=== PATIENT | male | born 1955 | race Caucasian/White ===

== ENCOUNTER → 2017-08-08 08:37 | Outpatient (CLI) | payer OTHER, SELFPAY ==
--- NOTE | 2017-08-08 08:41 | ECHOD_ITS ---
Reason For Study: AFIB/FLUTTER Procedure This was a 2D Doppler, Color Flow transthoracic echocardiogram. The exam was of fair technical quality due to body habitus. The study was technically difficult. Exam performed in department. Left Ventricle Normal LV size. Severe segmental systolic dysfunction (see wall motion). The estimated ejection fraction is 20 %. Unable to assess diastolic dysfunction. Anterio-Basal: Hypokinetic. Lateral- Basal: Hypokinetic. Posterior-Basal: Hypokinetic. Infero-Basal: Akinetic. Basal inferoseptal: Hypokinetic. Mid-Anterior : Severely Hypokinetic. Mid-Lateral : Severely Hypokinetic. Mid- Posterior: Severely Hypokinetic. Mid-Inferior: Severely Hypokinetic. Mid-inferoseptal : Severly Hypokinetic. Mid-anteroseptal : Severely Hypokinetic. Lawrence : Severely Hypokinetic. Right Ventricle Mildly dilated right ventricle. Mild global right ventricular systolic dysfunction. Atria The left atrium is severely enlarged. The right atrium is moderately enlarged. No doppler evidence for ASD. Mitral Valve There is no mitral annular calcification. Normal mitral valve. Mild (1+) mitral valve insufficiency. Tricuspid Valve Normal tricuspid valve. Mild tricuspid valve insufficiency. Right ventricular systolic pressure estimated to be 48 mmHg. Aortic Valve Trisinus/trileaflet aortic valve. Mild diffuse aortic valve thickening. Mild diffuse aortic valve calcification. Severe aortic stenosis. Pulmonic Valve The pulmonic valve is not well visualized. Trivial pulmonic valve insufficiency. Great Vessels Normal sized aortic root. Pericardium/Pleural No pericardial effusion. MMode/2D Measurements & Calculations LVIDd: 5.3 cm IVSd: 1.2 cm LVOT diam: 2.0 cm LVIDs: 4.4 cm LVPWd: 1.2 cm LVOT area: 3.2 cm2 RVDd: 4.2 cm FS: 17.4 % Ao root diam: 3.2 cm LAV(MOD-bp): 113.5 ml LVAd ap4: 35.8 cm2 LAV(MOD-bp) Indexed: 49.7 ml/m2 EDV(MOD-sp4): 127.0 ml LAV(MOD-sp2): 123.4 ml EDV(sp4-el): 128.7 ml LAV(MOD-sp4): 101.5 ml LVAs ap4: 32.2 cm2 ESV(MOD-sp4): 98.5 ml ESV(sp4-el): 100.7 ml EF(MOD-sp4): 22.5 % EF(sp4-el): 21.7 % SV(MOD-sp4): 28.5 ml SV(sp4-el): 28.0 ml LA A4 area: 30.1 cm2 RA A4 area: 31.6 cm2 Doppler Measurements & Calculations MV E max juliette: 89.3 cm/sec Ao V2 max: 233.2 cm/sec LV V1 max: 58.5 cm/sec Ao max P.9 mmHg LV V1 max P.4 mmHg Ao V2 mean: 179.9 cm/sec LV V1 mean P.79 mmHg Ao mean P.2 mmHg LV V1 mean: 41.0 cm/sec Ao V2 VTI: 41.6 cm LV V1 VTI: 11.2 cm JUAN JOSÉ(I,D): 0.87 cm2 JUAN JOSÉ(V,D): 0.81 cm2 SV(LVOT): 36.2 ml PA V2 max: 60.6 cm/sec TR max juliette: 335.5 cm/sec TR max P.1 mmHg Interpretation Summary The study was technically difficult. Severe segmental systolic dysfunction (see wall motion). The estimated ejection fraction is 20 %. Mildly dilated right ventricle. Mild global right ventricular systolic dysfunction. The left atrium is severely enlarged. The right atrium is moderately enlarged. Mild (1+) mitral valve insufficiency. Mild tricuspid valve insufficiency. Severe aortic stenosis. Trivial pulmonic valve insufficiency. Right ventricular systolic pressure estimated to be 48 mmHg. Unable to assess diastolic dysfunction. Ordering Physician: Nathan Rojo Referring Physician: DANYA LUNA Performed By: Kyra Hill RDCS
== END ==
PROVIDERS: Family Provider Nurse Practitioner; PCP Nurse Practitioner; Visit Provider Internal Medicine Cardiovascular Disease
DX: I48.0 Paroxysmal atrial fibrillation (principal); I10 Essential (primary) hypertension; Z79.01 Long term (current) use of anticoagulants
CPT/HCPCS: 93306

== ENCOUNTER → 2017-08-15 10:17 | Outpatient (CLI) | payer OTHER, SELFPAY ==
--- NOTE | 2017-08-15 10:19 | RAD_ITS ---
STUDY: X-RAY CHEST REASON FOR EXAM: Male, 61 years old. Abnormal echocardiogram TECHNIQUE: Frontal and lateral views of the chest. COMPARISON: 08/25/2012, 04/24/2014. FINDINGS: The lungs are clear and expanded. Stable granuloma right lower lung. There is no demonstrated pleural abnormality. There is mild cardiac enlargement. Normal mediastinum and alec. Normal visualized pulmonary arteries. Normal visualized aortic arch and descending thoracic aorta. Normal visualized thoracic spine. Normal visualized ribs, clavicles, and shoulders. There is no demonstrated abnormality of the visualized soft tissue structures of the upper abdomen. RAD/Chest PA and Lateral IMPRESSION: Mild cardiomegaly. No infiltrate. Stable granuloma right lower lung. Electronically Signed: Edmund Chavez DO at 23:56 EDT , Service support ,
[2017-08-15 11:38] LABS: Partial Thromboplast Time 37.9 Seconds (24.1-36.2)
[2017-08-15 11:40] LABS: Hematocrit 51.7 % (40-54); Hemoglobin 16.1 g/dl (13.0-16.5); Mean Corp Hgb Conc 31.1 g/gl (32-36); Mean Corpuscular Hgb 30.6 pg (27.0-32.0); Mean Corpuscular Volume 98.1 fL (80-94); Mean Platelet Vol. 10.9 fl (6.2-12.0); Platelet Count 196 K/mm3 (150-450); RBC Distribution Width CV 20.8 % (11.6-14.6); RBC Distribution Width SD 75.7 fl (35.1-43.9); Red Blood Count 5.27 M/mm3 (4.6-6.2); White Blood Count 8.2 K/mm3 (4.4-11.0)
[2017-08-15 11:42] LABS: Scan Indicated on CBC? Y/N YES- FLAGS NOTED
[2017-08-15 11:56] LABS: Anion Gap 9 (5-15); BUN 17 mg/dL (7-18); Calcium,Total 8.9 mg/dL (8.5-10.1); Chloride 106 mmol/L (98-107); Creatinine, Serum 0.85 mg/dL (0.70-1.30); EST Glomerular Filtration Rate 97 mL/min (>60); Est Glom Filt Rate - Afr Amer 118 mL/min (>60); Glucose 86 mg/dL (74-106); Potassium 4.4 mmol/L (3.5-5.1); Sodium Level 139 mmol/L (136-145)
[2017-08-15 12:25] LABS: Differential Comment SCANNED
== END ==
PROVIDERS: Family Provider Nurse Practitioner; PCP Nurse Practitioner; Visit Provider Internal Medicine Cardiovascular Disease
DX: I51.9 Heart disease, unspecified (principal); I35.0 Nonrheumatic aortic (valve) stenosis; R93.1 Abnormal findings on diagnostic imaging of heart and coronary circulation; I48.0 Paroxysmal atrial fibrillation; R60.0 Localized edema
CPT/HCPCS: 36415; 71046; 80048; 85027; 85610; 85730; 93225; 93226

== ENCOUNTER 2017-08-22 07:59 | Day surgery (SDC) | payer OTHER, SELFPAY ==
--- NOTE | 2017-08-22 07:59 | DT_ITS ---
This patient was seen during an EMR downtime August 20, 2017 - August 27, 2017. This patient may have a combination of paper and electronic documentation or all paper documentation. All documentation is viewable within the e-chart portion of [facility] for each patient visit.
--- NOTE | 2017-08-24 16:57 | CL.D_ITS ---
Patient Name: SABRA DAVID Study Date: 08/22/2017 Performing: Nathan Rojo MD Ht: 72 inches 182.88 cm : 1955 Wt: 235.3 lbs 106.59 kg Age: 61 Gender: male BSA: 2.28 PROCEDURE(S) PERFORMED LF81-PVU/LHC/COR/LV CLINICAL PROFILE AND INDICATIONS Indications: Cardiac Arrythmia, Valvular Disease, Cardiomyopathy Heart Failure: None Stress/Imaging Stress/Image Study Performed: No Angina Classification Anginal Classification w/in 2 Weeks: No symptoms CAD Presentations: No Sxs, no angina. CONCLUSIONS Elevated Left Ventricular End Diastolic Pressure Right heart pressures - severely elevated The patient has pulmonary hypertension which is severe. Intracardiac shunting: None Global LV systolic dysfunction- Severe LVEF: by LV gram 25 % [place] Multivessel CAD Aortic Valve Stenosis - Mild RECOMMENDATIONS Risk factor modification Medical therapy Consider further evaluation of AV disorder with JILL DESCRIPTION OF PROCEDURE The patient arrived to the procedure lab. The risks and benefits of the procedure as well as a full d escription of our services here and current unavailability of surgical backup were fully explained to the patient and/or their significant other prior to the catheterization. The Timeout was completed, verifying the correct patient and procedure. The patient's procedural site was prepped and draped in the usual fashion. Local anesthetic was given subcutaneously to right groin region with Lidocaine 2%. Using a modified Seldinger technique, arterial access was obtained via the right femoral artery, a 4 Fr sheath was inserted Venous access was obtained via the right femoral vein, a 7Fr sheath was insert ed. A 7Fr thermal dilution catheter was inserted and right heart pressures were recorded, it was then advanced to PA position for cardiac outputs. Thermal dilution cardiac outputs were then recorded. O2 saturations were then obtained. Left Ventriculography was performed in FAJARDO projection using a 4 Fr. Pigtail catheter. LV to AO pullback pressures were then recorded. The Thermal dilution catheter was t hen removed. Left Coronary Artery selective angiography was performed in multiple views using a 4 Fr. JL5 catheter. Right Coronary Artery selective angiography was then performed in multiple views using a 4 Fr. 3DRC catheter.The arterial sheath was pulled and manual compression applied until hemostasis is achieved.. The venous sheath was then pulled and manual compression applied until hemostasis achi eved CORONARY ANGIOGRAPHY DOMINANCE: Right Dominant LEFT HEART ASSESSMENT Left Ventricular Ejection Fraction: by LV Gram 25 % Global Hypokinesis. Global Hypokinesis Elevated Left Ventricular End Diastolic Pressure LVEDP: 16 mmHg RIGHT HEART ASSESSMENT Thermal CO: 3.98 Thermal CI: 1.75 Bo CO: 4.95 Bo CI: 2.17 PW: /24 20 PA: 62/30 40 RV: 53/2 11 RA: / 12 PVR: 402 SVR: 1769 Aortic Valve Area: 1.85 Aortic Valve Index: 0.81 Aortic Valve Mean Gradient: 7.7 Mitral Valve Area: >3.50 Mitral Valve index: 1.54 Mitral Valve Mean Gradient: 1.9 Right Heart pressures - elevated Pulmonary Hypertension Severe Intracardiac shunting: None LEFT MAIN: Angiographically normal LEFT ANTERIOR DECENDING ARTERY: PROX LAD: Mild calcification, Mild luminal irregularities MID LAD: 25-50 % Stenosis CIRCUMFLEX ARTERY: Mild luminal irregularities PROX CIRC: Mild calcification RIGHT CORONARY ARTERY: Mild luminal irregularities MID RCA: Eccentric: 25 % Stenosis VALVE FINDINGS: Aortic Valve Stenosis - mild Normal Mitral Valve function AORTIC ROOT: Angiographically normal COMPLICATIONS No Complications PROCEDURE MEDICATIONS Versed 1 mg IV Versed 1 mg IV SUMMARY OF HEMODYNAMIC DATA Time AIR REST ECG 11:39:59 RA /13 (12) SV 12:02:43 RV 53/2, 11 12:07:24 PW (20) PV 12:09:15 PA 62/30 (40) PA 12:09:29 AO 131/78 (100) SA 12:16:12 LV 124/17, 23 12:18:03 PW / (21) 12:18:03 LV 125/15, 16 12:18:10 PW / (20) 12:18:10 LV 139/10, 16 12:19:59 PW / (18) 12:19:59 LV 136/11, 19 12:20:18 LVp 141/10, 18 12:20:29 AOp 124/76 (96) 12:20:34 PA 61/27 (38) 12:21:09 RV 51/3, 10 12:21:26 RA /13 (11) 12:21:43 Valve Area (c P-P/ms Time AIR REST Mitral 3.50 1.9 mn/242 ms 12:18:03 Aortic 1.86 7.7 mn/216 ms 17.0 pk/216 ms 12:20:29 Type SV CO (l/m) CI (l/m/ HR Time AIR REST Thermal 48.00 3.98 1.75 83 00:00:00 Bo 59.60 4.95 2.17 83 00:00:00 Label % O2 Pres/Loc Time AIR REST AO 96 PV 12:43:27 SVC 59 12:43:53 IVC 68 SV 12:44:05 PA 62 PA 12:44:27 Signed By Nathan Rojo MD On 08/24/2017 14:51:55 Nathan Rojo MD
[2017-08-27 12:31] LABS: Blood Gas Specimen Type VEN; VBG BASE EXCESS 2 mmol/L (-1.0-3.5); VBG Bicarbonate 26 mmol/L (22-26); VBG Oxygen Content 28 mmol/L (23-33); VBG PO2 32 mmHg (25-40); VBG SO2 62 % (50-70); VBG pCO2 42.1 mmHg (41-51); VBG pH 7.41 (7.32-7.42)
[2017-08-27 12:31] LABS: Blood Gas Specimen Type VEN; VBG BASE EXCESS -1 mmol/L (-1.0-3.5); VBG Bicarbonate 25 mmol/L (22-26); VBG Oxygen Content 26 mmol/L (23-33); VBG PO2 32 mmHg (25-40); VBG SO2 59 % (50-70); VBG pH 7.37 (7.32-7.42)
[2017-08-27 12:31] LABS: Base Excess -1 mmol/L (-2 to +2); Bicarbonate 23.5 mmol/L (22-26); Blood Gas Specimen Type ART; PO2 76 mmHG (75-100); SO2 96 % (95-99); Total Carbon Dioxide 25 mmol/L; pCO2 34.7 mmHg (35-45); pH 7.44 (7.35-7.45)
[2017-08-27 12:31] LABS: Blood Gas Specimen Type VEN; VBG BASE EXCESS -1 mmol/L (-1.0-3.5); VBG Bicarbonate 24 mmol/L (22-26); VBG Oxygen Content 26 mmol/L (23-33); VBG PO2 36 mmHg (25-40); VBG SO2 68 % (50-70); VBG pCO2 40.7 mmHg (41-51); VBG pH 7.39 (7.32-7.42)
--- NOTE | 2017-09-11 08:42 | PCM.HP.BLA ---
Problem List (1) Paroxysmal atrial fibrillation Status: Acute (2) Nonrheumatic aortic (valve) stenosis Status: Chronic (3) Severe left ventricular systolic dysfunction Status: Acute (4) Hypertension Status: Chronic History and Physical Date of Admission: 08/22/17 For original history of present illness, past medical history, family history, social history, review of systems, physical examination, initial impression and plan please see previously dictated outpatient [facility] from 07/19/2017. This is an updated history of present illness to accompany the 08/22/2017 outpatient [facility] and written update of history of present illness. This is a 61-year-old white male who presented originally for evaluation for paroxysmal atrial fibrillation. He subsequently underwent evaluation as an outpatient with a transthoracic echocardiogram. He was noted to have left ventricular systolic dysfunction with an LVEF of 20%, right ventricular dysfunction, biatrial enlargement, mild MR/TR, severe aortic valve stenosis, and an estimated RV systolic pressure 48 mmHg. His case was reviewed. It was recommended he proceed with further evaluation with diagnostic cardiac catheterization. The cardiac catheterization procedure and risks were discussed with the patient. He was agreeable to this approach. Allergies: No known drug allergies Medications: Furosemide 1 tablet p.o. daily Potassium chloride 20 mEq p.o. daily Magnesium oxide 400 mg p.o. daily Sotalol 80 mg p.o. daily Warfarin 5 mg p.o. daily-adjustment as needed Gabapentin 300 mg p.o. 3 times daily Past medical history: Paroxysmal atrial fibrillation Obstructive sleep apnea Hypertension Lower extremity peripheral pitting edema Past surgical history: Hernia repair Laminectomy Family history: Father: Atrial fibrillation/diabetes mellitus Mother: DVT Siblings: DVT Social history: Tobacco use: Positive: Less than 10 cigarettes per day Alcohol use: Positive Illicit drug use: Denies Review of systems: Denies chest discomfort or shortness of breath with rest or activity Admits to musculoskeletal issues and balance related issues secondary to his previous back related events/surgery Physical examination: HEENT: Pupils equal round reactive to light; extraocular muscles intact; neck with good range of motion without obvious lymph node enlargement; poor dentition Lungs: Clear to auscultation bilaterally Cardiovascular examination: Irregular rhythm with normal S1 and S2 Abdomen: Positive bowel sounds; soft; nontender; no obvious organomegaly Extremities: Trace bilateral lower extremity peripheral pitting edema Laboratory studies: Office ECG: Atrial fibrillation with right bundle branch block with nonspecific ST and T-wave changes Impression and plan: 1. Paroxysmal atrial fibrillation The patient will continue rate control therapy and anticoagulant therapy as deemed appropriate. He will have his medications adjusted in and around the time of additional noninvasive and invasive procedures. 2. Severe left ventricular systolic dysfunction The patient has noninvasive findings compatible with an underlying cardiomyopathy. The etiology is unclear as to whether this is related to an underlying cardiac dysrhythmia/tachycardic induced cardiomyopathy, related to underlying valvular heart disease based on concerns of aortic valve stenosis, or related to underlying CAD with myocardial ischemia, etc.. Some time based upon his clinical course he was undergo further evaluation care with diagnostic cardiac catheterization to assess his underlying cardiovascular hemodynamics, valvular heart disease, and coronary anatomy. This will help guide further evaluation and care. 3. Aortic valve stenosis The patient has underlying aortic valve stenosis. This will be further assessed with his diagnostic cardiac catheterization. Depending upon the findings he may need to be considered at some point time for further evaluation and care of his aortic valve. This may include an upcoming transesophageal echocardiogram. 4. Hypertension The patient's blood pressures will be monitored. His medications be adjusted as deemed appropriate. Comment: The above was discussed and reviewed with patient. He was agreeable to the aforementioned evaluation and care plan. This note was generated with [employer] dictation software. It may contain incorrect words, spelling, and punctuation that were not noted in checking the note before signing.
--- NOTE | 2017-09-11 08:56 | HP.PCM_ITS ---
Problem List (1) Paroxysmal atrial fibrillation Status: Acute (2) Severe left ventricular systolic dysfunction Status: Acute (3) Nonrheumatic aortic (valve) stenosis Status: Chronic (4) Hypertension Status: Chronic Qualifiers: History and Physical Date of Admission: 08/22/17 For original history of present illness, past medical history, family history, social history, review of systems, physical examination, initial impression and plan please see previously dictated outpatient [facility] from 07/19/2017. This is an updated history of present illness to accompany the 08/22/2017 outpatient [facility] and written update of history of present illness. This is a 61-year-old white male who presented originally for evaluation for paroxysmal atrial fibrillation. He subsequently underwent evaluation as an outpatient with a transthoracic echocardiogram. He was noted to have left ventricular systolic dysfunction with an LVEF of 20%, right ventricular dysfunction, biatrial enlargement, mild MR/TR, severe aortic valve stenosis, and an estimated RV systolic pressure 48 mmHg. His case was reviewed. It was recommended he proceed with further evaluation with diagnostic cardiac catheterization. The cardiac catheterization procedure and risks were discussed with the patient. He was agreeable to this approach. Allergies: No known drug allergies Medications: Furosemide 1 tablet p.o. daily Potassium chloride 20 mEq p.o. daily Magnesium oxide 400 mg p.o. daily Sotalol 80 mg p.o. daily Warfarin 5 mg p.o. daily-adjustment as needed Gabapentin 300 mg p.o. 3 times daily Past medical history: Paroxysmal atrial fibrillation Obstructive sleep apnea Hypertension Lower extremity peripheral pitting edema Past surgical history: Hernia repair Laminectomy Family history: Father: Atrial fibrillation/diabetes mellitus Mother: DVT Siblings: DVT Social history: Tobacco use: Positive: Less than 10 cigarettes per day Alcohol use: Positive Illicit drug use: Denies Review of systems: Denies chest discomfort or shortness of breath with rest or activity Admits to musculoskeletal issues and balance related issues secondary to his previous back related events/surgery Physical examination: HEENT: Pupils equal round reactive to light; extraocular muscles intact; neck with good range of motion without obvious lymph node enlargement; poor dentition Lungs: Clear to auscultation bilaterally Cardiovascular examination: Irregular rhythm with normal S1 and S2 Abdomen: Positive bowel sounds; soft; nontender; no obvious organomegaly Extremities: Trace bilateral lower extremity peripheral pitting edema Laboratory studies: Office ECG: Atrial fibrillation with right bundle branch block with nonspecific ST and T-wave changes Impression and plan: 1. Paroxysmal atrial fibrillation The patient will continue rate control therapy and anticoagulant therapy as deemed appropriate. He will have his medications adjusted in and around the time of additional noninvasive and invasive procedures. 2. Severe left ventricular systolic dysfunction The patient has noninvasive findings compatible with an underlying cardiomyopathy. The etiology is unclear as to whether this is related to an underlying cardiac dysrhythmia/tachycardic induced cardiomyopathy, related to underlying valvular heart disease based on concerns of aortic valve stenosis, or related to underlying CAD with myocardial ischemia, etc.. Some time based upon his clinical course he was undergo further evaluation care with diagnostic cardiac catheterization to assess his underlying cardiovascular hemodynamics, valvular heart disease, and coronary anatomy. This will help guide further evaluation and care. 3. Aortic valve stenosis The patient has underlying aortic valve stenosis. This will be further assessed with his diagnostic cardiac catheterization. Depending upon the findings he may need to be considered at some point time for further evaluation and care of his aortic valve. This may include an upcoming transesophageal echocardiogram. 4. Hypertension The patient's blood pressures will be monitored. His medications be adjusted as deemed appropriate. Comment: The above was discussed and reviewed with patient. He was agreeable to the aforementioned evaluation and care plan. This note was generated with [employer] dictation software. It may contain incorrect words, spelling, and punctuation that were not noted in checking the note before signing.
== END 2017-08-22 18:09 | disposition home or self-care (01) ==
LOC: CLSP 08-23 11:40
PROVIDERS: Family Provider Nurse Practitioner; PCP Nurse Practitioner; Visit Provider Internal Medicine Cardiovascular Disease
DX: I42.9 Cardiomyopathy, unspecified (principal); I38 Endocarditis, valve unspecified; I49.9 Cardiac arrhythmia, unspecified
CPT/HCPCS: 36416; 82803; 85610; 93460; 99152; 99153; J7040; Q9967; C1751; C1769; C1894

== ENCOUNTER → 2017-09-05 10:28 | Outpatient (CLI) | payer OTHER, SELFPAY ==
--- NOTE | 2017-09-05 10:31 | RAD_ITS ---
STUDY: X-RAY - PELVIS AND LEFT HIP REASON FOR EXAM: Male, 61 years old. Chronic hip pain TECHNIQUE: Radiological exam, hip, unilateral, with pelvis when performed; 2 or 3 views. COMPARISON: None. FINDINGS: There is flattening of the left femoral head with narrowing of the axial compartment of the left hip joint. There is also buttressing of the left femoral neck. The right hip joint is normal. Sacroiliac joints are normal. There are degenerative changes involving the lower lumbosacral spine no fracture. Vascular calcifications are in both groin. RAD/Hip 2-3 Views with Pelvis IMPRESSION: Flattening of the left femoral head with severe osteoarthritis of the left hip joint. No fracture Electronically Signed: Dick Ramírez, at 3:15 EDT Tel , Service support ,
== END ==
PROVIDERS: Family Provider Nurse Practitioner; PCP Nurse Practitioner; Visit Provider Nurse Practitioner
DX: M25.552 Pain in left hip (principal)
CPT/HCPCS: 73502

== ENCOUNTER → 2017-09-11 09:46 | Outpatient (CLI) | payer OTHER, SELFPAY ==
--- NOTE | 2017-09-11 08:42 | PCM.HP.BLA ---
Problem List (1) Paroxysmal atrial fibrillation Status: Acute (2) Severe left ventricular systolic dysfunction Status: Acute (3) Nonrheumatic aortic (valve) stenosis Status: Chronic (4) Hypertension Status: Chronic Qualifiers: History and Physical Date of Admission: 08/22/17 For original history of present illness, past medical history, family history, social history, review of systems, physical examination, initial impression and plan please see previously dictated outpatient [facility] from 07/19/2017. This is an updated history of present illness to accompany the 08/22/2017 outpatient [facility] and written update of history of present illness. This is a 61-year-old white male who presented originally for evaluation for paroxysmal atrial fibrillation. He subsequently underwent evaluation as an outpatient with a transthoracic echocardiogram. He was noted to have left ventricular systolic dysfunction with an LVEF of 20%, right ventricular dysfunction, biatrial enlargement, mild MR/TR, severe aortic valve stenosis, and an estimated RV systolic pressure 48 mmHg. His case was reviewed. It was recommended he proceed with further evaluation with diagnostic cardiac catheterization. The cardiac catheterization procedure and risks were discussed with the patient. He was agreeable to this approach. Allergies: No known drug allergies Medications: Furosemide 1 tablet p.o. daily Potassium chloride 20 mEq p.o. daily Magnesium oxide 400 mg p.o. daily Sotalol 80 mg p.o. daily Warfarin 5 mg p.o. daily-adjustment as needed Gabapentin 300 mg p.o. 3 times daily Past medical history: Paroxysmal atrial fibrillation Obstructive sleep apnea Hypertension Lower extremity peripheral pitting edema Past surgical history: Hernia repair Laminectomy Family history: Father: Atrial fibrillation/diabetes mellitus Mother: DVT Siblings: DVT Social history: Tobacco use: Positive: Less than 10 cigarettes per day Alcohol use: Positive Illicit drug use: Denies Review of systems: Denies chest discomfort or shortness of breath with rest or activity Admits to musculoskeletal issues and balance related issues secondary to his previous back related events/surgery Physical examination: HEENT: Pupils equal round reactive to light; extraocular muscles intact; neck with good range of motion without obvious lymph node enlargement; poor dentition Lungs: Clear to auscultation bilaterally Cardiovascular examination: Irregular rhythm with normal S1 and S2 Abdomen: Positive bowel sounds; soft; nontender; no obvious organomegaly Extremities: Trace bilateral lower extremity peripheral pitting edema Laboratory studies: Office ECG: Atrial fibrillation with right bundle branch block with nonspecific ST and T-wave changes Impression and plan: 1. Paroxysmal atrial fibrillation The patient will continue rate control therapy and anticoagulant therapy as deemed appropriate. He will have his medications adjusted in and around the time of additional noninvasive and invasive procedures. 2. Severe left ventricular systolic dysfunction The patient has noninvasive findings compatible with an underlying cardiomyopathy. The etiology is unclear as to whether this is related to an underlying cardiac dysrhythmia/tachycardic induced cardiomyopathy, related to underlying valvular heart disease based on concerns of aortic valve stenosis, or related to underlying CAD with myocardial ischemia, etc.. Some time based upon his clinical course he was undergo further evaluation care with diagnostic cardiac catheterization to assess his underlying cardiovascular hemodynamics, valvular heart disease, and coronary anatomy. This will help guide further evaluation and care. 3. Aortic valve stenosis The patient has underlying aortic valve stenosis. This will be further assessed with his diagnostic cardiac catheterization. Depending upon the findings he may need to be considered at some point time for further evaluation and care of his aortic valve. This may include an upcoming transesophageal echocardiogram. 4. Hypertension The patient's blood pressures will be monitored. His medications be adjusted as deemed appropriate. Comment: The above was discussed and reviewed with patient. He was agreeable to the aforementioned evaluation and care plan. This note was generated with [employer] dictation software. It may contain incorrect words, spelling, and punctuation that were not noted in checking the note before signing.
--- NOTE | 2017-09-11 09:49 | ECHOTEE_ITS ---
Reason For Study: AV DISORDER (STENOSIS) Medication JILL probe passed without difficulty. No complications were noted. Cetacaine Topical Hulbert given X4 orally. Versed 1 mg given slow IVP. Fentanyl 50 mcg given slow IVP. Left Ventricle Moderately severe global left ventricular systolic dysfunction. The estimated ejection fraction is 30 %. Right Ventricle Moderate global right ventricular systolic dysfunction. Atria No doppler evidence for ASD. Bubble contrast study negative for right to left interatrial shunt. The left atrium is severely enlarged. There is moderate sponatenous contrast in the left atrium. 2D echocardiogarphic images obtained demonstrate a soft mobile echodensity appearing c/w a left atrial appendage thrombus. The right atrium is severely enlarged. There is no sponatenous contrast in the right atrium. No obvious RA / appendage thrombus identified. Mitral Valve There is no mitral annular calcification. Mild diffuse mitral valve thickening. Mild focal mitral valve calcification, bileaflet. Mild (1+) mitral valve insufficiency. Tricuspid Valve Normal tricuspid valve. Mild tricuspid valve insufficiency. Aortic Valve Trisinus/trileaflet aortic valve. Mild diffuse aortic valve thickening. Moderate focal aortic valve calcification. Aortic valve stenosis: moderate: JUAN JOSÉ of 1.2 cm^2 (by planimetry). Pulmonic Valve The pulmonic valve is not well visualized. Vessels Mild atherosclerosis of the descending aorta. Pericardium No pericardial effusion. MMode/2D Measurements & Calculations Aortic Valve Planimetry: 1.2 cm2 Interpretation Summary Moderately severe global left ventricular systolic dysfunction. The estimated ejection fraction is 30 %. Moderate global right ventricular systolic dysfunction. The left atrium is severely enlarged. There is moderate sponatenous contrast in the left atrium. 2D echocardiogarphic images obtained demonstrate a soft mobile echodensity appearing c/w a left atrial appendage thrombus. The right atrium is severely enlarged. Mild diffuse mitral valve thickening. Mild focal mitral valve calcification, bileaflet. Mild (1+) mitral valve insufficiency. Mild tricuspid valve insufficiency. Aortic valve stenosis: moderate: JUAN JOSÉ of 1.2 cm^2 (by planimetry) Bubble contrast study negative for right to left interatrial shunt. Mild atherosclerosis of the descending aorta. Ordering Physician: Nathan Rojo Referring Physician: Gian Wong Performed By: Mariaa Griffin RDCS, RVT ??? Reason For Study: AV DISORDER (STENOSIS) Interpretation Summary Moderately severe global left ventricular systolic dysfunction. The estimated ejection fraction is 30 %. Moderate global right ventricular systolic dysfunction. The left atrium is severely enlarged. There is moderate sponatenous contrast in the left atrium. 2D echocardiogarphic images obtained demonstrate a soft mobile echodensity appearing c/w a left atrial appendage thrombus. The right atrium is severely enlarged. Mild diffuse mitral valve thickening. Mild focal mitral valve calcification, bileaflet. Mild (1+) mitral valve insufficiency. Mild tricuspid valve insufficiency. Aortic valve stenosis: moderate: JUAN JOSÉ of 1.2 cm^2 (by planimetry) Bubble contrast study negative for right to left interatrial shunt. Mild atherosclerosis of the descending aorta. Ordering Physician: Nathan Rojo Referring Physician: Gina Wong Performed By: Mariaa Griffin RDCS, RVT
== END ==
PROVIDERS: Family Provider Nurse Practitioner; PCP Nurse Practitioner; Visit Provider Internal Medicine Cardiovascular Disease
DX: I35.0 Nonrheumatic aortic (valve) stenosis (principal); R93.1 Abnormal findings on diagnostic imaging of heart and coronary circulation; I51.9 Heart disease, unspecified
CPT/HCPCS: 93312; 93320; 93325; J7030; J7040; A4216

== ENCOUNTER 2018-03-30 13:25 | Emergency (ER) | payer OTHER, SELFPAY ==
[2018-03-30 13:25] VITALS: BP 157/80; PULSE 71; RESP 18; TEMP 36.9; O2SAT 94; BMI 31.8
--- NOTE | 2018-03-30 14:00 | ED.VISSUMM ---
- ER Visit Summary Date of Service: 03/30/18 Chief Complaint: [] Urinary frequency today History of Present Illness: The patient is a 62 M [] history of left hip problems pending hip replacement surgery Amelia españa that is been stable hypertension, uses a walker to walk was in his usual state of health today when he noticed he just kept having the sense to void urine indicates he is voiding small squirts of urine as he describes it every 5-10 minutes he came in to be evaluated he has no pain in any part of his body no back pain no abdominal pain no nausea vomiting fever, he has no history of any ailments or problems Physical Examination: [] His vital signs are within normal range see those reports General, no distress resting comfortably HEENT is generally unremarkable The neck is supple no adenopathy Cardiovascular, regular rate and rhythm Lungs, clear bilateral Abdomen, soft nontender, he has prior hernia surgery his exam is unremarkable the abdomen very soft and nontender his back and was unremarkable there is no sign that his bladder is distended Extremities, no clubbing cyanosis or edema Neurologic, awake alert answering questions appropriately moving all 4 extremities Test Results: [] Emergency Department Course and Treatment: [] He did void a very small amount of urine and feels now that he is bladder is not distended he does not feel the urge to void recommended Maldonado catheter for postvoid residual he does not wish to have that done he does agree to bladder scan UA screening labs his INR is been therapeutic we will check that urine culture sent Treatment Plan: [] Patient's bladder scan was about 10 cc residual urine, the UA shows signs of UTI urine culture sent, the rest of the screening labs are generally unremarkable he remained stable here in the department, discussed the above to discomfort discharge home started on flex, I cautioned him related to the Coumadin INR to have that frequently checked given the antibiotics and he will do so, follow-up with his outpatient providers and return for change in symptoms and also given referral to [facility] Disposition: [] Home stable Impression: [] Urinary tract infection urinary frequency This note was generated with L'Ideal[employer] software. It may contain incorrect words, spelling, and punctuation that were not noted in review of the chart prior to signing ED Disposition - Plan for ED Patient: Chief Complaint: Complaint Instructions: ED Retention Urinary Male, ED UTI Cystitis Male Prescriptions: Cephalexin [Keflex] 500 mg PO Q6 #40 capsule Ciprofloxacin [Cipro] 500 mg PO BID #14 tablet Phenazopyridine HCl [Azo Urinary Pain Relief] 95 mg PO BID #7 tablet Referrals: Cash Kam MD [STAFF PHYSICIAN] - Gina Wong NP-C [Primary Care Provider] -
[2018-03-30] MEDS: 0.9% Normal Saline 1,000 ML 125 ML IV (14:12)
[2018-03-30 14:14] LABS: Color, Urine Yellow (Yellow); Glucose, Dipstick Normal (Normal); Ketone-Dipstick 15 mg/dl (Negative); Leukocyte Esterase-Dipstick 500 /ul (Negative); Nitrite-Dipstick Negative (Negative); Occult Blood-Urine 250 /ul (Negative); Protein-Dipstick 500 mg/dl (Negative); Urine Clarity Turbid (Clear); Urine Urobilinogen 1 mg/dl (Normal)
[2018-03-30 14:17] LABS: Urine Bilirubin Dipstick 1 mg/dL (Negative)
[2018-03-30 14:18] LABS: Bacteria 3+ /hpf (None Seen); Mucous, Urine RARE /hpf (<or=2+); Red Blood Cells-Urine 10-25 SEEN /hpf (0-5); Squamous Epithelial Cells - UA 0-5 SEEN /hpf (0-5); White Blood Cells 25-50 SEEN /hpf (0-5)
[2018-03-30 14:19] VITALS: BP 157/80; PULSE 70; RESP 17; TEMP 36.6; O2SAT 98
[2018-03-30 14:27] LABS: Absolute Lymphocyte Count 2.36 X10^3/ul (0.83-4.51); Absolute Neutrophil Count 7.6 X10^3/uL (2.0-7.7); Basophil# 0.05 X10^3/uL; Basophil% 0.5 % (0-1); Eosinophil# 0.11 X10^3/uL; Hemoglobin 16.6 g/dl (13.0-16.5); Lymphocyte # 2.36 X10^3/ul (4.0); Lymphocyte % 21.3 % (19-41); Mean Corp Hgb Conc 34.6 g/gl (32-36); Mean Corpuscular Hgb 39.7 pg (27.0-32.0); Mean Corpuscular Volume 114.8 fL (80-94); Mean Platelet Vol. 10.5 fl (6.2-12.0); Monocyte# 0.91 X10^3/uL; Monocyte% 8.2 % (0-10); Neutrophil # 7.59 X10^3/uL (2.7-7.7); Neutrophil % 68.5 % (47-70); POSITIVE COUNT NO; POSITIVE DIFFERENTIAL NO; POSITIVE MORPHOLOGY NO; Platelet Count 244 K/mm3 (150-450); RBC Distribution Width SD 57.2 fl (35.1-43.9); Red Blood Count 4.18 M/mm3 (4.6-6.2); White Blood Count 11.1 K/mm3 (4.4-11.0)
[2018-03-30 14:36] LABS: International Normalized Ratio 2.3; Prothrombin Time (Protime)PT. 25.3 SECONDS (11.7-14.9)
[2018-03-30 14:38] LABS: Anion Gap 10 (5-15); BUN 16 mg/dL (7-18); BUN/Creat Ratio 20.8 RATIO (10-20); Calcium,Total 8.8 mg/dL (8.5-10.1); Chloride 104 mmol/L (98-107); Creatinine, Serum 0.77 mg/dL (0.70-1.30); EST Glomerular Filtration Rate 109 mL/min (>60); Est Glom Filt Rate - Afr Amer 132 mL/min (>60); Estimated Creatinine Clearance 110.58 ml/min; Glucose 89 mg/dL (74-106); Potassium 3.9 mmol/L (3.5-5.1); Sodium Level 137 mmol/L (136-145)
--- NOTE | 2018-03-30 14:46 | ED.DEP ---
ED Disposition - Plan for ED Patient: Chief Complaint: Complaint Instructions: ED Retention Urinary Male, ED UTI Cystitis Male Prescriptions: Cephalexin [Keflex] 500 mg PO Q6 #40 capsule Ciprofloxacin [Cipro] 500 mg PO BID #14 tablet Phenazopyridine HCl [Azo Urinary Pain Relief] 95 mg PO BID #7 tablet Referrals: Gina Wong NP-C [Primary Care Provider] - Cash Kam MD [STAFF PHYSICIAN] -
--- NOTE | 2018-03-30 14:50 | ED.DEP ---
ED Disposition - Plan for ED Patient: Chief Complaint: Complaint Instructions: ED Retention Urinary Male, ED UTI Cystitis Male Prescriptions: Cephalexin [Keflex] 500 mg PO Q6 #40 capsule Ciprofloxacin [Cipro] 500 mg PO BID #14 tablet Phenazopyridine HCl [Azo Urinary Pain Relief] 95 mg PO BID #7 tablet Referrals: Cash Kam MD [STAFF PHYSICIAN] - Gina Wong NP-C [Primary Care Provider] -
[2018-03-30] MEDS: Cephalexin 250 MG Capsule 500 MG PO (14:59)
[2018-03-30 15:02] VITALS: BP 166/95; PULSE 89; RESP 17; O2SAT 96
== END 2018-03-30 15:12 | disposition home or self-care (01) ==
LOC: ED 14:30
PROVIDERS: Emergency Provider Emergency Medicine; Family Provider Nurse Practitioner; PCP Nurse Practitioner
DX: N39.0 Urinary tract infection, site not specified (principal); R35.0 Frequency of micturition; I10 Essential (primary) hypertension; I48.91 Unspecified atrial fibrillation; Z79.01 Long term (current) use of anticoagulants; Z79.82 Long term (current) use of aspirin; Z79.899 Other long term (current) drug therapy
CPT/HCPCS: 80048; 81001; 85025; 85610; 87086; 87088; 87186; 96360; 99284; J7030

== ENCOUNTER → 2018-04-24 11:25 | Outpatient (CLI) | payer OTHER, SELFPAY ==
[2018-03-30 13:25] VITALS: BMI 31.8
== END ==
PROVIDERS: Family Provider Nurse Practitioner; PCP Nurse Practitioner; Referring Provider Nurse Practitioner Adult Health; Visit Provider Nurse Practitioner Adult Health
DX: R31.9 Hematuria, unspecified (principal)
CPT/HCPCS: 87086; 87088

== ENCOUNTER 2018-05-03 06:57 | Inpatient (IN) | payer OTHER, SELFPAY ==
[2018-05-03] VITALS (23 sets, daily range): BP systolic 92–181; BP diastolic 58–120; PULSE 47–107; RESP 14–20; TEMP 36.4–37.3; O2SAT 16–99; BMI 30.4; BMI 29.9
--- NOTE | 2018-05-03 07:41 | CT_ITS ---
STUDY: CT ABDOMEN AND PELVIS WITHOUT CONTRAST REASON FOR EXAM: Male, 62 years old. Hematuria. RADIATION DOSAGE (If Supplied By Facility): CTDIvol = ( 14.78 ) mGy, DLP = ( 776.97 ) mGycm TECHNIQUE: Transaxial images were obtained from the dome of the diaphragm to the symphysis pubis without oral contrast, and without intravenous contrast. Sagittal and coronal images were reconstructed. Individualized dose optimization techniques were used for this CT. COMPARISON: None. FINDINGS: Minimal degree of increased linear markings at the left lung base suggestive of underlying atelectasis and/or scarring. Calcified granuloma in the posterior segment of the right lower lobe. Coronary artery calcification. Normal liver. Normal gallbladder and extrahepatic biliary system. There are multiple benign calcified granulomata of the spleen. Normal pancreas. Normal bilateral adrenal glands. Moderate degree of right hydronephrosis and right hydroureter. No ureteral obstruction is seen. There is a 2.5 mm nonobstructive calculus in the upper pole calyx of the left kidney. Normal visualized stomach. Normal small intestine. There are multiple colonic diverticula consistent with diverticulosis. The appendix is visualized and appears normal. There is diffuse atherosclerotic calcification of the abdominal aorta and the major visceral branches, without a demonstrated aneurysm. Normal inferior vena cava. Normal retroperitoneum. There is a marked degree of urinary bladder distention. There is an 8.7 cm x 8.3 cm large mass in the base of the bladder. An air-fluid level is seen within the bladder. This may be related to recent Maldonado catheter manipulation. Clinical correlation is recommended. At the base of the bladder on the left side, there is inhomogeneous density with air. There is a moderate-sized umbilical hernia containing fat. Small right inguinal hernia containing fat. Small bilateral inguinal lymph nodes. There are diffuse degenerative changes of the visualized lumbar spine. 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 CT/Abdomen/Pelvis without Cont IMPRESSION: Large bladder mass as described causing a marked degree of bladder dilatation. Air is seen within the urinary bladder. This may be related to Maldonado catheter manipulation. If not, a colovesical fistula should be ruled out. Electronically Signed: Johnny Neil MD at 9:02 EST , Service support ,
--- NOTE | 2018-05-03 07:44 | ED.DCSUM_ITS ---
- ER Visit Summary Date of Service: 05/03/18 Chief Complaint: hematuria History of Present Illness: The patient is a 62 M who presents with hematuria since yesterday evening. Patient began having blood leak out of his penis and has urine that looks like blood when he goes to the bathroom. He is having pain at the end of his penis but denies any pelvic pain or abdominal pain. Patient had a urinary tract infection 1 month ago that he states was treated with Keflex and Cipro. At that time he was having urinary incontinence. His symptoms have improved. He denies any fever, nausea, vomiting, diarrhea or any other complaints. He has history of A. fib and is on Coumadin. No history of kidney stones. No history of cancer. He sees Paulina Ruby for urology. Patient is a smoker. Physical Examination: Vital signs: afebrile, hemodynamically stable, no hypoxia on room air General: well nourished, well developed, in no distress Skin: warm, dry, no rash, no pallor HEENT: normocephalic and atraumatic; PERRL, EOMI, moist mucous membranes Cardiovascular: regular rate and rhythm without murmurs, no peripheral edema, 2+ pulses all distal extremities Respiratory: No increased work of breathing, lungs are clear to auscultation bilaterally, no rales, rhonchi or wheezing Abdominal: Abdomen is soft, palpation of the left mid abdomen results and pain radiating into the left groin. normoactive bowel sounds, no guarding or rebound, no masses, no suprapubic tenderness : Patient has cony blood oozing from the urethral meatus, no lesions, no testicular swelling or tenderness, no tenderness or masses noted to palpation along the urethra, urine sample appears like gross blood MSK: Moves all extremities, no deformities, normal strength Neuro: Awake and alert, oriented ?4. No facial droop, sensation and motor function intact and symmetric Test Results: Abnormal Lab Results 05/03/18 05/03/18 05/03/18 07:40 07:40 07:40 WBC 6.4 RBC 4.15 L Hgb 16.1 Hct 48.6 MCV 117.1 H MCH 38.8 H MCHC 33.1 RDW 13.9 RDW Differential 59.2 H Plt Count 166 MPV 10.9 Immature Gran % (Auto) 0.500 Neut % (Auto) 62.1 Lymph % (Auto) 18.1 L [place] % (Auto) 12.6 H Eos % (Auto) 5.6 H Baso % (Auto) 1.1 H Absolute Neuts (auto) 4.0 Absolute Lymphs (auto) 1.16 Total Counted Not Reportable PT 28.2 H INR 2.6 APTT 36.5 H Sodium 137 Potassium 4.7 Chloride 105 Carbon Dioxide 27.0 Anion Gap 5 BUN 22 H Creatinine 0.99 Estim Creat Clear Calc 86.00 Est GFR (MDRD) Af Amer 99 Est GFR (MDRD) Non-Af 82 BUN/Creatinine Ratio 22.2 H Glucose 107 H Calcium 8.8 Urine Color Urine Clarity Urine pH Ur Specific [place] Urine Protein Urine Glucose (UA) Urine Ketones Urine Occult Blood Urine Nitrite Urine Bilirubin Urine Urobilinogen Ur Leukocyte Esterase Urine RBC Urine WBC Ur Squamous Epith Cells Urine Bacteria Urine Mucus 05/03/18 07:40 WBC RBC Hgb Hct MCV MCH MCHC RDW RDW Differential Plt Count MPV Immature Gran % (Auto) Neut % (Auto) Lymph % (Auto) [place] % (Auto) Eos % (Auto) Baso % (Auto) Absolute Neuts (auto) Absolute Lymphs (auto) Total Counted PT INR APTT Sodium Potassium Chloride Carbon Dioxide Anion Gap BUN Creatinine Estim Creat Clear Calc Est GFR (MDRD) Af Amer Est GFR (MDRD) Non-Af BUN/Creatinine Ratio Glucose Calcium Urine Color Red Urine Clarity Turbid Urine pH 8.0 Ur Specific [place] 1.015 Urine Protein 500 H Urine Glucose (UA) Normal Urine Ketones Negative Urine Occult Blood 50 H Urine Nitrite Negative Urine Bilirubin 6 H Urine Urobilinogen Normal Ur Leukocyte Esterase Negative Urine RBC > 100 SEEN Urine WBC 0 SEEN Ur Squamous Epith Cells 0 SEEN Urine Bacteria 0 SEEN Urine Mucus 0 SEEN Clinical Impression(s) from Imaging Studies Abdomen/Pelvis CT 05/03/18 07:41 IMPRESSION: Large bladder mass as described causing a marked degree of bladder dilatation. Air is seen within the urinary bladder. This may be related to Maldonado catheter manipulation. If not, a colovesical fistula should be ruled out. Electronically Signed: Johnny Neil MD at 9:02 EST , Service support , Chest X-Ray 05/03/18 09:37 IMPRESSION: Mild cardiomegaly. Electronically Signed: Johnny Neil MD at 10:05 EST , Service support , Medications Given Discontinued Medications Phytonadione 10 mg/ Sodium (Chloride) 51 mls @ 150 mls/hr IV X1 ONE Stop: 05/03/18 09:57 Morphine Sulfate () 4 mg IV X1 ONE Stop: 05/03/18 10:13 Ondansetron HCl (Zofran) 4 mg IV X1 ONE Stop: 05/03/18 10:13 Emergency Department Course and Treatment: INR was checked and is therapeutic at 2.6. Urinalysis showed no sign of infection but was consistent with hematuria. CBC showed no anemia. CT scan of the abdomen and pelvis was performed due to the abdominal exam, and it shows a large bladder mass. This was discussed with Dr. Kam, who reviewed the CT scan and thinks it may be prostate enlargement with a large blood clot. He will take the patient to surgery this afternoon. He requested Maldonado catheter replaced and the bladder be irrigated. Reversal of the INR was initiated with IV vitamin K and fresh frozen plasma. Patient did not take his Coumadin dose today. Patient initially had declined any pain medication, but on reevaluation he had increased pain in the penis and was given morphine and Zofran. Reevaluation showed a large blood clot at the urethral meatus. Preop EKG was performed and showed A. fib rate of 68 with a right bundle branch block and ST/T wave changes that are baseline for the patient when compared to an EKG from 2018. No acute ischemic changes noted on the EKG. Preop chest x-ray also performed. Patient was discussed with Dr. Phoenix and admitted for further management of his INR reversal, treatment of the urinary retention and hematuria, and he will go to surgery with Dr. Kam this afternoon. Treatment Plan: [] Disposition: [] Impression: Gross hematuria, acute urinary retention, concern for bladder mass versus hemorrhage This note was generated with Memriseation software. It may contain incorrect words, spelling, and punctuation that were not noted in review of the chart prior to signing ED Disposition - Plan for ED Patient:
[2018-05-03 08:01] LABS: Absolute Lymphocyte Count 1.16 X10^3/ul (0.83-4.51); Basophil# 0.07 X10^3/uL; Basophil% 1.1 % (0-1); Eosinophil# 0.36 X10^3/uL; Eosinophils% 5.6 % (0-5); Hematocrit 48.6 % (40-54); Hemoglobin 16.1 g/dl (13.0-16.5); Lymphocyte # 1.16 X10^3/ul (4.0); Lymphocyte % 18.1 % (19-41); Mean Corp Hgb Conc 33.1 g/gl (32-36); Mean Corpuscular Hgb 38.8 pg (27.0-32.0); Mean Corpuscular Volume 117.1 fL (80-94); Mean Platelet Vol. 10.9 fl (6.2-12.0); Monocyte# 0.81 X10^3/uL; Monocyte% 12.6 % (0-10); Neutrophil # 3.99 X10^3/uL (2.7-7.7); Neutrophil % 62.1 % (47-70); Platelet Count 166 K/mm3 (150-450); RBC Distribution Width CV 13.9 % (11.6-14.6); RBC Distribution Width SD 59.2 fl (35.1-43.9); Red Blood Count 4.15 M/mm3 (4.6-6.2); White Blood Count 6.4 K/mm3 (4.4-11.0)
[2018-05-03 08:05] LABS: POSITIVE COUNT NO; POSITIVE DIFFERENTIAL NO; POSITIVE MORPHOLOGY NO
[2018-05-03 08:06] LABS: BUN 22 mg/dL (7-18); Creatinine, Serum 0.99 mg/dL (0.70-1.30); Glucose 107 mg/dL (74-106)
[2018-05-03 08:07] LABS: Anion Gap 5 (5-15); BUN/Creat Ratio 22.2 RATIO (10-20); Calcium,Total 8.8 mg/dL (8.5-10.1); Chloride 105 mmol/L (98-107); EST Glomerular Filtration Rate 82 mL/min (>60); Est Glom Filt Rate - Afr Amer 99 mL/min (>60); Potassium 4.7 mmol/L (3.5-5.1); Sodium Level 137 mmol/L (136-145)
[2018-05-03 08:14] LABS: White Blood Cells 0 SEEN /hpf (0-5)
[2018-05-03 08:15] LABS: Bacteria 0 SEEN /hpf (None Seen); Mucous, Urine 0 SEEN /hpf (<or=2+); Squamous Epithelial Cells - UA 0 SEEN /hpf (0-5)
[2018-05-03 08:22] LABS: International Normalized Ratio 2.6; Partial Thromboplast Time 36.5 Seconds (24.1-36.2); Prothrombin Time (Protime)PT. 28.2 SECONDS (11.7-14.9)
[2018-05-03 08:27] LABS: Color, Urine Red (Yellow); Glucose, Dipstick Normal (Normal); Ketone-Dipstick Negative (Negative); Leukocyte Esterase-Dipstick Negative /ul (Negative); Nitrite-Dipstick Negative (Negative); Occult Blood-Urine 50 /ul (Negative); Protein-Dipstick 500 mg/dl (Negative); Specific Gravity, Urine 1.015 (1.002-1.030); Urine Clarity Turbid (Clear); Urine Urobilinogen Normal (Normal)
[2018-05-03 08:42] LABS: Urine Bilirubin Dipstick 6 mg/dL (Negative)
[2018-05-03 08:55] LABS: Red Blood Cells-Urine > 100 SEEN /hpf (0-5)
--- NOTE | 2018-05-03 09:37 | EKG12_ITS ---
Test Reason : PRE-OP Blood Pressure : / mmHG Vent. Rate : 068 BPM Atrial Rate : 059 BPM P-R Int : 000 ms QRS Dur : 138 ms QT Int : 442 ms P-R-T Axes : 000 -47 -79 degrees QTc Int : 469 ms Atrial fibrillation Right bundle branch block Left anterior fascicular block Bifascicular block T wave abnormality, consider inferolateral ischemia Abnormal ECG Confirmed by JARRELL WOODALL, HARRY ([id number]), editor trade journal MIKE VELASQUEZ ([id number]) on 05/07/2018 11:34:14 AM Referred By: HANG Confirmed By:HARRY VIEYRA MD
--- NOTE | 2018-05-03 09:37 | RAD_ITS ---
STUDY: X-RAY CHEST REASON FOR EXAM: Male, 62 years old. Chest pain. Preoperative evaluation. Bladder mass. TECHNIQUE: Single AP portable view of the chest. COMPARISON: None. FINDINGS: The lungs are clear and expanded. There is no demonstrated pleural abnormality. There is mild cardiac enlargement. Normal mediastinum and alec. Normal visualized pulmonary arteries. There is atherosclerotic calcification of the aortic arch with tortuosity. Normal visualized thoracic spine. There is degenerative osteoarthritis of the bilateral shoulders. There is no demonstrated abnormality of the visualized soft tissue structures of the upper abdomen. RAD/Chest 1 View (Portable) IMPRESSION: Mild cardiomegaly. Electronically Signed: Johnny Neil MD at 10:05 EST , Service support ,
[2018-05-03 12:02] LABS: Magnesium 2.3 mg/dL (1.6-2.6); Phosphorus 3.3 mg/dL (2.5-4.9)
[2018-05-03] MEDS: 0.9% Normal Saline 1,000 ML 75 ML IV (12:15)
[2018-05-03] MEDS: Carvedilol 25 MG Tablet PO ×2 (12:20→20:53)
[2018-05-03] MEDS: Lisinopril 5 MG Tablet PO (12:20)
[2018-05-03] MEDS: Docusate Sodium 100 MG Capsule PO (12:20)
[2018-05-03] MEDS: Furosemide 20 MG Tablet PO (12:20)
--- NOTE | 2018-05-03 12:34 | PCM.HP.STD ---
Problem List (1) Gross hematuria Status: Acute (2) Pulmonary hypertension Status: Chronic (3) Atherosclerotic heart disease of [place] coronary artery without angina pectoris Status: Chronic Comment: Mild 25-50% stenosis mid LAD (4) Severe left ventricular systolic dysfunction Status: Chronic Comment: 30% EF in August 2017 with moderate global right ventricular systolic dysfunction, severe left atrial enlargement, left atrial appendage thrombus, severely enlarged right atrium moderate aortic valve stenosis (5) Nonrheumatic aortic (valve) stenosis Status: Chronic Comment: Moderate (7) Hypertension Status: Chronic Qualifiers: (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 Comment: Managed by PCP, warfarin (9) Paroxysmal atrial fibrillation Status: Chronic (10) Overweight Status: Acute (11) MASOOD (obstructive sleep apnea) Status: Acute Comment: non-compliant with CPAP (12) Tobacco dependence Status: Chronic (13) Peripheral arterial disease Status: Suspected History of Present Illness Date of Admission: 05/03/18 Chief Complaint: Blood in the urine The patient is a 62 year old M with a past medical history of hypertension, dilated cardiomyopathy with a 30% ejection fraction, coronary artery disease, ongoing tobacco dependence, diverticulosis atrial fibrillation, chronic anticoagulation with warfarin, osteoarthritis, nonrheumatic moderate aortic stenosis, severe biatrial enlargement, history of thrombus in the left atrial appendage in August 2017 and moderate pulmonary hypertension who presented to the ED at [facility] on 05/03/2018 complaining of blood in the urine that began on 05/02/2018. He denied fevers/chills/dysuria. He has never had hematuria before. He is on Coumadin and is therapeutic with an INR of 2.6. He denies any history of kidney stones and he does not have flank pain. Vital signs of presentation to the emergency room were temperature 97.6, pulse rate 47, pressure 155/102, respiratory rate 16 and he is 95-99% saturated on room air. Lab shows a normal white blood cell count at 6.4 with 5.6% eosinophils. Hemoglobin is 16.1 with macrocytosis and platelets are within normal limits. The INR is therapeutic at 2.6. Electrolytes are unremarkable and the BUN is 22 with a creatinine of 0.39. LFTs are within normal limits. A CT scan of the abdomen and pelvis was reported as a large bladder mass causing a marked degree of bladder dilatation. There was a moderate degree of right hydronephrosis and right hydroureter with no ureteral obstruction seen. There was a 2.5 mm nonobstructive calculus in the upper pole of the left kidney. There is diverticulosis with no evidence of diverticulitis. Dr. Garcias spoke with Dr. Kam and the pt is going to be admitted to qa monitored bed on PCU and he plans surgery this afternoon. FFP and vitamin K were ordered by Dr. Garcias. Past Medical History Past Medical History (Chronic Problems): Chronic Problems (Last Reviewed 05/03/18 @ 12:53 by Bryan Phoenix DO) Tobacco dependence (Chronic) Pulmonary hypertension (Chronic) Atherosclerotic heart disease of [place] coronary artery without angina pectoris (Chronic) Mild 25-50% stenosis mid LAD Severe left ventricular systolic dysfunction (Chronic) 30% EF in August 2017 with moderate global right ventricular systolic dysfunction, severe left atrial enlargement, left atrial appendage thrombus, severely enlarged right atrium moderate aortic valve stenosis Nonrheumatic aortic (valve) stenosis (Chronic) 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 (Chronic) [facility] (current) use of anticoagulants (Chronic) Managed by PCP, warfarin Paroxysmal atrial fibrillation (Chronic) Medical History: Medical History (Last Updated 05/03/18 @ 12:54 by Bryan Phoenix DO) Pulmonary hypertension (Chronic) I27.20 Atherosclerotic heart disease of [place] coronary artery without angina pectoris (Chronic) I25.10 Mild 25-50% stenosis mid LAD Severe left ventricular systolic dysfunction (Chronic) I51.9 30% EF in August 2017 with moderate global right ventricular systolic dysfunction, severe left atrial enlargement, left atrial appendage thrombus, severely enlarged right atrium moderate aortic valve stenosis Nonrheumatic aortic (valve) stenosis (Chronic) I35.0 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 (Chronic) I10 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 (Chronic) Z79.01 Managed by PCP, warfarin Paroxysmal atrial fibrillation (Chronic) I48.0 MASOOD (obstructive sleep apnea) G47.33 Bilateral edema of lower extremity R60.0 Resolved Allergies No Known Allergies Allergy (Verified 05/03/18 07:02) Home Medications: Ambulatory Orders Medication Instructions Recorded Furosemide [Lasix] 20 mg PO DAILY 04/24/14 gabapentin 300 mg capsule 300 mg PO TID 06/11/17 magnesium oxide 400 mg capsule 400 mg PO QDAY cap 06/11/17 potassium chloride ER 10 mEq 10 meq PO QDAY cap 06/11/17 capsule,extended release warfarin 5 mg tablet 5 mg PO .COMPLEX 06/11/17 aspirin 81 mg tablet,delayed 81 mg PO QDAY 08/15/17 release atorvastatin 40 mg tablet 40 mg PO QDAY #30 tab 12/14/17 Carvedilol 25 mg PO BID 05/03/18 Lisinopril [Zestril] 5 mg PO QDAY 05/03/18 Nitrofurantoin Macrocrystal 100 mg PO BID 05/03/18 [Macrodantin] Surgical History: Surgical History (Last Reviewed 05/03/18 @ 12:55 by Bryan Phoenix DO) History of hernia repair Z98.890, Z87.19 History of laminectomy Z98.890 Surgical History: herniorrhaphy - LEft inguinal, - - He has a titanium jeremías in the right lower extremity distal to the knee. Psychiatric History: No pertinent psych hx Lives: Spouse/ Significant Other Smoking Status: Current every day smoker - States he smokes 5 cigarettes a day down from 1-1/2-2 packs daily Tobacco Use: Cigarettes Alcohol: Occasional Drugs: None - *Family History Maternal Family History: Family History (Last Reviewed 09/20/17 @ 11:46 by Faith Singh) Mother History of DVT (deep vein thrombosis) Father Atrial fibrillation Diabetes Sister History of DVT (deep vein thrombosis) Brother History of DVT (deep vein thrombosis) Sibling Family History: Family History (Last Reviewed 09/20/17 @ 11:46 by Faith Singh) Mother History of DVT (deep vein thrombosis) Father Atrial fibrillation Diabetes Sister History of DVT (deep vein thrombosis) Brother History of DVT (deep vein thrombosis) History Items: - - Both his brother and sister have a factor V deficiency Review of Systems Constitutional: Denies: Chills, Fever, Weight Change HEENT: Denies: Head Aches, Sinus Congestion, Sinus Drainage Cardiovascular: Denies: Chest Pain, Light Headedness, Palpitations Respiratory: Denies: Cough, Shortness of breath at rest, Sputum production Gastrointestinal: Denies: Abdominal Pain, Nausea, Vomiting Genitourinary: Reports: Hematuria. Denies: Dysuria, Nocturia Musculoskeletal: Reports: Joint Pain - Left hip-uses a wheeled walker to ambulate. Denies: Joint Tenderness Skin: Denies: Jaundice, Rash, Wounds Neurological: Denies: Focal weakness, Numbness, Tingling, Seizures Psychiatric: Denies: Anxiety, Depression, Homicidal Ideations, Suicidal Ideations Endocrine: Denies: Change in Body Habitus Hematologic/ Lymphatic: Denies: Easy Bruising, Easy Bleeding, Hx of blood clot VTE Information - Inpt Only VTE Present on Admission: No VTE Mechan Device Prophylaxis: SCD's, Knee High MEDHAT Hose VTE Pharm Prophylaxis ordered?: No Reason prophylaxis not ordered:: Treatment Not Indicated - he has gross hematuria and is going to surgery Patient Problems: Active and Suspected Problems (Last Reviewed 05/03/18 @ 12:53 by Bryan Phoenix DO) Gross hematuria (Acute) Overweight (Acute) MASOOD (obstructive sleep apnea) (Acute) non-compliant with CPAP Peripheral arterial disease (Suspected) - Physical Exam General: Alert, Oriented x3, Cooperative, No apparent distress, Well developed, Well nourished HEENT: Atraumatic, PERRLA, EOMI, Normocephalic Oral: Moist Mucosa, No Gingival or Mucosal Lesions/ Ulcerations Neck: Supple, No JVD, Negative Carotid Bruits, No Nodes, No Nuchal Rigidity, Trachea Midline Lungs: Clear to auscultation, Diminished Cardiovascular: Normal S1, Normal S2, Irregular Rate - Telemetry shows atrial fibrillation and so does the EKG, Murmur - He has a systolic ejection murmur at the second right intercostal space with radiation to the left ventricular outflow tract and the apex. He also has a systolic murmur in the left axillary area. No diastolic murmurs., No rub noted, No Gallop Abdomen: Bowel Sounds Present, Soft, Non Tender, Non-Distended Extremities: No clubbing, No cyanosis, No edema, Diminished Peripheral Pulses, - - femoral, DP, PT and the popliteal pulses are all very diminished. Skin: No breakdown, - - He has discoloration and stasis dermatitis of the distal RLE and less stasis dermatitis on the R LE distal to the knee Musculoskeletal: No Muscle Wasting Neurological: Cranial nerves II-XII grossly intact, Neuro grossly intact Psych/Mental Status: Normal Affect, Appropriate Vital Signs Temp Pulse Resp BP Pulse Ox 97.6 F L 83 16 147/73 H 97 05/03/18 11:52 05/03/18 11:52 05/03/18 11:52 05/03/18 11:52 05/03/18 11:52 Oxygen Delivery Method Room Air Weight: 220 lb 10.923 oz Body Mass Index (BMI) 29.9 Intake and Output for Last 24 Hours 05/01/18 05/02/18 05/03/18 23:59 23:59 23:59 Intake Total 0 / 0 Balance 0 / 0 Laboratory Tests Past 24 Hrs 05/03/18 05/03/18 05/03/18 07:40 07:40 07:40 WBC 6.4 RBC 4.15 L Hgb 16.1 Hct 48.6 MCV 117.1 H MCH 38.8 H MCHC 33.1 RDW 13.9 RDW Differential 59.2 H Plt Count 166 MPV 10.9 Immature Gran % (Auto) 0.500 Neut % (Auto) 62.1 Lymph % (Auto) 18.1 L Bowie % (Auto) 12.6 H Eos % (Auto) 5.6 H Baso % (Auto) 1.1 H Absolute Neuts (auto) 4.0 Absolute Lymphs (auto) 1.16 Total Counted Not Reportable PT 28.2 H INR 2.6 APTT 36.5 H Sodium 137 Potassium 4.7 Chloride 105 Carbon Dioxide 27.0 Anion Gap 5 BUN 22 H Creatinine 0.99 Estim Creat Clear Calc 86.00 Est GFR (MDRD) Af Amer 99 Est GFR (MDRD) Non-Af 82 BUN/Creatinine Ratio 22.2 H Glucose 107 H Calcium 8.8 Phosphorus Magnesium Total Bilirubin Direct Bilirubin AST ALT Alkaline Phosphatase Total Protein Albumin Vitamin B12 RBC Folate Hemolysate RBC Folate Hematocrit Urine Color Urine Clarity Urine pH Ur Specific [place] Urine Protein Urine Glucose (UA) Urine Ketones Urine Occult Blood Urine Nitrite Urine Bilirubin Urine Urobilinogen Ur Leukocyte Esterase Urine RBC Urine WBC Ur Squamous Epith Cells Urine Bacteria Urine Mucus Blood Type 05/03/18 05/03/18 05/03/18 07:40 07:40 11:15 WBC RBC Hgb Hct MCV MCH MCHC RDW RDW Differential Plt Count MPV Immature Gran % (Auto) Neut % (Auto) Lymph % (Auto) Bowie % (Auto) Eos % (Auto) Baso % (Auto) Absolute Neuts (auto) Absolute Lymphs (auto) Total Counted PT INR APTT Sodium Potassium Chloride Carbon Dioxide Anion Gap BUN Creatinine Estim Creat Clear Calc Est GFR (MDRD) Af Amer Est GFR (MDRD) Non-Af BUN/Creatinine Ratio Glucose Calcium Phosphorus Magnesium Total Bilirubin Pending Direct Bilirubin Pending AST Pending ALT Pending Alkaline Phosphatase Pending Total Protein Pending Albumin Pending Vitamin B12 RBC Folate Hemolysate RBC Folate Hematocrit Urine Color Red Urine Clarity Turbid Urine pH 8.0 Ur Specific [place] 1.015 Urine Protein 500 H Urine Glucose (UA) Normal Urine Ketones Negative Urine Occult Blood 50 H Urine Nitrite Negative Urine Bilirubin 6 H Urine Urobilinogen Normal Ur Leukocyte Esterase Negative Urine RBC > 100 SEEN Urine WBC 0 SEEN Ur Squamous Epith Cells 0 SEEN Urine Bacteria 0 SEEN Urine Mucus 0 SEEN Blood Type A POSITIVE 05/03/18 05/03/18 05/03/18 11:15 11:15 11:15 WBC RBC Hgb Hct MCV MCH MCHC RDW RDW Differential Plt Count MPV Immature Gran % (Auto) Neut % (Auto) Lymph % (Auto) Bowie % (Auto) Eos % (Auto) Baso % (Auto) Absolute Neuts (auto) Absolute Lymphs (auto) Total Counted PT Cancelled INR Cancelled APTT Sodium Potassium Chloride Carbon Dioxide Anion Gap BUN Creatinine Estim Creat Clear Calc Est GFR (MDRD) Af Amer Est GFR (MDRD) Non-Af BUN/Creatinine Ratio Glucose Calcium Phosphorus 3.3 Magnesium 2.3 Total Bilirubin Direct Bilirubin AST ALT Alkaline Phosphatase Total Protein Albumin Vitamin B12 Pending RBC Folate Hemolysate RBC Folate Hematocrit Urine Color Urine Clarity Urine pH Ur Specific [place] Urine Protein Urine Glucose (UA) Urine Ketones Urine Occult Blood Urine Nitrite Urine Bilirubin Urine Urobilinogen Ur Leukocyte Esterase Urine RBC Urine WBC Ur Squamous Epith Cells Urine Bacteria Urine Mucus Blood Type 05/03/18 11:15 WBC RBC Hgb Hct MCV MCH MCHC RDW RDW Differential Plt Count MPV Immature Gran % (Auto) Neut % (Auto) Lymph % (Auto) Bowie % (Auto) Eos % (Auto) Baso % (Auto) Absolute Neuts (auto) Absolute Lymphs (auto) Total Counted PT INR APTT Sodium Potassium Chloride Carbon Dioxide Anion Gap BUN Creatinine Estim Creat Clear Calc Est GFR (MDRD) Af Amer Est GFR (MDRD) Non-Af BUN/Creatinine Ratio Glucose Calcium Phosphorus Magnesium Total Bilirubin Direct Bilirubin AST ALT Alkaline Phosphatase Total Protein Albumin Vitamin B12 RBC Folate Hemolysate Pending RBC Folate Pending Hematocrit Pending Urine Color Urine Clarity Urine pH Ur Specific [place] Urine Protein Urine Glucose (UA) Urine Ketones Urine Occult Blood Urine Nitrite Urine Bilirubin Urine Urobilinogen Ur Leukocyte Esterase Urine RBC Urine WBC Ur Squamous Epith Cells Urine Bacteria Urine Mucus Blood Type Assessment/Plan All Active Problems (Last Reviewed 05/03/18 @ 12:53 by Bryan Phoenix DO) Gross hematuria (Acute) Overweight (Acute) MASOOD (obstructive sleep apnea) (Acute) Bilateral edema of lower extremity (Resolved) Impressions 1. Gross hematuria with right hydronephrosis and hydroureter and possible large bladder mass versus clot 2. Cardiomyopathy with a 25 to 30% ejection fraction 3. Coronary artery disease with [place] multivessel coronary artery disease on cardiac catheterization in August 2017 0. 4. Severe pulmonary hypertension 5. Severe biatrial enlargement with history of left atrial appendage thrombus in the past 6. Nonrheumatic aortic valve stenosis-moderate 7. Ongoing tobacco dependence 8. Suspected peripheral vascular disease 9. Chronic anticoagulation with warfarin 10. Family history of factor V deficiency in his siblings and he has never been tested so he may be hypercoagulable Admitted to a monitored bed on PCU N.p.o. for surgery this afternoon 10 mg of vitamin K intravenously-ordered by the emergency department physician Fresh frozen plasma [address] Kam to participate in management Q. 4-hour H&H Recheck lab in the a.m. Continue CBI I am very concerned about the FH of a factor 5 deficiency in his brother and sister and the hx of a Left atrial appendage thrombus and now we are reversing the anticoagulation - will need to restart as soon as safe and discuss with Dr. Kam Code Visit Inpatient E&M: [id number] Init Hosp L3
[2018-05-03 12:35] LABS: AST(SGOT) 28 U/L (15-37); Alanine Aminotransfer ALT/SGPT 30 U/L (16-61); Albumin, Serum 3.8 g/dL (3.2-5.0); Alkaline Phosphatase 61 U/L (45-117); Globulin 3.6 g/dL (2.2-4.2); Protein, Total 7.4 g/dL (6.4-8.2)
--- NOTE | 2018-05-03 12:39 | HP.PCM_ITS ---
Problem List (1) Gross hematuria Status: Acute (2) Pulmonary hypertension Status: Chronic (3) Atherosclerotic heart disease of [place] coronary artery without angina pectoris Status: Chronic Comment: Mild 25-50% stenosis mid LAD (4) Severe left ventricular systolic dysfunction Status: Chronic Comment: 30% EF in August 2017 with moderate global right ventr icular systolic dysfunction, severe left atrial enlargement, left atrial appendage thrombus, severely enlarged right atrium moderate aortic valve stenosis (5) Nonrheumatic aortic (valve) stenosis Status: Chronic Comment: Moderate (7) Hypertension Status: Chronic Qualifiers: (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: 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 Comment: Managed by PCP, warfarin (9) Paroxysmal atrial fibrillation Status: Chronic (10) Overweight Status: Acute (11) MASOOD (obstructive sleep apnea) Status: Acute Comment: non-compliant with CPAP (12) Tobacco dependence Status: Chronic (13) Peripheral arterial disease Status: Suspected History of Present Illness Date of Admission: 05/03/18 Chief Complaint: Blood in the urine The patient is a 62 year old M with a past medical history of hypertension, dilated cardiomyopathy with a 30% ejection fraction, coronary artery disease, ongoing tobacco dependence, diverticulosis atrial fibrillation, chronic anticoagulation with warfarin, osteoarthritis, nonrheumatic moderate aortic stenosis, severe biatrial enlargement, history of thrombus in the left atrial appendage in August 2017 and moderate pulmonary hypertension who presented to the ED at [facility] on 05/03/2018 complaining of blood in the urine that began on 05/02/2018. He denied fevers/chills/dysuria. He has never had hematuria before. He is on Coumadin and is therapeutic with an INR of 2.6. He denies any history of kidney stones and he does not have flank pain. Vital signs of presentation to the emergency room were temperature 97.6, pulse rate 47, pressure 155/102, respiratory rate 16 and he is 95-99% saturated on room air. Lab shows a normal white blood cell count at 6.4 with 5.6% eosinophils. Hemoglobin is 16.1 with macrocytosis and platelets are within normal limits. The INR is therapeutic at 2.6. Electrolytes are unremarkable and the BUN is 22 with a creatinine of 0.39. LFTs are within normal limits. A CT scan of the abdomen and pelvis was reported as a large bladder mass causing a marked degree of bladder dilatation. There was a moderate degree of right hydronephrosis and right hydroureter with no ureteral obstruction seen. There was a 2.5 mm nonobstructive calculus in the upper pole of the left kidney. There is diverticulosis with no evidence of diverticulitis. Dr. Garcias spoke with Dr. Kam and the pt is going to be admitted to qa monitored bed on PCU and he plans surgery this afternoon. FFP and vitamin K were ordered by Dr. Garcias. Past Medical History Past Medical History (Chronic Problems): Chronic Problems (Last Reviewed 05/03/18 @ 12:53 by Bryan Phoenix DO) Tobacco dependence (Chronic) Pulmonary hypertension (Chronic) Atherosclerotic heart disease of [place] coronary artery without angina pectoris (Chronic) Mild 25-50% stenosis mid LAD Severe left ventricular systolic dysfunction (Chronic) 30% EF in August 2017 with moderate global right ventricular systolic dysfunction, severe left atrial enlargement, left atrial appendage thrombus, severely enlarged right atrium moderate aortic valve stenosis Nonrheumatic aortic (valve) stenosis (Chronic) 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 (Chronic) intermediate (current) use of anticoagulants (Chronic) Managed by PCP, warfarin Paroxysmal atrial fibrillation (Chronic) Medical History: Medical History (Last Updated 05/03/18 @ 12:54 by Bryan Phoenix DO) Pulmonary hypertension (Chronic) I27.20 Atherosclerotic heart disease of [place] coronary artery without angina pectoris (Chronic) I25.10 Mild 25-50% stenosis mid LAD Severe left ventricular systolic dysfunction (Chronic) I51.9 30% EF in August 2017 with moderate global right ventricular systolic dysfunction, severe left atrial enlargement, left atrial appendage thrombus, severely enlarged right atrium moderate aortic valve stenosis Nonrheumatic aortic (valve) stenosis (Chronic) I35.0 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 (Chronic) I10 intermediate (current) use of anticoagulants (Chronic) Z79.01 Managed by PCP, warfarin Paroxysmal atrial fibrillation (Chronic) I48.0 MASOOD (obstructive sleep apnea) G47.33 Bilateral edema of lower extremity R60.0 Resolved Allergies No Known Allergies Allergy (Verified 05/03/18 07:02) Home Medications: Ambulatory Orders Medication Instructions Recorded Furosemide [Lasix] 20 mg PO DAILY 04/24/14 gabapentin 300 mg capsule 300 mg PO TID 06/11/17 magnesium oxide 400 mg capsule 400 mg PO QDAY cap 06/11/17 potassium chloride ER 10 mEq 10 meq PO QDAY cap 06/11/17 capsule,extended release warfarin 5 mg tablet 5 mg PO .COMPLEX 06/11/17 aspirin 81 mg tablet,delayed 81 mg PO QDAY 08/15/17 release atorvastatin 40 mg tablet 40 mg PO QDAY #30 tab 12/14/17 Carvedilol 25 mg PO BID 05/03/18 Lisinopril [Zestril] 5 mg PO QDAY 05/03/18 Nitrofurantoin Macrocrystal 100 mg PO BID 05/03/18 [Macrodantin] Surgical History: Surgical History (Last Reviewed 05/03/18 @ 12:55 by Bryan Phoenix DO) History of hernia repair Z98.890, Z87.19 History of laminectomy Z98.890 Surgical History: herniorrhaphy - LEft inguinal, - - He has a titanium jeremías in th e right lower extremity distal to the knee. Psychiatric History: No pertinent psych hx Lives: Spouse/ Significant Other Smoking Status: Current every day smoker - States he smokes 5 cigarettes a day down from 1-1/2-2 packs daily Tobacco Use: Cigarettes Alcohol: Occasional Drugs: None - *Family History Maternal Family History: Family History (Last Reviewed 09/20/17 @ 11:46 by Faith Singh) Mother History of DVT (deep vein thrombosis) Father Atrial fibrillation Diabetes Sister History of DVT (deep vein thrombosis) Brother History of DVT (deep vein thrombosis) Sibling Family History: Family History (Last Reviewed 09/20/17 @ 11:46 by Faith Singh) Mother History of DVT (deep vein thrombosis) Father Atrial fibrillation Diabetes Sister History of DVT (deep vein thrombosis) Brother History of DVT (deep vein thrombosis) History Items: - - Both his brother and sister have a factor V deficiency Review of Systems Constitutional: Denies: Chills, Fever, Weight Change HEENT: Denies: Head Aches, Sinus Congestion, Sinus Drainage Cardiovascular: Denies: Chest Pain, Light Headedness, Palpitations Respiratory: Denies: Cough, Shortness of breath at rest, Sputum production Gastrointestinal: Denies: Abdominal Pain, Nausea, Vomiting Genitourinary: Reports: Hematuria. Denies: Dysuria, Nocturia Musculoskeletal: Reports: Joint Pain - Left hip-uses a wheeled walker to ambulate. Denies: Joint Tenderness Skin: Denies: Jaundice, Rash, Wounds Neurological: Denies: Focal weakness, Numbness, Tingling, Seizures Psychiatric: Denies: Anxiety, Depression, Homicidal Ideations, Suicidal Ideations Endocrine: Denies: Change in Body Habitus Hematologic/ Lymphatic: Denies: Easy Bruising, Easy Bleeding, Hx of blood clot VTE Information - Inpt Only VTE Present on Admission: No VTE Mechan Device Prophylaxis: SCD's, Knee High MEDHAT Hose VTE Pharm Prophylaxis ordered?: No Reason prophylaxis not ordered:: Treatment Not Indicated - he has gross hematuria and is going to surgery Patient Problems: Active and Suspected Problems (Last Reviewed 05/03/18 @ 12:53 by Bryan Phoenix DO) Gross hematuria (Acute) Overweight (Acute) MASOOD (obstructive sleep apnea) (Acute) non-compliant with CPAP Peripheral arterial disease (Suspected) - Physical Exam General: Alert, Oriented x3, Cooperative, No apparent distress, Well developed, Well nourished HEENT: Atraumatic, PERRLA, EOMI, Normocephalic Oral: Moist Mucosa, No Gingival or Mucosal Lesions/ Ulcerations Neck: Supple, No JVD, Negative Carotid Bruits, No Nodes, No Nuchal Rigidity, Trachea Midline Lungs: Clear to auscultation, Diminished Cardiovascular: Normal S1, Normal S2, Irregular Rate - Telemetry shows atrial fibrillation and so does the EKG, Murmur - He has a systolic ejection murmur at the second right intercostal space with radiation to the left ventricular outflow tract and the apex. He also has a systolic murmur in the left axillary area. No diastolic murmurs., No rub noted, No Gallop Abdomen: Bowel Sounds Present, Soft, Non Tender, Non-Distended Extremities: No clubbing, No cyanosis, No edema, Diminished Peripheral Pulses, - - femoral, DP, PT and the popliteal pulses are all very diminished. Skin: No breakdown, - - He has discoloration and stasis dermatitis of the distal RLE and less stasis dermatitis on the R LE distal to the knee Musculoskeletal: No Muscle Wasting Neurological: Cranial nerves II-XII grossly intact, Neuro grossly intact Psych/Mental Status: Normal Affect, Appropriate Vital Signs Temp Pulse Resp BP Pulse Ox 97.6 F L 83 16 147/73 H 97 05/03/18 11:52 05/03/18 11:52 05/03/18 11:52 05/03/18 11:52 05/03/18 11:52 Oxygen Delivery Method Room Air Weight: 220 lb 10.923 oz Body Mass Index (BMI) 29.9 Intake and Output for Last 24 Hours 05/01/18 05/02/18 05/03/18 23:59 23:59 23:59 Intake Total 0 / 0 Balance 0 / 0 Laboratory Tests Past 24 Hrs 05/03/18 05/03/18 05/03/18 07:40 07:40 07:40 WBC 6.4 RBC 4.15 L Hgb 16.1 Hct 48.6 MCV 117.1 H MCH 38.8 H MCHC 33.1 RDW 13.9 RDW Differential 59.2 H Plt Count 166 MPV 10.9 Immature Gran % (Auto) 0.500 Neut % (Auto) 62.1 Lymph % (Auto) 18.1 L [place] % (Auto) 12.6 H Eos % (Auto) 5.6 H Baso % (Auto) 1.1 H Absolute Neuts (auto) 4.0 Absolute Lymphs (auto) 1.16 Total Counted Not Reportable PT 28.2 H INR 2.6 APTT 36.5 H Sodium 137 Potassium 4.7 Chloride 105 Carbon Dioxide 27.0 Anion Gap 5 BUN 22 H Creatinine 0.99 Estim Creat Clear Calc 86.00 Est GFR (MDRD) Af Amer 99 Est GFR (MDRD) Non-Af 82 BUN/Creatinine Ratio 22.2 H Glucose 107 H Calcium 8.8 Phosphorus Magnesium Total Bilirubin Direct Bilirubin AST ALT Alkaline Phosphatase Total Protein Albumin Vitamin B12 RBC Folate Hemolysate RBC Folate Hematocrit Urine Color Urine Clarity Urine pH Ur Specific [place] Urine Protein Urine Glucose (UA) Urine Ketones Urine Occult Blood Urine Nitrite Urine Bilirubin Urine Urobilinogen Ur Leukocyte Esterase Urine RBC Urine WBC Ur Squamous Epith Cells Urine Bacteria Urine Mucus Blood Type 05/03/18 05/03/18 05/03/18 07:40 07:40 11:15 WBC RBC Hgb Hct MCV MCH MCHC RDW RDW Differential Plt Count MPV Immature Gran % (Auto) Neut % (Auto) Lymph % (Auto) [place] % (Auto) Eos % (Auto) Baso % (Auto) Absolute Neuts (auto) Absolute Lymphs (auto) Total Counted PT INR APTT Sodium Potassium Chloride Carbon Dioxide Anion Gap BUN Creatinine Estim Creat Clear Calc Est GFR (MDRD) Af Amer Est GFR (MDRD) Non-Af BUN/Creatinine Ratio Glucose Calcium Phosphorus Magnesium Total Bilirubin Pending Direct Bilirubin Pending AST Pending ALT Pending Alkaline Phosphatase Pending Total Protein Pending Albumin Pending Vitamin B12 RBC Folate Hemolysate RBC Folate Hematocrit Urine Color Red Urine Clarity Turbid Urine pH 8.0 Ur Specific [place] 1.015 Urine Protein 500 H Urine Glucose (UA) Normal Urine Ketones Negative Urine Occult Blood 50 H Urine Nitrite Negative Urine Bilirubin 6 H Urine Urobilinogen Normal Ur Leukocyte Esterase Negative Urine RBC > 100 SEEN Urine WBC 0 SEEN Ur Squamous Epith Cells 0 SEEN Urine Bacteria 0 SEEN Urine Mucus 0 SEEN Blood Type A POSITIVE 05/03/18 05/03/18 05/03/18 11:15 11:15 11:15 WBC RBC Hgb Hct MCV MCH MCHC RDW RDW Differential Plt Count MPV Immature Gran % (Auto) Neut % (Auto) Lymph % (Auto) [place] % (Auto) Eos % (Auto) Baso % (Auto) Absolute Neuts (auto) Absolute Lymphs (auto) Total Counted PT Cancelled INR Cancelled APTT Sodium Potassium Chloride Carbon Dioxide Anion Gap BUN Creatinine Estim Creat Clear Calc Est GFR (MDRD) Af Amer Est GFR (MDRD) Non-Af BUN/Creatinine Ratio Glucose Calcium Phosphorus 3.3 Magnesium 2.3 Total Bilirubin Direct Bilirubin AST ALT Alkaline Phosphatase Total Protein Albumin Vitamin B12 Pending RBC Folate Hemolysate RBC Folate Hematocrit Urine Color Urine Clarity Urine pH Ur Specific [place] Urine Protein Urine Glucose (UA) Urine Ketones Urine Occult Blood Urine Nitrite Urine Bilirubin Urine Urobilinogen Ur Leukocyte Esterase Urine RBC Urine WBC Ur Squamous Epith Cells Urine Bacteria Urine Mucus Blood Type 05/03/18 11:15 WBC RBC Hgb Hct MCV MCH MCHC RDW RDW Differential Plt Count MPV Immature Gran % (Auto) Neut % (Auto) Lymph % (Auto) [place] % (Auto) Eos % (Auto) Baso % (Auto) Absolute Neuts (auto) Absolute Lymphs (auto) Total Counted PT INR APTT Sodium Potassium Chloride Carbon Dioxide Anion Gap BUN Creatinine Estim Creat Clear Calc Est GFR (MDRD) Af Amer Est GFR (MDRD) Non-Af BUN/Creatinine Ratio Glucose Calcium Phosphorus Magnesium Total Bilirubin Direct Bilirubin AST ALT Alkaline Phosphatase Total Protein Albumin Vitamin B12 RBC Folate Hemolysate Pending RBC Folate Pending Hematocrit Pending Urine Color Urine Clarity Urine pH Ur Specific [place] Urine Protein Urine Glucose (UA) Urine Ketones Urine Occult Blood Urine Nitrite Urine Bilirubin Urine Urobilinogen Ur Leukocyte Esterase Urine RBC Urine WBC Ur Squamous Epith Cells Urine Bacteria Urine Mucus Blood Type Assessment/Plan All Active Problems (Last Reviewed 05/03/18 @ 12:53 by Bryan Phoenix DO) Gross hematuria (Acute) Overweight (Acute) MASOOD (obstructive sleep apnea) (Acute) Bilateral edema of lower extremity (Resolved) Impressions 1. Gross hematuria with right hydronephrosis and hydroureter and possible large bladder mass versus clot 2. Cardiomyopathy with a 25 to 30% ejection fraction 3. Coronary artery disease with [place] multivessel coronary artery disease on cardiac catheterization in August 2017 0. 4. Severe pulmonary hypertension 5. Severe biatrial enlargement with history of left atrial appendage thrombus in the past 6. Nonrheumatic aortic valve stenosis-moderate 7. Ongoing tobacco dependence 8. Suspected peripheral vascular disease 9. Chronic anticoagulation with warfarin 10. Family history of factor V deficiency in his siblings and he has never been tested so he may be hypercoagulable Admitted to a monitored bed on PCU N.p.o. for surgery this afternoon 10 mg of vitamin K intravenously-ordered by the emergency department physician Fresh frozen plasma [address] Kam to participate in management Q. 4-hour H&H Recheck lab in the a.m. Continue CBI I am very concerned about the FH of a factor 5 deficiency in his brother and sister and the hx of a Left atrial appendage thrombus and now we are reversing the anticoagulation - will need to restart as soon as safe and discuss with Dr. Kam Code Visit Inpatient E&M: [id number] Init Hosp L3
[2018-05-03 12:47] LABS: Vitamin B12 356 pg/mL (211-911)
[2018-05-03 17:12] LABS: Hematocrit 43.2 % (40-54); Hemoglobin 14.4 g/dl (13.0-16.5)
--- NOTE | 2018-05-03 17:20 | CON.PCM_ITS ---
Reason for Consult Date of Consultation: 05/03/18 Reason for Consultation: Gross hematuria History of Present Illness: The patient is a 62 year old male with a history of enlarged prostate presents to the hospital with gross hematuria is also on Coumadin Coumadin is being reversed with FFP and vitamin K he still has gross bloody urine a catheter in place and draining at this point CAT scan was done really just shows a lot of blood clots in the bladder really no clear source of what it could be. I spoke to the patient regarding the possible etiologies of the hematuria from prostatic bleeding bladder cancer prostate cancer all this was reviewed the patient is agreeable with proceeding today for diagnostic cystoscopy evacuation of blood clots possible cauterization of bleeding. 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) Mild 25-50% stenosis mid LAD Severe left ventricular systolic dysfunction (Chronic) 30% EF in August 2017 with moderate global right ventricular systolic dysfunction, severe left atrial enlargement, left atrial appendage thrombus, severely enlarged right atrium moderate aortic valve stenosis Nonrheumatic aortic (valve) stenosis (Chronic) 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 (Chronic) [facility] (current) use of anticoagulants (Chronic) Managed by PCP, warfarin Paroxysmal atrial fibrillation (Chronic) Medical History: Medical History (Last Reviewed 05/03/18 @ 17:19 by Cash Kam MD) Pulmonary hypertension (Chronic) I27.20 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) I25.10 Mild 25-50% stenosis mid LAD Severe left ventricular systolic dysfunction (Chronic) I51.9 30% EF in August 2017 with moderate global right ventricular systolic dysfunction, severe left atrial enlargement, left atrial appendage thrombus, severely enlarged right atrium moderate aortic valve stenosis Nonrheumatic aortic (valve) stenosis (Chronic) I35.0 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 (Chronic) I10 [facility] (current) use of anticoagulants (Chronic) Z79.01 Managed by PCP, warfarin Paroxysmal atrial fibrillation (Chronic) I48.0 MASOOD (obstructive sleep apnea) G47.33 Bilateral edema of lower extremity R60.0 Resolved Allergies No Known Allergies Allergy (Verified 05/03/18 07:02) Home Medications: Ambulatory Orders Medication Instructions Recorded Furosemide [Lasix] 20 mg PO DAILY 04/24/14 gabapentin 300 mg capsule 300 mg PO TID 06/11/17 magnesium oxide 400 mg capsule 400 mg PO QDAY cap 06/11/17 potassium chloride ER 10 mEq 10 meq PO QDAY cap 06/11/17 capsule,extended release warfarin 5 mg tablet 5 mg PO .COMPLEX 06/11/17 aspirin 81 mg tablet,delayed 81 mg PO QDAY 08/15/17 release atorvastatin 40 mg tablet 40 mg PO QDAY #30 tab 12/14/17 Carvedilol 25 mg PO BID 05/03/18 Lisinopril [Zestril] 5 mg PO QDAY 05/03/18 Nitrofurantoin Macrocrystal 100 mg PO BID 05/03/18 [Macrodantin] Surgical History: Surgical History (Last Reviewed 05/03/18 @ 17:19 by Cash Kam MD) History of hernia repair Z98.890, Z87.19 History of laminectomy Z98.890 Surgical History: herniorrhaphy - LEft inguinal, - - He has a titanium jeremías in the right lower extremity distal to the knee. Psychiatric History: No pertinent psych hx Lives: Spouse/ Significant Other Smoking Status: Current every day smoker - States he smokes 5 cigarettes a day down from 1-1/2-2 packs daily Tobacco Use: Cigarettes Alcohol: Occasional Drugs: None - *Family History Maternal Family History: Family History (Last Reviewed 09/20/17 @ 11:46 by Faith Singh) Mother History of DVT (deep vein thrombosis) Father Atrial fibrillation Diabetes Sister History of DVT (deep vein thrombosis) Brother History of DVT (deep vein thrombosis) Sibling Family History: Family History (Last Reviewed 09/20/17 @ 11:46 by Faith Singh) Mother History of DVT (deep vein thrombosis) Father Atrial fibrillation Diabetes Sister History of DVT (deep vein thrombosis) Brother History of DVT (deep vein thrombosis) History Items: - - Both his brother and sister have a factor V deficiency Review of Systems Constitutional: Denies: Chills, Fever, Weight Change HEENT: Denies: Head Aches, Sinus Congestion, Sinus Drainage Cardiovascular: Denies: Chest Pain, Palpitations Respiratory: Denies: Cough, Shortness of breath at rest, Sputum production Gastrointestinal: Denies: Abdominal Pain, Nausea, Vomiting Genitourinary: Denies: Dysuria Musculoskeletal: Denies: Joint Pain, Joint Tenderness Skin: Denies: Rash, Wounds Neurological: Denies: Numbness, Tingling, Focal weakness Psychiatric: Denies: Anxiety, Depression, Homicidal Ideations, Suicidal Ideations Hematologic/ Lymphatic: Denies: Easy Bruising, Easy Bleeding Physical Exam - Physical Exam Vital Signs Temp 97.7 F L 05/03/18 16:35 Pulse 89 05/03/18 16:35 Resp 16 05/03/18 16:35 BP 110/58 L 05/03/18 16:35 Pulse Ox 16 05/03/18 16:35 Intake & Output 05/01/18 05/02/18 05/03/18 23:59 23:59 23:59 Intake Total 640 / 640 Output Total 2850 / 2850 Balance -2210 / -2210 Weight: 100.1 kg Intake: IV fluid/meds 240 / 240 Blood Product 400 / 400 Frozen Plasma, Single Donor 200 / 200 Unit [id number] Frozen Plasma, Single Donor 200 / 200 Unit [id number] Output: Urine 2850 / 2850 General: Alert, Oriented x3 HEENT: Atraumatic Oral: Moist Mucosa Neck: Supple Lungs: Normal air movement Cardiovascular: Regular rate Abdomen: Soft Laboratory Tests Past 24 Hrs 05/03/18 05/03/18 05/03/18 07:40 07:40 07:40 WBC 6.4 RBC 4.15 L Hgb 16.1 Hct 48.6 MCV 117.1 H MCH 38.8 H MCHC 33.1 RDW 13.9 RDW Differential 59.2 H Plt Count 166 MPV 10.9 Immature Gran % (Auto) 0.500 Neut % (Auto) 62.1 Lymph % (Auto) 18.1 L Dillon % (Auto) 12.6 H Eos % (Auto) 5.6 H Baso % (Auto) 1.1 H Absolute Neuts (auto) 4.0 Absolute Lymphs (auto) 1.16 Total Counted Not Reportable PT 28.2 H INR 2.6 APTT 36.5 H Sodium 137 Potassium 4.7 Chloride 105 Carbon Dioxide 27.0 Anion Gap 5 BUN 22 H Creatinine 0.99 Estim Creat Clear Calc 86.00 Est GFR (MDRD) Af Amer 99 Est GFR (MDRD) Non-Af 82 BUN/Creatinine Ratio 22.2 H Glucose 107 H Calcium 8.8 Phosphorus Magnesium Total Bilirubin Direct Bilirubin AST ALT Alkaline Phosphatase Total Protein Albumin Globulin Vitamin B12 RBC Folate Hemolysate RBC Folate Hematocrit Urine Color Urine Clarity Urine pH Ur Specific [place] Urine Protein Urine Glucose (UA) Urine Ketones Urine Occult Blood Urine Nitrite Urine Bilirubin Urine Urobilinogen Ur Leukocyte Esterase Urine RBC Urine WBC Ur Squamous Epith Cells Urine Bacteria Urine Mucus Blood Type 05/03/18 05/03/18 05/03/18 07:40 07:40 11:15 WBC RBC Hgb Hct MCV MCH MCHC RDW RDW Differential Plt Count MPV Immature Gran % (Auto) Neut % (Auto) Lymph % (Auto) Dillon % (Auto) Eos % (Auto) Baso % (Auto) Absolute Neuts (auto) Absolute Lymphs (auto) Total Counted PT INR APTT Sodium Potassium Chloride Carbon Dioxide Anion Gap BUN Creatinine Estim Creat Clear Calc Est GFR (MDRD) Af Amer Est GFR (MDRD) Non-Af BUN/Creatinine Ratio Glucose Calcium Phosphorus Magnesium Total Bilirubin 0.90 Direct Bilirubin 0.30 AST 28 ALT 30 Alkaline Phosphatase 61 Total Protein 7.4 Albumin 3.8 Globulin 3.6 Vitamin B12 RBC Folate Hemolysate RBC Folate Hematocrit Urine Color Red Urine Clarity Turbid Urine pH 8.0 Ur Specific [place] 1.015 Urine Protein 500 H Urine Glucose (UA) Normal Urine Ketones Negative Urine Occult Blood 50 H Urine Nitrite Negative Urine Bilirubin 6 H Urine Urobilinogen Normal Ur Leukocyte Esterase Negative Urine RBC > 100 SEEN Urine WBC 0 SEEN Ur Squamous Epith Cells 0 SEEN Urine Bacteria 0 SEEN Urine Mucus 0 SEEN Blood Type A POSITIVE 05/03/18 05/03/18 05/03/18 11:15 11:15 11:15 WBC RBC Hgb Hct MCV MCH MCHC RDW RDW Differential Plt Count MPV Immature Gran % (Auto) Neut % (Auto) Lymph % (Auto) Dillon % (Auto) Eos % (Auto) Baso % (Auto) Absolute Neuts (auto) Absolute Lymphs (auto) Total Counted PT Cancelled INR Cancelled APTT Sodium Potassium Chloride Carbon Dioxide Anion Gap BUN Creatinine Estim Creat Clear Calc Est GFR (MDRD) Af Amer Est GFR (MDRD) Non-Af BUN/Creatinine Ratio Glucose Calcium Phosphorus 3.3 Magnesium 2.3 Total Bilirubin Direct Bilirubin AST ALT Alkaline Phosphatase Total Protein Albumin Globulin Vitamin B12 356 RBC Folate Hemolysate RBC Folate Hematocrit Urine Color Urine Clarity Urine pH Ur Specific [place] Urine Protein Urine Glucose (UA) Urine Ketones Urine Occult Blood Urine Nitrite Urine Bilirubin Urine Urobilinogen Ur Leukocyte Esterase Urine RBC Urine WBC Ur Squamous Epith Cells Urine Bacteria Urine Mucus Blood Type 05/03/18 05/03/18 05/03/18 11:15 17:00 17:00 WBC RBC Hgb Pending Hct Pending MCV MCH MCHC RDW RDW Differential Plt Count MPV Immature Gran % (Auto) Neut % (Auto) Lymph % (Auto) Dillon % (Auto) Eos % (Auto) Baso % (Auto) Absolute Neuts (auto) Absolute Lymphs (auto) Total Counted PT Pending INR Pending APTT Sodium Potassium Chloride Carbon Dioxide Anion Gap BUN Creatinine Estim Creat Clear Calc Est GFR (MDRD) Af Amer Est GFR (MDRD) Non-Af BUN/Creatinine Ratio Glucose Calcium Phosphorus Magnesium Total Bilirubin Direct Bilirubin AST ALT Alkaline Phosphatase Total Protein Albumin Globulin Vitamin B12 RBC Folate Hemolysate Pending RBC Folate Pending Hematocrit Pending Urine Color Urine Clarity Urine pH Ur Specific [place] Urine Protein Urine Glucose (UA) Urine Ketones Urine Occult Blood Urine Nitrite Urine Bilirubin Urine Urobilinogen Ur Leukocyte Esterase Urine RBC Urine WBC Ur Squamous Epith Cells Urine Bacteria Urine Mucus Blood Type Assessment/Plan All Active Problems (Last Updated 05/03/18 @ 12:54 by Bryan Phoenix DO) Gross hematuria (Acute) Overweight (Acute) MASOOD (obstructive sleep apnea) (Acute) 63-year-old male presents to hospital with gross hematuria elevated INR CAT scan with no definitive diagnosis but large blood clots possible mass in the bladder plan for cystoscopy evacuation of blood clots may be biopsy or resection of any masses with bladder we may proceed with surgery today and his INR is being reversed. He is on continuous bladder irrigation.
[2018-05-03 17:28] LABS: International Normalized Ratio 1.5; Prothrombin Time (Protime)PT. 18.2 SECONDS (11.7-14.9)
--- NOTE | 2018-05-03 19:43 | OP.PCM_ITS ---
Report of Operation Date of Procedure: 05/03/18 Pre-Operative Diagnosis: Gross hematuria Post-Operative Diagnosis: Same, bladder stone and suspected colovesical fistula Surgery/Procedure Performed:: Cystoscopy evacuation of blood clots, laser of a very large bladder stone, evacuation of bladder stone fragments, cystolitholapaxy. Description of Surgical Findings:: Discussed patient family the last year 62-year-old male [facility] with gross hematuria elevated INR from Coumadin this was reversed with vitamin K and fresh frozen plasma. Took the patient to surgery today for evacuation of the blood clots to evaluate the source of the bleeding. 62-year-old male taken back to the operating room after smooth induction of anesthesia he was placed supine on the table in the dorsolithotomy position penis and testicles are prepped and draped in usual sterile fashion, went into the bladder with a 21 Peruvian rigid cystourethroscope initially and clot encountered a significant amount of old blood clots in the bladder these were manually irrigated out of the bladder and after evacuate all the blood clots out that I encountered a stone the stone was then laser little tiny pieces got all the pieces of the bladder but as the following 1 of the pieces it went up towards the dome of the bladder and the dome I noticed a fistula that was going straight into what appeared to be the inside of the bowel when I went into this area with the scope immediately the patient passed flatus. I tried to look at the area with the flexible scope was divided with the flexible scope into it looked back again one more time into the fistula area and again when the scope went into the fistula the patient was immediately passed flatus. At this point I was convinced that he most likely has a large colovesical fistula probably formed a stone around a fragment that came from the colon. I then placed a 20 Peruvian catheter into the bladder will have the nurses manually irrigated for clots. And again consult general surgery will order a CT scan with with rectal contrast in the morning. Type of Anesthesia:: General Estimated Blood Loss (mL): none, old - Admit VTE Documentation VTE Present on Admission: No VTE Mechan Device Prophylaxis: SCD's
--- NOTE | 2018-05-03 20:22 | NURSING ---
spoke with Patience HEEL STAINER and got report on this patient. okay to send to floor.
--- NOTE | 2018-05-03 20:30 | NURSING ---
Addendum entered by Vaishali Avalos 05/04/18 00:21: Marti's cell: [phone] Original Note: called Marti, sister, and gave her and update on patient's surgery and Eddy's note and POC.
[2018-05-03] MEDS: Magnesium Oxide 400 MG Tablet PO (20:53)
[2018-05-03] MEDS: Atorvastatin Calcium 40 MG Tablet PO (20:54)
[2018-05-03] MEDS: Gabapentin 300 MG Capsule PO (20:55)
[2018-05-03 21:36] LABS: Hematocrit 43.3 % (40-54); Hemoglobin 13.7 g/dl (13.0-16.5)
[2018-05-04] VITALS (12 sets, daily range): BP systolic 97–106; BP diastolic 46–58; PULSE 63–87; RESP 14–18; TEMP 36.6–37.2; O2SAT 97–100
[2018-05-04] MEDS: Gabapentin 300 MG Capsule PO ×3 (05:51→20:56)
[2018-05-04] MEDS: 0.9% Normal Saline 1,000 ML 75 ML IV ×2 (05:51→20:56)
--- NOTE | 2018-05-04 06:51 | PCM.PN.BLA ---
Progress Note 62-year-old male admitted for gross hematuria was found to have a stone in his bladder and then further inspection was found to have a fistula to what appeared to be the colon CT scan with rectal contrast was done this morning appears suspicious for colovesical fistula general surgery has been consulted for an evaluation. Nurses can continue with irrigating the catheter as needed for any blood clots that should clear up on its own with some time.
--- NOTE | 2018-05-04 07:00 | CT_ITS ---
STUDY: CT ABDOMEN AND PELVIS WITHOUT CONTRAST REASON FOR EXAM: Male, 62 years old. Colovesical fistula RADIATION DOSAGE (If Supplied By Facility): CTDIvol = ( 14.42 ) mGy, DLP = ( 810.75 ) mGycm TECHNIQUE: Transaxial images were obtained from the dome of the diaphragm to the symphysis pubis with rectal contrast, and without intravenous contrast. Sagittal and coronal images were reconstructed. Individualized dose optimization techniques were used for this CT. COMPARISON: May 03, 2018. FINDINGS: Evaluation limited by the lack of IV contrast. Atelectasis/scarring within the lungs. Right lower lobe granuloma. Coronary artery calcifications. Normal unenhanced liver. Normal unenhanced gallbladder and extrahepatic biliary system. There are multiple benign calcified granulomata of the spleen. Normal unenhanced pancreas. Normal unenhanced bilateral adrenal glands. Nonspecific perinephric fatty stranding. Again noted bilateral nephrolithiasis measuring up to 4 mm on the right and 3 mm on the left. Compared to prior study there is significant decrease in the right hydronephrosis. No ureteral stones identified. Normal visualized stomach. Normal small intestine. There are multiple colonic diverticula consistent with diverticulosis. The appendix is visualized and appears normal. There is diffuse atherosclerotic calcification of the abdominal aorta, with a 3 cm infrarenal abdominal aortic aneurysm. Cannot evaluate for dissection due to lack of IV contrast. Normal retroperitoneum. There is been placement of a Maldonado catheter with the balloon in the bladder. There is gas seen within the nondependent portion of bladder. There is a noted masslike structure within the bladder possibly representing a hematoma. This is decrease in size compared to prior study. There is some hyperdense material within the bladder. No precontrast injection study was performed. Segment of the sigmoid colon is intimately associated with the urinary bladder. There is a moderate-sized umbilical hernia containing fat. Small right inguinal hernia containing fat. Small bilateral inguinal lymph nodes. There are diffuse degenerative changes of the visualized lumbar spine. 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 CT/Abdomen/Pelvis without Cont IMPRESSION: Evaluation was performed to evaluate for a colovesical fistula. Please note that a study prior to injection of rectal contrast was not performed. This somewhat limits evaluation. There is hyperdense material in the bladder at time of prior study May 03, 2018 which most likely represented a hematoma. On today's examination again noted is gas as well as hyperdense material within the bladder. There is intimate association with a segment of the sigmoid colon with the urinary bladder. There is a small focus of gas within the bladder at this region. Findings would be concerning for a colovesical fistula. Correlate with urinalysis. Interval placement of a Maldonado catheter. The previously noted bladder hyperdense masslike lesion has significantly decreased in size. Likely representing a large hematoma. Recommend follow-up to ensure resolution. Diverticulosis is present. There is some thickening of the sigmoid colon with some stranding concerning for diverticulitis. Infrarenal abdominal aortic aneurysm. Decreasing right hydronephrosis. Evidence of prior granulomatous disease. Bilateral nephrolithiasis. Electronically Signed: Dawood Morrison, at 7:57 EST Tel , Service support ,
[2018-05-04 07:08] LABS: Thyroid Stim Hormone (TSH) 0.58 uIU/mL (0.358-3.74)
[2018-05-04] MEDS: Carvedilol 25 MG Tablet PO ×2 (08:28→17:07)
[2018-05-04] MEDS: Furosemide 20 MG Tablet PO (08:29)
[2018-05-04] MEDS: Lisinopril 5 MG Tablet PO (08:29)
[2018-05-04] MEDS: Magnesium Oxide 400 MG Tablet PO (08:29)
--- NOTE | 2018-05-04 08:36 | PCM.CONS.GEN ---
Problem List (1) Colovesical fistula Status: Acute Reason for Consult Date of Consultation: 05/04/18 History of Present Illness: The patient is a 62 year old M who presented to [facility] with gross hematuria. He was on Coumadin he was subsequently reversed with FFP and vitamin K and subsequently taken to surgery by Dr. Fry and underwent a cystoscopy. Patient was noted to have a bladder stone. And on inspection Dr. Ifeoma aviles identified a colovesical fistula. Dr. Dia I did not think that this was a malignancy from the bladder. A CAT scan of the pelvis with rectal contrast confirmed a colovesical fistula with contrast entering the bladder. There was no obvious signs of a malignancy. Patient states that he had a colonoscopy done in [facility] better than 6 years ago and there was no identification of malignancy at that time but he was told that he had a mild case of diverticulitis. Patient does not have a history of recurrent or repeated diverticulitis. Patient has a significant coronary history with an ejection fraction of less than 30% as well as chronic atrial fibrillation. 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 Past Medical History Past Medical History (Chronic Problems): Chronic Problems (Last Reviewed 05/03/18 @ 17:19 by Cash Kam MD) Tobacco dependence (Chronic) Pulmonary hypertension (Chronic) Atherosclerotic heart disease of [place] coronary artery without angina pectoris (Chronic) Mild 25-50% stenosis mid LAD Severe left ventricular systolic dysfunction (Chronic) 30% EF in August 2017 with moderate global right ventricular systolic dysfunction, severe left atrial enlargement, left atrial appendage thrombus, severely enlarged right atrium moderate aortic valve stenosis Nonrheumatic aortic (valve) stenosis (Chronic) 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 (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) Managed by PCP, warfarin Paroxysmal atrial fibrillation (Chronic) Medical History: Medical History (Last Reviewed 05/04/18 @ 08:39 by Prasanth Pradhan MD) Pulmonary hypertension (Chronic) I27.20 Atherosclerotic heart disease of [place] coronary artery without angina pectoris (Chronic) I25.10 Mild 25-50% stenosis mid LAD Severe left ventricular systolic dysfunction (Chronic) I51.9 30% EF in August 2017 with moderate global right ventricular systolic dysfunction, severe left atrial enlargement, left atrial appendage thrombus, severely enlarged right atrium moderate aortic valve stenosis Nonrheumatic aortic (valve) stenosis (Chronic) I35.0 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 (Chronic) I10 retirement (current) use of anticoagulants (Chronic) Z79.01 Managed by PCP, warfarin Paroxysmal atrial fibrillation (Chronic) I48.0 MASOOD (obstructive sleep apnea) G47.33 Bilateral edema of lower extremity R60.0 Resolved Allergies No Known Allergies Allergy (Verified 05/03/18 07:02) Home Medications: Ambulatory Orders Medication Instructions Recorded Furosemide [Lasix] 20 mg PO DAILY 04/24/14 gabapentin 300 mg capsule 300 mg PO TID 06/11/17 magnesium oxide 400 mg capsule 400 mg PO QDAY cap 06/11/17 potassium chloride ER 10 mEq 10 meq PO QDAY cap 06/11/17 capsule,extended release warfarin 5 mg tablet 5 mg PO .COMPLEX 06/11/17 aspirin 81 mg tablet,delayed 81 mg PO QDAY 08/15/17 release atorvastatin 40 mg tablet 40 mg PO QDAY #30 tab 12/14/17 Carvedilol 25 mg PO BID 05/03/18 Lisinopril [Zestril] 5 mg PO QDAY 05/03/18 Nitrofurantoin Macrocrystal 100 mg PO BID 05/03/18 [Macrodantin] Surgical History: Surgical History (Last Reviewed 05/04/18 @ 08:39 by Prasanth Pradhan MD) History of hernia repair Z98.890, Z87.19 History of laminectomy Z98.890 Surgical History: herniorrhaphy - LEft inguinal, - - He has a titanium jeremías in the right lower extremity distal to the knee. Psychiatric History: No pertinent psych hx Lives: Spouse/ Significant Other Smoking Status: Current every day smoker Tobacco Use: Cigarettes Alcohol: Occasional Drugs: None - *Family History Maternal Family History: Family History (Last Reviewed 09/20/17 @ 11:46 by Faith Singh) Mother History of DVT (deep vein thrombosis) Father Atrial fibrillation Diabetes Sister History of DVT (deep vein thrombosis) Brother History of DVT (deep vein thrombosis) Sibling Family History: Family History (Last Reviewed 09/20/17 @ 11:46 by Faith Singh) Mother History of DVT (deep vein thrombosis) Father Atrial fibrillation Diabetes Sister History of DVT (deep vein thrombosis) Brother History of DVT (deep vein thrombosis) History Items: - - Both his brother and sister have a factor V deficiency Review of Systems Constitutional: Denies: Chills, Fever, Weight Change Cardiovascular: Denies: Chest Pain, Chest Pressure, Chest Tightness, Palpitations Respiratory: Denies: Cough, Hemoptysis, Shortness of breath at rest, Shortness of breath upon exertion, Wheezing Gastrointestinal: Denies: Abdominal Pain, Constipation, Diarrhea, Hematemesis, Nausea, Melena, Vomiting Genitourinary: Reports: Hematuria Patient Problems: Active and Suspected Problems (Last Reviewed 05/03/18 @ 17:19 by Cash Kam MD) Gross hematuria (Acute) Overweight (Acute) MASOOD (obstructive sleep apnea) (Acute) non-compliant with CPAP Peripheral arterial disease (Suspected) Colovesical fistula (Acute) - Physical Exam General: Alert, Oriented x3 Lungs: Clear to auscultation Cardiovascular: Regular rate, Regular Rhythm, No murmurs Abdomen: Bowel Sounds Present, Soft, Non Tender, Non-Distended Vital Signs Temp Pulse Resp BP Pulse Ox 98.1 F 76 14 106/54 L 97 05/04/18 08:31 05/04/18 08:31 05/04/18 08:31 05/04/18 08:31 05/04/18 08:31 Oxygen Delivery Method Room Air Weight: 220 lb 10.923 oz Body Mass Index (BMI) 29.9 Intake and Output for Last 24 Hours 05/02/18 05/03/18 05/04/18 23:59 23:59 23:59 Intake Total 2136 / 2136 550 / 550 Output Total 3200 / 3200 400 / 400 Balance -1064 / -1064 150 / 150 Laboratory Tests Past 24 Hrs 05/03/18 05/03/18 05/03/18 07:40 07:40 11:15 Hgb Hct PT INR Phosphorus Magnesium Total Bilirubin 0.90 Direct Bilirubin 0.30 AST 28 ALT 30 Alkaline Phosphatase 61 Total Protein 7.4 Albumin 3.8 Globulin 3.6 Vitamin B12 RBC Folate Hemolysate RBC Folate Hematocrit TSH Urine Color Red Urine Clarity Turbid Urine pH 8.0 Ur Specific [place] 1.015 Urine Protein 500 H Urine Glucose (UA) Normal Urine Ketones Negative Urine Occult Blood 50 H Urine Nitrite Negative Urine Bilirubin 6 H Urine Urobilinogen Normal Ur Leukocyte Esterase Negative Urine RBC > 100 SEEN Urine WBC 0 SEEN Ur Squamous Epith Cells 0 SEEN Urine Bacteria 0 SEEN Urine Mucus 0 SEEN Blood Type A POSITIVE 05/03/18 05/03/18 05/03/18 11:15 11:15 11:15 Hgb Hct PT Cancelled INR Cancelled Phosphorus 3.3 Magnesium 2.3 Total Bilirubin Direct Bilirubin AST ALT Alkaline Phosphatase Total Protein Albumin Globulin Vitamin B12 356 RBC Folate Hemolysate RBC Folate Hematocrit TSH Urine Color Urine Clarity Urine pH Ur Specific [place] Urine Protein Urine Glucose (UA) Urine Ketones Urine Occult Blood Urine Nitrite Urine Bilirubin Urine Urobilinogen Ur Leukocyte Esterase Urine RBC Urine WBC Ur Squamous Epith Cells Urine Bacteria Urine Mucus Blood Type 05/03/18 05/03/18 05/03/18 11:15 17:00 17:00 Hgb 14.4 Hct 43.2 PT 18.2 H INR 1.5 Phosphorus Magnesium Total Bilirubin Direct Bilirubin AST ALT Alkaline Phosphatase Total Protein Albumin Globulin Vitamin B12 RBC Folate Hemolysate Pending RBC Folate Pending Hematocrit Pending TSH Urine Color Urine Clarity Urine pH Ur Specific [place] Urine Protein Urine Glucose (UA) Urine Ketones Urine Occult Blood Urine Nitrite Urine Bilirubin Urine Urobilinogen Ur Leukocyte Esterase Urine RBC Urine WBC Ur Squamous Epith Cells Urine Bacteria Urine Mucus Blood Type 05/03/18 05/04/18 21:15 06:08 Hgb 13.7 Hct 43.3 PT INR Phosphorus Magnesium Total Bilirubin Direct Bilirubin AST ALT Alkaline Phosphatase Total Protein Albumin Globulin Vitamin B12 RBC Folate Hemolysate RBC Folate Hematocrit TSH 0.58 Urine Color Urine Clarity Urine pH Ur Specific [place] Urine Protein Urine Glucose (UA) Urine Ketones Urine Occult Blood Urine Nitrite Urine Bilirubin Urine Urobilinogen Ur Leukocyte Esterase Urine RBC Urine WBC Ur Squamous Epith Cells Urine Bacteria Urine Mucus Blood Type Assessment/Plan All Active Problems (Last Reviewed 05/03/18 @ 17:19 by Cash Kam MD) Gross hematuria (Acute) Overweight (Acute) MASOOD (obstructive sleep apnea) (Acute) Colovesical fistula (Acute) We will prep the patient for a colonoscopy which we will do on Sunday. We will need to consult Dr. Rojo for cardiac clearance. If he is at a high risk for surgery then he will probably not be able to have a surgery done here in [place]. Risk benefits to the colonoscopy were reviewed with the patient to include bleeding infection possible injury to the colon which could require an emergent surgery patient understood these risks and is willing to proceed.
--- NOTE | 2018-05-04 08:41 | CON.PCM_ITS ---
Problem List (1) Colovesical fistula Status: Acute Reason for Consult Date of Consultation: 05/04/18 History of Present Illness: The patient is a 62 year old M who presented to [facility] with gross hematuria. He was on Coumadin he was subsequently reversed with FFP and vitamin K and subsequently taken to surgery by Dr. Fry and underwent a cystoscopy. Patient was noted to have a bladder stone. And on inspection Dr. Ifeoma avlies identified a colovesical fistula. Dr. Dia I did not think that this was a malignancy from the bladder. A CAT scan of the pelvis with rectal contrast confirmed a colovesical fistula with contrast entering the bladder. There was no obvious signs of a malignancy. Patient states that he had a colonoscopy done in [facility] better than 6 years ago and there was no identification of malignancy at that time but he was told that he had a mild case of diverticulitis. Patient does not have a history of recurrent or repeated diverticulitis. Patient has a significant coronary history with an ejection fraction of less than 30% as well as chronic atrial fibrillation. 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 Past Medical History Past Medical History (Chronic Problems): Chronic Problems (Last Reviewed 05/03/18 @ 17:19 by Cash Kam MD) Tobacco dependence (Chronic) Pulmonary hypertension (Chronic) Atherosclerotic heart disease of [place] coronary artery without angina pectoris (Chronic) Mild 25-50% stenosis mid LAD Severe left ventricular systolic dysfunction (Chronic) 30% EF in August 2017 with moderate global right ventricular systolic dysfunction, severe left atrial enlargement, left atrial appendage thrombus, severely enlarged right atrium moderate aortic valve stenosis Nonrheumatic aortic (valve) stenosis (Chronic) 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) Managed by PCP, warfarin Paroxysmal atrial fibrillation (Chronic) Medical History: Medical History (Last Reviewed 05/04/18 @ 08:39 by Prasanth Pradhan MD) Pulmonary hypertension (Chronic) I27.20 Atherosclerotic heart disease of [place] coronary artery without angina pectoris (Chronic) I25.10 Mild 25-50% stenosis mid LAD Severe left ventricular systolic dysfunction (Chronic) I51.9 30% EF in August 2017 with moderate global right ventricular systolic dysfunction, severe left atrial enlargement, left atrial appendage thrombus, severely enlarged right atrium moderate aortic valve stenosis Nonrheumatic aortic (valve) stenosis (Chronic) I35.0 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 (Chronic) I10 jail (current) use of anticoagulants (Chronic) Z79.01 Managed by PCP, warfarin Paroxysmal atrial fibrillation (Chronic) I48.0 MASOOD (obstructive sleep apnea) G47.33 Bilateral edema of lower extremity R60.0 Resolved Allergies No Known Allergies Allergy (Verified 05/03/18 07:02) Home Medications: Ambulatory Orders Medication Instructions Recorded Furosemide [Lasix] 20 mg PO DAILY 04/24/14 gabapentin 300 mg capsule 300 mg PO TID 06/11/17 magnesium oxide 400 mg capsule 400 mg PO QDAY cap 06/11/17 potassium chloride ER 10 mEq 10 meq PO QDAY cap 06/11/17 capsule,extended release warfarin 5 mg tablet 5 mg PO .COMPLEX 06/11/17 aspirin 81 mg tablet,delayed 81 mg PO QDAY 08/15/17 release atorvastatin 40 mg tablet 40 mg PO QDAY #30 tab 12/14/17 Carvedilol 25 mg PO BID 05/03/18 Lisinopril [Zestril] 5 mg PO QDAY 05/03/18 Nitrofurantoin Macrocrystal 100 mg PO BID 05/03/18 [Macrodantin] Surgical History: Surgical History (Last Reviewed 05/04/18 @ 08:39 by Prasanth Pradhan MD) History of hernia repair Z98.890, Z87.19 History of laminectomy Z98.890 Surgical History: herniorrhaphy - LEft inguinal, - - He has a titanium jeremías in the right lower extremity distal to the knee. Psychiatric History: No pertinent psych hx Lives: Spouse/ Significant Other Smoking Status: Current every day smoker Tobacco Use: Cigarettes Alcohol: Occasional Drugs: None - *Family History Maternal Family History: Family History (Last Reviewed 09/20/17 @ 11:46 by Faith Singh) Mother History of DVT (deep vein thrombosis) Father Atrial fibrillation Diabetes Sister History of DVT (deep vein thrombosis) Brother History of DVT (deep vein thrombosis) Sibling Family History: Family History (Last Reviewed 09/20/17 @ 11:46 by Faith Singh) Mother History of DVT (deep vein thrombosis) Father Atrial fibrillation Diabetes Sister History of DVT (deep vein thrombosis) Brother History of DVT (deep vein thrombosis) History Items: - - Both his brother and sister have a factor V deficiency Review of Systems Constitutional: Denies: Chills, Fever, Weight Change Cardiovascular: Denies: Chest Pain, Chest Pressure, Chest Tightness, Palpitations Respiratory: Denies: Cough, Hemoptysis, Shortness of breath at rest, Shortness of breath upon exertion, Wheezing Gastrointestinal: Denies: Abdominal Pain, Constipation, Diarrhea, Hematemesis, Nausea, Melena, Vomiting Genitourinary: Reports: Hematuria Patient Problems: Active and Suspected Problems (Last Reviewed 05/03/18 @ 17:19 by Cash Kam MD) Gross hematuria (Acute) Overweight (Acute) MASOOD (obstructive sleep apnea) (Acute) non-compliant with CPAP Peripheral arterial disease (Suspected) Colovesical fistula (Acute) - Physical Exam General: Alert, Oriented x3 Lungs: Clear to auscultation Cardiovascular: Regular rate, Regular Rhythm, No murmurs Abdomen: Bowel Sounds Present, Soft, Non Tender, Non-Distended Vital Signs Temp Pulse Resp BP Pulse Ox 98.1 F 76 14 106/54 L 97 05/04/18 08:31 05/04/18 08:31 05/04/18 08:31 05/04/18 08:31 05/04/18 08:31 Oxygen Delivery Method Room Air Weight: 220 lb 10.923 oz Body Mass Index (BMI) 29.9 Intake and Output for Last 24 Hours 05/02/18 05/03/18 05/04/18 23:59 23:59 23:59 Intake Total 2136 / 2136 550 / 550 Output Total 3200 / 3200 400 / 400 Balance -1064 / -1064 150 / 150 Laboratory Tests Past 24 Hrs 05/03/18 05/03/18 05/03/18 07:40 07:40 11:15 Hgb Hct PT INR Phosphorus Magnesium Total Bilirubin 0.90 Direct Bilirubin 0.30 AST 28 ALT 30 Alkaline Phosphatase 61 Total Protein 7.4 Albumin 3.8 Globulin 3.6 Vitamin B12 RBC Folate Hemolysate RBC Folate Hematocrit TSH Urine Color Red Urine Clarity Turbid Urine pH 8.0 Ur Specific [place] 1.015 Urine Protein 500 H Urine Glucose (UA) Normal Urine Ketones Negative Urine Occult Blood 50 H Urine Nitrite Negative Urine Bilirubin 6 H Urine Urobilinogen Normal Ur Leukocyte Esterase Negative Urine RBC > 100 SEEN Urine WBC 0 SEEN Ur Squamous Epith Cells 0 SEEN Urine Bacteria 0 SEEN Urine Mucus 0 SEEN Blood Type A POSITIVE 05/03/18 05/03/18 05/03/18 11:15 11:15 11:15 Hgb Hct PT Cancelled INR Cancelled Phosphorus 3.3 Magnesium 2.3 Total Bilirubin Direct Bilirubin AST ALT Alkaline Phosphatase Total Protein Albumin Globulin Vitamin B12 356 RBC Folate Hemolysate RBC Folate Hematocrit TSH Urine Color Urine Clarity Urine pH Ur Specific [place] Urine Protein Urine Glucose (UA) Urine Ketones Urine Occult Blood Urine Nitrite Urine Bilirubin Urine Urobilinogen Ur Leukocyte Esterase Urine RBC Urine WBC Ur Squamous Epith Cells Urine Bacteria Urine Mucus Blood Type 05/03/18 05/03/18 05/03/18 11:15 17:00 17:00 Hgb 14.4 Hct 43.2 PT 18.2 H INR 1.5 Phosphorus Magnesium Total Bilirubin Direct Bilirubin AST ALT Alkaline Phosphatase Total Protein Albumin Globulin Vitamin B12 RBC Folate Hemolysate Pending RBC Folate Pending Hematocrit Pending TSH Urine Color Urine Clarity Urine pH Ur Specific [place] Urine Protein Urine Glucose (UA) Urine Ketones Urine Occult Blood Urine Nitrite Urine Bilirubin Urine Urobilinogen Ur Leukocyte Esterase Urine RBC Urine WBC Ur Squamous Epith Cells Urine Bacteria Urine Mucus Blood Type 05/03/18 05/04/18 21:15 06:08 Hgb 13.7 Hct 43.3 PT INR Phosphorus Magnesium Total Bilirubin Direct Bilirubin AST ALT Alkaline Phosphatase Total Protein Albumin Globulin Vitamin B12 RBC Folate Hemolysate RBC Folate Hematocrit TSH 0.58 Urine Color Urine Clarity Urine pH Ur Specific [place] Urine Protein Urine Glucose (UA) Urine Ketones Urine Occult Blood Urine Nitrite Urine Bilirubin Urine Urobilinogen Ur Leukocyte Esterase Urine RBC Urine WBC Ur Squamous Epith Cells Urine Bacteria Urine Mucus Blood Type Assessment/Plan All Active Problems (Last Reviewed 05/03/18 @ 17:19 by Cash Kam MD) Gross hematuria (Acute) Overweight (Acute) MASOOD (obstructive sleep apnea) (Acute) Colovesical fistula (Acute) We will prep the patient for a colonoscopy which we will do on Sunday. We will need to consult Dr. Rojo for cardiac clearance. If he is at a high risk for surgery then he will probably not be able to have a surgery done here in [place]. Risk benefits to the colonoscopy were reviewed with the patient to include bleeding infection possible injury to the colon which could require an emergent surgery patient understood these risks and is willing to proceed.
--- NOTE | 2018-05-04 10:49 | PCM.CONS.C ---
Reason for Consult Date of Consultation: 05/04/18 Reason for Consultation: Evaluation of cardiac status. History of Present Illness: The patient is a 62 year old M with a past medical history of hypertension, dilated cardiomyopathy with a 30% ejection fraction, coronary artery disease, ongoing tobacco dependence, atrial fibrillation, chronic anticoagulation with warfarin, osteoarthritis, nonrheumatic moderate aortic stenosis, severe biatrial enlargement, history of thrombus in the left atrial appendage in August 2017 and moderate pulmonary hypertension who presented to the ED at [facility] on 05/03/2018 complaining of blood in the urine that began on 05/02/2018. He denied fevers/chills/dysuria. He has never had hematuria before. He is on Coumadin and is therapeutic with an INR of 2.6. He denies any history of kidney stones and he does not have flank pain. A CT scan of the abdomen and pelvis was reported as a large bladder mass causing a marked degree of bladder dilatation. There was a moderate degree of right hydronephrosis and right hydroureter with no ureteral obstruction seen. There was a 2.5 mm nonobstructive calculus in the upper pole of the left kidney. There is diverticulosis with no evidence of diverticulitis. He was evaluated by the assembly machine operator and subsequently by the general surgeon and there are plans to perform a colonoscopy soon and the present consultation was for cardiac clearance. Past Medical History Allergies/Adverse Reactions: Allergies No Known Allergies Allergy (Verified 05/03/18 07:02) Home Medications: Ambulatory Orders Medication Instructions Recorded Furosemide [Lasix] 20 mg PO DAILY 04/24/14 gabapentin 300 mg capsule 300 mg PO TID 06/11/17 magnesium oxide 400 mg capsule 400 mg PO QDAY cap 06/11/17 potassium chloride ER 10 mEq 10 meq PO QDAY cap 06/11/17 capsule,extended release warfarin 5 mg tablet 5 mg PO .COMPLEX 06/11/17 aspirin 81 mg tablet,delayed 81 mg PO QDAY 08/15/17 release atorvastatin 40 mg tablet 40 mg PO QDAY #30 tab 12/14/17 Carvedilol 25 mg PO BID 05/03/18 Lisinopril [Zestril] 5 mg PO QDAY 05/03/18 Nitrofurantoin Macrocrystal 100 mg PO BID 05/03/18 [Macrodantin] Past Medical History (Chronic Problems): Chronic Problems (Last Reviewed 05/04/18 @ 08:39 by Prasanth Pradhan MD) Tobacco dependence (Chronic) Pulmonary hypertension (Chronic) Atherosclerotic heart disease of [place] coronary artery without angina pectoris (Chronic) Mild 25-50% stenosis mid LAD Severe left ventricular systolic dysfunction (Chronic) 30% EF in August 2017 with moderate global right ventricular systolic dysfunction, severe left atrial enlargement, left atrial appendage thrombus, severely enlarged right atrium moderate aortic valve stenosis Nonrheumatic aortic (valve) stenosis (Chronic) 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 (Chronic) longterm (current) use of anticoagulants (Chronic) Managed by PCP, warfarin Paroxysmal atrial fibrillation (Chronic) Surgical History: herniorrhaphy - LEft inguinal, - - He has a titanium jeremías in the right lower extremity distal to the knee. Psychiatric History: No pertinent psych hx - *Family History Maternal Family History: Family History (Last Reviewed 09/20/17 @ 11:46 by Faith Singh) Mother History of DVT (deep vein thrombosis) Father Atrial fibrillation Diabetes Sister History of DVT (deep vein thrombosis) Brother History of DVT (deep vein thrombosis) Sibling Family History: Family History (Last Reviewed 09/20/17 @ 11:46 by Faith Singh) Mother History of DVT (deep vein thrombosis) Father Atrial fibrillation Diabetes Sister History of DVT (deep vein thrombosis) Brother History of DVT (deep vein thrombosis) History Items: - - Both his brother and sister have a factor V deficiency Lives: Spouse/ Significant Other Smoking Status: Current every day smoker Tobacco Use: Cigarettes Alcohol: Occasional Drugs: None Subjectve: Pleasant gentleman in no apparent distress Objective: Vital Signs Temp Pulse Resp BP Pulse Ox 98.1 F 76 14 106/54 L 97 05/04/18 08:31 05/04/18 08:31 05/04/18 08:31 05/04/18 08:31 05/04/18 08:31 Oxygen Delivery Method Room Air Weight: 220 lb 10.923 oz Body Mass Index (BMI) 29.9 Intake and Output for Last 24 Hours 05/02/18 05/03/18 05/04/18 23:59 23:59 23:59 Intake Total 2136 / 2136 550 / 550 Output Total 3200 / 3200 400 / 400 Balance -1064 / -1064 150 / 150 General: Awake, Alert, Oriented x 3 HEENT: PERRL, EOMI, Sclera Non Icteric Neck: Supple, Good ROM, No Lymph Node Enlargement Lungs: Clear to auscultation Cardiovascular: Irregular Rhythm, Normal S1, Normal S2, No Rubs, No Gallops Murmur Murmur: Grade 2/6, Early Systolic, LLSB Vascular: No Carotid Bruits, Normal Femoral Pulses, Normal Radial Pulses, Normal Dorsalis Pedal Pulse, Normal Posterior Tibial Pulses Abdomen: Bowel Sounds Present, Soft, Non Tender, No HSM, No Organomegaly Extremities: No Cyanosis, No Clubbing, No edema Skin: No Rashes Lymphatic: No Lymph Node Enlargement Neurological: No Focal Motor or Sensory Deficit Psych/Mental Status: Appropriate 05/03/18 11:15: Total Bilirubin 0.90, Direct Bilirubin 0.30 05/03/18 11:15: PT Cancelled, INR Cancelled 05/03/18 11:15: Phosphorus 3.3, Magnesium 2.3 05/03/18 17:00: Hgb 14.4, Hct 43.2 05/03/18 17:00: PT 18.2 H, INR 1.5 05/03/18 21:15: Hgb 13.7, Hct 43.3 Rhythm: EKG: ECHO: Stress Test: Cardiac Cath: PCI: CT Surgery: Holter monitor: EPS: PPM: CXR: Chest CT Scan: Assessment/Plan 1. Cardiovascular status a. Patient has mild coronary artery disease following cardiac catheterization in August 2017. There are no high-grade obstructive lesions noted. On the basis of the above I do not think that coronary disease should pose a problem to him undergoing the intended procedure. b. Cardiomyopathy-the patient appears to have a cardiomyopathy which is out of proportion to the coronary disease. The above is likely secondary to the valvular heart disease. His estimated ejection fraction is in the range of 30%. Recommendations would be to use cautious intravenous fluids only. This may be taken into consideration as well depending on whether propofol or etomidate is given for sedation for his colonoscopy. c. Aortic valve disease-patient has known aortic valve disease. However by cardiac catheterization as well as JILL it does not appear that the above is severe. Would recommend that we avoid hypotension. d. Atrial fibrillation-patient has history of atrial fibrillation. Ventricular response rate at the present time appears to be controlled and therefore we will continue the same. Anticoagulation of course needs to be held due to the hematuria as well as the impending procedures. e. Pulmonary hypertension-patient has pulmonary hypertension which appears to be moderate. Would recommend withholding intravenous fluid and being cautious with intravenous fluids administration. At this juncture I do not see any contraindication for the patient undergoing the colonoscopy.
--- NOTE | 2018-05-04 11:32 | PN_ITS ---
Patient Problems: Active and Suspected Problems (Last Reviewed 05/04/18 @ 08:39 by Prasanth Pradhan MD) Gross hematuria (Acute) Overweight (Acute) MASOOD (obstructive sleep apnea) (Acute) non-compliant with CPAP Peripheral arterial disease (Suspected) Colovesical fistula (Acute) Subjective: All events of the past 24 hours been reviewed. Afebrile since admission Vital signs are stable and he is 97% saturated on room air. Disc otoscopy revealed multiple clots in the bladder and a large bladder stone which was lasered and taken out in pieces. There was also a colovesical fistula present and Dr. Pradhan was consulted. He plans on colonoscopy on Sunday. Dr. Kurt Blanchard was consulted for preoperative clearance and he does not see any contraindication for the patient undergoing colonoscopy at this time. Will need to avoid hypotension in light of the moderate and also avoid volume overload in light of pulmonary HTN. Denies SOB, no CP, no ankle edema, denies dysuria. Bladder irrigation was discontinued and the urine is pink, no clots and no hesitancy Objective: - Physical Exam General: Alert, Oriented x3, Cooperative, No apparent distress, Well developed, Well nourished HEENT: Atraumatic, PERRLA, EOMI, Normocephalic Oral: Moist Mucosa, No Gingival or Mucosal Lesions/ Ulcerations Neck: Supple, No JVD, Negative Carotid Bruits, No Nodes, No Nuchal Rigidity, Trachea Midline Lungs: Clear to auscultation, Diminished Cardiovascular: Normal S1, Normal S2, Irregular Rate - Telemetry shows atrial fibrillation and so does the EKG, Murmur - He has a systolic ejection murmur at the second right intercostal space with radiation to the left ventricular outflow tract and the apex. He also has a systolic murmur in the left axillary area. No diastolic murmurs., No rub noted, No Gallop Abdomen: Bowel Sounds Present, Soft, Non Tender, Non-Distended Extremities: No clubbing, No cyanosis, No edema, Diminished Peripheral Pulses, - - femoral, DP, PT and the popliteal pulses are all very diminished. Skin: No breakdown, - - He has discoloration and stasis dermatitis of the distal RLE and less stasis dermatitis on the R LE distal to the knee Musculoskeletal: No Muscle Wasting Neurological: Cranial nerves II-XII grossly intact, Neuro grossly intact Psych/Mental Status: Normal Affect, Appropriate - Physical Exam Vital Signs Temp Pulse Resp BP Pulse Ox 98.1 F 76 14 106/54 L 97 05/04/18 08:31 05/04/18 08:31 05/04/18 08:31 05/04/18 08:31 05/04/18 08:31 Oxygen Delivery Method Room Air Weight: 220 lb 10.923 oz Body Mass Index (BMI) 29.9 Intake and Output for Last 24 Hours 05/02/18 05/03/18 05/04/18 23:59 23:59 23:59 Intake Total 2136 / 2136 550 / 550 Output Total 3200 / 3200 400 / 400 Balance -1064 / -1064 150 / 150 Laboratory Tests Past 24 Hrs 05/03/18 05/03/18 05/03/18 11:15 11:15 11:15 Hgb Hct PT Cancelled INR Cancelled Phosphorus Magnesium Total Bilirubin 0.90 Direct Bilirubin 0.30 AST 28 ALT 30 Alkaline Phosphatase 61 Total Protein 7.4 Albumin 3.8 Globulin 3.6 Vitamin B12 356 RBC Folate Hemolysate RBC Folate Hematocrit TSH 05/03/18 05/03/18 05/03/18 11:15 11:15 17:00 Hgb 14.4 Hct 43.2 PT INR Phosphorus 3.3 Magnesium 2.3 Total Bilirubin Direct Bilirubin AST ALT Alkaline Phosphatase Total Protein Albumin Globulin Vitamin B12 RBC Folate Hemolysate Pending RBC Folate Pending Hematocrit Pending TSH 05/03/18 05/03/18 05/04/18 17:00 21:15 06:08 Hgb 13.7 Hct 43.3 PT 18.2 H INR 1.5 Phosphorus Magnesium Total Bilirubin Direct Bilirubin AST ALT Alkaline Phosphatase Total Protein Albumin Globulin Vitamin B12 RBC Folate Hemolysate RBC Folate Hematocrit TSH 0.58 Medical Necessity - Tobacco Use Smoking Status: Current every day smoker Tobacco Use: Cigarettes Assessment/Plan All Active Problems (Last Reviewed 05/04/18 @ 08:39 by Prasanth Pradhan MD) Gross hematuria (Acute) Overweight (Acute) MASOOD (obstructive sleep apnea) (Acute) Colovesical fistula (Acute) Impressions 1. Gross hematuria with right hydronephrosis and hydroureter and possible large bladder mass versus clot 2. Cardiomyopathy with a 25 to 30% ejection fraction 3. Coronary artery disease with [place] multivessel coronary artery disease on cardiac catheterization in August 2017 0. 4. Severe pulmonary hypertension 5. Severe biatrial enlargement with history of left atrial appendage thrombus in the past 6. Nonrheumatic aortic valve stenosis-moderate 7. Ongoing tobacco dependence 8. Suspected peripheral vascular disease 9. Chronic anticoagulation with warfarin 10. Family history of factor V deficiency in his siblings and he has never been tested so he may be hypercoagulable maintain the suarez colonoscopy with Dr. Pradhan on Sunday Hold anticoagulation recheck lab in the a.m. Code Visit Inpatient E&M: [id number] Subs Hosp L2
--- NOTE | 2018-05-04 12:37 | CASEMGMT ---
Face to Face with patient for initial transition planning/care coordination assessment. LUIS FERNÁNDEZ introduced self and role at [facility], voices understanding. Care providers, pharmacy, and demographics verified. PCP: Gina Wong Specialists: [facility] cardiology Preferred [facility]acy: [facility] Insurance: [facility] Living Arrangements: Pt lives a one story home with his father. There are no steps into the home, there is a ramp. There are 12 steps into the basement where the laundry is located but there is stair chair to the basement for his father uses. States his father is independent with ADLS including cooking and does not rely the pt for care. 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 Pt states he has other family that are available to help with any transportation needs for his father but states he does not have others that would be available to help him at discharge if needed. Transportation: Drives independently DME/HHC: Pt has a BSC, cane, rollator walker, grab bars in the shower, and a CPAP (but does not use, states he can't breathe with it). Pt unsure who he has obtained his DME from in the past and does not have any preference, if there are additional needs at discharge. Pt has not had home health nor needed SNF stay in the past. Plan: TBD. Eliud RN
--- NOTE | 2018-05-04 14:09 | NURSING ---
student nurse charting reviewed.
--- NOTE | 2018-05-04 14:19 | NURSING ---
05/04/2018 AT 1420: FLUSHED PATIENT'S BLACKWELL CATHETER WITH 40CCS, STERILE SALINE. TOLERATED WELL.
[2018-05-04] MEDS: Atorvastatin Calcium 40 MG Tablet PO (20:56)
--- NOTE | 2018-05-04 21:04 | NURSING ---
URINE DARK RED NO CLOTS NOTED, PATIENT REFUSING TO HAVE IRRIGATED AT THIS TIME.
[2018-05-05] VITALS (11 sets, daily range): BP systolic 103–127; BP diastolic 60–71; PULSE 52–78; RESP 14–18; TEMP 36.7–37.1; O2SAT 95–98
--- NOTE | 2018-05-05 02:22 | NURSING ---
BLACKWELL DRAINING YELLOW AT THIS TIME, SOME SMALL CLOTS NOTED BUT DRAINING WELL.
[2018-05-05] MEDS: Gabapentin 300 MG Capsule PO ×3 (04:53→21:50)
[2018-05-05 06:38] LABS: Absolute Lymphocyte Count 1.98 X10^3/ul (0.83-4.51); Absolute Neutrophil Count 4.6 X10^3/uL (2.0-7.7); Basophil# 0.04 X10^3/uL; Basophil% 0.5 % (0-1); Eosinophil# 0.24 X10^3/uL; Hematocrit 37.5 % (40-54); Lymphocyte # 1.98 X10^3/ul (4.0); Lymphocyte % 24.8 % (19-41); Mean Corpuscular Hgb 38.7 pg (27.0-32.0); Mean Platelet Vol. 10.8 fl (6.2-12.0); Monocyte% 13.8 % (0-10); Neutrophil # 4.57 X10^3/uL (2.7-7.7); Neutrophil % 57.4 % (47-70); Platelet Count 131 K/mm3 (150-450); RBC Distribution Width CV 13.8 % (11.6-14.6); RBC Distribution Width SD 59.2 fl (35.1-43.9)
[2018-05-05 06:40] LABS: POSITIVE COUNT NO; POSITIVE DIFFERENTIAL NO; POSITIVE MORPHOLOGY NO
[2018-05-05 06:58] LABS: Anion Gap 5 (5-15); BUN 6 mg/dL (7-18); Calcium,Total 8.1 mg/dL (8.5-10.1); Chloride 109 mmol/L (98-107); EST Glomerular Filtration Rate 146 mL/min (>60); Est Glom Filt Rate - Afr Amer 177 mL/min (>60); Estimated Creatinine Clearance 141.91 ml/min; Glucose 89 mg/dL (74-106); Sodium Level 140 mmol/L (136-145)
[2018-05-05] MEDS: Carvedilol 25 MG Tablet PO ×2 (08:45→16:34)
[2018-05-05] MEDS: Electrolyte Solution/Peg's 4000 ML PO (08:45)
[2018-05-05] MEDS: Lisinopril 5 MG Tablet PO (08:46)
[2018-05-05] MEDS: Furosemide 20 MG Tablet PO (08:46)
[2018-05-05] MEDS: Magnesium Oxide 400 MG Tablet PO (08:46)
--- NOTE | 2018-05-05 08:48 | PCM.PN.SRG ---
Patient Problems: Active and Suspected Problems (Last Reviewed 05/04/18 @ 08:39 by Prasanth Pradhan MD) Gross hematuria (Acute) Overweight (Acute) MASOOD (obstructive sleep apnea) (Acute) non-compliant with CPAP Peripheral arterial disease (Suspected) Colovesical fistula (Acute) Subjective: No complaints overnight. No abdominal pain. Will be starting his bowel prep today Objective: Abdomen is soft and nontender - Physical Exam Vital Signs Temp Pulse Resp BP Pulse Ox 98.3 F 65 16 119/67 96 05/05/18 08:43 05/05/18 08:43 05/05/18 08:43 05/05/18 08:43 05/05/18 08:43 Oxygen Delivery Method Room Air Weight: 220 lb 10.923 oz Body Mass Index (BMI) 29.9 Intake and Output for Last 24 Hours 05/03/18 05/04/18 05/05/18 23:59 23:59 23:59 Intake Total 2136 / 2136 3554 / 3554 623 / 623 Output Total 3200 / 3200 1230 / 1230 800 / 800 Balance -1064 / -1064 2324 / 2324 -177 / -177 Laboratory Tests Past 24 Hrs 05/05/18 05/05/18 06:25 06:25 WBC 8.0 RBC 3.10 L Hgb 12.0 L Hct 37.5 L MCV 121.0 H MCH 38.7 H MCHC 32.0 RDW 13.8 RDW Differential 59.2 H Plt Count 131 L MPV 10.8 Immature Gran % (Auto) 0.500 Neut % (Auto) 57.4 Lymph % (Auto) 24.8 [place] % (Auto) 13.8 H Eos % (Auto) 3.0 Baso % (Auto) 0.5 Absolute Neuts (auto) 4.6 Absolute Lymphs (auto) 1.98 Total Counted Not Reportable Sodium 140 Potassium 4.0 Chloride 109 H Carbon Dioxide 26.0 Anion Gap 5 BUN 6 L Creatinine 0.60 L Estim Creat Clear Calc 141.91 Est GFR (MDRD) Af Amer 177 Est GFR (MDRD) Non-Af 146 BUN/Creatinine Ratio 10.0 Glucose 89 Calcium 8.1 L Medical Necessity - Tobacco Use Smoking Status: Current every day smoker Tobacco Use: Cigarettes Assessment/Plan All Active Problems (Last Reviewed 05/04/18 @ 08:39 by Prasanth Pradhan MD) Gross hematuria (Acute) Overweight (Acute) MASOOD (obstructive sleep apnea) (Acute) Colovesical fistula (Acute) We will plan on a colonoscopy on Sunday morning at 630.
--- NOTE | 2018-05-05 09:54 | PCM.PN.CARD ---
Subjectve: Patient seen and evaluated. Appears to be doing fairly well from the cardiac standpoint. Objective: Vital Signs Temp Pulse Resp BP Pulse Ox 98.3 F 65 16 119/67 96 05/05/18 08:43 05/05/18 08:43 05/05/18 08:43 05/05/18 08:43 05/05/18 08:43 Oxygen Delivery Method Room Air Weight: 220 lb 10.923 oz Body Mass Index (BMI) 29.9 Intake and Output for Last 24 Hours 05/03/18 05/04/18 05/05/18 23:59 23:59 23:59 Intake Total 2136 / 2136 3554 / 3554 623 / 623 Output Total 3200 / 3200 1230 / 1230 800 / 800 Balance -1064 / -1064 2324 / 2324 -177 / -177 General: Awake, Alert, Oriented x 3 HEENT: PERRL, EOMI, Sclera Non Icteric Neck: Supple, Good ROM, No Lymph Node Enlargement Lungs: Clear to auscultation Cardiovascular: Regular Rhythm, Normal S1, Normal S2, No Rubs, No Gallops Murmur Murmur: Grade 2/6, Early Systolic, LLSB Vascular: No Carotid Bruits, Normal Femoral Pulses, Normal Radial Pulses, Normal Dorsalis Pedal Pulse, Normal Posterior Tibial Pulses Abdomen: Bowel Sounds Present, Soft, Non Tender, No HSM, No Organomegaly Extremities: No Cyanosis, No Clubbing, No edema Neurological: No Focal Motor or Sensory Deficit Psych/Mental Status: Appropriate 05/05/18 06:25: WBC 8.0, RBC 3.10 L, Hgb 12.0 L, Hct 37.5 L, MCV 121.0 H, MCH 38.7 H, MCHC 32.0, RDW 13.8, RDW Differential 59.2 H, Plt Count 131 L, MPV 10.8, Immature Gran % (Auto) 0.500, Neut % (Auto) 57.4, Lymph % (Auto) 24.8, [place] % (Auto) 13.8 H, Eos % (Auto) 3.0, Baso % (Auto) 0.5, Absolute Neuts (auto) 4.6, Total Counted Not Reportable 05/05/18 06:25: Sodium 140, Potassium 4.0, Chloride 109 H, Carbon Dioxide 26.0, Anion Gap 5, BUN 6 L, Creatinine 0.60 L, Est GFR (MDRD) Af Amer 177, Est GFR (MDRD) Non-Af 146, BUN/Creatinine Ratio 10.0, Glucose 89, Calcium 8.1 L Rhythm: EKG: ECHO: Stress Test: Cardiac Cath: PCI: CT Surgery: Holter monitor: EPS: PPM: CXR: Chest CT Scan: Medical Necessity - Tobacco Use Smoking Status: Current every day smoker Tobacco Use: Cigarettes Assessment/Plan 1. Cardiovascular status a. Patient has mild coronary artery disease following cardiac catheterization in August 2017. There are no high-grade obstructive lesions noted. On the basis of the above I do not think that coronary disease should pose a problem to him undergoing the intended procedure. b. Cardiomyopathy-the patient appears to have a cardiomyopathy which is out of proportion to the coronary disease. The above is likely secondary to the valvular heart disease. His estimated ejection fraction is in the range of 30%. He had a repeat echocardiogram at the [facility] in March of this year and I am trying to obtain that copy. Recommendations would be to use cautious intravenous fluids only. This may be taken into consideration as well depending on whether propofol or etomidate is given for sedation for his colonoscopy. c. Aortic valve disease-patient has known aortic valve disease. However by cardiac catheterization as well as JILL it does not appear that the above is severe. The above appears to be consistent with low flow low gradient aortic stenosis. Would recommend that we avoid hypotension. d. Atrial fibrillation-patient has history of atrial fibrillation. Ventricular response rate at the present time appears to be controlled and therefore we will continue the same. Anticoagulation of course needs to be held due to the hematuria as well as the impending procedures. e. Pulmonary hypertension-patient has pulmonary hypertension which appears to be moderate. Would recommend withholding intravenous fluid and being cautious with intravenous fluids administration. At this juncture I do not see any contraindication for the patient undergoing the colonoscopy. Above discussed with Dr. Pradhan.
--- NOTE | 2018-05-05 10:43 | CON.PCM_ITS ---
- Consult Date of Consult: 05/05/18 - Reason for Consult Follow-up on consultation, 62-year-old male who I saw originally for gross hematuria and a bladder stone CT scan yesterday demonstrated a large fistula between the bladder and the colon as suspected on cystoscopy. General surgery is been consulted also has been consulted with cardiology for evaluation preoperatively. He is undergoing a bowel prep today. He is can have a colonoscopy by general surgery tomorrow. The urine today is nice and clear t here is no more bleeding nurses can stop flushing just flush as necessary. The resection of the bowel from the bladder probably will require a cystotomy if necessary can help general surgery with this we may need to coordinate our schedules.
[2018-05-05] MEDS: 0.9% Normal Saline 1,000 ML 75 ML IV ×2 (12:00→21:50)
--- NOTE | 2018-05-05 16:02 | NURSING ---
1535- this RN notified dr Pradhan that pt is having stool thru his catheter since starting bowel prep. Dr. Pradhan notified this RN that this is expected. pt will go forward with colonoscopy saturday 05/06 and surgery 05/07.
[2018-05-05 18:37] LABS: International Normalized Ratio 1.1; Prothrombin Time (Protime)PT. 14.6 SECONDS (11.7-14.9)
[2018-05-05 19:51] LABS: Homocysteine 10.1 umol/L (3.2-10.7)
[2018-05-05] MEDS: Atorvastatin Calcium 40 MG Tablet PO (21:50)
--- NOTE | 2018-05-05 21:55 | PCM.PROGNOTE ---
Patient Problems: Active and Suspected Problems (Last Reviewed 05/04/18 @ 08:39 by Prasanth Pradhan MD) Gross hematuria (Acute) Overweight (Acute) MASOOD (obstructive sleep apnea) (Acute) non-compliant with CPAP Peripheral arterial disease (Suspected) Colovesical fistula (Acute) Subjective: The patient is a 62 year old M with a past medical history of hypertension, dilated cardiomyopathy with a 30% ejection fraction, coronary artery disease, ongoing tobacco dependence, diverticulosis atrial fibrillation, chronic anticoagulation with warfarin, osteoarthritis, nonrheumatic moderate aortic stenosis, severe biatrial enlargement, history of thrombus in the left atrial appendage in August 2017 and moderate pulmonary hypertension who presented to the ED at [facility] on 05/03/2018 complaining of blood in the urine that began on 05/02/2018. He underwent cystoscopy and had a large bladder stone that was lasered and removed in pieces, many clots were evacuated and there was a colovesicle fistula identified. He was seen by Dr. Pradhan and is scheduled for a colonoscopy on Sunday. He has been seen by Dr. Blanchard and he is stable for surgery. Need to avoid high blood pressures due to EF of 30% and avoid low BP's in light of the . All events of the past 24 hours been reviewed. Afebrile since admission. Vital signs are stable. Pulse ox is 96-90% on room air. No longer with blood in the urine but, has some stool in the urine now All lab was personally reviewed. Hemoglobin is 12.0, down from 16.1 at admission. Platelets are mildly decreased at 131,000 and the white blood cell count is 8.0 with a normal differential. INR today is 1.1 today, down from 2.6 at admission. He received 10 of vitamin K and 2 units of fresh frozen plasma at admission. Potassium is 4.0 and the BUN is 6 with a creatinine of 0.6. Denies chest pain, shortness of breath, ankle swelling. No palpitations. Denies dysuria. Objective: PHYSICAL EXAM: GENERAL: alert, oriented X 3, Cooperative, NAD ORAL: moist mucosa, no mucosal lesions NECK: No JVD, supple, trachea midline LUNGS: CTA, symmetric chest expansion HEART: RRR, Normal S1 and S2, no rub, no gallop ABDOMEN: soft, NT, ND, BS present, no guarding with palpation EXTREMITIES: no edema, no cyanosis, no calf tenderness SKIN: No rashes, no breakdown NEUROLOGIC: no focal neurologic deficits PSYCH: appropriate, normal affect, pleasant - Physical Exam Vital Signs Temp Pulse Resp BP Pulse Ox 98.2 F 61 16 127/71 H 98 05/05/18 16:31 05/05/18 19:12 05/05/18 16:31 05/05/18 16:31 05/05/18 16:31 Oxygen Delivery Method Room Air Weight: 220 lb 10.923 oz Body Mass Index (BMI) 29.9 Intake and Output for Last 24 Hours 05/03/18 05/04/18 05/05/18 23:59 23:59 23:59 Intake Total 2136 / 2136 3554 / 3554 4154 / 4154 Output Total 3200 / 3200 1230 / 1230 4000 / 4000 Balance -1064 / -1064 2324 / 2324 154 / 154 Laboratory Tests Past 24 Hrs 05/05/18 05/05/18 05/05/18 06:25 06:25 17:30 WBC 8.0 RBC 3.10 L Hgb 12.0 L Hct 37.5 L MCV 121.0 H MCH 38.7 H MCHC 32.0 RDW 13.8 RDW Differential 59.2 H Plt Count 131 L MPV 10.8 Immature Gran % (Auto) 0.500 Neut % (Auto) 57.4 Lymph % (Auto) 24.8 [place] % (Auto) 13.8 H Eos % (Auto) 3.0 Baso % (Auto) 0.5 Absolute Neuts (auto) 4.6 Absolute Lymphs (auto) 1.98 Total Counted Not Reportable PT 14.6 INR 1.1 Sodium 140 Potassium 4.0 Chloride 109 H Carbon Dioxide 26.0 Anion Gap 5 BUN 6 L Creatinine 0.60 L Estim Creat Clear Calc 141.91 Est GFR (MDRD) Af Amer 177 Est GFR (MDRD) Non-Af 146 BUN/Creatinine Ratio 10.0 Glucose 89 Calcium 8.1 L Homocysteine 05/05/18 18:45 WBC RBC Hgb Hct MCV MCH MCHC RDW RDW Differential Plt Count MPV Immature Gran % (Auto) Neut % (Auto) Lymph % (Auto) [place] % (Auto) Eos % (Auto) Baso % (Auto) Absolute Neuts (auto) Absolute Lymphs (auto) Total Counted PT INR Sodium Potassium Chloride Carbon Dioxide Anion Gap BUN Creatinine Estim Creat Clear Calc Est GFR (MDRD) Af Amer Est GFR (MDRD) Non-Af BUN/Creatinine Ratio Glucose Calcium Homocysteine 10.1 Medical Necessity - Tobacco Use Smoking Status: Current every day smoker Tobacco Use: Cigarettes Assessment/Plan All Active Problems (Last Reviewed 05/04/18 @ 08:39 by Prasanth Pradhan MD) Gross hematuria (Acute) Overweight (Acute) MASOOD (obstructive sleep apnea) (Acute) Colovesical fistula (Acute) Impressions 1. Gross hematuria with right hydronephrosis and hydroureter - bladder stone and colovesical fistula at cystoscopy 2. Cardiomyopathy with a 25 to 30% ejection fraction 3. Coronary artery disease with [place] multivessel coronary artery disease on cardiac catheterization in August 2017 0. 4. Severe pulmonary hypertension 5. Severe biatrial enlargement with history of left atrial appendage thrombus in the past 6. Nonrheumatic aortic valve stenosis-moderate 7. Ongoing tobacco dependence 8. Suspected peripheral vascular disease 9. Chronic anticoagulation with warfarin 10. Family history of factor V deficiency in his siblings and he has never been tested so he may be hypercoagulable Colonoscopy tomorrow recheck the lab in the AM He has had increasing MCV and the B12 is low normal - folate is pending. Will check homocysteine and MMA to r/o functional B12 deficiency Code Visit Inpatient E&M: 36395 Subs Hosp L2
--- NOTE | 2018-05-05 22:01 | PN_ITS ---
Patient Problems: Active and Suspected Problems (Last Reviewed 05/04/18 @ 08:39 by Prasanth Pradhan MD) Gross hematuria (Acute) Overweight (Acute) MASOOD (obstructive sleep apnea) (Acute) non-compliant with CPAP Peripheral arterial disease (Suspected) Colovesical fistula (Acute) Subjective: The patient is a 62 year old M with a past medical history of hypertension, dilated cardiomyopathy with a 30% ejection fraction, coronary artery disease, ongoing tobacco dependence, diverticulosis atrial fibrillation, chronic antic oagulation with warfarin, osteoarthritis, nonrheumatic moderate aortic stenosis, severe biatrial enlargement, history of thrombus in the left atrial appendage in August 2017 and moderate pulmonary hypertension who presented to the ED at [facility] on 05/03/2018 complaining of blood in the urine that began on 05/02/2018. He underwent cystoscopy and had a large bladder stone that was lasered and removed in pieces, many clots were evacuated and there was a colovesicle fistula identified. He was seen by Dr. Pradhan and is scheduled for a colonoscopy on Sunday. He has been seen by Dr. Blanchard and he is stable for surgery. Need to avoid high blood pressures due to EF of 30% and avoid low BP's in light of the . All events of the past 24 hours been reviewed. Afebrile since admission. Vital signs are stable. Pulse ox is 96-90% on room air. No longer with blood in the urine but, has some stool in the urine now All lab was personally reviewed. Hemoglobin is 12.0, down from 16.1 at admi ssion. Platelets are mildly decreased at 131,000 and the white blood cell count is 8.0 with a normal differential. INR today is 1.1 today, down from 2.6 at admission. He received 10 of vitamin K and 2 units of fresh frozen plasma at admission. Potassium is 4.0 and the BUN is 6 with a creatinine of 0.6. Denies chest pain, shortness of breath, ankle swelling. No palpitations. Denies dysuria. Objective: PHYSICAL EXAM: GENERAL: alert, oriented X 3, Cooperative, NAD ORAL: moist mucosa, no mucosal lesions NECK: No JVD, supple, trachea midline LUNGS: CTA, symmetric chest expansion HEART: RRR, Normal S1 and S2, no rub, no gallop ABDOMEN: soft, NT, ND, BS present, no guarding with palpation EXTREMITIES: no edema, no cyanosis, no calf tenderness SKIN: No rashes, no breakdown NEUROLOGIC: no focal neurologic deficits PSYCH: appropriate, normal affect, pleasant - Physical Exam Vital Signs Temp Pulse Resp BP Pulse Ox 98.2 F 61 16 127/71 H 98 05/05/18 16:31 05/05/18 19:12 05/05/18 16:31 05/05/18 16:31 05/05/18 16:31 Oxygen Delivery Method Room Air Weight: 220 lb 10.923 oz Body Mass Index (BMI) 29.9 Intake and Output for Last 24 Hours 05/03/18 05/04/18 05/05/18 23:59 23:59 23:59 Intake Total 2136 / 2136 3554 / 3554 4154 / 4154 Output Total 3200 / 3200 1230 / 1230 4000 / 4000 Balance -1064 / -1064 2324 / 2324 154 / 154 Laboratory Tests Past 24 Hrs 05/05/18 05/05/18 05/05/18 06:25 06:25 17:30 WBC 8.0 RBC 3.10 L Hgb 12.0 L Hct 37.5 L MCV 121.0 H MCH 38.7 H MCHC 32.0 RDW 13.8 RDW Differential 59.2 H Plt Count 131 L MPV 10.8 Immature Gran % (Auto) 0.500 Neut % (Auto) 57.4 Lymph % (Auto) 24.8 [place] % (Auto) 13.8 H Eos % (Auto) 3.0 Baso % (Auto) 0.5 Absolute Neuts (auto) 4.6 Absolute Lymphs (auto) 1.98 Total Counted Not Reportable PT 14.6 INR 1.1 Sodium 140 Potassium 4.0 Chloride 109 H Carbon Dioxide 26.0 Anion Gap 5 BUN 6 L Creatinine 0.60 L Estim Creat Clear Calc 141.91 Est GFR (MDRD) Af Amer 177 Est GFR (MDRD) Non-Af 146 BUN/Creatinine Ratio 10.0 Glucose 89 Calcium 8.1 L Homocysteine 05/05/18 18:45 WBC RBC Hgb Hct MCV MCH MCHC RDW RDW Differential Plt Count MPV Immature Gran % (Auto) Neut % (Auto) Lymph % (Auto) [place] % (Auto) Eos % (Auto) Baso % (Auto) Absolute Neuts (auto) Absolute Lymphs (auto) Total Counted PT INR Sodium Potassium Chloride Carbon Dioxide Anion Gap BUN Creatinine Estim Creat Clear Calc Est GFR (MDRD) Af Amer Est GFR (MDRD) Non-Af BUN/Creatinine Ratio Glucose Calcium Homocysteine 10.1 Medical Necessity - Tobacco Use Smoking Status: Current every day smoker Tobacco Use: Cigarettes Assessment/Plan All Active Problems (Last Reviewed 05/04/18 @ 08:39 by Prasanth Pradhan MD) Gross hematuria (Acute) Overweight (Acute) MASOOD (obstructive sleep apnea) (Acute) Colovesical fistula (Acute) Impressions 1. Gross hematuria with right hydronephrosis and hydroureter - bladder stone and colovesical fistula at cystoscopy 2. Cardiomyopathy with a 25 to 30% ejection fraction 3. Coronary artery disease with [place] multivessel coronary artery disease on cardiac catheterization in August 2017 0. 4. Severe pulmonary hypertension 5. Severe biatrial enlargement with history of left atrial appendage thrombus in the past 6. Nonrheumatic aortic valve stenosis-moderate 7. Ongoing tobacco dependence 8. Suspected peripheral vascular disease 9. Chronic anticoagulation with warfarin 10. Family history of factor V deficiency in his siblings and he has never been tested so he may be hypercoagulable Colonoscopy tomorrow recheck the lab in the AM He has had increasing MCV and the B12 is low normal - folate is pending. Will check homocysteine and MMA to r/o functional B12 deficiency Code Visit Inpatient E&M: 41036 Subs Hosp L2
[2018-05-06] VITALS (14 sets, daily range): BP systolic 116–129; BP diastolic 54–85; PULSE 62–88; RESP 16–18; TEMP 36.7–38; O2SAT 92–97; BMI 29.9
--- NOTE | 2018-05-06 06:00 | NURSING ---
REPORT CALLED TO HARISH IN A/C.
[2018-05-06 06:11] LABS: Hematocrit 37.9 % (40-54); Hemoglobin 12.3 g/dl (13.0-16.5); Mean Corp Hgb Conc 32.5 g/gl (32-36); Mean Corpuscular Hgb 39.2 pg (27.0-32.0); Mean Corpuscular Volume 120.7 fL (80-94); Mean Platelet Vol. 11.7 fl (6.2-12.0); Platelet Count 139 K/mm3 (150-450); RBC Distribution Width CV 13.4 % (11.6-14.6); Red Blood Count 3.14 M/mm3 (4.6-6.2); White Blood Count 8.6 K/mm3 (4.4-11.0)
[2018-05-06 07:04] LABS: Scan Indicated on CBC? Y/N NO
--- NOTE | 2018-05-06 07:57 | OP.ENDO_ITS ---
05/06/2018 Gian Wong, [facility] [address] [place] [address] Re : Colonoscopy procedure for Abdirizak Magaña Dear Ms. Wong This procedure was performed on Sunday, May 06, 2018. My impressions and recommendations are as follows: Impressions : - Diverticulosis in the sigmoid colon and in the descending colon. - The examination was otherwise normal on direct and retroflexion views. - No specimens collected. Recommendations : - Return patient to hospital [facility] for ongoing care. - Clear liquid diet. - Continue present medications. - Repeat colonoscopy in 5 years for surveillance. - Return to my office in 2 weeks. My findings are described in the full procedure note, which is enclosed. If I can be of further assistance, please feel free to contact me at Doctor phone number(s): , Fax: [phone], Work: . Sincerely, MD Prasanth Do MD 05/06/2018 7:56:53 AM This report has been signed electronically.
[2018-05-06] MEDS: Lisinopril 5 MG Tablet PO (08:54)
[2018-05-06] MEDS: Furosemide 20 MG Tablet PO (08:54)
[2018-05-06] MEDS: Magnesium Oxide 400 MG Tablet PO (08:54)
[2018-05-06] MEDS: Carvedilol 25 MG Tablet PO ×2 (08:54→16:42)
[2018-05-06] MEDS: Gabapentin 300 MG Capsule PO ×3 (08:55→22:05)
--- NOTE | 2018-05-06 09:46 | CASEMGMT ---
According to [facility] select website, the following are in-network tertiary facilities: [facility], [place], and [facility]. Vale SMITH CM
--- NOTE | 2018-05-06 11:06 | PCM.PN.HOSP ---
Patient Problems: Active and Suspected Problems (Last Reviewed 05/04/18 @ 08:39 by Prasanth Pradhan MD) Gross hematuria (Acute) Overweight (Acute) MASOOD (obstructive sleep apnea) (Acute) non-compliant with CPAP Peripheral arterial disease (Suspected) Colovesical fistula (Acute) Subjective: Patient was seen and examined. He feels well. He is status post colonoscopy today; reportedly going for surgery tomorrow. Denied any pain or dizziness or fever or chills or palpitations. No acute events overnight. Vitals/I&O's: Vital Signs Temp Pulse Resp BP Pulse Ox 98.3 F 70 16 120/71 96 05/06/18 08:35 05/06/18 08:35 05/06/18 08:35 05/06/18 08:35 05/06/18 08:35 Oxygen Delivery Method Room Air Weight: 100.1 kg Body Mass Index (BMI) 29.9 Intake and Output for Last 24 Hours 05/04/18 05/05/18 05/06/18 23:59 23:59 23:59 Intake Total 3554 / 3554 5552 / 5552 717 / 717 Output Total 1230 / 1230 6550 / 6550 1300 / 1300 Balance 2324 / 2324 -998 / -998 -583 / -583 General: Alert, Oriented x3, Cooperative, No apparent distress HEENT: Atraumatic, PERRLA, EOMI, Normocephalic Oral: Moist Mucosa Neck: Supple, No JVD, Negative Carotid Bruits Lungs: Clear to auscultation, Normal air movement Cardiovascular: Regular rate, No murmurs Abdomen: Bowel Sounds Present, Soft, Non Tender, Non-Distended, No Hepato-splenomegaly Extremities: No edema Skin: No rashes, No breakdown Musculoskeletal: No Tenderness to Palpation of Joints or Extremities Lymphatic: No Cervical, Supraclavicular, or Inguinal Adenopathy Neurological: Cranial nerves II-XII grossly intact, Neuro grossly intact Psych/Mental Status: Normal Affect, Appropriate Laboratory Results 05/05/18 17:30: PT 14.6, INR 1.1 05/05/18 18:45: Homocysteine 10.1 05/05/18 21:30: Methylmalonic Acid Pending 05/06/18 05:15: WBC 8.6, RBC 3.14 L, Hgb 12.3 L, Hct 37.9 L, MCV 120.7 H, MCH 39.2 H, MCHC 32.5, RDW 13.4, RDW Differential 58.0 H, Plt Count 139 L, MPV 11.7 Current Medications Atorvastatin Calcium (Lipitor) 40 mg PO HS [facility] Last Admin: 05/05/18 21:50 Dose: 40 mg Bisacodyl (Dulcolax) 5 mg PO DAILY PRN PRN PRN Reason: Constipation [facility] Last Admin: 05/06/18 08:54 Dose: 25 mg Docusate Sodium (Colace) 100 mg PO BID [facility] Last Admin: 05/06/18 08:39 Dose: Not Given Furosemide (Lasix) 20 mg PO DAILY [facility] Last Admin: 05/06/18 08:54 Dose: 20 mg Gabapentin (Neurontin) 300 mg PO TID [facility] Last Admin: 05/06/18 08:55 Dose: 300 mg Sodium Chloride () 1,000 mls @ 75 mls/hr IV .[id number] [facility] Last Admin: 05/06/18 02:23 Dose: Not Given Lisinopril (Zestril) 5 mg PO DAILY [facility] Last Admin: 05/06/18 08:54 Dose: 5 mg Magnesium Hydroxide (Milk Of Magnesia) 30 ml PO DAILY PRN PRN Reason: Constipation Magnesium Oxide (Mag-Ox 400) 400 mg PO DAILY [facility] Last Admin: 05/06/18 08:54 Dose: 400 mg Morphine Sulfate () 2 - 4 mg IV Q4H PRN PRN PRN Reason: Moderate Pain (pain scale 4-5) Morphine Sulfate () 2 - 4 mg IV Q4H PRN PRN PRN Reason: Moderate Pain (pain scale 4-5) Ondansetron HCl (Zofran) 4 mg IV Q8H PRN PRN PRN Reason: Nausea Oxycodone HCl (Oxyir) 5 mg PO Q4H PRN PRN PRN Reason: Moderate Pain (pain scale 4-5) Potassium Chloride (K-Dur) 10 meq PO DAILY [facility] Last Admin: 05/06/18 08:54 Dose: 10 meq Psyllium Hydrophilic Mucilloid (Metamucil) 1 packet PO DAILY PRN PRN PRN Reason: CONSTIPATION Sodium Chloride () 5 - 15 ml IV UD PRN PRN Reason: SALINE FLUSH Zolpidem Tartrate (Ambien (Generic)) 5 mg PO QHS PRN PRN PRN Reason: INSOMNIA Medical Necessity - Tobacco Use Smoking Status: Current every day smoker Tobacco Use: Cigarettes Assessment/Plan All Active Problems (Last Reviewed 05/04/18 @ 08:39 by Prasanth Pradhan MD) Gross hematuria (Acute) Overweight (Acute) MASOOD (obstructive sleep apnea) (Acute) Colovesical fistula (Acute) 62-year-old male with past medical history of hypertension, CAD, dilated cardiomyopathy, EF 30%, nicotine dependence who was admitted on 05/02/18 with hematuria. 1. Acute gross hematuria with right hydronephrosis and hydroureter secondary to bladder stone and colovesical fistula seen on cystoscopy confirmed with CT of the abdomen and pelvis. Status post colonoscopy. General surgery consulted, going for bladder repair tomorrow. 2. CAD/Cardiomyopathy with EF 30% ejection fraction, history of left atrial appendage thrombus cardiology following, on statin, beta-bravo, Lasix, lisinopril 3.Hypertension, controlled, continue carvedilol, lisinopril, will continue to monitor vitals. 5. Chronic anticoagulation with warfarin, off anticoagulation 6. MASOOD, non-compliant with CPAP 7. DVT PPx- SCDs Code Visit Inpatient E&M: 68369 Subs Hosp L2
[2018-05-06] MEDS: 0.9% Normal Saline 1,000 ML 75 ML IV (13:42)
[2018-05-06 20:07] LABS: Folate, Hemolysate Test 371.8 ng/mL (Not Estab.); Folate, RBC (Hct) Test 46.3 % (37.5-51.0)
[2018-05-06] MEDS: Atorvastatin Calcium 40 MG Tablet PO (22:05)
[2018-05-07] VITALS (27 sets, daily range): BP systolic 91–157; BP diastolic 52–90; PULSE 62–112; RESP 15–21; TEMP 36.3–37.1; O2SAT 22–97
[2018-05-07] MEDS: 0.9% Normal Saline 1,000 ML 75 ML IV ×2 (02:40→18:51)
--- NOTE | 2018-05-07 04:18 | EKG12_ITS ---
Test Reason : AM EKG Blood Pressure : / mmHG Vent. Rate : 069 BPM Atrial Rate : 119 BPM P-R Int : 000 ms QRS Dur : 148 ms QT Int : 430 ms P-R-T Axes : 000 009 -42 degrees QTc Int : 460 ms Atrial fibrillation Right bundle branch block Abnormal ECG Confirmed by MAYNOR WOODALL, MADDISON ([id number]), map editor MIKE VELASQUEZ ([id number]) on 05/08/2018 10:08:47 AM Referred By: DR VERONICA Confirmed By:MADDISON MCGUIRE MD
[2018-05-07] MEDS: Gabapentin 300 MG Capsule PO ×2 (05:23→21:35)
[2018-05-07] MEDS: 0.9% NaCl Peripheral Flush Adult/Peds IV ×2 (05:23→18:49)
[2018-05-07 07:00] LABS: International Normalized Ratio 1.2; Prothrombin Time (Protime)PT. 15.3 SECONDS (11.7-14.9)
[2018-05-07 07:08] LABS: Absolute Lymphocyte Count 1.98 X10^3/ul (0.83-4.51); Absolute Neutrophil Count 4.3 X10^3/uL (2.0-7.7); Basophil# 0.04 X10^3/uL; Basophil% 0.5 % (0-1); Eosinophil# 0.24 X10^3/uL; Hematocrit 37.6 % (40-54); Hemoglobin 11.9 g/dl (13.0-16.5); Lymphocyte # 1.98 X10^3/ul (4.0); Lymphocyte % 24.7 % (19-41); Mean Corp Hgb Conc 31.6 g/gl (32-36); Mean Corpuscular Hgb 37.8 pg (27.0-32.0); Mean Corpuscular Volume 119.4 fL (80-94); Mean Platelet Vol. 11.2 fl (6.2-12.0); Monocyte# 1.43 X10^3/uL; Monocyte% 17.8 % (0-10); Neutrophil % 53.6 % (47-70); Platelet Count 163 K/mm3 (150-450); RBC Distribution Width SD 60.8 fl (35.1-43.9); Red Blood Count 3.15 M/mm3 (4.6-6.2)
[2018-05-07 07:17] LABS: POSITIVE COUNT NO; POSITIVE DIFFERENTIAL NO; POSITIVE MORPHOLOGY NO
[2018-05-07 07:44] LABS: Anion Gap 10 (5-15); BUN 4 mg/dL (7-18); BUN/Creat Ratio 7.1 RATIO (10-20); Calcium,Total 8.1 mg/dL (8.5-10.1); Chloride 106 mmol/L (98-107); Creatinine, Serum 0.56 mg/dL (0.70-1.30); EST Glomerular Filtration Rate 157 mL/min (>60); Est Glom Filt Rate - Afr Amer 190 mL/min (>60); Estimated Creatinine Clearance 152.04 ml/min; Glucose 93 mg/dL (74-106); Potassium 3.9 mmol/L (3.5-5.1); Sodium Level 142 mmol/L (136-145)
[2018-05-07] MEDS: Furosemide 20 MG Tablet PO (09:28)
[2018-05-07] MEDS: Magnesium Oxide 400 MG Tablet PO (09:29)
[2018-05-07] MEDS: Carvedilol 25 MG Tablet PO (09:29)
[2018-05-07] MEDS: Lisinopril 5 MG Tablet PO (09:29)
--- NOTE | 2018-05-07 11:59 | NURSING ---
Report called to Jazlyn in AC. Lee SMITH
[2018-05-07] MEDS: Bupivacaine Mpf 0.5% 30 ML VIAL (13:30)
--- NOTE | 2018-05-07 15:38 | OP.PCM_ITS ---
Problem List (1) Colovesical fistula Status: Acute Report of Operation Date of Procedure: 05/03/18 Pre-Operative Diagnosis: Colovesical fistula Post-Operative Diagnosis: Same Surgery/Procedure Performed:: Cystoscopy evacuation of blood clots, laser of a very large bladder stone, evacuation of bladder stone fragments, cystolitholapaxy. Type of Anesthesia:: General Anesthesiologist: Jaron Wilkes Specimen's removed: 1. Sigmoid colon. 2. Proximal donut incomplete. 3. Distal doughnut complete. 4. Hernia sac Estimated Blood Loss (mL): 100 cc Fluids Replaced: 2 liters lr Description of Procedure: Patient was brought into the operating room. Placed in the supine position. Under excellent general endotracheal intubation legs were placed up in stirrups the abdomen and perineal area was sterilely prepped and draped in the usual fashion. Local was injected below the umbilicus dissection was carried down to the fascia the fascia was grasped with a Ovando varies needle was placed inside the abdomen and the abdomen was insufflated to 15 torr. A 10/12 trocar was placed without difficulty to #5 trochars were placed in the midline above the umbilicus under direct visualization. Patient was then rotated from the left to the right side. I used the Enseal and mobilized the left colon all the way up to the splenic flexure releasing the splenic flexure. I had excellent hemostasis. After this I efraín my attention to the pelvis. His colovesical fis geno was just soft and I knew this was not going to be able to be done laparoscopically. I made a midline incision from the umbilicus down to the pubic bone and went to the right side of the umbilicus. I entered the fascia and used electrocautery I released an umbilical hernia and placed the omentum back into the abdominal cavity. Bookwalter retractor was then placed in the abdomen. The attachment of the colovesical fistula was right at the juncture of the sigmoid and rectum and it took quite a bit of dissecting with sharp Metzenbaum scissors for me to get all the way down. I detached it from the bladder without difficulty. I transected the sigmoid colon with a 75 linear cutter and took down the mesentery staying close to the rectum in remaining sigmoid colon. This was dense thick tissue and took quite a bit of tedious dissection with both Metzenbaum scissors and the Enseal. Once I got down to the peritoneal reflection and I was distal to the cutaneous fistula I took a 40 mm contour stapler and stapled off the sigmoid colon from the rectum. I sent the colon for permanent sectioning. I checked and the remaining sigmoid colon was going to be able to lie completely without tension into the pelvis and I felt very happy about this. We irrigated out the rectum with approximately 400 cc of Betadine irrigation. A bowel clamp was placed on the proximal sigmoid colon towels were placed into the abdomen and I cut out the staple line. A 2-0 Prolene suture was sutured to the end of the sigmoid colon in a pursestring fashion. I placed a 29 anvil in and tied the end down. I did not see any signs of buckling and I thought that I had it tied down well. The rectum was then serially dilated from 29-33 mm. The 29 stapler was then placed into the rectum and directed up to the rectal stump. The spike was then advanced and I connected the anvil onto the spike with a audible click. A malleable retractor was used then to push the tissue posteriorly on the sacrum and we brought the staple together. It was in the middle of the green line and we fired the stapler and inspecting the doughnuts the distal donut was intact in the proximal donut was not. I inspected the alex stomosis and there was a small opening on the sigmoid colon and approximately 5 mm in nature. I took 3 sutures of 3-0 silk and closed this without difficulty. I then placed water into the pelvis and checked for an air leak and no air leak was identified. Dr. Blankenship came in and inspected the bladder and decided that no suture was going to be needed secondary to the thickness of the tissue and th e fact that we had no water leaking out when he distended the bladder. And I believe this was the right choice in this setting. A Maldonado catheter was then placed back into the bladder and I checked it for good position. Clear urine was coming out. I then placed a 29 mm dilator up to the anastomosis and it was easily able to go into the anastomosis without difficulty. I tried to take a look but there was just too much stool and blood in there for me to see the anastomosis clearly and I did not feel comfortable trying to push it through. I rechecked the anastomosis 2 more times with irrigation and air and it was still airtight. Did not think that I needed to do any diverting ileostomy on this patient. I placed a small piece of Seprafilm on the staple line and then placed the omentum on top of that to protect it from the bladder. I had good hemostasis I did not feel a drain was needed at this time. I got an accurate needle and sponge count I then closed the peritoneum with an 0 Vicryl. The fascia was brought together with #1 PDS. Subcu was irrigated deep dermal stitches were used to bring the skin back together then a running 4-0 Monocryl on the skin. Steri-Strips are applied sterile dressings were applied and the patient tolerated the procedure well. - Admit VTE Documentation VTE Present on Admission: No VTE Mechan Device Prophylaxis: SCD's VTE Pharm Prophylaxis ordered?: No Reason prophylaxis not ordered:: Treatment Not Indicated
--- NOTE | 2018-05-07 16:42 | PCM.OPRPT ---
Report of Operation Date of Procedure: 05/03/18 Pre-Operative Diagnosis: Colovesical fistula Post-Operative Diagnosis: Same Surgery/Procedure Performed:: Cystoscopy Description of Surgical Findings:: 62-year-old male who underwent a resection of his colon and repair of a colovesical fistula at the time of the procedure came in to assist Dr. Pradhan did a cystoscopy we distended the bladder there was no leakage from a very small fistula site decided not to do any stitching on the fistula site that should close in the tone and will leave the catheter in. On cystoscopy and normal urethral channel prostate was normal inside the bladder severe inflammation at the site of the fistula but no leakage from the bladder into the peritoneal cavity left and right ureteral orifice were patent and open. Maldonado catheter was left in the bladder. Type of Anesthesia:: General Anesthesiologist: Jaron Wilkes Specimen's removed: 1. Sigmoid colon. 2. Proximal donut incomplete. 3. Distal doughnut complete. 4. Hernia sac Estimated Blood Loss (mL): 100 cc Fluids Replaced: 2 liters lr
--- NOTE | 2018-05-07 17:50 | COL_PTH ---
PATIENT: SABRA DAVID LOC: [facility] U#:[id number] AGE/SX: 62/M ROOM: ICU03 RE05/03/[address]: Dr. Catalina Whately MD : [id number] BED: 1 DIS: 05/24/2018 SPEC #: [id number] RECD: 05/08/18 09:40 STATUS: JJ REZander #: [id number] LAMBERTO: 05/07/18 17:[address]: Cash Kam DEPT: SURGICAL PATHOLOGY RECD BY: Daniel Tellez ENTERED: 05/08/18 10:08 SP TYPE: COLON OTHR DR: MD Dr. Tomas Villegas MD Dr. Cyril Ofori, MD Dr. Mary Catherine Sementi, DO Dr. Linda Wang, MD Mary Ciesa, [employer]-[facility] Tissues: A - Colon, NOS B - HERNIA C - Colon Donuts D - Colon Donuts Procedures: Surgery Specimen Level II Surgery Specimen Level III Surgery Specimen Level V HEADER OPERATION: Cysto, evacuation hematoma, laser PRE-OP DIAGNOSIS: Colovesical fistula TISSUE SUBMITTED: A - Sigmoid colon, B - Hernia sac, C - Proximal donut, D - Distal donut MICROSCOPIC DIAGNOSIS A. Sigmoid colon, colectomy: Diverticular disease of colon. B. Hernia sac: A piece of fibroadipose and fibroconnective tissue, consistent with hernia sac. C. Proximal donut: Colonic donut, no pathologic diagnosis. D. Distal donut: Colonic donut, no pathologic diagnosis. DESTIN:pietro 05/10/18 MICROSCOPIC DESCRIPTION Slides are reviewed. GROSS DESCRIPTION A - Received in fixative is one container labeled with the patient's name and designated sigmoid colon. The specimen consists of a segment of colon with attached pericolonic adipose tissue measuring 12 cm in length. Both resection margins are stapled. The lumen contains fecal material. Sections reveal multiple diverticula and a few of the diverticula appears to be ruptured. Also present in the container is one piece of adipose tissue with a staple measuring 2.5 x 1.5 x 0.5 cm. Also present in the container is a detached piece of colonic tissue with staple measuring 2 x 1.5 x 1 cm. Sections will be submitted after overnight fixation. / SJ:pietro 05/08/18 Sections of the pericolonic adipose tissue do not reveal any obviously enlarged lymph node. Gas Line Installer sections are submitted in six cassettes as follows: 1 - resection margin, 2-4 - diverticula, 5 - pericolonic adipose tissue, 6 - detached pieces of tissue. / SJ:pietro 05/09/18 B - Received in fixative is one container labeled with the patient's name and designated hernia sac. The specimen consists of an irregular piece of march-pink soft tissue measuring 4 x 2 x 0.5 cm. No mass lesion is identified. Gas Line Installer sections are submitted in one cassette. / SJ:pietro 05/08/18 C - Received in fixative is one container labeled with the patient's name and designated proximal donut. The specimen consists of a piece of colonic tissue measuring 3.5 x 1 x 0.5 cm. Multiple sutures are also noted. Gas Line Installer sections are submitted in one cassette. / SJ:pietro 05/08/18 D - Received in fixative is one container labeled with the patient's name and designated distal donut. The specimen consists of a piece of colonic tissue measuring 2.5 x 1.5 x 0.5 cm. Multiple jeffrey are noted. [employer] Line Installer sections are submitted in one cassette. / SJ:pietro 05/08/18 TC:5 CPT: 19708, 59861 x2, 25284
[2018-05-07] MEDS: HYDROmorphone PCA 0.2 MG/ML 100 ML BAG 20 MG IV (18:48)
[2018-05-07] MEDS: Atorvastatin Calcium 40 MG Tablet PO (21:36)
--- NOTE | 2018-05-07 22:05 | PCM.PN.HOSP ---
Patient Problems: Active and Suspected Problems (Last Reviewed 05/04/18 @ 08:39 by Prasanth Pradhan MD) Gross hematuria (Acute) Overweight (Acute) MASOOD (obstructive sleep apnea) (Acute) non-compliant with CPAP Peripheral arterial disease (Suspected) Colovesical fistula (Acute) Subjective: Patient was away for most of the day in surgery with general surgery and urology. No complains. Objective: Physical exam: General: Alert, Oriented x3, Cooperative, No apparent distress HEENT: Atraumatic, PERRLA, EOMI, Normocephalic Oral: Moist Mucosa Neck: Supple, No JVD, Negative Carotid Bruits Lungs: Clear to auscultation, Normal air movement Cardiovascular: Regular rate, No murmurs Abdomen: Bowel Sounds Present, Soft, Tenderness at incisional site, Non-Distended, No Hepato-splenomegaly Extremities: No edema Skin: No rashes, No breakdown Musculoskeletal: No Tenderness to Palpation of Joints or Extremities Lymphatic: No Cervical, Supraclavicular, or Inguinal Adenopathy Neurological: Cranial nerves II-XII grossly intact, Neuro grossly intact Psych/Mental Status: Normal Affect, Appropriate Vitals/I&O's: Vital Signs Temp Pulse Resp BP Pulse Ox 98.2 F 97 20 H 101/61 93 05/07/18 21:00 05/07/18 21:00 05/07/18 21:00 05/07/18 21:00 05/07/18 21:08 Oxygen Flow Rate (L/min) 4 Oxygen Delivery Method Nasal Cannula Weight: 100 kg Body Mass Index (BMI) 29.9 Intake and Output for Last 24 Hours 05/05/18 05/06/18 05/07/18 23:59 23:59 23:59 Intake Total 5552 / 5552 3014 / 3014 6003 / 6003 Output Total 6550 / 6550 3300 / 3300 8450 / 8450 Balance -998 / -998 -286 / -286 -2447 / -2447 Laboratory Results 05/07/18 06:35: WBC 8.0, RBC 3.15 L, Hgb 11.9 L, Hct 37.6 L, MCV 119.4 H, MCH 37.8 H, MCHC 31.6 L, RDW 14.0, RDW Differential 60.8 H, Plt Count 163, MPV 11.2, Immature Gran % (Auto) 0.400, Neut % (Auto) 53.6, Lymph % (Auto) 24.7, Jewell % (Auto) 17.8 H, Eos % (Auto) 3.0, Baso % (Auto) 0.5, Absolute Neuts (auto) 4.3, Absolute Lymphs (auto) 1.98, Total Counted Not Reportable 05/07/18 06:35: PT 15.3 H, INR 1.2 05/07/18 06:35: Sodium 142, Potassium 3.9, Chloride 106, Carbon Dioxide 26.0, Anion Gap 10, BUN 4 L, Creatinine 0.56 L, Estim Creat Clear Calc 152.04, Est GFR (MDRD) Af Amer 190, Est GFR (MDRD) Non-Af 157, BUN/Creatinine Ratio 7.1 L, Glucose 93, Calcium 8.1 L Current Medications Atorvastatin Calcium (Lipitor) 40 mg PO HS [facility] Last Admin: 05/07/18 21:36 Dose: 40 mg Bisacodyl (Dulcolax) 5 mg PO DAILY PRN PRN PRN Reason: Constipation [facility] Admin: 05/07/18 18:57 Dose: Not Given Diphenhydramine HCl (Benadryl) 12.5 - 25 mg IV Q6H PRN PRN PRN Reason: ITCHING Diphenhydramine HCl (Benadryl) 12.5 - 25 mg PO Q6H PRN PRN PRN Reason: Pruritis Docusate Sodium (Colace) 100 mg PO BID [facility] Last Admin: 05/07/18 21:48 Dose: Not Given Furosemide (Lasix) 20 mg PO DAILY [facility] Last Admin: 05/07/18 09:28 Dose: 20 mg Gabapentin (Neurontin) 300 mg PO TID [facility] Last Admin: 05/07/18 21:35 Dose: 300 mg Hydromorphone HCl (Dilaudid [facility]) 20 mg IV UD [facility]; Protocol Last Admin: 05/07/18 18:48 Dose: 20 mg Sodium Chloride () 1,000 mls @ 75 mls/hr IV .[id number] [facility] Last Admin: 05/07/18 18:51 Dose: 75 mls/hr Naloxone HCl 4 mg/ Dextrose 504 mls @ 0 mls/hr IV .Q0M PRN; Protocol PRN Reason: To maintain Resp. rate >10 Piperacillin Sod/Tazobactam (Sod 3.375 gm/ Sodium Chloride) 50 mls @ 12.5 mls/hr IV Q8 [facility] Last Admin: 05/07/18 21:35 Dose: 12.5 mls/hr Lisinopril (Zestril) 5 mg PO DAILY [facility] Last Admin: 05/07/18 09:29 Dose: 5 mg Magnesium Hydroxide (Milk Of Magnesia) 30 ml PO DAILY PRN PRN Reason: Constipation Magnesium Oxide (Mag-Ox 400) 400 mg PO DAILY [facility] Last Admin: 05/07/18 09:29 Dose: 400 mg Morphine Sulfate () 2 - 4 mg IV Q4H PRN PRN PRN Reason: Moderate Pain (pain scale 4-5) Morphine Sulfate () 2 - 4 mg IV Q4H PRN PRN PRN Reason: Moderate Pain (pain scale 4-5) Naloxone HCl (Narcan) 0.02 mg IV Q1M PRN PRN Reason: RR <10 and pt unresponsive Ondansetron HCl (Zofran) 4 mg IV Q8H PRN PRN PRN Reason: Nausea Oxycodone HCl (Oxyir) 5 mg PO Q4H PRN PRN PRN Reason: Moderate Pain (pain scale 4-5) Potassium Chloride (K-Dur) 10 meq PO DAILY [facility] Last Admin: 05/07/18 09:29 Dose: 10 meq Psyllium Hydrophilic Mucilloid (Metamucil) 1 packet PO DAILY PRN PRN PRN Reason: CONSTIPATION Sodium Chloride () 5 - 15 ml IV UD PRN PRN Reason: SALINE FLUSH Last Admin: 05/07/18 18:49 Dose: 10 ml Zolpidem Tartrate (Ambien (Generic)) 5 mg PO QHS PRN PRN PRN Reason: INSOMNIA Medical Necessity - Tobacco Use Smoking Status: Current every day smoker Tobacco Use: Cigarettes Assessment/Plan All Active Problems (Last Reviewed 05/04/18 @ 08:39 by Prasanth Pradhan MD) Gross hematuria (Acute) Overweight (Acute) MASOOD (obstructive sleep apnea) (Acute) Colovesical fistula (Acute) 62-year-old male with past medical history of hypertension, CAD, dilated cardiomyopathy, EF 30%, nicotine dependence who was admitted on 05/02/18 with hematuria. 1. POD #0, s/p colectomy for colono-vesicular fistula, on Dilaudid pain pump, will follow-up general surgery recommendations 2. Acute gross hematuria with right hydronephrosis/hydroureter secondary to bladder stone/colovesical fistula seen on cystoscopy confirmed with CT of the abdomen and pelvis. 3. CAD/Cardiomyopathy with EF 30% ejection fraction, history of left atrial appendage thrombus cardiology following, stable on statin, beta-bravo, Lasix, lisinopril 4.Hypertension, controlled, continue carvedilol, lisinopril, will continue to monitor vitals. 5. Chronic anticoagulation with warfarin, off anticoagulation 6. MASOOD, non-compliant with CPAP 7. DVT PPx- SCDs Code Visit Inpatient E&M: 32342 Subs Hosp L2
--- NOTE | 2018-05-07 23:18 | NURSING ---
this RN is taking over care for this patient at this time.
[2018-05-08] VITALS (42 sets, daily range): BP systolic 73–116; BP diastolic 50–72; PULSE 64–104; RESP 14–23; TEMP 36.5–36.9; O2SAT 91–95
[2018-05-08] MEDS: 0.9% Normal Saline 1,000 ML 75 ML IV ×2 (05:20→18:53)
[2018-05-08] MEDS: Gabapentin 300 MG Capsule PO ×3 (05:20→21:01)
[2018-05-08 06:13] LABS: Hematocrit 36.8 % (40-54); Hemoglobin 11.7 g/dl (13.0-16.5); Mean Corpuscular Volume 121.9 fL (80-94); Red Blood Count 3.02 M/mm3 (4.6-6.2); White Blood Count 13.5 K/mm3 (4.4-11.0)
[2018-05-08 06:14] LABS: Mean Corp Hgb Conc 31.8 g/gl (32-36); Mean Corpuscular Hgb 38.7 pg (27.0-32.0); Mean Platelet Vol. 10.7 fl (6.2-12.0); Platelet Count 141 K/mm3 (150-450); RBC Distribution Width CV 13.4 % (11.6-14.6); RBC Distribution Width SD 58.4 fl (35.1-43.9); Scan Indicated on CBC? Y/N NO
[2018-05-08] MEDS: 0.9% Normal Saline 1,000 ML 999 ML IV ×2 (06:22→07:27)
[2018-05-08] MEDS: Carvedilol 25 MG Tablet PO (07:57)
--- NOTE | 2018-05-08 09:50 | PCM.PN.SRG ---
Patient Problems: Active and Suspected Problems (Last Reviewed 05/04/18 @ 08:39 by Prasanth Pradhan MD) Gross hematuria (Acute) Overweight (Acute) MASOOD (obstructive sleep apnea) (Acute) non-compliant with CPAP Peripheral arterial disease (Suspected) Colovesical fistula (Acute) Subjective: Patient evaluated resting comfortably in bed. Patient notes abdominal pain is tolerable. He denies nausea, vomiting. He notes he has not been putting out urine and his blood pressure has been low. He notes he normally runs in the 100's-90's over 60's. Patient is tolerating sips and chips. He completed 1 liter bolus. - Physical Exam General: Alert, Oriented x3, Cooperative Lungs: Clear to auscultation, Normal air movement Cardiovascular: Regular rate, No murmurs Abdomen: Soft, Distended, Obese, Tender - slightly, - - Incisions intact with dressing in place. Minimal amount of drainage at the lower midline incision. This has been outlined and has not increased. Vital Signs Temp Pulse Resp BP Pulse Ox 98.2 F 100 19 H 101/64 94 05/08/18 08:35 05/08/18 08:35 05/08/18 08:35 05/08/18 08:35 05/08/18 08:35 Oxygen Flow Rate (L/min) 4 Oxygen Delivery Method Nasal Cannula Weight: 220 lb 7.396 oz Body Mass Index (BMI) 29.9 Intake and Output for Last 24 Hours 05/06/18 05/07/18 05/08/18 23:59 23:59 23:59 Intake Total 3014 / 3014 6982.7 / 6982.7 3784.4 / 3784.4 Output Total 3300 / 3300 8650 / 8650 100 / 100 Balance -286 / -286 -1667.3 / -1667.3 3684.4 / 3684.4 Laboratory Tests Past 24 Hrs 05/08/18 05:50 WBC 13.5 H RBC 3.02 L Hgb 11.7 L Hct 36.8 L MCV 121.9 H MCH 38.7 H MCHC 31.8 L RDW 13.4 RDW Differential 58.4 H Plt Count 141 L MPV 10.7 Capacity - Capacity Assessment Tool Can the patient make a choice & communicate that choice?: Yes Can the patient understand benefits, risks and alternatives?: Yes Can the patient make a logical, rational choice?: Yes Is the choice the patient makes consistent w/ their values?: Yes Medical Necessity - Tobacco Use Smoking Status: Current every day smoker Tobacco Use: Cigarettes Assessment/Plan All Active Problems (Last Reviewed 05/04/18 @ 08:39 by Prasanth Pradhan MD) Gross hematuria (Acute) Overweight (Acute) MASOOD (obstructive sleep apnea) (Acute) Colovesical fistula (Acute) I am following this patient with Dr. Pradhan S/p sigmoid colectomy and cystoscopy for colovesical fistula in conjunction with Eddy Continue hydration Labs reviewed Encourage ambulation Discussed patient with Dr. Pradhan We will continue to closely monitor this patient Code Visit Inpatient E&M: 36098 Subs Hosp L1 - No charge
[2018-05-08] MEDS: Magnesium Oxide 400 MG Tablet PO (09:51)
[2018-05-08 11:00] LABS: Folates, RBC Test 803 ng/mL (>498)
--- NOTE | 2018-05-08 14:33 | PCM.CONS.GEN ---
Problem List (1) Overweight Status: Acute (2) MASOOD (obstructive sleep apnea) Status: Acute Comment: non-compliant with CPAP (3) Peripheral arterial disease Status: Suspected (4) Colovesical fistula Status: Acute (5) Pulmonary hypertension Status: Chronic (6) Severe left ventricular systolic dysfunction Status: Chronic Comment: 30% EF in August 2017 with moderate global right ventricular systolic dysfunction, severe left atrial enlargement, left atrial appendage thrombus, severely enlarged right atrium moderate aortic valve stenosis (7) Nonrheumatic aortic (valve) stenosis Status: Chronic Comment: Moderate (8) Hypertension Status: Chronic Qualifiers: (9) senior living (current) use of anticoagulants Status: Chronic Comment: Managed by PCP, warfarin (10) Paroxysmal atrial fibrillation Status: Chronic Reason for Consult Date of Consultation: 05/08/18 Reason for Consultation: Hypotension History of Present Illness: The patient is a 62 year old M, with past medical history listed below, who presented to [facility] on 05[facility]2018 secondary to hematuria that began on 05/02/2018. Patient had denied any fevers, chills or dysuria previously. Patient never had hematuria, but was on Coumadin with an INR of 2.6 secondary to paroxysmal A. fib. Patient was noted to be bradycardic at 47 bpm, but blood pressure was adequate. Patient was saturating well on room air. Over the course of patient's hospitalization, patient was noted to have a colovesical fistula and went to surgery on 05/07/2018. Surgery for correction reportedly went well. Overnight however, patient started to have decreased blood pressures and a slight drop in hemoglobin. There was some concern for possible bleeding versus intra-abdominal perforation. There was discussion about moving patient to the intensive care unit, so critical care was consulted. Personal discussion with the surgeon yielded that patient did not have excessive blood loss and surgery went well. No hemodynamic instability was reported during the surgical operation. After evaluation, patient was given fluid boluses with improvement in blood pressure. Patient denies any change in abdominal pain and localizes pain only to the incision site. Patient denies any peritoneal type signs. Patient reports he started to feel a little lightheaded at approximately 2 AM and this was associated with decreased blood pressures. Following fluid boluses, patient states that he feels well. Patient denies any nausea or vomiting. Patient has not passed any gas at this time. Patient is unaware of any fevers or chills overnight. Review of systems otherwise negative x10 systems. Past Medical History Past Medical History (Chronic Problems): Chronic Problems (Last Reviewed 05/04/18 @ 08:39 by Prasanth Pradhan MD) Tobacco dependence (Chronic) Pulmonary hypertension (Chronic) Atherosclerotic heart disease of [place] coronary artery without angina pectoris (Chronic) Mild 25-50% stenosis mid LAD Severe left ventricular systolic dysfunction (Chronic) 30% EF in August 2017 with moderate global right ventricular systolic dysfunction, severe left atrial enlargement, left atrial appendage thrombus, severely enlarged right atrium moderate aortic valve stenosis Nonrheumatic aortic (valve) stenosis (Chronic) 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 (Chronic) senior living (current) use of anticoagulants (Chronic) Managed by PCP, warfarin Paroxysmal atrial fibrillation (Chronic) Medical History: Medical History (Last Reviewed 05/04/18 @ 08:39 by Prasanth Pradhan MD) Pulmonary hypertension (Chronic) I27.20 Atherosclerotic heart disease of [place] coronary artery without angina pectoris (Chronic) I25.10 Mild 25-50% stenosis mid LAD Severe left ventricular systolic dysfunction (Chronic) I51.9 30% EF in August 2017 with moderate global right ventricular systolic dysfunction, severe left atrial enlargement, left atrial appendage thrombus, severely enlarged right atrium moderate aortic valve stenosis Nonrheumatic aortic (valve) stenosis (Chronic) I35.0 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 (Chronic) I10 senior living (current) use of anticoagulants (Chronic) Z79.01 Managed by PCP, warfarin Paroxysmal atrial fibrillation (Chronic) I48.0 MASOOD (obstructive sleep apnea) G47.33 Bilateral edema of lower extremity R60.0 Resolved Allergies No Known Allergies Allergy (Verified 05/03/18 07:02) Home Medications: Ambulatory Orders Medication Instructions Recorded Furosemide [Lasix] 20 mg PO DAILY 04/24/14 gabapentin 300 mg capsule 300 mg PO TID 06/11/17 magnesium oxide 400 mg capsule 400 mg PO QDAY cap 06/11/17 potassium chloride ER 10 mEq 10 meq PO QDAY cap 06/11/17 capsule,extended release warfarin 5 mg tablet 5 mg PO .COMPLEX 06/11/17 aspirin 81 mg tablet,delayed 81 mg PO QDAY 08/15/17 release atorvastatin 40 mg tablet 40 mg PO QDAY #30 tab 12/14/17 Carvedilol 25 mg PO BID 05/03/18 Lisinopril [Zestril] 5 mg PO QDAY 05/03/18 Nitrofurantoin Macrocrystal 100 mg PO BID 05/03/18 [Macrodantin] Surgical History: Surgical History (Last Reviewed 05/04/18 @ 08:39 by Prasanth Pradhan MD) History of hernia repair Z98.890, Z87.19 History of laminectomy Z98.890 Surgical History: herniorrhaphy - LEft inguinal, - - He has a titanium jeremías in the right lower extremity distal to the knee. Psychiatric History: No pertinent psych hx Lives: Spouse/ Significant Other Smoking Status: Current every day smoker Tobacco Use: Cigarettes Alcohol: Occasional Drugs: None - *Family History Maternal Family History: Family History (Last Reviewed 09/20/17 @ 11:46 by Faith Singh) Mother History of DVT (deep vein thrombosis) Father Atrial fibrillation Diabetes Sister History of DVT (deep vein thrombosis) Brother History of DVT (deep vein thrombosis) Sibling Family History: Family History (Last Reviewed 09/20/17 @ 11:46 by aFith Singh) Mother History of DVT (deep vein thrombosis) Father Atrial fibrillation Diabetes Sister History of DVT (deep vein thrombosis) Brother History of DVT (deep vein thrombosis) History Items: - - Both his brother and sister have a factor V deficiency Review of Systems Comment: See HPI Patient Problems: Active and Suspected Problems (Last Reviewed 05/04/18 @ 08:39 by Prasanth Pradhan MD) Gross hematuria (Acute) Overweight (Acute) MASOOD (obstructive sleep apnea) (Acute) non-compliant with CPAP Peripheral arterial disease (Suspected) Colovesical fistula (Acute) Objective: EKGs were reviewed showing atrial fibrillation with a right bundle branch block. Patient has not had pulmonary function test previously. - Physical Exam General: Alert, Oriented x3, Cooperative, No apparent distress, - - No conversational dyspnea HEENT: Atraumatic, PERRLA, EOMI, Normocephalic, - - Scleral icterus or injection noted. Normal conjunctival. Oral: Moist Mucosa, No Gingival or Mucosal Lesions/ Ulcerations Neck: Supple, No JVD, No Nodes, Trachea Midline Lungs: No rhonchi, No wheeze, No rales, Diminished, - - Symmetric expansion. No dullness to percussion. Cardiovascular: Normal S1, Normal S2, Irregular Rate, No rub noted, No Gallop Abdomen: Soft, Bowel Sounds Not Present, Tender - Only over incision. No guarding or rebound tenderness Extremities: No clubbing, No cyanosis, No edema, Capillary Refill Less than 3 Seconds Skin: No rashes, No breakdown, Incision - Clean, dry and intact. No surrounding erythema noted. Musculoskeletal: No Tenderness to Palpation of Joints or Extremities Lymphatic: No Cervical, Supraclavicular, or Inguinal Adenopathy Neurological: Cranial nerves II-XII grossly intact, Neuro grossly intact, Motor Exam 5/5 strength throughout Psych/Mental Status: Alert and oriented to time, place, person, mood and affect Vital Signs Temp Pulse Resp BP Pulse Ox 36.5 C L 75 15 101/62 94 05/08/18 14:00 05/08/18 14:00 05/08/18 14:00 05/08/18 14:00 05/08/18 14:00 Oxygen Flow Rate (L/min) 3 Oxygen Delivery Method Nasal Cannula Weight: 100 kg Body Mass Index (BMI) 29.9 Intake and Output for Last 24 Hours 05/06/18 05/07/18 05/08/18 23:59 23:59 23:59 Intake Total 3014 / 3014 6982.7 / 6982.7 4540.4 / 4540.4 Output Total 3300 / 3300 8650 / 8650 675 / 675 Balance -286 / -286 -1667.3 / -1667.3 3865.4 / 3865.4 Laboratory Tests Past 24 Hrs 05/03/18 05/08/18 11:15 05:50 WBC 13.5 H RBC 3.02 L Hgb 11.7 L Hct 36.8 L MCV 121.9 H MCH 38.7 H MCHC 31.8 L RDW 13.4 RDW Differential 58.4 H Plt Count 141 L MPV 10.7 RBC Folate Hemolysate 371.8 RBC Folate 803 Hematocrit 46.3 Clinical Impression(s) from Imaging Studies Abdomen/Pelvis CT 05/03/18 07:41 IMPRESSION: Large bladder mass as described causing a marked degree of bladder dilatation. Air is seen within the urinary bladder. This may be related to Maldonado catheter manipulation. If not, a colovesical fistula should be ruled out. Electronically Signed: Johnny Neil MD at 9:02 EST , Service support , Chest X-Ray 05/03/18 09:37 IMPRESSION: Mild cardiomegaly. Electronically Signed: Johnny Neil MD at 10:05 EST , Service support , Abdomen/Pelvis CT 05/04/18 07:00 IMPRESSION: Evaluation was performed to evaluate for a colovesical fistula. Please note that a study prior to injection of rectal contrast was not performed. This somewhat limits evaluation. There is hyperdense material in the bladder at time of prior study May 03, 2018 which most likely represented a hematoma. On today's examination again noted is gas as well as hyperdense material within the bladder. There is intimate association with a segment of the sigmoid colon with the urinary bladder. There is a small focus of gas within the bladder at this region. Findings would be concerning for a colovesical fistula. Correlate with urinalysis. Interval placement of a Maldonado catheter. The previously noted bladder hyperdense masslike lesion has significantly decreased in size. Likely representing a large hematoma. Recommend follow-up to ensure resolution. Diverticulosis is present. There is some thickening of the sigmoid colon with some stranding concerning for diverticulitis. Infrarenal abdominal aortic aneurysm. Decreasing right hydronephrosis. Evidence of prior granulomatous disease. Bilateral nephrolithiasis. Electronically Signed: Dawood Morrison, at 7:57 EST Tel , Service support , Assessment/Plan All Active Problems (Last Reviewed 05/04/18 @ 08:39 by Prasanth Pradhan MD) Gross hematuria (Acute) Overweight (Acute) MASOOD (obstructive sleep apnea) (Acute) Colovesical fistula (Acute) RECOMMENDATIONS: 1. Monitor on stepdown status, no transfer to the intensive care unit at this time 2. Recheck electrolytes and blood counts tomorrow 3. Wean oxygen as tolerated, encourage incentive spirometer 4. Initiation of p.o. diet per surgery recommendations IMPRESSIONS: 1. Hypotension Unclear etiology at this time. Patient with documented hypotension overnight that was responsive to fluids. This would be suggestive of hypovolemic hypotension. Patient is not having any signs or symptoms of bleeding at this time. Patient does not have any peritoneal signs to suggest SBP or other abscess formation. Unclear if patient had an element of vasovagal overnight associated with an apneic event given his noncompliance with MASOOD therapy at baseline. Continue with supplemental oxygen for now. No pressors indicated. 2. Coronary artery disease/chronic systolic congestive heart failure/history of left atrial appendage thrombus Patient appears to be doing okay at this time on medical therapy. Lisinopril was held this morning secondary to the acute condition. Patient does remain on beta-blockade. 3. Acute gross hematuria secondary to colovesicular fistula POD #1 Surgery is following. Patient does not appear to have any hemorrhaging or sepsis at this time from my review of the chart. Patient does not have any peritoneal signs. 4. Paroxysmal A. fib/history of left clot/MASOOD Complicates care, management, recovery and prognosis. Encourage patient to be compliant with CPAP therapy. Code Visit Inpatient E&M: 90660 Init Hosp L2
--- NOTE | 2018-05-08 14:42 | PN_ITS ---
Patient Problems: Active and Suspected Problems (Last Reviewed 05/04/18 @ 08:39 by Prasanth Pradhan MD) Gross hematuria (Acute) Overweight (Acute) MASOOD (obstructive sleep apnea) (Acute) non-compliant with CPAP Peripheral arterial disease (Suspected) Colovesical fistula (Acute) Subjective: Patient seen and examined. He was hypotensive this morning but the patient denied any dizziness or chest pain or shortness of breath or diaphoresis. He is on the Dilaudid ENVIRONMENTAL COMPLIANCE ENGINEER upon and was medicated with more than 12 mg of morphine in PACU. Denied any worsening abdominal pain. Maldonado catheter has concentrated urine. Rest of 12 point review of systems was negative. Vitals/I&O's: Vital Signs Temp Pulse Resp BP Pulse Ox 97.7 F L 75 15 101/62 94 05/08/18 14:00 05/08/18 14:00 05/08/18 14:00 05/08/18 14:00 05/08/18 14:00 Oxygen Flow Rate (L/min) 3 Oxygen Delivery Method Nasal Cannula Weight: 100 kg Body Mass Index (BMI) 29.9 Intake and Output for Last 24 Hours 05/06/18 05/07/18 05/08/18 23:59 23:59 23:59 Intake Total 3014 / 3014 6982.7 / 6982.7 4540.4 / 4540.4 Output Total 3300 / 3300 8650 / 8650 675 / 675 Balance -286 / -286 -1667.3 / -1667.3 3865.4 / 3865.4 General: Alert, Oriented x3, Cooperative, No apparent distress, - - 2L oxygen HEENT: Atraumatic, PERRLA, EOMI, Normocephalic Oral: Moist Mucosa Neck: Supple, No JVD, Negative Carotid Bruits Lungs: Clear to auscultation, Normal air movement Cardiovascular: Regular rate, Regular Rhythm, Normal S1, Normal S2, No murmurs Abdomen: Bowel Sounds Present, Soft, Non-Distended, No Hepato-splenomegaly, Tender - over the incisional site, - - Lower midline dressing in situ, minimally solved Extremities: No edema, Capillary Refill Less than 3 Seconds Skin: No rashes Musculoskeletal: No Tenderness to Palpation of Joints or Extremities Neurological: Cranial nerves II-XII grossly intact, Neuro grossly intact Psych/Mental Status: Normal Affect, Appropriate Laboratory Results 05/03/18 11:15: RBC Folate Hemolysate 371.8, RBC Folate 803, Hematocrit 46.3 05/08/18 05:50: WBC 13.5 H, RBC 3.02 L, Hgb 11.7 L, Hct 36.8 L, MCV 121.9 H, MCH 38.7 H, MCHC 31.8 L, RDW 13.4, RDW Differential 58.4 H, Plt Count 141 L, MPV 10.7 Current Medications Atorvastatin Calcium (Lipitor) 40 mg PO HS [facility] Last Admin: 05/07/18 21:36 Dose: 40 mg Bisacodyl (Dulcolax) 5 mg PO DAILY PRN PRN PRN Reason: Constipation [facility] Admin: 05/08/18 07:57 Dose: 25 mg Diphenhydramine HCl (Benadryl) 12.5 - 25 mg IV Q6H PRN PRN PRN Reason: ITCHING Diphenhydramine HCl (Benadryl) 12.5 - 25 mg PO Q6H PRN PRN PRN Reason: Pruritis Docusate Sodium (Colace) 100 mg PO BID [facility] Last Admin: 05/08/18 07:58 Dose: Not Given Furosemide (Lasix) 20 mg PO DAILY [facility] Last Admin: 05/08/18 09:45 Dose: Not Given Gabapentin (Neurontin) 300 mg PO TID [facility] Last Admin: 05/08/18 13:46 Dose: 300 mg Hydromorphone HCl (Dilaudid Sales Team Manager) 20 mg IV UD [facility]; Protocol Last Admin: 05/07/18 18:48 Dose: 20 mg Sodium Chloride () 1,000 mls @ 75 mls/hr IV .[id number] [facility] Last Admin: 05/08/18 05:20 Dose: 75 mls/hr Naloxone HCl 4 mg/ Dextrose 504 mls @ 0 mls/hr IV .Q0M PRN; Protocol PRN Reason: To maintain Resp. rate >10 Piperacillin Sod/Tazobactam (Sod 3.375 gm/ Sodium Chloride) 50 mls @ 12.5 mls/hr IV Q8 [facility] Last Admin: 05/08/18 13:46 Dose: 12.5 mls/hr Lisinopril (Zestril) 5 mg PO DAILY [facility] Last Admin: 05/08/18 09:44 Dose: Not Given Magnesium Hydroxide (Milk Of Magnesia) 30 ml PO DAILY PRN PRN Reason: Constipation Magnesium Oxide (Mag-Ox 400) 400 mg PO DAILY [facility] Last Admin: 05/08/18 09:51 Dose: 400 mg Morphine Sulfate () 2 - 4 mg IV Q4H PRN PRN PRN Reason: Moderate Pain (pain scale 4-5) Morphine Sulfate () 2 - 4 mg IV Q4H PRN PRN PRN Reason: Moderate Pain (pain scale 4-5) Naloxone HCl (Narcan) 0.02 mg IV Q1M PRN PRN Reason: RR <10 and pt unresponsive Ondansetron HCl (Zofran) 4 mg IV Q8H PRN PRN PRN Reason: Nausea Oxycodone HCl (Oxyir) 5 mg PO Q4H PRN PRN PRN Reason: Moderate Pain (pain scale 4-5) Potassium Chloride (K-Dur) 10 meq PO DAILY [facility] Last Admin: 05/08/18 09:51 Dose: 10 meq Psyllium Hydrophilic Mucilloid (Metamucil) 1 packet PO DAILY PRN PRN PRN Reason: CONSTIPATION Sodium Chloride () 5 - 15 ml IV UD PRN PRN Reason: SALINE FLUSH Last Admin: 05/07/18 18:49 Dose: 10 ml Zolpidem Tartrate (Ambien (Generic)) 5 mg PO QHS PRN PRN PRN Reason: INSOMNIA Medical Necessity - Tobacco Use Smoking Status: Current every day smoker Tobacco Use: Cigarettes Assessment/Plan All Active Problems (Last Reviewed 05/04/18 @ 08:39 by Prasanth Pradhan MD) Gross hematuria (Acute) Overweight (Acute) MASOOD (obstructive sleep apnea) (Acute) Colovesical fistula (Acute) 62-year-old male with past medical history of hypertension, CAD, dilated cardiomyopathy, EF 30%, nicotine dependence who was admitted on 05/02/18 with hematuria. 1. Postop hypotension, improved with fluid boluses, would maintain on IV fluids, will be cautious because of underlining EF of 30% 2. POD #1, s/p colectomy for colono-vesicular fistula, found incidentally on cystoscopy. Discussed with urology, will keep Maldonado catheter in situ for about 10 days to allow fistula to heal. No repair was done intraoperatively fistula size was small. on Dilaudid pain pump, will follow-up general surgery recommendations 3. Acute gross hematuria, resolved Secondary to bladder stone/colovesical fistula seen on cystoscopy confirmed with CT of the abdomen and pelvis. 4. CAD/Cardiomyopathy with EF 30% ejection fraction, history of left atrial appendage thrombus cardiology following, stable on statin, beta-bravo, Lasix, lisinopril 5.Hypertension, controlled, will hold carvedilol, lisinopril, for now, will continue to monitor vitals. 6. Chronic anticoagulation with warfarin, off anticoagulation 7. MASOOD, non-compliant with CPAP 8. DVT PPx- SCDs 9. Disposition: POssible DC in maybe 2-3 days; depending on how patient generally does post colectomy Code Visit Inpatient E&M: 37832 Subs Hosp L2
--- NOTE | 2018-05-08 14:45 | CON.PCM_ITS ---
Problem List (1) Overweight Status: Acute (2) MASOOD (obstructive sleep apnea) Status: Acute Comment: non-compliant with CPAP (3) Peripheral arterial disease Status: Suspected (4) Colovesical fistula Status: Acute (5) Pulmonary hypertension Status: Chronic (6) Severe left ventricular systolic dysfunction Status: Chronic Comment: 30% EF in August 2017 with moderate global right ventricular systolic dysfunction, severe left atrial enlargement, left atrial appendage thrombus, severely enlarged right atrium moderate aortic valve stenosis (7) Nonrheumatic aortic (valve) stenosis Status: Chronic Comment: Moderate (8) Hypertension Status: Chronic Qualifiers: (9) MCC (current) use of anticoagulants Status: Chronic Comment: Managed by PCP, warfarin (10) Paroxysmal atrial fibrillation Status: Chronic Reason for Consult Date of Consultation: 05/08/18 Reason for Consultation: Hypotension History of Present Illness: The patient is a 62 year old M, with past medical history listed below, who presented to [facility] on 05/03/2018 secondary to hematuria that began on 05/02/2018. Patient had denied any fevers, chills or dysuria previously. Patient never had hematuria, but was on Coumadin with an INR of 2.6 secondary to paroxysmal A. fib. Patient was noted to be bradycardic at 47 bpm, but blood pressure was adequate. Patient was saturating well on room air. Over the course of patient's hospitalization, patient was noted to have a colovesical fistula and went to surgery on 05/07/2018. Surgery for correction reportedly went well. Overnight however, patient started to have decreased blood pressures and a slight drop in hemoglobin. There was some concern for possible bleeding versus intra-abdominal perforation. There was discussion about moving patient to the intensive care unit, so critical care was consulted. Personal discussion with the surgeon yielded that patient did not have excessive blood loss and surgery went well. No hemodynamic instability was reported during the surgical operation. After evaluation, patient was given fluid boluses with improvement in blood pressure. Patient denies any change in abdominal pain and localizes pain only to the incision site. Patient denies any peritoneal type signs. Patient reports he started to feel a little lightheaded at approximately 2 AM and this was associated with decreased blood pressures. Following fluid boluses, patient states that he feels well. Patient denies any nausea or vomiting. Patient has not passed any gas at this time. Patient is unaware of any fevers or chills overnight. Review of systems otherwise negative x10 systems. Past Medical History Past Medical History (Chronic Problems): Chronic Problems (Last Reviewed 05/04/18 @ 08:39 by Prasanth Pradhan MD) Tobacco dependence (Chronic) Pulmonary hypertension (Chronic) Atherosclerotic heart disease of k[place] coronary artery without angina pectoris (Chronic) Mild 25-50% stenosis mid LAD Severe left ventricular systolic dysfunction (Chronic) 30% EF in August 2017 with moderate global right ventricular systolic dysfunction, severe left atrial enlargement, left atrial appendage thrombus, severely enlarged right atrium moderate aortic valve stenosis Nonrheumatic aortic (valve) stenosis (Chronic) 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 (Chronic) MCC (current) use of anticoagulants (Chronic) Managed by PCP, warfarin Paroxysmal atrial fibrillation (Chronic) Medical History: Medical History (Last Reviewed 05/04/18 @ 08:39 by Prasanth Pradhan MD) Pulmonary hypertension (Chronic) I27.20 Atherosclerotic heart disease of k[place] coronary artery without angina pectoris (Chronic) I25.10 Mild 25-50% stenosis mid LAD Severe left ventricular systolic dysfunction (Chronic) I51.9 30% EF in August 2017 with moderate global right ventricular systolic dysfunction, severe left atrial enlargement, left atrial appendage thrombus, severely enlarged right atrium moderate aortic valve stenosis Nonrheumatic aortic (valve) stenosis (Chronic) I35.0 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 (Chronic) I10 MCC (current) use of anticoagulants (Chronic) Z79.01 Managed by PCP, warfarin Paroxysmal atrial fibrillation (Chronic) I48.0 MASOOD (obstructive sleep apnea) G47.33 Bilateral edema of lower extremity R60.0 Resolved Allergies No Known Allergies Allergy (Verified 05/03/18 07:02) Home Medications: Ambulatory Orders Medication Instructions Recorded Furosemide [Lasix] 20 mg PO DAILY 04/24/14 gabapentin 300 mg capsule 300 mg PO TID 06/11/17 magnesium oxide 400 mg capsule 400 mg PO QDAY cap 06/11/17 potassium chloride ER 10 mEq 10 meq PO QDAY cap 06/11/17 capsule,extended release warfarin 5 mg tablet 5 mg PO .COMPLEX 06/11/17 aspirin 81 mg tablet,delayed 81 mg PO QDAY 08/15/17 release atorvastatin 40 mg tablet 40 mg PO QDAY #30 tab 12/14/17 Carvedilol 25 mg PO BID 05/03/18 Lisinopril [Zestril] 5 mg PO QDAY 05/03/18 Nitrofurantoin Macrocrystal 100 mg PO BID 05/03/18 [Macrodantin] Surgical History: Surgical History (Last Reviewed 05/04/18 @ 08:39 by Prasanth Pradhan MD) History of hernia repair Z98.890, Z87.19 History of laminectomy Z98.890 Surgical History: herniorrhaphy - LEft inguinal, - - He has a titanium jeremías in the right lower extremity distal to the knee. Psychiatric History: No pertinent psych hx Lives: Spouse/ Significant Other Smoking Status: Current every day smoker Tobacco Use: Cigarettes Alcohol: Occasional Drugs: None - *Family History Maternal Family History: Family History (Last Reviewed 09/20/17 @ 11:46 by Faith Singh) Mother History of DVT (deep vein thrombosis) Father Atrial fibrillation Diabetes Sister History of DVT (deep vein thrombosis) Brother History of DVT (deep vein thrombosis) Sibling Family History: Family History (Last Reviewed 09/20/17 @ 11:46 by Faith Singh) Mother History of DVT (deep vein thrombosis) Father Atrial fibrillation Diabetes Sister History of DVT (deep vein thrombosis) Brother History of DVT (deep vein thrombosis) History Items: - - Both his brother and sister have a factor V deficiency Review of Systems Comment: See HPI Patient Problems: Active and Suspected Problems (Last Reviewed 05/04/18 @ 08:39 by Prasanth Pradhan MD) Gross hematuria (Acute) Overweight (Acute) MASOOD (obstructive sleep apnea) (Acute) non-compliant with CPAP Peripheral arterial disease (Suspected) Colovesical fistula (Acute) Objective: EKGs were reviewed showing atrial fibrillation with a right bundle branch block. Patient has not had pulmonary function test previously. - Physical Exam General: Alert, Oriented x3, Cooperative, No apparent distress, - - No conversational dyspnea HEENT: Atraumatic, PERRLA, EOMI, Normocephalic, - - Scleral icterus or injection noted. Normal conjunctival. Oral: Moist Mucosa, No Gingival or Mucosal Lesions/ Ulcerations Neck: Supple, No JVD, No Nodes, Trachea Midline Lungs: No rhonchi, No wheeze, No rales, Diminished, - - Symmetric expansion. No dullness to percussion. Cardiovascular: Normal S1, Normal S2, Irregular Rate, No rub noted, No Gallop Abdomen: Soft, Bowel Sounds Not Present, Tender - Only over incision. No guarding or rebound tenderness Extremities: No clubbing, No cyanosis, No edema, Capillary Refill Less than 3 Seconds Skin: No rashes, No breakdown, Incision - Clean, dry and intact. No surrounding erythema noted. Musculoskeletal: No Tenderness to Palpation of Joints or Extremities Lymphatic: No Cervical, Supraclavicular, or Inguinal Adenopathy Neurological: Cranial nerves II-XII grossly intact, Neuro grossly intact, Motor Exam 5/5 strength throughout Psych/Mental Status: Alert and oriented to time, place, person, mood and affect Vital Signs Temp Pulse Resp BP Pulse Ox 36.5 C L 75 15 101/62 94 05/08/18 14:00 05/08/18 14:00 05/08/18 14:00 05/08/18 14:00 05/08/18 14:00 Oxygen Flow Rate (L/min) 3 Oxygen Delivery Method Nasal Cannula Weight: 100 kg Body Mass Index (BMI) 29.9 Intake and Output for Last 24 Hours 05/06/18 05/07/18 05/08/18 23:59 23:59 23:59 Intake Total 3014 / 3014 6982.7 / 6982.7 4540.4 / 4540.4 Output Total 3300 / 3300 8650 / 8650 675 / 675 Balance -286 / -286 -1667.3 / -1667.3 3865.4 / 3865.4 Laboratory Tests Past 24 Hrs 05/03/18 05/08/18 11:15 05:50 WBC 13.5 H RBC 3.02 L Hgb 11.7 L Hct 36.8 L MCV 121.9 H MCH 38.7 H MCHC 31.8 L RDW 13.4 RDW Differential 58.4 H Plt Count 141 L MPV 10.7 RBC Folate Hemolysate 371.8 RBC Folate 803 Hematocrit 46.3 Clinical Impression(s) from Imaging Studies Abdomen/Pelvis CT 05/03/18 07:41 IMPRESSION: Large bladder mass as described causing a marked degree of bladder dilatation. Air is seen within the urinary bladder. This may be related to Maldonado catheter manipulation. If not, a colovesical fistula should be ruled out. Electronically Signed: Johnny Neil MD at 9:02 EST , Service support , Chest X-Ray 05/03/18 09:37 IMPRESSION: Mild cardiomegaly. Electronically Signed: Johnny Neil MD at 10:05 EST , Service support , Abdomen/Pelvis CT 05/04/18 07:00 IMPRESSION: Evaluation was performed to evaluate for a colovesical fistula. Please note that a study prior to injection of rectal contrast was not performed. This somewhat limits evaluation. There is hyperdense material in the bladder at time of prior study May 03, 2018 which most likely represented a hematoma. On today's examination again noted is gas as well as hyperdense material within the bladder. There is intimate association with a segment of the sigmoid colon with the urinary bladder. There is a small focus of gas within the bladder at this region. Findings would be concerning for a colovesical fistula. Correlate with urinalysis. Interval placement of a Maldonado catheter. The previously noted bladder hyperdense masslike lesion has significantly decreased in size. Likely representing a large hematoma. Recommend follow-up to ensure resolution. Diverticulosis is present. There is some thickening of the sigmoid colon with some stranding concerning for diverticulitis. Infrarenal abdominal aortic aneurysm. Decreasing right hydronephrosis. Evidence of prior granulomatous disease. Bilateral nephrolithiasis. Electronically Signed: Dawood Morrison, at 7:57 EST Tel , Service support , Assessment/Plan All Active Problems (Last Reviewed 05/04/18 @ 08:39 by Prasanth Pradhan MD) Gross hematuria (Acute) Overweight (Acute) MASOOD (obstructive sleep apnea) (Acute) Colovesical fistula (Acute) RECOMMENDATIONS: 1. Monitor on stepdown status, no transfer to the intensive care unit at this time 2. Recheck electrolytes and blood counts tomorrow 3. Wean oxygen as tolerated, encourage incentive spirometer 4. Initiation of p.o. diet per surgery recommendations IMPRESSIONS: 1. Hypotension Unclear etiology at this time. Patient with documented hypotension overnight that was responsive to fluids. This would be suggestive of hypovolemic hypotension. Patient is not having any signs or symptoms of bleeding at this time. Patient does not have any peritoneal signs to suggest SBP or other abscess formation. Unclear if patient had an element of vasovagal overnight associated with an apneic event given his noncompliance with MASOOD therapy at baseline. Continue with supplemental oxygen for now. No pressors indicated. 2. Coronary artery disease/chronic systolic congestive heart failure/history of left atrial appendage thrombus Patient appears to be doing okay at this time on medical therapy. Lisinopril was held this morning secondary to the acute condition. Patient does remain on beta-blockade. 3. Acute gross hematuria secondary to colovesicular fistula POD #1 Surgery is following. Patient does not appear to have any hemorrhaging or sepsis at this time from my review of the chart. Patient does not have any peritoneal signs. 4. Paroxysmal A. fib/history of left clot/MASOOD Complicates care, management, recovery and prognosis. Encourage patient to be compliant with CPAP therapy. Code Visit Inpatient E&M: 82161 Init Hosp L2
[2018-05-08] MEDS: Ondansetron 4 MG/2 ML Vial IV ×2 (16:37→20:57)
[2018-05-08] MEDS: Atorvastatin Calcium 40 MG Tablet PO (21:01)
[2018-05-08] MEDS: 0.9% NaCl Peripheral Flush Adult/Peds IV (21:08)
[2018-05-08] MEDS: Zolpidem Tartrate 5 MG Tablet PO (23:30)
[2018-05-09] VITALS (18 sets, daily range): BP systolic 116–147; BP diastolic 72–91; PULSE 90–122; RESP 17–21; TEMP 36.6–37.3; O2SAT 91–100
[2018-05-09] MEDS: Gabapentin 300 MG Capsule PO ×3 (06:14→21:39)
[2018-05-09 07:10] LABS: Absolute Lymphocyte Count 1.03 X10^3/ul (0.83-4.51); Absolute Neutrophil Count 10.2 X10^3/uL (2.0-7.7); Basophil# 0.01 X10^3/uL; Basophil% 0.1 % (0-1); Eosinophil# 0.02 X10^3/uL; Eosinophils% 0.2 % (0-5); Hematocrit 36.1 % (40-54); Hemoglobin 11.6 g/dl (13.0-16.5); Lymphocyte # 1.03 X10^3/ul (4.0); Lymphocyte % 8.3 % (19-41); Mean Corp Hgb Conc 32.1 g/gl (32-36); Mean Corpuscular Hgb 38.5 pg (27.0-32.0); Mean Corpuscular Volume 119.9 fL (80-94); Mean Platelet Vol. 11.2 fl (6.2-12.0); Monocyte# 1.08 X10^3/uL; Monocyte% 8.7 % (0-10); Neutrophil # 10.23 X10^3/uL (2.7-7.7); Neutrophil % 82.3 % (47-70); Platelet Count 171 K/mm3 (150-450); RBC Distribution Width CV 12.8 % (11.6-14.6); RBC Distribution Width SD 54.3 fl (35.1-43.9); Red Blood Count 3.01 M/mm3 (4.6-6.2); White Blood Count 12.4 K/mm3 (4.4-11.0)
[2018-05-09 07:20] LABS: ALB/GLOB Ratio 0.7 RATIO (0.9-2.4); AST(SGOT) 112 U/L (15-37); Alanine Aminotransfer ALT/SGPT 55 U/L (16-61); Albumin, Serum 2.5 g/dL (3.2-5.0); Alkaline Phosphatase 50 U/L (45-117); Anion Gap 10 (5-15); BUN 8 mg/dL (7-18); BUN/Creat Ratio 13.1 RATIO (10-20); Calcium,Total 8.2 mg/dL (8.5-10.1); Chloride 104 mmol/L (98-107); Creatinine, Serum 0.61 mg/dL (0.70-1.30); EST Glomerular Filtration Rate 142 mL/min (>60); Est Glom Filt Rate - Afr Amer 172 mL/min (>60); Estimated Creatinine Clearance 139.58 ml/min; Globulin 3.7 g/dL (2.2-4.2); Glucose 84 mg/dL (74-106); Potassium 3.7 mmol/L (3.5-5.1); Protein, Total 6.2 g/dL (6.4-8.2); Sodium Level 139 mmol/L (136-145)
[2018-05-09 07:28] LABS: POSITIVE COUNT NO; POSITIVE DIFFERENTIAL NO; POSITIVE MORPHOLOGY NO
[2018-05-09] MEDS: Lisinopril 5 MG Tablet PO (09:03)
[2018-05-09] MEDS: Carvedilol 25 MG Tablet PO ×2 (09:03→17:28)
[2018-05-09] MEDS: Furosemide 20 MG Tablet PO (09:03)
[2018-05-09] MEDS: Magnesium Oxide 400 MG Tablet PO (09:03)
[2018-05-09] MEDS: Docusate Sodium 100 MG Capsule PO (09:04)
[2018-05-09] MEDS: 0.9% Normal Saline 1,000 ML 75 ML IV (09:08)
--- NOTE | 2018-05-09 09:43 | PCM.PN.SRG ---
Patient Problems: Active and Suspected Problems (Last Reviewed 05/04/18 @ 08:39 by Prasanth Pradhan MD) Gross hematuria (Acute) Overweight (Acute) MASOOD (obstructive sleep apnea) (Acute) non-compliant with CPAP Peripheral arterial disease (Suspected) Colovesical fistula (Acute) Subjective: Patient is not passing flatus as of yet. No nausea no vomiting. Abdominal pain is significantly improved from yesterday. Objective: Abdomen is soft minimal tenderness is identified dressings are dry. - Physical Exam Vital Signs Temp Pulse Resp BP Pulse Ox 98 F 122 H 17 134/84 H 91 05/09/18 08:59 05/09/18 08:59 05/09/18 08:59 05/09/18 08:59 05/09/18 08:59 Oxygen Flow Rate (L/min) 3.5 Oxygen Delivery Method Nasal Cannula Weight: 220 lb 7.396 oz Body Mass Index (BMI) 29.9 Intake and Output for Last 24 Hours 05/07/18 05/08/18 05/09/18 23:59 23:59 23:59 Intake Total 6982.7 / 6982.7 5714.4 / 5714.4 951 / 951 Output Total 8650 / 8650 1050 / 1050 1000 / 1000 Balance -1667.3 / -1667.3 4664.4 / 4664.4 -49 / -49 Laboratory Tests Past 24 Hrs 05/03/18 05/09/18 05/09/18 11:15 06:55 06:55 WBC 12.4 H RBC 3.01 L Hgb 11.6 L Hct 36.1 L MCV 119.9 H MCH 38.5 H MCHC 32.1 RDW 12.8 RDW Differential 54.3 H Plt Count 171 MPV 11.2 Immature Gran % (Auto) 0.400 Neut % (Auto) 82.3 H Lymph % (Auto) 8.3 L [place] % (Auto) 8.7 Eos % (Auto) 0.2 Baso % (Auto) 0.1 Absolute Neuts (auto) 10.2 H Absolute Lymphs (auto) 1.03 Total Counted Not Reportable Sodium 139 Potassium 3.7 Chloride 104 Carbon Dioxide 25.0 Anion Gap 10 BUN 8 Creatinine 0.61 L Estim Creat Clear Calc 139.58 Est GFR (MDRD) Af Amer 172 Est GFR (MDRD) Non-Af 142 BUN/Creatinine Ratio 13.1 Glucose 84 Calcium 8.2 L Total Bilirubin 1.10 H AST 112 H ALT 55 Alkaline Phosphatase 50 Total Protein 6.2 L Albumin 2.5 L Globulin 3.7 Albumin/Globulin Ratio 0.7 L RBC Folate Hemolysate 371.8 RBC Folate 803 Hematocrit 46.3 Medical Necessity - Tobacco Use Smoking Status: Current every day smoker Tobacco Use: Cigarettes Assessment/Plan All Active Problems (Last Reviewed 05/04/18 @ 08:39 by Prasanth Pradhan MD) Gross hematuria (Acute) Overweight (Acute) MASOOD (obstructive sleep apnea) (Acute) Colovesical fistula (Acute) Postoperative day #2 Awaiting GI function 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
--- NOTE | 2018-05-09 10:45 | PCM.PROGNOTE ---
Patient Problems: Active and Suspected Problems (Last Reviewed 05/04/18 @ 08:39 by Prasanth Pradhan MD) Gross hematuria (Acute) Overweight (Acute) MASOOD (obstructive sleep apnea) (Acute) non-compliant with CPAP Peripheral arterial disease (Suspected) Colovesical fistula (Acute) Subjective: Patient did well overnight. Patient continues to report lack of flatulence. Patient reports no change in abdominal symptomatology. Patient is still requiring supplemental oxygen to maintain appropriate saturations. Patient is reporting some cough associated with the use of the incentive spirometer - Physical Exam General: Alert, Oriented x3, Cooperative, No apparent distress, - - No conversational dyspnea noted. Obese. HEENT: Atraumatic, PERRLA, EOMI, Normocephalic, - - No scleral icterus or injection noted. Oral: Moist Mucosa, No Gingival or Mucosal Lesions/ Ulcerations Neck: Supple, No JVD, No Nodes, Trachea Midline Lungs: No rhonchi, No wheeze, Diminished, Rales - Posterior bases, - - Symmetric expansion. No dullness to percussion. Cardiovascular: Regular Rhythm, Normal S1, Normal S2, Irregular Rate, No rub noted, No Gallop Abdomen: Soft, Bowel Sounds Not Present, Distended - Slightly, Tender - Over incision only Extremities: No clubbing, No cyanosis, Capillary Refill Less than 3 Seconds, Edema - Lower extremity 1+ Skin: - - No significant change compared to previous Musculoskeletal: No Tenderness to Palpation of Joints or Extremities Lymphatic: No Cervical, Supraclavicular, or Inguinal Adenopathy Neurological: Cranial nerves II-XII grossly intact, Neuro grossly intact, Motor Exam 5/5 strength throughout Psych/Mental Status: Alert and oriented to time, place, person, mood and affect Vital Signs Temp Pulse Resp BP Pulse Ox 36.6 C 122 H 17 134/84 H 91 05/09/18 08:59 05/09/18 08:59 05/09/18 08:59 05/09/18 08:59 05/09/18 08:59 Oxygen Flow Rate (L/min) 3.5 Oxygen Delivery Method Nasal Cannula Weight: 100 kg Body Mass Index (BMI) 29.9 Intake and Output for Last 24 Hours 05/07/18 05/08/18 05/09/18 23:59 23:59 23:59 Intake Total 6982.7 / 6982.7 5714.4 / 5714.4 951 / 951 Output Total 8650 / 8650 1050 / 1050 1000 / 1000 Balance -1667.3 / -1667.3 4664.4 / 4664.4 -49 / -49 Laboratory Tests Past 24 Hrs 05/03/18 05/09/18 05/09/18 11:15 06:55 06:55 WBC 12.4 H RBC 3.01 L Hgb 11.6 L Hct 36.1 L MCV 119.9 H MCH 38.5 H MCHC 32.1 RDW 12.8 RDW Differential 54.3 H Plt Count 171 MPV 11.2 Immature Gran % (Auto) 0.400 Neut % (Auto) 82.3 H Lymph % (Auto) 8.3 L [place] % (Auto) 8.7 Eos % (Auto) 0.2 Baso % (Auto) 0.1 Absolute Neuts (auto) 10.2 H Absolute Lymphs (auto) 1.03 Total Counted Not Reportable Sodium 139 Potassium 3.7 Chloride 104 Carbon Dioxide 25.0 Anion Gap 10 BUN 8 Creatinine 0.61 L Estim Creat Clear Calc 139.58 Est GFR (MDRD) Af Amer 172 Est GFR (MDRD) Non-Af 142 BUN/Creatinine Ratio 13.1 Glucose 84 Calcium 8.2 L Total Bilirubin 1.10 H AST 112 H ALT 55 Alkaline Phosphatase 50 Total Protein 6.2 L Albumin 2.5 L Globulin 3.7 Albumin/Globulin Ratio 0.7 L RBC Folate Hemolysate 371.8 RBC Folate 803 Hematocrit 46.3 Medical Necessity - Tobacco Use Smoking Status: Current every day smoker Tobacco Use: Cigarettes Assessment/Plan All Active Problems (Last Reviewed 05/04/18 @ 08:39 by Prasanth Pradhan MD) Gross hematuria (Acute) Overweight (Acute) MASOOD (obstructive sleep apnea) (Acute) Colovesical fistula (Acute) RECOMMENDATIONS: 1. Monitor in PCU, no transfer to the intensive care unit at this time 2. Recheck electrolytes and blood counts tomorrow 3. Wean oxygen as tolerated, encourage incentive spirometer 4. Initiation of p.o. diet per surgery recommendations 5. Hemodynamically stable. Will sign off from a pulmonary critical care perspective. IMPRESSIONS: 1. Hypotension Unclear etiology at this time. Patient with documented hypotension overnight that was responsive to fluids. This would be suggestive of hypovolemic hypotension. Patient is not having any signs or symptoms of bleeding at this time. H&H has remained stable for over 24 hours. Patient does not have any peritoneal signs to suggest SBP or other abscess formation. Unclear if patient had an element of vasovagal overnight associated with an apneic event given his noncompliance with MASOOD therapy at baseline. Continue with supplemental oxygen for now. No pressors indicated. 2. Coronary artery disease/chronic systolic congestive heart failure/history of left atrial appendage thrombus Patient appears to be doing okay at this time on medical therapy. Lisinopril was held this morning secondary to the acute condition. Patient does remain on beta-blockade. 3. Acute gross hematuria secondary to colovesicular fistula POD #1 Surgery is following. Patient does not appear to have any hemorrhaging or sepsis at this time from my review of the chart. Patient does not have any peritoneal signs. 4. Paroxysmal A. fib/history of left clot/MASOOD Complicates care, management, recovery and prognosis. Encourage patient to be compliant with CPAP therapy. 5. Acute hypoxic insufficiency secondary to probable atelectasis Stressed to the patient the importance of use of incentive spirometer to maintain appropriate saturations. Patient also understands that ambulating can also limit risk for DVT and improve oxygen saturations. Patient voiced understanding. Code Visit Inpatient E&M: 53164 Subs Hosp L2
--- NOTE | 2018-05-09 10:56 | PN_ITS ---
Patient Problems: Active and Suspected Problems (Last Reviewed 05/04/18 @ 08:39 by Prasanth Pradhan MD) Gross hematuria (Acute) Overweight (Acute) MASOOD (obstructive sleep apnea) (Acute) non-compliant with CPAP Peripheral arterial disease (Suspected) Colovesical fistula (Acute) Subjective: Patient was seen and examined. Blood pressures are much improved. No acute events overnight. He has no moved his bowels. He is yet to ambulate. Denies any nausea or vomiting. Objective: Physical exam: General: Alert, Oriented x3, Cooperative, No apparent distress, - - 4L oxygen HEENT: Atraumatic, PERRLA, EOMI, Normocephalic Oral: Moist Mucosa Neck: Supple, No JVD, Negative Carotid Bruits Lungs: Clear to auscultation, Normal air movement Cardiovascular: Regular rate, Regular Rhythm, Normal S1, Normal S2, No murmurs Abdomen: Bowel Sounds Present, Soft, Non-Distended, No Hepato-splenomegaly, Tender - over the incisional site, - - Lower midline dressing in situ, minimally solved Extremities: No edema, Capillary Refill Less than 3 Seconds Skin: No rashes Musculoskeletal: No Tenderness to Palpation of Joints or Extremities Neurological: Cranial nerves II-XII grossly intact, Neuro grossly intact Psych/Mental Status: Normal Affect, Appropriate Vitals/I&O's: Vital Signs Temp Pulse Resp BP Pulse Ox 98 F 122 H 17 134/84 H 91 05/09/18 08:59 05/09/18 08:59 05/09/18 08:59 05/09/18 08:59 05/09/18 08:59 Oxygen Flow Rate (L/min) 3.5 Oxygen Delivery Method Nasal Cannula Weight: 100 kg Body Mass Index (BMI) 29.9 Intake and Output for Last 24 Hours 05/07/18 05/08/18 05/09/18 23:59 23:59 23:59 Intake Total 6982.7 / 6982.7 5714.4 / 5714.4 951 / 951 Output Total 8650 / 8650 1050 / 1050 1000 / 1000 Balance -1667.3 / -1667.3 4664.4 / 4664.4 -49 / -49 Laboratory Results 05/03/18 11:15: RBC Folate Hemolysate 371.8, RBC Folate 803, Hematocrit 46.3 05/09/18 06:55: WBC 12.4 H, RBC 3.01 L, Hgb 11.6 L, Hct 36.1 L, MCV 119.9 H, MCH 38.5 H, MCHC 32.1, RDW 12.8, RDW Differential 54.3 H, Plt Count 171, MPV 11.2, Immature Gran % (Auto) 0.400, Neut % (Auto) 82.3 H, Lymph % (Auto) 8.3 L, [place] % (Auto) 8.7, Eos % (Auto) 0.2, Baso % (Auto) 0.1, Absolute Neuts (auto) 10.2 H, Absolute Lymphs (auto) 1.03, Total Counted Not Reportable 05/09/18 06:55: Sodium 139, Potassium 3.7, Chloride 104, Carbon Dioxide 25.0, Anion Gap 10, BUN 8, Creatinine 0.61 L, Estim Creat Clear Calc 139.58, Est GFR (MDRD) Af Amer 172, Est GFR (MDRD) Non-Af 142, BUN/Creatinine Ratio 13.1, Glucose 84, Calcium 8.2 L, Total Bilirubin 1.10 H, AST 112 H, ALT 55, Alkaline Phosphatase 50, Total Protein 6.2 L, Albumin 2.5 L, Globulin 3.7, Albumin/Globulin Ratio 0.7 L Current Medications Atorvastatin Calcium (Lipitor) 40 mg PO [facility] Last Admin: 05/08/18 21:01 Dose: 40 mg Bisacodyl (Dulcolax) 5 mg PO DAILY PRN PRN PRN Reason: Constipation [facility] Last Admin: 05/09/18 09:03 Dose: 25 mg Diphenhydramine HCl (Benadryl) 12.5 - 25 mg IV Q6H PRN PRN PRN Reason: ITCHING Diphenhydramine HCl (Benadryl) 12.5 - 25 mg PO Q6H PRN PRN PRN Reason: Pruritis Docusate Sodium (Colace) 100 mg PO BID [facility] Last Admin: 05/09/18 09:04 Dose: 100 mg Furosemide (Lasix) 20 mg PO DAILY [facility] Last Admin: 05/09/18 09:03 Dose: 20 mg Gabapentin (Neurontin) 300 mg PO TID [facility] Last Admin: 05/09/18 06:14 Dose: 300 mg Hydromorphone HCl (Dilaudid Scientific Informatics Leader) 20 mg IV UD [facility]; Protocol Last Admin: 05/09/18 02:53 Dose: Not Given Sodium Chloride () 1,000 mls @ 75 mls/hr IV .[id number] [facility] Last Admin: 05/09/18 09:08 Dose: 75 mls/hr Naloxone HCl 4 mg/ Dextrose 504 mls @ 0 mls/hr IV .Q0M PRN; Protocol PRN Reason: To maintain Resp. rate >10 Piperacillin Sod/Tazobactam (Sod 3.375 gm/ Sodium Chloride) 50 mls @ 12.5 mls/hr IV Q8 [facility] Last Admin: 05/09/18 06:14 Dose: 12.5 mls/hr Lisinopril (Zestril) 5 mg PO DAILY [facility] Last Admin: 05/09/18 09:03 Dose: 5 mg Magnesium Hydroxide (Milk Of Magnesia) 30 ml PO DAILY PRN PRN Reason: Constipation Magnesium Oxide (Mag-Ox 400) 400 mg PO DAILY [facility] Last Admin: 05/09/18 09:03 Dose: 400 mg Morphine Sulfate () 2 - 4 mg IV Q4H PRN PRN PRN Reason: Moderate Pain (pain scale 4-5) Morphine Sulfate () 2 - 4 mg IV Q4H PRN PRN PRN Reason: Moderate Pain (pain scale 4-5) Naloxone HCl (Narcan) 0.02 mg IV Q1M PRN PRN Reason: RR <10 and pt unresponsive Ondansetron HCl (Zofran) 4 mg IV Q6H PRN PRN PRN Reason: Nausea Oxycodone HCl (Oxyir) 5 mg PO Q4H PRN PRN PRN Reason: Moderate Pain (pain scale 4-5) Potassium Chloride (K-Dur) 10 meq PO DAILY [facility] Last Admin: 05/09/18 09:03 Dose: 10 meq Psyllium Hydrophilic Mucilloid (Metamucil) 1 packet PO DAILY PRN PRN PRN Reason: CONSTIPATION Sodium Chloride () 5 - 15 ml IV UD PRN PRN Reason: SALINE FLUSH Last Admin: 05/08/18 21:08 Dose: 10 ml Zolpidem Tartrate (Ambien (Generic)) 5 mg PO QHS PRN PRN PRN Reason: INSOMNIA Last Admin: 05/08/18 23:30 Dose: 5 mg Medical Necessity - Tobacco Use Smoking Status: Current every day smoker Tobacco Use: Cigarettes Assessment/Plan All Active Problems (Last Reviewed 05/04/18 @ 08:39 by Prasanth Pradhan MD) Gross hematuria (Acute) Overweight (Acute) MASOOD (obstructive sleep apnea) (Acute) Colovesical fistula (Acute) 62-year-old male with past medical history of hypertension, CAD, dilated cardiomyopathy, EF 30%, nicotine dependence who was admitted on 05/02/18 with hematuria. 1. Postop hypotension, resolved 2. POD #2, s/p colectomy for colono-vesicular fistula, found incidentally on cystoscopy. Discussed with urology, will keep Maldonado catheter in situ for about 10 days to allow fistula to heal. No repair was done intraoperatively fistula size was small. Pain is fairly controlled on oxycodone, prn morphine, will follow-up general surgery recommendations 3. Acute gross hematuria, resolved Secondary to bladder stone/colovesical fistula seen on cystoscopy confirmed with CT of the abdomen and pelvis. 4. CAD/Cardiomyopathy with EF 30% ejection fraction, history of left atrial appendage thrombus cardiology following, stable on statin, beta-bravo, Lasix, lisinopril 5.Hypertension, controlled, will continue on carvedilol, lisinopril, with holdi ng parameters will continue to monitor vitals. 6. Chronic anticoagulation with warfarin, off anticoagulation 7. MASOOD, non-compliant with CPAP 8. DVT PPx- SCDs 9. Disposition: POssible DC in maybe 2-3 days; depending on how patient generally does post colectomy Code Visit Inpatient E&M: 62429 Subs Hosp L2
[2018-05-09] MEDS: Atorvastatin Calcium 40 MG Tablet PO (21:39)
[2018-05-09] MEDS: oxyCODONE 5 MG Tablet PO (21:43)
[2018-05-09] MEDS: Zolpidem Tartrate 5 MG Tablet PO (21:43)
[2018-05-09] MEDS: 0.9% Normal Saline 1,000 ML 50 ML IV (21:48)
[2018-05-10] VITALS (15 sets, daily range): BP systolic 100–131; BP diastolic 70–82; PULSE 82–110; RESP 15–21; TEMP 36.6–37.3; O2SAT 92–95
--- NOTE | 2018-05-10 05:55 | RAD_ITS ---
STUDY: X-RAY CHEST REASON FOR EXAM: Male, 62 years old. Shortness of breath. TECHNIQUE: Single AP portable view of the chest. COMPARISON: Comparison is made with prior study dated May 03, 2018. FINDINGS: EKG electrodes are seen. There now is evidence of atelectasis and/or infiltrates at the lung bases worse on the left side. Follow-up is recommended. Blunting of the left costophrenic angle. There is mild cardiac enlargement. Normal mediastinum and alec. Normal visualized pulmonary arteries. There is atherosclerotic calcification of the aortic arch with tortuosity. There are diffuse degenerative changes of the visualized thoracic spine. Normal visualized ribs, clavicles, and shoulders. There is no demonstrated abnormality of the visualized soft tissue structures of the upper abdomen. RAD/Chest 1 View (Portable) IMPRESSION: Atelectasis and/or infiltrates at the lung bases worse on the left side with blunting of left costophrenic angle. Electronically Signed: Johnny Neil MD at 9:43 EST , Service support ,
[2018-05-10] MEDS: Gabapentin 300 MG Capsule PO ×3 (06:01→21:44)
[2018-05-10 08:33] LABS: Absolute Lymphocyte Count 1.21 X10^3/ul (0.83-4.51); Absolute Neutrophil Count 9.1 X10^3/uL (2.0-7.7); Basophil# 0.02 X10^3/uL; Basophil% 0.2 % (0-1); Eosinophil# 0.16 X10^3/uL; Eosinophils% 1.4 % (0-5); Hematocrit 35.1 % (40-54); Hemoglobin 11.3 g/dl (13.0-16.5); Lymphocyte # 1.21 X10^3/ul (4.0); Lymphocyte % 10.3 % (19-41); Mean Corp Hgb Conc 32.2 g/gl (32-36); Mean Corpuscular Hgb 37.8 pg (27.0-32.0); Mean Corpuscular Volume 117.4 fL (80-94); Mean Platelet Vol. 10.7 fl (6.2-12.0); Monocyte# 1.22 X10^3/uL; Monocyte% 10.4 % (0-10); Neutrophil # 9.06 X10^3/uL (2.7-7.7); Neutrophil % 77.3 % (47-70); Platelet Count 239 K/mm3 (150-450); RBC Distribution Width CV 13.7 % (11.6-14.6); RBC Distribution Width SD 58.2 fl (35.1-43.9); Red Blood Count 2.99 M/mm3 (4.6-6.2); White Blood Count 11.7 K/mm3 (4.4-11.0)
[2018-05-10 08:34] LABS: POSITIVE COUNT NO; POSITIVE DIFFERENTIAL NO; POSITIVE MORPHOLOGY NO
[2018-05-10 08:47] LABS: ALB/GLOB Ratio 0.6 RATIO (0.9-2.4); AST(SGOT) 63 U/L (15-37); Alanine Aminotransfer ALT/SGPT 45 U/L (16-61); Albumin, Serum 2.2 g/dL (3.2-5.0); Alkaline Phosphatase 50 U/L (45-117); Anion Gap 6 (5-15); BUN 9 mg/dL (7-18); BUN/Creat Ratio 16.2 RATIO (10-20); Chloride 105 mmol/L (98-107); Creatinine, Serum 0.56 mg/dL (0.70-1.30); EST Glomerular Filtration Rate 159 mL/min (>60); Est Glom Filt Rate - Afr Amer 192 mL/min (>60); Estimated Creatinine Clearance 152.04 ml/min; Globulin 3.6 g/dL (2.2-4.2); Glucose 123 mg/dL (74-106); Potassium 3.9 mmol/L (3.5-5.1); Protein, Total 5.8 g/dL (6.4-8.2); Sodium Level 140 mmol/L (136-145)
[2018-05-10] MEDS: Carvedilol 25 MG Tablet PO ×2 (09:19→17:04)
[2018-05-10] MEDS: Magnesium Oxide 400 MG Tablet PO (09:20)
[2018-05-10] MEDS: Docusate Sodium 100 MG Capsule PO (09:20)
[2018-05-10] MEDS: Furosemide 20 MG Tablet 40 MG PO (09:21)
[2018-05-10] MEDS: Lisinopril 5 MG Tablet PO (09:21)
[2018-05-10] MEDS: oxyCODONE 5 MG Tablet PO ×3 (09:22→21:45)
[2018-05-10] MEDS: Ipratropium/Albuterol Sulfate 3 ML AMPUL.NEB INHALATION ×3 (10:49→19:09)
--- NOTE | 2018-05-10 13:14 | PCM.PN.HOSP ---
Patient Problems: Active and Suspected Problems (Last Reviewed 05/04/18 @ 08:39 by Prasanth Pradhan MD) Gross hematuria (Acute) Overweight (Acute) MASOOD (obstructive sleep apnea) (Acute) non-compliant with CPAP Peripheral arterial disease (Suspected) Colovesical fistula (Acute) Subjective: Patient was seen and examined. He has had bowel movements. He is ambulating very well. He is on clear liquid diet. Denied any fever or chills. Generally feels improved. Objective: Physical exam: General: Alert, Oriented x3, Cooperative, No apparent distress, - - 4L oxygen HEENT: Atraumatic, PERRLA, EOMI, Normocephalic Oral: Moist Mucosa Neck: Supple, No JVD, Negative Carotid Bruits Lungs: Clear to auscultation, Normal air movement Cardiovascular: Regular rate, Regular Rhythm, Normal S1, Normal S2, No murmurs Abdomen: Bowel Sounds Present, Soft, Non-Distended, No Hepato-splenomegaly, Tender - over the incisional site, - - Lower midline dressing in situ, minimally solved Extremities: No edema, Capillary Refill Less than 3 Seconds Skin: No rashes Musculoskeletal: No Tenderness to Palpation of Joints or Extremities Neurological: Cranial nerves II-XII grossly intact, Neuro grossly intact Psych/Mental Status: Normal Affect, Appropriate Vitals/I&O's: Vital Signs Temp Pulse Resp BP Pulse Ox 97.8 F 100 18 111/75 92 05/10/18 09:00 05/10/18 10:49 05/10/18 10:49 05/10/18 09:00 05/10/18 09:00 Oxygen Flow Rate (L/min) 4 Oxygen Delivery Method Nasal Cannula Weight: 100 kg Body Mass Index (BMI) 29.9 Intake and Output for Last 24 Hours 05/08/18 05/09/18 05/10/18 23:59 23:59 23:59 Intake Total 5714.4 / 5714.4 3146 / 3146 465 / 465 Output Total 1050 / 1050 1900 / 1900 275 / 275 Balance 4664.4 / 4664.4 1246 / 1246 190 / 190 Laboratory Results 05/05/18 21:30: Methylmalonic Acid 05/10/18 08:02: WBC 11.7 H, RBC 2.99 L, Hgb 11.3 L, Hct 35.1 L, MCV 117.4 H, MCH 37.8 H, MCHC 32.2, RDW 13.7, RDW Differential 58.2 H, Plt Count 239, MPV 10.7, Immature Gran % (Auto) 0.400, Neut % (Auto) 77.3 H, Lymph % (Auto) 10.3 L, [place] % (Auto) 10.4 H, Eos % (Auto) 1.4, Baso % (Auto) 0.2, Absolute Neuts (auto) 9.1 H, Absolute Lymphs (auto) 1.21, Total Counted Not Reportable 05/10/18 08:02: Sodium 140, Potassium 3.9, Chloride 105, Carbon Dioxide 29.0, Anion Gap 6, BUN 9, Creatinine 0.56 L, Estim Creat Clear Calc 152.04, Est GFR (MDRD) Af Amer 192, Est GFR (MDRD) Non-Af 159, BUN/Creatinine Ratio 16.2, Glucose 123 H, Calcium 8.0 L, Total Bilirubin 0.80, AST 63 H, ALT 45, Alkaline Phosphatase 50, Total Protein 5.8 L, Albumin 2.2 L, Globulin 3.6, Albumin/Globulin Ratio 0.6 L Current Medications Albuterol/Ipratropium (Duoneb) 3 ml INHALATION Q4H.RT [facility] Last Admin: 05/10/18 10:49 Dose: 3 ml Atorvastatin Calcium (Lipitor) 40 mg PO HS [facility] Last Admin: 05/09/18 21:39 Dose: 40 mg Bisacodyl (Dulcolax) 5 mg PO DAILY PRN PRN PRN Reason: Constipation [facility] Last Admin: 05/10/18 09:19 Dose: 25 mg Docusate Sodium (Colace) 100 mg PO BID [facility] Last Admin: 05/10/18 09:20 Dose: 100 mg Furosemide (Lasix) 40 mg PO DAILY [facility] Last Admin: 05/10/18 09:21 Dose: 40 mg Furosemide (Lasix) 20 mg IV X1 ONE Stop: 05/10/18 13:14 Gabapentin (Neurontin) 300 mg PO TID [facility] Last Admin: 05/10/18 06:01 Dose: 300 mg Piperacillin Sod/Tazobactam (Sod 3.375 gm/ Sodium Chloride) 50 mls @ 12.5 mls/hr IV Q8 [facility] Last Admin: 05/10/18 06:01 Dose: 12.5 mls/hr Lisinopril (Zestril) 5 mg PO DAILY [facility] Last Admin: 05/10/18 09:21 Dose: 5 mg Magnesium Hydroxide (Milk Of Magnesia) 30 ml PO DAILY PRN PRN Reason: Constipation Magnesium Oxide (Mag-Ox 400) 400 mg PO DAILY [facility] Last Admin: 05/10/18 09:20 Dose: 400 mg Nutritional Formula (Lactose Free) (Ensure Clear) 120 ml PO 4X/DAY [facility] Last Admin: 05/10/18 09:24 Dose: 120 ml Ondansetron HCl (Zofran) 4 mg IV Q6H PRN PRN PRN Reason: Nausea Oxycodone HCl (Oxyir) 5 mg PO Q4H PRN PRN PRN Reason: Moderate Pain (pain scale 4-5) Last Admin: 05/10/18 09:22 Dose: 5 mg Potassium Chloride (K-Dur) 10 meq PO DAILY [facility] Last Admin: 05/10/18 09:20 Dose: 10 meq Psyllium Hydrophilic Mucilloid (Metamucil) 1 packet PO DAILY PRN PRN PRN Reason: CONSTIPATION Sodium Chloride () 5 - 15 ml IV UD PRN PRN Reason: SALINE FLUSH Last Admin: 05/08/18 21:08 Dose: 10 ml Zolpidem Tartrate (Ambien (Generic)) 5 mg PO QHS PRN PRN PRN Reason: INSOMNIA Last Admin: 05/09/18 21:43 Dose: 5 mg Medical Necessity - Tobacco Use Smoking Status: Current every day smoker Tobacco Use: Cigarettes Assessment/Plan All Active Problems (Last Reviewed 05/04/18 @ 08:39 by Prasanth Pradhan MD) Gross hematuria (Acute) Overweight (Acute) MASOOD (obstructive sleep apnea) (Acute) Colovesical fistula (Acute) 62-year-old male with past medical history of hypertension, CAD, dilated cardiomyopathy, EF 30%, nicotine dependence who was admitted on 05/02/18 with hematuria. 1. Postop hypotension, resolved 2. POD #3, s/p colectomy for colo-vesicular fistula, found incidentally on cystoscopy. Improving, on clear liquid diet Discussed with urology, will keep Maldonado catheter in situ for about 10 days to allow fistula to heal. No repair was done intraoperatively fistula size was small. Pain is fairly controlled on oxycodone, prn morphine, will follow-up general surgery recommendations 3. Acute gross hematuria, resolved Secondary to bladder stone/colovesical fistula seen on cystoscopy confirmed with CT of the abdomen and pelvis. 4. CAD/Cardiomyopathy with EF 30% ejection fraction, history of left atrial appendage thrombus cardiology following, stable on statin, beta-bravo, Lasix, lisinopril 5.Hypertension, controlled, will continue on carvedilol, lisinopril, with holding parameters will continue to monitor vitals. 6. Chronic anticoagulation with warfarin, off anticoagulation 7. MASOOD, non-compliant with CPAP 8. DVT PPx- SCDs 9. Disposition: Possible DC in 1-2 days pending general surgery recommendation Code Visit Inpatient E&M: 63504 Subs Hosp L2
[2018-05-10] MEDS: Furosemide 20 MG/2 ML VIAL IV (13:43)
[2018-05-10] MEDS: Atorvastatin Calcium 40 MG Tablet PO (21:45)
[2018-05-10] MEDS: Zolpidem Tartrate 5 MG Tablet PO (21:45)
[2018-05-11] VITALS (21 sets, daily range): BP systolic 98–130; BP diastolic 63–89; PULSE 72–112; RESP 16–18; TEMP 36.6–37.3; O2SAT 89–99
[2018-05-11] MEDS: oxyCODONE 5 MG Tablet PO ×2 (04:03→14:36)
[2018-05-11] MEDS: Gabapentin 300 MG Capsule PO ×3 (06:02→22:26)
[2018-05-11 07:02] LABS: Absolute Neutrophil Count 7.4 X10^3/uL (2.0-7.7); Basophil# 0.03 X10^3/uL; Basophil% 0.3 % (0-1); Eosinophil# 0.31 X10^3/uL; Hematocrit 34.9 % (40-54); Hemoglobin 11.1 g/dl (13.0-16.5); Lymphocyte % 11.8 % (19-41); Mean Corp Hgb Conc 31.8 g/gl (32-36); Mean Corpuscular Hgb 37.5 pg (27.0-32.0); Mean Corpuscular Volume 117.9 fL (80-94); Monocyte# 1.19 X10^3/uL; Monocyte% 11.7 % (0-10); Neutrophil # 7.41 X10^3/uL (2.7-7.7); Neutrophil % 72.6 % (47-70); Platelet Count 257 K/mm3 (150-450); RBC Distribution Width CV 13.9 % (11.6-14.6); RBC Distribution Width SD 60.2 fl (35.1-43.9); Red Blood Count 2.96 M/mm3 (4.6-6.2); White Blood Count 10.2 K/mm3 (4.4-11.0)
[2018-05-11] MEDS: Ipratropium/Albuterol Sulfate 3 ML AMPUL.NEB INHALATION ×5 (07:02→23:34)
[2018-05-11 07:05] LABS: POSITIVE COUNT NO; POSITIVE DIFFERENTIAL NO; POSITIVE MORPHOLOGY NO
[2018-05-11 07:13] LABS: Anion Gap 7 (5-15); BUN 6 mg/dL (7-18); BUN/Creat Ratio 10.6 RATIO (10-20); Chloride 101 mmol/L (98-107); Creatinine, Serum 0.57 mg/dL (0.70-1.30); EST Glomerular Filtration Rate 155 mL/min (>60); Est Glom Filt Rate - Afr Amer 188 mL/min (>60); Estimated Creatinine Clearance 149.38 ml/min; Glucose 104 mg/dL (74-106); Potassium 3.2 mmol/L (3.5-5.1); Sodium Level 139 mmol/L (136-145)
[2018-05-11] MEDS: Carvedilol 25 MG Tablet PO ×2 (08:17→17:19)
--- NOTE | 2018-05-11 08:41 | PCM.PN.SRG ---
Patient Problems: Active and Suspected Problems (Last Reviewed 05/04/18 @ 08:39 by Prasanth Pradhan MD) Gross hematuria (Acute) Overweight (Acute) MASOOD (obstructive sleep apnea) (Acute) non-compliant with CPAP Peripheral arterial disease (Suspected) Colovesical fistula (Acute) Subjective: Patient is tolerating clears states he has minimal nausea and had small amount of flatus, been up in the chair and also ambulating couple times in the [place]. - Physical Exam General: Alert, Oriented x3, Cooperative, No apparent distress HEENT: Atraumatic Lungs: Normal air movement Cardiovascular: Regular rate Abdomen: Soft, Distended - Moderate, Tender - Appropriate near incision, no peritoneal signs, incision clean dry and intact with Steri-Strips Extremities: No clubbing, No cyanosis, No edema Vital Signs Temp Pulse Resp BP Pulse Ox 97.8 F 100 16 130/89 H 93 05/11/18 06:45 05/11/18 07:11 05/11/18 07:02 05/11/18 06:45 05/11/18 08:00 Oxygen Flow Rate (L/min) 3.5 Oxygen Delivery Method Nasal Cannula Weight: 220 lb 7.396 oz Body Mass Index (BMI) 29.9 Intake and Output for Last 24 Hours 05/09/18 05/10/18 05/11/18 23:59 23:59 23:59 Intake Total 3146 / 3146 2282.7 / 2282.7 204.8 / 204.8 Output Total 1900 / 1900 2175 / 2175 450 / 450 Balance 1246 / 1246 107.7 / 107.7 -245.2 / -245.2 Laboratory Tests Past 24 Hrs 05/05/18 05/10/18 05/11/18 21:30 08:02 05:41 WBC 10.2 RBC 2.96 L Hgb 11.1 L Hct 34.9 L MCV 117.9 H MCH 37.5 H MCHC 31.8 L RDW 13.9 RDW Differential 60.2 H Plt Count 257 MPV 11.0 Immature Gran % (Auto) 0.600 Neut % (Auto) 72.6 H Lymph % (Auto) 11.8 L [place] % (Auto) 11.7 H Eos % (Auto) 3.0 Baso % (Auto) 0.3 Absolute Neuts (auto) 7.4 Absolute Lymphs (auto) 1.20 Total Counted Not Reportable Sodium 140 Potassium 3.9 Chloride 105 Carbon Dioxide 29.0 Anion Gap 6 BUN 9 Creatinine 0.56 L Estim Creat Clear Calc 152.04 Est GFR (MDRD) Af Amer 192 Est GFR (MDRD) Non-Af 159 BUN/Creatinine Ratio 16.2 Glucose 123 H Calcium 8.0 L Total Bilirubin 0.80 AST 63 H ALT 45 Alkaline Phosphatase 50 Total Protein 5.8 L Albumin 2.2 L Globulin 3.6 Albumin/Globulin Ratio 0.6 L Methylmalonic Acid 05/11/18 05:41 WBC RBC Hgb Hct MCV MCH MCHC RDW RDW Differential Plt Count MPV Immature Gran % (Auto) Neut % (Auto) Lymph % (Auto) [place] % (Auto) Eos % (Auto) Baso % (Auto) Absolute Neuts (auto) Absolute Lymphs (auto) Total Counted Sodium 139 Potassium 3.2 L Chloride 101 Carbon Dioxide 31.0 Anion Gap 7 BUN 6 L Creatinine 0.57 L Estim Creat Clear Calc 149.38 Est GFR (MDRD) Af Amer 188 Est GFR (MDRD) Non-Af 155 BUN/Creatinine Ratio 10.6 Glucose 104 Calcium 8.0 L Total Bilirubin AST ALT Alkaline Phosphatase Total Protein Albumin Globulin Albumin/Globulin Ratio Methylmalonic Acid Medical Necessity - Tobacco Use Smoking Status: Current every day smoker Tobacco Use: Cigarettes Assessment/Plan All Active Problems (Last Reviewed 05/04/18 @ 08:39 by Prasanth Pradhan MD) Gross hematuria (Acute) Overweight (Acute) MASOOD (obstructive sleep apnea) (Acute) Colovesical fistula (Acute) 1. Continue clears until increased bowel function 2. Continue ambulation/up to chair 3. Continue Maldonado for I's and O's 4. Hypokalemia replaced per primary Izabel Evans M.D. Pager: [phone] [facility] [address] [place] [address], Outpatient [place], [address] [place] [id number] Office: [phone]
--- NOTE | 2018-05-11 08:44 | PN.SURG_ITS ---
Patient Problems: Active and Suspected Problems (Last Reviewed 05/04/18 @ 08:39 by Prasanth Pradhan MD) Gross hematuria (Acute) Overweight (Acute) MASOOD (obstructive sleep apnea) (Acute) non-compliant with CPAP Peripheral arterial disease (Suspected) Colovesical fistula (Acute) Subjective: Patient is tolerating clears states he has minimal nausea and had small amount of flatus, been up in the chair and also ambulating couple times in the [place]. - Physical Exam General: Alert, Oriented x3, Cooperative, No apparent distress HEENT: Atraumatic Lungs: Normal air movement Cardiovascular: Regular rate Abdomen: Soft, Distended - Moderate, Tender - Appropriate near incision, no peritoneal signs, incision clean dry and intact with Steri-Strips Extremities: No clubbing, No cyanosis, No edema Vital Signs Temp Pulse Resp BP Pulse Ox 97.8 F 100 16 130/89 H 93 05/11/18 06:45 05/11/18 07:11 05/11/18 07:02 05/11/18 06:45 05/11/18 08:00 Oxygen Flow Rate (L/min) 3.5 Oxygen Delivery Method Nasal Cannula Weight: 220 lb 7.396 oz Body Mass Index (BMI) 29.9 Intake and Output for Last 24 Hours 05/09/18 05/10/18 05/11/18 23:59 23:59 23:59 Intake Total 3146 / 3146 2282.7 / 2282.7 204.8 / 204.8 Output Total 1900 / 1900 2175 / 2175 450 / 450 Balance 1246 / 1246 107.7 / 107.7 -245.2 / -245.2 Laboratory Tests Past 24 Hrs 05/05/18 05/10/18 05/11/18 21:30 08:02 05:41 WBC 10.2 RBC 2.96 L Hgb 11.1 L Hct 34.9 L MCV 117.9 H MCH 37.5 H MCHC 31.8 L RDW 13.9 RDW Differential 60.2 H Plt Count 257 MPV 11.0 Immature Gran % (Auto) 0.600 Neut % (Auto) 72.6 H Lymph % (Auto) 11.8 L [place] % (Auto) 11.7 H Eos % (Auto) 3.0 Baso % (Auto) 0.3 Absolute Neuts (auto) 7.4 Absolute Lymphs (auto) 1.20 Total Counted Not Reportable Sodium 140 Potassium 3.9 Chloride 105 Carbon Dioxide 29.0 Anion Gap 6 BUN 9 Creatinine 0.56 L Estim Creat Clear Calc 152.04 Est GFR (MDRD) Af Amer 192 Est GFR (MDRD) Non-Af 159 BUN/Creatinine Ratio 16.2 Glucose 123 H Calcium 8.0 L Total Bilirubin 0.80 AST 63 H ALT 45 Alkaline Phosphatase 50 Total Protein 5.8 L Albumin 2.2 L Globulin 3.6 Albumin/Globulin Ratio 0.6 L Methylmalonic Acid 05/11/18 05:41 WBC RBC Hgb Hct MCV MCH MCHC RDW RDW Differential Plt Count MPV Immature Gran % (Auto) Neut % (Auto) Lymph % (Auto) [place] % (Auto) Eos % (Auto) Baso % (Auto) Absolute Neuts (auto) Absolute Lymphs (auto) Total Counted Sodium 139 Potassium 3.2 L Chloride 101 Carbon Dioxide 31.0 Anion Gap 7 BUN 6 L Creatinine 0.57 L Estim Creat Clear Calc 149.38 Est GFR (MDRD) Af Amer 188 Est GFR (MDRD) Non-Af 155 BUN/Creatinine Ratio 10.6 Glucose 104 Calcium 8.0 L Total Bilirubin AST ALT Alkaline Phosphatase Total Protein Albumin Globulin Albumin/Globulin Ratio Methylmalonic Acid Medical Necessity - Tobacco Use Smoking Status: Current every day smoker Tobacco Use: Cigarettes Assessment/Plan All Active Problems (Last Reviewed 05/04/18 @ 08:39 by Prasanth Pradhan MD) Gross hematuria (Acute) Overweight (Acute) MASOOD (obstructive sleep apnea) (Acute) Colovesical fistula (Acute) 1. Continue clears until increased bowel function 2. Continue ambulation/up to chair 3. Continue Maldonado for I's and O's 4. Hypokalemia replaced per primary Izabel Evans M.D. Pager: [phone] [facility] [address] [place] [address], Outpatient [place], [address] [place] [id number] Office: [phone]
[2018-05-11] MEDS: Lisinopril 5 MG Tablet PO (09:28)
[2018-05-11] MEDS: Magnesium Oxide 400 MG Tablet PO (09:28)
[2018-05-11] MEDS: Furosemide 20 MG Tablet 40 MG PO (09:28)
--- NOTE | 2018-05-11 13:16 | NURSING ---
student nurse charting reviewed.
--- NOTE | 2018-05-11 14:28 | VDLE_ITS ---
Reason For Study: swelling RIGHT LEFT CFV is compressible, spontaneous, phasic, GSV is normal. competent and demonstrates normal CFV is compressible, spontaneous, phasic, augmentation. competent, and demonstrates normal Procedure augmentation. Exam performed portable in patient room. FV is compressible, spontaneous, phasic, The exam was diagnostic. competent and demonstrates normal A preliminary report was called and/or faxed augmentation. to Joselin SMITH. POP V is compressible, spontaneous, phasic, competent and demonstrates normal augmentation. T/P Trunk is compressible. PTV is compressible. LT PerV is compressible. Gastroc V is dilated and noncompressible. Interpretation Summary Acute deep venous thrombosis left gastrocnemius vein. No evidence for proximal progression Patent and compressible left great saphenous vein Normal flow patterns right common femoral vein Ordering Physician: Catalina Whatley Performed By: Gustavo Fung RVT
[2018-05-11 15:43] LABS: International Normalized Ratio 1.3; Prothrombin Time (Protime)PT. 16.6 SECONDS (11.7-14.9)
--- NOTE | 2018-05-11 17:04 | PCM.PN.HOSP ---
Patient Problems: Active and Suspected Problems (Last Reviewed 05/04/18 @ 08:39 by Prasanth Pradhan MD) Gross hematuria (Acute) Overweight (Acute) MASOOD (obstructive sleep apnea) (Acute) non-compliant with CPAP Peripheral arterial disease (Suspected) Colovesical fistula (Acute) Subjective: Patient are seen and examined. Objective: Physical exam: General: Alert, Oriented x3, Cooperative, No apparent distress, - - 4L oxygen HEENT: Atraumatic, PERRLA, EOMI, Normocephalic Oral: Moist Mucosa Neck: Supple, No JVD, Negative Carotid Bruits Lungs: Clear to auscultation, Normal air movement Cardiovascular: Regular rate, Regular Rhythm, Normal S1, Normal S2, No murmurs Abdomen: Bowel Sounds Present, Soft, Non-Distended, No Hepato-splenomegaly, Tender - over the incisional site, - - Lower midline dressing in situ, minimally solved Extremities: No edema, Capillary Refill Less than 3 Seconds Skin: No rashes Musculoskeletal: No Tenderness to Palpation of Joints or Extremities Neurological: Cranial nerves II-XII grossly intact, Neuro grossly intact Psych/Mental Status: Normal Affect, Appropriate Vitals/I&O's: Vital Signs Temp Pulse Resp BP Pulse Ox 97.9 F 110 H 16 129/86 H 94 05/11/18 12:09 05/11/18 15:06 05/11/18 15:06 05/11/18 12:09 05/11/18 12:09 Oxygen Flow Rate (L/min) 3.5 Oxygen Delivery Method Nasal Cannula Weight: 100 kg Body Mass Index (BMI) 29.9 Intake and Output for Last 24 Hours 05/09/18 05/10/18 05/11/18 23:59 23:59 23:59 Intake Total 3146 / 3146 2282.7 / 2282.7 1070.8 / 1070.8 Output Total 1900 / 1900 2175 / 2175 900 / 900 Balance 1246 / 1246 107.7 / 107.7 170.8 / 170.8 Laboratory Results 05/11/18 05:41: WBC 10.2, RBC 2.96 L, Hgb 11.1 L, Hct 34.9 L, MCV 117.9 H, MCH 37.5 H, MCHC 31.8 L, RDW 13.9, RDW Differential 60.2 H, Plt Count 257, MPV 11.0, Immature Gran % (Auto) 0.600, Neut % (Auto) 72.6 H, Lymph % (Auto) 11.8 L, [place] % (Auto) 11.7 H, Eos % (Auto) 3.0, Baso % (Auto) 0.3, Absolute Neuts (auto) 7.4, Absolute Lymphs (auto) 1.20, Total Counted Not Reportable 05/11/18 05:41: Sodium 139, Potassium 3.2 L, Chloride 101, Carbon Dioxide 31.0, Anion Gap 7, BUN 6 L, Creatinine 0.57 L, Estim Creat Clear Calc 149.38, Est GFR (MDRD) Af Amer 188, Est GFR (MDRD) Non-Af 155, BUN/Creatinine Ratio 10.6, Glucose 104, Calcium 8.0 L 05/11/18 15:00: PT 16.6 H, INR 1.3 Current Medications Albuterol/Ipratropium (Duoneb) 3 ml INHALATION Q4H.RT [facility] Last Admin: 05/11/18 15:06 Dose: 3 ml Atorvastatin Calcium (Lipitor) 40 mg PO HS [facility] Last Admin: 05/10/18 21:45 Dose: 40 mg Bisacodyl (Dulcolax) 5 mg PO DAILY PRN PRN PRN Reason: Constipation Carvedilol (Coreg) 25 mg PO BIDCM [facility] Last Admin: 05/11/18 08:17 Dose: 25 mg Docusate Sodium (Colace) 100 mg PO BID [facility] Last Admin: 05/11/18 09:27 Dose: Not Given Enoxaparin Sodium (Lovenox) 100 mg SC Q12 [facility] Furosemide (Lasix) 40 mg PO BIDLX [facility] Gabapentin (Neurontin) 300 mg PO TID [facility] Last Admin: 05/11/18 14:37 Dose: 300 mg Piperacillin Sod/Tazobactam (Sod 3.375 gm/ Sodium Chloride) 50 mls @ 12.5 mls/hr IV Q8 [facility] Last Admin: 05/11/18 14:41 Dose: 12.5 mls/hr Lisinopril (Zestril) 5 mg PO DAILY [facility] Last Admin: 05/11/18 09:28 Dose: 5 mg Magnesium Hydroxide (Milk Of Magnesia) 30 ml PO DAILY PRN PRN Reason: Constipation Magnesium Oxide (Mag-Ox 400) 400 mg PO DAILY [facility] Last Admin: 05/11/18 09:28 Dose: 400 mg Nutritional Formula (Lactose Free) (Ensure Clear) 120 ml PO 4X/DAY [facility] Last Admin: 05/11/18 15:16 Dose: Not Given Ondansetron HCl (Zofran) 4 mg IV Q6H PRN PRN PRN Reason: Nausea Oxycodone HCl (Oxyir) 5 mg PO Q4H PRN PRN PRN Reason: Moderate Pain (pain scale 4-5) Last Admin: 05/11/18 14:36 Dose: 5 mg Potassium Chloride (K-Dur) 10 meq PO DAILY [facility] Last Admin: 05/11/18 09:27 Dose: 10 meq Psyllium Hydrophilic Mucilloid (Metamucil) 1 packet PO DAILY PRN PRN PRN Reason: CONSTIPATION Sodium Chloride () 5 - 15 ml IV UD PRN PRN Reason: SALINE FLUSH Last Admin: 05/08/18 21:08 Dose: 10 ml Warfarin Sodium (Coumadin (Pbkc)) 5 mg PO DAILY@1700 [facility] Zolpidem Tartrate (Ambien (Generic)) 5 mg PO QHS PRN PRN PRN Reason: INSOMNIA Last Admin: 05/10/18 21:45 Dose: 5 mg Medical Necessity - Tobacco Use Smoking Status: Current every day smoker Tobacco Use: Cigarettes Assessment/Plan All Active Problems (Last Reviewed 05/04/18 @ 08:39 by Prasanth Pradhan MD) Gross hematuria (Acute) Overweight (Acute) MASOOD (obstructive sleep apnea) (Acute) Colovesical fistula (Acute) 62-year-old male with past medical history of hypertension, CAD, dilated cardiomyopathy, EF 30%, nicotine dependence who was admitted on 05/02/18 with hematuria. 1. Left lower extremity swelling, will rule out acute DVT, will continue to monitor. 2. POD #4, s/p colectomy for colo-vesicular fistula, found incidentally on cystoscopy. Improving, on clear liquid diet Will continue with general surgery recommendations 3. Acute hypoxic respiratory insufficiency secondary to atelectasis, on 4L oxygen, will continue to monitor 4. Acute gross hematuria, resolved, s/p suarez catheter, will continue to keep, outpatient urology follow-up. 5. CAD/Cardiomyopathy with EF 30% ejection fraction, history of left atrial appendage thrombus cardiology following, on statin, beta-bravo, Lasix, lisinopril 6.Hypertension, controlled, will continue on carvedilol, lisinopril, with holding parameters, will continue to monitor vitals. 7. Chronic anticoagulation with warfarin, will start on Lovenox BID and restart to coumadin 8. MASOOD, non-compliant with CPAP 9. DVT PPx- On Lovenox BID/Coumadin Code Visit Inpatient E&M: 24014 Subs Hosp L2
--- NOTE | 2018-05-11 17:11 | PN_ITS ---
Patient Problems: Active and Suspected Problems (Last Reviewed 05/04/18 @ 08:39 by Prasanth Pradhan MD) Gross hematuria (Acute) Overweight (Acute) MASOOD (obstructive sleep apnea) (Acute) non-compliant with CPAP Peripheral arterial disease (Suspected) Colovesical fistula (Acute) Subjective: Patient are seen and examined. Objective: Physical exam: General: Alert, Oriented x3, Cooperative, No apparent distress, - - 4L oxygen HEENT: Atraumatic, PERRLA, EOMI, Normocephalic Oral: Moist Mucosa Neck: Supple, No JVD, Negative Carotid Bruits Lungs: Clear to auscultation, Normal air movement Cardiovascular: Regular rate, Regular Rhythm, Normal S1, Normal S2, No murmurs Abdomen: Bowel Sounds Present, Soft, Non-Distended, No Hepato-splenomegaly, Tender - over the incisional site, - - Lower midline dressing in situ, minimally solved Extremities: No edema, Capillary Refill Less than 3 Seconds Skin: No rashes Musculoskeletal: No Tenderness to Palpation of Joints or Extremities Neurological: Cranial nerves II-XII grossly intact, Neuro grossly intact Psych/Mental Status: Normal Affect, Appropriate Vitals/I&O's: Vital Signs Temp Pulse Resp BP Pulse Ox 97.9 F 110 H 16 129/86 H 94 05/11/18 12:09 05/11/18 15:06 05/11/18 15:06 05/11/18 12:09 05/11/18 12:09 Oxygen Flow Rate (L/min) 3.5 Oxygen Delivery Method Nasal Cannula Weight: 100 kg Body Mass Index (BMI) 29.9 Intake and Output for Last 24 Hours 05/09/18 05/10/18 05/11/18 23:59 23:59 23:59 Intake Total 3146 / 3146 2282.7 / 2282.7 1070.8 / 1070.8 Output Total 1900 / 1900 2175 / 2175 900 / 900 Balance 1246 / 1246 107.7 / 107.7 170.8 / 170.8 Laboratory Results 05/11/18 05:41: WBC 10.2, RBC 2.96 L, Hgb 11.1 L, Hct 34.9 L, MCV 117.9 H, MCH 37.5 H, MCHC 31.8 L, RDW 13.9, RDW Differential 60.2 H, Plt Count 257, MPV 11.0, Immature Gran % (Auto) 0.600, Neut % (Auto) 72.6 H, Lymph % (Auto) 11.8 L, [place] % (Auto) 11.7 H, Eos % (Auto) 3.0, Baso % (Auto) 0.3, Absolute Neuts (auto) 7.4, Absolute Lymphs (auto) 1.20, Total Counted Not Reportable 05/11/18 05:41: Sodium 139, Potassium 3.2 L, Chloride 101, Carbon Dioxide 31.0, Anion Gap 7, BUN 6 L, Creatinine 0.57 L, Estim Creat Clear Calc 149.38, Est GFR (MDRD) Af Amer 188, Est GFR (MDRD) Non-Af 155, BUN/Creatinine Ratio 10.6, Glucose 104, Calcium 8.0 L 05/11/18 15:00: PT 16.6 H, INR 1.3 Current Medications Albuterol/Ipratropium (Duoneb) 3 ml INHALATION Q4H.RT [facility] Last Admin: 05/11/18 15:06 Dose: 3 ml Atorvastatin Calcium (Lipitor) 40 mg PO HS [facility] Last Admin: 05/10/18 21:45 Dose: 40 mg Bisacodyl (Dulcolax) 5 mg PO DAILY PRN PRN PRN Reason: Constipation Carvedilol (Coreg) 25 mg PO BIDCM [facility] Last Admin: 05/11/18 08:17 Dose: 25 mg Docusate Sodium (Colace) 100 mg PO BID [facility] Last Admin: 05/11/18 09:27 Dose: Not Given Enoxaparin Sodium (Lovenox) 100 mg SC Q12 [facility] Furosemide (Lasix) 40 mg PO BIDLX [facility] Gabapentin (Neurontin) 300 mg PO TID [facility] Last Admin: 05/11/18 14:37 Dose: 300 mg Piperacillin Sod/Tazobactam (Sod 3.375 gm/ Sodium Chloride) 50 mls @ 12.5 mls/hr IV Q8 [facility] Last Admin: 05/11/18 14:41 Dose: 12.5 mls/hr Lisinopril (Zestril) 5 mg PO DAILY [facility] Last Admin: 05/11/18 09:28 Dose: 5 mg Magnesium Hydroxide (Milk Of Magnesia) 30 ml PO DAILY PRN PRN Reason: Constipation Magnesium Oxide (Mag-Ox 400) 400 mg PO DAILY [facility] Last Admin: 05/11/18 09:28 Dose: 400 mg Nutritional Formula (Lactose Free) (Ensure Clear) 120 ml PO 4X/DAY [facility] Last Admin: 05/11/18 15:16 Dose: Not Given Ondansetron HCl (Zofran) 4 mg IV Q6H PRN PRN PRN Reason: Nausea Oxycodone HCl (Oxyir) 5 mg PO Q4H PRN PRN PRN Reason: Moderate Pain (pain scale 4-5) Last Admin: 05/11/18 14:36 Dose: 5 mg Potassium Chloride (K-Dur) 10 meq PO DAILY [facility] Last Admin: 05/11/18 09:27 Dose: 10 meq Psyllium Hydrophilic Mucilloid (Metamucil) 1 packet PO DAILY PRN PRN PRN Reason: CONSTIPATION Sodium Chloride () 5 - 15 ml IV UD PRN PRN Reason: SALINE FLUSH Last Admin: 05/08/18 21:08 Dose: 10 ml Warfarin Sodium (Coumadin (Pbkc)) 5 mg PO DAILY@1700 [facility] Zolpidem Tartrate (Ambien (Generic)) 5 mg PO QHS PRN PRN PRN Reason: INSOMNIA Last Admin: 05/10/18 21:45 Dose: 5 mg Medical Necessity - Tobacco Use Smoking Status: Current every day smoker Tobacco Use: Cigarettes Assessment/Plan All Active Problems (Last Reviewed 05/04/18 @ 08:39 by Prasanth Pradhan MD) Gross hematuria (Acute) Overweight (Acute) MASOOD (obstructive sleep apnea) (Acute) Colovesical fistula (Acute) 62-year-old male with past medical history of hypertension, CAD, dilated cardiomyopathy, EF 30%, nicotine dependence who was admitted on 05/02/18 with hematuria. 1. Left lower extremity swelling, will rule out acute DVT, will continue to monitor. 2. POD #4, s/p colectomy for colo-vesicular fistula, found incidentally on cystoscopy. Improving, on clear liquid diet Will continue with general surgery recommendations 3. Acute hypoxic respiratory insufficiency secondary to atelectasis, on 4L oxygen, will continue to monitor 4. Acute gross hematuria, resolved, s/p suarez catheter, will continue to keep, outpatient urology follow-up. 5. CAD/Cardiomyopathy with EF 30% ejection fraction, history of left atrial appendage thrombus cardiology following, on statin, beta-bravo, Lasix, lisinopril 6.Hypertension, controlled, will continue on carvedilol, lisinopril, with holding parameters, will continue to monitor vitals. 7. Chronic anticoagulation with warfarin, will start on Lovenox BID and restart to coumadin 8. MASOOD, non-compliant with CPAP 9. DVT PPx- On Lovenox BID/Coumadin Code Visit Inpatient E&M: 60963 Subs Hosp L2
[2018-05-11] MEDS: Furosemide 40 MG Tablet PO (17:18)
[2018-05-11] MEDS: Atorvastatin Calcium 40 MG Tablet PO (22:26)
[2018-05-11] MEDS: Enoxaparin 100 MG/ML Syringe SC (22:26)
[2018-05-11] MEDS: Zolpidem Tartrate 5 MG Tablet PO (22:30)
[2018-05-12] VITALS (31 sets, daily range): BP systolic 84–102; BP diastolic 54–92; PULSE 78–116; RESP 16–20; TEMP 36.6–37.8; O2SAT 90–94
[2018-05-12] MEDS: Ipratropium/Albuterol Sulfate 3 ML AMPUL.NEB INHALATION ×6 (04:03→23:39)
[2018-05-12] MEDS: Gabapentin 300 MG Capsule PO (05:24)
[2018-05-12 07:09] LABS: Absolute Lymphocyte Count 1.32 X10^3/ul (0.83-4.51); Absolute Neutrophil Count 6.7 X10^3/uL (2.0-7.7); Basophil# 0.03 X10^3/uL; Basophil% 0.3 % (0-1); Eosinophil# 0.25 X10^3/uL; Eosinophils% 2.5 % (0-5); Hematocrit 34.8 % (40-54); Hemoglobin 11.2 g/dl (13.0-16.5); Lymphocyte # 1.32 X10^3/ul (4.0); Lymphocyte % 13.4 % (19-41); Mean Corp Hgb Conc 32.2 g/gl (32-36); Mean Corpuscular Hgb 37.3 pg (27.0-32.0); Monocyte# 1.56 X10^3/uL; Monocyte% 15.8 % (0-10); Neutrophil # 6.67 X10^3/uL (2.7-7.7); Neutrophil % 67.5 % (47-70); Platelet Count 293 K/mm3 (150-450); RBC Distribution Width CV 14.2 % (11.6-14.6); RBC Distribution Width SD 60.2 fl (35.1-43.9); White Blood Count 9.9 K/mm3 (4.4-11.0)
[2018-05-12 07:10] LABS: Differential Indicated SCAN CRITERIA MET; POSITIVE COUNT NO; POSITIVE DIFFERENTIAL YES; POSITIVE MORPHOLOGY NO
[2018-05-12 07:13] LABS: International Normalized Ratio 1.4; Prothrombin Time (Protime)PT. 17.6 SECONDS (11.7-14.9)
[2018-05-12 07:36] LABS: Anion Gap 9 (5-15); BUN 5 mg/dL (7-18); BUN/Creat Ratio 8.1 RATIO (10-20); Chloride 95 mmol/L (98-107); Creatinine, Serum 0.62 mg/dL (0.70-1.30); EST Glomerular Filtration Rate 140 mL/min (>60); Est Glom Filt Rate - Afr Amer 169 mL/min (>60); Estimated Creatinine Clearance 137.33 ml/min; Glucose 92 mg/dL (74-106); Sodium Level 137 mmol/L (136-145)
[2018-05-12 08:12] LABS: Macrocytosis 1+
--- NOTE | 2018-05-12 08:52 | PN.SURG_ITS ---
Patient Problems: Active and Suspected Problems (Last Reviewed 05/04/18 @ 08:39 by Prasanth Pradhan MD) Gross hematuria (Acute) Overweight (Acute) MASOOD (obstructive sleep apnea) (Acute) non-compliant with CPAP Peripheral arterial disease (Suspected) Colovesical fistula (Acute) Subjective: Patient denies nausea, has had a couple small bowel movements of diarrhea, patient still states his belly is distended compared to normal - Physical Exam General: Alert, Oriented x3, Cooperative, No apparent distress HEENT: Atraumatic Abdomen: Soft, Non-Distended, Tender - Near incision incision clean dry and intact with Steri's Vital Signs Temp Pulse Resp BP Pulse Ox 98.3 F 78 18 95/70 92 05/12/18 08:00 05/12/18 08:00 05/12/18 08:00 05/12/18 08:00 05/12/18 08:00 Oxygen Flow Rate (L/min) 5 Oxygen Delivery Method Nasal Cannula Weight: 220 lb 7.396 oz Body Mass Index (BMI) 29.9 Intake and Output for Last 24 Hours 05/10/18 05/11/18 05/12/18 23:59 23:59 23:59 Intake Total 2282.7 / 2282.7 2076.8 / 2076.8 193.6 / 193.6 Output Total 2175 / 2175 2725 / 2725 1000 / 1000 Balance 107.7 / 107.7 -648.2 / -648.2 -806.4 / -806.4 Laboratory Tests Past 24 Hrs 05/11/18 05/12/18 05/12/18 15:00 06:05 06:05 WBC 9.9 RBC 3.00 L Hgb 11.2 L Hct 34.8 L MCV 116.0 H MCH 37.3 H MCHC 32.2 RDW 14.2 RDW Differential 60.2 H Plt Count 293 MPV 11.0 Immature Gran % (Auto) 0.500 Neut % (Auto) 67.5 Lymph % (Auto) 13.[address] [place] % (Auto) 15.8 H Eos % (Auto) 2.5 Baso % (Auto) 0.3 Absolute Neuts (auto) 6.7 Absolute Lymphs (auto) 1.32 Total Counted Not Reportable Macrocytosis 1+ PT 16.6 H INR 1.3 Sodium 137 Potassium 3.0 L Chloride 95 L Carbon Dioxide 33.0 H Anion Gap 9 BUN 5 L Creatinine 0.62 L Estim Creat Clear Calc 137.33 Est GFR (MDRD) Af Amer 169 Est GFR (MDRD) Non-Af 140 BUN/Creatinine Ratio 8.1 L Glucose 92 Calcium 8.0 L Magnesium 05/12/18 05/12/18 06:05 06:05 WBC RBC Hgb Hct MCV MCH MCHC RDW RDW Differential Plt Count MPV Immature Gran % (Auto) Neut % (Auto) Lymph % (Auto) [place] % (Auto) Eos % (Auto) Baso % (Auto) Absolute Neuts (auto) Absolute Lymphs (auto) Total Counted Macrocytosis PT 17.6 H INR 1.4 Sodium Potassium Chloride Carbon Dioxide Anion Gap BUN Creatinine Estim Creat Clear Calc Est GFR (MDRD) Af Amer Est GFR (MDRD) Non-Af BUN/Creatinine Ratio Glucose Calcium Magnesium Pending Medical Necessity - Tobacco Use Smoking Status: Current every day smoker Tobacco Use: Cigarettes Assessment/Plan All Active Problems (Last Reviewed 05/04/18 @ 08:39 by Prasanth Pradhan MD) Gross hematuria (Acute) Overweight (Acute) MASOOD (obstructive sleep apnea) (Acute) Colovesical fistula (Acute) 1. Advance to full's 2. Continue ambulation/up to chair 3. Continue Maldonado for I's and O's 4. Hypokalemia -, also checking magnesium will plan to replace if low Izabel Evans M.D. Pager: [phone] [facility] [address] [place] [address], Outpatient [facility], [address] [place] [address] Office: [phone]
[2018-05-12 08:53] LABS: Magnesium 1.9 mg/dL (1.6-2.6)
[2018-05-12] MEDS: Enoxaparin 100 MG/ML Syringe SC ×2 (09:01→21:23)
[2018-05-12] MEDS: Magnesium Oxide 400 MG Tablet PO (09:02)
[2018-05-12] MEDS: Furosemide 40 MG Tablet PO (09:03)
--- NOTE | 2018-05-12 13:10 | EKG12_ITS ---
Test Reason : CP Blood Pressure : / mmHG Vent. Rate : 102 BPM Atrial Rate : 097 BPM P-R Int : 000 ms QRS Dur : 158 ms QT Int : 380 ms P-R-T Axes : 000 -02 -13 degrees QTc Int : 495 ms Atrial fibrillation with rapid ventricular response Right bundle branch block Abnormal ECG Confirmed by MAYNOR WOODALL, MADDISON ([id number]), content editor SHANAE JULIEN ([id number] on 05/15/2018 10:48:27 AM Referred By: JEREMÍAS Confirmed By:MADDISON MCGUIRE MD
[2018-05-12] MEDS: oxyCODONE 5 MG Tablet PO ×2 (16:11→21:35)
--- NOTE | 2018-05-12 16:15 | PCM.PN.HOSP ---
Patient Problems: Active and Suspected Problems (Last Reviewed 05/04/18 @ 08:39 by Prasanth Pradhan MD) Gross hematuria (Acute) Overweight (Acute) MASOOD (obstructive sleep apnea) (Acute) non-compliant with CPAP Peripheral arterial disease (Suspected) Colovesical fistula (Acute) Subjective: Patient was seen and examined. He is hypotensive today. Complains of feeling slightly light-headed. Coreg and Lisinopril have been held. Receiving fluid boluses, will continue to evaluate. Objective: Physical exam: General: Alert, Oriented x3, Cooperative, No apparent distress, - - 5L oxygen HEENT: Atraumatic, PERRLA, EOMI, Normocephalic Oral: Moist Mucosa Neck: Supple, No JVD, Negative Carotid Bruits Lungs: Clear to auscultation, Normal air movement Cardiovascular: Regular rate, Regular Rhythm, Normal S1, Normal S2, No murmurs Abdomen: Bowel Sounds Present, Soft, Non-Distended, No Hepato-splenomegaly, Tender - over the incisional site, - - Lower midline dressing in situ, minimally solved Extremities: No edema, Capillary Refill Less than 3 Seconds Skin: No rashes Musculoskeletal: No Tenderness to Palpation of Joints or Extremities Neurological: Cranial nerves II-XII grossly intact, Neuro grossly intact Psych/Mental Status: Normal Affect, Appropriate Vitals/I&O's: Vital Signs Temp Pulse Resp BP Pulse Ox 98.6 F 104 H 18 88/58 L 91 05/12/18 16:00 05/12/18 16:00 05/12/18 16:00 05/12/18 16:00 05/12/18 16:00 Oxygen Flow Rate (L/min) 5 Oxygen Delivery Method Nasal Cannula Weight: 100 kg Body Mass Index (BMI) 29.9 Intake and Output for Last 24 Hours 05/10/18 05/11/18 05/12/18 23:59 23:59 23:59 Intake Total 2282.7 / 2282.7 2076.8 / 2076.8 1006.6 / 1006.6 Output Total 2175 / 2175 2725 / 2725 1300 / 1300 Balance 107.7 / 107.7 -648.2 / -648.2 -293.4 / -293.4 Laboratory Results 05/12/18 06:05: WBC 9.9, RBC 3.00 L, Hgb 11.2 L, Hct 34.8 L, MCV 116.0 H, MCH 37.3 H, MCHC 32.2, RDW 14.2, RDW Differential 60.2 H, Plt Count 293, MPV 11.0, Immature Gran % (Auto) 0.500, Neut % (Auto) 67.5, Lymph % (Auto) 13.4 L, [place] % (Auto) 15.8 H, Eos % (Auto) 2.5, Baso % (Auto) 0.3, Absolute Neuts (auto) 6.7, Absolute Lymphs (auto) 1.32, Total Counted Not Reportable, Macrocytosis 1+ 05/12/18 06:05: Sodium 137, Potassium 3.0 L, Chloride 95 L, Carbon Dioxide 33.0 H, Anion Gap 9, BUN 5 L, Creatinine 0.62 L, Estim Creat Clear Calc 137.33, Est GFR (MDRD) Af Amer 169, Est GFR (MDRD) Non-Af 140, BUN/Creatinine Ratio 8.1 L, Glucose 92, Calcium 8.0 L 05/12/18 06:05: PT 17.6 H, INR 1.4 05/12/18 06:05: Magnesium 1.9 Current Medications Albuterol/Ipratropium (Duoneb) 3 ml INHALATION Q4H.RT [facility] Last Admin: 05/12/18 14:54 Dose: 3 ml Atorvastatin Calcium (Lipitor) 40 mg PO HS [facility] Last Admin: 05/11/18 22:26 Dose: 40 mg Bisacodyl (Dulcolax) 5 mg PO DAILY PRN PRN PRN Reason: Constipation Docusate Sodium (Colace) 100 mg PO BID [facility] Last Admin: 05/12/18 09:00 Dose: Not Given Enoxaparin Sodium (Lovenox) 100 mg SC Q12 [facility] Last Admin: 05/12/18 09:01 Dose: 100 mg Furosemide (Lasix) 40 mg PO BIDLX [facility] Last Admin: 05/12/18 09:03 Dose: 40 mg Piperacillin Sod/Tazobactam (Sod 3.375 gm/ Sodium Chloride) 50 mls @ 12.5 mls/hr IV Q8 [facility] Last Admin: 05/12/18 13:52 Dose: 12.5 mls/hr Magnesium Sulfate 1 gm/ Sodium (Chloride) 102 mls @ 52 mls/hr IV X1 ONE Stop: 05/12/18 18:11 Magnesium Hydroxide (Milk Of Magnesia) 30 ml PO DAILY PRN PRN Reason: Constipation Magnesium Oxide (Mag-Ox 400) 400 mg PO DAILY [facility] Last Admin: 05/12/18 09:02 Dose: 400 mg Nutritional Formula (Lactose Free) (Ensure Clear) 120 ml PO 4X/DAY [facility] Last Admin: 05/12/18 13:46 Dose: Not Given Ondansetron HCl (Zofran) 4 mg IV Q6H PRN PRN PRN Reason: Nausea Oxycodone HCl (Oxyir) 5 mg PO Q4H PRN PRN PRN Reason: Moderate Pain (pain scale 4-5) Last Admin: 05/12/18 16:11 Dose: 5 mg Potassium Chloride (K-Dur) 10 meq PO DAILY [facility] Last Admin: 05/12/18 09:02 Dose: 10 meq Psyllium Hydrophilic Mucilloid (Metamucil) 1 packet PO DAILY PRN PRN PRN Reason: CONSTIPATION Sodium Chloride () 5 - 15 ml IV UD PRN PRN Reason: SALINE FLUSH Last Admin: 05/08/18 21:08 Dose: 10 ml Warfarin Sodium (Coumadin (Pbkc)) 5 mg PO DAILY@1700 [facility] Last Admin: 05/12/18 16:12 Dose: 5 mg Zolpidem Tartrate (Ambien (Generic)) 5 mg PO QHS PRN PRN PRN Reason: INSOMNIA Last Admin: 05/11/18 22:30 Dose: 5 mg Medical Necessity - Tobacco Use Smoking Status: Current every day smoker Tobacco Use: Cigarettes Assessment/Plan All Active Problems (Last Reviewed 05/04/18 @ 08:39 by Prasanth Pradhan MD) Gross hematuria (Acute) Overweight (Acute) MASOOD (obstructive sleep apnea) (Acute) Colovesical fistula (Acute) 62-year-old male with past medical history of hypertension, CAD, dilated cardiomyopathy, EF 30%, nicotine dependence who was admitted on 05/02/18 with hematuria. 1. Hypotensive, likely hypovolemic, less likely septic, Has been on IV Zosyn day 6 post procedure will hold blood pressure medications, Blood cultures x2 , repeat chest x-ray continue with IV fluid boluses, continue to monitor vitals 2. Left left leg DVT, already started on therapeutic Lovenox with coumadin overlap, INR is 1.4 today 3. POD #5, s/p colectomy for colo-vesicular fistula, found incidentally on cystoscopy. Improving, on full liquid diet Will continue with general surgery recommendations 4. Acute hypoxic respiratory insufficiency secondary to atelectasis, on 5L oxygen Repeat chest x-ray to evaluate for possible pneumonia vs worsening atelectasis 5. Acute gross hematuria, resolved, s/p suarez catheter, will continue to keep, outpatient urology follow-up. On day 6 of IV zosyn 6. CAD/Cardiomyopathy with EF 30% ejection fraction, history of left atrial appendage thrombus cardiology following, on statin, Beta-bravo, Lasix, lisinopril on hold 7.Hypertension, controlled, will continue on carvedilol, lisinopril, with holding parameters, will continue to monitor vitals. 8. Chronic anticoagulation with warfarin, will start on Lovenox BID and restart to coumadin 9. MASOOD, non-compliant with CPAP 10. DVT PPx- On Lovenox BID/Coumadin Code Visit Inpatient E&M: 02826 Subs Hosp L2
--- NOTE | 2018-05-12 16:29 | PN_ITS ---
Patient Problems: Active and Suspected Problems (Last Reviewed 05/04/18 @ 08:39 by Prasanth Pradhan MD) Gross hematuria (Acute) Overweight (Acute) MASOOD (obstructive sleep apnea) (Acute) non-compliant with CPAP Peripheral arterial disease (Suspected) Colovesical fistula (Acute) Subjective: Patient was seen and examined. He is hypotensive today. Complains of feeling slightly light-headed. Coreg and Lisinopril have been held. Receiving fluid boluses, will continue to evaluate. Objective: Physical exam: General: Alert, Oriented x3, Cooperative, No apparent distress, - - 5L oxygen HEENT: Atraumatic, PERRLA, EOMI, Normocephalic Oral: Moist Mucosa Neck: Supple, No JVD, Negative Carotid Bruits Lungs: Clear to auscultation, Normal air movement Cardiovascular: Regular rate, Regular Rhythm, Normal S1, Normal S2, No murmurs Abdomen: Bowel Sounds Present, Soft, Non-Distended, No Hepato-splenomegaly, Tender - over the incisional site, - - Lower midline dressing in situ, minimally solved Extremities: No edema, Capillary Refill Less than 3 Seconds Skin: No rashes Musculoskeletal: No Tenderness to Palpation of Joints or Extremities Neurological: Cranial nerves II-XII grossly intact, Neuro grossly intact Psych/Mental Status: Normal Affect, Appropriate Vitals/I&O's: Vital Signs Temp Pulse Resp BP Pulse Ox 98.6 F 104 H 18 88/58 L 91 05/12/18 16:00 05/12/18 16:00 05/12/18 16:00 05/12/18 16:00 05/12/18 16:00 Oxygen Flow Rate (L/min) 5 Oxygen Delivery Method Nasal Cannula Weight: 100 kg Body Mass Index (BMI) 29.9 Intake and Output for Last 24 Hours 05/10/18 05/11/18 05/12/18 23:59 23:59 23:59 Intake Total 2282.7 / 2282.7 2076.8 / 2076.8 1006.6 / 1006.6 Output Total 2175 / 2175 2725 / 2725 1300 / 1300 Balance 107.7 / 107.7 -648.2 / -648.2 -293.4 / -293.4 Laboratory Results 05/12/18 06:05: WBC 9.9, RBC 3.00 L, Hgb 11.2 L, Hct 34.8 L, MCV 116.0 H, MCH 37.3 H, MCHC 32.2, RDW 14.2, RDW Differential 60.2 H, Plt Count 293, MPV 11.0, Immature Gran % (Auto) 0.500, Neut % (Auto) 67.5, Lymph % (Auto) 13.4 L, [place] % (Auto) 15.8 H, Eos % (Auto) 2.5, Baso % (Auto) 0.3, Absolute Neuts (auto) 6.7, Absolute Lymphs (auto) 1.32, Total Counted Not Reportable, Macrocytosis 1+ 05/12/18 06:05: Sodium 137, Potassium 3.0 L, Chloride 95 L, Carbon Dioxide 33.0 H, Anion Gap 9, BUN 5 L, Creatinine 0.62 L, Estim Creat Clear Calc 137.33, Est GFR (MDRD) Af Amer 169, Est GFR (MDRD) Non-Af 140, BUN/Creatinine Ratio 8.1 L, Glucose 92, Calcium 8.0 L 05/12/18 06:05: PT 17.6 H, INR 1.4 05/12/18 06:05: Magnesium 1.9 Current Medications Albuterol/Ipratropium (Duoneb) 3 ml INHALATION Q4H.RT [facility] Last Admin: 05/12/18 14:54 Dose: 3 ml Atorvastatin Calcium (Lipitor) 40 mg PO HS [facility] Last Admin: 05/11/18 22:26 Dose: 40 mg Bisacodyl (Dulcolax) 5 mg PO DAILY PRN PRN PRN Reason: Constipation Docusate Sodium (Colace) 100 mg PO BID [facility] Last Admin: 05/12/18 09:00 Dose: Not Given Enoxaparin Sodium (Lovenox) 100 mg SC Q12 [facility] Last Admin: 05/12/18 09:01 Dose: 100 mg Furosemide (Lasix) 40 mg PO BIDLX [facility] Last Admin: 05/12/18 09:03 Dose: 40 mg Piperacillin Sod/Tazobactam (Sod 3.375 gm/ Sodium Chloride) 50 mls @ 12.5 mls/hr IV Q8 [facility] Last Admin: 05/12/18 13:52 Dose: 12.5 mls/hr Magnesium Sulfate 1 gm/ Sodium (Chloride) 102 mls @ 52 mls/hr IV X1 ONE Stop: 05/12/18 18:11 Magnesium Hydroxide (Milk Of Magnesia) 30 ml PO DAILY PRN PRN Reason: Constipation Magnesium Oxide (Mag-Ox 400) 400 mg PO DAILY [facility] Last Admin: 05/12/18 09:02 Dose: 400 mg Nutritional Formula (Lactose Free) (Ensure Clear) 120 ml PO 4X/DAY [facility] Last Admin: 05/12/18 13:46 Dose: Not Given Ondansetron HCl (Zofran) 4 mg IV Q6H PRN PRN PRN Reason: Nausea Oxycodone HCl (Oxyir) 5 mg PO Q4H PRN PRN PRN Reason: Moderate Pain (pain scale 4-5) Last Admin: 05/12/18 16:11 Dose: 5 mg Potassium Chloride (K-Dur) 10 meq PO DAILY [facility] Last Admin: 05/12/18 09:02 Dose: 10 meq Psyllium Hydrophilic Mucilloid (Metamucil) 1 packet PO DAILY PRN PRN PRN Reason: CONSTIPATION Sodium Chloride () 5 - 15 ml IV UD PRN PRN Reason: SALINE FLUSH Last Admin: 05/08/18 21:08 Dose: 10 ml Warfarin Sodium (Coumadin (Pbkc)) 5 mg PO DAILY@1700 [facility] Last Admin: 05/12/18 16:12 Dose: 5 mg Zolpidem Tartrate (Ambien (Generic)) 5 mg PO QHS PRN PRN PRN Reason: INSOMNIA Last Admin: 05/11/18 22:30 Dose: 5 mg Medical Necessity - Tobacco Use Smoking Status: Current every day smoker Tobacco Use: Cigarettes Assessment/Plan All Active Problems (Last Reviewed 05/04/18 @ 08:39 by Prasanth Pradhan MD) Gross hematuria (Acute) Overweight (Acute) MASOOD (obstructive sleep apnea) (Acute) Colovesical fistula (Acute) 62-year-old male with past medical history of hypertension, CAD, dilated cardiomyopathy, EF 30%, nicotine dependence who was admitted on 05/02/18 with hematuria. 1. Hypotensive, likely hypovolemic, less likely septic, Has been on IV Zosyn day 6 post procedure will hold blood pressure medications, Blood cultures x2 , repeat chest x-ray continue with IV fluid boluses, continue to monitor vitals 2. Left left leg DVT, already started on therapeutic Lovenox with coumadin overlap, INR is 1.4 today 3. POD #5, s/p colectomy for colo-vesicular fistula, found incidentally on cystoscopy. Improving, on full liquid diet Will continue with general surgery recommendations 4. Acute hypoxic respiratory insufficiency secondary to atelectasis, on 5L oxygen Repeat chest x-ray to evaluate for possible pneumonia vs worsening atelectasis 5. Acute gross hematuria, resolved, s/p suarez catheter, will continue to keep, outpatient urology follow-up. On day 6 of IV zosyn 6. CAD/Cardiomyopathy with EF 30% ejection fraction, history of left atrial appendage thrombus cardiology following, on statin, Beta-bravo, Lasix, lisinopril on hold 7.Hypertension, controlled, will continue on carvedilol, lisinopril, with holding parameters, will continue to monitor vitals. 8. Chronic anticoagulation with warfarin, will start on Lovenox BID and restart to coumadin 9. MASOOD, non-compliant with CPAP 10. DVT PPx- On Lovenox BID/Coumadin Code Visit Inpatient E&M: 41499 Subs Hosp L2
--- NOTE | 2018-05-12 16:45 | RAD_ITS ---
STUDY: X-RAY CHEST REASON FOR EXAM: Male, 62 years old. Shortness of breath with gross hematuria TECHNIQUE: AP COMPARISON: 05/10/2018 FINDINGS: Improved aeration of the lung bases since the prior study with diminished amount of basilar atelectasis. No airspace consolidation. EKG leads project over the chest. There is no demonstrated pleural abnormality. There is mild cardiac enlargement. Normal mediastinum and alec. Normal visualized pulmonary arteries. There is atherosclerotic tortuosity of the aortic arch and descending thoracic aorta. Normal visualized thoracic spine. Normal visualized ribs, clavicles, and shoulders. There is gaseous distention of bowel in the upper abdomen, incompletely visualized. RAD/Chest 1 View (Portable) IMPRESSION: 1. Decreased bibasilar atelectasis. No organizing infiltrates seen. 2. Gaseous distention of bowel in the upper abdomen, incompletely visualized. 3. Mild cardiomegaly. Electronically Signed: Tunde Cole MD at 17:03 EST , Service support ,
[2018-05-12] MEDS: Magnesium Sulfate 1 GM in 0.9% Normal Saline 100 ML IV (17:43)
[2018-05-12] MEDS: Atorvastatin Calcium 40 MG Tablet PO (21:23)
[2018-05-12] MEDS: 0.9% NaCl Peripheral Flush Adult/Peds IV (21:23)
[2018-05-12] MEDS: Zolpidem Tartrate 5 MG Tablet PO (21:37)
[2018-05-13] VITALS (36 sets, daily range): BP systolic 72–135; BP diastolic 33–82; PULSE 76–141; RESP 12–124; TEMP 36.7–39.4; O2SAT 83–100
--- NOTE | 2018-05-13 | COL_PTH ---
PATIENT: SABRA DAVID LOC: [facility] U#:[id number] AGE/SX: 62/M ROOM: ICU03 RE05/03/[address]: Dr. Catalina Whatley MD : [id number] BED: 1 DIS: 05/24/2018 SPEC #: [id number] RECD: 05/14/18 12:32 STATUS: JJ REQ #: [id number] LAMBERTO: 05/13/18 00:[address]: Prasanth Pradhan DEPT: SURGICAL PATHOLOGY RECD BY: Pardeep Soria ENTERED: 05/14/18 12:32 SP TYPE: COLON OTHR DR: MD Dr. Kurt Anderson MD Dr. Mary Catherine Sementi, DO Dr. Juan Miguel Proano, MD Dr. Linda Wang, MD Dr. Nana Yaa Koram, MD Mary Ciesa, IRON WORKER APPRENTICE-C Tissues: Colon, NOS Procedures: Surgery Specimen Level V Comments: @ Ordering doctor for SUV edited from to @ tonja REY at 05/15/18 0932 @ Submitting doctor edited from to DR.[email or web address] Witt by KRISSY at 05/15/18 0932 HEADER OPERATION: Exploratory laparotomy, creation of end colostomy PRE-OP DIAGNOSIS: Anastomotic leak, sepsis TISSUE SUBMITTED: Sigmoid colon MICROSCOPIC DIAGNOSIS Sigmoid colon, segmental resection: Segment of benign colon showing acute serositis and fat necrosis. One benign submucosal lymph node present. CE:pietro 05/15/18 MICROSCOPIC DESCRIPTION Slides are reviewed. GROSS DESCRIPTION Received in fixative is one container labeled with the patient's name and designated sigmoid colon. The specimen consists of a segment of colon with attached adipose tissue measuring 5 cm in length. No mucosal lesion is identified. Sutures are noted at the edge of the specimen. Also present in the container is a congested, hemorrhagic piece of adipose tissue measuring 6 x 3 x 0.5 cm. Remediation Project Engineer sections are submitted in four cassettes as follows: 1 & 2 - segment of colon, 3 & 4 - hemorrhagic piece of adipose tissue. / DESTIN:pietro 05/14/18 TC:2 CPT: 70735
[2018-05-13] MEDS: Ipratropium/Albuterol Sulfate 3 ML AMPUL.NEB INHALATION ×4 (03:58→15:46)
[2018-05-13 06:01] LABS: Anion Gap 9 (5-15); BUN 6 mg/dL (7-18); BUN/Creat Ratio 8.9 RATIO (10-20); Calcium,Total 7.8 mg/dL (8.5-10.1); Chloride 97 mmol/L (98-107); Creatinine, Serum 0.67 mg/dL (0.70-1.30); EST Glomerular Filtration Rate 128 mL/min (>60); Est Glom Filt Rate - Afr Amer 154 mL/min (>60); Estimated Creatinine Clearance 127.08 ml/min; Glucose 140 mg/dL (74-106); Potassium 2.9 mmol/L (3.5-5.1); Sodium Level 138 mmol/L (136-145)
[2018-05-13 06:04] LABS: Absolute Lymphocyte Count 1.16 X10^3/ul (0.83-4.51); Absolute Neutrophil Count 9.2 X10^3/uL (2.0-7.7); Basophil# 0.03 X10^3/uL; Basophil% 0.2 % (0-1); Eosinophil# 0.17 X10^3/uL; Eosinophils% 1.4 % (0-5); Hematocrit 32.9 % (40-54); Hemoglobin 10.6 g/dl (13.0-16.5); Lymphocyte # 1.16 X10^3/ul (4.0); Lymphocyte % 9.5 % (19-41); Mean Corp Hgb Conc 32.2 g/gl (32-36); Mean Corpuscular Hgb 37.7 pg (27.0-32.0); Mean Corpuscular Volume 117.1 fL (80-94); Mean Platelet Vol. 11.2 fl (6.2-12.0); Monocyte# 1.49 X10^3/uL; Monocyte% 12.2 % (0-10); Neutrophil # 9.18 X10^3/uL (2.7-7.7); Neutrophil % 75.5 % (47-70); Platelet Count 291 K/mm3 (150-450); RBC Distribution Width CV 13.9 % (11.6-14.6); Red Blood Count 2.81 M/mm3 (4.6-6.2); White Blood Count 12.2 K/mm3 (4.4-11.0)
[2018-05-13 06:12] LABS: POSITIVE COUNT NO; POSITIVE DIFFERENTIAL NO; POSITIVE MORPHOLOGY NO
[2018-05-13 06:33] LABS: International Normalized Ratio 1.6; Prothrombin Time (Protime)PT. 18.5 SECONDS (11.7-14.9)
[2018-05-13] MEDS: Potassium Chloride 10mEq/100mL 10 MEQ/100 ML IV.SOLN. 100 MEQ IV BOLUS ×4 (08:20→11:30)
[2018-05-13] MEDS: Enoxaparin 100 MG/ML Syringe SC ×2 (08:21→22:49)
[2018-05-13] MEDS: Magnesium Oxide 400 MG Tablet PO (08:22)
[2018-05-13] MEDS: oxyCODONE 5 MG Tablet PO (08:24)
--- NOTE | 2018-05-13 10:28 | CT_ITS ---
STUDY: CT ABDOMEN AND PELVIS WITH CONTRAST REASON FOR EXAM: Male, 62 years old. History of colovesical fistula. RADIATION DOSAGE (If Supplied By Facility): CTDIvol = ( 37.48 ) mGy, DLP = ( 1426.25 ) mGycm TECHNIQUE: Transaxial images were obtained from the dome of the diaphragm to the symphysis pubis without oral contrast. Isovue 300 100ML IV/Oral was administered. Rectal contrast was administered as well. Sagittal and coronal images were reconstructed. Individualized dose optimization techniques were used for this CT. COMPARISON: Comparison is made with prior study of May 04, 2018. FINDINGS: Small bilateral pleural effusions with bibasilar infiltrates. Calcified bibasilar granulomas. Coronary artery calcification. Perihepatic and perisplenic fluid. Normal gallbladder and extrahepatic biliary system. There are multiple benign calcified granulomata of the spleen. Normal pancreas. Normal bilateral adrenal glands. Normal right kidney. Normal left kidney. Normal visualized stomach. Normal small intestine. There is evidence of colonic distention due to fluid and gas. There is narrowing at the anastomotic site at the rectosigmoid junction. The appendix is visualized and appears normal. There is diffuse atherosclerotic calcification of the abdominal aorta and major visceral branches. Stable 3 cm infrarenal abdominal aortic aneurysm.. Normal inferior vena cava. Increased markings in the peritoneal fat. This may represent postoperative change. A Maldonado catheter is seen within the urinary bladder. The urinary bladder is almost completely empty. Small amount of free fluid in the pelvis as well as in the paracolic gutters bilaterally. Postsurgical changes are seen in the region of the umbilicus. Small bilateral inguinal hernias containing fat. There are diffuse degenerative changes of the visualized lumbar spine. Stable appearance of the left hip joint suggestive of avascular necrosis. CT/Abdomen/Pelvis WITH Contrast IMPRESSION: Small bilateral pleural effusions with bibasilar infiltrates and/or atelectasis. Small amount of perihepatic as well as perisplenic fluid as well as fluid in the pelvis. Small amount of fluid in the [place] gutters. Postoperative changes in the region of the umbilicus there Distention of the ascending colon and transverse colon and descending colon down to the region of the anastomosis at the rectosigmoid junction. A Maldonado catheter seen within the urinary bladder. Electronically Signed: Johnny Neil MD at 13:48 EST , Service support ,
--- NOTE | 2018-05-13 10:30 | PCM.PN.SRG ---
Patient Problems: Active and Suspected Problems (Last Reviewed 05/04/18 @ 08:39 by Prasanth Pradhan MD) Gross hematuria (Acute) Overweight (Acute) MASOOD (obstructive sleep apnea) (Acute) non-compliant with CPAP Peripheral arterial disease (Suspected) Colovesical fistula (Acute) Subjective: Patient evaluated resting comfortably in bed. He notes nausea. He has been passing flatus. He is having diarrhea. Left lower extremity positive for acute DVT. - Physical Exam General: Alert, Oriented x3, Cooperative Abdomen: Hypoactive Bowel Sounds, Distended, Tender - surrounding the incision, - - Incision c/d/i. Vital Signs Temp Pulse Resp BP Pulse Ox 98.2 F 104 H 20 H 90/49 L 94 05/13/18 10:26 05/13/18 10:26 05/13/18 10:26 05/13/18 10:26 05/13/18 10:26 Oxygen Flow Rate (L/min) 5 Oxygen Delivery Method Nasal Cannula Weight: 220 lb 7.396 oz Body Mass Index (BMI) 29.9 Orthostatic Vital Signs Start: 05/13/18 10:09 Freq: q24h Status: Active Protocol: Activity Type Activity Date Activity User E-Sign Co-Sign Detail Recorded Client Recorded Date Recorded By Document 05/13/18 09:25 MLB [id number] 05/13/18 10:10 MLB 05/13/18 09:25 Orthostatic Vitals Standing -Blood Pressure (90/60-120/80) 73/56 L -Extremity Use Left Arm -Pulse Rate (60-100) 110 H Sitting -Blood Pressure (90/60-120/80) 82/64 L -Extremity Use Left Arm -Pulse Rate (60-100) 100 Lying -Blood Pressure (90/60-120/80) 110/68 -Extremity Use Left Arm -Pulse Rate (60-100) 103 H Intake and Output for Last 24 Hours 05/11/18 05/12/18 05/13/18 23:59 23:59 23:59 Intake Total 2076.8 / 2076.8 2184.6 / 2184.6 457.8 / 457.8 Output Total 2725 / 2725 1665 / 1665 925 / 925 Balance -648.2 / -648.2 519.6 / 519.6 -467.2 / -467.2 Laboratory Tests Past 24 Hrs 05/13/18 05/13/18 05/13/18 05:15 05:15 05:15 WBC 12.2 H RBC 2.81 L Hgb 10.6 L Hct 32.9 L MCV 117.1 H MCH 37.7 H MCHC 32.2 RDW 13.9 RDW Differential 57.0 H Plt Count 291 MPV 11.2 Immature Gran % (Auto) 1.200 H Neut % (Auto) 75.5 H Lymph % (Auto) 9.5 L [place] % (Auto) 12.2 H Eos % (Auto) 1.4 Baso % (Auto) 0.2 Absolute Neuts (auto) 9.2 H Absolute Lymphs (auto) 1.16 Total Counted Not Reportable PT 18.5 H INR 1.6 Sodium 138 Potassium 2.9 L Chloride 97 L Carbon Dioxide 32.0 Anion Gap 9 BUN 6 L Creatinine 0.67 L Estim Creat Clear Calc 127.08 Est GFR (MDRD) Af Amer 154 Est GFR (MDRD) Non-Af 128 BUN/Creatinine Ratio 8.9 L Glucose 140 H Calcium 7.8 L Medical Necessity - Tobacco Use Smoking Status: Current every day smoker Tobacco Use: Cigarettes Assessment/Plan All Active Problems (Last Reviewed 05/04/18 @ 08:39 by Prasanth Pradhan MD) Gross hematuria (Acute) Overweight (Acute) MASOOD (obstructive sleep apnea) (Acute) Colovesical fistula (Acute) I am following this patient with Dr. Pradhan S/p sigmoid colectomy and cystoscopy for colovesical fistula in conjunction with Eddy Positive for LLE DVT on Lovenox and Coumadin Labs reviewed Encourage ambulation Discussed patient with Dr. Pradhan Will obtain CT scan of the abdomen/pelvis with IV, oral and rectal contrast to evaluate abdominal distention. We will continue to closely monitor this patient Code Visit Inpatient E&M: 56303 Subs Hosp L1 - No charge/ post-op
--- NOTE | 2018-05-13 10:36 | PN.SURG_ITS ---
Patient Problems: Active and Suspected Problems (Last Reviewed 05/04/18 @ 08:39 by Prasanth Pradhan MD) Gross hematuria (Acute) Overweight (Acute) MASOOD (obstructive sleep apnea) (Acute) non-compliant with CPAP Peripheral arterial disease (Suspected) Colovesical fistula (Acute) Subjective: Patient evaluated resting comfortably in bed. He notes nausea. He has been passing flatus. He is having diarrhea. Left lower extremity positive for acute DVT. - Physical Exam General: Alert, Oriented x3, Cooperative Abdomen: Hypoactive Bowel Sounds, Distended, Tender - surrounding the incision, - - Incision c/d/i. Vital Signs Temp Pulse Resp BP Pulse Ox 98.2 F 104 H 20 H 90/49 L 94 05/13/18 10:26 05/13/18 10:26 05/13/18 10:26 05/13/18 10:26 05/13/18 10:26 Oxygen Flow Rate (L/min) 5 Oxygen Delivery Method Nasal Cannula Weight: 220 lb 7.396 oz Body Mass Index (BMI) 29.9 Orthostatic Vital Signs Start: 05/13/18 10:09 Freq: q24h Status: Active Protocol: Activity Type Activity Date Activity User E-Sign Co-Sign Detail Recorded Client Recorded Date Recorded By Document 05/13/18 09:25 MLB [id number] 05/13/18 10:10 MLB 05/13/18 09:25 Orthostatic Vitals Standing -Blood Pressure (90/60-120/80) 73/56 L -Extremity Use Left Arm -Pulse Rate (60-100) 110 H Sitting -Blood Pressure (90/60-120/80) 82/64 L -Extremity Use Left Arm -Pulse Rate (60-100) 100 Lying -Blood Pressure (90/60-120/80) 110/68 -Extremity Use Left Arm -Pulse Rate (60-100) 103 H Intake and Output for Last 24 Hours 05/11/18 05/12/18 05/13/18 23:59 23:59 23:59 Intake Total 2076.8 / 2076.8 2184.6 / 2184.6 457.8 / 457.8 Output Total 2725 / 2725 1665 / 1665 925 / 925 Balance -648.2 / -648.2 519.6 / 519.6 -467.2 / -467.2 Laboratory Tests Past 24 Hrs 05/13/18 05/13/18 05/13/18 05:15 05:15 05:15 WBC 12.2 H RBC 2.81 L Hgb 10.6 L Hct 32.9 L MCV 117.1 H MCH 37.7 H MCHC 32.2 RDW 13.9 RDW Differential 57.0 H Plt Count 291 MPV 11.2 Immature Gran % (Auto) 1.200 H Neut % (Auto) 75.5 H Lymph % (Auto) 9.5 L [place] % (Auto) 12.2 H Eos % (Auto) 1.4 Baso % (Auto) 0.2 Absolute Neuts (auto) 9.2 H Absolute Lymphs (auto) 1.16 Total Counted Not Reportable PT 18.5 H INR 1.6 Sodium 138 Potassium 2.9 L Chloride 97 L Carbon Dioxide 32.0 Anion Gap 9 BUN 6 L Creatinine 0.67 L Estim Creat Clear Calc 127.08 Est GFR (MDRD) Af Amer 154 Est GFR (MDRD) Non-Af 128 BUN/Creatinine Ratio 8.9 L Glucose 140 H Calcium 7.8 L Medical Necessity - Tobacco Use Smoking Status: Current every day smoker Tobacco Use: Cigarettes Assessment/Plan All Active Problems (Last Reviewed 05/04/18 @ 08:39 by Prasanth Pradhan MD) Gross hematuria (Acute) Overweight (Acute) MAOSOD (obstructive sleep apnea) (Acute) Colovesical fistula (Acute) I am following this patient with Dr. Pradhan S/p sigmoid colectomy and cystoscopy for colovesical fistula in conjunction with Eddy Positive for LLE DVT on Lovenox and Coumadin Labs reviewed Encourage ambulation Discussed patient with Dr. Pradhan Will obtain CT scan of the abdomen/pelvis with IV, oral and rectal contrast to evaluate abdominal distention. We will continue to closely monitor this patient Code Visit Inpatient E&M: 68129 Sub[facility] Hosp L1 - No charge/ post-op
--- NOTE | 2018-05-13 11:14 | CASEMGMT ---
SW attempted to talk with patient about d/c plan. SW mentioned going somewhere short term for rehab and he was not sure. He seemed pretty sleepy and he was getting a breathing treatment. He asked SW to talk with him a little later. However, his RN came in stating he was going to be moved to ICU. SW told him we will follow him for d/c planning. Riana MANCINI MSW
--- NOTE | 2018-05-13 11:25 | NURSING ---
REPORT CALLED TO GILBERTO SMITH IN ICU
[2018-05-13 11:58] LABS: Lactic Acid 2.7 mmol/L (0.4-2.0)
--- NOTE | 2018-05-13 12:06 | NURSING ---
Pt's father, Mckinley Magaña, notified of ICU tx at this time.
--- NOTE | 2018-05-13 13:31 | PCM.PN.HOSP ---
Patient Problems: Active and Suspected Problems (Last Reviewed 05/04/18 @ 08:39 by Prasanth Pradhan MD) Gross hematuria (Acute) Overweight (Acute) MSAOOD (obstructive sleep apnea) (Acute) non-compliant with CPAP Peripheral arterial disease (Suspected) Colovesical fistula (Acute) Subjective: Patient seen and examined this morning. He was noted to be hypotensive with blood pressure dropping to the 70s systolic. Orthostatics checked were positive. Patient complained of dizziness on sitting up which resolved when he laid down. He also complained of worsening abdominal distention but denied any abdominal pain. He denied any fever or chills, palpitations or chest pain, diarrhea or vomiting. Of note, patient was initially given a bolus of 500 cc of normal saline. However, blood pressure did not respond significantly and went up only to the 80s. Patient was then noted to be febrile with temperature going up to 102.9. He also became tachycardic with heart rate going up to 141. He remained in A. fib. He was also tachypneic with respiratory rate going up to 30 was also noted to have slight white cell count elevation of 12.8. By this criteria, patient met SIRS criteria 4 out of 4. With blood pressure not been responsive to IV fluids, though he had not received the 30 mill per KG of IV fluid as per sepsis protocol, patient was deemed to be septic. However he could not be classified a septic shock as he had not received IV fluid resuscitation. Sepsis protocol. In light of him having A. fib, he could also qualify for A. fib with RVR. Decision was therefore made to transfer the patient emergently to ICU. Case discussed personally by hospitalist with ornamental metal worker apprentice prior to patient being transferred. Vitals/I&O's: Vital Signs Temp Pulse Resp BP Pulse Ox 102.9 F H 141 H 30 H 87/42 L 92 05/13/18 11:09 05/13/18 11:09 05/13/18 11:09 05/13/18 11:09 05/13/18 11:09 Oxygen Flow Rate (L/min) 5 Oxygen Delivery Method Nasal Cannula Weight: 220 lb 7.396 oz Body Mass Index (BMI) 29.9 Orthostatic Vital Signs Start: 05/13/18 10:09 Freq: q24h Status: Active Protocol: Activity Type Activity Date Activity User E-Sign Co-Sign Detail Recorded Client Recorded Date Recorded By Document 05/13/18 09:25 MLB [id number] 05/13/18 10:10 MLB 05/13/18 09:25 Orthostatic Vitals Standing -Blood Pressure (90/60-120/80) 73/56 L -Extremity Use Left Arm -Pulse Rate (60-100) 110 H Sitting -Blood Pressure (90/60-120/80) 82/64 L -Extremity Use Left Arm -Pulse Rate (60-100) 100 Lying -Blood Pressure (90/60-120/80) 110/68 -Extremity Use Left Arm -Pulse Rate (60-100) 103 H Intake and Output for Last 24 Hours 05/11/18 05/12/18 05/13/18 23:59 23:59 23:59 Intake Total 2076.8 / 2076.8 2184.6 / 2184.6 1067.8 / 1067.8 Output Total 2725 / 2725 1665 / 1665 975 / 975 Balance -648.2 / -648.2 519.6 / 519.6 92.8 / 92.8 General: Alert, Oriented x3, Cooperative, - - mildly distressed HEENT: Atraumatic, PERRLA, EOMI, Normocephalic Oral: Moist Mucosa Neck: Supple, No JVD, Negative Carotid Bruits, Negative Hepatojugular Reflux, No Nodes Lungs: - - decreased breath sounds bibasally; no wheezes or crackles. tachypneic. on 5L of oxygen Cardiovascular: Regular rate, Regular Rhythm, Normal S1, Normal S2, No murmurs Abdomen: Bowel Sounds Present, Soft, - - markedly distended, and tympanitic to percussion. Extremities: No clubbing, No cyanosis, No edema, Capillary Refill Less than 3 Seconds Skin: No rashes, No breakdown Musculoskeletal: No Tenderness to Palpation of Joints or Extremities Lymphatic: No Cervical, Supraclavicular, or Inguinal Adenopathy Neurological: Cranial nerves II-XII grossly intact, Neuro grossly intact, Motor Exam 5/5 strength throughout Psych/Mental Status: Normal Affect, Anxious, Alert and oriented to time, place, person, mood and affect Laboratory Results 05/13/18 05:15: WBC 12.2 H, RBC 2.81 L, Hgb 10.6 L, Hct 32.9 L, MCV 117.1 H, MCH 37.7 H, MCHC 32.2, RDW 13.9, RDW Differential 57.0 H, Plt Count 291, MPV 11.2, Immature Gran % (Auto) 1.200 H, Neut % (Auto) 75.5 H, Lymph % (Auto) 9.5 L, [place] % (Auto) 12.2 H, Eos % (Auto) 1.4, Baso % (Auto) 0.2, Absolute Neuts (auto) 9.2 H, Absolute Lymphs (auto) 1.16, Total Counted Not Reportable 05/13/18 05:15: PT 18.5 H, INR 1.6 05/13/18 05:15: Sodium 138, Potassium 2.9 L, Chloride 97 L, Carbon Dioxide 32.0, Anion Gap 9, BUN 6 L, Creatinine 0.67 L, Estim Creat Clear Calc 127.08, Est GFR (MDRD) Af Amer 154, Est GFR (MDRD) Non-Af 128, BUN/Creatinine Ratio 8.9 L, Glucose 140 H, Calcium 7.8 L 05/13/18 11:26: Lactic Acid 2.7 H Diagnostic Data Chest X-Ray 05/12/18 16:45 IMPRESSION: 1. Decreased bibasilar atelectasis. No organizing infiltrates seen. 2. Gaseous distention of bowel in the upper abdomen, incompletely visualized. 3. Mild cardiomegaly. Electronically Signed: Tunde Cole MD at 17:03 EST , Service support , Current Medications Albuterol/Ipratropium (Duoneb) 3 ml INHALATION Q4H.RT [facility] Last Admin: 05/13/18 11:05 Dose: 3 ml Atorvastatin Calcium (Lipitor) 40 mg PO HS [facility] Last Admin: 05/12/18 21:23 Dose: 40 mg Bisacodyl (Dulcolax) 5 mg PO DAILY PRN PRN PRN Reason: Constipation Docusate Sodium (Colace) 100 mg PO BID [facility] Last Admin: 05/13/18 08:21 Dose: Not Given Enoxaparin Sodium (Lovenox) 100 mg SC Q12 [facility] Last Admin: 05/13/18 08:21 Dose: 100 mg Piperacillin Sod/Tazobactam (Sod 3.375 gm/ Sodium Chloride) 50 mls @ 12.5 mls/hr IV Q8 [facility] Last Admin: 05/13/18 05:04 Dose: 12.5 mls/hr Magnesium Hydroxide (Milk Of Magnesia) 30 ml PO DAILY PRN PRN Reason: Constipation Magnesium Oxide (Mag-Ox 400) 400 mg PO DAILY [facility] Last Admin: 05/13/18 08:22 Dose: 400 mg Ondansetron HCl (Zofran) 4 mg IV Q6H PRN PRN PRN Reason: Nausea Oxycodone HCl (Oxyir) 5 mg PO Q4H PRN PRN PRN Reason: Moderate Pain (pain scale 4-5) Last Admin: 05/13/18 08:24 Dose: 5 mg Potassium Chloride (K-Dur) 10 meq PO DAILY [facility] Last Admin: 05/13/18 08:22 Dose: 10 meq Psyllium Hydrophilic Mucilloid (Metamucil) 1 packet PO DAILY PRN PRN PRN Reason: CONSTIPATION Sodium Chloride () 5 - 15 ml IV UD PRN PRN Reason: SALINE FLUSH Last Admin: 05/12/18 21:23 Dose: 10 ml Warfarin Sodium (Coumadin (Pbkc)) 5 mg PO DAILY@1700 [facility] Last Admin: 05/12/18 16:12 Dose: 5 mg Zolpidem Tartrate (Ambien (Generic)) 5 mg PO QHS PRN PRN PRN Reason: INSOMNIA Last Admin: 05/12/18 21:37 Dose: 5 mg Medical Necessity - Tobacco Use Smoking Status: Current every day smoker Tobacco Use: Cigarettes Assessment/Plan All Active Problems (Last Reviewed 05/04/18 @ 08:39 by Prasanth Pradhan MD) Gross hematuria (Acute) Overweight (Acute) MASOOD (obstructive sleep apnea) (Acute) Colovesical fistula (Acute) 1. Septic shock due to anastomotic leak and intraabdominal abscess patient had been hypotensive and was receiving IV fluid boluses over the weekend. BP meds were held he remained hypotensive today, and was not responding well to fluid boluses. orthostatics checked were also positive subsequently developed fever, tachycardia, tachypnea and an elevated wbc of 12.2 today lactic acid is 2.7 patient emergently transferred to ICU today; didnt respond to IVF per sepsis protocol in the ICU so will be started on pressors after central line is placed antibiotics broadened to IV meropenem; had completed 7 days of IV zosyn general surgery on board; getting abdominal CT scan to evaluate marked abdominal distension 2. LLE DVT: developed after sugery. Coumadin with Lovenox for bridging. INR today is 1.6. 3. Colovesical fistula s/p colectomy complicated by anastomotic leak and intra-abdominal abscess today is POD 6 complains of marked abdominal distension,. CT abdomen and pelvis ordered per general surgery per general surgery note, looks like he may be an anastomotic leak. He therefore will need exploration and evacuation of abdominal wall abscess and creation of loop ileostomy. management as per general surgery 4. Acute hypoxic respiratory failure has been on 5L of oxygen since surgery, and unable to be weaned down became more tachypneic today, breathing up to the 30s to be started on bipap in ICU; if he doesn't tolerate it, will need to be intubated 5. Gross hematuria: resolved. Maldonado catheter in place. to follow up with urology on outpatient basis 6. Possible gout: Patient has been complaining of foot pain which states makes it difficult for him to stand. No visible swelling and tenderness. Will monitor and if pain persists, will consider start statin steroids and colchicine. 7. CAD and ischemic cardiomyopathy has known EF of 30% has a history of left atrial appendage thrombus. cardiology on board Beta-blockers, Lasix and lisinopril on hold on account of hypo- 8.Hypertension: Carvedilol, lisinopril on hold on account of hypotension. 9. A. fib: Developed RVR today which is likely as a result of septic shock. Will monitor with treatment of septic shock. 10. MASOOD: Noncompliant with CPAP. To be started on CPAP in the ICU and if it is not tolerated, may need to be intubated. DVT prophylaxis: Coumadin and Lovenox for bridging Code Visit Inpatient E&M: [id number] [facility] L3
--- NOTE | 2018-05-13 13:38 | PN_ITS ---
Patient Problems: Active and Suspected Problems (Last Reviewed 05/04/18 @ 08:39 by Prasanth Pradhan MD) Gross hematuria (Acute) Overweight (Acute) MASOOD (obstructive sleep apnea) (Acute) non-compliant with CPAP Peripheral arterial disease (Suspected) Colovesical fistula (Acute) Subjective: Patient seen and examined this morning. He was noted to be hypotensive with blood pressure dropping to the 70s systolic. Orthostatics checked were positive. Patient complained of dizziness on sitting up which resolved when he laid down. He also complained of worsening abdominal distention but denied any abdominal pain. He denied any fever or chills, palpitations or chest pain, diarrhea or vomiting. Of note, patient was initially given a bolus of 500 cc of normal saline. However, blood pressure did not respond significantly and went up only to the 80s. Patient was then noted to be febrile with temperature going up to 102.9. He also became tachycardic with heart rate going up to 141. He remained in A. fib. He was also tachypneic with respiratory rate going up to 30 was also noted to have slight white cell count elevation of 12.8. By this criteria, patient met SIRS criteria 4 out of 4. With blood pressure not been responsive to IV fluids, though he had not received the 30 mill per KG of IV fluid as per sepsis protocol, patient was deemed to be septic. However he could not be classified a septic shock as he had not received IV fluid resuscitation. Sepsis protocol. In light of him having A. fib, he could also qualify for A. fib with RVR. Decision was therefore made to transfer the patient emergently to ICU. Case discussed personally by hospitalist with grounds foreman prior to patient being transferred. Vitals/I&O's: Vital Signs Temp Pulse Resp BP Pulse Ox 102.9 F H 141 H 30 H 87/42 L 92 05/13/18 11:09 05/13/18 11:09 05/13/18 11:09 05/13/18 11:09 05/13/18 11:09 Oxygen Flow Rate (L/min) 5 Oxygen Delivery Method Nasal Cannula Weight: 220 lb 7.396 oz Body Mass Index (BMI) 29.9 Orthostatic Vital Signs Start: 05/13/18 10:09 Freq: q24h Status: Active Protocol: Activity Type Activity Date Activity User E-Sign Co-Sign Detail Recorded Client Recorded Date Recorded By Document 05/13/18 09:25 MLB [id number] 05/13/18 10:10 MLB 05/13/18 09:25 Orthostatic Vitals Standing -Blood Pressure (90/60-120/80) 73/56 L -Extremity Use Left Arm -Pulse Rate (60-100) 110 H Sitting -Blood Pressure (90/60-120/80) 82/64 L -Extremity Use Left Arm -Pulse Rate (60-100) 100 Lying -Blood Pressure (90/60-120/80) 110/68 -Extremity Use Left Arm -Pulse Rate (60-100) 103 H Intake and Output for Last 24 Hours 05/11/18 05/12/18 05/13/18 23:59 23:59 23:59 Intake Total 2076.8 / 2076.8 2184.6 / 2184.6 1067.8 / 1067.8 Output Total 2725 / 2725 1665 / 1665 975 / 975 Balance -648.2 / -648.2 519.6 / 519.6 92.8 / 92.8 General: Alert, Oriented x3, Cooperative, - - mildly distressed HEENT: Atraumatic, PERRLA, EOMI, Normocephalic Oral: Moist Mucosa Neck: Supple, No JVD, Negative Carotid Bruits, Negative Hepatojugular Reflux, No Nodes Lungs: - - decreased breath sounds bibasally; no wheezes or crackles. tachypneic. on 5L of oxygen Cardiovascular: Regular rate, Regular Rhythm, Normal S1, Normal S2, No murmurs Abdomen: Bowel Sounds Present, Soft, - - markedly distended, and tympanitic to percussion. Extremities: No clubbing, No cyanosis, No edema, Capillary Refill Less than 3 Seconds Skin: No rashes, No breakdown Musculoskeletal: No Tenderness to Palpation of Joints or Extremities Lymphatic: No Cervical, Supraclavicular, or Inguinal Adenopathy Neurological: Cranial nerves II-XII grossly intact, Neuro grossly intact, Motor Exam 5/5 strength throughout Psych/Mental Status: Normal Affect, Anxious, Alert and oriented to time, place, person, mood and affect Laboratory Results 05/13/18 05:15: WBC 12.2 H, RBC 2.81 L, Hgb 10.6 L, Hct 32.9 L, MCV 117.1 H, MCH 37.7 H, MCHC 32.2, RDW 13.9, RDW Differential 57.0 H, Plt Count 291, MPV 11.2, Immature Gran % (Auto) 1.200 H, Neut % (Auto) 75.5 H, Lymph % (Auto) 9.5 L, [place] % (Auto) 12.2 H, Eos % (Auto) 1.4, Baso % (Auto) 0.2, Absolute Neuts (auto) 9.2 H, Absolute Lymphs (auto) 1.16, Total Counted Not Reportable 05/13/18 05:15: PT 18.5 H, INR 1.6 05/13/18 05:15: Sodium 138, Potassium 2.9 L, Chloride 97 L, Carbon Dioxide 32.0, Anion Gap 9, BUN 6 L, Creatinine 0.67 L, Estim Creat Clear Calc 127.08, Est GFR (MDRD) Af Amer 154, Est GFR (MDRD) Non-Af 128, BUN/Creatinine Ratio 8.9 L, Glucose 140 H, Calcium 7.8 L 05/13/18 11:26: Lactic Acid 2.7 H Diagnostic Data Chest X-Ray 05/12/18 16:45 IMPRESSION: 1. Decreased bibasilar atelectasis. No organizing infiltrates seen. 2. Gaseous distention of bowel in the upper abdomen, incompletely visualized. 3. Mild cardiomegaly. Electronically Signed: Tunde Cole MD at 17:03 EST , Service support , Current Medications Albuterol/Ipratropium (Duoneb) 3 ml INHALATION Q4H.RT [facility] Last Admin: 05/13/18 11:05 Dose: 3 ml Atorvastatin Calcium (Lipitor) 40 mg PO HS [facility] Last Admin: 05/12/18 21:23 Dose: 40 mg Bisacodyl (Dulcolax) 5 mg PO DAILY PRN PRN PRN Reason: Constipation Docusate Sodium (Colace) 100 mg PO BID [facility] Last Admin: 05/13/18 08:21 Dose: Not Given Enoxaparin Sodium (Lovenox) 100 mg SC Q12 [facility] Last Admin: 05/13/18 08:21 Dose: 100 mg Piperacillin Sod/Tazobactam (Sod 3.375 gm/ Sodium Chloride) 50 mls @ 12.5 mls/hr IV Q8 [facility] Last Admin: 05/13/18 05:04 Dose: 12.5 mls/hr Magnesium Hydroxide (Milk Of Magnesia) 30 ml PO DAILY PRN PRN Reason: Constipation Magnesium Oxide (Mag-Ox 400) 400 mg PO DAILY [facility] Last Admin: 05/13/18 08:22 Dose: 400 mg Ondansetron HCl (Zofran) 4 mg IV Q6H PRN PRN PRN Reason: Nausea Oxycodone HCl (Oxyir) 5 mg PO Q4H PRN PRN PRN Reason: Moderate Pain (pain scale 4-5) Last Admin: 05/13/18 08:24 Dose: 5 mg Potassium Chloride (K-Dur) 10 meq PO DAILY [facility] Last Admin: 05/13/18 08:22 Dose: 10 meq Psyllium Hydrophilic Mucilloid (Metamucil) 1 packet PO DAILY PRN PRN PRN Reason: CONSTIPATION Sodium Chloride () 5 - 15 ml IV UD PRN PRN Reason: SALINE FLUSH Last Admin: 05/12/18 21:23 Dose: 10 ml Warfarin Sodium (Coumadin (Pbkc)) 5 mg PO DAILY@1700 [facility] Last Admin: 05/12/18 16:12 Dose: 5 mg Zolpidem Tartrate (Ambien (Generic)) 5 mg PO QHS PRN PRN PRN Reason: INSOMNIA Last Admin: 05/12/18 21:37 Dose: 5 mg Medical Necessity - Tobacco Use Smoking Status: Current every day smoker Tobacco Use: Cigarettes Assessment/Plan All Active Problems (Last Reviewed 05/04/18 @ 08:39 by Prasanth Pradhan MD) Gross hematuria (Acute) Overweight (Acute) MASOOD (obstructive sleep apnea) (Acute) Colovesical fistula (Acute) 1. Septic shock due to anastomotic leak and intraabdominal abscess * patient had been hypotensive and was receiving IV fluid boluses over the weekend. BP meds were held * he remained hypotensive today, and was not responding well to fluid boluses. * orthostatics checked were also positive * subsequently developed fever, tachycardia, tachypnea and an elevated wbc of 12.2 today * lactic acid is 2.7 * patient emergently transferred to ICU today; didnt respond to IVF per sepsis protocol in the ICU so will be started on pressors after central line is placed * antibiotics broadened to IV meropenem; had completed 7 days of IV zosyn * general surgery on board; getting abdominal CT scan to evaluate marked abdominal distension * 2. LLE DVT: developed after sugery. * Coumadin with Lovenox for bridging. * INR today is 1.6. * 3. Colovesical fistula s/p colectomy complicated by anastomotic leak and intra- abdominal abscess * today is POD 6 * complains of marked abdominal distension,. * CT abdomen and pelvis ordered per general surgery * per general surgery note, looks like he may be an anastomotic leak. He therefore will need exploration and evacuation of abdominal wall abscess and creation of loop ileostomy. * management as per general surgery * 4. Acute hypoxic respiratory failure * has been on 5L of oxygen since surgery, and unable to be weaned down * became more tachypneic today, breathing up to the 30s * to be started on bipap in ICU; if he doesn't tolerate it, will need to be intubated * 5. Gross hematuria: resolved. Maldonado catheter in place. to follow up with urology on outpatient basis 6. Possible gout: * Patient has been complaining of foot pain which states makes it difficult for him to stand. No visible swelling and tenderness. Will monitor and if pain persists, will consider start statin steroids and colchicine. * 7. CAD and ischemic cardiomyopathy * has known EF of 30% * has a history of left atrial appendage thrombus. cardiology on board * Beta-blockers, Lasix and lisinopril on hold on account of hypo- * 8.Hypertension: Carvedilol, lisinopril on hold on account of hypotension. 9. A. fib: Developed RVR today which is likely as a result of septic shock. Will monitor with treatment of septic shock. 10. MASOOD: Noncompliant with CPAP. To be started on CPAP in the ICU and if it is not tolerated, may need to be intubated. DVT prophylaxis: Coumadin and Lovenox for bridging Code Visit Inpatient E&M: 45146 [facility] L3
--- NOTE | 2018-05-13 13:40 | PCM.PN.INT ---
Subjective: The patient was previously being followed by Dr. 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 I was contacted on the morning of May 13, as the patient had developed a new high-grade fever, tachycardia and hypotension while in the progressive care unit. While he did receive a small IV fluid bolus, he remained hypotensive. Of note, the patient's clinical state is complicated by the fact that he has chronic underlying systolic heart failure with an ejection fraction of 20%. Therefore, the decision was made to transfer the patient back to the medical intensive care unit for ongoing management. The patient is currently overall net +4.2 L for the admission. The patient's potassium is low at 2.9 and his lactate is mildly elevated 2.7. A CT abdomen/pelvis obtained by general surgery did reveal evidence of an anastomotic leak, which will require surgical intervention. Following his arrival to the ICU, the patient has had a steadily increasing supplemental oxygen requirement. In addition, his blood pressures have remained tenuous. Therefore, a central venous catheter will be placed and the patient will be started on BiPAP. The patient's antibiotics will also be broadened. Objective: The patient's most recent lab work, culture data and imaging studies have all been personally reviewed. Blood cultures are currently pending. General: Alert, Cooperative HEENT: Atraumatic, PERRLA, Normocephalic Oral: No Gingival or Mucosal Lesions/ Ulcerations Neck: Supple, No Nodes, Trachea Midline Lungs: No rhonchi, No wheeze, No rales, Diminished, Short of Breath, Tachypneic Cardiovascular: Normal S1, Normal S2, No murmurs, Tachycardic Abdomen: Bowel Sounds Present, Soft, Distended Extremities: No clubbing, No cyanosis, No edema Skin: No breakdown Musculoskeletal: No Tenderness to Palpation of Joints or Extremities Lymphatic: No Cervical, Supraclavicular, or Inguinal Adenopathy Neurological: Neuro grossly intact Psych/Mental Status: Normal Affect, Appropriate Vital Signs Temp Pulse Resp BP Pulse Ox 39.4 C H 141 H 30 H 87/42 L 92 05/13/18 11:09 05/13/18 11:09 05/13/18 11:09 05/13/18 11:05/13/18 11:09 Oxygen Flow Rate (L/min) 5 Oxygen Delivery Method Nasal Cannula Weight: 220 lb 7.396 oz Body Mass Index (BMI) 29.9 Orthostatic Vital Signs Start: 05/13/18 10:09 Freq: q24h Status: Active Protocol: Activity Type Activity Date Activity User E-Sign Co-Sign Detail Recorded Client Recorded Date Recorded By Document 05/13/18 09:25 MLB [id number] 05/13/18 10:10 MLB 05/13/18 09:25 Orthostatic Vitals Standing -Blood Pressure (90/60-120/80) 73/56 L -Extremity Use Left Arm -Pulse Rate (60-100) 110 H Sitting -Blood Pressure (90/60-120/80) 82/64 L -Extremity Use Left Arm -Pulse Rate (60-100) 100 Lying -Blood Pressure (90/60-120/80) 110/68 -Extremity Use Left Arm -Pulse Rate (60-100) 103 H Intake and Output for Last 24 Hours 05/11/18 05/12/18 05/13/18 23:59 23:59 23:59 Intake Total 2076.8 / 2076.8 2184.6 / 2184.6 1067.8 / 1067.8 Output Total 2725 / 2725 1665 / 1665 975 / 975 Balance -648.2 / -648.2 519.6 / 519.6 92.8 / 92.8 Labs (Last 48 Hours) 05/11/18 05/12/18 05/12/18 15:00 06:05 06:05 WBC 9.9 RBC 3.00 L Hgb 11.2 L Hct 34.8 L MCV 116.0 H MCH 37.3 H MCHC 32.2 RDW 14.2 RDW Differential 60.2 H Plt Count 293 MPV 11.0 Immature Gran % (Auto) 0.500 Neut % (Auto) 67.5 Lymph % (Auto) 13.4 L Boyd % (Auto) 15.8 H Eos % (Auto) 2.5 Baso % (Auto) 0.3 Absolute Neuts (auto) 6.7 Absolute Lymphs (auto) 1.32 Total Counted Not Reportable Macrocytosis 1+ PT 16.6 H INR 1.3 Sodium 137 Potassium 3.0 L Chloride 95 L Carbon Dioxide 33.0 H Anion Gap 9 BUN 5 L Creatinine 0.62 L Estim Creat Clear Calc 137.33 Est GFR (MDRD) Af Amer 169 Est GFR (MDRD) Non-Af 140 BUN/Creatinine Ratio 8.1 L Glucose 92 Lactic Acid Calcium 8.0 L Magnesium 05/12/18 05/12/18 05/13/18 06:05 06:05 05:15 WBC 12.2 H RBC 2.81 L Hgb 10.6 L Hct 32.9 L MCV 117.1 H MCH 37.7 H MCHC 32.2 RDW 13.9 RDW Differential 57.0 H Plt Count 291 MPV 11.2 Immature Gran % (Auto) 1.200 H Neut % (Auto) 75.5 H Lymph % (Auto) 9.5 L Boyd % (Auto) 12.2 H Eos % (Auto) 1.4 Baso % (Auto) 0.2 Absolute Neuts (auto) 9.2 H Absolute Lymphs (auto) 1.16 Total Counted Not Reportable Macrocytosis PT 17.6 H INR 1.4 Sodium Potassium Chloride Carbon Dioxide Anion Gap BUN Creatinine Estim Creat Clear Calc Est GFR (MDRD) Af Amer Est GFR (MDRD) Non-Af BUN/Creatinine Ratio Glucose Lactic Acid Calcium Magnesium 1.9 05/13/18 05/13/18 05/13/18 05:15 05:15 11:26 WBC RBC Hgb Hct MCV MCH MCHC RDW RDW Differential Plt Count MPV Immature Gran % (Auto) Neut % (Auto) Lymph % (Auto) Boyd % (Auto) Eos % (Auto) Baso % (Auto) Absolute Neuts (auto) Absolute Lymphs (auto) Total Counted Macrocytosis PT 18.5 H INR 1.6 Sodium 138 Potassium 2.9 L Chloride 97 L Carbon Dioxide 32.0 Anion Gap 9 BUN 6 L Creatinine 0.67 L Estim Creat Clear Calc 127.08 Est GFR (MDRD) Af Amer 154 Est GFR (MDRD) Non-Af 128 BUN/Creatinine Ratio 8.9 L Glucose 140 H Lactic Acid 2.7 H Calcium 7.8 L Magnesium Clinical Impression(s) from Imaging Studies Abdomen/Pelvis CT 05/03/18 07:41 IMPRESSION: Large bladder mass as described causing a marked degree of bladder dilatation. Air is seen within the urinary bladder. This may be related to Maldonado catheter manipulation. If not, a colovesical fistula should be ruled out. Electronically Signed: Johnny Neil MD at 9:02 EST , Service support , Chest X-Ray 05/03/18 09:37 IMPRESSION: Mild cardiomegaly. Electronically Signed: Johnny Neil MD at 10:05 EST , Service support , Abdomen/Pelvis CT 05/04/18 07:00 IMPRESSION: Evaluation was performed to evaluate for a colovesical fistula. Please note that a study prior to injection of rectal contrast was not performed. This somewhat limits evaluation. There is hyperdense material in the bladder at time of prior study May 03, 2018 which most likely represented a hematoma. On today's examination again noted is gas as well as hyperdense material within the bladder. There is intimate association with a segment of the sigmoid colon with the urinary bladder. There is a small focus of gas within the bladder at this region. Findings would be concerning for a colovesical fistula. Correlate with urinalysis. Interval placement of a Maldonado catheter. The previously noted bladder hyperdense masslike lesion has significantly decreased in size. Likely representing a large hematoma. Recommend follow-up to ensure resolution. Diverticulosis is present. There is some thickening of the sigmoid colon with some stranding concerning for diverticulitis. Infrarenal abdominal aortic aneurysm. Decreasing right hydronephrosis. Evidence of prior granulomatous disease. Bilateral nephrolithiasis. Electronically Signed: Dawood Morrison, at 7:57 EST Tel , Service support , Chest X-Ray 05/10/18 05:55 IMPRESSION: Atelectasis and/or infiltrates at the lung bases worse on the left side with blunting of left costophrenic angle. Electronically Signed: Johnny Neil MD at 9:43 EST , Service support , Chest X-Ray 05/12/18 16:45 IMPRESSION: 1. Decreased bibasilar atelectasis. No organizing infiltrates seen. 2. Gaseous distention of bowel in the upper abdomen, incompletely visualized. 3. Mild cardiomegaly. Electronically Signed: Tunde Cole MD at 17:03 EST , Service support , Medical Necessity - Tobacco Use Smoking Status: Current every day smoker Tobacco Use: Cigarettes Assessment/Plan All Active Problems (Last Reviewed 05/04/18 @ 08:39 by Prasanth Pradhan MD) Gross hematuria (Acute) Overweight (Acute) MSAOOD (obstructive sleep apnea) (Acute) Colovesical fistula (Acute) Large bowel anastomotic leak (Acute) Sepsis associated hypotension (Acute) RECOMMENDATIONS: 1. Judicious use of supplemental IV fluids, given underlying heart failure. 2. Place central venous catheter and initiate vasopressor support to maintain hemodynamic stability. 3. Place patient on BiPAP 12/6 centimeters of water and titrate FiO2 to maintain an oxygen saturation at or above 90%. 4. Additional potassium repletion as ordered. 5. Plans for additional surgical intervention this evening. IMPRESSIONS: 1. Septic shock with concern for intra-abdominal infectious process due to anastomotic leak The patient was transferred back to the medical intensive care unit after he became septic once again in the PCU. The patient spiked a high-grade fever and developed tachycardia and worsening hypoxemia. He has received a small amount of supplemental IV fluids. His blood pressures remained tenuous at best. Therefore, a central venous catheter will be placed and he will be started on vasopressor support to maintain a mean arterial pressure at or above 65 mmHg. Antibiotics have been broadened to include meropenem. 2. Coronary artery disease/chronic systolic heart failure Continue current medical therapy. As noted above, recommend judicious use of supplemental IV fluids, given the patient's underlying cardiomyopathy. 3. Paroxysmal atrial fibrillation Continue systemic anticoagulation as ordered. 4. History of obstructive sleep apnea Recommend use of nocturnal noninvasive positive pressure ventilation as tolerated. 5. Hypokalemia Potassium repletion is currently underway. Will recheck levels in the morning. TIME: 38 minutes of critical care time, independent of procedures, was spent addressing the patient's septic shock, anastomotic leak, chronic systolic heart failure, acute respiratory failure, review of all data and collaboration with the care team. ([id number]) Code Visit 9xxxx: [id number] Critical care first hour
--- NOTE | 2018-05-13 13:47 | PN_ITS ---
Subjective: The patient was previously being followed by Dr. 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 I was contacted on the morning of May 13, as the patient had developed a new high-grade fever, tachycardia and hypotension while in the progressive care unit. While he did receive a small IV fluid bolus, he remained hypotensive. Of note, the patient's clinical state is complicated by the fact that he has chronic underlying systolic heart failure with an ejection fraction of 20%. Therefore, the decision was made to transfer the patient back to the medical intensive care unit for ongoing management. The patient is currently overall net +4.2 L for the admission. The patient's potassium is low at 2.9 and his lactate is mildly elevated 2.7. A CT abdomen/pelvis obtained by general surgery did reveal evidence of an anastomotic leak, which will require surgical intervention. Following his arrival to the ICU, the patient has had a steadily increasing supplemental oxygen requirement. In addition, his blood pressures have remained tenuous. Therefore, a central venous catheter will be placed and the patient will be started on BiPAP. The patient's antibiotics will also be broadened. Objective: The patient's most recent lab work, culture data and imaging studies have all been personally reviewed. Blood cultures are currently pending. General: Alert, Cooperative HEENT: Atraumatic, PERRLA, Normocephalic Oral: No Gingival or Mucosal Lesions/ Ulcerations Neck: Supple, No Nodes, Trachea Midline Lungs: No rhonchi, No wheeze, No rales, Diminished, Short of Breath, Tachypneic Cardiovascular: Normal S1, Normal S2, No murmurs, Tachycardic Abdomen: Bowel Sounds Present, Soft, Distended Extremities: No clubbing, No cyanosis, No edema Skin: No breakdown Musculoskeletal: No Tenderness to Palpation of Joints or Extremities Lymphatic: No Cervical, Supraclavicular, or Inguinal Adenopathy Neurological: Neuro grossly intact Psych/Mental Status: Normal Affect, Appropriate Vital Signs Temp Pulse Resp BP Pulse Ox 39.4 C H 141 H 30 H 87/42 L 92 05/13/18 11:09 05/13/18 11:09 05/13/18 11:09 05/13/18 11:05/13/18 11:09 Oxygen Flow Rate (L/min) 5 Oxygen Delivery Method Nasal Cannula Weight: 220 lb 7.396 oz Body Mass Index (BMI) 29.9 Orthostatic Vital Signs Start: 05/13/18 10:09 Freq: q24h Status: Active Protocol: Activity Type Activity Date Activity User E-Sign Co-Sign Detail Recorded Client Recorded Date Recorded By Document 05/13/18 09:25 MLB [id number] 05/13/18 10:10 MLB 05/13/18 09:25 Orthostatic Vitals Standing -Blood Pressure (90/60-120/80) 73/56 L -Extremity Use Left Arm -Pulse Rate (60-100) 110 H Sitting -Blood Pressure (90/60-120/80) 82/64 L -Extremity Use Left Arm -Pulse Rate (60-100) 100 Lying -Blood Pressure (90/60-120/80) 110/68 -Extremity Use Left Arm -Pulse Rate (60-100) 103 H Intake and Output for Last 24 Hours 05/11/18 05/12/18 05/13/18 23:59 23:59 23:59 Intake Total 2076.8 / 2076.8 2184.6 / 2184.6 1067.8 / 1067.8 Output Total 2725 / 2725 1665 / 1665 975 / 975 Balance -648.2 / -648.2 519.6 / 519.6 92.8 / 92.8 Labs (Last 48 Hours) 05/11/18 05/12/18 05/12/18 15:00 06:05 06:05 WBC 9.9 RBC 3.00 L Hgb 11.2 L Hct 34.8 L MCV 116.0 H MCH 37.3 H MCHC 32.2 RDW 14.2 RDW Differential 60.2 H Plt Count 293 MPV 11.0 Immature Gran % (Auto) 0.500 Neut % (Auto) 67.5 Lymph % (Auto) 13.4 L Nelson % (Auto) 15.8 H Eos % (Auto) 2.5 Baso % (Auto) 0.3 Absolute Neuts (auto) 6.7 Absolute Lymphs (auto) 1.32 Total Counted Not Reportable Macrocytosis 1+ PT 16.6 H INR 1.3 Sodium 137 Potassium 3.0 L Chloride 95 L Carbon Dioxide 33.0 H Anion Gap 9 BUN 5 L Creatinine 0.62 L Estim Creat Clear Calc 137.33 Est GFR (MDRD) Af Amer 169 Est GFR (MDRD) Non-Af 140 BUN/Creatinine Ratio 8.1 L Glucose 92 Lactic Acid Calcium 8.0 L Magnesium 05/12/18 05/12/18 05/13/18 06:05 06:05 05:15 WBC 12.2 H RBC 2.81 L Hgb 10.6 L Hct 32.9 L MCV 117.1 H MCH 37.7 H MCHC 32.2 RDW 13.9 RDW Differential 57.0 H Plt Count 291 MPV 11.2 Immature Gran % (Auto) 1.200 H Neut % (Auto) 75.5 H Lymph % (Auto) 9.5 L Nelson % (Auto) 12.2 H Eos % (Auto) 1.4 Baso % (Auto) 0.2 Absolute Neuts (auto) 9.2 H Absolute Lymphs (auto) 1.16 Total Counted Not Reportable Macrocytosis PT 17.6 H INR 1.4 Sodium Potassium Chloride Carbon Dioxide Anion Gap BUN Creatinine Estim Creat Clear Calc Est GFR (MDRD) Af Amer Est GFR (MDRD) Non-Af BUN/Creatinine Ratio Glucose Lactic Acid Calcium Magnesium 1.9 05/13/18 05/13/18 05/13/18 05:15 05:15 11:26 WBC RBC Hgb Hct MCV MCH MCHC RDW RDW Differential Plt Count MPV Immature Gran % (Auto) Neut % (Auto) Lymph % (Auto) Nelson % (Auto) Eos % (Auto) Baso % (Auto) Absolute Neuts (auto) Absolute Lymphs (auto) Total Counted Macrocytosis PT 18.5 H INR 1.6 Sodium 138 Potassium 2.9 L Chloride 97 L Carbon Dioxide 32.0 Anion Gap 9 BUN 6 L Creatinine 0.67 L Estim Creat Clear Calc 127.08 Est GFR (MDRD) Af Amer 154 Est GFR (MDRD) Non-Af 128 BUN/Creatinine Ratio 8.9 L Glucose 140 H Lactic Acid 2.7 H Calcium 7.8 L Magnesium Clinical Impression(s) from Imaging Studies Abdomen/Pelvis CT 05/03/18 07:41 IMPRESSION: Large bladder mass as described causing a marked degree of bladder dilatation. Air is seen within the urinary bladder. This may be related to Maldonado catheter manipulation. If not, a colovesical fistula should be ruled out. Electronically Signed: Johnny Neil MD at 9:02 EST , Service support , Chest X-Ray 05/03/18 09:37 IMPRESSION: Mild cardiomegaly. Electronically Signed: Johnny Neil MD at 10:05 EST , Service support , Abdomen/Pelvis CT 05/04/18 07:00 IMPRESSION: Evaluation was performed to evaluate for a colovesical fistula. Please note that a study prior to injection of rectal contrast was not performed. This somewhat limits evaluation. There is hyperdense material in the bladder at time of prior study May 03, 2018 which most likely represented a hematoma. On today's examination again noted is gas as well as hyperdense material within the bladder. There is intimate association with a segment of the sigmoid colon with the urinary bladder. There is a small focus of gas within the bladder at this region. Findings would be concerning for a colovesical fistula. Correlate with urinalysis. Interval placement of a Maldonado catheter. The previously noted bladder hyperdense masslike lesion has significantly decreased in size. Likely representing a large hematoma. Recommend follow-up to ensure resolution. Diverticulosis is present. There is some thickening of the sigmoid colon with some stranding concerning for diverticulitis. Infrarenal abdominal aortic aneurysm. Decreasing right hydronephrosis. Evidence of prior granulomatous disease. Bilateral nephrolithiasis. Electronically Signed: Dawood Morrison, at 7:57 EST Tel , Service support , Chest X-Ray 05/10/18 05:55 IMPRESSION: Atelectasis and/or infiltrates at the lung bases worse on the left side with blunting of left costophrenic angle. Electronically Signed: Johnny Neil MD at 9:43 EST , Service support , Chest X-Ray 05/12/18 16:45 IMPRESSION: 1. Decreased bibasilar atelectasis. No organizing infiltrates seen. 2. Gaseous distention of bowel in the upper abdomen, incompletely visualized. 3. Mild cardiomegaly. Electronically Signed: Tunde Cole MD at 17:03 EST , Service support , Medical Necessity - Tobacco Use Smoking Status: Current every day smoker Tobacco Use: Cigarettes Assessment/Plan All Active Problems (Last Reviewed 05/04/18 @ 08:39 by Prasanth Pradhan MD) Gross hematuria (Acute) Overweight (Acute) MASOOD (obstructive sleep apnea) (Acute) Colovesical fistula (Acute) Large bowel anastomotic leak (Acute) Sepsis associated hypotension (Acute) RECOMMENDATIONS: 1. Judicious use of supplemental IV fluids, given underlying heart failure. 2. Place central venous catheter and initiate vasopressor support to maintain hemodynamic stability. 3. Place patient on BiPAP 12/6 centimeters of water and titrate FiO2 to maintain an oxygen saturation at or above 90%. 4. Additional potassium repletion as ordered. 5. Plans for additional surgical intervention this evening. IMPRESSIONS: 1. Septic shock with concern for intra-abdominal infectious process due to anastomotic leak The patient was transferred back to the medical intensive care unit after he became septic once again in the PCU. The patient spiked a high-grade fever and developed tachycardia and worsening hypoxemia. He has received a small amount of supplemental IV fluids. His blood pressures remained tenuous at best. Therefore, a central venous catheter will be placed and he will be started on vasopressor support to maintain a mean arterial pressure at or above 65 mmHg. Antibiotics have been broadened to include meropenem. 2. Coronary artery disease/chronic systolic heart failure Continue current medical therapy. As noted above, recommend judicious use of supplemental IV fluids, given the patient's underlying cardiomyopathy. 3. Paroxysmal atrial fibrillation Continue systemic anticoagulation as ordered. 4. History of obstructive sleep apnea Recommend use of nocturnal noninvasive positive pressure ventilation as tolerated. 5. Hypokalemia Potassium repletion is currently underway. Will recheck levels in the morning. TIME: 38 minutes of critical care time, independent of procedures, was spent addressing the patient's septic shock, anastomotic leak, chronic systolic heart failure, acute respiratory failure, review of all data and collaboration with the care team. ([id number]) Code Visit 9xxxx: [id number] Critical care first hour
--- NOTE | 2018-05-13 14:18 | RAD_ITS ---
STUDY: X-RAY CHEST REASON FOR EXAM: Male, 62 years old. Central line placement. TECHNIQUE: Single AP portable view of the chest. COMPARISON: Comparison is made with prior study dated May 12, 2018. FINDINGS: A right-sided internal jugular venous catheter has been placed. The tip is in the proximal portion of the superior vena cava. The lungs are unchanged as compared to prior study. Stable blunting of both the phrenic angles. There is mild cardiac enlargement. Normal mediastinum and alec. Normal visualized pulmonary arteries. There is atherosclerotic tortuosity of the aortic arch and descending thoracic aorta. There are diffuse degenerative changes of the visualized thoracic spine. Normal visualized ribs, clavicles, and shoulders. There is no demonstrated abnormality of the visualized soft tissue structures of the upper abdomen. RAD/CXR for Line Placement IMPRESSION: The tip of the right internal jugular venous catheter is in the proximal portion of the superior vena cava. There is no evidence of pneumothorax. Stable appearance of the lungs. Electronically Signed: Johnny Neil MD at 15:52 EST , Service support ,
--- NOTE | 2018-05-13 14:32 | PCM.OPRPT ---
Report of Operation Date of Procedure: 05/13/18 Surgery/Procedure Performed:: Triple lumen cath insertion Description of Surgical Findings:: Central line placement procedure note Indication: IV access/hemodynamic instability/vasoactive medications Procedure: A time-out was completed to verify correct patient, indication, medication allergies, procedure, coagulation studies, informed consent signed, and equipment needed. The patient was placed in the supine position for a central line placement to the rt IJ vein. The patients rt neck was prepped using chlorhexidine and a full body sterile drape was applied. 1% lidocaine was used to anesthetize the surrounding skin. A 7fr 16 cm blue guard triple lumen catheter introduced into the internal jugular vein using the modified Seldinger technique with the assistance of ultrasound. The catheter was threaded smoothly over the guidewire, the guidewire was removed easily, nonpulsatile blood returned. All ports were aspirated of air and flushed with sterile saline. The catheter was sutured in place and covered with an occlusive dressing impregnated with chlorhexidine. Post-procedure: The patient tolerated the procedure well. Vital signs remained stable. EBL 3 cc. No complications. Chest X Ray ordered to confirm tip placement and the absence of pneumothorax. Code Visit Procedures: [id number] Insert Non-tunnel CV Cath
[2018-05-13] MEDS: Lactated Ringers 500 ML 999 ML IV (15:12)
[2018-05-13 15:29] LABS: Reflex Lactate? Y
[2018-05-13 16:21] LABS: Lactic Acid 1.1 mmol/L (0.4-2.0)
--- NOTE | 2018-05-13 16:42 | NURSING ---
PT taken to surgery by surgery staff.
[2018-05-13 18:21] LABS: Base Excess 3 mmol/L (-2 to +2); Bicarbonate 26.8 mmol/L (22-26); Blood Gas Specimen Type ALINE; FI02 100; Mode A-C; O2 Delivery Device Vent; PEEP 10; PO2 66 mmHG (75-100); RR 12; SITE OTHER; SO2 94 % (95-99); Time Given 1813; Total Carbon Dioxide 28 mmol/L; Vt 640; pCO2 35.8 mmHg (35-45); pH 7.48 (7.35-7.45)
[2018-05-13 18:22] LABS: Hematocrit 33.2 % (40-54); Hemoglobin 10.9 g/dl (13.0-16.5); Mean Corp Hgb Conc 32.8 g/gl (32-36); Mean Corpuscular Hgb 37.3 pg (27.0-32.0); Mean Corpuscular Volume 113.7 fL (80-94); Mean Platelet Vol. 10.8 fl (6.2-12.0); Platelet Count 348 K/mm3 (150-450); RBC Distribution Width CV 14.2 % (11.6-14.6); RBC Distribution Width SD 59.1 fl (35.1-43.9); Red Blood Count 2.92 M/mm3 (4.6-6.2); White Blood Count 7.7 K/mm3 (4.4-11.0)
[2018-05-13 18:23] LABS: Anion Gap 7 (5-15); BUN 8 mg/dL (7-18); BUN/Creat Ratio 10.5 RATIO (10-20); Calcium,Total 7.7 mg/dL (8.5-10.1); Chloride 100 mmol/L (98-107); Creatinine, Serum 0.76 mg/dL (0.70-1.30); EST Glomerular Filtration Rate 110 mL/min (>60); Est Glom Filt Rate - Afr Amer 133 mL/min (>60); Estimated Creatinine Clearance 112.03 ml/min; Glucose 107 mg/dL (74-106); International Normalized Ratio 1.7; Potassium 3.9 mmol/L (3.5-5.1); Prothrombin Time (Protime)PT. 19.8 SECONDS (11.7-14.9); Sodium Level 135 mmol/L (136-145)
[2018-05-13 18:24] LABS: Partial Thromboplast Time 39.6 Seconds (24.1-36.2); Scan Indicated on CBC? Y/N NO
--- NOTE | 2018-05-13 19:15 | OP.PCM_ITS ---
Problem List (1) Large bowel anastomotic leak Status: Acute (2) Sepsis associated hypotension Status: Acute Report of Operation Date of Procedure: 05/13/18 Pre-Operative Diagnosis: 1 anastomotic leak. 2. Sepsis Post-Operative Diagnosis: Same Surgery/Procedure Performed:: Exploratory laparotomy. Creation of end colostomy (Forbes's procedure) professor of criminal justice: None professor of criminal justice: Donnie Emery Co-surgeon Type of Anesthesia:: General Anesthesiologist: Shalom Melgar Specimen's removed: Sigmoid colon Drains: 15 round Malachi-Olivia drain Estimated Blood Loss (mL): 25 cc Fluids Replaced: 1700 cc lr Description of Procedure: Patient was brought into the operating room placed in the supine position under excellent general endotracheal sedation his legs were placed up in stirrups the perineum and abdomen were sterilely prepped and draped in the usual fashion. A Vi-Drape was used. Midline incision was opened some foul-smelling fluid was identified but no pus #1 PDS was then cut and the abdomen was opened purulent fluid was seen throughout the abdomen I lengthen my incision cephalad so that I can bring some of the small intestine out I removed the omental attachment that was in the pelvis and immediately encountered a significant amount of pus as well as stool. It was at this point that I decided that the best operation for him was going to be a Forbes's procedure with an end colostomy. I detached the sigmoid colon down to the rectum. It actually easily came apart. It was clear I was not going to have enough length of the colon to create a nice colostomy and therefore I sacrificed the inferior mesenteric artery tying it with a suture ligature of 0 Vicryl on both ends. Skin of the left lower quadrant was then elliptically removed. Electrocautery was used to dissect down removing some of the subcu fat a cruciate incision was made on the external fascia we split the muscles gently and then entered the posterior fascia into the abdominal cavity. I brought the end of the sigmoid through gently as to not tear the mesentery. Everything was actually quite edematous here. It was snug but not too tight. We then took our attention down into the pelvis. All the tissue was very thick and swollen and was very apparent that I was not going to be able to close the end of this rectal stump. I did not feel it was safe to do. A Maldonado catheter was placed in the rectum and we irrigated it until it was clear. This was done with normal saline. A 15 round Malachi-Olivia drain was placed in the right lower quadrant and then loop down into the pelvis. It was sutured to the skin with 3-0 nylon. Bulb suction was applied to the end of the Malachi-Olivia drain. We irrigated out the abdomen with 5 L of warm irrigation until all the irrigant was clear. I checked that the NG tube was in good placement. At this point we got an accurate needle and sponge count. We put 6 retention sutures of #2 Ethibond through the skin anterior abdominal wall but did not go into the abdomen. We stayed in the preperitoneal space here. We then got an accurate needle and sponge count. Closed the fascia with #1 PDS. Around the umbilicus I placed 3 jeffrey. Retention sutures were tied down upon rubber bumpers. The retention sutures moved freely. The colostomy was then matured with 4-0 Vicryl. Four corner sutures were used through the end of the sigmoid colon and then back down upon the colon itself then through the skin. This created a winnebago effect. The colon looked viable. It was edematous. The rest of the end of the colon was then sutured to the skin with interrupted 4-0 Vicryl sutures. Since it was so swollen I did not put any sutures down on the fascia. The wound was then packed with Betadine soaked Kerlix. An ostomy appliance was applied. The patient was then taken back to the ICU intubated. He was not on pressors. - Admit VTE Documentation VTE Present on Admission: Yes - Gastrocnemius superficial vein thrombosis VTE Mechan Device Prophylaxis: None VTE Pharm Prophylaxis ordered?: Yes
--- NOTE | 2018-05-13 19:24 | RAD_ITS ---
HISTORY: ETT AND OG PLACEMENT EXAM/TECHNIQUE: XR Chest 1 View: COMPARISON: 05/13/18 CXR. FINDINGS: # of images incl. paperwork: 1 Endotracheal tube tip mid thoracic trachea. New compared to prior. Enteric tube curls in the gastric fundus and extends into the more distal stomach off the film, partially visible, new compared to previous. Right IJ catheter unchanged. No apparent pneumothorax. Bibasilar opacities similar to previous. RAD/Chest 1 View (Portable) IMPRESSION: Interval placement endotracheal and enteric tubes as above. at 1954 Reported and signed by: Jason Goins MD Electronically Signed: Jason Goins, at 19:54 EST Tel , Service support ,
[2018-05-13] MEDS: Propofol 10MG/Ml 1,000 MG/100 ML Bottle 6 MG CONT INF (19:45)
[2018-05-13 21:41] LABS: CPK Total, Creatine Kinase 157 U/L (39-308); Triglycerides 66 mg/dL
[2018-05-13 23:30] LABS: Base Excess 4 mmol/L (-2 to +2); Bicarbonate 26.5 mmol/L (22-26); Blood Gas Specimen Type ALINE; FI02 60; Mode A-C; O2 Delivery Device Vent; PEEP 8; PO2 74 mmHG (75-100); RR 14; SITE L Radial; SO2 97 % (95-99); Time Given 2330; Total Carbon Dioxide 27 mmol/L; Vt 450; pCO2 30.6 mmHg (35-45); pH 7.55 (7.35-7.45)
[2018-05-14] VITALS (45 sets, daily range): BP systolic 72–121; BP diastolic 44–95; PULSE 90–131; RESP 12–40; TEMP 36.1–37.4; O2SAT 90–100
[2018-05-14] MEDS: 0.9% Normal Saline 1,000 ML 999 ML IV (01:44)
[2018-05-14] MEDS: fentaNYL drip 100 ML 2.5 MCG IV (03:38)
[2018-05-14 03:55] LABS: Base Excess 4 mmol/L (-2 to +2); Bicarbonate 27.8 mmol/L (22-26); Blood Gas Specimen Type ALINE; FI02 60; Mode A-C; O2 Delivery Device Vent; PEEP 8; PO2 93 mmHG (75-100); RR 12; SITE L Radial; SO2 98 % (95-99); Time Given 350; Total Carbon Dioxide 29 mmol/L; Vt 450; pCO2 37.2 mmHg (35-45); pH 7.48 (7.35-7.45)
[2018-05-14 04:08] LABS: Absolute Lymphocyte Count 1.36 X10^3/ul (0.83-4.51); Absolute Neutrophil Count 9.1 X10^3/uL (2.0-7.7); Basophil# 0.01 X10^3/uL; Basophil% 0.1 % (0-1); Eosinophil# 0.03 X10^3/uL; Eosinophils% 0.3 % (0-5); Hematocrit 35.6 % (40-54); Hemoglobin 11.6 g/dl (13.0-16.5); Lymphocyte # 1.36 X10^3/ul (4.0); Lymphocyte % 11.7 % (19-41); Mean Corp Hgb Conc 32.6 g/gl (32-36); Mean Corpuscular Hgb 36.9 pg (27.0-32.0); Mean Corpuscular Volume 113.4 fL (80-94); Mean Platelet Vol. 11.1 fl (6.2-12.0); Monocyte# 1.03 X10^3/uL; Monocyte% 8.9 % (0-10); Neutrophil # 9.08 X10^3/uL (2.7-7.7); Neutrophil % 78.2 % (47-70); POSITIVE COUNT NO; POSITIVE DIFFERENTIAL NO; POSITIVE MORPHOLOGY NO; Platelet Count 399 K/mm3 (150-450); RBC Distribution Width CV 14.6 % (11.6-14.6); RBC Distribution Width SD 60.4 fl (35.1-43.9); Red Blood Count 3.14 M/mm3 (4.6-6.2); White Blood Count 11.6 K/mm3 (4.4-11.0)
[2018-05-14 04:25] LABS: Prothrombin Time (Protime)PT. 21.8 SECONDS (11.7-14.9)
[2018-05-14 04:26] LABS: International Normalized Ratio 1.9
[2018-05-14 04:32] LABS: Anion Gap 12 (5-15); BUN 12 mg/dL (7-18); BUN/Creat Ratio 9.3 RATIO (10-20); Calcium,Total 7.6 mg/dL (8.5-10.1); Chloride 103 mmol/L (98-107); Creatinine, Serum 1.29 mg/dL (0.70-1.30); EST Glomerular Filtration Rate 60 mL/min (>60); Est Glom Filt Rate - Afr Amer 73 mL/min (>60); Glucose 97 mg/dL (74-106); Potassium 3.5 mmol/L (3.5-5.1); Sodium Level 141 mmol/L (136-145)
--- NOTE | 2018-05-14 07:01 | PCM.PN.INT ---
Subjective: The patient was seen and examined at the bedside this morning. Events from the last 24 hours have been reviewed. The patient is currently afebrile, but is requiring a small amount of Levophed to maintain hemodynamic stability. The patient did undergo exploratory laparotomy yesterday due to an anastomotic leak and subsequent sepsis. The patient underwent creation of an end colostomy. He was transferred back to the ICU still intubated after the procedure. Overnight, the patient received a small amount of IV fluid hydration due to persistent tachycardia. He also had to be started on fentanyl due to complaints of pain. This morning, despite being on sedation, the patient is alert and interacting appropriately. His sedation regimen was subsequently placed on hold and he is currently on a spontaneous breathing trial. Objective: The patient's most recent lab work, culture data and imaging studies have all been personally reviewed. Blood cultures are pending. General: Alert, Cooperative, - - Currently tolerating spontaneous mode of mechanical ventilation. HEENT: Atraumatic, PERRLA, Normocephalic Oral: No Gingival or Mucosal Lesions/ Ulcerations, - - Endotracheal and OG tubes remain in place Neck: Supple, No Nodes, Trachea Midline, - - Triple-lumen catheter currently in place Lungs: No rhonchi, No wheeze, No rales, Diminished Cardiovascular: Normal S1, Normal S2, No murmurs, Irregular Rate, Tachycardic Abdomen: Soft, Hypoactive Bowel Sounds, Distended, - - + Ostomy (intact), RICARDO drain in place Extremities: No clubbing, No cyanosis, Edema Skin: No breakdown Musculoskeletal: No Muscle Wasting Lymphatic: No Cervical, Supraclavicular, or Inguinal Adenopathy Neurological: Neuro grossly intact Vital Signs Temp Pulse Resp BP Pulse Ox 37.2 C 113 H 13 94/77 93 05/14/18 04:00 05/14/18 06:45 05/14/18 06:45 05/14/18 06:45 05/14/18 06:45 Oxygen Flow Rate (L/min) 6 Oxygen Delivery Method Bi-pap Weight: 235 lb 0.204 oz Body Mass Index (BMI) 29.9 Orthostatic Vital Signs Start: 05/13/18 10:09 Freq: q24h Status: Active Protocol: Activity Type Activity Date Activity User E-Sign Co-Sign Detail Recorded Client Recorded Date Recorded By Document 05/13/18 09:25 MLB [id number] 05/13/18 10:10 MLB 05/13/18 09:25 Orthostatic Vitals Standing -Blood Pressure (90/60-120/80) 73/56 L -Extremity Use Left Arm -Pulse Rate (60-100) 110 H Sitting -Blood Pressure (90/60-120/80) 82/64 L -Extremity Use Left Arm -Pulse Rate (60-100) 100 Lying -Blood Pressure (90/60-120/80) 110/68 -Extremity Use Left Arm -Pulse Rate (60-100) 103 H Intake and Output for Last 24 Hours 05/12/18 05/13/18 05/14/18 23:59 23:59 23:59 Intake Total 2184.6 / 2184.6 1440.8 / 1440.8 1592.3 / 1592.3 Output Total 1665 / 1665 1575 / 1575 210 / 210 Balance 519.6 / 519.6 -134.2 / -134.2 1382.3 / 1382.3 Labs (Last 48 Hours) 05/12/18 05/12/18 05/12/18 06:05 06:05 06:05 WBC 9.9 RBC 3.00 L Hgb 11.2 L Hct 34.8 L MCV 116.0 H MCH 37.3 H MCHC 32.2 RDW 14.2 RDW Differential 60.2 H Plt Count 293 MPV 11.0 Immature Gran % (Auto) 0.500 Neut % (Auto) 67.5 Lymph % (Auto) 13.4 L [place] % (Auto) 15.8 H Eos % (Auto) 2.5 Baso % (Auto) 0.3 Absolute Neuts (auto) 6.7 Absolute Lymphs (auto) 1.32 Total Counted Not Reportable Macrocytosis 1+ PT 17.6 H INR 1.4 APTT Specimen Type Sample Site pH Bicarbonate Actual POC Total CO2 Base Excess O2 Saturation O2 % ABG pCO2 ABG pO2 Rod Test Respiration Rate O2 Delivery Device Vent Mode Tidal Volume POC PEEP Blood Gas Notified Whom Blood Gas Notified Time Sodium 137 Potassium 3.0 L Chloride 95 L Carbon Dioxide 33.0 H Anion Gap 9 BUN 5 L Creatinine 0.62 L Estim Creat Clear Calc 137.33 Est GFR (MDRD) Af Amer 169 Est GFR (MDRD) Non-Af 140 BUN/Creatinine Ratio 8.1 L Glucose 92 Lactic Acid Calcium 8.0 L Magnesium Total Creatine Kinase Triglycerides 05/12/18 05/13/18 05/13/18 06:05 05:15 05:15 WBC 12.2 H RBC 2.81 L Hgb 10.6 L Hct 32.9 L MCV 117.1 H MCH 37.7 H MCHC 32.2 RDW 13.9 RDW Differential 57.0 H Plt Count 291 MPV 11.2 Immature Gran % (Auto) 1.200 H Neut % (Auto) 75.5 H Lymph % (Auto) 9.5 L [place] % (Auto) 12.2 H Eos % (Auto) 1.4 Baso % (Auto) 0.2 Absolute Neuts (auto) 9.2 H Absolute Lymphs (auto) 1.16 Total Counted Not Reportable Macrocytosis PT 18.5 H INR 1.6 APTT Specimen Type Sample Site pH Bicarbonate Actual POC Total CO2 Base Excess O2 Saturation O2 % ABG pCO2 ABG pO2 Rod Test Respiration Rate O2 Delivery Device Vent Mode Tidal Volume POC PEEP Blood Gas Notified Whom Blood Gas Notified Time Sodium Potassium Chloride Carbon Dioxide Anion Gap BUN Creatinine Estim Creat Clear Calc Est GFR (MDRD) Af Amer Est GFR (MDRD) Non-Af BUN/Creatinine Ratio Glucose Lactic Acid Calcium Magnesium 1.9 Total Creatine Kinase Triglycerides 05/13/18 05/13/18 05/13/18 05:15 11:26 15:56 WBC RBC Hgb Hct MCV MCH MCHC RDW RDW Differential Plt Count MPV Immature Gran % (Auto) Neut % (Auto) Lymph % (Auto) [place] % (Auto) Eos % (Auto) Baso % (Auto) Absolute Neuts (auto) Absolute Lymphs (auto) Total Counted Macrocytosis PT INR APTT Specimen Type Sample Site pH Bicarbonate Actual POC Total CO2 Base Excess O2 Saturation O2 % ABG pCO2 ABG pO2 Rod Test Respiration Rate O2 Delivery Device Vent Mode Tidal Volume POC PEEP Blood Gas Notified Whom Blood Gas Notified Time Sodium 138 Potassium 2.9 L Chloride 97 L Carbon Dioxide 32.0 Anion Gap 9 BUN 6 L Creatinine 0.67 L Estim Creat Clear Calc 127.08 Est GFR (MDRD) Af Amer 154 Est GFR (MDRD) Non-Af 128 BUN/Creatinine Ratio 8.9 L Glucose 140 H Lactic Acid 2.7 H 1.1 Calcium 7.8 L Magnesium Total Creatine Kinase Triglycerides 05/13/18 05/13/18 05/13/18 17:54 17:54 17:54 WBC 7.7 RBC 2.92 L Hgb 10.9 L Hct 33.2 L MCV 113.7 H MCH 37.3 H MCHC 32.8 RDW 14.2 RDW Differential 59.1 H Plt Count 348 MPV 10.8 Immature Gran % (Auto) Neut % (Auto) Lymph % (Auto) [place] % (Auto) Eos % (Auto) Baso % (Auto) Absolute Neuts (auto) Absolute Lymphs (auto) Total Counted Macrocytosis PT 19.8 H INR 1.7 APTT 39.6 H Specimen Type Sample Site pH Bicarbonate Actual POC Total CO2 Base Excess O2 Saturation O2 % ABG pCO2 ABG pO2 Rod Test Respiration Rate O2 Delivery Device Vent Mode Tidal Volume POC PEEP Blood Gas Notified Whom Blood Gas Notified Time Sodium 135 L Potassium 3.9 Chloride 100 Carbon Dioxide 28.0 Anion Gap 7 BUN 8 Creatinine 0.76 Estim Creat Clear Calc 112.03 Est GFR (MDRD) Af Amer 133 Est GFR (MDRD) Non-Af 110 BUN/Creatinine Ratio 10.5 Glucose 107 H Lactic Acid Calcium 7.7 L Magnesium Total Creatine Kinase Triglycerides 05/13/18 05/13/18 05/13/18 18:13 21:00 23:25 WBC RBC Hgb Hct MCV MCH MCHC RDW RDW Differential Plt Count MPV Immature Gran % (Auto) Neut % (Auto) Lymph % (Auto) [place] % (Auto) Eos % (Auto) Baso % (Auto) Absolute Neuts (auto) Absolute Lymphs (auto) Total Counted Macrocytosis PT INR APTT Specimen Type CLEOPATRA BAILEY Sample Site OTHER L Radial pH 7.48 H 7.55 H Bicarbonate Actual 26.8 H 26.5 H POC Total CO2 28 27 Base Excess 3 H 4 H O2 Saturation 94 L 97 O2 % 100 60 ABG pCO2 35.8 30.6 L ABG pO2 66 L 74 L Rod Test NA Respiration Rate 12 14 O2 Delivery Device Vent Vent Vent Mode A-C A-C Tidal Volume 640 450 POC PEEP 10 8 Blood Gas Notified Whom TANNER WOODALL RN Blood Gas Notified Time 6245 6460 Sodium Potassium Chloride Carbon Dioxide Anion Gap BUN Creatinine Estim Creat Clear Calc Est GFR (MDRD) Af Amer Est GFR (MDRD) Non-Af BUN/Creatinine Ratio Glucose Lactic Acid Calcium Magnesium Total Creatine Kinase 157 Triglycerides 66 05/14/18 05/14/18 05/14/18 03:50 03:50 03:52 WBC 11.6 H RBC 3.14 L Hgb 11.6 L Hct 35.6 L MCV 113.4 H MCH 36.9 H MCHC 32.6 RDW 14.6 RDW Differential 60.4 H Plt Count 399 MPV 11.1 Immature Gran % (Auto) 0.800 Neut % (Auto) 78.2 H Lymph % (Auto) 11.7 L [place] % (Auto) 8.9 Eos % (Auto) 0.3 Baso % (Auto) 0.1 Absolute Neuts (auto) 9.1 H Absolute Lymphs (auto) 1.36 Total Counted Not Reportable Macrocytosis PT INR APTT Specimen Type CLEOPATRA Sample Site L Radial pH 7.48 H Bicarbonate Actual 27.8 H POC Total CO2 29 Base Excess 4 H O2 Saturation 98 O2 % 60 ABG pCO2 37.2 ABG pO2 93 Rod Test NA Respiration Rate 12 O2 Delivery Device Vent Vent Mode A-C Tidal Volume 450 POC PEEP 8 Blood Gas Notified Whom RN Blood Gas Notified Time 350 Sodium 141 Potassium 3.5 Chloride 103 Carbon Dioxide 26.0 Anion Gap 12 BUN 12 Creatinine 1.29 Estim Creat Clear Calc 66.00 Est GFR (MDRD) Af Amer 73 Est GFR (MDRD) Non-Af 60 BUN/Creatinine Ratio 9.3 L Glucose 97 Lactic Acid Calcium 7.6 L Magnesium Total Creatine Kinase Triglycerides 05/14/18 04:10 WBC RBC Hgb Hct MCV MCH MCHC RDW RDW Differential Plt Count MPV Immature Gran % (Auto) Neut % (Auto) Lymph % (Auto) [place] % (Auto) Eos % (Auto) Baso % (Auto) Absolute Neuts (auto) Absolute Lymphs (auto) Total Counted Macrocytosis PT 21.8 H INR 1.9 APTT Specimen Type Sample Site pH Bicarbonate Actual POC Total CO2 Base Excess O2 Saturation O2 % ABG pCO2 ABG pO2 Rod Test Respiration Rate O2 Delivery Device Vent Mode Tidal Volume POC PEEP Blood Gas Notified Whom Blood Gas Notified Time Sodium Potassium Chloride Carbon Dioxide Anion Gap BUN Creatinine Estim Creat Clear Calc Est GFR (MDRD) Af Amer Est GFR (MDRD) Non-Af BUN/Creatinine Ratio Glucose Lactic Acid Calcium Magnesium Total Creatine Kinase Triglycerides Clinical Impression(s) from Imaging Studies Abdomen/Pelvis CT 05/03/18 07:41 IMPRESSION: Large bladder mass as described causing a marked degree of bladder dilatation. Air is seen within the urinary bladder. This may be related to Maldonado catheter manipulation. If not, a colovesical fistula should be ruled out. Electronically Signed: Johnny Neil MD at 9:02 EST , Service support , Chest X-Ray 05/03/18 09:37 IMPRESSION: Mild cardiomegaly. Electronically Signed: Johnny Neli MD at 10:05 EST , Service support , Abdomen/Pelvis CT 05/04/18 07:00 IMPRESSION: Evaluation was performed to evaluate for a colovesical fistula. Please note that a study prior to injection of rectal contrast was not performed. This somewhat limits evaluation. There is hyperdense material in the bladder at time of prior study May 03, 2018 which most likely represented a hematoma. On today's examination again noted is gas as well as hyperdense material within the bladder. There is intimate association with a segment of the sigmoid colon with the urinary bladder. There is a small focus of gas within the bladder at this region. Findings would be concerning for a colovesical fistula. Correlate with urinalysis. Interval placement of a Maldonado catheter. The previously noted bladder hyperdense masslike lesion has significantly decreased in size. Likely representing a large hematoma. Recommend follow-up to ensure resolution. Diverticulosis is present. There is some thickening of the sigmoid colon with some stranding concerning for diverticulitis. Infrarenal abdominal aortic aneurysm. Decreasing right hydronephrosis. Evidence of prior granulomatous disease. Bilateral nephrolithiasis. Electronically Signed: Dawood Morrison, at 7:57 EST Tel , Service support , Chest X-Ray 05/10/18 05:55 IMPRESSION: Atelectasis and/or infiltrates at the lung bases worse on the left side with blunting of left costophrenic angle. Electronically Signed: Johnny Neil MD at 9:43 EST , Service support , Chest X-Ray 05/12/18 16:45 IMPRESSION: 1. Decreased bibasilar atelectasis. No organizing infiltrates seen. 2. Gaseous distention of bowel in the upper abdomen, incompletely visualized. 3. Mild cardiomegaly. Electronically Signed: Tunde Cole MD at 17:03 EST , Service support , Abdomen/Pelvis CT 05/13/18 10:28 IMPRESSION: Small bilateral pleural effusions with bibasilar infiltrates and/or atelectasis. Small amount of perihepatic as well as perisplenic fluid as well as fluid in the pelvis. Small amount of fluid in the Col[place] gutters. Postoperative changes in the region of the umbilicus there Distention of the ascending colon and transverse colon and descending colon down to the region of the anastomosis at the rectosigmoid junction. A Maldonado catheter seen within the urinary bladder. Electronically Signed: Johnny Neil MD at 13:48 EST , Service support , Chest X-Ray 05/13/18 14:18 IMPRESSION: The tip of the right internal jugular venous catheter is in the proximal portion of the superior vena cava. There is no evidence of pneumothorax. Stable appearance of the lungs. Electronically Signed: Johnny Neil MD at 15:52 EST , Service support , Chest X-Ray 05/13/18 19:24 IMPRESSION: Interval placement endotracheal and enteric tubes as above. at 1954 Reported and signed by: Jasno Goins MD Electronically Signed: Jason Goins, at 19:54 EST Tel , Service support , Medical Necessity - Tobacco Use Smoking Status: Current every day smoker Tobacco Use: Cigarettes Assessment/Plan All Active Problems (Last Reviewed 05/04/18 @ 08:39 by Prasanth Pradhan MD) Gross hematuria (Acute) Overweight (Acute) MASOOD (obstructive sleep apnea) (Acute) Colovesical fistula (Acute) Large bowel anastomotic leak (Acute) Sepsis associated hypotension (Acute) RECOMMENDATIONS: 1. If the patient does well on his spontaneous breathing trial, we will proceed with extubation this morning. 2. Recheck BMP and magnesium levels. 3. Wean Levophed, as I suspect his hemodynamic instability was the consequence of sedation medication use. 4. Diet advancement per surgery recommendations. 5. Change aerosol treatments to PRN 6. Continue antibiotics as ordered. 7. PRN fentanyl for pain. 8. Wean supplemental oxygen as tolerated. IMPRESSIONS: 1. Septic shock with concern for intra-abdominal infectious process due to anastomotic leak The patient was transferred back to the medical intensive care unit after he became septic once again in the PCU. The patient spiked a high-grade fever and developed tachycardia and worsening hypoxemia. He has received a small amount of supplemental IV fluids. Postoperatively, the patient did require vasopressor support to maintain hemodynamic stability. However, he has since been weaned from Levophed and is maintaining hemodynamic stability. Antibiotics will be continued accordingly. 2. Acute respiratory failure The patient was not extubated postoperatively. He returned to the ICU on invasive mechanical ventilation. He is currently on a spontaneous breathing trial. If he does well, we will plan to proceed with extubation. 3. Coronary artery disease/chronic systolic heart failure Continue current medical therapy. As noted above, recommend judicious use of supplemental IV fluids, given the patient's underlying cardiomyopathy. 4. Paroxysmal atrial fibrillation Continue systemic anticoagulation as ordered. 5. History of obstructive sleep apnea Recommend use of nocturnal noninvasive positive pressure ventilation as tolerated, once the patient is extubated from invasive mechanical ventilation. TIME: 38 minutes of critical care time, independent of procedures, was spent addressing the patient's septic shock, anastomotic leak, chronic systolic heart failure, acute respiratory failure, review of all data and collaboration with the care team. ([id number]) Code Visit [id number]: [id number] Critical care first hour
--- NOTE | 2018-05-14 07:04 | PN_ITS ---
Subjective: The patient was seen and examined at the bedside this morning. Events from the last 24 hours have been reviewed. The patient is currently afebrile, but is requiring a small amount of Levophed to maintain hemodynamic stability. The patient did undergo exploratory laparotomy yesterday due to an anastomotic leak and subsequent sepsis. The patient underwent creation of an end colostomy. He was transferred back to the ICU still intubated after the procedure. Overnight, the patient received a small amount of IV fluid hydration due to persistent tachycardia. He also had to be started on fentanyl due to complaints of pain. This morning, despite being on sedation, the patient is alert and interacting appropriately. His sedation regimen was subsequently placed on hold and he is currently on a spontaneous breathing trial. Objective: The patient's most recent lab work, culture data and imaging studies have all b een personally reviewed. Blood cultures are pending. General: Alert, Cooperative, - - Currently tolerating spontaneous mode of mechanical ventilation. HEENT: Atraumatic, PERRLA, Normocephalic Oral: No Gingival or Mucosal Lesions/ Ulcerations, - - Endotracheal and OG tubes remain in place Neck: Supple, No Nodes, Trachea Midline, - - Triple-lumen catheter currently in place Lungs: No rhonchi, No wheeze, No rales, Diminished Cardiovascular: Normal S1, Normal S2, No murmurs, Irregular Rate, Tachycardic Abdomen: Soft, Hypoactive Bowel Sounds, Distended, - - + Ostomy (intact), RICARDO drain in place Extremities: No clubbing, No cyanosis, Edema Skin: No breakdown Musculoskeletal: No Muscle Wasting Lymphatic: No Cervical, Supraclavicular, or Inguinal Adenopathy Neurological: Neuro grossly intact Vital Signs Temp Pulse Resp BP Pulse Ox 37.2 C 113 H 13 94/77 93 05/14/18 04:00 05/14/18 06:45 05/14/18 06:45 05/14/18 06:45 05/14/18 06:45 Oxygen Flow Rate (L/min) 6 Oxygen Delivery Method Bi-pap Weight: 235 lb 0.204 oz Body Mass Index (BMI) 29.9 Orthostatic Vital Signs Start: 05/13/18 10:09 Freq: q24h Status: Active Protocol: Activity Type Activity Date Activity User E-Sign Co-Sign Detail Recorded Client Recorded Date Recorded By Document 05/13/18 09:25 MLB [id number] 05/13/18 10:10 MLB 05/13/18 09:25 Orthostatic Vitals Standing -Blood Pressure (90/60-120/80) 73/56 L -Extremity Use Left Arm -Pulse Rate (60-100) 110 H Sitting -Blood Pressure (90/60-120/80) 82/64 L -Extremity Use Left Arm -Pulse Rate (60-100) 100 Lying -Blood Pressure (90/60-120/80) 110/68 -Extremity Use Left Arm -Pulse Rate (60-100) 103 H Intake and Output for Last 24 Hours 05/12/18 05/13/18 05/14/18 23:59 23:59 23:59 Intake Total 2184.6 / 2184.6 1440.8 / 1440.8 1592.3 / 1592.3 Output Total 1665 / 1665 1575 / 1575 210 / 210 Balance 519.6 / 519.6 -134.2 / -134.2 1382.3 / 1382.3 Labs (Last 48 Hours) 05/12/18 05/12/18 05/12/18 06:05 06:05 06:05 WBC 9.9 RBC 3.00 L Hgb 11.2 L Hct 34.8 L MCV 116.0 H MCH 37.3 H MCHC 32.2 RDW 14.2 RDW Differential 60.2 H Plt Count 293 MPV 11.0 Immature Gran % (Auto) 0.500 Neut % (Auto) 67.5 Lymph % (Auto) 13.4 L [place] % (Auto) 15.8 H Eos % (Auto) 2.5 Baso % (Auto) 0.3 Absolute Neuts (auto) 6.7 Absolute Lymphs (auto) 1.32 Total Counted Not Reportable Macrocytosis 1+ PT 17.6 H INR 1.4 APTT Specimen Type Sample Site pH Bicarbonate Actual POC Total CO2 Base Excess O2 Saturation O2 % ABG pCO2 ABG pO2 Rod Test Respiration Rate O2 Delivery Device Vent Mode Tidal Volume POC PEEP Blood Gas Notified Whom Blood Gas Notified Time Sodium 137 Potassium 3.0 L Chloride 95 L Carbon Dioxide 33.0 H Anion Gap 9 BUN 5 L Creatinine 0.62 L Estim Creat Clear Calc 137.33 Est GFR (MDRD) Af Amer 169 Est GFR (MDRD) Non-Af 140 BUN/Creatinine Ratio 8.1 L Glucose 92 Lactic Acid Calcium 8.0 L Magnesium Total Creatine Kinase Triglycerides 05/12/18 05/13/18 05/13/18 06:05 05:15 05:15 WBC 12.2 H RBC 2.81 L Hgb 10.6 L Hct 32.9 L MCV 117.1 H MCH 37.7 H MCHC 32.2 RDW 13.9 RDW Differential 57.0 H Plt Count 291 MPV 11.2 Immature Gran % (Auto) 1.200 H Neut % (Auto) 75.5 H Lymph % (Auto) 9.5 L [place] % (Auto) 12.2 H Eos % (Auto) 1.4 Baso % (Auto) 0.2 Absolute Neuts (auto) 9.2 H Absolute Lymphs (auto) 1.16 Total Counted Not Reportable Macrocytosis PT 18.5 H INR 1.6 APTT Specimen Type Sample Site pH Bicarbonate Actual POC Total CO2 Base Excess O2 Saturation O2 % ABG pCO2 ABG pO2 Rod Test Respiration Rate O2 Delivery Device Vent Mode Tidal Volume POC PEEP Blood Gas Notified Whom Blood Gas Notified Time Sodium Potassium Chloride Carbon Dioxide Anion Gap BUN Creatinine Estim Creat Clear Calc Est GFR (MDRD) Af Amer Est GFR (MDRD) Non-Af BUN/Creatinine Ratio Glucose Lactic Acid Calcium Magnesium 1.9 Total Creatine Kinase Triglycerides 05/13/18 05/13/18 05/13/18 05:15 11:26 15:56 WBC RBC Hgb Hct MCV MCH MCHC RDW RDW Differential Plt Count MPV Immature Gran % (Auto) Neut % (Auto) Lymph % (Auto) [place] % (Auto) Eos % (Auto) Baso % (Auto) Absolute Neuts (auto) Absolute Lymphs (auto) Total Counted Macrocytosis PT INR APTT Specimen Type Sample Site pH Bicarbonate Actual POC Total CO2 Base Excess O2 Saturation O2 % ABG pCO2 ABG pO2 Rod Test Respiration Rate O2 Delivery Device Vent Mode Tidal Volume POC PEEP Blood Gas Notified Whom Blood Gas Notified Time Sodium 138 Potassium 2.9 L Chloride 97 L Carbon Dioxide 32.0 Anion Gap 9 BUN 6 L Creatinine 0.67 L Estim Creat Clear Calc 127.08 Est GFR (MDRD) Af Amer 154 Est GFR (MDRD) Non-Af 128 BUN/Creatinine Ratio 8.9 L Glucose 140 H Lactic Acid 2.7 H 1.1 Calcium 7.8 L Magnesium Total Creatine Kinase Triglycerides 05/13/18 05/13/18 05/13/18 17:54 17:54 17:54 WBC 7.7 RBC 2.92 L Hgb 10.9 L Hct 33.2 L MCV 113.7 H MCH 37.3 H MCHC 32.8 RDW 14.2 RDW Differential 59.1 H Plt Count 348 MPV 10.8 Immature Gran % (Auto) Neut % (Auto) Lymph % (Auto) [place] % (Auto) Eos % (Auto) Baso % (Auto) Absolute Neuts (auto) Absolute Lymphs (auto) Total Counted Macrocytosis PT 19.8 H INR 1.7 APTT 39.6 H Specimen Type Sample Site pH Bicarbonate Actual POC Total CO2 Base Excess O2 Saturation O2 % ABG pCO2 ABG pO2 Rod Test Respiration Rate O2 Delivery Device Vent Mode Tidal Volume POC PEEP Blood Gas Notified Whom Blood Gas Notified Time Sodium 135 L Potassium 3.9 Chloride 100 Carbon Dioxide 28.0 Anion Gap 7 BUN 8 Creatinine 0.76 Estim Creat Clear Calc 112.03 Est GFR (MDRD) Af Amer 133 Est GFR (MDRD) Non-Af 110 BUN/Creatinine Ratio 10.5 Glucose 107 H Lactic Acid Calcium 7.7 L Magnesium Total Creatine Kinase Triglycerides 05/13/18 05/13/18 05/13/18 18:13 21:00 23:25 WBC RBC Hgb Hct MCV MCH MCHC RDW RDW Differential Plt Count MPV Immature Gran % (Auto) Neut % (Auto) Lymph % (Auto) [place] % (Auto) Eos % (Auto) Baso % (Auto) Absolute Neuts (auto) Absolute Lymphs (auto) Total Counted Macrocytosis PT INR APTT Specimen Type [facility] Sample Site OTHER L Radial pH 7.48 H 7.55 H Bicarbonate Actual 26.8 H 26.5 H POC Total CO2 28 27 Base Excess 3 H 4 H O2 Saturation 94 L 97 O2 % 100 60 ABG pCO2 35.8 30.6 L ABG pO2 66 L 74 L Rod Test NA Respiration Rate 12 14 O2 Delivery Device Vent Vent Vent Mode A-C A-C Tidal Volume 640 450 POC PEEP 10 8 Blood Gas Notified Whom TANNER WOODALL RN Blood Gas Notified Time 9038 2330 Sodium Potassium Chloride Carbon Dioxide Anion Gap BUN Creatinine Estim Creat Clear Calc Est GFR (MDRD) Af Amer Est GFR (MDRD) Non-Af BUN/Creatinine Ratio Glucose Lactic Acid Calcium Magnesium Total Creatine Kinase 157 Triglycerides 66 05/14/18 05/14/18 05/14/18 03:50 03:50 03:52 WBC 11.6 H RBC 3.14 L Hgb 11.6 L Hct 35.6 L MCV 113.4 H MCH 36.9 H MCHC 32.6 RDW 14.6 RDW Differential 60.4 H Plt Count 399 MPV 11.1 Immature Gran % (Auto) 0.800 Neut % (Auto) 78.2 H Lymph % (Auto) 11.7 L [place] % (Auto) 8.9 Eos % (Auto) 0.3 Baso % (Auto) 0.1 Absolute Neuts (auto) 9.1 H Absolute Lymphs (auto) 1.36 Total Counted Not Reportable Macrocytosis PT INR APTT Specimen Type [facility]RA Sample Site L Radial pH 7.48 H Bicarbonate Actual 27.8 H POC Total CO2 29 Base Excess 4 H O2 Saturation 98 O2 % 60 ABG pCO2 37.2 ABG pO2 93 Rod Test NA Respiration Rate 12 O2 Delivery Device Vent Vent Mode A-C Tidal Volume 450 POC PEEP 8 Blood Gas Notified Whom RN Blood Gas Notified Time 350 Sodium 141 Potassium 3.5 Chloride 103 Carbon Dioxide 26.0 Anion Gap 12 BUN 12 Creatinine 1.29 Estim Creat Clear Calc 66.00 Est GFR (MDRD) Af Amer 73 Est GFR (MDRD) Non-Af 60 BUN/Creatinine Ratio 9.3 L Glucose 97 Lactic Acid Calcium 7.6 L Magnesium Total Creatine Kinase Triglycerides 05/14/18 04:10 WBC RBC Hgb Hct MCV MCH MCHC RDW RDW Differential Plt Count MPV Immature Gran % (Auto) Neut % (Auto) Lymph % (Auto) [place] % (Auto) Eos % (Auto) Baso % (Auto) Absolute Neuts (auto) Absolute Lymphs (auto) Total Counted Macrocytosis PT 21.8 H INR 1.9 APTT Specimen Type Sample Site pH Bicarbonate Actual POC Total CO2 Base Excess O2 Saturation O2 % ABG pCO2 ABG pO2 Rod Test Respiration Rate O2 Delivery Device Vent Mode Tidal Volume POC PEEP Blood Gas Notified Whom Blood Gas Notified Time Sodium Potassium Chloride Carbon Dioxide Anion Gap BUN Creatinine Estim Creat Clear Calc Est GFR (MDRD) Af Amer Est GFR (MDRD) Non-Af BUN/Creatinine Ratio Glucose Lactic Acid Calcium Magnesium Total Creatine Kinase Triglycerides Clinical Impression(s) from Imaging Studies Abdomen/Pelvis CT 05/03/18 07:41 IMPRESSION: Large bladder mass as described causing a marked degree of bladder dilatation. Air is seen within the urinary bladder. This may be related to Maldonado catheter manipulation. If not, a colovesical fistula should be ruled out. Electronically Signed: Johnny Neil MD at 9:02 EST , Service support , Chest X-Ray 05/03/18 09:37 IMPRESSION: Mild cardiomegaly. Electronically Signed: Johnny Neil MD at 10:05 EST , Service support , Abdomen/Pelvis CT 05/04/18 07:00 IMPRESSION: Evaluation was performed to evaluate for a colovesical fistula. Please note that a study prior to injection of rectal contrast was not performed. This somewhat limits evaluation. There is hyperdense material in the bladder at time of prior study May 03, 2018 which most likely represented a hematoma. On today's examination again noted is gas as well as hyperdense material within the bladder. There is intimate association with a segment of the sigmoid colon with the urinary bladder. There is a small focus of gas within the bladder at this region. Findings would be concerning for a colovesical fistula. Correlate with urinalysis. Interval placement of a Maldonado catheter. The previously noted bladder hyperdense masslike lesion has significantly decreased in size. Likely representing a large hematoma. Recommend follow-up to ensure resolution. Diverticulosis is present. There is some thickening of the sigmoid colon with some stranding concerning for diverticulitis. Infrarenal abdominal aortic aneurysm. Decreasing right hydronephrosis. Evidence of prior granulomatous disease. Bilateral nephrolithiasis. Electronically Signed: Dawood Morrison, at 7:57 EST Tel , Service support , Chest X-Ray 05/10/18 05:55 IMPRESSION: Atelectasis and/or infiltrates at the lung bases worse on the left side with blunting of left costophrenic angle. Electronically Signed: Johnny Neil MD at 9:43 EST , Service support , Chest X-Ray 05/12/18 16:45 IMPRESSION: 1. Decreased bibasilar atelectasis. No organizing infiltrates seen. 2. Gaseous distention of bowel in the upper abdomen, incompletely visualized. 3. Mild cardiomegaly. Electronically Signed: Tunde Cole MD at 17:03 EST , Service support , Abdomen/Pelvis CT 05/13/18 10:28 IMPRESSION: Small bilateral pleural effusions with bibasilar infiltrates and/or atelectasis. Small amount of perihepatic as well as perisplenic fluid as well as fluid in the pelvis. Small amount of fluid in the [place] gutters. Postoperative changes in the region of the umbilicus there Distention of the ascending colon and transverse colon and descending colon down to the region of the anastomosis at the rectosigmoid junction. A Maldonado catheter seen within the urinary bladder. Electronically Signed: Johnny Neil MD at 13:48 EST , Service support , Chest X-Ray 05/13/18 14:18 IMPRESSION: The tip of the right internal jugular venous catheter is in the proximal portion of the superior vena cava. There is no evidence of pneumothorax. Stable appearance of the lungs. Electronically Signed: Johnny Neil MD at 15:52 EST , Service support , Chest X-Ray 05/13/18 19:24 IMPRESSION: Interval placement endotracheal and enteric tubes as above. at 1954 Reported and signed by: Jason Goins MD Electronically Signed: Jason Goins, at 19:54 EST Tel , Service support , Medical Necessity - Tobacco Use Smoking Status: Current every day smoker Tobacco Use: Cigarettes Assessment/Plan All Active Problems (Last Reviewed 05/04/18 @ 08:39 by Prasanth Pradhan MD) Gross hematuria (Acute) Overweight (Acute) MASOOD (obstructive sleep apnea) (Acute) Colovesical fistula (Acute) Large bowel anastomotic leak (Acute) Sepsis associated hypotension (Acute) RECOMMENDATIONS: 1. If the patient does well on his spontaneous breathing trial, we will proceed with extubation this morning. 2. Recheck BMP and magnesium levels. 3. Wean Levophed, as I suspect his hemodynamic instability was the consequence of sedation medication use. 4. Diet advancement per surgery recommendations. 5. Change aerosol treatments to PRN 6. Continue antibiotics as ordered. 7. PRN fentanyl for pain. 8. Wean supplemental oxygen as tolerated. IMPRESSIONS: 1. Septic shock with concern for intra-abdominal infectious process due to anastomotic leak The patient was transferred back to the medical intensive care unit after he became septic once again in the PCU. The patient spiked a high-grade fever and developed tachycardia and worsening hypoxemia. He has received a small amount of supplemental IV fluids. Postoperatively, the patient did require vasopressor support to maintain hemodynamic stability. However, he has since been weaned from Levophed and is maintaining hemodynamic stability. Antibiotics will be continued accordingly. 2. Acute respiratory failure The patient was not extubated postoperatively. He returned to the ICU on invasive mechanical ventilation. He is currently on a spontaneous breathing trial. If he does well, we will plan to proceed with extubation. 3. Coronary artery disease/chronic systolic heart failure Continue current medical therapy. As noted above, recommend judicious use of supplemental IV fluids, given the patient's underlying cardiomyopathy. 4. Paroxysmal atrial fibrillation Continue systemic anticoagulation as ordered. 5. History of obstructive sleep apnea Recommend use of nocturnal noninvasive positive pressure ventilation as tolerated, once the patient is extubated from invasive mechanical ventilation. TIME: 38 minutes of critical care time, independent of procedures, was spent addressing the patient's septic shock, anastomotic leak, chronic systolic heart failure, acute respiratory failure, review of all data and collaboration with the care team. ([id number]) Code Visit 9xxxx: [id number] Critical care first hour
--- NOTE | 2018-05-14 07:11 | PCM.PN.SRG ---
Patient Problems: Active and Suspected Problems (Last Reviewed 05/04/18 @ 08:39 by Prasanth Pradhan MD) Gross hematuria (Acute) Overweight (Acute) MASOOD (obstructive sleep apnea) (Acute) non-compliant with CPAP Peripheral arterial disease (Suspected) Colovesical fistula (Acute) Large bowel anastomotic leak (Acute) Sepsis associated hypotension (Acute) Subjective: Patient evaluated resting comfortably in bed. He was intubated upon evaluation. Patient notes pain/discomfort. He does have a Skyler's pouch, suarez and RICARDO drain in place. He was placed on Levophed over night. - Physical Exam General: Alert, Cooperative Lungs: Clear to auscultation, Normal air movement Cardiovascular: Tachycardic Abdomen: Hypoactive Bowel Sounds, Distended, - - Colostomy with moderate amount of edema. Retention sutures intact with gauze packing between. ABD pad over top. RICARDO drain intact with SA drainage noted. Suarez intact with bloody urine noted. Vital Signs Temp Pulse Resp BP Pulse Ox 99.0 F 113 H 18 100/76 94 05/14/18 04:00 05/14/18 07:00 05/14/18 07:00 05/14/18 07:00 05/14/18 07:00 Oxygen Flow Rate (L/min) 6 Oxygen Delivery Method Mechanical Ventilator Weight: 235 lb 0.204 oz Body Mass Index (BMI) 29.9 Orthostatic Vital Signs Start: 05/13/18 10:09 Freq: q24h Status: Active Protocol: Activity Type Activity Date Activity User E-Sign Co-Sign Detail Recorded Client Recorded Date Recorded By Document 05/13/18 09:25 MLB [id number] 05/13/18 10:10 MLB 05/13/18 09:25 Orthostatic Vitals Standing -Blood Pressure (90/60-120/80) 73/56 L -Extremity Use Left Arm -Pulse Rate (60-100) 110 H Sitting -Blood Pressure (90/60-120/80) 82/64 L -Extremity Use Left Arm -Pulse Rate (60-100) 100 Lying -Blood Pressure (90/60-120/80) 110/68 -Extremity Use Left Arm -Pulse Rate (60-100) 103 H Intake and Output for Last 24 Hours 05/12/18 05/13/18 05/14/18 23:59 23:59 23:59 Intake Total 2184.6 / 2184.6 1440.8 / 1440.8 1592.3 / 1592.3 Output Total 1665 / 1665 1575 / 1575 210 / 210 Balance 519.6 / 519.6 -134.2 / -134.2 1382.3 / 1382.3 Laboratory Tests Past 24 Hrs 05/13/18 05/13/18 05/13/18 11:26 15:56 17:54 WBC 7.7 RBC 2.92 L Hgb 10.9 L Hct 33.2 L MCV 113.7 H MCH 37.3 H MCHC 32.8 RDW 14.2 RDW Differential 59.1 H Plt Count 348 MPV 10.8 Immature Gran % (Auto) Neut % (Auto) Lymph % (Auto) [place] % (Auto) Eos % (Auto) Baso % (Auto) Absolute Neuts (auto) Absolute Lymphs (auto) Total Counted PT INR APTT Specimen Type Sample Site pH Bicarbonate Actual POC Total CO2 Base Excess O2 Saturation O2 % ABG pCO2 ABG pO2 Rod Test Respiration Rate O2 Delivery Device Vent Mode Tidal Volume POC PEEP Blood Gas Notified Whom Blood Gas Notified Time Sodium Potassium Chloride Carbon Dioxide Anion Gap BUN Creatinine Estim Creat Clear Calc Est GFR (MDRD) Af Amer Est GFR (MDRD) Non-Af BUN/Creatinine Ratio Glucose Lactic Acid 2.7 H 1.1 Calcium Total Creatine Kinase Triglycerides 05/13/18 05/13/18 05/13/18 17:54 17:54 18:13 WBC RBC Hgb Hct MCV MCH MCHC RDW RDW Differential Plt Count MPV Immature Gran % (Auto) Neut % (Auto) Lymph % (Auto) [place] % (Auto) Eos % (Auto) Baso % (Auto) Absolute Neuts (auto) Absolute Lymphs (auto) Total Counted PT 19.8 H INR 1.7 APTT 39.6 H Specimen Type [facility] Sample Site OTHER pH 7.48 H Bicarbonate Actual 26.8 H POC Total CO2 28 Base Excess 3 H O2 Saturation 94 L O2 % 100 ABG pCO2 35.8 ABG pO2 66 L Rod Test Respiration Rate 12 O2 Delivery Device Vent Vent Mode A-C Tidal Volume 640 POC PEEP 10 Blood Gas Notified Whom [facility] Blood Gas Notified Time 1813 Sodium 135 L Potassium 3.9 Chloride 100 Carbon Dioxide 28.0 Anion Gap 7 BUN 8 Creatinine 0.76 Estim Creat Clear Calc 112.03 Est GFR (MDRD) Af Amer 133 Est GFR (MDRD) Non-Af 110 BUN/Creatinine Ratio 10.5 Glucose 107 H Lactic Acid Calcium 7.7 L Total Creatine Kinase Triglycerides 05/13/18 05/13/18 05/14/18 21:00 23:25 03:50 WBC 11.6 H RBC 3.14 L Hgb 11.6 L Hct 35.6 L MCV 113.4 H MCH 36.9 H MCHC 32.6 RDW 14.6 RDW Differential 60.4 H Plt Count 399 MPV 11.1 Immature Gran % (Auto) 0.800 Neut % (Auto) 78.2 H Lymph % (Auto) 11.7 L [place] % (Auto) 8.9 Eos % (Auto) 0.3 Baso % (Auto) 0.1 Absolute Neuts (auto) 9.1 H Absolute Lymphs (auto) 1.36 Total Counted Not Reportable PT INR APTT Specimen Type [facility] Sample Site L Radial pH 7.55 H Bicarbonate Actual 26.5 H POC Total CO2 27 Base Excess 4 H O2 Saturation 97 O2 % 60 ABG pCO2 30.6 L ABG pO2 74 L Rod Test NA Respiration Rate 14 O2 Delivery Device Vent Vent Mode A-C Tidal Volume 450 POC PEEP 8 Blood Gas Notified Whom RN Blood Gas Notified Time 2330 Sodium Potassium Chloride Carbon Dioxide Anion Gap BUN Creatinine Estim Creat Clear Calc Est GFR (MDRD) Af Amer Est GFR (MDRD) Non-Af BUN/Creatinine Ratio Glucose Lactic Acid Calcium Total Creatine Kinase 157 Triglycerides 66 05/14/18 05/14/18 05/14/18 03:50 03:52 04:10 WBC RBC Hgb Hct MCV MCH MCHC RDW RDW Differential Plt Count MPV Immature Gran % (Auto) Neut % (Auto) Lymph % (Auto) [place] % (Auto) Eos % (Auto) Baso % (Auto) Absolute Neuts (auto) Absolute Lymphs (auto) Total Counted PT 21.8 H INR 1.9 APTT Specimen Type [facility] Sample Site L Radial pH 7.48 H Bicarbonate Actual 27.8 H POC Total CO2 29 Base Excess 4 H O2 Saturation 98 O2 % 60 ABG pCO2 37.2 ABG pO2 93 Rod Test NA Respiration Rate 12 O2 Delivery Device Vent Vent Mode A-C Tidal Volume 450 POC PEEP 8 Blood Gas Notified Whom RN Blood Gas Notified Time 350 Sodium 141 Potassium 3.5 Chloride 103 Carbon Dioxide 26.0 Anion Gap 12 BUN 12 Creatinine 1.29 Estim Creat Clear Calc 66.00 Est GFR (MDRD) Af Amer 73 Est GFR (MDRD) Non-Af 60 BUN/Creatinine Ratio 9.3 L Glucose 97 Lactic Acid Calcium 7.6 L Total Creatine Kinase Triglycerides Medical Necessity - Tobacco Use Smoking Status: Current every day smoker Tobacco Use: Cigarettes Assessment/Plan All Active Problems (Last Reviewed 05/04/18 @ 08:39 by Prasanth Pradhan MD) Gross hematuria (Acute) Overweight (Acute) MASOOD (obstructive sleep apnea) (Acute) Colovesical fistula (Acute) Large bowel anastomotic leak (Acute) Sepsis associated hypotension (Acute) I am following this patient with Dr. Pradhan S/p sigmoid colectomy and cystoscopy for colovesical fistula in conjunction with Eddy. Anastomotic leak. S/p urgent exploratory laparotomy with end colostomy creation. Positive for LLE DVT on Lovenox and Coumadin Labs reviewed Encourage ambulation Consult Manuela Patient to be extubated this morning He will be tried on clear liquids Discussed patient with Dr. Pradhan We will continue to closely monitor this patient Code Visit Inpatient E&M: 31418 Subs Hosp L1 - POST-OP/NO CHARGE
[2018-05-14] MEDS: fentaNYL 100 MCG/2 ML Ampul 25 MCG IV ×2 (08:53→20:50)
[2018-05-14] MEDS: 0.9% NaCl Peripheral Flush Adult/Peds IV ×4 (08:53→20:50)
--- NOTE | 2018-05-14 09:50 | PCM.PN.HOSP ---
Patient Problems: Active and Suspected Problems (Last Reviewed 05/04/18 @ 08:39 by Prasanth Pradhan MD) Gross hematuria (Acute) Overweight (Acute) MASOOD (obstructive sleep apnea) (Acute) non-compliant with CPAP Peripheral arterial disease (Suspected) Colovesical fistula (Acute) Large bowel anastomotic leak (Acute) Sepsis associated hypotension (Acute) Subjective: Patient seen and examined. He complained of feeling thirsty. He denied any fever or chills, any palpitations or dizziness, any abdominal pain, any diarrhea vomiting. He had urgent exploratory laparotomy with end colostomy creation yesterday on account of anastomotic leak. He was transferred to the ICU on account of sepsis likely due to anastomotic leak and abdominal abscess formation. He is currently on IV meropenem. 12 point review of systems otherwise negative. Labs and vitals reviewed. Vitals/I&O's: Vital Signs Temp Pulse Resp BP Pulse Ox 98.3 F 111 H 27 H 103/51 L 93 05/14/18 08:00 05/14/18 09:00 05/14/18 09:00 05/14/18 09:00 05/14/18 09:00 Oxygen Flow Rate (L/min) 6 Oxygen Delivery Method Venturi Mask Weight: 235 lb 0.204 oz Body Mass Index (BMI) 29.9 Orthostatic Vital Signs Start: 05/13/18 10:09 Freq: q24h Status: Active Protocol: Activity Type Activity Date Activity User E-Sign Co-Sign Detail Recorded Client Recorded Date Recorded By Document 05/13/18 09:25 MLB [id number] 05/13/18 10:10 MLB 05/13/18 09:25 Orthostatic Vitals Standing -Blood Pressure (90/60-120/80) 73/56 L -Extremity Use Left Arm -Pulse Rate (60-100) 110 H Sitting -Blood Pressure (90/60-120/80) 82/64 L -Extremity Use Left Arm -Pulse Rate (60-100) 100 Lying -Blood Pressure (90/60-120/80) 110/68 -Extremity Use Left Arm -Pulse Rate (60-100) 103 H Intake and Output for Last 24 Hours 05/12/18 05/13/18 05/14/18 23:59 23:59 23:59 Intake Total 2184.6 / 2184.6 1440.8 / 1440.8 1592.3 / 1592.3 Output Total 1665 / 1665 1575 / 1575 210 / 210 Balance 519.6 / 519.6 -134.2 / -134.2 1382.3 / 1382.3 General: Alert, Oriented x3, Cooperative, HEENT: Atraumatic, PERRLA, EOMI, Normocephalic Oral: dry mucosa Neck: Supple, No JVD, Negative Carotid Bruits, Negative Hepatojugular Reflux, No Nodes Lungs: - - decreased breath sounds bibasally; no wheezes or crackles. tachypneic. on 13L of oxygen Cardiovascular: Regular rate, Regular Rhythm, Normal S1, Normal S2, No murmurs Abdomen: Bowel Sounds Present, Soft, - - has diverting colostomy in place; minimal tenderness, abdomen still distended, but not as severe as yesterday. Extremities: No clubbing, No cyanosis, No edema, Capillary Refill Less than 3 Seconds Skin: No rashes, No breakdown Musculoskeletal: No Tenderness to Palpation of Joints or Extremities Lymphatic: No Cervical, Supraclavicular, or Inguinal Adenopathy Neurological: Cranial nerves II-XII grossly intact, Neuro grossly intact, Motor Exam 5/5 strength throughout Psych/Mental Status: Normal Affect, Anxious, Alert and oriented to time, place, person, mood and affect Laboratory Results 05/13/18 11:26: Lactic Acid 2.7 H 05/13/18 15:56: Lactic Acid 1.1 05/13/18 17:54: WBC 7.7, RBC 2.92 L, Hgb 10.9 L, Hct 33.2 L, MCV 113.7 H, MCH 37.3 H, MCHC 32.8, RDW 14.2, RDW Differential 59.1 H, Plt Count 348, MPV 10.8 05/13/18 17:54: PT 19.8 H, INR 1.7, APTT 39.6 H 05/13/18 17:54: Sodium 135 L, Potassium 3.9, Chloride 100, Carbon Dioxide 28.0, Anion Gap 7, BUN 8, Creatinine 0.76, Estim Creat Clear Calc 112.03, Est GFR (MDRD) Af Amer 133, Est GFR (MDRD) Non-Af 110, BUN/Creatinine Ratio 10.5, Glucose 107 H, Calcium 7.7 L 05/13/18 18:13: Specimen Type CLEOPATRA, Sample Site OTHER, pH 7.48 H, Bicarbonate Actual 26.8 H, POC Total CO2 28, Base Excess 3 H, O2 Saturation 94 L, O2 % 100, ABG pCO2 35.8, ABG pO2 66 L, Respiration Rate 12, O2 Delivery Device Vent, Vent Mode A-C, Tidal Volume 640, POC PEEP 10, Blood Gas Notified Whom TANNER WOODALL, Blood Gas Notified Time 18105/13/18 21:00: Total Creatine Kinase 157, Triglycerides 66 05/13/18 23:25: Specimen Type CLEOPATRA, Sample Site L Radial, pH 7.55 H, Bicarbonate Actual 26.5 H, POC Total CO2 27, Base Excess 4 H, O2 Saturation 97, O2 % 60, ABG pCO2 30.6 L, ABG pO2 74 L, Rod Test NA, Respiration Rate 14, O2 Delivery Device Vent, Vent Mode A-C, Tidal Volume 450, POC PEEP 8, Blood Gas Notified Whom LUIS, Blood Gas Notified Time 23305/14/18 03:50: WBC 11.6 H, RBC 3.14 L, Hgb 11.6 L, Hct 35.6 L, MCV 113.4 H, MCH 36.9 H, MCHC 32.6, RDW 14.6, RDW Differential 60.4 H, Plt Count 399, MPV 11.1, Immature Gran % (Auto) 0.800, Neut % (Auto) 78.2 H, Lymph % (Auto) 11.7 L, [place] % (Auto) 8.9, Eos % (Auto) 0.3, Baso % (Auto) 0.1, Absolute Neuts (auto) 9.1 H, Absolute Lymphs (auto) 1.36, Total Counted Not Reportable 05/14/18 03:50: Sodium 141, Potassium 3.5, Chloride 103, Carbon Dioxide 26.0, Anion Gap 12, BUN 12, Creatinine 1.29, Estim Creat Clear Calc 66.00, Est GFR (MDRD) Af Amer 73, Est GFR (MDRD) Non-Af 60, BUN/Creatinine Ratio 9.3 L, Glucose 97, Calcium 7.6 L 05/14/18 03:52: Specimen Type CLEOPATRA, Sample Site L Radial, pH 7.48 H, Bicarbonate Actual 27.8 H, POC Total CO2 29, Base Excess 4 H, O2 Saturation 98, O2 % 60, ABG pCO2 37.2, ABG pO2 93, Rod Test NA, Respiration Rate 12, O2 Delivery Device Vent, Vent Mode A-C, Tidal Volume 450, POC PEEP 8, Blood Gas Notified Whom RN, Blood Gas Notified Time 350 05/14/18 04:10: PT 21.8 H, INR 1.9 Diagnostic Data Abdomen/Pelvis CT 05/13/18 10:28 IMPRESSION: Small bilateral pleural effusions with bibasilar infiltrates and/or atelectasis. Small amount of perihepatic as well as perisplenic fluid as well as fluid in the pelvis. Small amount of fluid in the Colic gutters. Postoperative changes in the region of the umbilicus there Distention of the ascending colon and transverse colon and descending colon down to the region of the anastomosis at the rectosigmoid junction. A Maldonado catheter seen within the urinary bladder. Electronically Signed: Johnny Neil MD at 13:48 EST , Service support , Chest X-Ray 05/13/18 19:24 IMPRESSION: Interval placement endotracheal and enteric tubes as above. at 1955 Reported and signed by: Jason Goins MD Electronically Signed: Jason Goins, at 19:54 EST Tel , Service support , Current Medications Albuterol/Ipratropium (Duoneb) 3 ml INHALATION Q4H.RT [facility] Last Admin: 05/14/18 03:28 Dose: Not Given Atorvastatin Calcium (Lipitor) 40 mg PO HS [facility] Last Admin: 05/13/18 22:21 Dose: Not Given Bisacodyl (Dulcolax) 5 mg PO DAILY PRN PRN PRN Reason: Constipation Chlorhexidine Gluconate () 1 each TOPICAL DAILY [facility] Docusate Sodium (Colace) 100 mg PO BID [facility] Last Admin: 05/13/18 22:21 Dose: Not Given Enoxaparin Sodium (Lovenox) 100 mg SC Q12 [facility] Last Admin: 05/13/18 22:49 Dose: 100 mg Fentanyl Citrate (Sublimaze (100mcg Ampule)) 25 mcg IV Q4H PRN PRN Reason: PAIN Last Admin: 05/14/18 08:53 Dose: 25 mcg Meropenem 1 gm/ Sodium (Chloride) 120 mls @ 33 mls/hr IV Q8 [facility] Last Admin: 05/14/18 06:41 Dose: 33 mls/hr Norepinephrine Bitartrate 8 mg (/ Dextrose) 258 mls @ 9.68 mls/hr IV .[id number] [facility] Last Admin: 05/14/18 03:38 Dose: 9.68 mls/hr Magnesium Hydroxide (Milk Of Magnesia) 30 ml PO DAILY PRN PRN Reason: Constipation Magnesium Oxide (Mag-Ox 400) 400 mg PO DAILY [facility] Last Admin: 05/13/18 08:22 Dose: 400 mg Ondansetron HCl (Zofran) 4 mg IV Q6H PRN PRN PRN Reason: Nausea Oxycodone HCl (Oxyir) 5 mg PO Q4H PRN PRN PRN Reason: Moderate Pain (pain scale 4-5) Last Admin: 05/13/18 08:24 Dose: 5 mg Potassium Chloride (K-Dur) 10 meq PO DAILY [facility] Last Admin: 05/13/18 08:22 Dose: 10 meq Psyllium Hydrophilic Mucilloid (Metamucil) 1 packet PO DAILY PRN PRN PRN Reason: CONSTIPATION Sodium Chloride () 5 - 15 ml IV UD PRN PRN Reason: SALINE FLUSH Last Admin: 05/14/18 08:53 Dose: 10 ml Warfarin Sodium (Coumadin (Pbkc)) 5 mg PO DAILY@1700 [facility] Last Admin: 05/13/18 15:49 Dose: Not Given Zolpidem Tartrate (Ambien (Generic)) 5 mg PO QHS PRN PRN PRN Reason: INSOMNIA Last Admin: 05/12/18 21:37 Dose: 5 mg Medical Necessity - Tobacco Use Smoking Status: Current every day smoker Tobacco Use: Cigarettes Assessment/Plan All Active Problems (Last Reviewed 05/04/18 @ 08:39 by Prasanth Pradhan MD) Gross hematuria (Acute) Overweight (Acute) MASOOD (obstructive sleep apnea) (Acute) Colovesical fistula (Acute) Large bowel anastomotic leak (Acute) Sepsis associated hypotension (Acute) 1. Septic shock due to anastomotic leak and intraabdominal abscess patient still on levophed. s/p exploratory laparotomy with diverting colostomy on IV meropenem general surgery on board; per their notes, patient to start clear liquids today. 2. LLE DVT: developed after sugery. Coumadin with Lovenox for bridging. INR today is 1.9 3. Colovesical fistula s/p colectomy complicated by anastomotic leak and intra-abdominal abscess today is POD 7. Today's postop day 1 of exploratory laparotomy for anastomotic leak with end-colostomy placement. general surgery on board 4. Acute hypoxic respiratory failure extubated this morning after being intubated for surgery currently on 13L of oxygen to wean off as tolerated to maintain sats>90% 5. Gross hematuria: resolved. Maldonado catheter in place. to follow up with urology on outpatient basis 6. Possible gout: foot pain is better.Will monitor 7. CAD and ischemic cardiomyopathy has known EF of 30% has a history of left atrial appendage thrombus. cardiology on board Beta-blockers, Lasix and lisinopril on hold on account of hypotension 8.Hypertension: Carvedilol, lisinopril on hold on account of hypotension. 9. A. fib: Developed RVR yesterday which is likely as a result of septic shock. HR now in 110s. Will monitor 10. MASOOD: Noncompliant with CPAP. DVT prophylaxis: Coumadin and Lovenox for bridging. INR today is 1.9 Code Visit Inpatient E&M: [id number] [facility] L3
--- NOTE | 2018-05-14 09:57 | PN_ITS ---
Patient Problems: Active and Suspected Problems (Last Reviewed 05/04/18 @ 08:39 by Prasanth Pradhan MD) Gross hematuria (Acute) Overweight (Acute) MASOOD (obstructive sleep apnea) (Acute) non-compliant with CPAP Peripheral arterial disease (Suspected) Colovesical fistula (Acute) Large bowel anastomotic leak (Acute) Sepsis associated hypotension (Acute) Subjective: Patient seen and examined. He complained of feeling thirsty. He denied any fever or chills, any palpitations or dizziness, any abdominal pain, any diarrhea vomiting. He had urgent exploratory laparotomy with end colostomy creation yesterday on account of anastomotic leak. He was transferred to the ICU on account of sepsis likely due to anastomotic leak and abdominal abscess formation. He is currently on IV meropenem. 12 point review of systems otherwise negative. Labs and vitals reviewed. Vitals/I&O's: Vital Signs Temp Pulse Resp BP Pulse Ox 98.3 F 111 H 27 H 103/51 L 93 05/14/18 08:00 05/14/18 09:00 05/14/18 09:00 05/14/18 09:00 05/14/18 09:00 Oxygen Flow Rate (L/min) 6 Oxygen Delivery Method Venturi Mask Weight: 235 lb 0.204 oz Body Mass Index (BMI) 29.9 Orthostatic Vital Signs Start: 05/13/18 10:09 Freq: q24h Status: Active Protocol: Activity Type Activity Date Activity User E-Sign Co-Sign Detail Recorded Client Recorded Date Recorded By Document 05/13/18 09:25 MLB [id number] 05/13/18 10:10 MLB 05/13/18 09:25 Orthostatic Vitals Standing -Blood Pressure (90/60-120/80) 73/56 L -Extremity Use Left Arm -Pulse Rate (60-100) 110 H Sitting -Blood Pressure (90/60-120/80) 82/64 L -Extremity Use Left Arm -Pulse Rate (60-100) 100 Lying -Blood Pressure (90/60-120/80) 110/68 -Extremity Use Left Arm -Pulse Rate (60-100) 103 H Intake and Output for Last 24 Hours 05/12/18 05/13/18 05/14/18 23:59 23:59 23:59 Intake Total 2184.6 / 2184.6 1440.8 / 1440.8 1592.3 / 1592.3 Output Total 1665 / 1665 1575 / 1575 210 / 210 Balance 519.6 / 519.6 -134.2 / -134.2 1382.3 / 1382.3 General: Alert, Oriented x3, Cooperative, HEENT: Atraumatic, PERRLA, EOMI, Normocephalic Oral: dry mucosa Neck: Supple, No JVD, Negative Carotid Bruits, Negative Hepatojugular Reflux, No Nodes Lungs: - - decreased breath sounds bibasally; no wheezes or crackles. tachypneic. on 13L of oxygen Cardiovascular: Regular rate, Regular Rhythm, Normal S1, Normal S2, No murmurs Abdomen: Bowel Sounds Present, Soft, - - has diverting colostomy in place; minimal tenderness, abdomen still distended, but not as severe as yesterday. Extremities: No clubbing, No cyanosis, No edema, Capillary Refill Less than 3 Seconds Skin: No rashes, No breakdown Musculoskeletal: No Tenderness to Palpation of Joints or Extremities Lymphatic: No Cervical, Supraclavicular, or Inguinal Adenopathy Neurological: Cranial nerves II-XII grossly intact, Neuro grossly intact, Motor Exam 5/5 strength throughout Psych/Mental Status: Normal Affect, Anxious, Alert and oriented to time, place, person, mood and affect Laboratory Results 05/13/18 11:26: Lactic Acid 2.7 H 05/13/18 15:56: Lactic Acid 1.1 05/13/18 17:54: WBC 7.7, RBC 2.92 L, Hgb 10.9 L, Hct 33.2 L, MCV 113.7 H, MCH 37.3 H, MCHC 32.8, RDW 14.2, RDW Differential 59.1 H, Plt Count 348, MPV 10.8 05/13/18 17:54: PT 19.8 H, INR 1.7, APTT 39.6 H 05/13/18 17:54: Sodium 135 L, Potassium 3.9, Chloride 100, Carbon Dioxide 28.0, Anion Gap 7, BUN 8, Creatinine 0.76, Estim Creat Clear Calc 112.03, Est GFR (MDRD) Af Amer 133, Est GFR (MDRD) Non-Af 110, BUN/Creatinine Ratio 10.5, Glucose 107 H, Calcium 7.7 L 05/13/18 18:13: Specimen Type CLEOPATRA, Sample Site OTHER, pH 7.48 H, Bicarbonate Actual 26.8 H, POC Total CO2 28, Base Excess 3 H, O2 Saturation 94 L, O2 % 100, ABG pCO2 35.8, ABG pO2 66 L, Respiration Rate 12, O2 Delivery Device Vent, Vent Mode A-C, Tidal Volume 640, POC PEEP 10, Blood Gas Notified Whom TANNER WOODALL, Blood Gas Notified Time 18105/13/18 21:00: Total Creatine Kinase 157, Triglycerides 66 05/13/18 23:25: Specimen Type CLEOPATRA, Sample Site L Radial, pH 7.55 H, Bicarbona te Actual 26.5 H, POC Total CO2 27, Base Excess 4 H, O2 Saturation 97, O2 % 60, ABG pCO2 30.6 L, ABG pO2 74 L, Rod Test NA, Respiration Rate 14, O2 Delivery Device Vent, Vent Mode A-C, Tidal Volume 450, POC PEEP 8, Blood Gas Notified Whom RN, Blood Gas Notified Time 23305/14/18 03:50: WBC 11.6 H, RBC 3.14 L, Hgb 11.6 L, Hct 35.6 L, MCV 113.4 H, MCH 36.9 H, MCHC 32.6, RDW 14.6, RDW Differential 60.4 H, Plt Count 399, MPV 11.1, Immature Gran % (Auto) 0.800, Neut % (Auto) 78.2 H, Lymph % (Auto) 11.7 L, [place] % (Auto) 8.9, Eos % (Auto) 0.3, Baso % (Auto) 0.1, Absolute Neuts (auto) 9.1 H, Absolute Lymphs (auto) 1.36, Total Counted Not Reportable 05/14/18 03:50: Sodium 141, Potassium 3.5, Chloride 103, Carbon Dioxide 26.0, Anion Gap 12, BUN 12, Creatinine 1.29, Estim Creat Clear Calc 66.00, Est GFR (MDRD) Af Amer 73, Est GFR (MDRD) Non-Af 60, BUN/Creatinine Ratio 9.3 L, Glucose 97, Calcium 7.6 L 05/14/18 03:52: Specimen Type CLEOPATRA, Sample Site L Radial, pH 7.48 H, Bicarbonate Actual 27.8 H, POC Total CO2 29, Base Excess 4 H, O2 Saturation 98, O2 % 60, ABG pCO2 37.2, ABG pO2 93, Rod Test NA, Respiration Rate 12, O2 Delivery Device Vent, Vent Mode A-C, Tidal Volume 450, POC PEEP 8, Blood Gas Notified Whom RN, Blood Gas Notified Time 350 05/14/18 04:10: PT 21.8 H, INR 1.9 Diagnostic Data Abdomen/Pelvis CT 05/13/18 10:28 IMPRESSION: Small bilateral pleural effusions with bibasilar infiltrates and/or atelectasis. Small amount of perihepatic as well as perisplenic fluid as well as fluid in the pelvis. Small amount of fluid in the Colic gutters. Postoperative changes in the region of the umbilicus there Distention of the ascending colon and transverse colon and descending colon down to the region of the anastomosis at the rectosigmoid junction. A Maldonado catheter seen within the urinary bladder. Electronically Signed: Johnny Neil MD at 13:48 EST , Service support , Chest X-Ray 05/13/18 19:24 IMPRESSION: Interval placement endotracheal and enteric tubes as above. at 1955 Reported and signed by: Jason Goins MD Electronically Signed: Jason Goins, at 19:54 EST Tel , Service support , Current Medications Albuterol/Ipratropium (Duoneb) 3 ml INHALATION Q4H.RT [facility] Last Admin: 05/14/18 03:28 Dose: Not Given Atorvastatin Calcium (Lipitor) 40 mg PO HS [facility] Last Admin: 05/13/18 22:21 Dose: Not Given Bisacodyl (Dulcolax) 5 mg PO DAILY PRN PRN PRN Reason: Constipation Chlorhexidine Gluconate () 1 each TOPICAL DAILY [facility] Docusate Sodium (Colace) 100 mg PO BID [facility] Last Admin: 05/13/18 22:21 Dose: Not Given Enoxaparin Sodium (Lovenox) 100 mg SC Q12 [facility] Last Admin: 05/13/18 22:49 Dose: 100 mg Fentanyl Citrate (Sublimaze (100mcg Ampule)) 25 mcg IV Q4H PRN PRN Reason: PAIN Last Admin: 05/14/18 08:53 Dose: 25 mcg Meropenem 1 gm/ Sodium (Chloride) 120 mls @ 33 mls/hr IV Q8 [facility] Last Admin: 05/14/18 06:41 Dose: 33 mls/hr Norepinephrine Bitartrate 8 mg (/ Dextrose) 258 mls @ 9.68 mls/hr IV .[id number] [facility] Last Admin: 05/14/18 03:38 Dose: 9.68 mls/hr Magnesium Hydroxide (Milk Of Magnesia) 30 ml PO DAILY PRN PRN Reason: Constipation Magnesium Oxide (Mag-Ox 400) 400 mg PO DAILY [facility] Last Admin: 05/13/18 08:22 Dose: 400 mg Ondansetron HCl (Zofran) 4 mg IV Q6H PRN PRN PRN Reason: Nausea Oxycodone HCl (Oxyir) 5 mg PO Q4H PRN PRN PRN Reason: Moderate Pain (pain scale 4-5) Last Admin: 05/13/18 08:24 Dose: 5 mg Potassium Chloride (K-Dur) 10 meq PO DAILY [facility] Last Admin: 05/13/18 08:22 Dose: 10 meq Psyllium Hydrophilic Mucilloid (Metamucil) 1 packet PO DAILY PRN PRN PRN Reason: CONSTIPATION Sodium Chloride () 5 - 15 ml IV UD PRN PRN Reason: SALINE FLUSH Last Admin: 05/14/18 08:53 Dose: 10 ml Warfarin Sodium (Coumadin (Pbkc)) 5 mg PO DAILY@1700 [facility] Last Admin: 05/13/18 15:49 Dose: Not Given Zolpidem Tartrate (Ambien (Generic)) 5 mg PO QHS PRN PRN PRN Reason: INSOMNIA Last Admin: 05/12/18 21:37 Dose: 5 mg Medical Necessity - Tobacco Use Smoking Status: Current every day smoker Tobacco Use: Cigarettes Assessment/Plan All Active Problems (Last Reviewed 05/04/18 @ 08:39 by Prasanth Pradhan MD) Gross hematuria (Acute) Overweight (Acute) MASOOD (obstructive sleep apnea) (Acute) Colovesical fistula (Acute) Large bowel anastomotic leak (Acute) Sepsis associated hypotension (Acute) 1. Septic shock due to anastomotic leak and intraabdominal abscess * patient still on levophed. * s/p exploratory laparotomy with diverting colostomy * on IV meropenem * general surgery on board; per their notes, patient to start clear liquids today. * * 2. LLE DVT: developed after sugery. * Coumadin with Lovenox for bridging. * INR today is 1.9 * 3. Colovesical fistula s/p colectomy complicated by anastomotic leak and intra- abdominal abscess * today is POD 7. * Today's postop day 1 of exploratory laparotomy for anastomotic leak with end- colostomy placement. * general surgery on board * * 4. Acute hypoxic respiratory failure * extubated this morning after being intubated for surgery * currently on 13L of oxygen * to wean off as tolerated to maintain sats>90% * 5. Gross hematuria: resolved. Maldonado catheter in place. to follow up with urology on outpatient basis 6. Possible gout: foot pain is better.Will monitor * 7. CAD and ischemic cardiomyopathy * has known EF of 30% * has a history of left atrial appendage thrombus. cardiology on board * Beta-blockers, Lasix and lisinopril on hold on account of hypotension * 8.Hypertension: Carvedilol, lisinopril on hold on account of hypotension. 9. A. fib: Developed RVR yesterday which is likely as a result of septic shock. HR now in 110s. Will monitor 10. MASOOD: Noncompliant with CPAP. DVT prophylaxis: Coumadin and Lovenox for bridging. INR today is 1.9 Code Visit Inpatient E&M: [id number] [facility] L3
[2018-05-14] MEDS: oxyCODONE 5 MG Tablet PO ×3 (10:35→21:59)
[2018-05-14] MEDS: Enoxaparin 100 MG/ML Syringe SC ×2 (10:37→22:01)
[2018-05-14] MEDS: CHLORHEXIDINE GLUC 2% CLOTH 1 EACH TOWELETTE TOPICAL (10:37)
[2018-05-14] MEDS: Magnesium Oxide 400 MG Tablet PO (10:37)
[2018-05-14 11:10] LABS: Anion Gap 7 (5-15); BUN 15 mg/dL (7-18); BUN/Creat Ratio 13.8 RATIO (10-20); Calcium,Total 7.7 mg/dL (8.5-10.1); Chloride 102 mmol/L (98-107); Creatinine, Serum 1.09 mg/dL (0.70-1.30); EST Glomerular Filtration Rate 73 mL/min (>60); Est Glom Filt Rate - Afr Amer 88 mL/min (>60); Estimated Creatinine Clearance 78.11 ml/min; Glucose 107 mg/dL (74-106); Magnesium 1.9 mg/dL (1.6-2.6); Potassium 3.2 mmol/L (3.5-5.1); Sodium Level 139 mmol/L (136-145)
--- NOTE | 2018-05-14 12:12 | NURSING ---
stoma to the left lower abdomen is beefy red, edematous, and very well budded. ostomy appliance is intact at this time. Did not remove since it was just applied last evening. there is no flatus noted. small amount of serosanguineous drainage noted in the pouch. will continuous to follow.
--- NOTE | 2018-05-14 12:19 | NURSING ---
wound photo: mid lower abdomen
[2018-05-14] MEDS: Ondansetron 4 MG/2 ML Vial IV (12:55)
--- NOTE | 2018-05-14 15:22 | CASEMGMT ---
SW spoke with patient about rehab at d/c. SW told him about [facility] and he seemed to be in agreement with this. SW told him SW will continue to follow and if has any questions to let us know. Plan: TCU pending patient being medically ready. Riana MANCINI MSW
[2018-05-14] MEDS: Docusate Sodium 100 MG Capsule PO (22:00)
[2018-05-14] MEDS: Atorvastatin Calcium 40 MG Tablet PO (22:01)
[2018-05-15] VITALS (25 sets, daily range): BP systolic 87–125; BP diastolic 58–106; PULSE 82–120; RESP 16–34; TEMP 35.9–37.1; O2SAT 90–94
[2018-05-15 04:22] LABS: Absolute Lymphocyte Count 1.19 X10^3/ul (0.83-4.51); Absolute Neutrophil Count 11.9 X10^3/uL (2.0-7.7); Basophil# 0.02 X10^3/uL; Basophil% 0.1 % (0-1); Eosinophil# 0.19 X10^3/uL; Eosinophils% 1.3 % (0-5); Hematocrit 35.3 % (40-54); Hemoglobin 11.3 g/dl (13.0-16.5); Lymphocyte # 1.19 X10^3/ul (4.0); Lymphocyte % 8.1 % (19-41); Mean Corpuscular Hgb 36.5 pg (27.0-32.0); Mean Corpuscular Volume 113.9 fL (80-94); Mean Platelet Vol. 11.1 fl (6.2-12.0); Monocyte# 1.17 X10^3/uL; Neutrophil # 11.93 X10^3/uL (2.7-7.7); Neutrophil % 81.7 % (47-70); POSITIVE COUNT NO; POSITIVE DIFFERENTIAL NO; POSITIVE MORPHOLOGY NO; Platelet Count 404 K/mm3 (150-450); RBC Distribution Width CV 14.8 % (11.6-14.6); RBC Distribution Width SD 61.9 fl (35.1-43.9); White Blood Count 14.6 K/mm3 (4.4-11.0)
[2018-05-15 04:44] LABS: Anion Gap 10 (5-15); BUN 24 mg/dL (7-18); BUN/Creat Ratio 25.8 RATIO (10-20); Chloride 100 mmol/L (98-107); Creatinine, Serum 0.93 mg/dL (0.70-1.30); EST Glomerular Filtration Rate 88 mL/min (>60); Est Glom Filt Rate - Afr Amer 106 mL/min (>60); Estimated Creatinine Clearance 91.55 ml/min; Glucose 138 mg/dL (74-106); Potassium 3.5 mmol/L (3.5-5.1); Sodium Level 141 mmol/L (136-145)
[2018-05-15] MEDS: oxyCODONE 5 MG Tablet PO ×2 (06:16→20:27)
--- NOTE | 2018-05-15 06:33 | PN_ITS ---
Subjective: The patient was seen and examined at the bedside this morning. Events from the last 24 hours have been reviewed. The patient is currently afebrile, hemodynamically stable and maintaining appropriate oxygen saturations on 5 L/min via nasal cannula. The patient remains in atrial fibrillation. No overnight issues were identified by the nursing staff. The patient was able to get out of bed yesterday and sit in his chair for most of the afternoon. He is currently documented to be overall net +6.3 L for the admission. The patient reports that his pain is currently under control. Objective: The patient's most recent lab work, culture data and imaging studies have all been personally reviewed. Blood cultures have shown no growth to date. General: Alert, Cooperative, No apparent distress HEENT: Atraumatic, PERRLA, Normocephalic Oral: No Gingival or Mucosal Lesions/ Ulcerations Neck: Supple, No Nodes, Trachea Midline Lungs: No rhonchi, No wheeze, No rales, Diminished Cardiovascular: Normal S1, Normal S2, No murmurs, Irregular Rate, Tachycardic Abdomen: Soft, Tender, - - Retention sutures, ostomy and RICARDO in place Extremities: No clubbing, No cyanosis, Edema Skin: - - No significant change from previous. Musculoskeletal: No Tenderness to Palpation of Joints or Extremities Lymphatic: No Cervical, Supraclavicular, or Inguinal Adenopathy Neurological: Cranial nerves II-XII grossly intact, Neuro grossly intact Psych/Mental Status: Normal Affect, Appropriate Vital Signs Temp Pulse Resp BP Pulse Ox 36.1 C L 120 H 21 H 121/83 H 93 05/15/18 04:00 05/15/18 06:00 05/15/18 06:00 05/15/18 06:00 05/15/18 06:00 Oxygen Flow Rate (L/min) 5 Oxygen Delivery Method Nasal Cannula Weight: 235 lb 10.786 oz Body Mass Index (BMI) 29.9 Intake and Output for Last 24 Hours 05/13/18 05/14/18 05/15/18 23:59 23:59 23:59 Intake Total 1440.8 / 1440.8 2795.2 / 2795.2 681 / 681 Output Total 1575 / 1575 777 / 777 300 / 300 Balance -134.2 / -134.2 / 2017.2 381 / 381 Labs (Last 48 Hours) 05/13/18 05/13/18 05/13/18 05:15 11:26 15:56 WBC RBC Hgb Hct MCV MCH MCHC RDW RDW Differential Plt Count MPV Immature Gran % (Auto) Neut % (Auto) Lymph % (Auto) [place] % (Auto) Eos % (Auto) Baso % (Auto) Absolute Neuts (auto) Absolute Lymphs (auto) Total Counted PT 18.5 H INR 1.6 APTT Specimen Type Sample Site pH Bicarbonate Actual POC Total CO2 Base Excess O2 Saturation O2 % ABG pCO2 ABG pO2 Rod Test Respiration Rate O2 Delivery Device Vent Mode Tidal Volume POC PEEP Blood Gas Notified Whom Blood Gas Notified Time Sodium Potassium Chloride Carbon Dioxide Anion Gap BUN Creatinine Estim Creat Clear Calc Est GFR (MDRD) Af Amer Est GFR (MDRD) Non-Af BUN/Creatinine Ratio Glucose Lactic Acid 2.7 H 1.1 Calcium Magnesium Total Creatine Kinase Triglycerides 05/13/18 05/13/18 05/13/18 17:54 17:54 17:54 WBC 7.7 RBC 2.92 L Hgb 10.9 L Hct 33.2 L MCV 113.7 H MCH 37.3 H MCHC 32.8 RDW 14.2 RDW Differential 59.1 H Plt Count 348 MPV 10.8 Immature Gran % (Auto) Neut % (Auto) Lymph % (Auto) [place] % (Auto) Eos % (Auto) Baso % (Auto) Absolute Neuts (auto) Absolute Lymphs (auto) Total Counted PT 19.8 H INR 1.7 APTT 39.6 H Specimen Type Sample Site pH Bicarbonate Actual POC Total CO2 Base Excess O2 Saturation O2 % ABG pCO2 ABG pO2 Rod Test Respiration Rate O2 Delivery Device Vent Mode Tidal Volume POC PEEP Blood Gas Notified Whom Blood Gas Notified Time Sodium 135 L Potassium 3.9 Chloride 100 Carbon Dioxide 28.0 Anion Gap 7 BUN 8 Creatinine 0.76 Estim Creat Clear Calc 112.03 Est GFR (MDRD) Af Amer 133 Est GFR (MDRD) Non-Af 110 BUN/Creatinine Ratio 10.5 Glucose 107 H Lactic Acid Calcium 7.7 L Magnesium Total Creatine Kinase Triglycerides 05/13/18 05/13/18 05/13/18 18:13 21:00 23:25 WBC RBC Hgb Hct MCV MCH MCHC RDW RDW Differential Plt Count MPV Immature Gran % (Auto) Neut % (Auto) Lymph % (Auto) [place] % (Auto) Eos % (Auto) Baso % (Auto) Absolute Neuts (auto) Absolute Lymphs (auto) Total Counted PT INR APTT Specimen Type [facility] Sample Site OTHER L Radial pH 7.48 H 7.55 H Bicarbonate Actual 26.8 H 26.5 H POC Total CO2 28 27 Base Excess 3 H 4 H O2 Saturation 94 L 97 O2 % 100 60 ABG pCO2 35.8 30.6 L ABG pO2 66 L 74 L Rod Test NA Respiration Rate 12 14 O2 Delivery Device Vent Vent Vent Mode A-C A-C Tidal Volume 640 450 POC PEEP 10 8 Blood Gas Notified Whom TANNER WOODALL RN Blood Gas Notified Time 1813 2330 Sodium Potassium Chloride Carbon Dioxide Anion Gap BUN Creatinine Estim Creat Clear Calc Est GFR (MDRD) Af Amer Est GFR (MDRD) Non-Af BUN/Creatinine Ratio Glucose Lactic Acid Calcium Magnesium Total Creatine Kinase 157 Triglycerides 66 05/14/18 05/14/18 05/14/18 03:50 03:50 03:52 WBC 11.6 H RBC 3.14 L Hgb 11.6 L Hct 35.6 L MCV 113.4 H MCH 36.9 H MCHC 32.6 RDW 14.6 RDW Differential 60.4 H Plt Count 399 MPV 11.1 Immature Gran % (Auto) 0.800 Neut % (Auto) 78.2 H Lymph % (Auto) 11.7 L [place] % (Auto) 8.9 Eos % (Auto) 0.3 Baso % (Auto) 0.1 Absolute Neuts (auto) 9.1 H Absolute Lymphs (auto) 1.36 Total Counted Not Reportable PT INR APTT Specimen Type [place] Sample Site L Radial pH 7.48 H Bicarbonate Actual 27.8 H POC Total CO2 29 Base Excess 4 H O2 Saturation 98 O2 % 60 ABG pCO2 37.2 ABG pO2 93 Rod Test NA Respiration Rate 12 O2 Delivery Device Vent Vent Mode A-C Tidal Volume 450 POC PEEP 8 Blood Gas Notified Whom RN Blood Gas Notified Time 350 Sodium 141 Potassium 3.5 Chloride 103 Carbon Dioxide 26.0 Anion Gap 12 BUN 12 Creatinine 1.29 Estim Creat Clear Calc 66.00 Est GFR (MDRD) Af Amer 73 Est GFR (MDRD) Non-Af 60 BUN/Creatinine Ratio 9.3 L Glucose 97 Lactic Acid Calcium 7.6 L Magnesium Total Creatine Kinase Triglycerides 05/14/18 05/14/18 05/15/18 04:10 10:45 04:05 WBC 14.6 H RBC 3.10 L Hgb 11.3 L Hct 35.3 L MCV 113.9 H MCH 36.5 H MCHC 32.0 RDW 14.8 H RDW Differential 61.9 H Plt Count 404 MPV 11.1 Immature Gran % (Auto) 0.800 Neut % (Auto) 81.7 H Lymph % (Auto) 8.1 L [place] % (Auto) 8.0 Eos % (Auto) 1.3 Baso % (Auto) 0.1 Absolute Neuts (auto) 11.9 H Absolute Lymphs (auto) 1.19 Total Counted Not Reportable PT 21.8 H INR 1.9 APTT Specimen Type Sample Site pH Bicarbonate Actual POC Total CO2 Base Excess O2 Saturation O2 % ABG pCO2 ABG pO2 Rod Test Respiration Rate O2 Delivery Device Vent Mode Tidal Volume POC PEEP Blood Gas Notified Whom Blood Gas Notified Time Sodium 139 Potassium 3.2 L Chloride 102 Carbon Dioxide 30.0 Anion Gap 7 BUN 15 Creatinine 1.09 Estim Creat Clear Calc 78.11 Est GFR (MDRD) Af Amer 88 Est GFR (MDRD) Non-Af 73 BUN/Creatinine Ratio 13.8 Glucose 107 H Lactic Acid Calcium 7.7 L Magnesium 1.9 Total Creatine Kinase Triglycerides 05/15/18 04:05 WBC RBC Hgb Hct MCV MCH MCHC RDW RDW Differential Plt Count MPV Immature Gran % (Auto) Neut % (Auto) Lymph % (Auto) [place] % (Auto) Eos % (Auto) Baso % (Auto) Absolute Neuts (auto) Absolute Lymphs (auto) Total Counted PT INR APTT Specimen Type Sample Site pH Bicarbonate Actual POC Total CO2 Base Excess O2 Saturation O2 % ABG pCO2 ABG pO2 Rod Test Respiration Rate O2 Delivery Device Vent Mode Tidal Volume POC PEEP Blood Gas Notified Whom Blood Gas Notified Time Sodium 141 Potassium 3.5 Chloride 100 Carbon Dioxide 31.0 Anion Gap 10 BUN 24 H Creatinine 0.93 Estim Creat Clear Calc 91.55 Est GFR (MDRD) Af Amer 106 Est GFR (MDRD) Non-Af 88 BUN/Creatinine Ratio 25.8 H Glucose 138 H Lactic Acid Calcium 8.0 L Magnesium Total Creatine Kinase Triglycerides Clinical Impression(s) from Imaging Studies Abdomen/Pelvis CT 05/03/18 07:41 IMPRESSION: Large bladder mass as described causing a marked degree of bladder dilatation. Air is seen within the urinary bladder. This may be related to Maldonado catheter manipulation. If not, a colovesical fistula should be ruled out. Electronically Signed: Johnny Neil MD at 9:02 EST , Service support , Chest X-Ray 05/03/18 09:37 IMPRESSION: Mild cardiomegaly. Electronically Signed: Johnny Neil MD at 10:05 EST , Service support , Abdomen/Pelvis CT 05/04/18 07:00 IMPRESSION: Evaluation was performed to evaluate for a colovesical fistula. Please note that a study prior to injection of rectal contrast was not performed. This somewhat limits evaluation. There is hyperdense material in the bladder at time of prior study May 03, 2018 which most likely represented a hematoma. On today's examination again noted is gas as well as hyperdense material within the bladder. There is intimate association with a segment of the sigmoid colon with the urinary bladder. There is a small focus of gas within the bladder at this region. Findings would be concerning for a colovesical fistula. Correlate with urinalysis. Interval placement of a Maldonado catheter. The previously noted bladder hyperdense masslike lesion has significantly decreased in size. Likely representing a large hematoma. Recommend follow-up to ensure resolution. Diverticulosis is present. There is some thickening of the sigmoid colon with some stranding concerning for diverticulitis. Infrarenal abdominal aortic aneurysm. Decreasing right hydronephrosis. Evidence of prior granulomatous disease. Bilateral nephrolithiasis. Electronically Signed: Dawood Morrison, at 7:57 EST Tel , Service support , Chest X-Ray 05/10/18 05:55 IMPRESSION: Atelectasis and/or infiltrates at the lung bases worse on the left side with blunting of left costophrenic angle. Electronically Signed: Johnny Neil MD at 9:43 EST , Service support , Chest X-Ray 05/12/18 16:45 IMPRESSION: 1. Decreased bibasilar atelectasis. No organizing infiltrates seen. 2. Gaseous distention of bowel in the upper abdomen, incompletely visualized. 3. Mild cardiomegaly. Electronically Signed: Tunde Cole MD at 17:03 EST , Service support , Abdomen/Pelvis CT 05/13/18 10:28 IMPRESSION: Small bilateral pleural effusions with bibasilar infiltrates and/or atelectasis. Small amount of perihepatic as well as perisplenic fluid as well as fluid in the pelvis. Small amount of fluid in the [place] gutters. Postoperative changes in the region of the umbilicus there Distention of the ascending colon and transverse colon and descending colon down to the region of the anastomosis at the rectosigmoid junction. A Maldonado catheter seen within the urinary bladder. Electronically Signed: Johnny Neil MD at 13:48 EST , Service support , Chest X-Ray 05/13/18 14:18 IMPRESSION: The tip of the right internal jugular venous catheter is in the proximal portion of the superior vena cava. There is no evidence of pneumothorax. Stable appearance of the lungs. Electronically Signed: Johnny Neil MD at 15:52 EST , Service support , Chest X-Ray 05/13/18 19:24 IMPRESSION: Interval placement endotracheal and enteric tubes as above. at 1954 Reported and signed by: Jason Goins MD Electronically Signed: Jason Goins, at 19:54 EST Tel , Service support , Medical Necessity - Tobacco Use Smoking Status: Current every day smoker Tobacco Use: Cigarettes Assessment/Plan All Active Problems (Last Reviewed 05/04/18 @ 08:39 by Prasanth Pradhan MD) Gross hematuria (Acute) Overweight (Acute) MAOSOD (obstructive sleep apnea) (Acute) Colovesical fistula (Acute) Large bowel anastomotic leak (Acute) Sepsis associated hypotension (Acute) RECOMMENDATIONS: 1. Continue to wean supplemental oxygen as tolerated to maintain a saturation of 90%. Encourage incentive spirometer use. 2. Continue empiric antibiotics as ordered. 3. Restart home beta-bravo. 4. Continue fentanyl for pain. 5. Diet advancement per surgery recommendations. 6. Physical therapy to continue to work with patient. 7. Continue Coumadin with plans to check daily INR. IMPRESSIONS: 1. Septic shock with concern for intra-abdominal infectious process due to anastomotic leak Improved. The patient was transferred back to the medical intensive care unit after he became septic once again in the PCU. The patient was taken back to the OR on May 13 due to the presence of an anastomotic leak and underwent exploratory laparotomy with creation of an end colostomy. Postoperatively, the patient did have a transient vasopressor requirement. He has since been weaned from Levophed and has maintained hemodynamic stability. Empiric antibiotics are going to be continued accordingly. 2. Acute respiratory failure Improved. The patient was able to be liberated from mechanical ventilation without issue. He currently has a supplemental oxygen requirement, which will be weaned as tolerated. Encourage incentive spirometer use. 3. Coronary artery disease/chronic systolic heart failure Continue current medical therapy. The patient is on Lasix as an outpatient. This can likely be resumed. 4. Paroxysmal atrial fibrillation Continue systemic anticoagulation as ordered. Check daily INR. We will plan to resume the patient's home beta blockade regimen as well. 5. History of obstructive sleep apnea Recommend use of nocturnal noninvasive positive pressure ventilation as tolerated. This note was generated with [email or web address]ation software. It may contain incorrect words, spelling, and punctuation that were not noted in checking the note before signing. DISPOSITION: The patient is medically stable for transfer out of the intensive care unit, from my perspective. Code Visit Inpatient E&M: 79537 Subs Hosp L3
--- NOTE | 2018-05-15 09:25 | PCM.PN.HOSP ---
Patient Problems: Active and Suspected Problems (Last Reviewed 05/04/18 @ 08:39 by Prasanth Pradhan MD) Gross hematuria (Acute) Overweight (Acute) MASOOD (obstructive sleep apnea) (Acute) non-compliant with CPAP Peripheral arterial disease (Suspected) Colovesical fistula (Acute) Large bowel anastomotic leak (Acute) Sepsis associated hypotension (Acute) Subjective: Patient seen and examined. He feels well and has no complaints. He denies any fever or chills, any chest pain, abdominal pain, any diarrhea vomiting. He did admit to some mild palpitations but he had been off his carvedilol on account of hypotension. Labs and vitals reviewed. Patient to be transferred to progressive care unit today. Vitals/I&O's: Vital Signs Temp Pulse Resp BP Pulse Ox 96.6 F L 117 H 16 121/75 H 94 05/15/18 08:00 05/15/18 08:00 05/15/18 08:00 05/15/18 08:00 05/15/18 08:00 Oxygen Flow Rate (L/min) 4 Oxygen Delivery Method Nasal Cannula Weight: 235 lb 10.786 oz Body Mass Index (BMI) 29.9 Intake and Output for Last 24 Hours 05/13/18 05/14/18 05/15/18 23:59 23:59 23:59 Intake Total 1440.8 / 1440.8 2795.2 / 2795.2 801 / 801 Output Total 1575 / 1575 777 / 777 510 / 510 Balance -134.2 / -134.2 / 2017.2 291 / 291 General: Alert, Oriented x3, Cooperative, HEENT: Atraumatic, PERRLA, EOMI, Normocephalic Oral: dry mucosa Neck: Supple, No JVD, Negative Carotid Bruits, Negative Hepatojugular Reflux, No Nodes Lungs: - - decreased breath sounds bibasally; no wheezes or crackles. tachypneic. on 4L of oxygen Cardiovascular: Regular rate, Regular Rhythm, Normal S1, Normal S2, No murmurs Abdomen: Bowel Sounds Present, Soft, - - has diverting colostomy in place; minimal tenderness, abdomen mildly distended Extremities: No clubbing, No cyanosis, No edema, Capillary Refill Less than 3 Seconds Skin: No rashes, No breakdown Musculoskeletal: No Tenderness to Palpation of Joints or Extremities Lymphatic: No Cervical, Supraclavicular, or Inguinal Adenopathy Neurological: Cranial nerves II-XII grossly intact, Neuro grossly intact, Motor Exam 5/5 strength throughout Psych/Mental Status: Normal Affect, Anxious, Alert and oriented to time, place, person, mood and affect Laboratory Results 05/14/18 10:45: Sodium 139, Potassium 3.2 L, Chloride 102, Carbon Dioxide 30.0, Anion Gap 7, BUN 15, Creatinine 1.09, Estim Creat Clear Calc 78.11, Est GFR (MDRD) Af Amer 88, Est GFR (MDRD) Non-Af 73, BUN/Creatinine Ratio 13.8, Glucose 107 H, Calcium 7.7 L, Magnesium 1.9 05/15/18 04:05: WBC 14.6 H, RBC 3.10 L, Hgb 11.3 L, Hct 35.3 L, MCV 113.9 H, MCH 36.5 H, MCHC 32.0, RDW 14.8 H, RDW Differential 61.9 H, Plt Count 404, MPV 11.1, Immature Gran % (Auto) 0.800, Neut % (Auto) 81.7 H, Lymph % (Auto) 8.1 L, [place] % (Auto) 8.0, Eos % (Auto) 1.3, Baso % (Auto) 0.1, Absolute Neuts (auto) 11.9 H, Absolute Lymphs (auto) 1.19, Total Counted Not Reportable 05/15/18 04:05: Sodium 141, Potassium 3.5, Chloride 100, Carbon Dioxide 31.0, Anion Gap 10, BUN 24 H, Creatinine 0.93, Estim Creat Clear Calc 91.55, Est GFR (MDRD) Af Amer 106, Est GFR (MDRD) Non-Af 88, BUN/Creatinine Ratio 25.8 H, Glucose 138 H, Calcium 8.0 L Current Medications Albuterol/Ipratropium (Duoneb) 3 ml INHALATION Q4H.RT PRN PRN Reason: WHEEZING Atorvastatin Calcium (Lipitor) 40 mg PO HS [facility] Last Admin: 05/14/18 22:01 Dose: 40 mg Bisacodyl (Dulcolax) 5 mg PO DAILY PRN PRN PRN Reason: Constipation Chlorhexidine Gluconate () 1 each TOPICAL DAILY ERROL Last Admin: 05/14/18 10:37 Dose: 1 each Docusate Sodium (Colace) 100 mg PO BID [facility] Last Admin: 05/14/18 22:00 Dose: 100 mg Enoxaparin Sodium (Lovenox) 100 mg SC Q12 [facility] Last Admin: 05/14/18 22:01 Dose: 100 mg Fentanyl Citrate (Sublimaze (100mcg Ampule)) 25 mcg IV Q4H PRN PRN Reason: PAIN Last Admin: 05/14/18 20:50 Dose: 25 mcg Meropenem 1 gm/ Sodium (Chloride) 120 mls @ 33 mls/hr IV Q8 [facility] Last Admin: 05/15/18 06:16 Dose: 33 mls/hr Norepinephrine Bitartrate 8 mg (/ Dextrose) 258 mls @ 9.68 mls/hr IV .[id number] [facility] Last Admin: 05/15/18 08:53 Dose: Not Given Magnesium Hydroxide (Milk Of Magnesia) 30 ml PO DAILY PRN PRN Reason: Constipation Magnesium Oxide (Mag-Ox 400) 400 mg PO DAILY [facility] Last Admin: 05/14/18 10:37 Dose: 400 mg Ondansetron HCl (Zofran) 4 mg IV Q6H PRN PRN PRN Reason: Nausea Last Admin: 05/14/18 12:55 Dose: 4 mg Oxycodone HCl (Oxyir) 5 mg PO Q4H PRN PRN PRN Reason: Moderate Pain (pain scale 4-5) Last Admin: 05/15/18 06:16 Dose: 5 mg Potassium Chloride (K-Dur) 10 meq PO DAILY [facility] Last Admin: 05/14/18 10:37 Dose: 10 meq Psyllium Hydrophilic Mucilloid (Metamucil) 1 packet PO DAILY PRN PRN PRN Reason: CONSTIPATION Sodium Chloride () 5 - 15 ml IV UD PRN PRN Reason: SALINE FLUSH Last Admin: 05/14/18 20:50 Dose: 10 ml Sodium Hypochlorite (Dakins Solution 0.25% (1/2 Strength)) 1 applic TOPICAL BID [facility]; Protocol Last Admin: 05/14/18 22:00 Dose: 1 applicatio Warfarin Sodium (Coumadin (Pbkc)) 5 mg PO DAILY@1700 [facility] Last Admin: 05/14/18 17:28 Dose: 5 mg Zolpidem Tartrate (Ambien (Generic)) 5 mg PO QHS PRN PRN PRN Reason: INSOMNIA Last Admin: 05/12/18 21:37 Dose: 5 mg Medical Necessity - Tobacco Use Smoking Status: Current every day smoker Tobacco Use: Cigarettes Assessment/Plan All Active Problems (Last Reviewed 05/04/18 @ 08:39 by Prasanth Pradhan MD) Gross hematuria (Acute) Overweight (Acute) MASOOD (obstructive sleep apnea) (Acute) Colovesical fistula (Acute) Large bowel anastomotic leak (Acute) Sepsis associated hypotension (Acute) 1. Septic shock due to anastomotic leak and intraabdominal abscess patient now off levophed. BP stable s/p exploratory laparotomy with diverting colostomy on IV meropenem general surgery on board 2. LLE DVT: developed after sugery. Coumadin with Lovenox for bridging. INR today is pending. WIll dc lovenox if INR is therapeutic 3. Colovesical fistula s/p colectomy complicated by anastomotic leak and intra-abdominal abscess today is POD 8. Today's postop day 2 of exploratory laparotomy for anastomotic leak with end-colostomy placement. general surgery on board 4. Acute hypoxic respiratory failure currently on 4L of oxygen continue breathing treatments; continue oxygen to maintain sats>92% 5. Gross hematuria: resolved. Maldonado catheter in place. to follow up with urology on outpatient basis 6. Possible gout: foot pain is better.Will monitor 7. CAD and ischemic cardiomyopathy has known EF of 30% has a history of left atrial appendage thrombus. cardiology on board Beta-blockers, Lasix and lisinopril on hold on account of hypotension will resume carvedilol today 8.Hypertension: Carvedilol, lisinopril held on account of hypotension. WIll resume carvedilol today 9. A. fib: Developed RVR which is likely as a result of septic shock. HR now in 120s; will resume carvedilol today. 10. MASOOD: Noncompliant with CPAP. DVT prophylaxis: Coumadin and Lovenox for bridging. INR today is 2.4. Will dc lovenox and continue coumadin. Disposition: transfer to PCU today Code Visit Inpatient E&M: 13546 Subs Hosp L3
--- NOTE | 2018-05-15 09:28 | PN_ITS ---
Patient Problems: Active and Suspected Problems (Last Reviewed 05/04/18 @ 08:39 by Prasanth Pradhan MD) Gross hematuria (Acute) Overweight (Acute) MASOOD (obstructive sleep apnea) (Acute) non-compliant with CPAP Peripheral arterial disease (Suspected) Colovesical fistula (Acute) Large bowel anastomotic leak (Acute) Sepsis associated hypotension (Acute) Subjective: Patient seen and examined. He feels well and has no complaints. He denies any fever or chills, any chest pain, abdominal pain, any diarrhea vomiting. He did admit to some mild palpitations but he had been off his carvedilol on account of hypotension. Labs and vitals reviewed. Patient to be transferred to progressive care unit today. Vitals/I&O's: Vital Signs Temp Pulse Resp BP Pulse Ox 96.6 F L 117 H 16 121/75 H 94 05/15/18 08:00 05/15/18 08:00 05/15/18 08:00 05/15/18 08:00 05/15/18 08:00 Oxygen Flow Rate (L/min) 4 Oxygen Delivery Method Nasal Cannula Weight: 235 lb 10.786 oz Body Mass Index (BMI) 29.9 Intake and Output for Last 24 Hours 05/13/18 05/14/18 05/15/18 23:59 23:59 23:59 Intake Total 1440.8 / 1440.8 2795.2 / 2795.2 801 / 801 Output Total 1575 / 1575 777 / 777 510 / 510 Balance -134.2 / -134.2 / 2017.2 291 / 291 General: Alert, Oriented x3, Cooperative, HEENT: Atraumatic, PERRLA, EOMI, Normocephalic Oral: dry mucosa Neck: Supple, No JVD, Negative Carotid Bruits, Negative Hepatojugular Reflux, No Nodes Lungs: - - decreased breath sounds bibasally; no wheezes or crackles. tachypneic. on 4L of oxygen Cardiovascular: Regular rate, Regular Rhythm, Normal S1, Normal S2, No murmurs Abdomen: Bowel Sounds Present, Soft, - - has diverting colostomy in place; minimal tenderness, abdomen mildly distended Extremities: No clubbing, No cyanosis, No edema, Capillary Refill Less than 3 Seconds Skin: No rashes, No breakdown Musculoskeletal: No Tenderness to Palpation of Joints or Extremities Lymphatic: No Cervical, Supraclavicular, or Inguinal Adenopathy Neurological: Cranial nerves II-XII grossly intact, Neuro grossly intact, Motor Exam 5/5 strength throughout Psych/Mental Status: Normal Affect, Anxious, Alert and oriented to time, place, person, mood and affect Laboratory Results 05/14/18 10:45: Sodium 139, Potassium 3.2 L, Chloride 102, Carbon Dioxide 30.0, Anion Gap 7, BUN 15, Creatinine 1.09, Estim Creat Clear Calc 78.11, Est GFR (MDRD) Af Amer 88, Est GFR (MDRD) Non-Af 73, BUN/Creatinine Ratio 13.8, Glucose 107 H, Calcium 7.7 L, Magnesium 1.9 05/15/18 04:05: WBC 14.6 H, RBC 3.10 L, Hgb 11.3 L, Hct 35.3 L, MCV 113.9 H, MCH 36.5 H, MCHC 32.0, RDW 14.8 H, RDW Differential 61.9 H, Plt Count 404, MPV 11.1, Immature Gran % (Auto) 0.800, Neut % (Auto) 81.7 H, Lymph % (Auto) 8.1 L, [place] % (Auto) 8.0, Eos % (Auto) 1.3, Baso % (Auto) 0.1, Absolute Neuts (auto) 11.9 H, Absolute Lymphs (auto) 1.19, Total Counted Not Reportable 05/15/18 04:05: Sodium 141, Potassium 3.5, Chloride 100, Carbon Dioxide 31.0, Anion Gap 10, BUN 24 H, Creatinine 0.93, Estim Creat Clear Calc 91.55, Est GFR (MDRD) Af Amer 106, Est GFR (MDRD) Non-Af 88, BUN/Creatinine Ratio 25.8 H, Glucose 138 H, Calcium 8.0 L Current Medications Albuterol/Ipratropium (Duoneb) 3 ml INHALATION Q4H.RT PRN PRN Reason: WHEEZING Atorvastatin Calcium (Lipitor) 40 mg PO HS [facility] Last Admin: 05/14/18 22:01 Dose: 40 mg Bisacodyl (Dulcolax) 5 mg PO DAILY PRN PRN PRN Reason: Constipation Chlorhexidine Gluconate () 1 each TOPICAL DAILY ERROL Last Admin: 05/14/18 10:37 Dose: 1 each Docusate Sodium (Colace) 100 mg PO BID [facility] Last Admin: 05/14/18 22:00 Dose: 100 mg Enoxaparin Sodium (Lovenox) 100 mg SC Q12 [facility] Last Admin: 05/14/18 22:01 Dose: 100 mg Fentanyl Citrate (Sublimaze (100mcg Ampule)) 25 mcg IV Q4H PRN PRN Reason: PAIN Last Admin: 05/14/18 20:50 Dose: 25 mcg Meropenem 1 gm/ Sodium (Chloride) 120 mls @ 33 mls/hr IV Q8 [facility] Last Admin: 05/15/18 06:16 Dose: 33 mls/hr Norepinephrine Bitartrate 8 mg (/ Dextrose) 258 mls @ 9.68 mls/hr IV .[id number] [facility] Last Admin: 05/15/18 08:53 Dose: Not Given Magnesium Hydroxide (Milk Of Magnesia) 30 ml PO DAILY PRN PRN Reason: Constipation Magnesium Oxide (Mag-Ox 400) 400 mg PO DAILY [facility] Last Admin: 05/14/18 10:37 Dose: 400 mg Ondansetron HCl (Zofran) 4 mg IV Q6H PRN PRN PRN Reason: Nausea Last Admin: 05/14/18 12:55 Dose: 4 mg Oxycodone HCl (Oxyir) 5 mg PO Q4H PRN PRN PRN Reason: Moderate Pain (pain scale 4-5) Last Admin: 05/15/18 06:16 Dose: 5 mg Potassium Chloride (K-Dur) 10 meq PO DAILY [facility] Last Admin: 05/14/18 10:37 Dose: 10 meq Psyllium Hydrophilic Mucilloid (Metamucil) 1 packet PO DAILY PRN PRN PRN Reason: CONSTIPATION Sodium Chloride () 5 - 15 ml IV UD PRN PRN Reason: SALINE FLUSH Last Admin: 05/14/18 20:50 Dose: 10 ml Sodium Hypochlorite (Dakins Solution 0.25% (1/2 Strength)) 1 applic TOPICAL BID [facility]; Protocol Last Admin: 05/14/18 22:00 Dose: 1 applicatio Warfarin Sodium (Coumadin (Pbkc)) 5 mg PO DAILY@1700 [facility] Last Admin: 05/14/18 17:28 Dose: 5 mg Zolpidem Tartrate (Ambien (Generic)) 5 mg PO QHS PRN PRN PRN Reason: INSOMNIA Last Admin: 05/12/18 21:37 Dose: 5 mg Medical Necessity - Tobacco Use Smoking Status: Current every day smoker Tobacco Use: Cigarettes Assessment/Plan All Active Problems (Last Reviewed 05/04/18 @ 08:39 by Prasanth Pradhan MD) Gross hematuria (Acute) Overweight (Acute) MASOOD (obstructive sleep apnea) (Acute) Colovesical fistula (Acute) Large bowel anastomotic leak (Acute) Sepsis associated hypotension (Acute) 1. Septic shock due to anastomotic leak and intraabdominal abscess * patient now off levophed. BP stable * s/p exploratory laparotomy with diverting colostomy * on IV meropenem * general surgery on board * * 2. LLE DVT: developed after sugery. * Coumadin with Lovenox for bridging. * INR today is pending. WIll dc lovenox if INR is therapeutic * 3. Colovesical fistula s/p colectomy complicated by anastomotic leak and intra- abdominal abscess * today is POD 8. * Today's postop day 2 of exploratory laparotomy for anastomotic leak with end- colostomy placement. * general surgery on board * * 4. Acute hypoxic respiratory failure * currently on 4L of oxygen * continue breathing treatments; continue oxygen to maintain sats>92% * 5. Gross hematuria: resolved. Maldonado catheter in place. to follow up with urology on outpatient basis 6. Possible gout: foot pain is better.Will monitor * 7. CAD and ischemic cardiomyopathy * has known EF of 30% * has a history of left atrial appendage thrombus. cardiology on board * Beta-blockers, Lasix and lisinopril on hold on account of hypotension * will resume carvedilol today * 8.Hypertension: Carvedilol, lisinopril held on account of hypotension. WIll resume carvedilol today 9. A. fib: Developed RVR which is likely as a result of septic shock. HR now in 120s; will resume carvedilol today. 10. MASOOD: Noncompliant with CPAP. DVT prophylaxis: Coumadin and Lovenox for bridging. INR today is 2.4. Will dc lovenox and continue coumadin. Disposition: transfer to PCU today Code Visit Inpatient E&M: 74686 Subs Hosp L3
--- NOTE | 2018-05-15 09:29 | NURSING ---
Colostomy appliance had been changed last pm by production supervisor off shift nurse d/t a large amount of drainage on the flange. there had been a small amount of old bloody drainage yesterday, but minimal. stoma is still edematous. there is some liquid brown stool noted in the colostomy appliance. abdomen is still distended.
--- NOTE | 2018-05-15 10:09 | CASEMGMT ---
SW spoke w/pt in room in regard to discharge plan. Pt is still agreeable to referral to TCU, states is considering this. Dr. Pradhan, pt's surgeon then walked in and spoke w/pt, reiterated to pt that going to TCU is a good idea. Pt states is in agreement with the plan. SW called Alicja in TCU, confirmed bed availability for this pt in TCU. SW explained it's possible for pt to be ready by the end of the week, pt going to PCU today. Alicja can start precert the day before anticipated discharge and she will likely get the precert that next day. SW updated PCU SW via voice mail. JACKIE Fagan, MASTER [employer]
--- NOTE | 2018-05-15 10:36 | PN.SURG_ITS ---
Patient Problems: Active and Suspected Problems (Last Reviewed 05/04/18 @ 08:39 by Prasanth Pradhan MD) Gross hematuria (Acute) Overweight (Acute) MASOOD (obstructive sleep apnea) (Acute) non-compliant with CPAP Peripheral arterial disease (Suspected) Colovesical fistula (Acute) Large bowel anastomotic leak (Acute) Sepsis associated hypotension (Acute) Subjective: Patient is evaluated resting comfortably in bed. Patient notes feeling more tired today. He denies nausea, vomiting. He notes minimal amount of abdominal discomfort. He is having brown liquidy stool output in his ostomy bag. - Physical Exam General: Alert, Oriented x3, Cooperative Lungs: Clear to auscultation, Normal air movement Cardiovascular: Tachycardic Abdomen: Bowel Sounds Present, Distended, Tender - lower pubic region, - - Incision- with retention sutures and jeffrey. Superior aspect of the incision near first retention suture had bright red slow bleeding. Packing was changed and redressed with dampen gauze (6), ABD pads (2) and pressure dressing. RICARDO drain intact. Dressing changed. Serous fluid noted in RICARDO bulb. Vital Signs Temp Pulse Resp BP Pulse Ox 96.6 F L 117 H 16 121/75 H 94 05/15/18 08:00 05/15/18 08:00 05/15/18 08:00 05/15/18 08:00 05/15/18 08:00 Oxygen Flow Rate (L/min) 4 Oxygen Delivery Method Nasal Cannula Weight: 235 lb 10.786 oz Body Mass Index (BMI) 29.9 Intake and Output for Last 24 Hours 05/13/18 05/14/18 05/15/18 23:59 23:59 23:59 Intake Total 1440.8 / 1440.8 2795.2 / 2795.2 801 / 801 Output Total 1575 / 1575 777 / 777 510 / 510 Balance -134.2 / -134.2 2017.2 291 / 291 Laboratory Tests Past 24 Hrs 05/14/18 05/15/18 05/15/18 10:45 04:05 04:05 WBC 14.6 H RBC 3.10 L Hgb 11.3 L Hct 35.3 L MCV 113.9 H MCH 36.5 H MCHC 32.0 RDW 14.8 H RDW Differential 61.9 H Plt Count 404 MPV 11.1 Immature Gran % (Auto) 0.800 Neut % (Auto) 81.7 H Lymph % (Auto) 8.1 L [place] % (Auto) 8.0 Eos % (Auto) 1.3 Baso % (Auto) 0.1 Absolute Neuts (auto) 11.9 H Absolute Lymphs (auto) 1.19 Total Counted Not Reportable Sodium 139 141 Potassium 3.2 L 3.5 Chloride 102 100 Carbon Dioxide 30.0 31.0 Anion Gap 7 10 BUN 15 24 H Creatinine 1.09 0.93 Estim Creat Clear Calc 78.11 91.55 Est GFR (MDRD) Af Amer 88 106 Est GFR (MDRD) Non-Af 73 88 BUN/Creatinine Ratio 13.8 25.8 H Glucose 107 H 138 H Calcium 7.7 L 8.0 L Magnesium 1.9 Medical Necessity - Tobacco Use Smoking Status: Current every day smoker Tobacco Use: Cigarettes Assessment/Plan All Active Problems (Last Reviewed 05/04/18 @ 08:39 by Prasanth Pradhan MD) Gross hematuria (Acute) Overweight (Acute) MASOOD (obstructive sleep apnea) (Acute) Colovesical fistula (Acute) Large bowel anastomotic leak (Acute) Sepsis associated hypotension (Acute) I am following this patient with Dr. Pradhan S/p sigmoid colectomy and cystoscopy for colovesical fistula in conjunction with Eddy 05/07. Anastomotic leak. S/p urgent exploratory laparotomy with end colostomy creation 05/13. Positive for LLE DVT on Lovenox and Coumadin Labs reviewed Encourage ambulation/ sitting in chair He is tolerating clear liquids Discussed patient with Dr. Pradhan We will continue to closely monitor this patient Plan for TCU at discharge ?Possible transfer back to PCU today Code Visit Inpatient E&M: 62761 Subs Hosp L1 - NO CHARGE/POST-OP
[2018-05-15] MEDS: Carvedilol 25 MG Tablet PO ×2 (11:02→21:12)
[2018-05-15] MEDS: Docusate Sodium 100 MG Capsule PO ×2 (11:02→21:12)
[2018-05-15] MEDS: Enoxaparin 100 MG/ML Syringe SC (11:03)
[2018-05-15] MEDS: Magnesium Oxide 400 MG Tablet PO (11:04)
[2018-05-15 12:01] LABS: International Normalized Ratio 2.4; Prothrombin Time (Protime)PT. 26.1 SECONDS (11.7-14.9)
--- NOTE | 2018-05-15 13:40 | NURSING ---
In to reassess the abdominal dressing. patient was just getting back to bed with therapy. pt states I was not able to do much. there is no breakthrough drainage noted to the abdominal dressing. will continue to monitor. pt may possibly be transferred to PCU later today.
[2018-05-15] MEDS: Gabapentin 300 MG Capsule PO ×2 (13:54→17:00)
[2018-05-15] MEDS: 0.9% NaCl Peripheral Flush Adult/Peds IV (13:55)
--- NOTE | 2018-05-15 14:44 | NURSING ---
This RN got report from Dwayne BRICKMASON
[2018-05-15] MEDS: Ondansetron 4 MG/2 ML Vial IV (18:15)
[2018-05-15] MEDS: Atorvastatin Calcium 40 MG Tablet PO (21:12)
[2018-05-16] VITALS (26 sets, daily range): BP systolic 64–114; BP diastolic 39–78; PULSE 84–113; RESP 16–19; TEMP 36.6–36.9; O2SAT 89–93
[2018-05-16] MEDS: Ondansetron 4 MG/2 ML Vial IV (04:56)
[2018-05-16] MEDS: 0.9% NaCl Peripheral Flush Adult/Peds IV ×3 (04:56→05:33)
[2018-05-16 05:54] LABS: Anion Gap 10 (5-15); BUN 34 mg/dL (7-18); BUN/Creat Ratio 29.8 RATIO (10-20); Chloride 96 mmol/L (98-107); Creatinine, Serum 1.14 mg/dL (0.70-1.30); EST Glomerular Filtration Rate 69 mL/min (>60); Est Glom Filt Rate - Afr Amer 84 mL/min (>60); Estimated Creatinine Clearance 74.69 ml/min; Glucose 129 mg/dL (74-106); Potassium 3.6 mmol/L (3.5-5.1); Sodium Level 135 mmol/L (136-145)
[2018-05-16 06:30] LABS: Absolute Neutrophil Count 17.3 X10^3/uL (2.0-7.7); Basophil# 0.03 X10^3/uL; Basophil% 0.2 % (0-1); Eosinophil# 0.16 X10^3/uL; Eosinophils% 0.8 % (0-5); Hematocrit 34.5 % (40-54); Hemoglobin 11.1 g/dl (13.0-16.5); Lymphocyte % 4.1 % (19-41); Mean Corp Hgb Conc 32.2 g/gl (32-36); Mean Corpuscular Hgb 36.3 pg (27.0-32.0); Mean Corpuscular Volume 112.7 fL (80-94); Mean Platelet Vol. 11.6 fl (6.2-12.0); Monocyte# 1.24 X10^3/uL; Monocyte% 6.3 % (0-10); Neutrophil # 17.29 X10^3/uL (2.7-7.7); Neutrophil % 87.9 % (47-70); Platelet Count 457 K/mm3 (150-450); RBC Distribution Width SD 61.7 fl (35.1-43.9); Red Blood Count 3.06 M/mm3 (4.6-6.2); White Blood Count 19.7 K/mm3 (4.4-11.0)
[2018-05-16 06:32] LABS: POSITIVE COUNT NO; POSITIVE DIFFERENTIAL NO; POSITIVE MORPHOLOGY NO
--- NOTE | 2018-05-16 07:05 | PCM.PROGNOTE ---
Patient Problems: Active and Suspected Problems (Last Reviewed 05/04/18 @ 08:39 by Prasanth Pradhan MD) Gross hematuria (Acute) Overweight (Acute) MASOOD (obstructive sleep apnea) (Acute) non-compliant with CPAP Peripheral arterial disease (Suspected) Colovesical fistula (Acute) Large bowel anastomotic leak (Acute) Sepsis associated hypotension (Acute) Subjective: The patient was seen and examined at the bedside this morning. Events from the last 24 hours have been reviewed. The patient is currently afebrile, hemodynamically stable and maintaining appropriate oxygen saturations on 7 L/min via nasal cannula. INR is therapeutic at 2.4. Creatinine is stable. The patient is currently overall net +6.4 L for the admission. The patient has done well clinically following transfer out of the intensive care unit. The patient is resting comfortably in bed this morning. His pain is currently controlled. Although the patient does report a history of MASOOD, he does not currently utilize any form of nocturnal Pap therapy. Objective: The patient's most recent lab work, culture data and imaging studies have all been personally reviewed. Blood cultures remain negative to date. - Physical Exam General: Alert, Oriented x3, Cooperative, No apparent distress HEENT: Atraumatic, PERRLA, Normocephalic Oral: Moist Mucosa, No Gingival or Mucosal Lesions/ Ulcerations Neck: Supple, No Nodes, Trachea Midline, - - Central venous catheter remains in place Lungs: No rhonchi, No wheeze, No rales, Diminished Cardiovascular: Normal S1, Normal S2, No murmurs, Irregular Rate Abdomen: Soft, Distended, - - Ostomy, retention sutures and RICARDO in place Extremities: No clubbing, No cyanosis, Edema Skin: - - No significant change from previous. Musculoskeletal: No Tenderness to Palpation of Joints or Extremities, No Muscle Wasting Lymphatic: No Cervical, Supraclavicular, or Inguinal Adenopathy Neurological: Cranial nerves II-XII grossly intact, Neuro grossly intact Psych/Mental Status: Alert and oriented to time, place, person, mood and affect Vital Signs Temp Pulse Resp BP Pulse Ox 36.7 C 108 H 16 106/78 91 05/16/18 06:33 05/16/18 06:33 05/16/18 06:33 05/16/18 06:33 05/16/18 06:33 Oxygen Flow Rate (L/min) 7 Oxygen Delivery Method Nasal Cannula Weight: 234 lb 12.677 oz Body Mass Index (BMI) 29.9 Intake and Output for Last 24 Hours 05/14/18 05/15/18 05/16/18 23:59 23:59 23:59 Intake Total 2795.2 / 2795.2 1621 / 1621 561 / 561 Output Total 777 / 777 1150 / 1150 660 / 660 Balance 2017.2 471 / 471 -99 / -99 Microbiology Past 72 Hours 05/12/18 17:10 Blood Culture - Preliminary Blood Culture (Wb) - Left Hand No growth in 48 hours. 05/12/18 17:05 Blood Culture - Preliminary Blood Culture (Wb) - Anticubital Left No growth in 48 hours. Laboratory Tests Past 24 Hrs 05/15/18 05/16/18 05/16/18 11:35 05:30 05:30 WBC 19.7 H RBC 3.06 L Hgb 11.1 L Hct 34.5 L MCV 112.7 H MCH 36.3 H MCHC 32.2 RDW 15.0 H RDW Differential 61.7 H Plt Count 457 H MPV 11.6 Immature Gran % (Auto) 0.700 Neut % (Auto) 87.9 H Lymph % (Auto) 4.1 L [place] % (Auto) 6.3 Eos % (Auto) 0.8 Baso % (Auto) 0.2 Absolute Neuts (auto) 17.3 H Absolute Lymphs (auto) 0.80 L Total Counted Not Reportable PT 26.1 H INR 2.4 Sodium 135 L Potassium 3.6 Chloride 96 L Carbon Dioxide 29.0 Anion Gap 10 BUN 34 H Creatinine 1.14 Estim Creat Clear Calc 74.69 Est GFR (MDRD) Af Amer 84 Est GFR (MDRD) Non-Af 69 BUN/Creatinine Ratio 29.8 H Glucose 129 H Calcium 8.0 L Clinical Impression(s) from Imaging Studies Abdomen/Pelvis CT 05/03/18 07:41 IMPRESSION: Large bladder mass as described causing a marked degree of bladder dilatation. Air is seen within the urinary bladder. This may be related to Maldonado catheter manipulation. If not, a colovesical fistula should be ruled out. Electronically Signed: Johnny Neil MD at 9:02 EST , Service support , Chest X-Ray 05/03/18 09:37 IMPRESSION: Mild cardiomegaly. Electronically Signed: Johnny Neil MD at 10:05 EST , Service support , Abdomen/Pelvis CT 05/04/18 07:00 IMPRESSION: Evaluation was performed to evaluate for a colovesical fistula. Please note that a study prior to injection of rectal contrast was not performed. This somewhat limits evaluation. There is hyperdense material in the bladder at time of prior study May 03, 2018 which most likely represented a hematoma. On today's examination again noted is gas as well as hyperdense material within the bladder. There is intimate association with a segment of the sigmoid colon with the urinary bladder. There is a small focus of gas within the bladder at this region. Findings would be concerning for a colovesical fistula. Correlate with urinalysis. Interval placement of a Maldonado catheter. The previously noted bladder hyperdense masslike lesion has significantly decreased in size. Likely representing a large hematoma. Recommend follow-up to ensure resolution. Diverticulosis is present. There is some thickening of the sigmoid colon with some stranding concerning for diverticulitis. Infrarenal abdominal aortic aneurysm. Decreasing right hydronephrosis. Evidence of prior granulomatous disease. Bilateral nephrolithiasis. Electronically Signed: Dawood Morrison, at 7:57 EST Tel , Service support , Chest X-Ray 05/10/18 05:55 IMPRESSION: Atelectasis and/or infiltrates at the lung bases worse on the left side with blunting of left costophrenic angle. Electronically Signed: Johnny Neil MD at 9:43 EST , Service support , Chest X-Ray 05/12/18 16:45 IMPRESSION: 1. Decreased bibasilar atelectasis. No organizing infiltrates seen. 2. Gaseous distention of bowel in the upper abdomen, incompletely visualized. 3. Mild cardiomegaly. Electronically Signed: Tunde Cole MD at 17:03 EST , Service support , Abdomen/Pelvis CT 05/13/18 10:28 IMPRESSION: Small bilateral pleural effusions with bibasilar infiltrates and/or atelectasis. Small amount of perihepatic as well as perisplenic fluid as well as fluid in the pelvis. Small amount of fluid in the Colic gutters. Postoperative changes in the region of the umbilicus there Distention of the ascending colon and transverse colon and descending colon down to the region of the anastomosis at the rectosigmoid junction. A Maldonado catheter seen within the urinary bladder. Electronically Signed: Johnny Neil MD at 13:48 EST , Service support , Chest X-Ray 05/13/18 14:18 IMPRESSION: The tip of the right internal jugular venous catheter is in the proximal portion of the superior vena cava. There is no evidence of pneumothorax. Stable appearance of the lungs. Electronically Signed: Johnny Neil MD at 15:52 EST , Service support , Chest X-Ray 05/13/18 19:24 IMPRESSION: Interval placement endotracheal and enteric tubes as above. at 1955 Reported and signed by: Jason Goins MD Electronically Signed: Jason Goins at 19:54 EST Tel , Service support , Medical Necessity - Tobacco Use Smoking Status: Current every day smoker Tobacco Use: Cigarettes Assessment/Plan All Active Problems (Last Reviewed 05/04/18 @ 08:39 by Prasanth Pradhan MD) Gross hematuria (Acute) Overweight (Acute) MASOOD (obstructive sleep apnea) (Acute) Colovesical fistula (Acute) Large bowel anastomotic leak (Acute) Sepsis associated hypotension (Acute) RECOMMENDATIONS: 1. Continue to wean supplemental oxygen as tolerated to maintain a saturation of 90%. Encourage incentive spirometer use. 2. Continue antibiotics. 3. Continue home beta-bravo regimen for rate control. 4. Check BNP and start Lasix. 5. Continue as needed bronchodilators. 6. Continue fentanyl for pain. 7. Diet advancement per surgery recommendations. 8. Physical therapy to continue to work with patient. 9. Continue Coumadin with plans to check daily INR. IMPRESSIONS: 1. Septic shock with concern for intra-abdominal infectious process due to anastomotic leak Improved. The patient was transferred back to the medical intensive care unit after he became septic once again in the PCU. The patient was taken back to the OR on May 13 due to the presence of an anastomotic leak and underwent exploratory laparotomy with creation of an end colostomy. Postoperatively, the patient did have a transient vasopressor requirement. He has since been weaned from Levophed and has maintained hemodynamic stability. Empiric antibiotics are going to be continued accordingly. 2. Acute respiratory failure Improved. The patient was able to be liberated from mechanical ventilation without issue. He currently has a supplemental oxygen requirement, which will be weaned as tolerated. Encourage incentive spirometer use. Given that the patient has an underlying cardiomyopathy with ejection fraction of 20% and is volume up for the admission, recommend gentle diuresis. 3. Coronary artery disease/chronic systolic heart failure Continue current medical therapy. The patient is on Lasix as an outpatient. We will plan to restart the patient's diuretics today. 4. Paroxysmal atrial fibrillation Continue systemic anticoagulation as ordered. Check daily INR. Continue home beta-bravo regimen. 5. History of obstructive sleep apnea Recommend use of nocturnal noninvasive positive pressure ventilation as tolerated. This note was generated with [employer] dictation software. It may contain incorrect words, spelling, and punctuation that were not noted in checking the note before signing. Code Visit Inpatient E&M: 13616 Subs Hosp L2
--- NOTE | 2018-05-16 07:11 | PN_ITS ---
Patient Problems: Active and Suspected Problems (Last Reviewed 05/04/18 @ 08:39 by Prasanth Pradhan MD) Gross hematuria (Acute) Overweight (Acute) MASOOD (obstructive sleep apnea) (Acute) non-compliant with CPAP Peripheral arterial disease (Suspected) Colovesical fistula (Acute) Large bowel anastomotic leak (Acute) Sepsis associated hypotension (Acute) Subjective: The patient was seen and examined at the bedside this morning. Events from the last 24 hours have been reviewed. The patient is currently afebrile, hemodynamically stable and maintaining appropriate oxygen saturations on 7 L/min via nasal cannula. INR is therapeutic at 2.4. Creatinine is stable. The patient is currently overall net +6.4 L for the admission. The patient has done well clinically following transfer out of the intensive care unit. The patient is resting comfortably in bed this morning. His pain is currently controlled. Although the patient does report a history of MASOOD, he does not currently utilize any form of nocturnal Pap therapy. Objective: The patient's most recent lab work, culture data and imaging studies have all been personally reviewed. Blood cultures remain negative to date. - Physical Exam General: Alert, Oriented x3, Cooperative, No apparent distress HEENT: Atraumatic, PERRLA, Normocephalic Oral: Moist Mucosa, No Gingival or Mucosal Lesions/ Ulcerations Neck: Supple, No Nodes, Trachea Midline, - - Central venous catheter remains in place Lungs: No rhonchi, No wheeze, No rales, Diminished Cardiovascular: Normal S1, Normal S2, No murmurs, Irregular Rate Abdomen: Soft, Distended, - - Ostomy, retention sutures and RICARDO in place Extremities: No clubbing, No cyanosis, Edema Skin: - - No significant change from previous. Musculoskeletal: No Tenderness to Palpation of Joints or Extremities, No Muscle Wasting Lymphatic: No Cervical, Supraclavicular, or Inguinal Adenopathy Neurological: Cranial nerves II-XII grossly intact, Neuro grossly intact Psych/Mental Status: Alert and oriented to time, place, person, mood and affect Vital Signs Temp Pulse Resp BP Pulse Ox 36.7 C 108 H 16 106/78 91 05/16/18 06:33 05/16/18 06:33 05/16/18 06:33 05/16/18 06:33 05/16/18 06:33 Oxygen Flow Rate (L/min) 7 Oxygen Delivery Method Nasal Cannula Weight: 234 lb 12.677 oz Body Mass Index (BMI) 29.9 Intake and Output for Last 24 Hours 05/14/18 05/15/18 05/16/18 23:59 23:59 23:59 Intake Total 2795.2 / 2795.2 1621 / 1621 561 / 561 Output Total 777 / 777 1150 / 1150 660 / 660 Balance 2017.2 471 / 471 -99 / -99 Microbiology Past 72 Hours 05/12/18 17:10 Blood Culture - Preliminary Blood Culture (Wb) - Left Hand No growth in 48 hours. 05/12/18 17:05 Blood Culture - Preliminary Blood Culture (Wb) - Anticubital Left No growth in 48 hours. Laboratory Tests Past 24 Hrs 05/15/18 05/16/18 05/16/18 11:35 05:30 05:30 WBC 19.7 H RBC 3.06 L Hgb 11.1 L Hct 34.5 L MCV 112.7 H MCH 36.3 H MCHC 32.2 RDW 15.0 H RDW Differential 61.7 H Plt Count 457 H MPV 11.6 Immature Gran % (Auto) 0.700 Neut % (Auto) 87.9 H Lymph % (Auto) 4.1 L [place] % (Auto) 6.3 Eos % (Auto) 0.8 Baso % (Auto) 0.2 Absolute Neuts (auto) 17.3 H Absolute Lymphs (auto) 0.80 L Total Counted Not Reportable PT 26.1 H INR 2.4 Sodium 135 L Potassium 3.6 Chloride 96 L Carbon Dioxide 29.0 Anion Gap 10 BUN 34 H Creatinine 1.14 Estim Creat Clear Calc 74.69 Est GFR (MDRD) Af Amer 84 Est GFR (MDRD) Non-Af 69 BUN/Creatinine Ratio 29.8 H Glucose 129 H Calcium 8.0 L Clinical Impression(s) from Imaging Studies Abdomen/Pelvis CT 05/03/18 07:41 IMPRESSION: Large bladder mass as described causing a marked degree of bladder dilatation. Air is seen within the urinary bladder. This may be related to Maldonado catheter manipulation. If not, a colovesical fistula should be ruled out. Electronically Signed: Johnny Neil MD at 9:02 EST , Service support , Chest X-Ray 05/03/18 09:37 IMPRESSION: Mild cardiomegaly. Electronically Signed: Johnny Neil MD at 10:05 EST , Service support , Abdomen/Pelvis CT 05/04/18 07:00 IMPRESSION: Evaluation was performed to evaluate for a colovesical fistula. Please note that a study prior to injection of rectal contrast was not performed. This somewhat limits evaluation. There is hyperdense material in the bladder at time of prior study May 03, 2018 which most likely represented a hematoma. On today's examination again noted is gas as well as hyperdense material within the bladder. There is intimate association with a segment of the sigmoid colon with the urinary bladder. There is a small focus of gas within the bladder at this region. Findings would be concerning for a colovesical fistula. Correlate with urinalysis. Interval placement of a Maldonado catheter. The previously noted bladder hyperdense masslike lesion has significantly decreased in size. Likely representing a large hematoma. Recommend follow-up to ensure resolution. Diverticulosis is present. There is some thickening of the sigmoid colon with some stranding concerning for diverticulitis. Infrarenal abdominal aortic aneurysm. Decreasing right hydronephrosis. Evidence of prior granulomatous disease. Bilateral nephrolithiasis. Electronically Signed: Dawood Morrison, at 7:57 EST Tel , Service support , Chest X-Ray 05/10/18 05:55 IMPRESSION: Atelectasis and/or infiltrates at the lung bases worse on the left side with blunting of left costophrenic angle. Electronically Signed: Johnny Neil MD at 9:43 EST , Service support , Chest X-Ray 05/12/18 16:45 IMPRESSION: 1. Decreased bibasilar atelectasis. No organizing infiltrates seen. 2. Gaseous distention of bowel in the upper abdomen, incompletely visualized. 3. Mild cardiomegaly. Electronically Signed: Tunde Cole MD at 17:03 EST , Service support , Abdomen/Pelvis CT 05/13/18 10:28 IMPRESSION: Small bilateral pleural effusions with bibasilar infiltrates and/or atelectasis. Small amount of perihepatic as well as perisplenic fluid as well as fluid in the pelvis. Small amount of fluid in the Col[place] gutters. Postoperative changes in the region of the umbilicus there Distention of the ascending colon and transverse colon and descending colon down to the region of the anastomosis at the rectosigmoid junction. A Maldonado catheter seen within the urinary bladder. Electronically Signed: Johnny Neil MD at 13:48 EST , Service support , Chest X-Ray 05/13/18 14:18 IMPRESSION: The tip of the right internal jugular venous catheter is in the proximal portion of the superior vena cava. There is no evidence of pneumothorax. Stable appearance of the lungs. Electronically Signed: Johnny Neil MD at 15:52 EST , Service support , Chest X-Ray 05/13/18 19:24 IMPRESSION: Interval placement endotracheal and enteric tubes as above. at 1954 Reported and signed by: Jason Goins MD Electronically Signed: Jason Goins at 19:54 EST Tel , Service support , Medical Necessity - Tobacco Use Smoking Status: Current every day smoker Tobacco Use: Cigarettes Assessment/Plan All Active Problems (Last Reviewed 05/04/18 @ 08:39 by Prasanth Pradhan MD) Gross hematuria (Acute) Overweight (Acute) MASOOD (obstructive sleep apnea) (Acute) Colovesical fistula (Acute) Large bowel anastomotic leak (Acute) Sepsis associated hypotension (Acute) RECOMMENDATIONS: 1. Continue to wean supplemental oxygen as tolerated to maintain a saturation of 90%. Encourage incentive spirometer use. 2. Continue antibiotics. 3. Continue home beta-bravo regimen for rate control. 4. Check BNP and start Lasix. 5. Continue as needed bronchodilators. 6. Continue fentanyl for pain. 7. Diet advancement per surgery recommendations. 8. Physical therapy to continue to work with patient. 9. Continue Coumadin with plans to check daily INR. IMPRESSIONS: 1. Septic shock with concern for intra-abdominal infectious process due to anastomotic leak Improved. The patient was transferred back to the medical intensive care unit after he became septic once again in the PCU. The patient was taken back to the OR on May 13 due to the presence of an anastomotic leak and underwent exploratory laparotomy with creation of an end colostomy. Postoperatively, the patient did have a transient vasopressor requirement. He has since been weaned from Levophed and has maintained hemodynamic stability. Empiric antibiotics are going to be continued accordingly. 2. Acute respiratory failure Improved. The patient was able to be liberated from mechanical ventilation without issue. He currently has a supplemental oxygen requirement, which will be weaned as tolerated. Encourage incentive spirometer use. Given that the patient has an underlying cardiomyopathy with ejection fraction of 20% and is volume up for the admission, recommend gentle diuresis. 3. Coronary artery disease/chronic systolic heart failure Continue current medical therapy. The patient is on Lasix as an outpatient. We will plan to restart the patient's diuretics today. 4. Paroxysmal atrial fibrillation Continue systemic anticoagulation as ordered. Check daily INR. Continue home beta-bravo regimen. 5. History of obstructive sleep apnea Recommend use of nocturnal noninvasive positive pressure ventilation as tolerated. This note was generated with myJamb[employer] dictation software. It may contain incorrect words, spelling, and punctuation that were not noted in checking the note before signing. Code Visit Inpatient E&M: 22978 Subs Hosp L2
--- NOTE | 2018-05-16 08:47 | PN_ITS ---
Patient Problems: Active and Suspected Problems (Last Reviewed 05/04/18 @ 08:39 by Prasanth Pradhan MD) Gross hematuria (Acute) Overweight (Acute) MASOOD (obstructive sleep apnea) (Acute) non-compliant with CPAP Peripheral arterial disease (Suspected) Colovesical fistula (Acute) Large bowel anastomotic leak (Acute) Sepsis associated hypotension (Acute) Subjective: Abdomen is distended. Colostomy bag contains bilious liquid and gas. No fever or chills. Patient had an intra-abdominal infection status post repair of colovesical fistula that complicated into anastomotic leak, converted to colostomy on 05/13. Patient is afebrile. Mild tachycardia, heart rate in 100s. Patient is hypoxic, on 8 L of oxygen. He was on 4-5 L of oxygen yesterday Vitals/I&O's: Vital Signs Temp Pulse Resp BP Pulse Ox 97.9 F 109 H 16 112/64 90 05/16/18 07:40 05/16/18 07:40 05/16/18 07:40 05/16/18 07:40 05/16/18 07:40 Oxygen Flow Rate (L/min) 8 Oxygen Delivery Method Nasal Cannula Weight: 234 lb 12.677 oz Body Mass Index (BMI) 29.9 Intake and Output for Last 24 Hours 05/14/18 05/15/18 05/16/18 23:59 23:59 23:59 Intake Total 2795.2 / 2795.2 1621 / 1621 561 / 561 Output Total 777 / 777 1150 / 1150 660 / 660 Balance 2017.2 471 / 471 -99 / -99 General: Alert, Oriented x3, Cooperative HEENT: Atraumatic, PERRLA, EOMI, Normocephalic Neck: Supple, No JVD, Negative Carotid Bruits Lungs: No rhonchi, No wheeze, No rales, Diminished - Air entry is diminished mainly in bilateral lung bases probably from abdominal distention with diaphragm pushed up Cardiovascular: Normal S1, Normal S2, No murmurs, Irregular Rate, Tachycardic Abdomen: Bowel Sounds Present, Soft, Non Tender Extremities: No edema, Capillary Refill Less than 3 Seconds Skin: No rashes, No breakdown Musculoskeletal: No Tenderness to Palpation of Joints or Extremities, Arthritic Changes, Muscle Wasting Neurological: Cranial nerves II-XII grossly intact, Deep Tendon Reflexes 2+/4 and Symmetrical, Neuro grossly intact Psych/Mental Status: Normal Affect, Appropriate, Anxious Microbiology Past 72 Hours 05/12/18 17:10 Blood Culture (Wb) - Left Hand Blood Culture - Preliminary No growth in 48 hours. 05/12/18 17:05 Blood Culture (Wb) - Anticubital Left Blood Culture - Preliminary No growth in 48 hours. Laboratory Results 05/15/18 11:35: PT 26.1 H, INR 2.4 05/16/18 05:30: WBC 19.7 H, RBC 3.06 L, Hgb 11.1 L, Hct 34.5 L, MCV 112.7 H, MCH 36.3 H, MCHC 32.2, RDW 15.0 H, RDW Differential 61.7 H, Plt Count 457 H, MPV 11.6, Immature Gran % (Auto) 0.700, Neut % (Auto) 87.9 H, Lymph % (Auto) 4.1 L, [place] % (Auto) 6.3, Eos % (Auto) 0.8, Baso % (Auto) 0.2, Absolute Neuts (auto) 17.3 H, Absolute Lymphs (auto) 0.80 L, Total Counted Not Reportable 05/16/18 05:30: Sodium 135 L, Potassium 3.6, Chloride 96 L, Carbon Dioxide 29.0, Anion Gap 10, BUN 34 H, Creatinine 1.14, Estim Creat Clear Calc 74.69, Est GFR (MDRD) Af Amer 84, Est GFR (MDRD) Non-Af 69, BUN/Creatinine Ratio 29.8 H, Glucose 129 H, Calcium 8.0 L 05/16/18 05:30: B-Natriuretic Peptide Pending Current Medications Albuterol/Ipratropium (Duoneb) 3 ml INHALATION Q4H.RT PRN PRN Reason: WHEEZING Atorvastatin Calcium (Lipitor) 40 mg PO HS COUNTS INCLUDE 234 BEDS AT THE [facility] Last Admin: 05/15/18 21:12 Dose: 40 mg Bisacodyl (Dulcolax) 5 mg PO DAILY PRN PRN PRN Reason: Constipation Carvedilol (Coreg) 25 mg PO BID COUNTS INCLUDE 234 BEDS AT THE [facility] Last Admin: 05/15/18 21:12 Dose: 25 mg Docusate Sodium (Colace) 100 mg PO BID COUNTS INCLUDE 234 BEDS AT THE [facility] Last Admin: 05/15/18 21:12 Dose: 100 mg Fentanyl Citrate (Sublimaze (100mcg Ampule)) 25 mcg IV Q4H PRN PRN Reason: PAIN Last Admin: 05/14/18 20:50 Dose: 25 mcg Furosemide (Lasix) 20 mg IV BID@1000,1800 ERROL Gabapentin (Neurontin) 300 mg PO TIDCM COUNTS INCLUDE 234 BEDS AT THE [facility] Last Admin: 05/15/18 17:00 Dose: 300 mg Meropenem 1 gm/ Sodium (Chloride) 120 mls @ 33 mls/hr IV Q8 COUNTS INCLUDE 234 BEDS AT THE [facility] Last Admin: 05/16/18 05:00 Dose: 33 mls/hr Magnesium Hydroxide (Milk Of Magnesia) 30 ml PO DAILY PRN PRN Reason: Constipation Magnesium Oxide (Mag-Ox 400) 400 mg PO DAILY COUNTS INCLUDE 234 BEDS AT THE [facility] Last Admin: 05/15/18 11:04 Dose: 400 mg Nutritional Formula (Lactose Free) (Ensure Clear) 120 ml PO TIDCM COUNTS INCLUDE 234 BEDS AT THE [facility] Last Admin: 05/16/18 08:02 Dose: Not Given Ondansetron HCl (Zofran) 4 mg IV Q6H PRN PRN PRN Reason: Nausea Last Admin: 05/16/18 04:56 Dose: 4 mg Oxycodone HCl (Oxyir) 5 mg PO Q4H PRN PRN PRN Reason: Moderate Pain (pain scale 4-5) Last Admin: 05/15/18 20:27 Dose: 5 mg Potassium Chloride (K-Dur) 10 meq PO DAILY COUNTS INCLUDE 234 BEDS AT THE [facility] Last Admin: 05/15/18 11:03 Dose: 10 meq Psyllium Hydrophilic Mucilloid (Metamucil) 1 packet PO DAILY PRN PRN PRN Reason: CONSTIPATION Sodium Chloride () 5 - 15 ml IV UD PRN PRN Reason: SALINE FLUSH Last Admin: 05/16/18 05:33 Dose: 10 ml Sodium Hypochlorite (Dakins Solution 0.25% (1/2 Strength)) 1 applic TOPICAL BID COUNTS INCLUDE 234 BEDS AT THE [facility]; Protocol Last Admin: 05/15/18 23:27 Dose: 1 applicatio Warfarin Sodium (Coumadin (Pbkc)) 5 mg PO DAILY@1700 COUNTS INCLUDE 234 BEDS AT THE [facility] Last Admin: 05/15/18 17:00 Dose: 5 mg Zolpidem Tartrate (Ambien (Generic)) 5 mg PO QHS PRN PRN PRN Reason: INSOMNIA Last Admin: 05/12/18 21:37 Dose: 5 mg Medical Necessity - Tobacco Use Smoking Status: Current every day smoker Tobacco Use: Cigarettes Assessment/Plan All Active Problems (Last Reviewed 05/04/18 @ 08:39 by Prasanth Pradhan MD) Gross hematuria (Acute) Overweight (Acute) MASOOD (obstructive sleep apnea) (Acute) Colovesical fistula (Acute) Large bowel anastomotic leak (Acute) Sepsis associated hypotension (Acute) 62-year-old male with past medical history of hypertension, CAD, dilated cardiomyopathy, EF 30%, nicotine dependence who was admitted on 05/02/18 with hematuria. Further workup for hematuria including cystoscopy revealed large bladder stone for which cystolitholaplaxy, extraction of blood clots and stone fragments was done. Colovesical fistula was also found in cystoscopy for which CT abdomen with contrast was done. Later on patient had colectomy for col ovesical fistula. 1. Septic shock due to anastomotic leak and intraabdominal abscess * patient now off levophed. BP stable * s/p exploratory laparotomy with diverting colostomy * on IV meropenem * general surgery on board 2. LLE DVT: developed after sugery. * Coumadin with Lovenox for bridging. * INR is 2.4 3. Colovesical fistula s/p colectomy complicated by anastomotic leak and intra- abdominal abscess * today is POD 8. * Today's postop day 2 of exploratory laparotomy for anastomotic leak with end- colostomy placement. * general surgery on board 4. Acute hypoxic respiratory failure * currently on 4L of oxygen * continue breathing treatments; continue oxygen to maintain sats>92% 5. Gross hematuria: resolved. Maldonado catheter in place. to follow up with urology on outpatient basis 6. Possible gout: foot pain is better.Will monitor * 7. CAD and ischemic cardiomyopathy * has known EF of 30% * has a history of left atrial appendage thrombus. cardiology on board * Beta-blockers, Lasix and lisinopril on hold on account of hypotension * will resume carvedilol today * 8.Hypertension: Carvedilol, lisinopril held on account of hypotension. WIll resume carvedilol today 9. A. fib: Developed RVR which is likely as a result of septic shock. HR now in 120s; will resume carvedilol today. 10. MASOOD: Noncompliant with CPAP. DVT prophylaxis: Coumadin and Lovenox for bridging. INR today is 2.4. Will dc lovenox and continue coumadin. Code Visit Inpatient E&M: 36742 Subs Hosp L3
--- NOTE | 2018-05-16 08:48 | CASEMGMT ---
JASON spoke with physician and he said pre-cert could be started. JASON spoke with Alicja in TCU and let her know. Riana MANCINI MSW
[2018-05-16] MEDS: Magnesium Oxide 400 MG Tablet PO (09:36)
[2018-05-16] MEDS: Docusate Sodium 100 MG Capsule PO ×2 (09:37→21:40)
[2018-05-16] MEDS: Carvedilol 25 MG Tablet PO (09:37)
[2018-05-16] MEDS: Gabapentin 300 MG Capsule PO ×3 (09:37→17:48)
[2018-05-16] MEDS: Furosemide 20 MG/2 ML VIAL IV (09:38)
--- NOTE | 2018-05-16 09:45 | RAD_ITS ---
STUDY: X-RAY CHEST REASON FOR EXAM: Male, 62 years old. Shortness of breath. Abdominal pain and distention. History of multiple recent surgeries. TECHNIQUE: Single AP portable view of the chest. COMPARISON: Comparison is made with prior study dated May 13, 2018. FINDINGS: A right-sided internal jugular venous catheter is seen with the tip at the junction of the superior vena cava and right atrium. There is evidence of free intraperitoneal air. Increased markings at the lung bases suggestive of bibasilar atelectasis. There is moderate cardiac enlargement. Normal mediastinum and alec. Normal visualized pulmonary arteries. There is atherosclerotic tortuosity of the aortic arch and descending thoracic aorta. There are diffuse degenerative changes of the visualized thoracic spine. Normal visualized ribs, clavicles, and shoulders. Gaseous distention of the colon. RAD/Chest 1 View (Portable) IMPRESSION: Mild degree of increased markings at the lung bases. Free intraperitoneal air with the dilatation of the colon. Electronically Signed: Johnny Neil, at 14:24 EST , Service support ,
[2018-05-16] MEDS: oxyCODONE 5 MG Tablet PO (10:03)
--- NOTE | 2018-05-16 10:10 | PCM.PN.SRG ---
Patient Problems: Active and Suspected Problems (Last Reviewed 05/04/18 @ 08:39 by Prasanth Pradhan MD) Gross hematuria (Acute) Overweight (Acute) MASOOD (obstructive sleep apnea) (Acute) non-compliant with CPAP Peripheral arterial disease (Suspected) Colovesical fistula (Acute) Large bowel anastomotic leak (Acute) Sepsis associated hypotension (Acute) Subjective: Patient was evaluated this morning resting comfortably in bed. He notes nausea. He denies vomiting. He has air in his stoma bag and liquid stool. He notes feeling thirsty. He has been working with physical therapy to regain strength. - Physical Exam General: Alert, Oriented x3, Cooperative Lungs: Diminished - bilaterally Cardiovascular: Tachycardic Abdomen: Non Tender, Hypoactive Bowel Sounds - tinkles of bowel sounds noted, Distended - moderately distended, - - Incision with minimal amount of oozing at the top retention suture. No erythema noted. Dressing was changed and ostomy changed. Vital Signs Temp Pulse Resp BP Pulse Ox 98.1 F 108 H 18 109/68 89 05/16/18 09:34 05/16/18 09:34 05/16/18 09:34 05/16/18 09:34 05/16/18 09:34 Oxygen Flow Rate (L/min) 8 Oxygen Delivery Method Nasal Cannula Weight: 234 lb 12.677 oz Body Mass Index (BMI) 29.9 Intake and Output for Last 24 Hours 05/14/18 05/15/18 05/16/18 23:59 23:59 23:59 Intake Total 2795.2 / 2795.2 1621 / 1621 561 / 561 Output Total 777 / 777 1150 / 1150 660 / 660 Balance 2017.2 471 / 471 -99 / -99 Microbiology Past 72 Hours 05/12/18 17:10 Blood Culture - Preliminary Blood Culture (Wb) - Left Hand No growth in 48 hours. 05/12/18 17:05 Blood Culture - Preliminary Blood Culture (Wb) - Anticubital Left No growth in 48 hours. Laboratory Tests Past 24 Hrs 05/15/18 05/16/18 05/16/18 11:35 05:30 05:30 WBC 19.7 H RBC 3.06 L Hgb 11.1 L Hct 34.5 L MCV 112.7 H MCH 36.3 H MCHC 32.2 RDW 15.0 H RDW Differential 61.7 H Plt Count 457 H MPV 11.6 Immature Gran % (Auto) 0.700 Neut % (Auto) 87.9 H Lymph % (Auto) 4.1 L [place] % (Auto) 6.3 Eos % (Auto) 0.8 Baso % (Auto) 0.2 Absolute Neuts (auto) 17.3 H Absolute Lymphs (auto) 0.80 L Total Counted Not Reportable PT 26.1 H INR 2.4 Sodium 135 L Potassium 3.6 Chloride 96 L Carbon Dioxide 29.0 Anion Gap 10 BUN 34 H Creatinine 1.14 Estim Creat Clear Calc 74.69 Est GFR (MDRD) Af Amer 84 Est GFR (MDRD) Non-Af 69 BUN/Creatinine Ratio 29.8 H Glucose 129 H Calcium 8.0 L B-Natriuretic Peptide 05/16/18 05:30 WBC RBC Hgb Hct MCV MCH MCHC RDW RDW Differential Plt Count MPV Immature Gran % (Auto) Neut % (Auto) Lymph % (Auto) [place] % (Auto) Eos % (Auto) Baso % (Auto) Absolute Neuts (auto) Absolute Lymphs (auto) Total Counted PT INR Sodium Potassium Chloride Carbon Dioxide Anion Gap BUN Creatinine Estim Creat Clear Calc Est GFR (MDRD) Af Amer Est GFR (MDRD) Non-Af BUN/Creatinine Ratio Glucose Calcium B-Natriuretic Peptide Pending Medical Necessity - Tobacco Use Smoking Status: Current every day smoker Tobacco Use: Cigarettes Assessment/Plan All Active Problems (Last Reviewed 05/04/18 @ 08:39 by Prasanth Pradhan MD) Gross hematuria (Acute) Overweight (Acute) MASOOD (obstructive sleep apnea) (Acute) Colovesical fistula (Acute) Large bowel anastomotic leak (Acute) Sepsis associated hypotension (Acute) I am following this patient with Dr. Pradhan S/p sigmoid colectomy and cystoscopy for colovesical fistula in conjunction with Eddy 05/07. Anastomotic leak. S/p urgent exploratory laparotomy with end colostomy creation 05/13. Positive for LLE DVT on Lovenox and Coumadin Labs reviewed.WBC elevated Encourage ambulation/ sitting in chair Continue clear liquids Discussed patient with Dr. Pradhan We will continue to closely monitor this patient Plan for TCU at discharge Code Visit Inpatient E&M: 61373 Subs Hosp L1 - POST-OP/NO CHARGE
[2018-05-16 11:22] LABS: BNP,B-Type NATRIURETIC PEPTIDE 49.9 pg/mL (0-100)
--- NOTE | 2018-05-16 11:31 | CASEMGMT ---
JASON spoke with patient regarding disability per his request. JASON gave him a print out from Social Security website explained how to apply and what he would need. He thanked JASON for the information. Riana NGUYEN
--- NOTE | 2018-05-16 12:56 | NURSING ---
wound photo: abdomen
--- NOTE | 2018-05-16 12:57 | NURSING ---
stoma photo: left lower abdomen
--- NOTE | 2018-05-16 13:28 | NURSING ---
Has been in to assess abdominal wound and stoma with JAVY Goldberg. see wound intervention and wound photos. the colostomy appliance was changed d/t a moderate amount of bloody drainage on the flange. there was some clotted blood from the 2nd retention sutures and some clotted blood around the stoma. peristomal skin was intact. stoma is still quite edematous. measures approx 2 1/4. cleansed the peristomal skin with warm water. pat dry. applied the 2 piece flat Fowler appliance with a small amount of stoma paste. pt tolerated well. patient had a small amount of liquid brown stool and some flatus in the appliance.
[2018-05-16] MEDS: Atorvastatin Calcium 40 MG Tablet PO (21:40)
[2018-05-17] VITALS (57 sets, daily range): BP systolic 56–118; BP diastolic 35–73; PULSE 74–116; RESP 16–28; TEMP 36.2–37.1; O2SAT 83–98
[2018-05-17] MEDS: 0.9% NaCl Peripheral Flush Adult/Peds IV ×2 (05:17→05:18)
[2018-05-17 05:43] LABS: Anion Gap 10 (5-15); BUN 44 mg/dL (7-18); BUN/Creat Ratio 20.5 RATIO (10-20); Calcium,Total 7.6 mg/dL (8.5-10.1); Chloride 93 mmol/L (98-107); Creatinine, Serum 2.15 mg/dL (0.70-1.30); EST Glomerular Filtration Rate 33 mL/min (>60); Est Glom Filt Rate - Afr Amer 40 mL/min (>60); Glucose 107 mg/dL (74-106); Potassium 3.9 mmol/L (3.5-5.1); Sodium Level 131 mmol/L (136-145)
[2018-05-17 06:00] LABS: Absolute Lymphocyte Count 0.99 X10^3/ul (0.83-4.51); Absolute Neutrophil Count 20.9 X10^3/uL (2.0-7.7); Basophil# 0.04 X10^3/uL; Basophil% 0.2 % (0-1); Eosinophils% 0.4 % (0-5); Hematocrit 30.5 % (40-54); Hemoglobin 10.3 g/dl (13.0-16.5); Lymphocyte # 0.99 X10^3/ul (4.0); Lymphocyte % 4.2 % (19-41); Mean Corp Hgb Conc 33.8 g/gl (32-36); Mean Corpuscular Hgb 36.7 pg (27.0-32.0); Mean Corpuscular Volume 108.5 fL (80-94); Mean Platelet Vol. 11.7 fl (6.2-12.0); Monocyte# 1.52 X10^3/uL; Monocyte% 6.4 % (0-10); Neutrophil # 20.85 X10^3/uL (2.7-7.7); Neutrophil % 87.6 % (47-70); Platelet Count 432 K/mm3 (150-450); RBC Distribution Width CV 15.2 % (11.6-14.6); RBC Distribution Width SD 59.8 fl (35.1-43.9); Red Blood Count 2.81 M/mm3 (4.6-6.2); White Blood Count 23.8 K/mm3 (4.4-11.0)
[2018-05-17 06:01] LABS: Differential Indicated SCAN CRITERIA MET; POSITIVE COUNT NO; POSITIVE DIFFERENTIAL YES; POSITIVE MORPHOLOGY YES
--- NOTE | 2018-05-17 07:14 | PCM.PROGNOTE ---
Patient Problems: Active and Suspected Problems (Last Reviewed 05/04/18 @ 08:39 by Prasanth Pradhan MD) Gross hematuria (Acute) Overweight (Acute) MASOOD (obstructive sleep apnea) (Acute) non-compliant with CPAP Peripheral arterial disease (Suspected) Colovesical fistula (Acute) Large bowel anastomotic leak (Acute) Sepsis associated hypotension (Acute) Perforated abdominal viscus (Acute) Perforated viscus (Acute) Subjective: The patient was seen and examined at the bedside this morning. Events from the last 24 hours have been reviewed. The patient is currently afebrile and maintaining oxygen saturations on 8 L/min via nasal cannula. The patient did receive a one-time dose of IV Lasix 20 mg yesterday. In addition, he has been continued on his home beta blockade regimen. Overnight, the patient's hemodynamics have been tenuous. His white blood cell count is steadily increasing and is currently 24,000 this morning. He is currently documented to be overall net +7.1 L for the admission. Orders for a 500 cc saline bolus were placed this morning along with repeat blood cultures. Orders for the patient's beta-bravo were also discontinued. Despite being bolused with supplemental IV fluids, the patient remained hypotensive with increasing oxygen requirements. Therefore, the decision was made to transfer the patient back to the medical intensive care unit. Following his arrival back in the ICU, he was started on both vasopressin and Levophed. This was done in an attempt to minimize the amount of Levophed required to maintain hemodynamic stability, given the patient's atrial fibrillation with rapid ventricular rate. Serum lactate was noted to be within normal limits. Arterial Line Insertion: A time-out was completed verifying correct patient, procedure, site, positioning, and special equipment if applicable. Rod?s test was performed to ensure adequate perfusion. The patient?s right wrist was prepped and draped in sterile fashion. 1% Lidocaine was used to anesthetize the area. An 18G Arrow arterial line was introduced into the radial artery. The catheter was threaded over the guide wire and the needle was removed with appropriate pulsatile blood return. The catheter was then sutured in place to the skin and a sterile dressing applied. Perfusion to the extremity distal to the point of catheter insertion was checked and found to be adequate. ULTRASOUND GUIDANCE STATEMENT (Vascular Access): I performed ultrasound image acquisition and interpretation for needle placement during this procedure. The vessel was identified and was found to be free of thrombosis by compression technique. A safe point of entry was marked at the skin and an angle for access was determined. The needle was guided by obtaining free flowing fluid and by real time visualization. Objective: The patient's most recent lab work, culture data and imaging studies have all been personally reviewed. Initial blood cultures dated May 12 have shown no growth to date. - Physical Exam General: Alert, Oriented x3, Cooperative, No apparent distress HEENT: Atraumatic, PERRLA, Normocephalic Oral: No Gingival or Mucosal Lesions/ Ulcerations Neck: Supple, No Nodes, Trachea Midline, - - Central venous catheter remains in place. Lungs: No rhonchi, No wheeze, No rales, Diminished Cardiovascular: Normal S1, Normal S2, Irregular Rate, Tachycardic Abdomen: Soft, Distended, - - Retention sutures, ostomy and RICARDO in place. Extremities: No clubbing, No cyanosis Skin: - - No significant change from previous Musculoskeletal: No Tenderness to Palpation of Joints or Extremities Lymphatic: No Cervical, Supraclavicular, or Inguinal Adenopathy Neurological: Cranial nerves II-XII grossly intact, Neuro grossly intact Psych/Mental Status: Normal Affect, Appropriate Vital Signs Temp Pulse Resp BP Pulse Ox 36.3 C L 94 18 77/48 L 90 05/17/18 06:30 05/17/18 06:30 05/17/18 06:30 05/17/18 06:30 05/17/18 06:30 Oxygen Flow Rate (L/min) 8 Oxygen Delivery Method Nasal Cannula Weight: 243 lb 2.718 oz Body Mass Index (BMI) 29.9 Intake and Output for Last 24 Hours 05/15/18 05/16/18 05/17/18 23:59 23:59 23:59 Intake Total 1621 / 1621 1985 / 1985 345 / 345 Output Total 1150 / 1150 1550 / 1550 210 / 210 Balance 471 / 471 436 / 436 135 / 135 Microbiology Past 72 Hours 05/12/18 17:10 Blood Culture - Preliminary Blood Culture (Wb) - Left Hand No growth in 48 hours. 05/12/18 17:05 Blood Culture - Preliminary Blood Culture (Wb) - Anticubital Left No growth in 48 hours. Laboratory Tests Past 24 Hrs 05/16/18 05/17/18 05/17/18 05:30 05:15 05:15 WBC 23.8 H RBC 2.81 L Hgb 10.3 L Hct 30.5 L MCV 108.5 H MCH 36.7 H MCHC 33.8 RDW 15.2 H RDW Differential 59.8 H Plt Count 432 MPV 11.7 Immature Gran % (Auto) 1.200 H Neut % (Auto) 87.6 H Lymph % (Auto) 4.2 L [place] % (Auto) 6.4 Eos % (Auto) 0.4 Baso % (Auto) 0.2 Absolute Neuts (auto) 20.9 H Absolute Lymphs (auto) 0.99 Total Counted Not Reportable Diff Path Review May foll Sodium 131 L Potassium 3.9 Chloride 93 L Carbon Dioxide 28.0 Anion Gap 10 BUN 44 H Creatinine 2.15 H Estim Creat Clear Calc 39.60 Est GFR (MDRD) Af Amer 40 L Est GFR (MDRD) Non-Af 33 L BUN/Creatinine Ratio 20.5 H Glucose 107 H Calcium 7.6 L B-Natriuretic Peptide 49.9 Clinical Impression(s) from Imaging Studies Abdomen/Pelvis CT 05/03/18 07:41 IMPRESSION: Large bladder mass as described causing a marked degree of bladder dilatation. Air is seen within the urinary bladder. This may be related to Maldonado catheter manipulation. If not, a colovesical fistula should be ruled out. Electronically Signed: Johnny Neil MD at 9:02 EST , Service support , Chest X-Ray 05/03/18 09:37 IMPRESSION: Mild cardiomegaly. Electronically Signed: Johnny Neil MD at 10:05 EST , Service support , Abdomen/Pelvis CT 05/04/18 07:00 IMPRESSION: Evaluation was performed to evaluate for a colovesical fistula. Please note that a study prior to injection of rectal contrast was not performed. This somewhat limits evaluation. There is hyperdense material in the bladder at time of prior study May 03, 2018 which most likely represented a hematoma. On today's examination again noted is gas as well as hyperdense material within the bladder. There is intimate association with a segment of the sigmoid colon with the urinary bladder. There is a small focus of gas within the bladder at this region. Findings would be concerning for a colovesical fistula. Correlate with urinalysis. Interval placement of a Maldonado catheter. The previously noted bladder hyperdense masslike lesion has significantly decreased in size. Likely representing a large hematoma. Recommend follow-up to ensure resolution. Diverticulosis is present. There is some thickening of the sigmoid colon with some stranding concerning for diverticulitis. Infrarenal abdominal aortic aneurysm. Decreasing right hydronephrosis. Evidence of prior granulomatous disease. Bilateral nephrolithiasis. Electronically Signed: Dawood Morrison at 7:57 EST Tel , Service support , Chest X-Ray 05/10/18 05:55 IMPRESSION: Atelectasis and/or infiltrates at the lung bases worse on the left side with blunting of left costophrenic angle. Electronically Signed: Johnny Neil MD at 9:43 EST , Service support , Chest X-Ray 05/12/18 16:45 IMPRESSION: 1. Decreased bibasilar atelectasis. No organizing infiltrates seen. 2. Gaseous distention of bowel in the upper abdomen, incompletely visualized. 3. Mild cardiomegaly. Electronically Signed: Tunde Cole MD at 17:03 EST , Service support , Abdomen/Pelvis CT 05/13/18 10:28 IMPRESSION: Small bilateral pleural effusions with bibasilar infiltrates and/or atelectasis. Small amount of perihepatic as well as perisplenic fluid as well as fluid in the pelvis. Small amount of fluid in the Col[place] gutters. Postoperative changes in the region of the umbilicus there Distention of the ascending colon and transverse colon and descending colon down to the region of the anastomosis at the rectosigmoid junction. A Maldonado catheter seen within the urinary bladder. Electronically Signed: Johnny Neil MD at 13:48 EST , Service support , Chest X-Ray 05/13/18 14:18 IMPRESSION: The tip of the right internal jugular venous catheter is in the proximal portion of the superior vena cava. There is no evidence of pneumothorax. Stable appearance of the lungs. Electronically Signed: Johnny Neil MD at 15:52 EST , Service support , Chest X-Ray 05/13/18 19:24 IMPRESSION: Interval placement endotracheal and enteric tubes as above. at 1954 Reported and signed by: Jason Goins MD Electronically Signed: Jason Goins, at 19:54 EST Tel , Service support , Chest X-Ray 05/16/18 09:45 IMPRESSION: Mild degree of increased markings at the lung bases. Free intraperitoneal air with the dilatation of the colon. Electronically Signed: Johnny Neil, at 14:24 EST , Service support , Medical Necessity - Tobacco Use Smoking Status: Current every day smoker Tobacco Use: Cigarettes Assessment/Plan All Active Problems (Last Reviewed 05/04/18 @ 08:39 by Prasanth Pradhan MD) Gross hematuria (Acute) Overweight (Acute) MASOOD (obstructive sleep apnea) (Acute) Colovesical fistula (Acute) Large bowel anastomotic leak (Acute) Sepsis associated hypotension (Acute) Perforated abdominal viscus (Acute) Perforated viscus (Acute) RECOMMENDATIONS: 1. Continue to wean supplemental oxygen as tolerated to maintain a saturation of 90%. Encourage incentive spirometer use. 2. If needed, BiPAP will be initiated. 3. Start vasopressor support to maintain a mean arterial pressure at or above [address] arterial line for more accurate hemodynamic monitoring. 5. Continue to hold home beta-bravo 6. Continue broad antibiotic coverage. Infectious diseases has been consulted. 7. Judicious use of fluids, given underlying cardiomyopathy. 8. Perform cosyntropin stimulation test. 9. Obtain repeat blood cultures and urine culture. 10. Hold Coumadin given supratherapeutic INR. 11. Continue as needed bronchodilators. 12. Obtain CT abdomen/pelvis with oral contrast. IMPRESSIONS: 1. Septic shock with concern for intra-abdominal infectious process due to anastomotic leak The patient was taken back to the OR on May 13 due to the presence of an anastomotic leak and underwent exploratory laparotomy with creation of an end colostomy. The patient did well postoperatively and was transferred back to the PCU. Over the last 48 hours, the patient has had an increasing white blood cell count along with tenuous hemodynamics. The exact etiology for the aforementioned is a bit unclear. He does not appear to be toxic in appearance. He is mentating appropriately. However, given the patient's persistent hypotension, he was referred back to the ICU. He has since been started on vasopressor support in an attempt to maintain a mean arterial pressure at or above 65 mmHg. Repeat blood and urine cultures are currently pending. Broad-spectrum antibiotics are being continued, pending infectious diseases consultation. A CT abdomen/pelvis with p.o. contrast will also be obtained. Additionally, a cosyntropin stimulation test will be performed to evaluate for the presence of adrenal insufficiency. However, this seems less likely. 2. Acute respiratory failure The patient's oxygen requirement has slowly worsened over the course of the last 48 hours as well. The patient's last plain film chest x-ray was underwhelming. While he does have an underlying cardiomyopathy with depressed ejection fraction, attempts at diuresis would be hindered by the patient's hypotension. Therefore, we will plan to continue to wean supplemental oxygen as tolerated. BiPAP can be utilized, if needed. 3. Coronary artery disease/chronic systolic heart failure Continue current medical therapy. The patient's Lasix and beta-bravo regimen are currently on hold. 4. Paroxysmal atrial fibrillation Continue systemic anticoagulation as ordered. Check daily INR. Continue to hold home Coreg dose. 5. History of obstructive sleep apnea The patient reports a history of noncompliance with the use of nocturnal Pap therapy. TIME: 65 minutes of critical care time, inclusive of procedures, was spent addressing the patient's septic shock, acute respiratory failure, coronary artery disease, acute kidney injury, paroxysmal atrial fibrillation, review of all data and collaboration with the care team. ([id number]) Code Visit [id number]: [id number] Critical care first hour
--- NOTE | 2018-05-17 07:18 | PN_ITS ---
Patient Problems: Active and Suspected Problems (Last Reviewed 05/04/18 @ 08:39 by Prasanth Pradhan MD) Gross hematuria (Acute) Overweight (Acute) MASOOD (obstructive sleep apnea) (Acute) non-compliant with CPAP Peripheral arterial disease (Suspected) Colovesical fistula (Acute) Large bowel anastomotic leak (Acute) Sepsis associated hypotension (Acute) Perforated abdominal viscus (Acute) Perforated viscus (Acute) Subjective: The patient was seen and examined at the bedside this morning. Events from the last 24 hours have been reviewed. The patient is currently afebrile and maintaining oxygen saturations on 8 L/min via nasal cannula. The patient did receive a one-time dose of IV Lasix 20 mg yesterday. In addition, he has been continued on his home beta blockade regimen. Overnight, the patient's hemodynamics have been tenuous. His white blood cell count is steadily increasing and is currently 24,000 this morning. He is currently documented to be overall net +7.1 L for the admission. Orders for a 500 cc saline bolus were placed this morning along with repeat blood cultures. Orders for the patient's beta-bravo were also discontinued. Despite being bolused with supplemental IV fluids, the patient remained hypotensive with increasing oxygen requirements. Therefore, the decision was made to transfer the patient back to the medical intensive care unit. Following his arrival back in the ICU, he was started on both vasopressin and Levophed. This was done in an attempt to minimize the amount of Levophed required to maintain hemodynamic stability, given the patient's atrial fibrillation with rapid ventricular rate. Serum lactate was noted to be within normal limits. Arterial Line Insertion: A time-out was completed verifying correct patient, procedure, site, positioning, and special equipment if applicable. Rod?s test was performed to ensure adequate perfusion. The patient?s right wrist was prepped and draped in sterile fashion. 1% Lidocaine was used to anesthetize the area. An 18G Arrow arterial line was introduced into the radial artery. The catheter was threaded over the guide wire and the needle was removed with appropriate pulsatile blood return. The catheter was then sutured in place to the skin and a sterile dressing applied. Perfusion to the extremity distal to the point of catheter insertion was checked and found to be adequate. ULTRASOUND GUIDANCE STATEMENT (Vascular Access): I performed ultrasound image acquisition and interpretation for needle placement during this procedure. The vessel was identified and was found to be free of thrombosis by compression technique. A safe point of entry was marked at the skin and an angle for access was determined. The needle was guided by obtaining free flowing fluid and by real time visualization. Objective: The patient's most recent lab work, culture data and imaging studies have all been personally reviewed. Initial blood cultures dated May 12 have shown no growth to date. - Physical Exam General: Alert, Oriented x3, Cooperative, No apparent distress HEENT: Atraumatic, PERRLA, Normocephalic Oral: No Gingival or Mucosal Lesions/ Ulcerations Neck: Supple, No Nodes, Trachea Midline, - - Central venous catheter remains in place. Lungs: No rhonchi, No wheeze, No rales, Diminished Cardiovascular: Normal S1, Normal S2, Irregular Rate, Tachycardic Abdomen: Soft, Distended, - - Retention sutures, ostomy and RICARDO in place. Extremities: No clubbing, No cyanosis Skin: - - No significant change from previous Musculoskeletal: No Tenderness to Palpation of Joints or Extremities Lymphatic: No Cervical, Supraclavicular, or Inguinal Adenopathy Neurological: Cranial nerves II-XII grossly intact, Neuro grossly intact Psych/Mental Status: Normal Affect, Appropriate Vital Signs Temp Pulse Resp BP Pulse Ox 36.3 C L 94 18 77/48 L 90 05/17/18 06:30 05/17/18 06:30 05/17/18 06:30 05/17/18 06:30 05/17/18 06:30 Oxygen Flow Rate (L/min) 8 Oxygen Delivery Method Nasal Cannula Weight: 243 lb 2.718 oz Body Mass Index (BMI) 29.9 Intake and Output for Last 24 Hours 05/15/18 05/16/18 05/17/18 23:59 23:59 23:59 Intake Total 1621 / 1621 1985 / 1985 345 / 345 Output Total 1150 / 1150 1550 / 1550 210 / 210 Balance 471 / 471 436 / 436 135 / 135 Microbiology Past 72 Hours 05/12/18 17:10 Blood Culture - Preliminary Blood Culture (Wb) - Left Hand No growth in 48 hours. 05/12/18 17:05 Blood Culture - Preliminary Blood Culture (Wb) - Anticubital Left No growth in 48 hours. Laboratory Tests Past 24 Hrs 05/16/18 05/17/18 05/17/18 05:30 05:15 05:15 WBC 23.8 H RBC 2.81 L Hgb 10.3 L Hct 30.5 L MCV 108.5 H MCH 36.7 H MCHC 33.8 RDW 15.2 H RDW Differential 59.8 H Plt Count 432 MPV 11.7 Immature Gran % (Auto) 1.200 H Neut % (Auto) 87.6 H Lymph % (Auto) 4.2 L Wood % (Auto) 6.4 Eos % (Auto) 0.4 Baso % (Auto) 0.2 Absolute Neuts (auto) 20.9 H Absolute Lymphs (auto) 0.99 Total Counted Not Reportable Diff Path Review May foll Sodium 131 L Potassium 3.9 Chloride 93 L Carbon Dioxide 28.0 Anion Gap 10 BUN 44 H Creatinine 2.15 H Estim Creat Clear Calc 39.60 Est GFR (MDRD) Af Amer 40 L Est GFR (MDRD) Non-Af 33 L BUN/Creatinine Ratio 20.5 H Glucose 107 H Calcium 7.6 L B-Natriuretic Peptide 49.9 Clinical Impression(s) from Imaging Studies Abdomen/Pelvis CT 05/03/18 07:41 IMPRESSION: Large bladder mass as described causing a marked degree of bladder dilatation. Air is seen within the urinary bladder. This may be related to Maldonado catheter manipulation. If not, a colovesical fistula should be ruled out. Electronically Signed: Johnny Neil MD at 9:02 EST , Service support , Chest X-Ray 05/03/18 09:37 IMPRESSION: Mild cardiomegaly. Electronically Signed: Johnny Neil MD at 10:05 EST , Service support , Abdomen/Pelvis CT 05/04/18 07:00 IMPRESSION: Evaluation was performed to evaluate for a colovesical fistula. Please note that a study prior to injection of rectal contrast was not performed. This somewhat limits evaluation. There is hyperdense material in the bladder at time of prior study May 03, 2018 which most likely represented a hematoma. On today's examination again noted is gas as well as hyperdense material within the bladder. There is intimate association with a segment of the sigmoid colon with the urinary bladder. There is a small focus of gas within the bladder at this region. Findings would be concerning for a colovesical fistula. Correlate with urinalysis. Interval placement of a Maldonado catheter. The previously noted bladder hyperdense masslike lesion has significantly decreased in size. Likely representing a large hematoma. Recommend follow-up to ensure resolution. Diverticulosis is present. There is some thickening of the sigmoid colon with some stranding concerning for diverticulitis. Infrarenal abdominal aortic aneurysm. Decreasing right hydronephrosis. Evidence of prior granulomatous disease. Bilateral nephrolithiasis. Electronically Signed: Dawood Morrison at 7:57 EST Tel , Service support , Chest X-Ray 05/10/18 05:55 IMPRESSION: Atelectasis and/or infiltrates at the lung bases worse on the left side with blunting of left costophrenic angle. Electronically Signed: Johnny Neil MD at 9:43 EST , Service support , Chest X-Ray 05/12/18 16:45 IMPRESSION: 1. Decreased bibasilar atelectasis. No organizing infiltrates seen. 2. Gaseous distention of bowel in the upper abdomen, incompletely visualized. 3. Mild cardiomegaly. Electronically Signed: Tunde Cole MD at 17:03 EST , Service support , Abdomen/Pelvis CT 05/13/18 10:28 IMPRESSION: Small bilateral pleural effusions with bibasilar infiltrates and/or atelectasis. Small amount of perihepatic as well as perisplenic fluid as well as fluid in the pelvis. Small amount of fluid in the Colic gutters. Postoperative changes in the region of the umbilicus there Distention of the ascending colon and transverse colon and descending colon down to the region of the anastomosis at the rectosigmoid junction. A Maldonado catheter seen within the urinary bladder. Electronically Signed: Johnny Neil MD at 13:48 EST , Service support , Chest X-Ray 05/13/18 14:18 IMPRESSION: The tip of the right internal jugular venous catheter is in the proximal portion of the superior vena cava. There is no evidence of pneumothorax. Stable appearance of the lungs. Electronically Signed: Johnny Neil MD at 15:52 EST , Service support , Chest X-Ray 05/13/18 19:24 IMPRESSION: Interval placement endotracheal and enteric tubes as above. at 1954 Reported and signed by: Jason Goins MD Electronically Signed: Jason Goins, at 19:54 EST Tel , Service support , Chest X-Ray 05/16/18 09:45 IMPRESSION: Mild degree of increased markings at the lung bases. Free intraperitoneal air with the dilatation of the colon. Electronically Signed: Johnny Neil, at 14:24 EST , Service support , Medical Necessity - Tobacco Use Smoking Status: Current every day smoker Tobacco Use: Cigarettes Assessment/Plan All Active Problems (Last Reviewed 05/04/18 @ 08:39 by Prasanth Pradhan MD) Gross hematuria (Acute) Overweight (Acute) MASOOD (obstructive sleep apnea) (Acute) Colovesical fistula (Acute) Large bowel anastomotic leak (Acute) Sepsis associated hypotension (Acute) Perforated abdominal viscus (Acute) Perforated viscus (Acute) RECOMMENDATIONS: 1. Continue to wean supplemental oxygen as tolerated to maintain a saturation of 90%. Encourage incentive spirometer use. 2. If needed, BiPAP will be initiated. 3. Start vasopressor support to maintain a mean arterial pressure at or above [address] arterial line for more accurate hemodynamic monitoring. 5. Continue to hold home beta-bravo 6. Continue broad antibiotic coverage. Infectious diseases has been consulted. 7. Judicious use of fluids, given underlying cardiomyopathy. 8. Perform cosyntropin stimulation test. 9. Obtain repeat blood cultures and urine culture. 10. Hold Coumadin given supratherapeutic INR. 11. Continue as needed bronchodilators. 12. Obtain CT abdomen/pelvis with oral contrast. IMPRESSIONS: 1. Septic shock with concern for intra-abdominal infectious process due to anastomotic leak The patient was taken back to the OR on May 13 due to the presence of an anastomotic leak and underwent exploratory laparotomy with creation of an end c olostomy. The patient did well postoperatively and was transferred back to the PCU. Over the last 48 hours, the patient has had an increasing white blood cell count along with tenuous hemodynamics. The exact etiology for the aforementioned is a bit unclear. He does not appear to be toxic in appearance. He is mentating appropriately. However, given the patient's persistent hypotension, he was referred back to the ICU. He has since been started on vasopressor support in an attempt to maintain a mean arterial pressure at or above 65 mmHg. Repeat blood and urine cultures are currently pending. Broad- spectrum antibiotics are being continued, pending infectious diseases consultation. A CT abdomen/pelvis with p.o. contrast will also be obtained. Additionally, a cosyntropin stimulation test will be performed to evaluate for the presence of adrenal insufficiency. However, this seems less likely. 2. Acute respiratory failure The patient's oxygen requirement has slowly worsened over the course of the last 48 hours as well. The patient's last plain film chest x-ray was underwhelming. While he does have an underlying cardiomyopathy with depressed ejection fraction, attempts at diuresis would be hindered by the patient's hypotension. Therefore, we will plan to continue to wean supplemental oxygen as tolerated. BiPAP can be utilized, if needed. 3. Coronary artery disease/chronic systolic heart failure Continue current medical therapy. The patient's Lasix and beta-bravo regimen are currently on hold. 4. Paroxysmal atrial fibrillation Continue systemic anticoagulation as ordered. Check daily INR. Continue to hold home Coreg dose. 5. History of obstructive sleep apnea The patient reports a history of noncompliance with the use of nocturnal Pap therapy. TIME: 65 minutes of critical care time, inclusive of procedures, was spent addressing the patient's septic shock, acute respiratory failure, coronary artery disease, acute kidney injury, paroxysmal atrial fibrillation, review of all data and collaboration with the care team. ([id number]) Code Visit [id number]: [id number] Critical care first hour
[2018-05-17] MEDS: Gabapentin 300 MG Capsule PO (08:08)
[2018-05-17] MEDS: Magnesium Oxide 400 MG Tablet PO (08:08)
[2018-05-17] MEDS: Docusate Sodium 100 MG Capsule PO ×2 (08:08→20:59)
[2018-05-17 08:44] LABS: Prothrombin Time (Protime)PT. 67.3 SECONDS (11.7-14.9)
[2018-05-17 08:49] LABS: International Normalized Ratio 7.8
--- NOTE | 2018-05-17 09:13 | PN_ITS ---
Patient Problems: Active and Suspected Problems (Last Reviewed 05/04/18 @ 08:39 by Prasanth Pradhan MD) Gross hematuria (Acute) Overweight (Acute) MASOOD (obstructive sleep apnea) (Acute) non-compliant with CPAP Peripheral arterial disease (Suspected) Colovesical fistula (Acute) Large bowel anastomotic leak (Acute) Sepsis associated hypotension (Acute) Subjective: Overall clinical assessment shows worsening of blood pressure, systolic in 70s, heart rate in 100s, no fever, pulse ox 92 on 8 L of oxygen. INR is 7.8. Leukocytosis with left shift. Patient had urine output 210 since 12 midnight with concern for oliguria. Yesterday urine output 1500+ balance of 436 mL. Patient is not tachypneic. Patient states he had a good sleep last night. Overall colostomy is functioning with liquid stool and gas. Slight bleeding from the packing site and wound. Discussed with the wound care nurse Manuela and picture of the wound reviewed. Main abdominal incision wound has retention suture with inferior end has fatty necrosis, but is therefore many days. Slight oozing from the colostomy site on 05/16/2018 Patient was seen in the morning and then noontime Vitals/I&O's: Vital Signs Temp Pulse Resp BP Pulse Ox 97.4 F L 104 H 18 77/48 L 86 05/17/18 06:30 05/17/18 07:47 05/17/18 06:30 05/17/18 06:30 05/17/18 07:34 Oxygen Flow Rate (L/min) 9 Oxygen Delivery Method Nasal Cannula Weight: 243 lb 2.718 oz Body Mass Index (BMI) 29.9 Intake and Output for Last 24 Hours 05/15/18 05/16/18 05/17/18 23:59 23:59 23:59 Intake Total 1621 / 1621 1985 / 1985 345 / 345 Output Total 1150 / 1150 1550 / 1550 210 / 210 Balance 471 / 471 436 / 436 135 / 135 General: Alert, Oriented x3, Cooperative HEENT: Atraumatic, PERRLA, EOMI, Normocephalic Oral: Dry Mucosa Neck: Supple, No JVD, Negative Carotid Bruits Lungs: No rhonchi, No wheeze, No rales, Diminished - Air entry is diminished in both lung bases. Diaphragm retracted up Cardiovascular: Regular rate, Normal S1, Normal S2, No murmurs Abdomen: Bowel Sounds Present, Soft, Non Tender, Hypoactive Bowel Sounds, Distended Extremities: Edema, - - Maldonado catheter. Clear urine Musculoskeletal: Arthritic Changes Microbiology Past 72 Hours 05/12/18 17:10 Blood Culture (Wb) - Left Hand Blood Culture - Preliminary No growth in 48 hours. 05/12/18 17:05 Blood Culture (Wb) - Anticubital Left Blood Culture - Preliminary No growth in 48 hours. Laboratory Results 05/16/18 05:30: B-Natriuretic Peptide 49.9 05/17/18 05:15: WBC 23.8 H, RBC 2.81 L, Hgb 10.3 L, Hct 30.5 L, MCV 108.5 H, MCH 36.7 H, MCHC 33.8, RDW 15.2 H, RDW Differential 59.8 H, Plt Count 432, MPV 11.7, Immature Gran % (Auto) 1.200 H, Neut % (Auto) 87.6 H, Lymph % (Auto) 4.2 L, Divide % (Auto) 6.4, Eos % (Auto) 0.4, Baso % (Auto) 0.2, Absolute Neuts (auto) 20.9 H, Absolute Lymphs (auto) 0.99, Total Counted Not Reportable, Diff Path Review July05/17/18 05:15: Sodium 131 L, Potassium 3.9, Chloride 93 L, Carbon Dioxide 28.0, Anion Gap 10, BUN 44 H, Creatinine 2.15 H, Estim Creat Clear Calc 39.60, Est GFR (MDRD) Af Amer 40 L, Est GFR (MDRD) Non-Af 33 L, BUN/Creatinine Ratio 20.5 H, Glucose 107 H, Calcium 7.6 L 05/17/18 08:13: PT 67.3 H, INR 7.8 H* Current Medications Albuterol/Ipratropium (Duoneb) 3 ml INHALATION Q4H.RT PRN PRN Reason: WHEEZING Atorvastatin Calcium (Lipitor) 40 mg PO HS [facility] Last Admin: 05/16/18 21:40 Dose: 40 mg Bisacodyl (Dulcolax) 5 mg PO DAILY PRN PRN PRN Reason: Constipation Docusate Sodium (Colace) 100 mg PO BID [facility] Last Admin: 05/17/18 08:08 Dose: 100 mg Fentanyl Citrate (Sublimaze (100mcg Ampule)) 25 mcg IV Q4H PRN PRN Reason: PAIN Last Admin: 05/14/18 20:50 Dose: 25 mcg Gabapentin (Neurontin) 300 mg PO TIDCM [facility] Last Admin: 05/17/18 08:08 Dose: 300 mg Meropenem 1 gm/ Sodium (Chloride) 120 mls @ 33 mls/hr IV Q8 [facility] Last Admin: 05/17/18 05:43 Dose: 33 mls/hr Magnesium Hydroxide (Milk Of Magnesia) 30 ml PO DAILY PRN PRN Reason: Constipation Magnesium Oxide (Mag-Ox 400) 400 mg PO DAILY [facility] Last Admin: 05/17/18 08:08 Dose: 400 mg Nutritional Formula (Lactose Free) (Ensure Clear) 120 ml PO TIDCM [facility] Last Admin: 05/17/18 08:03 Dose: Not Given Ondansetron HCl (Zofran) 4 mg IV Q6H PRN PRN PRN Reason: Nausea Last Admin: 05/16/18 04:56 Dose: 4 mg Oxycodone HCl (Oxyir) 5 mg PO Q4H PRN PRN PRN Reason: Moderate Pain (pain scale 4-5) Last Admin: 05/16/18 10:03 Dose: 5 mg Potassium Chloride (K-Dur) 10 meq PO DAILY [facility] Last Admin: 05/17/18 08:08 Dose: 10 meq Psyllium Hydrophilic Mucilloid (Metamucil) 1 packet PO DAILY PRN PRN PRN Reason: CONSTIPATION Sodium Chloride () 5 - 15 ml IV UD PRN PRN Reason: SALINE FLUSH Last Admin: 05/17/18 05:18 Dose: 10 ml Sodium Hypochlorite (Dakins Solution 0.25% (1/2 Strength)) 1 applic TOPICAL BID [facility]; Protocol Last Admin: 05/16/18 21:40 Dose: 1 applicatio Warfarin Sodium (Coumadin (Pbkc)) 5 mg PO DAILY@1700 [facility] Last Admin: 05/16/18 17:48 Dose: 5 mg Medical Necessity - Tobacco Use Smoking Status: Current every day smoker Tobacco Use: Cigarettes Assessment/Plan All Active Problems (Last Reviewed 05/04/18 @ 08:39 by Prasanth Pradhan MD) Gross hematuria (Acute) Overweight (Acute) MASOOD (obstructive sleep apnea) (Acute) Colovesical fistula (Acute) Large bowel anastomotic leak (Acute) Sepsis associated hypotension (Acute) 62-year-old male with past medical history of hypertension, CAD, dilated cardiomyopathy, EF 30%, nicotine dependence who was admitted on 05/02/[address] abdomen and pelvis without contrast showed 8.7 x 8.3 single large mass in the base of the bladder with marked urinary bladder distention air-fluid level was seen in bladder along with colonic diverticulosis which raised the suspicion of colovesical fistula. Further workup for hematuria including cystoscopy revealed large bladder stone for which cystolitholaplaxy, extraction of blood clots and stone fragments was done on 05/03/2018. Patient had sigmoid colon resection and repair of colovesical fistula on 05/03/2018. Subsequently it was complicated with anastomotic leak and patient had exploratory laparotomy and creation of the end colostomy on 05/13/2018 1. Septic shock due to anastomotic leak and intraabdominal abscess. Overall patient clinical status deteriorated since yesterday and patient is being transferred back to ICU. Discussed with gym instructor, surgeon, wound nurse. ID consult. MRSA nasal screen ordered. Patient is on IV meropenem. Vancomy corky is added. MRSA nasal screen came out negative Leukocytosis, coagulopathy, oliguric and acute kidney injury. * Hypotension. On IV fluid normal saline 1 L bolus * s/p exploratory laparotomy with diverting colostomy * ID consult reviewed and appreciated * CT abdomen with oral contrast is ordered. 2. LLE DVT: developed after surgery. * Coagulopathic * Coumadin discontinued 3. Colovesical fistula s/p colectomy complicated by anastomotic leak and intra- abdominal abscess * exploratory laparotomy for anastomotic leak with end-colostomy placement. * general surgery on board 4. Acute hypoxic respiratory failure * On 8 L of oxygen * continue breathing treatments; continue oxygen to maintain sats>92% 5. Gross hematuria: resolved. Maldonado catheter in place. to follow up with urology on outpatient basis 6. Possible gout: foot pain is better.Will monitor 7. CAD and ischemic cardiomyopathy * has known EF of 30% * has a history of left atrial appendage thrombus. cardiology on board * Beta-blockers, Lasix and lisinopril on hold on account of hypotension * Hold antihypertensive medications until blood pressure recovers * 8. Hypertension: Carvedilol, lisinopril held on account of hypotension. 9. A. fib: Heart rate 110s 10. MASOOD: Noncompliant with CPAP. DVT prophylaxis: Coagulopathic. Bilateral SCDs. The patient is being transferred to ICU. Total time spent more than 40 minutes in in taking care of patient and discussion with consultants, surgeon, gym instructor and ID Code Visit Inpatient E&M: [id number] Subs Hosp L3
--- NOTE | 2018-05-17 09:21 | NURSING ---
inr 7.8 dr garcia notified, 1l ns bolus infused bp 80/40, report called to icu for transfer to room icu3
--- NOTE | 2018-05-17 09:24 | CASEMGMT ---
Patient was approved to go to TCU. However, he is now being transferred back to ICU. SW called Alicja in TCU and let her know this information. She said pre-cert is good through the weekend. SW will put green sheet on chart in the event patient improves and can be discharged over the weekend. Plan: [facility] TCU when ready. Pre-cert received and good until Sunday. Pre-cert is not good Sunday and will require another pre-cert. Riana MANCINI LOIN TRIMMER
--- NOTE | 2018-05-17 10:04 | NURSING ---
wound photo: abdomen
--- NOTE | 2018-05-17 10:21 | PCM.RX.CS ---
Consult Pharmacy has been consulted to manage selected antiobiotic: Vancomycin Type of Consult: New start Suspected Infection: Sepsis Prior Doses of Antibiotics Received/Current Regimen: NONE Labs: Sodium 131 mmol/L (136-145) L 05/17/18 05:15 Potassium 3.9 mmol/L (3.5-5.1) 05/17/18 05:15 Chloride 93 mmol/L (98-107) L 05/17/18 05:15 Carbon Dioxide 28.0 mmol/L (21.0-32.0) 05/17/18 05:15 Anion Gap 10 (5-15) 05/17/18 05:15 BUN 44 mg/dL (7-18) H 05/17/18 05:15 Creatinine 2.15 mg/dL (0.70-1.30) H 05/17/18 05:15 Est GFR (MDRD) Af Amer 40 mL/min (>60) L 05/17/18 05:15 Est GFR (MDRD) Non-Af 33 mL/min (>60) L 05/17/18 05:15 BUN/Creatinine Ratio 20.5 RATIO (10-20) H 05/17/18 05:15 Glucose 107 mg/dL (74-106) H 05/17/18 05:15 Microbiology: Microbiology 05/12/18 17:10 Blood Culture (Wb) - Left Hand Blood Culture - Preliminary No growth in 48 hours. 05/12/18 17:05 Blood Culture (Wb) - Anticubital Left Blood Culture - Preliminary No growth in 48 hours. Weight used for dosin kg Estimated Creatinine Clearance: 40 ml/min Goal Trough: 10-15 mcg/mL Pharmacy Plan for Drug Dosing: Pharmacy consulted for vancomycin management per hospitalist service. Called and spoke with Dr. Garcia, and based on the patient's decline in renal function/ urine output; it was decided to give a loading dose of 1750mg IV x1 then obtain a random vancomycin trough in 24 hours and re-dose if appropriate. Pharmacy will monitor daily PLAN/RECOMMENDATIONS 1. vancomycin 1750mg IV x1 2. Random trough scheduled for 05/18/18 @ 1030 3. Pharmacy Service will continue to monitor and adjust dosing as required.
[2018-05-17 10:35] LABS: Lactic Acid 1.4 mmol/L (0.4-2.0)
--- NOTE | 2018-05-17 11:30 | CT_ITS ---
STUDY: CT ABDOMEN AND PELVIS WITHOUT CONTRAST REASON FOR EXAM: Male, 62 years old. Sigmoid colon resection, repair colovesical fistula, anastomotic leak, abdominal abscess. RADIATION DOSAGE (If Supplied By Facility): CTDIvol = ( 14.8 ) mGy, DLP = ( 866.66 ) mGycm TECHNIQUE: Transaxial images were obtained from the dome of the diaphragm to the symphysis pubis without oral contrast, and without intravenous contrast. Sagittal and coronal images were reconstructed. Individualized dose optimization techniques were used for this CT. COMPARISON: 05/13/2018. FINDINGS: Small bilateral pleural effusions are noted with compressive atelectasis. The heart is mildly enlarged. There is no pericardial effusion. The liver is unremarkable. The gallbladder is unremarkable. The spleen and pancreas are unremarkable. The adrenal glands are normal. The kidneys are unremarkable. No stones or hydronephrosis. Distal aorta measures 3.2 cm in caliber. The patient is status post midline incision with open wound and left lower quadrant ostomy. There is a large amount of free air in the anterior abdomen, significantly increased compared to the prior study. Gas fluid levels are noted bilaterally. There are multiple dilated small bowel loops in the upper abdomen measuring up to 4.8 cm in diameter. Gradual transition is noted in the pelvis on the left, and may be due to adhesions. There is no evidence of closed loop. Anastomotic suture is again noted at the rectosigmoid junction. Surgical drain terminates in the left lower quadrant/upper pelvis. Urinary bladder is catheterized and decompressed. Gas in the bladder is consistent with catheterization and/or history of colovesical fistula. There is cortical absent flattening of the left femoral head, likely secondary to underlying osteonecrosis. There is superior migration of the left femoral head and narrowing of the superior joint space. Mild degenerative cystic changes of the left acetabulum are noted. Degenerative changes of the thoracolumbar spine are noted. CT/Abdomen/Pel W ORAL Cont Only IMPRESSION: 1. Extensive free air and mild free fluid in the anterior abdomen, concerning for possible anastomotic leak. Open wound may be contributory. 2. Dilated small bowel with gradual transition in the pelvis, possibly due to adhesions. 3. Gas in decompressed bladder may be due to catheter placement or fistula. 4. Small pleural effusions. 5. A 3.2 cm infrarenal AAA. 6. Left femoral head collapse, likely secondary to avascular necrosis. Dr. Mayorga discussed the findings with Dr. Woo at 5:28 PM. N.B. : The above information has been verbally conveyed by Aleena Mayorga MD to Dr. Gerardo Woo MD, on 05/17/2018 17:29:57 (ET). Electronically Signed: Aleena Mayorga MD at 17:31 EST Tel , Service support ,
--- NOTE | 2018-05-17 11:43 | PCM.PN.SRG ---
Patient Problems: Active and Suspected Problems (Last Reviewed 05/04/18 @ 08:39 by Prasanth Pradhan MD) Gross hematuria (Acute) Overweight (Acute) MASOOD (obstructive sleep apnea) (Acute) non-compliant with CPAP Peripheral arterial disease (Suspected) Colovesical fistula (Acute) Large bowel anastomotic leak (Acute) Sepsis associated hypotension (Acute) Subjective: Patient is awake and talkative answers questions appropriately states that his belly pain has improved. There is air and liquid stool from the colostomy. Objective: abd is still destended air and liquid stool in bag Abd has no rebound or peritoneal signs - Physical Exam Vital Signs Temp Pulse Resp BP Pulse Ox 97.4 F L 101 H 22 H 107/64 88 05/17/18 06:30 05/17/18 11:00 05/17/18 10:30 05/17/18 10:30 05/17/18 10:30 Oxygen Flow Rate (L/min) 12 Oxygen Delivery Method Nasal Cannula Weight: 243 lb 2.718 oz Body Mass Index (BMI) 29.9 Intake and Output for Last 24 Hours 05/15/18 05/16/18 05/17/18 23:59 23:59 23:59 Intake Total 1621 / 1621 1985 / 1985 345 / 345 Output Total 1150 / 1150 1550 / 1550 210 / 210 Balance 471 / 471 436 / 436 135 / 135 Microbiology Past 72 Hours 05/12/18 17:10 Blood Culture - Preliminary Blood Culture (Wb) - Left Hand No growth in 48 hours. 05/12/18 17:05 Blood Culture - Preliminary Blood Culture (Wb) - Anticubital Left No growth in 48 hours. Laboratory Tests Past 24 Hrs 05/17/18 05/17/18 05/17/18 05:15 05:15 08:13 WBC 23.8 H RBC 2.81 L Hgb 10.3 L Hct 30.5 L MCV 108.5 H MCH 36.7 H MCHC 33.8 RDW 15.2 H RDW Differential 59.8 H Plt Count 432 MPV 11.7 Immature Gran % (Auto) 1.200 H Neut % (Auto) 87.6 H Lymph % (Auto) 4.2 L Cameron % (Auto) 6.4 Eos % (Auto) 0.4 Baso % (Auto) 0.2 Absolute Neuts (auto) 20.9 H Absolute Lymphs (auto) 0.99 Total Counted Not Reportable Diff Path Review May foll PT 67.3 H INR 7.8 H* Sodium 131 L Potassium 3.9 Chloride 93 L Carbon Dioxide 28.0 Anion Gap 10 BUN 44 H Creatinine 2.15 H Estim Creat Clear Calc 39.60 Est GFR (MDRD) Af Amer 40 L Est GFR (MDRD) Non-Af 33 L BUN/Creatinine Ratio 20.5 H Glucose 107 H Lactic Acid Calcium 7.6 L MRSA (PCR) 05/17/18 05/17/18 09:50 10:05 WBC RBC Hgb Hct MCV MCH MCHC RDW RDW Differential Plt Count MPV Immature Gran % (Auto) Neut % (Auto) Lymph % (Auto) Cameron % (Auto) Eos % (Auto) Baso % (Auto) Absolute Neuts (auto) Absolute Lymphs (auto) Total Counted Diff Path Review PT INR Sodium Potassium Chloride Carbon Dioxide Anion Gap BUN Creatinine Estim Creat Clear Calc Est GFR (MDRD) Af Amer Est GFR (MDRD) Non-Af BUN/Creatinine Ratio Glucose Lactic Acid 1.4 Calcium MRSA (PCR) Pending Medical Necessity - Tobacco Use Smoking Status: Current every day smoker Tobacco Use: Cigarettes Assessment/Plan All Active Problems (Last Reviewed 05/04/18 @ 08:39 by Prasanth Pradhan MD) Gross hematuria (Acute) Overweight (Acute) MASOOD (obstructive sleep apnea) (Acute) Colovesical fistula (Acute) Large bowel anastomotic leak (Acute) Sepsis associated hypotension (Acute) Postoperative day #3 This is a very confusing patient. Not quite sure why he is so alert and talkative and his belly is improving but his white count is still going up. His oxygenation is worsening. Patient has been moved back to the intensive care unit and Dr. Woo is currently managing the patient. We have asked an infectious disease doctor to get involved to check medications. We are going to obtain a CAT scan of the abdomen and pelvis with oral contrast only. The RICARDO drain is draining serous fluid only and it does not look like pus.
[2018-05-17 12:07] LABS: M R Staph aureus DNA By PCR Negative (Negative); Probe Check PASS; Specimen Processing Control PASS
--- NOTE | 2018-05-17 12:20 | CON.PCM_ITS ---
Problem List (1) Colovesical fistula Status: Acute Reason for Consult: hypotension Consulted by: Dr. Garcia History of Present Illness: The patient is a 62 year old M who presented 05/03 with colovesicular fistula. Taken to OR by Dr. Pradhan and Dr. Kam. Was on zosyn 05/06 - 05/13. Developed sepsis, hypotension, taken back to OR 05/[address] Pradhan for anastamotic leak with pus and stool draining. Abx changed to meropenem, he should improvement, moved out of icu. Has been feeling about the same for past few days, no new fever, no new abd pain, no cough or SOB. Overnight hypotensive to 64/39. Sent back to icu, vanc added, cxs sent. Full ROS performed and neg except as noted above. 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) Mild 25-50% stenosis mid LAD Severe left ventricular systolic dysfunction (Chronic) 30% EF in August 2017 with moderate global right ventricular systolic dysfunction, severe left atrial enlargement, left atrial appendage thrombus, severely enlarged right atrium moderate aortic valve stenosis Nonrheumatic aortic (valve) stenosis (Chronic) 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 (Chronic) 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) Managed by PCP, warfarin Paroxysmal atrial fibrillation (Chronic) Allergies/Adverse Reactions: Allergies No Known Allergies Allergy (Verified 05/03/18 07:02) Home Medications: Ambulatory Orders Medication Instructions Recorded Furosemide [Lasix] 20 mg PO DAILY 04/24/14 gabapentin 300 mg capsule 300 mg PO TID 06/11/17 magnesium oxide 400 mg capsule 400 mg PO QDAY cap 06/11/17 potassium chloride ER 10 mEq 10 meq PO QDAY cap 06/11/17 capsule,extended release warfarin 5 mg tablet 5 mg PO .COMPLEX 06/11/17 aspirin 81 mg tablet,delayed 81 mg PO QDAY 08/15/17 release atorvastatin 40 mg tablet 40 mg PO QDAY #30 tab 12/14/17 Carvedilol 25 mg PO BID 05/03/18 Lisinopril [Zestril] 5 mg PO QDAY 05/03/18 Nitrofurantoin Macrocrystal 100 mg PO BID 05/03/18 [Macrodantin] - Social History Tobacco Use: cigarettes Vital Signs Temp Pulse Resp BP Pulse Ox 97.4 F L 100 20 H 92/63 88 05/17/18 06:30 05/17/18 12:00 05/17/18 12:00 05/17/18 12:00 05/17/18 12:00 Oxygen Flow Rate (L/min) 12 Oxygen Delivery Method Nasal Cannula Weight: 110.3 kg Body Mass Index (BMI) 29.9 Microbiology Past 72 Hours 05/12/18 17:10 Blood Culture - Preliminary Blood Culture (Wb) - Left Hand No growth in 48 hours. 05/12/18 17:05 Blood Culture - Preliminary Blood Culture (Wb) - Anticubital Left No growth in 48 hours. Laboratory Tests Past 24 Hrs 05/17/18 05/17/18 05/17/18 05:15 05:15 08:13 WBC 23.8 H RBC 2.81 L Hgb 10.3 L Hct 30.5 L MCV 108.5 H MCH 36.7 H MCHC 33.8 RDW 15.2 H RDW Differential 59.8 H Plt Count 432 MPV 11.7 Immature Gran % (Auto) 1.200 H Neut % (Auto) 87.6 H Lymph % (Auto) 4.2 L Mcdonald % (Auto) 6.4 Eos % (Auto) 0.4 Baso % (Auto) 0.2 Absolute Neuts (auto) 20.9 H Absolute Lymphs (auto) 0.99 Total Counted Not Reportable Diff Path Review July foll PT 67.3 H INR 7.8 H* Sodium 131 L Potassium 3.9 Chloride 93 L Carbon Dioxide 28.0 Anion Gap 10 BUN 44 H Creatinine 2.15 H Estim Creat Clear Calc 39.60 Est GFR (MDRD) Af Amer 40 L Est GFR (MDRD) Non-Af 33 L BUN/Creatinine Ratio 20.5 H Glucose 107 H Lactic Acid Calcium 7.6 L MRSA (PCR) 05/17/18 05/17/18 09:50 10:05 WBC RBC Hgb Hct MCV MCH MCHC RDW RDW Differential Plt Count MPV Immature Gran % (Auto) Neut % (Auto) Lymph % (Auto) Mcdonald % (Auto) Eos % (Auto) Baso % (Auto) Absolute Neuts (auto) Absolute Lymphs (auto) Total Counted Diff Path Review PT INR Sodium Potassium Chloride Carbon Dioxide Anion Gap BUN Creatinine Estim Creat Clear Calc Est GFR (MDRD) Af Amer Est GFR (MDRD) Non-Af BUN/Creatinine Ratio Glucose Lactic Acid 1.4 Calcium MRSA (PCR) Negative - Other Studies Radiology: [] reviewed Other Studies: [] Route of nutrition/ use of supplements: [] Nutritional Intake: [] IV Site: [] Maldonado Catheter: [] - Physical Exam General: Alert, Oriented x3, Cooperative, No apparent distress HEENT: Atraumatic, PERRLA, EOMI Neck: Supple, No Nodes Lungs: Clear to auscultation, Diminished Cardiovascular: Tachycardic Abdomen: Soft, Non Tender, Distended - mild, - - abd incision dry Extremities: No edema Skin: No rashes IV Site: Central Line, without redness Musculoskeletal: No Tenderness to Palpation of Joints or Extremities Neurological: Cranial nerves II-XII grossly intact - Assessment/Plan Antibiotics: [] Assessment/Plan: [] Active and Suspected Problems (Last Reviewed 05/04/18 @ 08:39 by Prasanth Pradhan MD) Gross hematuria (Acute) Overweight (Acute) MASOOD (obstructive sleep apnea) (Acute) non-compliant with CPAP Peripheral arterial disease (Suspected) Colovesical fistula (Acute) Large bowel anastomotic leak (Acute) Sepsis associated hypotension (Acute) Hypotension with recent abd surgeries for colovesicular fistula on 05/03 and anastamotic leak on 05/13 - bcx and ucx sent. Rising wbc and worsened hypotension, but clinically feeling about the same. Recommended adding iv vanc to the meropenem and checking CT abd/pelvis. If wbc continues to rise with negative work-up, would check cdiff. Having some ostomy output, no blood per nursing. Will follow, thank you, d/w Dr. Garcia and Dr. Woo.
[2018-05-17] MEDS: Cosyntropin 0.25 MG Vial IV (12:57)
--- NOTE | 2018-05-17 13:11 | PCM.PN.HOSP ---
Patient Problems: Active and Suspected Problems (Last Reviewed 05/04/18 @ 08:39 by Prasanth Pradhan MD) Gross hematuria (Acute) Overweight (Acute) MASOOD (obstructive sleep apnea) (Acute) non-compliant with CPAP Peripheral arterial disease (Suspected) Colovesical fistula (Acute) Large bowel anastomotic leak (Acute) Sepsis associated hypotension (Acute) Subjective: Overall clinical assessment shows worsening of blood pressure, systolic in 70s, heart rate in 100s, no fever, pulse ox 92 on 8 L of oxygen. INR is 7.8. Leukocytosis with left shift. Patient had urine output 210 since 12 midnight with concern for oliguria. Yesterday urine output 1500+ balance of 436 mL. Patient is not tachypneic. Patient states he had a good sleep last night. Overall colostomy is functioning with liquid stool and gas. Slight bleeding from the packing site and wound. Discussed with the wound care nurse Manuela and picture of the wound reviewed. Main abdominal incision wound has retention suture with inferior end has fatty necrosis, but is therefore many days. Slight oozing from the colostomy site on 05/16/2018 Patient was seen in the morning and then noontime Vitals/I&O's: Vital Signs Temp Pulse Resp BP Pulse Ox 97.4 F L 104 H 18 77/48 L 86 05/17/18 06:30 05/17/18 07:47 05/17/18 06:30 05/17/18 06:30 05/17/18 07:34 Oxygen Flow Rate (L/min) 9 Oxygen Delivery Method Nasal Cannula Weight: 243 lb 2.718 oz Body Mass Index (BMI) 29.9 Intake and Output for Last 24 Hours 05/15/18 05/16/18 05/17/18 23:59 23:59 23:59 Intake Total 1621 / 1621 1985 / 1985 345 / 345 Output Total 1150 / 1150 1550 / 1550 210 / 210 Balance 471 / 471 436 / 436 135 / 135 General: Alert, Oriented x3, Cooperative HEENT: Atraumatic, PERRLA, EOMI, Normocephalic Oral: Dry Mucosa Neck: Supple, No JVD, Negative Carotid Bruits Lungs: No rhonchi, No wheeze, No rales, Diminished - Air entry is diminished in both lung bases. Diaphragm retracted up Cardiovascular: Regular rate, Normal S1, Normal S2, No murmurs Abdomen: Bowel Sounds Present, Soft, Non Tender, Hypoactive Bowel Sounds, Distended Extremities: Edema, - - Maldonado catheter. Clear urine Musculoskeletal: Arthritic Changes Microbiology Past 72 Hours 05/12/18 17:10 Blood Culture (Wb) - Left Hand Blood Culture - Preliminary No growth in 48 hours. 05/12/18 17:05 Blood Culture (Wb) - Anticubital Left Blood Culture - Preliminary No growth in 48 hours. Laboratory Results 05/16/18 05:30: B-Natriuretic Peptide 49.9 05/17/18 05:15: WBC 23.8 H, RBC 2.81 L, Hgb 10.3 L, Hct 30.5 L, MCV 108.5 H, MCH 36.7 H, MCHC 33.8, RDW 15.2 H, RDW Differential 59.8 H, Plt Count 432, MPV 11.7, Immature Gran % (Auto) 1.200 H, Neut % (Auto) 87.6 H, Lymph % (Auto) 4.2 L, [place] % (Auto) 6.4, Eos % (Auto) 0.4, Baso % (Auto) 0.2, Absolute Neuts (auto) 20.9 H, Absolute Lymphs (auto) 0.99, Total Counted Not Reportable, Diff Path Review July05/17/18 05:15: Sodium 131 L, Potassium 3.9, Chloride 93 L, Carbon Dioxide 28.0, Anion Gap 10, BUN 44 H, Creatinine 2.15 H, Estim Creat Clear Calc 39.60, Est GFR (MDRD) Af Amer 40 L, Est GFR (MDRD) Non-Af 33 L, BUN/Creatinine Ratio 20.5 H, Glucose 107 H, Calcium 7.6 L 05/17/18 08:13: PT 67.3 H, INR 7.8 H* Current Medications Albuterol/Ipratropium (Duoneb) 3 ml INHALATION Q4H.RT PRN PRN Reason: WHEEZING Atorvastatin Calcium (Lipitor) 40 mg PO HS COUNT INCLUDES THE [facility] Last Admin: 05/16/18 21:40 Dose: 40 mg Bisacodyl (Dulcolax) 5 mg PO DAILY PRN PRN PRN Reason: Constipation Docusate Sodium (Colace) 100 mg PO BID COUNT INCLUDES THE [facility] Last Admin: 05/17/18 08:08 Dose: 100 mg Fentanyl Citrate (Sublimaze (100mcg Ampule)) 25 mcg IV Q4H PRN PRN Reason: PAIN Last Admin: 05/14/18 20:50 Dose: 25 mcg Gabapentin (Neurontin) 300 mg PO TIDCM COUNT INCLUDES THE [facility] Last Admin: 05/17/18 08:08 Dose: 300 mg Meropenem 1 gm/ Sodium (Chloride) 120 mls @ 33 mls/hr IV Q8 COUNT INCLUDES THE [facility] Last Admin: 05/17/18 05:43 Dose: 33 mls/hr Magnesium Hydroxide (Milk Of Magnesia) 30 ml PO DAILY PRN PRN Reason: Constipation Magnesium Oxide (Mag-Ox 400) 400 mg PO DAILY COUNT INCLUDES THE [facility] Last Admin: 05/17/18 08:08 Dose: 400 mg Nutritional Formula (Lactose Free) (Ensure Clear) 120 ml PO TIDCM COUNT INCLUDES THE [facility] Last Admin: 05/17/18 08:03 Dose: Not Given Ondansetron HCl (Zofran) 4 mg IV Q6H PRN PRN PRN Reason: Nausea Last Admin: 05/16/18 04:56 Dose: 4 mg Oxycodone HCl (Oxyir) 5 mg PO Q4H PRN PRN PRN Reason: Moderate Pain (pain scale 4-5) Last Admin: 05/16/18 10:03 Dose: 5 mg Potassium Chloride (K-Dur) 10 meq PO DAILY COUNT INCLUDES THE [facility] Last Admin: 05/17/18 08:08 Dose: 10 meq Psyllium Hydrophilic Mucilloid (Metamucil) 1 packet PO DAILY PRN PRN PRN Reason: CONSTIPATION Sodium Chloride () 5 - 15 ml IV UD PRN PRN Reason: SALINE FLUSH Last Admin: 05/17/18 05:18 Dose: 10 ml Sodium Hypochlorite (Dakins Solution 0.25% (1/2 Strength)) 1 applic TOPICAL BID COUNT INCLUDES THE [facility]; Protocol Last Admin: 05/16/18 21:40 Dose: 1 applicatio Warfarin Sodium (Coumadin (Pbkc)) 5 mg PO DAILY@1700 COUNT INCLUDES THE [facility] Last Admin: 05/16/18 17:48 Dose: 5 mg Medical Necessity - Tobacco Use Smoking Status: Current every day smoker Tobacco Use: Cigarettes Assessment/Plan All Active Problems (Last Reviewed 05/04/18 @ 08:39 by Prasanth Pradhan MD) Gross hematuria (Acute) Overweight (Acute) MASOOD (obstructive sleep apnea) (Acute) Colovesical fistula (Acute) Large bowel anastomotic leak (Acute) Sepsis associated hypotension (Acute) 62-year-old male with past medical history of hypertension, CAD, dilated cardiomyopathy, EF 30%, nicotine dependence who was admitted on 05/02/[address] abdomen and pelvis without contrast showed 8.7 x 8.3 single large mass in the base of the bladder with marked urinary bladder distention air-fluid level was seen in bladder along with colonic diverticulosis which raised the suspicion of colovesical fistula. Further workup for hematuria including cystoscopy revealed large bladder stone for which cystolitholaplaxy, extraction of blood clots and stone fragments was done on 05/03/2018. Patient had sigmoid colon resection and repair of colovesical fistula on 05/03/2018. Subsequently it was complicated with anastomotic leak and patient had exploratory laparotomy and creation of the end colostomy on 05/13/2018 1. Septic shock due to anastomotic leak and intraabdominal abscess. Overall patient clinical status deteriorated since yesterday and patient is being transferred back to ICU. Discussed with drapery seamstress, surgeon, wound nurse. ID consult. MRSA nasal screen ordered. Patient is on IV meropenem. Vancomycin is added. MRSA nasal screen came out negative Leukocytosis, coagulopathy, oliguric and acute kidney injury. Hypotension. On IV fluid normal saline 1 L bolus s/p exploratory laparotomy with diverting colostomy ID consult reviewed and appreciated CT abdomen with oral contrast is ordered. 2. LLE DVT: developed after surgery. Coagulopathic Coumadin discontinued 3. Colovesical fistula s/p colectomy complicated by anastomotic leak and intra-abdominal abscess exploratory laparotomy for anastomotic leak with end-colostomy placement. general surgery on board 4. Acute hypoxic respiratory failure On 8 L of oxygen continue breathing treatments; continue oxygen to maintain sats>92% 5. Gross hematuria: resolved. Maldonado catheter in place. to follow up with urology on outpatient basis 6. Possible gout: foot pain is better.Will monitor 7. CAD and ischemic cardiomyopathy has known EF of 30% has a history of left atrial appendage thrombus. cardiology on board Beta-blockers, Lasix and lisinopril on hold on account of hypotension Hold antihypertensive medications until blood pressure recovers 8. Hypertension: Carvedilol, lisinopril held on account of hypotension. 9. A. fib: Heart rate 110s 10. MASOOD: Noncompliant with CPAP. DVT prophylaxis: Coagulopathic. Bilateral SCDs. The patient is being transferred to ICU. Total time spent more than 40 minutes in in taking care of patient and discussion with consultants, surgeon, drapery seamstress and ID Code Visit Inpatient E&M: 79762 Subs Hosp L3
[2018-05-17 13:19] LABS: Pathologist Review Reviewed
--- NOTE | 2018-05-17 17:11 | PCM.PN.SRG ---
Patient Problems: Active and Suspected Problems (Last Reviewed 05/04/18 @ 08:39 by Prasanth Pradhan MD) Gross hematuria (Acute) Overweight (Acute) MASOOD (obstructive sleep apnea) (Acute) non-compliant with CPAP Peripheral arterial disease (Suspected) Colovesical fistula (Acute) Large bowel anastomotic leak (Acute) Sepsis associated hypotension (Acute) Subjective: Patient is now in the intensive care unit. He is awake alert and he is not complaining of abdominal pain. He has liquid stool coming out of his ostomy. Infectious disease has added vancomycin. A CAT scan with oral contrast only has been obtained which shows a dilated stomach and probable free air in the abdomen. It also shows some fluid around the liver itself. But I cannot see any contrast in this fluid. Patient's INR is 7.8 Objective: Abdomen is distended tympanitic there are no rebound guarding or peritoneal signs identified. And the patient does not wince or complain of pain unless you are palpating his incision. Patient has had significant amount of liquid stool coming out of his ostomy. - Physical Exam Vital Signs Temp Pulse Resp BP Pulse Ox 97.4 F L 97 20 H 92/54 L 92 05/17/18 06:30 05/17/18 16:20 05/17/18 16:20 05/17/18 16:20 05/17/18 16:05 Oxygen Flow Rate (L/min) 12 Oxygen Delivery Method Nasal Cannula Weight: 243 lb 2.718 oz Body Mass Index (BMI) 29.9 Intake and Output for Last 24 Hours 05/15/18 05/16/18 05/17/18 23:59 23:59 23:59 Intake Total 1621 / 1621 1985 / 1985 345 / 345 Output Total 1150 / 1150 1550 / 1550 635 / 635 Balance 471 / 471 436 / 436 -290 / -290 Microbiology Past 72 Hours 05/12/18 17:10 Blood Culture - Preliminary Blood Culture (Wb) - Left Hand No growth in 48 hours. 05/12/18 17:05 Blood Culture - Preliminary Blood Culture (Wb) - Anticubital Left No growth in 48 hours. Laboratory Tests Past 24 Hrs 05/17/18 05/17/18 05/17/18 05:15 05:15 08:13 WBC 23.8 H RBC 2.81 L Hgb 10.3 L Hct 30.5 L MCV 108.5 H MCH 36.7 H MCHC 33.8 RDW 15.2 H RDW Differential 59.8 H Plt Count 432 MPV 11.7 Immature Gran % (Auto) 1.200 H Neut % (Auto) 87.6 H Lymph % (Auto) 4.2 L Riley % (Auto) 6.4 Eos % (Auto) 0.4 Baso % (Auto) 0.2 Absolute Neuts (auto) 20.9 H Absolute Lymphs (auto) 0.99 Total Counted Not Reportable Diff Path Review Reviewed PT 67.3 H INR 7.8 H* Sodium 131 L Potassium 3.9 Chloride 93 L Carbon Dioxide 28.0 Anion Gap 10 BUN 44 H Creatinine 2.15 H Estim Creat Clear Calc 39.60 Est GFR (MDRD) Af Amer 40 L Est GFR (MDRD) Non-Af 33 L BUN/Creatinine Ratio 20.5 H Glucose 107 H Lactic Acid Calcium 7.6 L Cortisol MRSA (PCR) Blood Type Antibody Screen 05/17/18 05/17/18 05/17/18 09:50 10:05 12:50 WBC RBC Hgb Hct MCV MCH MCHC RDW RDW Differential Plt Count MPV Immature Gran % (Auto) Neut % (Auto) Lymph % (Auto) Riley % (Auto) Eos % (Auto) Baso % (Auto) Absolute Neuts (auto) Absolute Lymphs (auto) Total Counted Diff Path Review PT INR Sodium Potassium Chloride Carbon Dioxide Anion Gap BUN Creatinine Estim Creat Clear Calc Est GFR (MDRD) Af Amer Est GFR (MDRD) Non-Af BUN/Creatinine Ratio Glucose Lactic Acid 1.4 Calcium Cortisol 43.20 H MRSA (PCR) Negative Blood Type Antibody Screen 05/17/18 05/17/18 05/17/18 13:00 14:00 17:00 WBC RBC Hgb Hct MCV MCH MCHC RDW RDW Differential Plt Count MPV Immature Gran % (Auto) Neut % (Auto) Lymph % (Auto) Riley % (Auto) Eos % (Auto) Baso % (Auto) Absolute Neuts (auto) Absolute Lymphs (auto) Total Counted Diff Path Review PT INR Sodium Potassium Chloride Carbon Dioxide Anion Gap BUN Creatinine Estim Creat Clear Calc Est GFR (MDRD) Af Amer Est GFR (MDRD) Non-Af BUN/Creatinine Ratio Glucose Lactic Acid Calcium Cortisol 49.50 H 60.60 H MRSA (PCR) Blood Type Pending Antibody Screen Pending Medical Necessity - Tobacco Use Smoking Status: Current every day smoker Tobacco Use: Cigarettes Assessment/Plan All Active Problems (Last Reviewed 05/04/18 @ 08:39 by Prasanth Pradhan MD) Gross hematuria (Acute) Overweight (Acute) MASOOD (obstructive sleep apnea) (Acute) Colovesical fistula (Acute) Large bowel anastomotic leak (Acute) Sepsis associated hypotension (Acute) I am going to wait for the final read on the CAT scan of his abdomen. I am going to give him initially 6 units of FFP to see if I can bring his INR back down to a normal range. Once that is completed I am going to place an NG tube in him. He certainly is behaving like a septic and he could quite possibly have a perforated stress ulcer. But if he did I would have anticipated him to have more discomfort than he is currently experiencing. It is quite possible that I am going to have to take him back to surgery tonight to reevaluate him.
[2018-05-17] MEDS: Ipratropium/Albuterol Sulfate 3 ML AMPUL.NEB INHALATION (18:50)
--- NOTE | 2018-05-17 20:30 | PCM.PN.BLA ---
Progress Note This is a 62-year-old white male who presented to [facility] on May 04, 2018 with gross hematuria. He has a known history of cardiomyopathy with an ejection fraction of 30% A. fib on chronic Coumadin therapy moderate aortic stenosis biatrial enlargement and moderate pulmonary hypertension. He was subsequently reversed with FFP and vitamin K and underwent a cystoscopy by Dr. Kam who found a colovesical fistula. I subsequently did a colonoscopy on him which only showed diverticular disease. On May 07, 2018 the patient underwent a sigmoid resection with an end-to-end anastomosis. It was noted to be airtight and I checked it 4 times. Postoperatively he started to have stools but subsequently got septic on postoperative day 6 a CAT scan of the abdomen and pelvis with rectal contrast revealed a an anastomotic leak. On May 13, 2018 the patient went back to surgery for his anastomotic leak and underwent a Skyler's procedure. The rectal stump was left open and a drain was placed in the pelvis. He tolerated this procedure well and on subsequent postoperative day #4 began to develop increases in his white count tachycardia and hypotension. He subsequently was transferred to the intensive care unit. Today the patient was noted to have an INR of 7.8 his creatinine went up from 1.14-2.15 his white blood cell count went up from 19.7-23.8. He is currently on 15 mics of levo fed and 0.4 units/min of vasopressin. His most recent set of vitals temp of 97 7 pulse 97 blood pressure is 118/61 respiratory rate of 25 and a satting at 90% on 12 L nasal cannula. The patient subsequently went to the CAT scan where he was noted to have a dilated stomach and a significant amount of free air. He had some bite lateral atelectasis some fluid around the liver and no signs of any abscess within the abdomen and the pelvis did not show any signs of abscess. I have correcting his INR with 10 mg of vitamin K IV 6 units of FFP. His current INR is 1.9. A repeat white count shows the WBCs to be 20,000 his hemoglobin to be 8.7 platelets at 421,000. His potassium is low at 3.2, his lactic acid level is 1.2. I placed an NG tube in and repeated a CT scan with oral contrast. I do not have the official read but this looks suspicious for a perforated duodenal ulcer. He is now starting to complain of some abdominal pain. I am in the process of replacing his potassium I have ordered 2 units of blood. I am going to take the patient to the OR and perform an exploratory laparoscopy probable laparotomy. I have discussed this case in great detail with the patient he is alert and oriented. His risk include bleeding infection. He is aware that he will be intubated throughout the night. He is also aware that he has had a significant cardiac risk for mortality. He is willing to proceed.
--- NOTE | 2018-05-17 20:34 | PN_ITS ---
Progress Note This is a 62-year-old white male who [facility] with gross hematuria. He has a known history of c ardiomyopathy with an ejection fraction of 30% A. fib on chronic Coumadin therapy moderate aortic stenosis biatrial enlargement and moderate pulmonary hypertension. He was subsequently reversed with FFP and vitamin K and underwent a cystoscopy by Dr. Kam who found a colovesical fistula. I subsequently did a colonoscopy on him which only showed diverticular disease. On May 07, 2018 the patient underwent a sigmoid resection with an end-to-end anastomosis. It was noted to be airtight and I checked it 4 times. Postoperatively he started to have stools but subsequently got septic on po stoperative day 6 a CAT scan of the abdomen and pelvis with rectal contrast revealed a an anastomotic leak. On May 13, 2018 the patient went back to surgery for his anastomotic leak and underwent a Skyler's procedure. The rectal stump was left open and a drain was placed in the pelvis. He tolerated this procedure well and on subsequent postoperative day #4 began to develop increases in his white count tachycardia and hypotension. He subsequently was transferred to the intensive care unit. Today the patient was noted to have an INR of 7.8 his creatinine went up from 1.14-2.15 his white blood cell count went up from 19.7-23.8. He is currently on 15 mics of levo fed and 0.4 units/min of vasopressin. His most recent set of vitals temp of 97 7 pulse 97 blood pressure is 118/61 respiratory rate of 25 and a satting at 90% on 12 L nasal cannula. The patient subsequently went to the CAT scan where he was noted to have a dilated stomach and a significant amount of free air. He had some bite lateral atelectasis some fluid around the liver and no signs of any abscess within the abdomen and the pelvis did not show any signs of abscess. I have correcting his INR with 10 mg of vitamin K IV 6 units of FFP. His current INR is 1.9. A repeat white count shows the WBCs to be 20,000 his hemoglobin to be 8.7 platelets at 421,000. His potassium is low at 3.2, his lactic acid level is 1.2. I placed an NG tube in and repeated a CT scan with oral contrast. I do not have the official read but this looks suspicious for a perforated duodenal ulcer. He is now starting to complain of some abdominal pain. I am in the process of replacing his potassium I have ordered 2 units of blood. I am going to take the patient to the OR and perform an exploratory laparoscopy probable laparotomy. I have discussed this case in great detail with the patient he is alert and oriented. His risk include bleeding infection. He is aware that he will be intubated throughout the night. He is also aware that he has had a significant cardiac risk for mortality. He is willing to proceed.
[2018-05-17] MEDS: Atorvastatin Calcium 40 MG Tablet PO (20:59)
[2018-05-17 21:39] LABS: Absolute Lymphocyte Count 0.47 X10^3/ul (0.83-4.51); Absolute Neutrophil Count 18.2 X10^3/uL (2.0-7.7); Basophil# 0.02 X10^3/uL; Basophil% 0.1 % (0-1); Eosinophil# 0.01 X10^3/uL; Hematocrit 25.4 % (40-54); Hemoglobin 8.7 g/dl (13.0-16.5); Lymphocyte # 0.47 X10^3/ul (4.0); Lymphocyte % 2.3 % (19-41); Mean Corp Hgb Conc 34.3 g/gl (32-36); Mean Corpuscular Hgb 36.4 pg (27.0-32.0); Mean Corpuscular Volume 106.3 fL (80-94); Monocyte% 5.9 % (0-10); Neutrophil % 90.4 % (47-70); Platelet Count 421 K/mm3 (150-450); RBC Distribution Width CV 15.2 % (11.6-14.6); RBC Distribution Width SD 58.7 fl (35.1-43.9); Red Blood Count 2.39 M/mm3 (4.6-6.2); White Blood Count 20.2 K/mm3 (4.4-11.0)
[2018-05-17 21:40] LABS: Differential Indicated SCAN CRITERIA MET; International Normalized Ratio 1.9; POSITIVE COUNT NO; POSITIVE DIFFERENTIAL YES; POSITIVE MORPHOLOGY YES; Prothrombin Time (Protime)PT. 21.7 SECONDS (11.7-14.9)
[2018-05-17 21:44] LABS: ALB/GLOB Ratio 0.6 RATIO (0.9-2.4); AST(SGOT) 69 U/L (15-37); Alanine Aminotransfer ALT/SGPT 35 U/L (16-61); Albumin, Serum 2.2 g/dL (3.2-5.0); Alkaline Phosphatase 90 U/L (45-117); Anion Gap 12 (5-15); BUN 47 mg/dL (7-18); BUN/Creat Ratio 28.8 RATIO (10-20); Calcium,Total 7.5 mg/dL (8.5-10.1); Chloride 93 mmol/L (98-107); Creatinine, Serum 1.63 mg/dL (0.70-1.30); EST Glomerular Filtration Rate 46 mL/min (>60); Est Glom Filt Rate - Afr Amer 56 mL/min (>60); Estimated Creatinine Clearance 52.24 ml/min; Globulin 3.7 g/dL (2.2-4.2); Glucose 149 mg/dL (74-106); Potassium 3.2 mmol/L (3.5-5.1); Protein, Total 5.9 g/dL (6.4-8.2); Sodium Level 134 mmol/L (136-145)
[2018-05-17 21:57] LABS: Anisocytosis 2+; Hypochromasia 2+; Platelet Estimate SLT INC (ADEQ)
[2018-05-17 21:58] LABS: Macrocytosis 2+; Toxic Granulation RARE
[2018-05-17 22:09] LABS: Phosphorus 5.1 mg/dL (2.5-4.9)
[2018-05-17 22:33] LABS: Lactic Acid 1.2 mmol/L (0.4-2.0)
--- NOTE | 2018-05-17 22:56 | RAD_ITS ---
STUDY: X-RAY - ABDOMEN/PELVIS REASON FOR EXAM: Male, 62 years old. An NG tube placement. TECHNIQUE: AP view. COMPARISON: 05/17/2018, 4:00 PM. FINDINGS: Normal visualized lung bases. Nasogastric tube is identified in the left upper quadrant, crossing the midline and terminating on the right. Position is consistent with termination in the gastric antrum. There is extensive gas in the upper abdomen consistent with pneumoperitoneum as seen on the prior CT abdomen. Mild degenerative changes of the spine are noted. RAD/Abdomen Single View (Portable) IMPRESSION: NG tube terminates in the gastric antrum. Electronically Signed: Aleena Mayorga MD at 23:58 EST Tel , Service support ,
--- NOTE | 2018-05-17 22:59 | CT_ITS ---
We are attempting to reach Prasanth Pradhan MD to discuss findings. An addendum with communication details will be sent when the communication is complete. HISTORY: POSSIBLE OBSTRUCTION, GROSS HEMATURIA TECHNIQUE: Helically acquired images were obtained of the abdomen and pelvis oral and without IV contrast. A radiation dose optimization technique was used for this scan. COMPARISON: CT abdomen pelvis 4:07 PM same date. FINDINGS: # of images incl. paperwork: [phone] Large amount of free intraperitoneal air and moderate free fluid similar to prior. Enteric contrast has reached the distal ileum. No extraluminal enteric contrast is evident. Pneumatosis of the ascending colon. Foci of extraluminal air and surrounding extraluminal fluid. Enteric contrast has not yet reached this portion of the bowel. Anterior abdominal wall incision, drainage catheter in the lower abdomen via right lower quadrant approach, left colectomy with left lower quadrant colostomy again demonstrated. No evidence of bowel obstruction. Slight interval worsening of atelectatic changes in the lung bases. Small pleural effusions. Mild four-chamber cardiomegaly and atherosclerosis, 3.1 cm abdominal aortic aneurysm, again demonstrated. No acute interval change of the liver, gallbladder, pancreas, spleen, adrenal glands, or kidneys. Urinary bladder decompressed with Maldonado catheter, contains a small amount of air. Anasarca, bilateral inguinal hernias containing fat but no bowel again demonstrated. No acute osseous abnormality. Left femoral head AVN, degenerative changes lumbar spine again demonstrated. CT/Abdomen/Pel W ORAL Cont Only IMPRESSION: Large amount of free intraperitoneal air and moderate free fluid similar to previous. As noted on the prior study, this is more than is normally seen postoperatively and is concerning for bowel perforation or perhaps wound dehiscence. No extraluminal enteric contrast identified. However there is pneumatosis and wall thickening of the ascending colon with immediately adjacent foci of extraluminal air; suspicious for perforation here. Enteric contrast has not yet reached this loop of bowel. Slight interval worsening of bibasal atelectasis versus pneumonia. Several other chronic findings as above similar to prior. Individualized dose optimization techniques were used for this CT. at 0042 Reported and signed by: Jason Goins MD Electronically Signed: Jason Goins, at 0:40 EST Tel , Service support ,
[2018-05-17] MEDS: 0.9% Normal Saline 1,000 ML 999 ML IV (23:00)
[2018-05-17] MEDS: Potassium Chloride 20mEq/100mL 20 MEQ/100 ML IV.SOLN. 100 MEQ IV BOLUS (23:45)
[2018-05-17] MEDS: Lactated Ringers 1,000 ML 150 ML IV (23:45)
[2018-05-18] VITALS (89 sets, daily range): BP systolic 72–126; BP diastolic 49–76; PULSE 85–125; RESP 12–94; TEMP 36.2–36.7; O2SAT 12–95
--- NOTE | 2018-05-18 01:56 | NURSING ---
Pt taken to surgery at this time, by RN and anesthesia. Surgery will be with Dr. Pradhan.
[2018-05-18] MEDS: Bupivacaine 0.25% 30 ML Vial (02:30)
--- NOTE | 2018-05-18 03:59 | PCM.OPRPT ---
Problem List (1) Sepsis associated hypotension Status: Acute (2) Perforated viscus Status: Acute Report of Operation Date of Procedure: 05/18/18 Pre-Operative Diagnosis: 1. Perforated viscus. 2. Sepsis Post-Operative Diagnosis: Same Surgery/Procedure Performed:: 1. Exploratory laparoscopy. 2. Exploratory laparotomy. 3. Repair of perforated jejunum Type of Anesthesia:: General Anesthesiologist: Jaron Wilkes Specimen's removed: none Drains: Two 15 round Malachi-Olivia drains Estimated Blood Loss (mL): 25 cc Fluids Replaced: 800 cc Description of Procedure: Patient was brought into the operating room and placed in the supine position. Under excellent general trach intubation abdomen was sterilely prepped and draped in usual fashion. I injected local in a previous trocar site use a Visiport to gain access into the intra-abdominal cavity without difficulty. Significant amount of green fluid was found it was not foul-smelling. My differential for this was possible perforated duodenal or gastric ulcer versus cecal colitis with microperforation versus small bowel injury. As I started to irrigate and gently move the small bowel I encountered a hole in the small intestine I converted from laparoscopic to an open laparotomy. Identified the hole, it is difficult to say if I caused the injury during this procedure or if this was an injury that happened during the second procedure. Nevertheless I still closed this with interrupted 3-0 silk's. The small bowel itself was not significantly edematous here. I mobilized all the small intestine around the small intestine from the ligament of Treitz all the way to the terminal ileum no other injuries were identified no other perforations were felt or seen. I then mobilized the right colon using the LigaSure impact. I had excellent hemostasis appendix appeared normal the cecum also look normal all the way up to the hepatic flexure. The colon felt as if it was in contact with infection as opposed to itself being infected. There is no darkness to it nothing was black. I mobilized it further medially gallbladder felt normal looked normal I palpated the duodenum and identified the duodenal bulb and first and second and third portions of the duodenum all of this look normal there was no enteric contents in any of these planes. I irrigated above the liver took a lot of proteinaceous material as well as green fluid out. I then went to the left upper quadrant irrigated similar proteinaceous material and green fluid was irrigated I inspected the transverse colon going down to the colostomy all of this look viable I inspected the pelvis I do not see any signs of abscess formation. Once this was done I called in my partner Dr. Suarez. We once again ran the small bowel, inspected the pelvis, inspected above the liver duodenum and gallbladder we found no other holes or fluid leaving any viscus. I placed a 15 round Malachi-Olivia drain in the right upper quadrant next to the duodenum and gallbladder and over to the lesser curvature the stomach. It was sutured in place with a 3-0 nylon. We irrigated again with 4 liters of warm irrigation it all came back clear small bowel was placed back into its normal anatomic positions as well as the cecum. We obtained an accurate needle and sponge count x2. I placed #2 Ethibond retention sutures in the upper incision 3 of them were used. I closed the fascia with #1 PDS and we tied the Ethibond retention sutures over rubber bumpers. I packed the wound all the way from the pelvis up to the xiphoid process with normal saline soaked Kerlix. - Admit VTE Documentation VTE Present on Admission: No VTE Mechan Device Prophylaxis: None VTE Pharm Prophylaxis ordered?: No Reason prophylaxis not ordered:: Treatment Not Indicated
--- NOTE | 2018-05-18 04:38 | RAD_ITS ---
STUDY: X-RAY CHEST REASON FOR EXAM: Male, 62 years old. ET tube placement. Respiratory distress TECHNIQUE: Single AP portable view of the chest. COMPARISON: None. FINDINGS: Central venous line is seen on the right side its tip is at the lower part of the superior vena cava. Endotracheal tube is seen its tip is 4 cm superior to the lorenzo. An NG tube is seen its tip is below the diaphragm is in good position. Compressive atelectasis in the right and left lung lower lobes. Small bilateral pleural effusions. Normal size heart. Normal mediastinum and alec. Normal visualized pulmonary arteries. Normal visualized aortic arch and descending thoracic aorta. Normal visualized thoracic spine. Normal visualized ribs, clavicles, and shoulders. There is no demonstrated abnormality of the visualized soft tissue structures of the upper abdomen. RAD/Chest 1 View (Portable) IMPRESSION: Compressive atelectasis in the right and left lung lower lobes. Small bilateral pleural effusions. Electronically Signed: Constanza Archer, at 7:53 EST Tel , Service support ,
[2018-05-18] MEDS: fentaNYL drip 100 ML 5 MCG IV ×2 (04:45→23:49)
[2018-05-18] MEDS: Propofol 10MG/Ml 1,000 MG/100 ML Bottle 6.618 MG CONT INF (04:45)
[2018-05-18 05:01] LABS: Base Excess -2 mmol/L (-2 to +2); Bicarbonate 23.8 mmol/L (22-26); Blood Gas Specimen Type ALINE; FI02 60; Mode A-C; O2 Delivery Device Vent; PEEP 5; PO2 56 mmHG (75-100); RR 12; SITE R Radial; SO2 86 % (95-99); Time Given 449; Total Carbon Dioxide 25 mmol/L; Vt 600; pCO2 46.9 mmHg (35-45); pH 7.31 (7.35-7.45)
[2018-05-18 05:31] LABS: ALB/GLOB Ratio 0.5 RATIO (0.9-2.4); AST(SGOT) 77 U/L (15-37); Alanine Aminotransfer ALT/SGPT 31 U/L (16-61); Albumin, Serum 1.7 g/dL (3.2-5.0); Alkaline Phosphatase 88 U/L (45-117); Anion Gap 11 (5-15); BUN 44 mg/dL (7-18); BUN/Creat Ratio 32.6 RATIO (10-20); Calcium,Total 6.9 mg/dL (8.5-10.1); Chloride 99 mmol/L (98-107); Creatinine, Serum 1.35 mg/dL (0.70-1.30); EST Glomerular Filtration Rate 57 mL/min (>60); Est Glom Filt Rate - Afr Amer 69 mL/min (>60); Estimated Creatinine Clearance 63.07 ml/min; Globulin 3.2 g/dL (2.2-4.2); Glucose 123 mg/dL (74-106); Magnesium 2.8 mg/dL (1.6-2.6); Phosphorus 5.1 mg/dL (2.5-4.9); Potassium 3.4 mmol/L (3.5-5.1); Protein, Total 4.9 g/dL (6.4-8.2); Sodium Level 135 mmol/L (136-145)
[2018-05-18 05:33] LABS: Lactic Acid 1.7 mmol/L (0.4-2.0)
[2018-05-18 05:44] LABS: International Normalized Ratio 1.6; Prothrombin Time (Protime)PT. 18.6 SECONDS (11.7-14.9)
[2018-05-18 05:46] LABS: Absolute Lymphocyte Count 0.64 X10^3/ul (0.83-4.51); Absolute Neutrophil Count 13.9 X10^3/uL (2.0-7.7); Basophil# 0.04 X10^3/uL; Basophil% 0.2 % (0-1); Differential Indicated SCAN CRITERIA MET; Eosinophil# 0.03 X10^3/uL; Eosinophils% 0.2 % (0-5); Hematocrit 33.5 % (40-54); Hemoglobin 11.2 g/dl (13.0-16.5); Lymphocyte # 0.64 X10^3/ul (4.0); Lymphocyte % 3.9 % (19-41); Mean Corp Hgb Conc 33.4 g/gl (32-36); Mean Corpuscular Hgb 34.7 pg (27.0-32.0); Mean Corpuscular Volume 103.7 fL (80-94); Mean Platelet Vol. 11.4 fl (6.2-12.0); Monocyte# 1.39 X10^3/uL; Monocyte% 8.5 % (0-10); Neutrophil % 85.3 % (47-70); POSITIVE COUNT NO; POSITIVE DIFFERENTIAL NO; POSITIVE MORPHOLOGY YES; Platelet Count 452 K/mm3 (150-450); RBC Distribution Width CV 18.1 % (11.6-14.6); RBC Distribution Width SD 68.9 fl (35.1-43.9); Red Blood Count 3.23 M/mm3 (4.6-6.2); White Blood Count 16.3 K/mm3 (4.4-11.0)
[2018-05-18 05:54] LABS: CPK Total, Creatine Kinase 171 U/L (39-308); Triglycerides 80 mg/dL
[2018-05-18 06:19] LABS: Toxic Granulation 2+
[2018-05-18 06:20] LABS: Anisocytosis 1+; Crenated RBC RARE
[2018-05-18 06:21] LABS: Macrocytosis 1+
[2018-05-18 06:22] LABS: Hypochromasia 1+; Platelet Estimate SLT INC (ADEQ)
--- NOTE | 2018-05-18 06:41 | PCM.PN.INT ---
Subjective: The patient was seen and examined at the bedside this morning. Events from the last 24 hours have been reviewed. The patient is currently afebrile, but is requiring vasopressin and Levophed to maintain hemodynamic stability. The patient was taken back to the OR overnight due to free air identified on CT abdomen. The patient was identified as having a perforation in his mid jejunum, which was repaired. The patient returned to the medical intensive care unit, intubated and mechanically ventilated. His potassium is low this morning at 3.4. He currently has propofol and fentanyl for sedation. His Levophed is currently at 10 mcg. White blood cell count has improved. The patient's anticoagulation was completely reversed yesterday for surgery. He will therefore be started on a heparin drip this morning. Perioperatively, the patient has received a total of 2 units of packed red blood cells, 6 FFP and 10 of vitamin K. Objective: The patient's most recent lab work, culture data and imaging studies have all been personally reviewed. Blood and urine cultures are pending. A transesophageal echocardiogram from August 2017 revealed evidence of a moderately severe global LV systolic dysfunction with an ejection fraction of 30%. There is also evidence of moderate global RV systolic dysfunction. There was moderate aortic valve stenosis. General: - - The patient is currently intubated, sedated and mechanically ventilated. HEENT: Atraumatic, Normocephalic, Sluggish Pupils Oral: No Gingival or Mucosal Lesions/ Ulcerations, - - Endotracheal tube in place. Nasogastric tube in place. Neck: Supple, No Nodes, Trachea Midline, - - Central venous catheter remains in place. Lungs: Diminished, - - Coarse mechanical breath sounds. Cardiovascular: Normal S1, Normal S2, Irregular Rate, Tachycardic Abdomen: Distended, - - Postsurgical wound noted. Ostomy in place. RICARDO drains x2 in place Extremities: No clubbing, No cyanosis, - - Profoundly edematous Skin: - - No significant change from previous. Musculoskeletal: No Tenderness to Palpation of Joints or Extremities Lymphatic: No Cervical, Supraclavicular, or Inguinal Adenopathy Neurological: - - No focal neurological deficits. The patient is currently sedated with a RASS of -1. Vital Signs Temp Pulse Resp BP Pulse Ox 36.7 C 92 12 82/61 L 95 05/18/18 05:45 05/18/18 06:00 05/18/18 06:00 05/18/18 06:00 05/18/18 06:00 Oxygen Flow Rate (L/min) 15 Oxygen Delivery Method Mechanical Ventilator Weight: 252 lb 13.923 oz Body Mass Index (BMI) 29.9 Intake and Output for Last 24 Hours 05/16/18 05/17/18 05/18/18 23:59 23:59 23:59 Intake Total 1985 / 1985 1295 / 1295 2472.1 / 2472.1 Output Total 1550 / 1550 785 / 785 1570 / 1570 Balance 436 / 436 510 / 510 902.1 / 902.1 Labs (Last 48 Hours) 05/16/18 05/17/18 05/17/18 05:30 05:15 05:15 WBC 23.8 H RBC 2.81 L Hgb 10.3 L Hct 30.5 L MCV 108.5 H MCH 36.7 H MCHC 33.8 RDW 15.2 H RDW Differential 59.8 H Plt Count 432 MPV 11.7 Immature Gran % (Auto) 1.200 H Neut % (Auto) 87.6 H Lymph % (Auto) 4.2 L Cooke % (Auto) 6.4 Eos % (Auto) 0.4 Baso % (Auto) 0.2 Absolute Neuts (auto) 20.9 H Absolute Lymphs (auto) 0.99 Total Counted Not Reportable Differential Comment Diff Path Review Reviewed Toxic Granulation Platelet Estimate RBC Morphology Hypochromasia Anisocytosis Macrocytosis PT INR Specimen Type Sample Site pH Bicarbonate Actual POC Total CO2 Base Excess O2 Saturation O2 % ABG pCO2 ABG pO2 Rod Test Respiration Rate O2 Delivery Device Vent Mode Tidal Volume POC PEEP Blood Gas Notified Whom Blood Gas Notified Time Sodium 131 L Potassium 3.9 Chloride 93 L Carbon Dioxide 28.0 Anion Gap 10 BUN 44 H Creatinine 2.15 H Estim Creat Clear Calc 39.60 Est GFR (MDRD) Af Amer 40 L Est GFR (MDRD) Non-Af 33 L BUN/Creatinine Ratio 20.5 H Glucose 107 H Lactic Acid Calcium 7.6 L Phosphorus Magnesium Total Bilirubin AST ALT Alkaline Phosphatase Total Creatine Kinase B-Natriuretic Peptide 49.9 Total Protein Albumin Globulin Albumin/Globulin Ratio Triglycerides Cortisol MRSA (PCR) Blood Type Antibody Screen Crossmatch 05/17/18 05/17/18 05/17/18 08:13 09:50 10:05 WBC RBC Hgb Hct MCV MCH MCHC RDW RDW Differential Plt Count MPV Immature Gran % (Auto) Neut % (Auto) Lymph % (Auto) Cooke % (Auto) Eos % (Auto) Baso % (Auto) Absolute Neuts (auto) Absolute Lymphs (auto) Total Counted Differential Comment Diff Path Review Toxic Granulation Platelet Estimate RBC Morphology Hypochromasia Anisocytosis Macrocytosis PT 67.3 H INR 7.8 H* Specimen Type Sample Site pH Bicarbonate Actual POC Total CO2 Base Excess O2 Saturation O2 % ABG pCO2 ABG pO2 Rod Test Respiration Rate O2 Delivery Device Vent Mode Tidal Volume POC PEEP Blood Gas Notified Whom Blood Gas Notified Time Sodium Potassium Chloride Carbon Dioxide Anion Gap BUN Creatinine Estim Creat Clear Calc Est GFR (MDRD) Af Amer Est GFR (MDRD) Non-Af BUN/Creatinine Ratio Glucose Lactic Acid 1.4 Calcium Phosphorus Magnesium Total Bilirubin AST ALT Alkaline Phosphatase Total Creatine Kinase B-Natriuretic Peptide Total Protein Albumin Globulin Albumin/Globulin Ratio Triglycerides Cortisol MRSA (PCR) Negative Blood Type Antibody Screen Crossmatch 05/17/18 05/17/18 05/17/18 12:50 13:00 14:00 WBC RBC Hgb Hct MCV MCH MCHC RDW RDW Differential Plt Count MPV Immature Gran % (Auto) Neut % (Auto) Lymph % (Auto) Cooke % (Auto) Eos % (Auto) Baso % (Auto) Absolute Neuts (auto) Absolute Lymphs (auto) Total Counted Differential Comment Diff Path Review Toxic Granulation Platelet Estimate RBC Morphology Hypochromasia Anisocytosis Macrocytosis PT INR Specimen Type Sample Site pH Bicarbonate Actual POC Total CO2 Base Excess O2 Saturation O2 % ABG pCO2 ABG pO2 Rod Test Respiration Rate O2 Delivery Device Vent Mode Tidal Volume POC PEEP Blood Gas Notified Whom Blood Gas Notified Time Sodium Potassium Chloride Carbon Dioxide Anion Gap BUN Creatinine Estim Creat Clear Calc Est GFR (MDRD) Af Amer Est GFR (MDRD) Non-Af BUN/Creatinine Ratio Glucose Lactic Acid Calcium Phosphorus Magnesium Total Bilirubin AST ALT Alkaline Phosphatase Total Creatine Kinase B-Natriuretic Peptide Total Protein Albumin Globulin Albumin/Globulin Ratio Triglycerides Cortisol 43.20 H 49.50 H 60.60 H MRSA (PCR) Blood Type Antibody Screen Crossmatch 05/17/18 05/17/18 05/17/18 17:00 17:00 21:18 WBC 20.2 H RBC 2.39 L Hgb 8.7 L Hct 25.4 L MCV 106.3 H MCH 36.4 H MCHC 34.3 RDW 15.2 H RDW Differential 58.7 H Plt Count 421 MPV 11.0 Immature Gran % (Auto) 1.300 H Neut % (Auto) 90.4 H Lymph % (Auto) 2.3 L Cooke % (Auto) 5.9 Eos % (Auto) 0.0 Baso % (Auto) 0.1 Absolute Neuts (auto) 18.2 H Absolute Lymphs (auto) 0.47 L Total Counted Not Reportable Differential Comment SEE COMMENT Diff Path Review May foll Toxic Granulation RARE Platelet Estimate SLT INC RBC Morphology Hypochromasia 2+ Anisocytosis 2+ Macrocytosis 2+ PT INR Specimen Type Sample Site pH Bicarbonate Actual POC Total CO2 Base Excess O2 Saturation O2 % ABG pCO2 ABG pO2 Rod Test Respiration Rate O2 Delivery Device Vent Mode Tidal Volume POC PEEP Blood Gas Notified Whom Blood Gas Notified Time Sodium Potassium Chloride Carbon Dioxide Anion Gap BUN Creatinine Estim Creat Clear Calc Est GFR (MDRD) Af Amer Est GFR (MDRD) Non-Af BUN/Creatinine Ratio Glucose Lactic Acid Calcium Phosphorus Magnesium Total Bilirubin AST ALT Alkaline Phosphatase Total Creatine Kinase B-Natriuretic Peptide Total Protein Albumin Globulin Albumin/Globulin Ratio Triglycerides Cortisol MRSA (PCR) Blood Type A POSITIVE Antibody Screen NEGATIVE Crossmatch See Detail 05/17/18 05/17/18 05/17/18 21:18 21:18 21:18 WBC RBC Hgb Hct MCV MCH MCHC RDW RDW Differential Plt Count MPV Immature Gran % (Auto) Neut % (Auto) Lymph % (Auto) Cooke % (Auto) Eos % (Auto) Baso % (Auto) Absolute Neuts (auto) Absolute Lymphs (auto) Total Counted Differential Comment Diff Path Review Toxic Granulation Platelet Estimate RBC Morphology Hypochromasia Anisocytosis Macrocytosis PT 21.7 H INR 1.9 Specimen Type Sample Site pH Bicarbonate Actual POC Total CO2 Base Excess O2 Saturation O2 % ABG pCO2 ABG pO2 Rod Test Respiration Rate O2 Delivery Device Vent Mode Tidal Volume POC PEEP Blood Gas Notified Whom Blood Gas Notified Time Sodium 134 L Potassium 3.2 L Chloride 93 L Carbon Dioxide 29.0 Anion Gap 12 BUN 47 H Creatinine 1.63 H Estim Creat Clear Calc 52.24 Est GFR (MDRD) Af Amer 56 L Est GFR (MDRD) Non-Af 46 L BUN/Creatinine Ratio 28.8 H Glucose 149 H Lactic Acid Calcium 7.5 L Phosphorus 5.1 H Magnesium 3.0 H Total Bilirubin 1.30 H AST 69 H ALT 35 Alkaline Phosphatase 90 Total Creatine Kinase B-Natriuretic Peptide Total Protein 5.9 L Albumin 2.2 L Globulin 3.7 Albumin/Globulin Ratio 0.6 L Triglycerides Cortisol MRSA (PCR) Blood Type Antibody Screen Crossmatch 05/17/18 05/18/18 05/18/18 22:02 04:50 04:50 WBC 16.3 H RBC 3.23 L Hgb 11.2 L Hct 33.5 L MCV 103.7 H MCH 34.7 H MCHC 33.4 RDW 18.1 H RDW Differential 68.9 H Plt Count 452 H MPV 11.4 Immature Gran % (Auto) 1.900 H Neut % (Auto) 85.3 H Lymph % (Auto) 3.9 L Cooke % (Auto) 8.5 Eos % (Auto) 0.2 Baso % (Auto) 0.2 Absolute Neuts (auto) 13.9 H Absolute Lymphs (auto) 0.64 L Total Counted Not Reportable Differential Comment Diff Path Review Toxic Granulation 2+ Platelet Estimate SLT INC RBC Morphology RARE Hypochromasia 1+ Anisocytosis 1+ Macrocytosis 1+ PT 18.6 H INR 1.6 Specimen Type Sample Site pH Bicarbonate Actual POC Total CO2 Base Excess O2 Saturation O2 % ABG pCO2 ABG pO2 Rod Test Respiration Rate O2 Delivery Device Vent Mode Tidal Volume POC PEEP Blood Gas Notified Whom Blood Gas Notified Time Sodium Potassium Chloride Carbon Dioxide Anion Gap BUN Creatinine Estim Creat Clear Calc Est GFR (MDRD) Af Amer Est GFR (MDRD) Non-Af BUN/Creatinine Ratio Glucose Lactic Acid 1.2 Calcium Phosphorus Magnesium Total Bilirubin AST ALT Alkaline Phosphatase Total Creatine Kinase B-Natriuretic Peptide Total Protein Albumin Globulin Albumin/Globulin Ratio Triglycerides Cortisol MRSA (PCR) Blood Type Antibody Screen Crossmatch 05/18/18 05/18/18 05/18/18 04:50 04:50 04:50 WBC RBC Hgb Hct MCV MCH MCHC RDW RDW Differential Plt Count MPV Immature Gran % (Auto) Neut % (Auto) Lymph % (Auto) Cooke % (Auto) Eos % (Auto) Baso % (Auto) Absolute Neuts (auto) Absolute Lymphs (auto) Total Counted Differential Comment Diff Path Review Toxic Granulation Platelet Estimate RBC Morphology Hypochromasia Anisocytosis Macrocytosis PT INR Specimen Type Sample Site pH Bicarbonate Actual POC Total CO2 Base Excess O2 Saturation O2 % ABG pCO2 ABG pO2 Rod Test Respiration Rate O2 Delivery Device Vent Mode Tidal Volume POC PEEP Blood Gas Notified Whom Blood Gas Notified Time Sodium 135 L Potassium 3.4 L Chloride 99 Carbon Dioxide 25.0 Anion Gap 11 BUN 44 H Creatinine 1.35 H Estim Creat Clear Calc 63.07 Est GFR (MDRD) Af Amer 69 Est GFR (MDRD) Non-Af 57 L BUN/Creatinine Ratio 32.6 H Glucose 123 H Lactic Acid 1.7 Calcium 6.9 L Phosphorus 5.1 H Magnesium 2.8 H Total Bilirubin 1.80 H AST 77 H ALT 31 Alkaline Phosphatase 88 Total Creatine Kinase 171 B-Natriuretic Peptide Total Protein 4.9 L Albumin 1.7 L Globulin 3.2 Albumin/Globulin Ratio 0.5 L Triglycerides 80 Cortisol MRSA (PCR) Blood Type Antibody Screen Crossmatch 05/18/18 04:52 WBC RBC Hgb Hct MCV MCH MCHC RDW RDW Differential Plt Count MPV Immature Gran % (Auto) Neut % (Auto) Lymph % (Auto) Cooke % (Auto) Eos % (Auto) Baso % (Auto) Absolute Neuts (auto) Absolute Lymphs (auto) Total Counted Differential Comment Diff Path Review Toxic Granulation Platelet Estimate RBC Morphology Hypochromasia Anisocytosis Macrocytosis PT INR Specimen Type CLEOPATRA Sample Site R Radial pH 7.31 L Bicarbonate Actual 23.8 POC Total CO2 25 Base Excess -2 O2 Saturation 86 L O2 % 60 ABG pCO2 46.9 H ABG pO2 56 L Rod Test NA Respiration Rate 12 O2 Delivery Device Vent Vent Mode A-C Tidal Volume 600 POC PEEP 5 Blood Gas Notified Whom ICU MD Blood Gas Notified Time 449 Sodium Potassium Chloride Carbon Dioxide Anion Gap BUN Creatinine Estim Creat Clear Calc Est GFR (MDRD) Af Amer Est GFR (MDRD) Non-Af BUN/Creatinine Ratio Glucose Lactic Acid Calcium Phosphorus Magnesium Total Bilirubin AST ALT Alkaline Phosphatase Total Creatine Kinase B-Natriuretic Peptide Total Protein Albumin Globulin Albumin/Globulin Ratio Triglycerides Cortisol MRSA (PCR) Blood Type Antibody Screen Crossmatch Clinical Impression(s) from Imaging Studies Abdomen/Pelvis CT 05/03/18 07:41 IMPRESSION: Large bladder mass as described causing a marked degree of bladder dilatation. Air is seen within the urinary bladder. This may be related to Maldonado catheter manipulation. If not, a colovesical fistula should be ruled out. Electronically Signed: Johnny Neil MD at 9:02 EST , Service support , Chest X-Ray 05/03/18 09:37 IMPRESSION: Mild cardiomegaly. Electronically Signed: Johnny Neil MD at 10:05 EST , Service support , Abdomen/Pelvis CT 05/04/18 07:00 IMPRESSION: Evaluation was performed to evaluate for a colovesical fistula. Please note that a study prior to injection of rectal contrast was not performed. This somewhat limits evaluation. There is hyperdense material in the bladder at time of prior study May 03, 2018 which most likely represented a hematoma. On today's examination again noted is gas as well as hyperdense material within the bladder. There is intimate association with a segment of the sigmoid colon with the urinary bladder. There is a small focus of gas within the bladder at this region. Findings would be concerning for a colovesical fistula. Correlate with urinalysis. Interval placement of a Maldonado catheter. The previously noted bladder hyperdense masslike lesion has significantly decreased in size. Likely representing a large hematoma. Recommend follow-up to ensure resolution. Diverticulosis is present. There is some thickening of the sigmoid colon with some stranding concerning for diverticulitis. Infrarenal abdominal aortic aneurysm. Decreasing right hydronephrosis. Evidence of prior granulomatous disease. Bilateral nephrolithiasis. Electronically Signed: Dawood Morrison, at 7:57 EST Tel , Service support , Chest X-Ray 05/10/18 05:55 IMPRESSION: Atelectasis and/or infiltrates at the lung bases worse on the left side with blunting of left costophrenic angle. Electronically Signed: Johnny Neil MD at 9:43 EST , Service support , Chest X-Ray 05/12/18 16:45 IMPRESSION: 1. Decreased bibasilar atelectasis. No organizing infiltrates seen. 2. Gaseous distention of bowel in the upper abdomen, incompletely visualized. 3. Mild cardiomegaly. Electronically Signed: Tunde Cole MD at 17:03 EST , Service support , Abdomen/Pelvis CT 05/13/18 10:28 IMPRESSION: Small bilateral pleural effusions with bibasilar infiltrates and/or atelectasis. Small amount of perihepatic as well as perisplenic fluid as well as fluid in the pelvis. Small amount of fluid in the Colic gutters. Postoperative changes in the region of the umbilicus there Distention of the ascending colon and transverse colon and descending colon down to the region of the anastomosis at the rectosigmoid junction. A Maldonado catheter seen within the urinary bladder. Electronically Signed: Johnny Neil MD at 13:48 EST , Service support , Chest X-Ray 05/13/18 14:18 IMPRESSION: The tip of the right internal jugular venous catheter is in the proximal portion of the superior vena cava. There is no evidence of pneumothorax. Stable appearance of the lungs. Electronically Signed: Johnny Neil MD at 15:52 EST , Service support , Chest X-Ray 05/13/18 19:24 IMPRESSION: Interval placement endotracheal and enteric tubes as above. at 1955 Reported and signed by: Jason Goins MD Electronically Signed: Jason Goins, at 19:54 EST Tel , Service support , Chest X-Ray 05/16/18 09:45 IMPRESSION: Mild degree of increased markings at the lung bases. Free intraperitoneal air with the dilatation of the colon. Electronically Signed: Johnny Neil, at 14:24 EST , Service support , Abdomen CT 05/17/18 11:30 IMPRESSION: 1. Extensive free air and mild free fluid in the anterior abdomen, concerning for possible anastomotic leak. Open wound may be contributory. 2. Dilated small bowel with gradual transition in the pelvis, possibly due to adhesions. 3. Gas in decompressed bladder may be due to catheter placement or fistula. 4. Small pleural effusions. 5. A 3.2 cm infrarenal AAA. 6. Left femoral head collapse, likely secondary to avascular necrosis. Dr. Mayorga discussed the findings with Dr. Woo at 5:28 PM. N.B. : The above information has been verbally conveyed by Aleena Mayorga MD to Dr. Gerardo Woo MD, on 05/17/2018 17:29:57 (ET). Electronically Signed: Aleena Mayorga MD at 17:31 EST Tel , Service support , ADDENDUM: 05/17/18 1738 IMPRESSION: 1. Extensive free air and mild free fluid in the anterior abdomen, concerning for possible anastomotic leak. Open wound may be contributory. 2. Dilated small bowel with gradual transition in the pelvis, possibly due to adhesions. 3. Gas in decompressed bladder may be due to catheter placement or fistula. 4. Small pleural effusions. 5. A 3.2 cm infrarenal AAA. 6. Left femoral head collapse, likely secondary to avascular necrosis. Dr. Mayorga discussed the findings with Dr. Woo at 5:28 PM. N.B. : The above information has been verbally conveyed by Aleena Mayorga MD to Dr. Gerardo Woo MD, on 05/17/2018 17:29:57 (ET). Electronically Signed: Aleena Mayorga MD at 17:31 EST Tel , Service support , KUB X-Ray 05/17/18 22:56 IMPRESSION: NG tube terminates in the gastric antrum. Electronically Signed: Aleena Mayorga MD at 23:58 EST Tel , Service support , Abdomen CT 05/17/18 22:59 IMPRESSION: Large amount of free intraperitoneal air and moderate free fluid similar to previous. As noted on the prior study, this is more than is normally seen postoperatively and is concerning for bowel perforation or perhaps wound dehiscence. No extraluminal enteric contrast identified. However there is pneumatosis and wall thickening of the ascending colon with immediately adjacent foci of extraluminal air; suspicious for perforation here. Enteric contrast has not yet reached this loop of bowel. Slight interval worsening of bibasal atelectasis versus pneumonia. Several other chronic findings as above similar to prior. Individualized dose optimization techniques were used for this CT. at 0042 Reported and signed by: Jason Goins MD Electronically Signed: Jason Goins, at 0:40 EST Tel , Service support , ADDENDUM: 05/18/18 0052 IMPRESSION: Large amount of free intraperitoneal air and moderate free fluid similar to previous. As noted on the prior study, this is more than is normally seen postoperatively and is concerning for bowel perforation or perhaps wound dehiscence. No extraluminal enteric contrast identified. However there is pneumatosis and wall thickening of the ascending colon with immediately adjacent foci of extraluminal air; suspicious for perforation here. Enteric contrast has not yet reached this loop of bowel. Slight interval worsening of bibasal atelectasis versus pneumonia. Several other chronic findings as above similar to prior. Individualized dose optimization techniques were used for this CT. at 0042 Reported and signed by: Jason Goins MD N.B. : The above information has been verbally conveyed by Jason Goins to Yoly Gallo RN, on 05/18/2018 00:45:57 (ET). Electronically Signed: Jason Goins, at 0:40 EST Tel , Service support , Medical Necessity - Tobacco Use Smoking Status: Current every day smoker Tobacco Use: Cigarettes Assessment/Plan All Active Problems (Last Reviewed 05/04/18 @ 08:39 by Prasanth Pradhan MD) Gross hematuria (Acute) Overweight (Acute) MASOOD (obstructive sleep apnea) (Acute) Colovesical fistula (Acute) Large bowel anastomotic leak (Acute) Sepsis associated hypotension (Acute) Perforated abdominal viscus (Acute) Perforated viscus (Acute) Acute kidney injury (Acute) RECOMMENDATIONS: 1. Continue to hold Coumadin. Start continuous heparin infusion for now. 2. Continue broad-spectrum antimicrobial coverage, per infectious diseases recommendations. 3. Continue vasopressor support in an attempt to maintain a mean arterial pressure at or above 60 mmHg. 4. Decrease tidal volume to 500mL and increase respiratory rate to 16. 5. Recommend judicious use of fluids, given how edematous the patient currently is. He is significantly volume up for the admission. 6. May need to consider initiation of TPN. 7. Wean FiO2 as tolerated. 8. Electrolyte repletion as ordered. IMPRESSIONS: 1. Septic shock secondary to perforated viscus, now POD #0 s/p exploratory laparotomy and repair of perforated jejunum The patient is currently on broad-spectrum antimicrobials. Infectious diseases is following. He remains on dual vasopressor support in an attempt to maintain hemodynamic stability. This will be continued in an attempt to maintain a mean arterial pressure at or above 60 mmHg. I recommended judicious use of supplemental IV fluids, given the patient's underlying cardiomyopathy and current volume overloaded state. Cultures remain in process. May need to consider the initiation of TPN in the very near future. 2. Acute respiratory failure The patient returns to the ICU following surgery on invasive mechanical ventilation. At this time, the patient's clinical state is far too tenuous to consider aggressive weaning from mechanical ventilatory support. Adjustments have been made to the patient's tidal volume and respiratory rate this morning. We will plan to continue the patient on assist control, with plans to wean FiO2 to maintain oxygen saturations at or above 90%. 3. Coronary artery disease/chronic systolic heart failure Continue current medical therapy. The patient's Lasix and beta-bravo regimen are currently on hold. 4. Paroxysmal atrial fibrillation/chronic anticoagulation status The patient's anticoagulation was fully reversed yesterday in preparation for surgery. Given his tenuous clinical status, recommend initiation of a continuous heparin drip for now. 5. Hypokalemia Electrolyte repletion has been ordered. Recommend rechecking levels in the morning. 6. Acute kidney injury Likely prerenal in etiology and related to ischemic ATN in the setting of #1. Will continue current supportive measures as noted above. Nephrology was consulted to evaluate the patient. 7. History of obstructive sleep apnea The patient reports a history of noncompliance with the use of nocturnal Pap therapy. TIME: 45 minutes of critical care time, independent of procedures, was spent addressing the patient's septic shock, perforated viscus, acute respiratory failure, coronary artery disease, biventricular heart failure, paroxysmal atrial fibrillation, hypokalemia, acute kidney injury, review of all data and collaboration with the care team. ([id number]) Code Visit [id number]: [id number] Critical care first hour
--- NOTE | 2018-05-18 06:52 | PN_ITS ---
Subjective: The patient was seen and examined at the bedside this morning. Events from the last 24 hours have been reviewed. The patient is currently afebrile, but is requiring vasopressin and Levophed to maintain hemodynamic stability. The patient was taken back to the OR overnight due to free air identified on CT abdomen. The patient was identified as having a perforation in his mid jejunum, which was repaired. The patient returned to the medical intensive care unit, intubated and mechanically ventilated. His potassium is low this morning at 3.4. He currently has propofol and fentanyl for sedation. His Levophed is currently at 10 mcg. White blood cell count has improved. The patient's anticoagulation was completely reversed yesterday for surgery. He will therefore be started on a heparin drip this morning. Perioperatively, the patient has received a total of 2 units of packed red blood cells, 6 FFP and 10 of vitamin K. Objective: The patient's most recent lab work, culture data and imaging studies have all been personally reviewed. Blood and urine cultures are pending. A transesophageal echocardiogram from August 2017 revealed evidence of a moderately severe global LV systolic dysfunction with an ejection fraction of 30%. There is also evidence of moderate global RV systolic dysfunction. There was moderate aortic valve stenosis. General: - - The patient is currently intubated, sedated and mechanically ventilated. HEENT: Atraumatic, Normocephalic, Sluggish Pupils Oral: No Gingival or Mucosal Lesions/ Ulcerations, - - Endotracheal tube in place. Nasogastric tube in place. Neck: Supple, No Nodes, Trachea Midline, - - Central venous catheter remains in place. Lungs: Diminished, - - Coarse mechanical breath sounds. Cardiovascular: Normal S1, Normal S2, Irregular Rate, Tachycardic Abdomen: Distended, - - Postsurgical wound noted. Ostomy in place. RICARDO drains x2 in place Extremities: No clubbing, No cyanosis, - - Profoundly edematous Skin: - - No significant change from previous. Musculoskeletal: No Tenderness to Palpation of Joints or Extremities Lymphatic: No Cervical, Supraclavicular, or Inguinal Adenopathy Neurological: - - No focal neurological deficits. The patient is currently sedated with a RASS of -1. Vital Signs Temp Pulse Resp BP Pulse Ox 36.7 C 92 12 82/61 L 95 05/18/18 05:45 05/18/18 06:00 05/18/18 06:00 05/18/18 06:00 05/18/18 06:00 Oxygen Flow Rate (L/min) 15 Oxygen Delivery Method Mechanical Ventilator Weight: 252 lb 13.923 oz Body Mass Index (BMI) 29.9 Intake and Output for Last 24 Hours 05/16/18 05/17/18 05/18/18 23:59 23:59 23:59 Intake Total 1985 / 1985 1295 / 1295 2472.1 / 2472.1 Output Total 1550 / 1550 785 / 785 1570 / 1570 Balance 436 / 436 510 / 510 902.1 / 902.1 Labs (Last 48 Hours) 05/16/18 05/17/18 05/17/18 05:30 05:15 05:15 WBC 23.8 H RBC 2.81 L Hgb 10.3 L Hct 30.5 L MCV 108.5 H MCH 36.7 H MCHC 33.8 RDW 15.2 H RDW Differential 59.8 H Plt Count 432 MPV 11.7 Immature Gran % (Auto) 1.200 H Neut % (Auto) 87.6 H Lymph % (Auto) 4.2 L Scurry % (Auto) 6.4 Eos % (Auto) 0.4 Baso % (Auto) 0.2 Absolute Neuts (auto) 20.9 H Absolute Lymphs (auto) 0.99 Total Counted Not Reportable Differential Comment Diff Path Review Reviewed Toxic Granulation Platelet Estimate RBC Morphology Hypochromasia Anisocytosis Macrocytosis PT INR Specimen Type Sample Site pH Bicarbonate Actual POC Total CO2 Base Excess O2 Saturation O2 % ABG pCO2 ABG pO2 Rod Test Respiration Rate O2 Delivery Device Vent Mode Tidal Volume POC PEEP Blood Gas Notified Whom Blood Gas Notified Time Sodium 131 L Potassium 3.9 Chloride 93 L Carbon Dioxide 28.0 Anion Gap 10 BUN 44 H Creatinine 2.15 H Estim Creat Clear Calc 39.60 Est GFR (MDRD) Af Amer 40 L Est GFR (MDRD) Non-Af 33 L BUN/Creatinine Ratio 20.5 H Glucose 107 H Lactic Acid Calcium 7.6 L Phosphorus Magnesium Total Bilirubin AST ALT Alkaline Phosphatase Total Creatine Kinase B-Natriuretic Peptide 49.9 Total Protein Albumin Globulin Albumin/Globulin Ratio Triglycerides Cortisol MRSA (PCR) Blood Type Antibody Screen Crossmatch 05/17/18 05/17/18 05/17/18 08:13 09:50 10:05 WBC RBC Hgb Hct MCV MCH MCHC RDW RDW Differential Plt Count MPV Immature Gran % (Auto) Neut % (Auto) Lymph % (Auto) Scurry % (Auto) Eos % (Auto) Baso % (Auto) Absolute Neuts (auto) Absolute Lymphs (auto) Total Counted Differential Comment Diff Path Review Toxic Granulation Platelet Estimate RBC Morphology Hypochromasia Anisocytosis Macrocytosis PT 67.3 H INR 7.8 H* Specimen Type Sample Site pH Bicarbonate Actual POC Total CO2 Base Excess O2 Saturation O2 % ABG pCO2 ABG pO2 Rod Test Respiration Rate O2 Delivery Device Vent Mode Tidal Volume POC PEEP Blood Gas Notified Whom Blood Gas Notified Time Sodium Potassium Chloride Carbon Dioxide Anion Gap BUN Creatinine Estim Creat Clear Calc Est GFR (MDRD) Af Amer Est GFR (MDRD) Non-Af BUN/Creatinine Ratio Glucose Lactic Acid 1.4 Calcium Phosphorus Magnesium Total Bilirubin AST ALT Alkaline Phosphatase Total Creatine Kinase B-Natriuretic Peptide Total Protein Albumin Globulin Albumin/Globulin Ratio Triglycerides Cortisol MRSA (PCR) Negative Blood Type Antibody Screen Crossmatch 05/17/18 05/17/18 05/17/18 12:50 13:00 14:00 WBC RBC Hgb Hct MCV MCH MCHC RDW RDW Differential Plt Count MPV Immature Gran % (Auto) Neut % (Auto) Lymph % (Auto) Scurry % (Auto) Eos % (Auto) Baso % (Auto) Absolute Neuts (auto) Absolute Lymphs (auto) Total Counted Differential Comment Diff Path Review Toxic Granulation Platelet Estimate RBC Morphology Hypochromasia Anisocytosis Macrocytosis PT INR Specimen Type Sample Site pH Bicarbonate Actual POC Total CO2 Base Excess O2 Saturation O2 % ABG pCO2 ABG pO2 Rod Test Respiration Rate O2 Delivery Device Vent Mode Tidal Volume POC PEEP Blood Gas Notified Whom Blood Gas Notified Time Sodium Potassium Chloride Carbon Dioxide Anion Gap BUN Creatinine Estim Creat Clear Calc Est GFR (MDRD) Af Amer Est GFR (MDRD) Non-Af BUN/Creatinine Ratio Glucose Lactic Acid Calcium Phosphorus Magnesium Total Bilirubin AST ALT Alkaline Phosphatase Total Creatine Kinase B-Natriuretic Peptide Total Protein Albumin Globulin Albumin/Globulin Ratio Triglycerides Cortisol 43.20 H 49.50 H 60.60 H MRSA (PCR) Blood Type Antibody Screen Crossmatch 05/17/18 05/17/18 05/17/18 17:00 17:00 21:18 WBC 20.2 H RBC 2.39 L Hgb 8.7 L Hct 25.4 L MCV 106.3 H MCH 36.4 H MCHC 34.3 RDW 15.2 H RDW Differential 58.7 H Plt Count 421 MPV 11.0 Immature Gran % (Auto) 1.300 H Neut % (Auto) 90.4 H Lymph % (Auto) 2.3 L Scurry % (Auto) 5.9 Eos % (Auto) 0.0 Baso % (Auto) 0.1 Absolute Neuts (auto) 18.2 H Absolute Lymphs (auto) 0.47 L Total Counted Not Reportable Differential Comment SEE COMMENT Diff Path Review May foll Toxic Granulation RARE Platelet Estimate SLT INC RBC Morphology Hypochromasia 2+ Anisocytosis 2+ Macrocytosis 2+ PT INR Specimen Type Sample Site pH Bicarbonate Actual POC Total CO2 Base Excess O2 Saturation O2 % ABG pCO2 ABG pO2 Rod Test Respiration Rate O2 Delivery Device Vent Mode Tidal Volume POC PEEP Blood Gas Notified Whom Blood Gas Notified Time Sodium Potassium Chloride Carbon Dioxide Anion Gap BUN Creatinine Estim Creat Clear Calc Est GFR (MDRD) Af Amer Est GFR (MDRD) Non-Af BUN/Creatinine Ratio Glucose Lactic Acid Calcium Phosphorus Magnesium Total Bilirubin AST ALT Alkaline Phosphatase Total Creatine Kinase B-Natriuretic Peptide Total Protein Albumin Globulin Albumin/Globulin Ratio Triglycerides Cortisol MRSA (PCR) Blood Type A POSITIVE Antibody Screen NEGATIVE Crossmatch See Detail 05/17/18 05/17/18 05/17/18 21:18 21:18 21:18 WBC RBC Hgb Hct MCV MCH MCHC RDW RDW Differential Plt Count MPV Immature Gran % (Auto) Neut % (Auto) Lymph % (Auto) Scurry % (Auto) Eos % (Auto) Baso % (Auto) Absolute Neuts (auto) Absolute Lymphs (auto) Total Counted Differential Comment Diff Path Review Toxic Granulation Platelet Estimate RBC Morphology Hypochromasia Anisocytosis Macrocytosis PT 21.7 H INR 1.9 Specimen Type Sample Site pH Bicarbonate Actual POC Total CO2 Base Excess O2 Saturation O2 % ABG pCO2 ABG pO2 Rod Test Respiration Rate O2 Delivery Device Vent Mode Tidal Volume POC PEEP Blood Gas Notified Whom Blood Gas Notified Time Sodium 134 L Potassium 3.2 L Chloride 93 L Carbon Dioxide 29.0 Anion Gap 12 BUN 47 H Creatinine 1.63 H Estim Creat Clear Calc 52.24 Est GFR (MDRD) Af Amer 56 L Est GFR (MDRD) Non-Af 46 L BUN/Creatinine Ratio 28.8 H Glucose 149 H Lactic Acid Calcium 7.5 L Phosphorus 5.1 H Magnesium 3.0 H Total Bilirubin 1.30 H AST 69 H ALT 35 Alkaline Phosphatase 90 Total Creatine Kinase B-Natriuretic Peptide Total Protein 5.9 L Albumin 2.2 L Globulin 3.7 Albumin/Globulin Ratio 0.6 L Triglycerides Cortisol MRSA (PCR) Blood Type Antibody Screen Crossmatch 05/17/18 05/18/18 05/18/18 22:02 04:50 04:50 WBC 16.3 H RBC 3.23 L Hgb 11.2 L Hct 33.5 L MCV 103.7 H MCH 34.7 H MCHC 33.4 RDW 18.1 H RDW Differential 68.9 H Plt Count 452 H MPV 11.4 Immature Gran % (Auto) 1.900 H Neut % (Auto) 85.3 H Lymph % (Auto) 3.9 L Scurry % (Auto) 8.5 Eos % (Auto) 0.2 Baso % (Auto) 0.2 Absolute Neuts (auto) 13.9 H Absolute Lymphs (auto) 0.64 L Total Counted Not Reportable Differential Comment Diff Path Review Toxic Granulation 2+ Platelet Estimate SLT INC RBC Morphology RARE Hypochromasia 1+ Anisocytosis 1+ Macrocytosis 1+ PT 18.6 H INR 1.6 Specimen Type Sample Site pH Bicarbonate Actual POC Total CO2 Base Excess O2 Saturation O2 % ABG pCO2 ABG pO2 Rod Test Respiration Rate O2 Delivery Device Vent Mode Tidal Volume POC PEEP Blood Gas Notified Whom Blood Gas Notified Time Sodium Potassium Chloride Carbon Dioxide Anion Gap BUN Creatinine Estim Creat Clear Calc Est GFR (MDRD) Af Amer Est GFR (MDRD) Non-Af BUN/Creatinine Ratio Glucose Lactic Acid 1.2 Calcium Phosphorus Magnesium Total Bilirubin AST ALT Alkaline Phosphatase Total Creatine Kinase B-Natriuretic Peptide Total Protein Albumin Globulin Albumin/Globulin Ratio Triglycerides Cortisol MRSA (PCR) Blood Type Antibody Screen Crossmatch 05/18/18 05/18/18 05/18/18 04:50 04:50 04:50 WBC RBC Hgb Hct MCV MCH MCHC RDW RDW Differential Plt Count MPV Immature Gran % (Auto) Neut % (Auto) Lymph % (Auto) Scurry % (Auto) Eos % (Auto) Baso % (Auto) Absolute Neuts (auto) Absolute Lymphs (auto) Total Counted Differential Comment Diff Path Review Toxic Granulation Platelet Estimate RBC Morphology Hypochromasia Anisocytosis Macrocytosis PT INR Specimen Type Sample Site pH Bicarbonate Actual POC Total CO2 Base Excess O2 Saturation O2 % ABG pCO2 ABG pO2 Rod Test Respiration Rate O2 Delivery Device Vent Mode Tidal Volume POC PEEP Blood Gas Notified Whom Blood Gas Notified Time Sodium 135 L Potassium 3.4 L Chloride 99 Carbon Dioxide 25.0 Anion Gap 11 BUN 44 H Creatinine 1.35 H Estim Creat Clear Calc 63.07 Est GFR (MDRD) Af Amer 69 Est GFR (MDRD) Non-Af 57 L BUN/Creatinine Ratio 32.6 H Glucose 123 H Lactic Acid 1.7 Calcium 6.9 L Phosphorus 5.1 H Magnesium 2.8 H Total Bilirubin 1.80 H AST 77 H ALT 31 Alkaline Phosphatase 88 Total Creatine Kinase 171 B-Natriuretic Peptide Total Protein 4.9 L Albumin 1.7 L Globulin 3.2 Albumin/Globulin Ratio 0.5 L Triglycerides 80 Cortisol MRSA (PCR) Blood Type Antibody Screen Crossmatch 05/18/18 04:52 WBC RBC Hgb Hct MCV MCH MCHC RDW RDW Differential Plt Count MPV Immature Gran % (Auto) Neut % (Auto) Lymph % (Auto) Scurry % (Auto) Eos % (Auto) Baso % (Auto) Absolute Neuts (auto) Absolute Lymphs (auto) Total Counted Differential Comment Diff Path Review Toxic Granulation Platelet Estimate RBC Morphology Hypochromasia Anisocytosis Macrocytosis PT INR Specimen Type CLEOPATRA Sample Site R Radial pH 7.31 L Bicarbonate Actual 23.8 POC Total CO2 25 Base Excess -2 O2 Saturation 86 L O2 % 60 ABG pCO2 46.9 H ABG pO2 56 L Rod Test NA Respiration Rate 12 O2 Delivery Device Vent Vent Mode A-C Tidal Volume 600 POC PEEP 5 Blood Gas Notified Whom ICU MD Blood Gas Notified Time 449 Sodium Potassium Chloride Carbon Dioxide Anion Gap BUN Creatinine Estim Creat Clear Calc Est GFR (MDRD) Af Amer Est GFR (MDRD) Non-Af BUN/Creatinine Ratio Glucose Lactic Acid Calcium Phosphorus Magnesium Total Bilirubin AST ALT Alkaline Phosphatase Total Creatine Kinase B-Natriuretic Peptide Total Protein Albumin Globulin Albumin/Globulin Ratio Triglycerides Cortisol MRSA (PCR) Blood Type Antibody Screen Crossmatch Clinical Impression(s) from Imaging Studies Abdomen/Pelvis CT 05/03/18 07:41 IMPRESSION: Large bladder mass as described causing a marked degree of bladder dilatation. Air is seen within the urinary bladder. This may be related to Maldonado catheter manipulation. If not, a colovesical fistula should be ruled out. Electronically Signed: Johnny Neil MD at 9:02 EST , Service support , Chest X-Ray 05/03/18 09:37 IMPRESSION: Mild cardiomegaly. Electronically Signed: Johnny Neil MD at 10:05 EST , Service support , Abdomen/Pelvis CT 05/04/18 07:00 IMPRESSION: Evaluation was performed to evaluate for a colovesical fistula. Please note that a study prior to injection of rectal contrast was not performed. This somewhat limits evaluation. There is hyperdense material in the bladder at time of prior study May 03, 2018 which most likely represented a hematoma. On today's examination again noted is gas as well as hyperdense material within the bladder. There is intimate association with a segment of the sigmoid colon with the urinary bladder. There is a small focus of gas within the bladder at this region. Findings would be concerning for a colovesical fistula. Correlate with urinalysis. Interval placement of a Maldonado catheter. The previously noted bladder hyperdense masslike lesion has significantly decreased in size. Likely representing a large hematoma. Recommend follow-up to ensure resolution. Diverticulosis is present. There is some thickening of the sigmoid colon with some stranding concerning for diverticulitis. Infrarenal abdominal aortic aneurysm. Decreasing right hydronephrosis. Evidence of prior granulomatous disease. Bilateral nephrolithiasis. Electronically Signed: Dawood Morrison, at 7:57 EST Tel , Service support , Chest X-Ray 05/10/18 05:55 IMPRESSION: Atelectasis and/or infiltrates at the lung bases worse on the left side with blunting of left costophrenic angle. Electronically Signed: Johnny Neil MD at 9:43 EST , Service support , Chest X-Ray 05/12/18 16:45 IMPRESSION: 1. Decreased bibasilar atelectasis. No organizing infiltrates seen. 2. Gaseous distention of bowel in the upper abdomen, incompletely visualized. 3. Mild cardiomegaly. Electronically Signed: Tunde Cole MD at 17:03 EST , Service support , Abdomen/Pelvis CT 05/13/18 10:28 IMPRESSION: Small bilateral pleural effusions with bibasilar infiltrates and/or atelectasis. Small amount of perihepatic as well as perisplenic fluid as well as fluid in the pelvis. Small amount of fluid in the Colic gutters. Postoperative changes in the region of the umbilicus there Distention of the ascending colon and transverse colon and descending colon down to the region of the anastomosis at the rectosigmoid junction. A Maldonado catheter seen within the urinary bladder. Electronically Signed: Johnny Neil MD at 13:48 EST , Service support , Chest X-Ray 05/13/18 14:18 IMPRESSION: The tip of the right internal jugular venous catheter is in the proximal portion of the superior vena cava. There is no evidence of pneumothorax. Stable appearance of the lungs. Electronically Signed: Johnny Neil MD at 15:52 EST , Service support , Chest X-Ray 05/13/18 19:24 IMPRESSION: Interval placement endotracheal and enteric tubes as above. at 1955 Reported and signed by: Jason Goins MD Electronically Signed: Jason Goins, at 19:54 EST Tel , Service support , Chest X-Ray 05/16/18 09:45 IMPRESSION: Mild degree of increased markings at the lung bases. Free intraperitoneal air with the dilatation of the colon. Electronically Signed: Johnny Neil, at 14:24 EST , Service support , Abdomen CT 05/17/18 11:30 IMPRESSION: 1. Extensive free air and mild free fluid in the anterior abdomen, concerning for possible anastomotic leak. Open wound may be contributory. 2. Dilated small bowel with gradual transition in the pelvis, possibly due to adhesions. 3. Gas in decompressed bladder may be due to catheter placement or fistula. 4. Small pleural effusions. 5. A 3.2 cm infrarenal AAA. 6. Left femoral head collapse, likely secondary to avascular necrosis. Dr. Mayorga discussed the findings with Dr. Woo at 5:28 PM. N.B. : The above information has been verbally conveyed by Aleena Mayorga MD to Dr. Gerardo Woo MD, on 05/17/2018 17:29:57 (ET). Electronically Signed: Aleena Mayorga MD at 17:31 EST Tel , Service support , ADDENDUM: 05/17/18 1738 IMPRESSION: 1. Extensive free air and mild free fluid in the anterior abdomen, concerning for possible anastomotic leak. Open wound may be contributory. 2. Dilated small bowel with gradual transition in the pelvis, possibly due to adhesions. 3. Gas in decompressed bladder may be due to catheter placement or fistula. 4. Small pleural effusions. 5. A 3.2 cm infrarenal AAA. 6. Left femoral head collapse, likely secondary to avascular necrosis. Dr. Mayorga discussed the findings with Dr. Woo at 5:28 PM. N.B. : The above information has been verbally conveyed by Aleena Mayorga MD to Dr. Gerardo Woo MD, on 05/17/2018 17:29:57 (ET). Electronically Signed: Aleena Mayorga MD at 17:31 EST Tel , Service support , KUB X-Ray 05/17/18 22:56 IMPRESSION: NG tube terminates in the gastric antrum. Electronically Signed: Aleena Mayorga MD at 23:58 EST Tel , Service support , Abdomen CT 05/17/18 22:59 IMPRESSION: Large amount of free intraperitoneal air and moderate free fluid similar to previous. As noted on the prior study, this is more than is normally seen postoperatively and is concerning for bowel perforation or perhaps wound dehiscence. No extraluminal enteric contrast identified. However there is pneumatosis and wall thickening of the ascending colon with immediately adjacent foci of extraluminal air; suspicious for perforation here. Enteric contrast has not yet reached this loop of bowel. Slight interval worsening of bibasal atelectasis versus pneumonia. Several other chronic findings as above similar to prior. Individualized dose optimization techniques were used for this CT. at 0042 Reported and signed by: Jason Goins MD Electronically Signed: Jason Goins, at 0:40 EST Tel , Service support , ADDENDUM: 05/18/18 0052 IMPRESSION: Large amount of free intraperitoneal air and moderate free fluid similar to previous. As noted on the prior study, this is more than is normally seen postoperatively and is concerning for bowel perforation or perhaps wound dehiscence. No extraluminal enteric contrast identified. However there is pneumatosis and wall thickening of the ascending colon with immediately adjacent foci of extraluminal air; suspicious for perforation here. Enteric contrast has not yet reached this loop of bowel. Slight interval worsening of bibasal atelectasis versus pneumonia. Several other chronic findings as above similar to prior. Individualized dose optimization techniques were used for this CT. at 0042 Reported and signed by: Jason Goins MD N.B. : The above information has been verbally conveyed by Jason Goins to Yoly Gallo RN, on 05/18/2018 00:45:57 (ET). Electronically Signed: Jason Goins, at 0:40 EST Tel , Service support , Medical Necessity - Tobacco Use Smoking Status: Current every day smoker Tobacco Use: Cigarettes Assessment/Plan All Active Problems (Last Reviewed 05/04/18 @ 08:39 by Prasanth Pradhan MD) Gross hematuria (Acute) Overweight (Acute) MASOOD (obstructive sleep apnea) (Acute) Colovesical fistula (Acute) Large bowel anastomotic leak (Acute) Sepsis associated hypotension (Acute) Perforated abdominal viscus (Acute) Perforated viscus (Acute) Acute kidney injury (Acute) RECOMMENDATIONS: 1. Continue to hold Coumadin. Start continuous heparin infusion for now. 2. Continue broad-spectrum antimicrobial coverage, per infectious diseases recommendations. 3. Continue vasopressor support in an attempt to maintain a mean arterial pressure at or above 60 mmHg. 4. Decrease tidal volume to 500mL and increase respiratory rate to 16. 5. Recommend judicious use of fluids, given how edematous the patient currently is. He is significantly volume up for the admission. 6. May need to consider initiation of TPN. 7. Wean FiO2 as tolerated. 8. Electrolyte repletion as ordered. IMPRESSIONS: 1. Septic shock secondary to perforated viscus, now POD #0 s/p exploratory laparotomy and repair of perforated jejunum The patient is currently on broad-spectrum antimicrobials. Infectious diseases is following. He remains on dual vasopressor support in an attempt to maintain hemodynamic stability. This will be continued in an attempt to maintain a mean arterial pressure at or above 60 mmHg. I recommended judicious use of supplemental IV fluids, given the patient's underlying cardiomyopathy and current volume overloaded state. Cultures remain in process. May need to consider the initiation of TPN in the very near future. 2. Acute respiratory failure The patient returns to the ICU following surgery on invasive mechanical v entilation. At this time, the patient's clinical state is far too tenuous to consider aggressive weaning from mechanical ventilatory support. Adjustments have been made to the patient's tidal volume and respiratory rate this morning. We will plan to continue the patient on assist control, with plans to wean FiO2 to maintain oxygen saturations at or above 90%. 3. Coronary artery disease/chronic systolic heart failure Continue current medical therapy. The patient's Lasix and beta-bravo regimen are currently on hold. 4. Paroxysmal atrial fibrillation/chronic anticoagulation status The patient's anticoagulation was fully reversed yesterday in preparation for surgery. Given his tenuous clinical status, recommend initiation of a cont inuous heparin drip for now. 5. Hypokalemia Electrolyte repletion has been ordered. Recommend rechecking levels in the morning. 6. Acute kidney injury Likely prerenal in etiology and related to ischemic ATN in the setting of #1. Will continue current supportive measures as noted above. Nephrology was consulted to evaluate the patient. 7. History of obstructive sleep apnea The patient reports a history of noncompliance with the use of nocturnal Pap therapy. TIME: 45 minutes of critical care time, independent of procedures, was spent addressing the patient's septic shock, perforated viscus, acute respiratory failure, coronary artery disease, biventricular heart failure, paroxysmal atrial fibrillation, hypokalemia, acute kidney injury, review of all data and collaboration with the care team. ([id number]) Code Visit [id number]: [id number] Critical care first hour
[2018-05-18 07:24] LABS: Partial Thromboplast Time 40.4 Seconds (24.1-36.2)
[2018-05-18] MEDS: HEPARIN/D5w 25,000 UNITS 25,000 UNITS/250 ML IV.SOLN. 16 UNITS IV (08:13)
[2018-05-18] MEDS: Heparin Injection (Vial) 5,000 UNIT/ML VIAL 9500 UNIT IV (08:13)
--- NOTE | 2018-05-18 08:35 | PCM.PN.HOSP ---
Patient Problems: Active and Suspected Problems (Last Reviewed 05/04/18 @ 08:39 by Prasanth Pradhan MD) Gross hematuria (Acute) Overweight (Acute) MASOOD (obstructive sleep apnea) (Acute) non-compliant with CPAP Peripheral arterial disease (Suspected) Colovesical fistula (Acute) Large bowel anastomotic leak (Acute) Sepsis associated hypotension (Acute) Perforated abdominal viscus (Acute) Perforated viscus (Acute) Subjective: Overnight events noted. Patient had CT scan which showed possible shows free gas under the diaphragm consistent with viscus perforation with sepsis which was found to be perforated jejunum during exploratory laparotomy and repair of perforated jejunum was done. Patient is intubated in ICU. On vasopressor support, norepinephrine and vasopressin. Urine output 500 mL yesterday and 875 level today with total I AND O's 2472/2185 with positive balance of 287 mL. Anemia and coagulopathy was corrected with 6 units of FFP, 2 units of PRBC and 10 mg of vitamin K. No fever or chills. Blood pressure, maps 67 on vasopressor support. Patient was seen by ID. Vitals/I&O's: Vital Signs Temp Pulse Resp BP Pulse Ox 98.0 F 91 12 87/63 L 94 05/18/18 05:45 05/18/18 07:04 05/18/18 07:04 05/18/18 07:00 05/18/18 07:04 Oxygen Flow Rate (L/min) 15 Oxygen Delivery Method Mechanical Ventilator Weight: 252 lb 13.923 oz Body Mass Index (BMI) 29.9 Intake and Output for Last 24 Hours 05/16/18 05/17/18 05/18/18 23:59 23:59 23:59 Intake Total 1985 1295 / 1295 2472.1 / 2472.1 Output Total 1550 / 1550 785 / 785 1570 / 1570 Balance 436 / 436 510 / 510 902.1 / 902.1 General: - - Sedated HEENT: PERRLA, EOMI Neck: Supple, No JVD, Negative Carotid Bruits, Negative Hepatojugular Reflux Lungs: Diminished, - - On vent support Cardiovascular: Regular rate, Regular Rhythm, Normal S1, Normal S2, No murmurs Abdomen: Soft, - - Bowel sounds are absent. Colostomy functioning with gas and liquid stool Extremities: Edema Skin: No rashes, No breakdown Musculoskeletal: Arthritic Changes, Muscle Wasting Neurological: - - On propofol and fentanyl drip; sedated Microbiology Past 72 Hours 05/12/18 17:05 Blood Culture (Wb) - Anticubital Left Blood Culture - Final No growth in 5 days. 05/12/18 17:10 Blood Culture (Wb) - Left Hand Blood Culture - Final No growth in 5 days. Laboratory Results 05/17/18 05:15: Diff Path Review Reviewed 05/17/18 08:13: PT 67.3 H, INR 7.8 H* 05/17/18 09:50: MRSA (PCR) Negative 05/17/18 10:05: Lactic Acid 1.4 05/17/18 12:50: Cortisol 43.20 H 05/17/18 13:00: Cortisol 49.50 H 05/17/18 14:00: Cortisol 60.60 H 05/17/18 17:00: Blood Type A POSITIVE, Antibody Screen NEGATIVE 05/17/18 17:00: Crossmatch See Detail 05/17/18 21:18: WBC 20.2 H, RBC 2.39 L, Hgb 8.7 L, Hct 25.4 L, MCV 106.3 H, MCH 36.4 H, MCHC 34.3, RDW 15.2 H, RDW Differential 58.7 H, Plt Count 421, MPV 11.0, Immature Gran % (Auto) 1.300 H, Neut % (Auto) 90.4 H, Lymph % (Auto) 2.3 L, Brooke % (Auto) 5.9, Eos % (Auto) 0.0, Baso % (Auto) 0.1, Absolute Neuts (auto) 18.2 H, Absolute Lymphs (auto) 0.47 L, Total Counted Not Reportable, Differential Comment SEE COMMENT, Diff Path Review May foll, Toxic Granulation RARE, Platelet Estimate SLT INC, Hypochromasia 2+, Anisocytosis 2+, Macrocytosis 2+ 05/17/18 21:18: PT 21.7 H, INR 1.9 05/17/18 21:18: Sodium 134 L, Potassium 3.2 L, Chloride 93 L, Carbon Dioxide 29.0, Anion Gap 12, BUN 47 H, Creatinine 1.63 H, Estim Creat Clear Calc 52.24, Est GFR (MDRD) Af Amer 56 L, Est GFR (MDRD) Non-Af 46 L, BUN/Creatinine Ratio 28.8 H, Glucose 149 H, Calcium 7.5 L, Total Bilirubin 1.30 H, AST 69 H, ALT 35, Alkaline Phosphatase 90, Total Protein 5.9 L, Albumin 2.2 L, Globulin 3.7, Albumin/Globulin Ratio 0.6 L 05/17/18 21:18: Phosphorus 5.1 H, Magnesium 3.0 H 05/17/18 22:02: Lactic Acid 1.2 05/18/18 04:50: WBC 16.3 H, RBC 3.23 L, Hgb 11.2 L, Hct 33.5 L, MCV 103.7 H, MCH 34.7 H, MCHC 33.4, RDW 18.1 H, RDW Differential 68.9 H, Plt Count 452 H, MPV 11.4, Immature Gran % (Auto) 1.900 H, Neut % (Auto) 85.3 H, Lymph % (Auto) 3.9 L, Brooke % (Auto) 8.5, Eos % (Auto) 0.2, Baso % (Auto) 0.2, Absolute Neuts (auto) 13.9 H, Absolute Lymphs (auto) 0.64 L, Total Counted Not Reportable, Differential Comment , Toxic Granulation 2+, Platelet Estimate SLT INC, RBC Morphology RARE, Hypochromasia 1+, Anisocytosis 1+, Macrocytosis 1+ 05/18/18 04:50: PT 18.6 H, INR 1.6 05/18/18 04:50: Sodium 135 L, Potassium 3.4 L, Chloride 99, Carbon Dioxide 25.0, Anion Gap 11, BUN 44 H, Creatinine 1.35 H, Estim Creat Clear Calc 63.07, Est GFR (MDRD) Af Amer 69, Est GFR (MDRD) Non-Af 57 L, BUN/Creatinine Ratio 32.6 H, Glucose 123 H, Calcium 6.9 L, Phosphorus 5.1 H, Magnesium 2.8 H, Total Bilirubin 1.80 H, AST 77 H, ALT 31, Alkaline Phosphatase 88, Total Protein 4.9 L, Albumin 1.7 L, Globulin 3.2, Albumin/Globulin Ratio 0.5 L 05/18/18 04:50: Lactic Acid 1.7 05/18/18 04:50: Total Creatine Kinase 171, Triglycerides 80 05/18/18 04:50: APTT 40.4 H 05/18/18 04:52: Specimen Type CLEOPATRA, Sample Site R Radial, pH 7.31 L, Bicarbonate Actual 23.8, POC Total CO2 25, Base Excess -2, O2 Saturation 86 L, O2 % 60, ABG pCO2 46.9 H, ABG pO2 56 L, Rod Test NA, Respiration Rate 12, O2 Delivery Device Vent, Vent Mode A-C, Tidal Volume 600, POC PEEP 5, Blood Gas Notified Whom ICU MD, Blood Gas Notified Time 449 Current Medications Albuterol/Ipratropium (Duoneb) 3 ml INHALATION Q4H.RT PRN PRN Reason: WHEEZING Last Admin: 05/17/18 18:50 Dose: 3 ml Atorvastatin Calcium (Lipitor) 40 mg PO HS ERROL Last Admin: 05/17/18 20:59 Dose: 40 mg Bisacodyl (Dulcolax) 5 mg PO DAILY PRN PRN PRN Reason: Constipation Docusate Sodium (Colace) 100 mg PO BID [facility] Last Admin: 05/17/18 20:59 Dose: 100 mg Heparin Sodium (Porcine) (Heparin Na) 0 unit IV UD PRN; Protocol Meropenem 1 gm/ Sodium (Chloride) 120 mls @ 33 mls/hr IV Q8 [facility] Last Admin: 05/18/18 05:48 Dose: 33 mls/hr Vancomycin IV Pharmacy to Dose (1 ea/ Sodium Chloride) 500 mls @ 250 mls/hr IV PRN PRN; Protocol PRN Reason: Rx to Dose Vasopressin 40 units/ Sodium (Chloride) 52 mls @ 3.12 mls/hr IV .[id number] [facility] Last Admin: 05/18/18 05:46 Dose: Not Given Pantoprazole Sodium 40 mg/ (Sodium Chloride) 110 mls @ 330 mls/hr IV Q24 ERROL Fentanyl () 100 mls @ 5 mls/hr IV .Q20H [facility]; Protocol Last Admin: 05/18/18 04:45 Dose: 5 mls/hr Propofol (Diprivan) 1,000 mg in 100 mls @ 6.618 mls/hr CONT INF .Q12H [facility]; Protocol Last Admin: 05/18/18 04:45 Dose: 6.618 mls/hr Heparin Sodium/Dextrose () 25,000 units in 250 mls @ 16 mls/hr IV .[id number] [facility]; Protocol Last Admin: 05/18/18 08:13 Dose: 16 mls/hr Norepinephrine Bitartrate 8 mg (/ Dextrose) 258 mls @ 9.68 mls/hr IV .[id number] [facility] Last Admin: 05/18/18 08:32 Dose: 9.68 mls/hr Magnesium Hydroxide (Milk Of Magnesia) 30 ml PO DAILY PRN PRN Reason: Constipation Magnesium Oxide (Mag-Ox 400) 400 mg PO DAILY [facility] Last Admin: 05/17/18 08:08 Dose: 400 mg Ondansetron HCl (Zofran) 4 mg IV Q6H PRN PRN PRN Reason: Nausea Last Admin: 05/16/18 04:56 Dose: 4 mg Sodium Chloride () 5 - 15 ml IV UD PRN PRN Reason: SALINE FLUSH Last Admin: 05/17/18 05:18 Dose: 10 ml Sodium Hypochlorite (Dakins Solution 0.25% (1/2 Strength)) 1 applic TOPICAL BID [facility]; Protocol Last Admin: 05/17/18 20:58 Dose: Not Given Medical Necessity - Tobacco Use Smoking Status: Current every day smoker Tobacco Use: Cigarettes Assessment/Plan All Active Problems (Last Reviewed 05/04/18 @ 08:39 by Prasanth Pradhan MD) Gross hematuria (Acute) Overweight (Acute) MASOOD (obstructive sleep apnea) (Acute) Colovesical fistula (Acute) Large bowel anastomotic leak (Acute) Sepsis associated hypotension (Acute) Perforated abdominal viscus (Acute) Perforated viscus (Acute) 62-year-old male with past medical history of hypertension, CAD, dilated cardiomyopathy, EF 30%, nicotine dependence who was admitted on 05/02/[address] abdomen and pelvis without contrast showed 8.7 x 8.3 single large mass in the base of the bladder with marked urinary bladder distention air-fluid level was seen in bladder along with colonic diverticulosis which raised the suspicion of colovesical fistula. Further workup for hematuria including cystoscopy revealed large bladder stone for which cystolitholaplaxy, extraction of blood clots and stone fragments was done on 05/03/2018. Patient had sigmoid colon resection and repair of colovesical fistula on 05/03/2018. Subsequently it was complicated with anastomotic leak and patient had exploratory laparotomy and creation of the end colostomy on 05/13/2018. 1. Septic shock due to anastomotic leak and intraabdominal abscess. Overall patient clinical status deteriorated since yesterday and patient is being transferred back to ICU. Discussed with social media marketing analyst, surgeon, wound nurse. On vasopressor support. Financial Aid Administrator follow-up reviewed. Patient had mid jejunal perforation status post exploratory laparotomy with repair on 05/17/2018 ID consult. MRSA nasal screen ordered. Patient is on IV meropenem. Vancomycin is added. MRSA nasal screen came out negative Leukocytosis, coagulopathy, oliguric and acute kidney injury have improved. Leukocytosis improved. Coagulopathy corrected. Hypotension. On vasopressor support s/p exploratory laparotomy with ID consult reviewed and appreciated CT abdomen with oral contrast is ordered. Acute kidney injury most probably ATN from intra-abdominal sepsis: Urine output has improved. Creatinine is improved. Nephrology was consulted. Monitor intake and output, electrolytes and kidney function 2. LLE DVT: developed after surgery. Currently on IV heparin 3. Colovesical fistula s/p sigmoid colectomy complicated by anastomotic leak and intra-abdominal abscess exploratory laparotomy for anastomotic leak with end-colostomy placement. general surgery on board 4. Acute hypoxic respiratory failure On 8 L of oxygen continue breathing treatments; continue oxygen to maintain sats>92% 5. Gross hematuria: resolved. Maldonado catheter in place. to follow up with urology on outpatient basis 6. Possible gout: foot pain is better.Will monitor 7. CAD and ischemic cardiomyopathy has known EF of 30% has a history of left atrial appendage thrombus. cardiology on board Beta-blockers, Lasix and lisinopril on hold on account of hypotension Hold antihypertensive medications until blood pressure recovers 8. Hypertension: Carvedilol, lisinopril held on account of hypotension. 9. A. fib: Heart rate 110s 10. MASOOD: Noncompliant with CPAP. DVT prophylaxis: Coagulopathic. Bilateral SCDs. Code Visit Inpatient E&M: [id number] [facility] Hosp L3
[2018-05-18] MEDS: Chlorhexidine 15 ML PO ×2 (09:58→21:18)
[2018-05-18 11:20] LABS: Vancomycin, Random Level 7.5 ug/mL (0.0-15.0)
--- NOTE | 2018-05-18 12:20 | PCM.RX.CS ---
Consult Pharmacy has been consulted to manage selected antiobiotic: Vancomycin Type of Consult: Follow-up Suspected Infection: Sepsis Prior Doses of Antibiotics Received/Current Regimen: Received 1750mg IV x1 on 05/17/18 at 10:00 Labs: Sodium 135 mmol/L (136-145) L 05/18/18 04:50 Potassium 3.4 mmol/L (3.5-5.1) L 05/18/18 04:50 Chloride 99 mmol/L (98-107) 05/18/18 04:50 Carbon Dioxide 25.0 mmol/L (21.0-32.0) 05/18/18 04:50 Anion Gap 11 (5-15) 05/18/18 04:50 BUN 44 mg/dL (7-18) H 05/18/18 04:50 Creatinine 1.35 mg/dL (0.70-1.30) H 05/18/18 04:50 Est GFR (MDRD) Af Amer 69 mL/min (>60) 05/18/18 04:50 Est GFR (MDRD) Non-Af 57 mL/min (>60) L 05/18/18 04:50 BUN/Creatinine Ratio 32.6 RATIO (10-20) H 05/18/18 04:50 Glucose 123 mg/dL (74-106) H 05/18/18 04:50 Random Vancomycin 7.5 ug/mL (0.0-15.0) 05/18/18 10:10 Microbiology: Microbiology 05/12/18 17:05 Blood Culture (Wb) - Anticubital Left Blood Culture - Final No growth in 5 days. 05/12/18 17:10 Blood Culture (Wb) - Left Hand Blood Culture - Final No growth in 5 days. Weight used for dosin.7 kg Estimated Creatinine Clearance: 63 ml/min Goal Trough: 10-15 mcg/mL Pharmacy Plan for Drug Dosing: Random vancomycin level drawn at 10:10 this morning came back as 7.5. The patient's renal function has improved since yesterday (SCr is now 1.35 and CrCl is 63) so spoke with Dr. Garcia and it was decided that we can now schedule a programmed maintenance dose of vancomycin. Per the Pharmacist-Managed IV Vancomycin Dosing Protocol, dosing will begin at 1000mg IV q12h, and a trough will be scheduled to be drawn before the 4th dose. Pharmacy Service will continue to monitor and adjust dosing as required. Follow-Up Labs: Trough Vancomycin Labs to be done on [date and time ordered]: 05/20/18 at 00:30
[2018-05-18] MEDS: Vancomycin IV 1,000 MG/200 ML BAG 200 MG IV (12:37)
[2018-05-18 14:54] LABS: Partial Thromboplast Time 131.5 Seconds (24.1-36.2)
[2018-05-18] MEDS: Ipratropium/Albuterol Sulfate 3 ML AMPUL.NEB INHALATION ×2 (15:55→22:15)
--- NOTE | 2018-05-18 17:16 | PCM.CONS.R ---
Problem List (1) Acute kidney injury Status: Acute Consultation - Renal PCP/ Referring MD: Requesting physician: [] Primary care physician: Gina Wong NP - History of Present Illness History of Present Illness: The patient is a 62 year old M who was admitted for hematuria . 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 Patient was taken to the OR for colectomy . Hospital course was complicated with perforation. She was taken to the OR again and 05/16 for repair of mid jejunum perforation. Patient currently has colostomy bag. Currently in ICU intubated. FiO2 60%. Renal team was consulted for acute kidney injury. Creatinine peaked at 2.1 mg a deciliter yesterday. Creatinine better today at 1.35. Patient is making decent amount of urine but the urine output has decreased for the last 5 hours to around 20 mL/h. Patient is awake alert following command. Patient is on 2 pressors, Levophed and vasopressin for hemodynamic support . ROS : Unobtainable due to the patient's condition. He is intubated - Allergies Allergies: Allergies No Known Allergies Allergy (Verified 05/03/18 07:02) - Current Medications Current Medications: Current Medications Albuterol/Ipratropium (Duoneb) 3 ml INHALATION Q4H.RT PRN PRN Reason: WHEEZING Last Admin: 05/18/18 15:55 Dose: 3 ml Atorvastatin Calcium (Lipitor) 40 mg NG HS [facility] Bisacodyl (Dulcolax) 5 mg PO DAILY PRN PRN PRN Reason: Constipation Chlorhexidine Gluconate () 15 ml PO BID [facility] Last Admin: 05/18/18 09:58 Dose: 15 ml Chlorhexidine Gluconate () 1 each TOPICAL DAILY [facility] Docusate Sodium (Colace Syrup) 100 mg NG BID [facility] Last Admin: 05/18/18 10:04 Dose: Not Given Heparin Sodium (Porcine) (Heparin Na) 0 unit IV UD PRN; Protocol Meropenem 1 gm/ Sodium (Chloride) 120 mls @ 33 mls/hr IV Q8 [facility] Last Admin: 05/18/18 14:35 Dose: 33 mls/hr Vancomycin IV Pharmacy to Dose (1 ea/ Sodium Chloride) 500 mls @ 250 mls/hr IV PRN PRN; Protocol PRN Reason: Rx to Dose Vasopressin 40 units/ Sodium (Chloride) 52 mls @ 3.12 mls/hr IV .[id number] [facility] Last Admin: 05/18/18 14:37 Dose: 3.12 mls/hr Pantoprazole Sodium 40 mg/ (Sodium Chloride) 110 mls @ 330 mls/hr IV Q24 ERROL Last Admin: 05/18/18 10:03 Dose: 330 mls/hr Fentanyl () 100 mls @ 5 mls/hr IV .Q20H [facility]; Protocol Last Admin: 05/18/18 04:45 Dose: 5 mls/hr Propofol (Diprivan) 1,000 mg in 100 mls @ 6.618 mls/hr CONT INF .Q12H [facility]; Protocol Last Admin: 05/18/18 04:45 Dose: 6.618 mls/hr Heparin Sodium/Dextrose () 25,000 units in 250 mls @ 16 mls/hr IV .[id number] [facility]; Protocol Last Admin: 05/18/18 08:13 Dose: 16 mls/hr Norepinephrine Bitartrate 8 mg (/ Dextrose) 258 mls @ 9.68 mls/hr IV .[id number] [facility] Last Admin: 05/18/18 12:37 Dose: 9.68 mls/hr Vancomycin HCl (Vancomycin) 1,000 mg in 200 mls @ 200 mls/hr IV Q12H [facility] Last Admin: 05/18/18 12:37 Dose: 200 mls/hr Magnesium Hydroxide (Milk Of Magnesia) 30 ml NG DAILY PRN PRN Reason: Constipation Magnesium Oxide (Mag-Ox 400) 400 mg NG DAILY [facility] Last Admin: 05/18/18 10:04 Dose: Not Given Ondansetron HCl (Zofran) 4 mg IV Q6H PRN PRN PRN Reason: Nausea Last Admin: 05/16/18 04:56 Dose: 4 mg Sodium Chloride () 5 - 15 ml IV UD PRN PRN Reason: SALINE FLUSH Last Admin: 05/17/18 05:18 Dose: 10 ml Sodium Hypochlorite (Dakins Solution 0.25% (1/2 Strength)) 1 applic TOPICAL BID [facility]; Protocol Last Admin: 05/18/18 08:43 Dose: Not Given - Past Medical History Past Medical History (Chronic Problems): Chronic Problems (Last Reviewed 05/04/18 @ 08:39 by Prasanth Pradhan MD) Tobacco dependence (Chronic) Pulmonary hypertension (Chronic) Atherosclerotic heart disease of [place] coronary artery without angina pectoris (Chronic) Mild 25-50% stenosis mid LAD Severe left ventricular systolic dysfunction (Chronic) 30% EF in August 2017 with moderate global right ventricular systolic dysfunction, severe left atrial enlargement, left atrial appendage thrombus, severely enlarged right atrium moderate aortic valve stenosis Nonrheumatic aortic (valve) stenosis (Chronic) 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 (Chronic) 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 - Social History Smoking Status: Current every day smoker Alcohol: Occasional Drugs: None - Family History Maternal Family History: Family History (Last Reviewed 09/20/17 @ 11:46 by Faith Sinhg) Mother History of DVT (deep vein thrombosis) Father Atrial fibrillation Diabetes Sister History of DVT (deep vein thrombosis) Brother History of DVT (deep vein thrombosis) Sibling Family History: Family History (Last Reviewed 09/20/17 @ 11:46 by Faith Singh) Mother History of DVT (deep vein thrombosis) Father Atrial fibrillation Diabetes Sister History of DVT (deep vein thrombosis) Brother History of DVT (deep vein thrombosis) History Items: - - Both his brother and sister have a factor V deficiency Patient Problems: Active and Suspected Problems (Last Reviewed 05/04/18 @ 08:39 by Prasanth Pradhan MD) Gross hematuria (Acute) Overweight (Acute) MASOOD (obstructive sleep apnea) (Acute) non-compliant with CPAP Peripheral arterial disease (Suspected) Colovesical fistula (Acute) Large bowel anastomotic leak (Acute) Sepsis associated hypotension (Acute) Perforated abdominal viscus (Acute) Perforated viscus (Acute) Acute kidney injury (Acute) - Physical Exam General: Alert, No apparent distress HEENT: Atraumatic Oral: Moist Mucosa Neck: Supple, No JVD Lungs: - - Patient is on vent support. Equal air entry. No wheezing no crackles Cardiovascular: Regular rate, Tachycardic Abdomen: - - Distended, no bowel sounds Extremities: Edema - +2 edema of lower extremities Lymphatic: No Cervical, Supraclavicular, or Inguinal Adenopathy Neurological: Neuro grossly intact Psych/Mental Status: Appropriate Vital Signs Temp Pulse Resp BP Pulse Ox 97.1 F L 112 H 16 87/60 L 93 05/18/18 16:00 05/18/18 17:00 05/18/18 17:00 05/18/18 17:00 05/18/18 17:00 Oxygen Flow Rate (L/min) 15 Oxygen Delivery Method Mechanical Ventilator Weight: 114.7 kg Body Mass Index (BMI) 29.9 Intake and Output for Last 24 Hours 05/16/18 05/17/18 05/18/18 23:59 23:59 23:59 Intake Total 1985 / 1985 1295 / 1295 3448.1 / 3448.1 Output Total 1550 / 1550 785 / 785 2185 / 2185 Balance 436 / 436 510 / 510 1263.1 / 1263.1 Microbiology Past 72 Hours 05/12/18 17:05 Blood Culture - Final Blood Culture (Wb) - Anticubital Left No growth in 5 days. 05/12/18 17:10 Blood Culture - Final Blood Culture (Wb) - Left Hand No growth in 5 days. Laboratory Tests Past 24 Hrs 05/17/18 05/17/18 05/17/18 17:00 17:00 21:18 WBC 20.2 H RBC 2.39 L Hgb 8.7 L Hct 25.4 L MCV 106.3 H MCH 36.4 H MCHC 34.3 RDW 15.2 H RDW Differential 58.7 H Plt Count 421 MPV 11.0 Immature Gran % (Auto) 1.300 H Neut % (Auto) 90.4 H Lymph % (Auto) 2.3 L [place] % (Auto) 5.9 Eos % (Auto) 0.0 Baso % (Auto) 0.1 Absolute Neuts (auto) 18.2 H Absolute Lymphs (auto) 0.47 L Total Counted Not Reportable Differential Comment SEE COMMENT Diff Path Review May foll Toxic Granulation RARE Platelet Estimate SLT INC RBC Morphology Hypochromasia 2+ Anisocytosis 2+ Macrocytosis 2+ PT INR APTT Specimen Type Sample Site pH Bicarbonate Actual POC Total CO2 Base Excess O2 Saturation O2 % ABG pCO2 ABG pO2 Rod Test Respiration Rate O2 Delivery Device Vent Mode Tidal Volume POC PEEP Blood Gas Notified Whom Blood Gas Notified Time Sodium Potassium Chloride Carbon Dioxide Anion Gap BUN Creatinine Estim Creat Clear Calc Est GFR (MDRD) Af Amer Est GFR (MDRD) Non-Af BUN/Creatinine Ratio Glucose Lactic Acid Calcium Phosphorus Magnesium Total Bilirubin AST ALT Alkaline Phosphatase Total Creatine Kinase Total Protein Albumin Globulin Albumin/Globulin Ratio Triglycerides Random Vancomycin Blood Type A POSITIVE Antibody Screen NEGATIVE Crossmatch See Detail 05/17/18 05/17/18 05/17/18 21:18 21:18 21:18 WBC RBC Hgb Hct MCV MCH MCHC RDW RDW Differential Plt Count MPV Immature Gran % (Auto) Neut % (Auto) Lymph % (Auto) [place] % (Auto) Eos % (Auto) Baso % (Auto) Absolute Neuts (auto) Absolute Lymphs (auto) Total Counted Differential Comment Diff Path Review Toxic Granulation Platelet Estimate RBC Morphology Hypochromasia Anisocytosis Macrocytosis PT 21.7 H INR 1.9 APTT Specimen Type Sample Site pH Bicarbonate Actual POC Total CO2 Base Excess O2 Saturation O2 % ABG pCO2 ABG pO2 Rod Test Respiration Rate O2 Delivery Device Vent Mode Tidal Volume POC PEEP Blood Gas Notified Whom Blood Gas Notified Time Sodium 134 L Potassium 3.2 L Chloride 93 L Carbon Dioxide 29.0 Anion Gap 12 BUN 47 H Creatinine 1.63 H Estim Creat Clear Calc 52.24 Est GFR (MDRD) Af Amer 56 L Est GFR (MDRD) Non-Af 46 L BUN/Creatinine Ratio 28.8 H Glucose 149 H Lactic Acid Calcium 7.5 L Phosphorus 5.1 H Magnesium 3.0 H Total Bilirubin 1.30 H AST 69 H ALT 35 Alkaline Phosphatase 90 Total Creatine Kinase Total Protein 5.9 L Albumin 2.2 L Globulin 3.7 Albumin/Globulin Ratio 0.6 L Triglycerides Random Vancomycin Blood Type Antibody Screen Crossmatch 05/17/18 05/18/18 05/18/18 22:02 04:50 04:50 WBC 16.3 H RBC 3.23 L Hgb 11.2 L Hct 33.5 L MCV 103.7 H MCH 34.7 H MCHC 33.4 RDW 18.1 H RDW Differential 68.9 H Plt Count 452 H MPV 11.4 Immature Gran % (Auto) 1.900 H Neut % (Auto) 85.3 H Lymph % (Auto) 3.9 L [place] % (Auto) 8.5 Eos % (Auto) 0.2 Baso % (Auto) 0.2 Absolute Neuts (auto) 13.9 H Absolute Lymphs (auto) 0.64 L Total Counted Not Reportable Differential Comment Diff Path Review Toxic Granulation 2+ Platelet Estimate SLT INC RBC Morphology RARE Hypochromasia 1+ Anisocytosis 1+ Macrocytosis 1+ PT 18.6 H INR 1.6 APTT Specimen Type Sample Site pH Bicarbonate Actual POC Total CO2 Base Excess O2 Saturation O2 % ABG pCO2 ABG pO2 Rod Test Respiration Rate O2 Delivery Device Vent Mode Tidal Volume POC PEEP Blood Gas Notified Whom Blood Gas Notified Time Sodium Potassium Chloride Carbon Dioxide Anion Gap BUN Creatinine Estim Creat Clear Calc Est GFR (MDRD) Af Amer Est GFR (MDRD) Non-Af BUN/Creatinine Ratio Glucose Lactic Acid 1.2 Calcium Phosphorus Magnesium Total Bilirubin AST ALT Alkaline Phosphatase Total Creatine Kinase Total Protein Albumin Globulin Albumin/Globulin Ratio Triglycerides Random Vancomycin Blood Type Antibody Screen Crossmatch 05/18/18 05/18/18 05/18/18 04:50 04:50 04:50 WBC RBC Hgb Hct MCV MCH MCHC RDW RDW Differential Plt Count MPV Immature Gran % (Auto) Neut % (Auto) Lymph % (Auto) [place] % (Auto) Eos % (Auto) Baso % (Auto) Absolute Neuts (auto) Absolute Lymphs (auto) Total Counted Differential Comment Diff Path Review Toxic Granulation Platelet Estimate RBC Morphology Hypochromasia Anisocytosis Macrocytosis PT INR APTT Specimen Type Sample Site pH Bicarbonate Actual POC Total CO2 Base Excess O2 Saturation O2 % ABG pCO2 ABG pO2 Rod Test Respiration Rate O2 Delivery Device Vent Mode Tidal Volume POC PEEP Blood Gas Notified Whom Blood Gas Notified Time Sodium 135 L Potassium 3.4 L Chloride 99 Carbon Dioxide 25.0 Anion Gap 11 BUN 44 H Creatinine 1.35 H Estim Creat Clear Calc 63.07 Est GFR (MDRD) Af Amer 69 Est GFR (MDRD) Non-Af 57 L BUN/Creatinine Ratio 32.6 H Glucose 123 H Lactic Acid 1.7 Calcium 6.9 L Phosphorus 5.1 H Magnesium 2.8 H Total Bilirubin 1.80 H AST 77 H ALT 31 Alkaline Phosphatase 88 Total Creatine Kinase 171 Total Protein 4.9 L Albumin 1.7 L Globulin 3.2 Albumin/Globulin Ratio 0.5 L Triglycerides 80 Random Vancomycin Blood Type Antibody Screen Crossmatch 05/18/18 05/18/18 05/18/18 04:50 04:52 10:10 WBC RBC Hgb Hct MCV MCH MCHC RDW RDW Differential Plt Count MPV Immature Gran % (Auto) Neut % (Auto) Lymph % (Auto) [place] % (Auto) Eos % (Auto) Baso % (Auto) Absolute Neuts (auto) Absolute Lymphs (auto) Total Counted Differential Comment Diff Path Review Toxic Granulation Platelet Estimate RBC Morphology Hypochromasia Anisocytosis Macrocytosis PT INR APTT 40.4 H Specimen Type CLEOPATRA Sample Site R Radial pH 7.31 L Bicarbonate Actual 23.8 POC Total CO2 25 Base Excess -2 O2 Saturation 86 L O2 % 60 ABG pCO2 46.9 H ABG pO2 56 L Rod Test NA Respiration Rate 12 O2 Delivery Device Vent Vent Mode A-C Tidal Volume 600 POC PEEP 5 Blood Gas Notified Whom ICU MD Blood Gas Notified Time 449 Sodium Potassium Chloride Carbon Dioxide Anion Gap BUN Creatinine Estim Creat Clear Calc Est GFR (MDRD) Af Amer Est GFR (MDRD) Non-Af BUN/Creatinine Ratio Glucose Lactic Acid Calcium Phosphorus Magnesium Total Bilirubin AST ALT Alkaline Phosphatase Total Creatine Kinase Total Protein Albumin Globulin Albumin/Globulin Ratio Triglycerides Random Vancomycin 7.5 Blood Type Antibody Screen Crossmatch 05/18/18 14:35 WBC RBC Hgb Hct MCV MCH MCHC RDW RDW Differential Plt Count MPV Immature Gran % (Auto) Neut % (Auto) Lymph % (Auto) [place] % (Auto) Eos % (Auto) Baso % (Auto) Absolute Neuts (auto) Absolute Lymphs (auto) Total Counted Differential Comment Diff Path Review Toxic Granulation Platelet Estimate RBC Morphology Hypochromasia Anisocytosis Macrocytosis PT INR APTT 131.5 H* Specimen Type Sample Site pH Bicarbonate Actual POC Total CO2 Base Excess O2 Saturation O2 % ABG pCO2 ABG pO2 Rod Test Respiration Rate O2 Delivery Device Vent Mode Tidal Volume POC PEEP Blood Gas Notified Whom Blood Gas Notified Time Sodium Potassium Chloride Carbon Dioxide Anion Gap BUN Creatinine Estim Creat Clear Calc Est GFR (MDRD) Af Amer Est GFR (MDRD) Non-Af BUN/Creatinine Ratio Glucose Lactic Acid Calcium Phosphorus Magnesium Total Bilirubin AST ALT Alkaline Phosphatase Total Creatine Kinase Total Protein Albumin Globulin Albumin/Globulin Ratio Triglycerides Random Vancomycin Blood Type Antibody Screen Crossmatch Assessment/Plan All Active Problems (Last Reviewed 05/04/18 @ 08:39 by Prasanth Pradhan MD) Gross hematuria (Acute) Overweight (Acute) MASOOD (obstructive sleep apnea) (Acute) Colovesical fistula (Acute) Large bowel anastomotic leak (Acute) Sepsis associated hypotension (Acute) Perforated abdominal viscus (Acute) Perforated viscus (Acute) Acute kidney injury (Acute) 1-acute kidney injury most probably from hemodynamic instability. Creatinine peaked at 2.15 mg a deciliter on May 18. Creatinine improved with hemodynamic stabilization. Creatinine down to 1.35. No need for renal replacement therapy. Please keep mean arterial pressure more than 65. Avoid nephrotoxic's. Dose medication for the current GFR Check renal function in the morning 2-hypokalemia. Mild. Replacement as per the ICU protocol. 3-colovesical fistula status post colectomy and colostomy. Management as per the surgery team. 4-septic shock. Hemodynamic stabilization as per ICU team. Antibiotics as per the ID. Please dose for the current GFR. 5-respiratory failure. On vent support as per the ICU team. Renal team will continue to follow. Thank you for the consult. Please call with any question or concern at my cell phone #[phone] Octaviano Snu MD
--- NOTE | 2018-05-18 17:20 | CON.PCM_ITS ---
Problem List (1) Acute kidney injury Status: Acute Consultation - Renal PCP/ Referring MD: Requesting physician: [] Primary care physician: Gina Wong NP - History of Present Illness History of Present Illness: The patient is a 62 year old M who was admitted for hematuria . 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 Patient was taken to the OR for colectomy . Hospital course was complicated with perforation. She was taken to the OR again and 05/16 for repair of mid jejunum perforation. Patient currently has colostomy bag. Currently in ICU intubated. FiO2 60%. Renal team was consulted for acute kidney injury. Creatinine peaked at 2.1 mg a deciliter yesterday. Creatinine better today at 1.35. Patient is making decent amount of urine but the urine output has decreased for the last 5 hours to around 20 mL/h. Patient is awake alert following command. Patient is on 2 pressors, Levophed and vasopressin for hemodynamic support . ROS : Unobtainable due to the patient's condition. He is intubated - Allergies Allergies: Allergies No Known Allergies Allergy (Verified 05/03/18 07:02) - Current Medications Current Medications: Current Medications Albuterol/Ipratropium (Duoneb) 3 ml INHALATION Q4H.RT PRN PRN Reason: WHEEZING Last Admin: 05/18/18 15:55 Dose: 3 ml Atorvastatin Calcium (Lipitor) 40 mg NG HS [facility] Bisacodyl (Dulcolax) 5 mg PO DAILY PRN PRN PRN Reason: Constipation Chlorhexidine Gluconate () 15 ml PO BID [facility] Last Admin: 05/18/18 09:58 Dose: 15 ml Chlorhexidine Gluconate () 1 each TOPICAL DAILY [facility] Docusate Sodium (Colace Syrup) 100 mg NG BID [facility] Last Admin: 05/18/18 10:04 Dose: Not Given Heparin Sodium (Porcine) (Heparin Na) 0 unit IV UD PRN; Protocol Meropenem 1 gm/ Sodium (Chloride) 120 mls @ 33 mls/hr IV Q8 [facility] Last Admin: 05/18/18 14:35 Dose: 33 mls/hr Vancomycin IV Pharmacy to Dose (1 ea/ Sodium Chloride) 500 mls @ 250 mls/hr IV PRN PRN; Protocol PRN Reason: Rx to Dose Vasopressin 40 units/ Sodium (Chloride) 52 mls @ 3.12 mls/hr IV .[id number] [facility] Last Admin: 05/18/18 14:37 Dose: 3.12 mls/hr Pantoprazole Sodium 40 mg/ (Sodium Chloride) 110 mls @ 330 mls/hr IV Q24 [facility] Last Admin: 05/18/18 10:03 Dose: 330 mls/hr Fentanyl () 100 mls @ 5 mls/hr IV .Q20H [facility]; Protocol Last Admin: 05/18/18 04:45 Dose: 5 mls/hr Propofol (Diprivan) 1,000 mg in 100 mls @ 6.618 mls/hr CONT INF .Q12H [facility]; Protocol Last Admin: 05/18/18 04:45 Dose: 6.618 mls/hr Heparin Sodium/Dextrose () 25,000 units in 250 mls @ 16 mls/hr IV .[id number] [facility]; Protocol Last Admin: 05/18/18 08:13 Dose: 16 mls/hr Norepinephrine Bitartrate 8 mg (/ Dextrose) 258 mls @ 9.68 mls/hr IV .[id number] [facility] Last Admin: 05/18/18 12:37 Dose: 9.68 mls/hr Vancomycin HCl (Vancomycin) 1,000 mg in 200 mls @ 200 mls/hr IV Q12H [facility] Last Admin: 05/18/18 12:37 Dose: 200 mls/hr Magnesium Hydroxide (Milk Of Magnesia) 30 ml NG DAILY PRN PRN Reason: Constipation Magnesium Oxide (Mag-Ox 400) 400 mg NG DAILY [facility] Last Admin: 05/18/18 10:04 Dose: Not Given Ondansetron HCl (Zofran) 4 mg IV Q6H PRN PRN PRN Reason: Nausea Last Admin: 05/16/18 04:56 Dose: 4 mg Sodium Chloride () 5 - 15 ml IV UD PRN PRN Reason: SALINE FLUSH Last Admin: 05/17/18 05:18 Dose: 10 ml Sodium Hypochlorite (Dakins Solution 0.25% (1/2 Strength)) 1 applic TOPICAL BID [facility]; Protocol Last Admin: 05/18/18 08:43 Dose: Not Given - Past Medical History Past Medical History (Chronic Problems): Chronic Problems (Last Reviewed 05/04/18 @ 08:39 by Prasanth Pradhan MD) Tobacco dependence (Chronic) Pulmonary hypertension (Chronic) Atherosclerotic heart disease of [place] coronary artery without angina pectoris (Chronic) Mild 25-50% stenosis mid LAD Severe left ventricular systolic dysfunction (Chronic) 30% EF in August 2017 with moderate global right ventricular systolic dysfunction, severe left atrial enlargement, left atrial appendage thrombus, severely enlarged right atrium moderate aortic valve stenosis Nonrheumatic aortic (valve) stenosis (Chronic) 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 (Chronic) 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 - Social History Smoking Status: Current every day smoker Alcohol: Occasional Drugs: None - Family History Maternal Family History: Family History (Last Reviewed 09/20/17 @ 11:46 by Faith Singh) Mother History of DVT (deep vein thrombosis) Father Atrial fibrillation Diabetes Sister History of DVT (deep vein thrombosis) Brother History of DVT (deep vein thrombosis) Sibling Family History: Family History (Last Reviewed 09/20/17 @ 11:46 by Faith Singh) Mother History of DVT (deep vein thrombosis) Father Atrial fibrillation Diabetes Sister History of DVT (deep vein thrombosis) Brother History of DVT (deep vein thrombosis) History Items: - - Both his brother and sister have a factor V deficiency Patient Problems: Active and Suspected Problems (Last Reviewed 05/04/18 @ 08:39 by Prasanth Pradhan MD) Gross hematuria (Acute) Overweight (Acute) MASOOD (obstructive sleep apnea) (Acute) non-compliant with CPAP Peripheral arterial disease (Suspected) Colovesical fistula (Acute) Large bowel anastomotic leak (Acute) Sepsis associated hypotension (Acute) Perforated abdominal viscus (Acute) Perforated viscus (Acute) Acute kidney injury (Acute) - Physical Exam General: Alert, No apparent distress HEENT: Atraumatic Oral: Moist Mucosa Neck: Supple, No JVD Lungs: - - Patient is on vent support. Equal air entry. No wheezing no crackles Cardiovascular: Regular rate, Tachycardic Abdomen: - - Distended, no bowel sounds Extremities: Edema - +2 edema of lower extremities Lymphatic: No Cervical, Supraclavicular, or Inguinal Adenopathy Neurological: Neuro grossly intact Psych/Mental Status: Appropriate Vital Signs Temp Pulse Resp BP Pulse Ox 97.1 F L 112 H 16 87/60 L 93 05/18/18 16:00 05/18/18 17:00 05/18/18 17:00 05/18/18 17:00 05/18/18 17:00 Oxygen Flow Rate (L/min) 15 Oxygen Delivery Method Mechanical Ventilator Weight: 114.7 kg Body Mass Index (BMI) 29.9 Intake and Output for Last 24 Hours 05/16/18 05/17/18 05/18/18 23:59 23:59 23:59 Intake Total 1985 / 1985 1295 / 1295 3448.1 / 3448.1 Output Total 1550 / 1550 785 / 785 2185 / 2185 Balance 436 / 436 510 / 510 1263.1 / 1263.1 Microbiology Past 72 Hours 05/12/18 17:05 Blood Culture - Final Blood Culture (Wb) - Anticubital Left No growth in 5 days. 05/12/18 17:10 Blood Culture - Final Blood Culture (Wb) - Left Hand No growth in 5 days. Laboratory Tests Past 24 Hrs 05/17/18 05/17/18 05/17/18 17:00 17:00 21:18 WBC 20.2 H RBC 2.39 L Hgb 8.7 L Hct 25.4 L MCV 106.3 H MCH 36.4 H MCHC 34.3 RDW 15.2 H RDW Differential 58.7 H Plt Count 421 MPV 11.0 Immature Gran % (Auto) 1.300 H Neut % (Auto) 90.4 H Lymph % (Auto) 2.3 L [place] % (Auto) 5.9 Eos % (Auto) 0.0 Baso % (Auto) 0.1 Absolute Neuts (auto) 18.2 H Absolute Lymphs (auto) 0.47 L Total Counted Not Reportable Differential Comment SEE COMMENT Diff Path Review May foll Toxic Granulation RARE Platelet Estimate SLT INC RBC Morphology Hypochromasia 2+ Anisocytosis 2+ Macrocytosis 2+ PT INR APTT Specimen Type Sample Site pH Bicarbonate Actual POC Total CO2 Base Excess O2 Saturation O2 % ABG pCO2 ABG pO2 Rod Test Respiration Rate O2 Delivery Device Vent Mode Tidal Volume POC PEEP Blood Gas Notified Whom Blood Gas Notified Time Sodium Potassium Chloride Carbon Dioxide Anion Gap BUN Creatinine Estim Creat Clear Calc Est GFR (MDRD) Af Amer Est GFR (MDRD) Non-Af BUN/Creatinine Ratio Glucose Lactic Acid Calcium Phosphorus Magnesium Total Bilirubin AST ALT Alkaline Phosphatase Total Creatine Kinase Total Protein Albumin Globulin Albumin/Globulin Ratio Triglycerides Random Vancomycin Blood Type A POSITIVE Antibody Screen NEGATIVE Crossmatch See Detail 05/17/18 05/17/18 05/17/18 21:18 21:18 21:18 WBC RBC Hgb Hct MCV MCH MCHC RDW RDW Differential Plt Count MPV Immature Gran % (Auto) Neut % (Auto) Lymph % (Auto) [place] % (Auto) Eos % (Auto) Baso % (Auto) Absolute Neuts (auto) Absolute Lymphs (auto) Total Counted Differential Comment Diff Path Review Toxic Granulation Platelet Estimate RBC Morphology Hypochromasia Anisocytosis Macrocytosis PT 21.7 H INR 1.9 APTT Specimen Type Sample Site pH Bicarbonate Actual POC Total CO2 Base Excess O2 Saturation O2 % ABG pCO2 ABG pO2 Rod Test Respiration Rate O2 Delivery Device Vent Mode Tidal Volume POC PEEP Blood Gas Notified Whom Blood Gas Notified Time Sodium 134 L Potassium 3.2 L Chloride 93 L Carbon Dioxide 29.0 Anion Gap 12 BUN 47 H Creatinine 1.63 H Estim Creat Clear Calc 52.24 Est GFR (MDRD) Af Amer 56 L Est GFR (MDRD) Non-Af 46 L BUN/Creatinine Ratio 28.8 H Glucose 149 H Lactic Acid Calcium 7.5 L Phosphorus 5.1 H Magnesium 3.0 H Total Bilirubin 1.30 H AST 69 H ALT 35 Alkaline Phosphatase 90 Total Creatine Kinase Total Protein 5.9 L Albumin 2.2 L Globulin 3.7 Albumin/Globulin Ratio 0.6 L Triglycerides Random Vancomycin Blood Type Antibody Screen Crossmatch 05/17/18 05/18/18 05/18/18 22:02 04:50 04:50 WBC 16.3 H RBC 3.23 L Hgb 11.2 L Hct 33.5 L MCV 103.7 H MCH 34.7 H MCHC 33.4 RDW 18.1 H RDW Differential 68.9 H Plt Count 452 H MPV 11.4 Immature Gran % (Auto) 1.900 H Neut % (Auto) 85.3 H Lymph % (Auto) 3.9 L [place] % (Auto) 8.5 Eos % (Auto) 0.2 Baso % (Auto) 0.2 Absolute Neuts (auto) 13.9 H Absolute Lymphs (auto) 0.64 L Total Counted Not Reportable Differential Comment Diff Path Review Toxic Granulation 2+ Platelet Estimate SLT INC RBC Morphology RARE Hypochromasia 1+ Anisocytosis 1+ Macrocytosis 1+ PT 18.6 H INR 1.6 APTT Specimen Type Sample Site pH Bicarbonate Actual POC Total CO2 Base Excess O2 Saturation O2 % ABG pCO2 ABG pO2 Rod Test Respiration Rate O2 Delivery Device Vent Mode Tidal Volume POC PEEP Blood Gas Notified Whom Blood Gas Notified Time Sodium Potassium Chloride Carbon Dioxide Anion Gap BUN Creatinine Estim Creat Clear Calc Est GFR (MDRD) Af Amer Est GFR (MDRD) Non-Af BUN/Creatinine Ratio Glucose Lactic Acid 1.2 Calcium Phosphorus Magnesium Total Bilirubin AST ALT Alkaline Phosphatase Total Creatine Kinase Total Protein Albumin Globulin Albumin/Globulin Ratio Triglycerides Random Vancomycin Blood Type Antibody Screen Crossmatch 05/18/18 05/18/18 05/18/18 04:50 04:50 04:50 WBC RBC Hgb Hct MCV MCH MCHC RDW RDW Differential Plt Count MPV Immature Gran % (Auto) Neut % (Auto) Lymph % (Auto) [place] % (Auto) Eos % (Auto) Baso % (Auto) Absolute Neuts (auto) Absolute Lymphs (auto) Total Counted Differential Comment Diff Path Review Toxic Granulation Platelet Estimate RBC Morphology Hypochromasia Anisocytosis Macrocytosis PT INR APTT Specimen Type Sample Site pH Bicarbonate Actual POC Total CO2 Base Excess O2 Saturation O2 % ABG pCO2 ABG pO2 Rod Test Respiration Rate O2 Delivery Device Vent Mode Tidal Volume POC PEEP Blood Gas Notified Whom Blood Gas Notified Time Sodium 135 L Potassium 3.4 L Chloride 99 Carbon Dioxide 25.0 Anion Gap 11 BUN 44 H Creatinine 1.35 H Estim Creat Clear Calc 63.07 Est GFR (MDRD) Af Amer 69 Est GFR (MDRD) Non-Af 57 L BUN/Creatinine Ratio 32.6 H Glucose 123 H Lactic Acid 1.7 Calcium 6.9 L Phosphorus 5.1 H Magnesium 2.8 H Total Bilirubin 1.80 H AST 77 H ALT 31 Alkaline Phosphatase 88 Total Creatine Kinase 171 Total Protein 4.9 L Albumin 1.7 L Globulin 3.2 Albumin/Globulin Ratio 0.5 L Triglycerides 80 Random Vancomycin Blood Type Antibody Screen Crossmatch 05/18/18 05/18/18 05/18/18 04:50 04:52 10:10 WBC RBC Hgb Hct MCV MCH MCHC RDW RDW Differential Plt Count MPV Immature Gran % (Auto) Neut % (Auto) Lymph % (Auto) [place] % (Auto) Eos % (Auto) Baso % (Auto) Absolute Neuts (auto) Absolute Lymphs (auto) Total Counted Differential Comment Diff Path Review Toxic Granulation Platelet Estimate RBC Morphology Hypochromasia Anisocytosis Macrocytosis PT INR APTT 40.4 H Specimen Type CLEOPATRA Sample Site R Radial pH 7.31 L Bicarbonate Actual 23.8 POC Total CO2 25 Base Excess -2 O2 Saturation 86 L O2 % 60 ABG pCO2 46.9 H ABG pO2 56 L Rod Test NA Respiration Rate 12 O2 Delivery Device Vent Vent Mode A-C Tidal Volume 600 POC PEEP 5 Blood Gas Notified Whom ICU MD Blood Gas Notified Time 449 Sodium Potassium Chloride Carbon Dioxide Anion Gap BUN Creatinine Estim Creat Clear Calc Est GFR (MDRD) Af Amer Est GFR (MDRD) Non-Af BUN/Creatinine Ratio Glucose Lactic Acid Calcium Phosphorus Magnesium Total Bilirubin AST ALT Alkaline Phosphatase Total Creatine Kinase Total Protein Albumin Globulin Albumin/Globulin Ratio Triglycerides Random Vancomycin 7.5 Blood Type Antibody Screen Crossmatch 05/18/18 14:35 WBC RBC Hgb Hct MCV MCH MCHC RDW RDW Differential Plt Count MPV Immature Gran % (Auto) Neut % (Auto) Lymph % (Auto) [place] % (Auto) Eos % (Auto) Baso % (Auto) Absolute Neuts (auto) Absolute Lymphs (auto) Total Counted Differential Comment Diff Path Review Toxic Granulation Platelet Estimate RBC Morphology Hypochromasia Anisocytosis Macrocytosis PT INR APTT 131.5 H* Specimen Type Sample Site pH Bicarbonate Actual POC Total CO2 Base Excess O2 Saturation O2 % ABG pCO2 ABG pO2 Rod Test Respiration Rate O2 Delivery Device Vent Mode Tidal Volume POC PEEP Blood Gas Notified Whom Blood Gas Notified Time Sodium Potassium Chloride Carbon Dioxide Anion Gap BUN Creatinine Estim Creat Clear Calc Est GFR (MDRD) Af Amer Est GFR (MDRD) Non-Af BUN/Creatinine Ratio Glucose Lactic Acid Calcium Phosphorus Magnesium Total Bilirubin AST ALT Alkaline Phosphatase Total Creatine Kinase Total Protein Albumin Globulin Albumin/Globulin Ratio Triglycerides Random Vancomycin Blood Type Antibody Screen Crossmatch Assessment/Plan All Active Problems (Last Reviewed 05/04/18 @ 08:39 by Prasanth Pradhan MD) Gross hematuria (Acute) Overweight (Acute) MASOOD (obstructive sleep apnea) (Acute) Colovesical fistula (Acute) Large bowel anastomotic leak (Acute) Sepsis associated hypotension (Acute) Perforated abdominal viscus (Acute) Perforated viscus (Acute) Acute kidney injury (Acute) 1-acute kidney injury most probably from hemodynamic instability. Creatinine peaked at 2.15 mg a deciliter on May 18. Creatinine improved with hemodynamic stabilization. Creatinine down to 1.35. No need for renal replacement therapy. Please keep mean arterial pressure more than 65. Avoid nephrotoxic's. Dose medication for the current GFR Check renal function in the morning 2-hypokalemia. Mild. Replacement as per the ICU protocol. 3-colovesical fistula status post colectomy and colostomy. Management as per the surgery team. 4-septic shock. Hemodynamic stabilization as per ICU team. Antibiotics as per the ID. Please dose for the current GFR. 5-respiratory failure. On vent support as per the ICU team. Renal team will continue to follow. Thank you for the consult. Please call with any question or concern at my cell phone #[phone] Octaviano Sun MD
[2018-05-18] MEDS: Lactated Ringers 1,000 ML 999 ML IV (20:18)
[2018-05-18 20:25] LABS: Hematocrit 36.8 % (40-54); Hemoglobin 12.3 g/dl (13.0-16.5); Mean Corp Hgb Conc 33.4 g/gl (32-36); Mean Corpuscular Hgb 34.3 pg (27.0-32.0); Mean Corpuscular Volume 102.5 fL (80-94); Mean Platelet Vol. 11.4 fl (6.2-12.0); Platelet Count 454 K/mm3 (150-450); RBC Distribution Width CV 18.9 % (11.6-14.6); RBC Distribution Width SD 70.8 fl (35.1-43.9); Red Blood Count 3.59 M/mm3 (4.6-6.2)
[2018-05-18 20:26] LABS: Differential Indicated MANUAL DIFF; POSITIVE COUNT YES; POSITIVE DIFFERENTIAL YES; POSITIVE MORPHOLOGY YES
[2018-05-18 20:44] LABS: Lymphocyte 5 % (19-41); Monocyte 3 % (0-10); Neutrophil-Band 4 % (0-5); Neutrophil-Segmented 88 % (47-70); Total Cells Counted 100 (MANUAL DIFF)
[2018-05-18 20:45] LABS: Macrocytosis 1+
[2018-05-18 20:46] LABS: Anisocytosis 1+; Red Cell Morphology N CHROM NORMAL (NORM C&C)
[2018-05-18 20:48] LABS: Platelet Estimate SLT (ADEQ)
[2018-05-18 20:50] LABS: Absolute Lymphocyte Count 1.05 X10^3/ul (0.83-4.51); Absolute Neutrophil Count 19.3 X10^3/uL (2.0-7.7)
[2018-05-18] MEDS: Atorvastatin Calcium 40 MG Tablet NG (21:17)
[2018-05-18 21:50] LABS: Partial Thromboplast Time 87.5 Seconds (24.1-36.2)
[2018-05-18] MEDS: 0.9% NaCl Peripheral Flush Adult/Peds IV ×2 (22:43→23:50)
[2018-05-19] VITALS (51 sets, daily range): BP systolic 78–105; BP diastolic 51–62; PULSE 101–119; RESP 15–27; TEMP 36.3–36.7; O2SAT 89–98
[2018-05-19] MEDS: Vancomycin IV 1,000 MG/200 ML BAG 200 MG IV (00:50)
[2018-05-19] MEDS: HEPARIN/D5w 25,000 UNITS 25,000 UNITS/250 ML IV.SOLN. 16 UNITS IV (03:02)
[2018-05-19 04:22] LABS: Differential Indicated MANUAL DIFF; Hematocrit 33.9 % (40-54); Hemoglobin 11.6 g/dl (13.0-16.5); International Normalized Ratio 1.4; Mean Corp Hgb Conc 34.2 g/gl (32-36); Mean Corpuscular Hgb 34.7 pg (27.0-32.0); Mean Corpuscular Volume 101.5 fL (80-94); Mean Platelet Vol. 11.7 fl (6.2-12.0); POSITIVE COUNT YES; POSITIVE DIFFERENTIAL YES; POSITIVE MORPHOLOGY YES; Platelet Count 446 K/mm3 (150-450); RBC Distribution Width CV 18.7 % (11.6-14.6); RBC Distribution Width SD 69.4 fl (35.1-43.9); Red Blood Count 3.34 M/mm3 (4.6-6.2); White Blood Count 23.2 K/mm3 (4.4-11.0)
[2018-05-19] MEDS: CHLORHEXIDINE GLUC 2% CLOTH 1 EACH TOWELETTE TOPICAL (05:03)
[2018-05-19 05:09] LABS: ALB/GLOB Ratio 0.4 RATIO (0.9-2.4); AST(SGOT) 76 U/L (15-37); Alanine Aminotransfer ALT/SGPT 25 U/L (16-61); Albumin, Serum 1.4 g/dL (3.2-5.0); Alkaline Phosphatase 96 U/L (45-117); Anion Gap 11 (5-15); BUN 51 mg/dL (7-18); Chloride 100 mmol/L (98-107); Globulin 3.4 g/dL (2.2-4.2); Glucose 150 mg/dL (74-106); Magnesium 2.8 mg/dL (1.6-2.6); Phosphorus 4.7 mg/dL (2.5-4.9); Potassium 3.3 mmol/L (3.5-5.1); Protein, Total 4.8 g/dL (6.4-8.2); Sodium Level 134 mmol/L (136-145)
[2018-05-19 05:11] LABS: BUN/Creat Ratio 25.5 RATIO (10-20); Calcium,Total 6.4 mg/dL (8.5-10.1); EST Glomerular Filtration Rate 36 mL/min (>60); Est Glom Filt Rate - Afr Amer 44 mL/min (>60); Estimated Creatinine Clearance 42.57 ml/min
[2018-05-19 05:22] LABS: Partial Thromboplast Time 84.2 Seconds (24.1-36.2)
--- NOTE | 2018-05-19 06:32 | PCM.PN.INT ---
Subjective: The patient was seen and examined at the bedside this morning. Events from the last 24 hours have been reviewed. Although the patient remains afebrile, he continues to require 30 mcg of Levophed and vasopressin to maintain hemodynamic stability. The patient was given a total of 1 L of lactated Ringer's overnight. He is currently overall net +10.6 L for the admission. His weight is up significantly. He is currently sedated on fentanyl at 50 mcgs. Propofol was discontinued yesterday. The patient's urine output is decreasing. His creatinine has risen. Nephrology is on board and following. The patient's white blood cell count continues to increase. His H&H remains stable. He remains on a heparin drip. Potassium is low this morning at 3.3. Objective: The patient's most recent lab work, culture data and imaging studies have all been personally reviewed. Blood and urine cultures are pending. A transesophageal echocardiogram from August 2017 revealed evidence of a moderately severe global LV systolic dysfunction with an ejection fraction of 30%. There is also evidence of moderate global RV systolic dysfunction. There was moderate aortic valve stenosis. General: - - The patient is minimally sedated and responsive on assist control mode mechanical ventilation. No ventilator dyssynchrony noted. HEENT: Atraumatic, PERRLA, Normocephalic Oral: No Gingival or Mucosal Lesions/ Ulcerations, - - Endotracheal tube remains in place. NG tube currently in place. Neck: Supple, No Nodes, Trachea Midline, - - Triple-lumen catheter remains in place. Lungs: No wheeze, No rales, Diminished, Rhonchi Cardiovascular: Normal S1, Normal S2, Tachycardic, - - Sinus tachycardia noted on telemetry. Abdomen: Distended, - - Postsurgical sites remain intact. Retention sutures in place. Ostomy site intact. RICARDO drains in place. Extremities: No clubbing, No cyanosis, Edema Skin: - - No significant change from previous. Musculoskeletal: No Tenderness to Palpation of Joints or Extremities Lymphatic: No Cervical, Supraclavicular, or Inguinal Adenopathy Neurological: Neuro grossly intact, - - The patient is alert and minimally sedated. RASS of -1 noted. Vital Signs Temp Pulse Resp BP Pulse Ox 36.4 C L 115 H 15 85/55 L 91 05/19/18 04:00 05/19/18 06:00 05/19/18 06:00 05/19/18 06:00 05/19/18 05:00 Oxygen Flow Rate (L/min) 60 Oxygen Delivery Method Mechanical Ventilator Weight: 254 lb 6.615 oz Body Mass Index (BMI) 29.9 Intake and Output for Last 24 Hours 05/17/18 05/18/18 05/19/18 23:59 23:59 23:59 Intake Total 1295 / 1295 5822.2 / 5822.2 791.9 / 791.9 Output Total 785 / 785 3075 / 3075 410 / 410 Balance 510 / 510 2747.2 / 2747.2 381.9 / 381.9 Labs (Last 48 Hours) 05/17/18 05/17/18 05/17/18 05:15 08:13 09:50 WBC RBC Hgb Hct MCV MCH MCHC RDW RDW Differential Plt Count MPV Immature Gran % (Auto) Neut % (Auto) Lymph % (Auto) Webb % (Auto) Eos % (Auto) Baso % (Auto) Absolute Neuts (auto) Absolute Lymphs (auto) Total Counted Not Reportable Neutrophils % (Manual) Band Neutrophils % Lymphocytes % (Manual) Monocytes % (Manual) Differential Comment Diff Path Review Reviewed Toxic Granulation Platelet Estimate RBC Morphology Hypochromasia Anisocytosis Macrocytosis PT 67.3 H INR 7.8 H* APTT Specimen Type Sample Site pH Bicarbonate Actual POC Total CO2 Base Excess O2 Saturation O2 % ABG pCO2 ABG pO2 Rod Test Respiration Rate O2 Delivery Device Vent Mode Tidal Volume POC PEEP Blood Gas Notified Whom Blood Gas Notified Time Sodium Potassium Chloride Carbon Dioxide Anion Gap BUN Creatinine Estim Creat Clear Calc Est GFR (MDRD) Af Amer Est GFR (MDRD) Non-Af BUN/Creatinine Ratio Glucose Lactic Acid Calcium Phosphorus Magnesium Total Bilirubin AST ALT Alkaline Phosphatase Total Creatine Kinase Total Protein Albumin Globulin Albumin/Globulin Ratio Triglycerides Cortisol Random Vancomycin MRSA (PCR) Negative Blood Type Antibody Screen Crossmatch 05/17/18 05/17/18 05/17/18 10:05 12:50 13:00 WBC RBC Hgb Hct MCV MCH MCHC RDW RDW Differential Plt Count MPV Immature Gran % (Auto) Neut % (Auto) Lymph % (Auto) Webb % (Auto) Eos % (Auto) Baso % (Auto) Absolute Neuts (auto) Absolute Lymphs (auto) Total Counted Neutrophils % (Manual) Band Neutrophils % Lymphocytes % (Manual) Monocytes % (Manual) Differential Comment Diff Path Review Toxic Granulation Platelet Estimate RBC Morphology Hypochromasia Anisocytosis Macrocytosis PT INR APTT Specimen Type Sample Site pH Bicarbonate Actual POC Total CO2 Base Excess O2 Saturation O2 % ABG pCO2 ABG pO2 Rod Test Respiration Rate O2 Delivery Device Vent Mode Tidal Volume POC PEEP Blood Gas Notified Whom Blood Gas Notified Time Sodium Potassium Chloride Carbon Dioxide Anion Gap BUN Creatinine Estim Creat Clear Calc Est GFR (MDRD) Af Amer Est GFR (MDRD) Non-Af BUN/Creatinine Ratio Glucose Lactic Acid 1.4 Calcium Phosphorus Magnesium Total Bilirubin AST ALT Alkaline Phosphatase Total Creatine Kinase Total Protein Albumin Globulin Albumin/Globulin Ratio Triglycerides Cortisol 43.20 H 49.50 H Random Vancomycin MRSA (PCR) Blood Type Antibody Screen Crossmatch 05/17/18 05/17/18 05/17/18 14:00 17:00 17:00 WBC RBC Hgb Hct MCV MCH MCHC RDW RDW Differential Plt Count MPV Immature Gran % (Auto) Neut % (Auto) Lymph % (Auto) Webb % (Auto) Eos % (Auto) Baso % (Auto) Absolute Neuts (auto) Absolute Lymphs (auto) Total Counted Neutrophils % (Manual) Band Neutrophils % Lymphocytes % (Manual) Monocytes % (Manual) Differential Comment Diff Path Review Toxic Granulation Platelet Estimate RBC Morphology Hypochromasia Anisocytosis Macrocytosis PT INR APTT Specimen Type Sample Site pH Bicarbonate Actual POC Total CO2 Base Excess O2 Saturation O2 % ABG pCO2 ABG pO2 Rod Test Respiration Rate O2 Delivery Device Vent Mode Tidal Volume POC PEEP Blood Gas Notified Whom Blood Gas Notified Time Sodium Potassium Chloride Carbon Dioxide Anion Gap BUN Creatinine Estim Creat Clear Calc Est GFR (MDRD) Af Amer Est GFR (MDRD) Non-Af BUN/Creatinine Ratio Glucose Lactic Acid Calcium Phosphorus Magnesium Total Bilirubin AST ALT Alkaline Phosphatase Total Creatine Kinase Total Protein Albumin Globulin Albumin/Globulin Ratio Triglycerides Cortisol 60.60 H Random Vancomycin MRSA (PCR) Blood Type A POSITIVE Antibody Screen NEGATIVE Crossmatch See Detail 05/17/18 05/17/18 05/17/18 21:18 21:18 21:18 WBC 20.2 H RBC 2.39 L Hgb 8.7 L Hct 25.4 L MCV 106.3 H MCH 36.4 H MCHC 34.3 RDW 15.2 H RDW Differential 58.7 H Plt Count 421 MPV 11.0 Immature Gran % (Auto) 1.300 H Neut % (Auto) 90.4 H Lymph % (Auto) 2.3 L Webb % (Auto) 5.9 Eos % (Auto) 0.0 Baso % (Auto) 0.1 Absolute Neuts (auto) 18.2 H Absolute Lymphs (auto) 0.47 L Total Counted Not Reportable Neutrophils % (Manual) Band Neutrophils % Lymphocytes % (Manual) Monocytes % (Manual) Differential Comment SEE COMMENT Diff Path Review May foll Toxic Granulation RARE Platelet Estimate SLT INC RBC Morphology Hypochromasia 2+ Anisocytosis 2+ Macrocytosis 2+ PT 21.7 H INR 1.9 APTT Specimen Type Sample Site pH Bicarbonate Actual POC Total CO2 Base Excess O2 Saturation O2 % ABG pCO2 ABG pO2 Rod Test Respiration Rate O2 Delivery Device Vent Mode Tidal Volume POC PEEP Blood Gas Notified Whom Blood Gas Notified Time Sodium 134 L Potassium 3.2 L Chloride 93 L Carbon Dioxide 29.0 Anion Gap 12 BUN 47 H Creatinine 1.63 H Estim Creat Clear Calc 52.24 Est GFR (MDRD) Af Amer 56 L Est GFR (MDRD) Non-Af 46 L BUN/Creatinine Ratio 28.8 H Glucose 149 H Lactic Acid Calcium 7.5 L Phosphorus Magnesium Total Bilirubin 1.30 H AST 69 H ALT 35 Alkaline Phosphatase 90 Total Creatine Kinase Total Protein 5.9 L Albumin 2.2 L Globulin 3.7 Albumin/Globulin Ratio 0.6 L Triglycerides Cortisol Random Vancomycin MRSA (PCR) Blood Type Antibody Screen Crossmatch 05/17/18 05/17/18 05/18/18 21:18 22:02 04:50 WBC 16.3 H RBC 3.23 L Hgb 11.2 L Hct 33.5 L MCV 103.7 H MCH 34.7 H MCHC 33.4 RDW 18.1 H RDW Differential 68.9 H Plt Count 452 H MPV 11.4 Immature Gran % (Auto) 1.900 H Neut % (Auto) 85.3 H Lymph % (Auto) 3.9 L Webb % (Auto) 8.5 Eos % (Auto) 0.2 Baso % (Auto) 0.2 Absolute Neuts (auto) 13.9 H Absolute Lymphs (auto) 0.64 L Total Counted Not Reportable Neutrophils % (Manual) Band Neutrophils % Lymphocytes % (Manual) Monocytes % (Manual) Differential Comment Diff Path Review Toxic Granulation 2+ Platelet Estimate SLT INC RBC Morphology RARE Hypochromasia 1+ Anisocytosis 1+ Macrocytosis 1+ PT INR APTT Specimen Type Sample Site pH Bicarbonate Actual POC Total CO2 Base Excess O2 Saturation O2 % ABG pCO2 ABG pO2 Rod Test Respiration Rate O2 Delivery Device Vent Mode Tidal Volume POC PEEP Blood Gas Notified Whom Blood Gas Notified Time Sodium Potassium Chloride Carbon Dioxide Anion Gap BUN Creatinine Estim Creat Clear Calc Est GFR (MDRD) Af Amer Est GFR (MDRD) Non-Af BUN/Creatinine Ratio Glucose Lactic Acid 1.2 Calcium Phosphorus 5.1 H Magnesium 3.0 H Total Bilirubin AST ALT Alkaline Phosphatase Total Creatine Kinase Total Protein Albumin Globulin Albumin/Globulin Ratio Triglycerides Cortisol Random Vancomycin MRSA (PCR) Blood Type Antibody Screen Crossmatch 05/18/18 05/18/18 05/18/18 04:50 04:50 04:50 WBC RBC Hgb Hct MCV MCH MCHC RDW RDW Differential Plt Count MPV Immature Gran % (Auto) Neut % (Auto) Lymph % (Auto) Webb % (Auto) Eos % (Auto) Baso % (Auto) Absolute Neuts (auto) Absolute Lymphs (auto) Total Counted Neutrophils % (Manual) Band Neutrophils % Lymphocytes % (Manual) Monocytes % (Manual) Differential Comment Diff Path Review Toxic Granulation Platelet Estimate RBC Morphology Hypochromasia Anisocytosis Macrocytosis PT 18.6 H INR 1.6 APTT Specimen Type Sample Site pH Bicarbonate Actual POC Total CO2 Base Excess O2 Saturation O2 % ABG pCO2 ABG pO2 Rod Test Respiration Rate O2 Delivery Device Vent Mode Tidal Volume POC PEEP Blood Gas Notified Whom Blood Gas Notified Time Sodium 135 L Potassium 3.4 L Chloride 99 Carbon Dioxide 25.0 Anion Gap 11 BUN 44 H Creatinine 1.35 H Estim Creat Clear Calc 63.07 Est GFR (MDRD) Af Amer 69 Est GFR (MDRD) Non-Af 57 L BUN/Creatinine Ratio 32.6 H Glucose 123 H Lactic Acid 1.7 Calcium 6.9 L Phosphorus 5.1 H Magnesium 2.8 H Total Bilirubin 1.80 H AST 77 H ALT 31 Alkaline Phosphatase 88 Total Creatine Kinase Total Protein 4.9 L Albumin 1.7 L Globulin 3.2 Albumin/Globulin Ratio 0.5 L Triglycerides Cortisol Random Vancomycin MRSA (PCR) Blood Type Antibody Screen Crossmatch 05/18/18 05/18/18 05/18/18 04:50 04:50 04:52 WBC RBC Hgb Hct MCV MCH MCHC RDW RDW Differential Plt Count MPV Immature Gran % (Auto) Neut % (Auto) Lymph % (Auto) Webb % (Auto) Eos % (Auto) Baso % (Auto) Absolute Neuts (auto) Absolute Lymphs (auto) Total Counted Neutrophils % (Manual) Band Neutrophils % Lymphocytes % (Manual) Monocytes % (Manual) Differential Comment Diff Path Review Toxic Granulation Platelet Estimate RBC Morphology Hypochromasia Anisocytosis Macrocytosis PT INR APTT 40.4 H Specimen Type CLEOPATRA Sample Site R Radial pH 7.31 L Bicarbonate Actual 23.8 POC Total CO2 25 Base Excess -2 O2 Saturation 86 L O2 % 60 ABG pCO2 46.9 H ABG pO2 56 L Rod Test NA Respiration Rate 12 O2 Delivery Device Vent Vent Mode A-C Tidal Volume 600 POC PEEP 5 Blood Gas Notified Whom ICU MD Blood Gas Notified Time 449 Sodium Potassium Chloride Carbon Dioxide Anion Gap BUN Creatinine Estim Creat Clear Calc Est GFR (MDRD) Af Amer Est GFR (MDRD) Non-Af BUN/Creatinine Ratio Glucose Lactic Acid Calcium Phosphorus Magnesium Total Bilirubin AST ALT Alkaline Phosphatase Total Creatine Kinase 171 Total Protein Albumin Globulin Albumin/Globulin Ratio Triglycerides 80 Cortisol Random Vancomycin MRSA (PCR) Blood Type Antibody Screen Crossmatch 05/18/18 05/18/18 05/18/18 10:10 14:35 20:05 WBC 21.0 H RBC 3.59 L Hgb 12.3 L Hct 36.8 L MCV 102.5 H MCH 34.3 H MCHC 33.4 RDW 18.9 H RDW Differential 70.8 H Plt Count 454 H MPV 11.4 Immature Gran % (Auto) Neut % (Auto) Not Reportable Lymph % (Auto) Webb % (Auto) Eos % (Auto) Baso % (Auto) Absolute Neuts (auto) 19.3 H Absolute Lymphs (auto) 1.05 Total Counted 100 Neutrophils % (Manual) 88 H Band Neutrophils % 4 Lymphocytes % (Manual) 5 L Monocytes % (Manual) 3 Differential Comment Diff Path Review May foll Toxic Granulation Platelet Estimate SLT RBC Morphology N CHROM Hypochromasia Anisocytosis 1+ Macrocytosis 1+ PT INR APTT 131.5 H* Specimen Type Sample Site pH Bicarbonate Actual POC Total CO2 Base Excess O2 Saturation O2 % ABG pCO2 ABG pO2 Rod Test Respiration Rate O2 Delivery Device Vent Mode Tidal Volume POC PEEP Blood Gas Notified Whom Blood Gas Notified Time Sodium Potassium Chloride Carbon Dioxide Anion Gap BUN Creatinine Estim Creat Clear Calc Est GFR (MDRD) Af Amer Est GFR (MDRD) Non-Af BUN/Creatinine Ratio Glucose Lactic Acid Calcium Phosphorus Magnesium Total Bilirubin AST ALT Alkaline Phosphatase Total Creatine Kinase Total Protein Albumin Globulin Albumin/Globulin Ratio Triglycerides Cortisol Random Vancomycin 7.5 MRSA (PCR) Blood Type Antibody Screen Crossmatch 05/18/18 05/19/18 05/19/18 21:15 03:45 03:45 WBC 23.2 H RBC 3.34 L Hgb 11.6 L Hct 33.9 L MCV 101.5 H MCH 34.7 H MCHC 34.2 RDW 18.7 H RDW Differential 69.4 H Plt Count 446 MPV 11.7 Immature Gran % (Auto) Neut % (Auto) Not Reportable Lymph % (Auto) Webb % (Auto) Eos % (Auto) Baso % (Auto) Absolute Neuts (auto) Not Reportable Absolute Lymphs (auto) Total Counted Pending Neutrophils % (Manual) Band Neutrophils % Lymphocytes % (Manual) Monocytes % (Manual) Differential Comment Diff Path Review Toxic Granulation Platelet Estimate RBC Morphology Hypochromasia Anisocytosis Macrocytosis PT 17.0 H INR 1.4 APTT 87.5 H Specimen Type Sample Site pH Bicarbonate Actual POC Total CO2 Base Excess O2 Saturation O2 % ABG pCO2 ABG pO2 Rod Test Respiration Rate O2 Delivery Device Vent Mode Tidal Volume POC PEEP Blood Gas Notified Whom Blood Gas Notified Time Sodium Potassium Chloride Carbon Dioxide Anion Gap BUN Creatinine Estim Creat Clear Calc Est GFR (MDRD) Af Amer Est GFR (MDRD) Non-Af BUN/Creatinine Ratio Glucose Lactic Acid Calcium Phosphorus Magnesium Total Bilirubin AST ALT Alkaline Phosphatase Total Creatine Kinase Total Protein Albumin Globulin Albumin/Globulin Ratio Triglycerides Cortisol Random Vancomycin MRSA (PCR) Blood Type Antibody Screen Crossmatch 05/19/18 05/19/18 03:45 03:45 WBC RBC Hgb Hct MCV MCH MCHC RDW RDW Differential Plt Count MPV Immature Gran % (Auto) Neut % (Auto) Lymph % (Auto) Webb % (Auto) Eos % (Auto) Baso % (Auto) Absolute Neuts (auto) Absolute Lymphs (auto) Total Counted Neutrophils % (Manual) Band Neutrophils % Lymphocytes % (Manual) Monocytes % (Manual) Differential Comment Diff Path Review Toxic Granulation Platelet Estimate RBC Morphology Hypochromasia Anisocytosis Macrocytosis PT INR APTT 84.2 H Specimen Type Sample Site pH Bicarbonate Actual POC Total CO2 Base Excess O2 Saturation O2 % ABG pCO2 ABG pO2 Rod Test Respiration Rate O2 Delivery Device Vent Mode Tidal Volume POC PEEP Blood Gas Notified Whom Blood Gas Notified Time Sodium 134 L Potassium 3.3 L Chloride 100 Carbon Dioxide 23.0 Anion Gap 11 BUN 51 H Creatinine 2.00 H Estim Creat Clear Calc 42.57 Est GFR (MDRD) Af Amer 44 L Est GFR (MDRD) Non-Af 36 L BUN/Creatinine Ratio 25.5 H Glucose 150 H Lactic Acid Calcium 6.4 L* Phosphorus 4.7 Magnesium 2.8 H Total Bilirubin 1.80 H AST 76 H ALT 25 Alkaline Phosphatase 96 Total Creatine Kinase Total Protein 4.8 L Albumin 1.4 L Globulin 3.4 Albumin/Globulin Ratio 0.4 L Triglycerides Cortisol Random Vancomycin MRSA (PCR) Blood Type Antibody Screen Crossmatch Microbiology 05/12/18 17:05 Blood Culture (Wb) - Anticubital Left Blood Culture - Final No growth in 5 days. 05/12/18 17:10 Blood Culture (Wb) - Left Hand Blood Culture - Final No growth in 5 days. Clinical Impression(s) from Imaging Studies Abdomen/Pelvis CT 05/03/18 07:41 IMPRESSION: Large bladder mass as described causing a marked degree of bladder dilatation. Air is seen within the urinary bladder. This may be related to Maldonado catheter manipulation. If not, a colovesical fistula should be ruled out. Electronically Signed: Johnny Neil MD at 9:02 EST , Service support , Chest X-Ray 05/03/18 09:37 IMPRESSION: Mild cardiomegaly. Electronically Signed: Johnny Neil MD at 10:05 EST , Service support , Abdomen/Pelvis CT 05/04/18 07:00 IMPRESSION: Evaluation was performed to evaluate for a colovesical fistula. Please note that a study prior to injection of rectal contrast was not performed. This somewhat limits evaluation. There is hyperdense material in the bladder at time of prior study May 03, 2018 which most likely represented a hematoma. On today's examination again noted is gas as well as hyperdense material within the bladder. There is intimate association with a segment of the sigmoid colon with the urinary bladder. There is a small focus of gas within the bladder at this region. Findings would be concerning for a colovesical fistula. Correlate with urinalysis. Interval placement of a Maldonado catheter. The previously noted bladder hyperdense masslike lesion has significantly decreased in size. Likely representing a large hematoma. Recommend follow-up to ensure resolution. Diverticulosis is present. There is some thickening of the sigmoid colon with some stranding concerning for diverticulitis. Infrarenal abdominal aortic aneurysm. Decreasing right hydronephrosis. Evidence of prior granulomatous disease. Bilateral nephrolithiasis. Electronically Signed: Dawood Morrison at 7:57 EST Tel , Service support , Chest X-Ray 05/10/18 05:55 IMPRESSION: Atelectasis and/or infiltrates at the lung bases worse on the left side with blunting of left costophrenic angle. Electronically Signed: Johnny Neil MD at 9:43 EST , Service support , Chest X-Ray 05/12/18 16:45 IMPRESSION: 1. Decreased bibasilar atelectasis. No organizing infiltrates seen. 2. Gaseous distention of bowel in the upper abdomen, incompletely visualized. 3. Mild cardiomegaly. Electronically Signed: Tunde Cole MD at 17:03 EST , Service support , Abdomen/Pelvis CT 05/13/18 10:28 IMPRESSION: Small bilateral pleural effusions with bibasilar infiltrates and/or atelectasis. Small amount of perihepatic as well as perisplenic fluid as well as fluid in the pelvis. Small amount of fluid in the Colic gutters. Postoperative changes in the region of the umbilicus there Distention of the ascending colon and transverse colon and descending colon down to the region of the anastomosis at the rectosigmoid junction. A Maldonado catheter seen within the urinary bladder. Electronically Signed: Johnny Neil MD at 13:48 EST , Service support , Chest X-Ray 05/13/18 14:18 IMPRESSION: The tip of the right internal jugular venous catheter is in the proximal portion of the superior vena cava. There is no evidence of pneumothorax. Stable appearance of the lungs. Electronically Signed: Johnny Neil MD at 15:52 EST , Service support , Chest X-Ray 05/13/18 19:24 IMPRESSION: Interval placement endotracheal and enteric tubes as above. at 1955 Reported and signed by: Jason Goins MD Electronically Signed: Jason Goins, at 19:54 EST Tel , Service support , Chest X-Ray 05/16/18 09:45 IMPRESSION: Mild degree of increased markings at the lung bases. Free intraperitoneal air with the dilatation of the colon. Electronically Signed: Johnny Neil, at 14:24 EST , Service support , Abdomen CT 05/17/18 11:30 IMPRESSION: 1. Extensive free air and mild free fluid in the anterior abdomen, concerning for possible anastomotic leak. Open wound may be contributory. 2. Dilated small bowel with gradual transition in the pelvis, possibly due to adhesions. 3. Gas in decompressed bladder may be due to catheter placement or fistula. 4. Small pleural effusions. 5. A 3.2 cm infrarenal AAA. 6. Left femoral head collapse, likely secondary to avascular necrosis. Dr. Mayorga discussed the findings with Dr. Woo at 5:28 PM. N.B. : The above information has been verbally conveyed by Aleena Mayorga MD to Dr. Gerardo Woo MD, on 05/17/2018 17:29:57 (ET). Electronically Signed: Aleena Mayorga MD at 17:31 EST Tel , Service support , ADDENDUM: 05/17/18 1738 IMPRESSION: 1. Extensive free air and mild free fluid in the anterior abdomen, concerning for possible anastomotic leak. Open wound may be contributory. 2. Dilated small bowel with gradual transition in the pelvis, possibly due to adhesions. 3. Gas in decompressed bladder may be due to catheter placement or fistula. 4. Small pleural effusions. 5. A 3.2 cm infrarenal AAA. 6. Left femoral head collapse, likely secondary to avascular necrosis. Dr. Mayorga discussed the findings with Dr. Woo at 5:28 PM. N.B. : The above information has been verbally conveyed by Aleena Mayorga MD to Dr. Gerardo Woo MD, on 05/17/2018 17:29:57 (ET). Electronically Signed: Aleena Mayorga MD at 17:31 EST Tel , Service support , KUB X-Ray 05/17/18 22:56 IMPRESSION: NG tube terminates in the gastric antrum. Electronically Signed: Aleena Mayorga MD at 23:58 EST Tel , Service support , Abdomen CT 05/17/18 22:59 IMPRESSION: Large amount of free intraperitoneal air and moderate free fluid similar to previous. As noted on the prior study, this is more than is normally seen postoperatively and is concerning for bowel perforation or perhaps wound dehiscence. No extraluminal enteric contrast identified. However there is pneumatosis and wall thickening of the ascending colon with immediately adjacent foci of extraluminal air; suspicious for perforation here. Enteric contrast has not yet reached this loop of bowel. Slight interval worsening of bibasal atelectasis versus pneumonia. Several other chronic findings as above similar to prior. Individualized dose optimization techniques were used for this CT. at 0042 Reported and signed by: Jason Goins MD Electronically Signed: Jason Goins, at 0:40 EST Tel , Service support , ADDENDUM: 05/18/18 0052 IMPRESSION: Large amount of free intraperitoneal air and moderate free fluid similar to previous. As noted on the prior study, this is more than is normally seen postoperatively and is concerning for bowel perforation or perhaps wound dehiscence. No extraluminal enteric contrast identified. However there is pneumatosis and wall thickening of the ascending colon with immediately adjacent foci of extraluminal air; suspicious for perforation here. Enteric contrast has not yet reached this loop of bowel. Slight interval worsening of bibasal atelectasis versus pneumonia. Several other chronic findings as above similar to prior. Individualized dose optimization techniques were used for this CT. at 0042 Reported and signed by: Jason Goins MD N.B. : The above information has been verbally conveyed by Jason Goins to Yoly Gallo RN, on 05/18/2018 00:45:57 (ET). Electronically Signed: Jason Goins, at 0:40 EST Tel , Service support , Chest X-Ray 05/18/18 04:38 IMPRESSION: Compressive atelectasis in the right and left lung lower lobes. Small bilateral pleural effusions. Electronically Signed: Constanza Archer, at 7:53 EST Tel , Service support , Medical Necessity - Tobacco Use Smoking Status: Current every day smoker Tobacco Use: Cigarettes Assessment/Plan All Active Problems (Last Reviewed 05/04/18 @ 08:39 by Prasanth Pradhan MD) Gross hematuria (Acute) Overweight (Acute) MASOOD (obstructive sleep apnea) (Acute) Colovesical fistula (Acute) Large bowel anastomotic leak (Acute) Sepsis associated hypotension (Acute) Perforated abdominal viscus (Acute) Perforated viscus (Acute) Acute kidney injury (Acute) RECOMMENDATIONS: 1. Continue heparin drip. 2. Continue broad-spectrum antimicrobial coverage, per infectious diseases recommendations. 3. Continue vasopressor support in an attempt to maintain a mean arterial pressure at or above 65 mmHg. 4. Recommend judicious use of fluids, given how edematous the patient currently is. He is significantly volume up for the admission. 5. Start TPN today. 6. Wean FiO2 as tolerated. 7. Electrolyte repletion as ordered. IMPRESSIONS: 1. Septic shock secondary to perforated viscus, now POD #1 s/p exploratory laparotomy and repair of perforated jejunum The patient is currently on broad-spectrum antimicrobials. Infectious diseases is following. He remains on dual vasopressor support in an attempt to maintain hemodynamic stability. This will be continued in an attempt to maintain a mean arterial pressure at or above 65 mmHg. I recommended judicious use of supplemental IV fluids, given the patient's underlying cardiomyopathy and current volume overloaded state. Cultures remain in process. Recommend starting TPN today, per nutrition services recommendations. 2. Acute respiratory failure The patient returns to the ICU following surgery on invasive mechanical ventilation. At this time, the patient's clinical state is far too tenuous to consider aggressive weaning from mechanical ventilatory support. Adjustments have been made to the patient's tidal volume and respiratory rate this morning. We will plan to continue the patient on assist control, with plans to wean FiO2 to maintain oxygen saturations at or above 90%. 3. Coronary artery disease/chronic systolic heart failure Continue current medical therapy. The patient's Lasix and beta-bravo regimen are currently on hold. 4. Paroxysmal atrial fibrillation/chronic anticoagulation status The patient's anticoagulation was fully reversed in preparation for surgery. Given his tenuous clinical status, recommend continuing heparin drip as ordered. 5. Hypokalemia Electrolyte repletion has been ordered. Recommend rechecking levels in the morning. 6. Acute kidney injury Likely prerenal in etiology and related to ischemic ATN in the setting of #1. Will continue current supportive measures as noted above. Nephrology is currently following. 7. History of obstructive sleep apnea The patient reports a history of noncompliance with the use of nocturnal Pap therapy. TIME: 40 minutes of critical care time, independent of procedures, was spent addressing the patient's septic shock, perforated viscus, acute respiratory failure, coronary artery disease, biventricular heart failure, paroxysmal atrial fibrillation, hypokalemia, acute kidney injury, review of all data and collaboration with the care team. ([id number]) Code Visit 9xxxx: 12075 Critical care first hour
--- NOTE | 2018-05-19 06:36 | PN_ITS ---
Subjective: The patient was seen and examined at the bedside this morning. Events from the last 24 hours have been reviewed. Although the patient remains afebrile, he continues to require 30 mcg of Levophed and vasopressin to maintain hemodynamic stability. The patient was given a total of 1 L of lactated Ringer's overnight. He is currently overall net +10.6 L for the admission. His weight is up significantly. He is currently sedated on fentanyl at 50 mcgs. Propofol was discontinued yesterday. The patient's urine output is decreasing. His creatin ine has risen. Nephrology is on board and following. The patient's white blood cell count continues to increase. His H&H remains stable. He remains on a heparin drip. Potassium is low this morning at 3.3. Objective: The patient's most recent lab work, culture data and imaging studies have all been personally reviewed. Blood and urine cultures are pending. A transe sophageal echocardiogram from August 2017 revealed evidence of a moderately severe global LV systolic dysfunction with an ejection fraction of 30%. There is also evidence of moderate global RV systolic dysfunction. There was moderate aortic valve stenosis. General: - - The patient is minimally sedated and responsive on assist control mode mechanical ventilation. No ventilator dyssynchrony noted. HEENT: Atraumatic, PERRLA, Normocephalic Oral: No Gingival or Mucosal Lesions/ Ulcerations, - - Endotracheal tube remains in place. NG tube currently in place. Neck: Supple, No Nodes, Trachea Midline, - - Triple-lumen catheter remains in place. Lungs: No wheeze, No rales, Diminished, Rhonchi Cardiovascular: Normal S1, Normal S2, Tachycardic, - - Sinus tachycardia noted on telemetry. Abdomen: Distended, - - Postsurgical sites remain intact. Retention sutures in place. Ostomy site intact. RICARDO drains in place. Extremities: No clubbing, No cyanosis, Edema Skin: - - No significant change from previous. Musculoskeletal: No Tenderness to Palpation of Joints or Extremities Lymphatic: No Cervical, Supraclavicular, or Inguinal Adenopathy Neurological: Neuro grossly intact, - - The patient is alert and minimally sedated. RASS of -1 noted. Vital Signs Temp Pulse Resp BP Pulse Ox 36.4 C L 115 H 15 85/55 L 91 05/19/18 04:00 05/19/18 06:00 05/19/18 06:00 05/19/18 06:00 05/19/18 05:00 Oxygen Flow Rate (L/min) 60 Oxygen Delivery Method Mechanical Ventilator Weight: 254 lb 6.615 oz Body Mass Index (BMI) 29.9 Intake and Output for Last 24 Hours 05/17/18 05/18/18 05/19/18 23:59 23:59 23:59 Intake Total 1295 / 1295 5822.2 / 5822.2 791.9 / 791.9 Output Total 785 / 785 3075 / 3075 410 / 410 Balance 510 / 510 2747.2 / 2747.2 381.9 / 381.9 Labs (Last 48 Hours) 05/17/18 05/17/18 05/17/18 05:15 08:13 09:50 WBC RBC Hgb Hct MCV MCH MCHC RDW RDW Differential Plt Count MPV Immature Gran % (Auto) Neut % (Auto) Lymph % (Auto) [place] % (Auto) Eos % (Auto) Baso % (Auto) Absolute Neuts (auto) Absolute Lymphs (auto) Total Counted Not Reportable Neutrophils % (Manual) Band Neutrophils % Lymphocytes % (Manual) Monocytes % (Manual) Differential Comment Diff Path Review Reviewed Toxic Granulation Platelet Estimate RBC Morphology Hypochromasia Anisocytosis Macrocytosis PT 67.3 H INR 7.8 H* APTT Specimen Type Sample Site pH Bicarbonate Actual POC Total CO2 Base Excess O2 Saturation O2 % ABG pCO2 ABG pO2 Rod Test Respiration Rate O2 Delivery Device Vent Mode Tidal Volume POC PEEP Blood Gas Notified Whom Blood Gas Notified Time Sodium Potassium Chloride Carbon Dioxide Anion Gap BUN Creatinine Estim Creat Clear Calc Est GFR (MDRD) Af Amer Est GFR (MDRD) Non-Af BUN/Creatinine Ratio Glucose Lactic Acid Calcium Phosphorus Magnesium Total Bilirubin AST ALT Alkaline Phosphatase Total Creatine Kinase Total Protein Albumin Globulin Albumin/Globulin Ratio Triglycerides Cortisol Random Vancomycin MRSA (PCR) Negative Blood Type Antibody Screen Crossmatch 05/17/18 05/17/18 05/17/18 10:05 12:50 13:00 WBC RBC Hgb Hct MCV MCH MCHC RDW RDW Differential Plt Count MPV Immature Gran % (Auto) Neut % (Auto) Lymph % (Auto) [place] % (Auto) Eos % (Auto) Baso % (Auto) Absolute Neuts (auto) Absolute Lymphs (auto) Total Counted Neutrophils % (Manual) Band Neutrophils % Lymphocytes % (Manual) Monocytes % (Manual) Differential Comment Diff Path Review Toxic Granulation Platelet Estimate RBC Morphology Hypochromasia Anisocytosis Macrocytosis PT INR APTT Specimen Type Sample Site pH Bicarbonate Actual POC Total CO2 Base Excess O2 Saturation O2 % ABG pCO2 ABG pO2 Rod Test Respiration Rate O2 Delivery Device Vent Mode Tidal Volume POC PEEP Blood Gas Notified Whom Blood Gas Notified Time Sodium Potassium Chloride Carbon Dioxide Anion Gap BUN Creatinine Estim Creat Clear Calc Est GFR (MDRD) Af Amer Est GFR (MDRD) Non-Af BUN/Creatinine Ratio Glucose Lactic Acid 1.4 Calcium Phosphorus Magnesium Total Bilirubin AST ALT Alkaline Phosphatase Total Creatine Kinase Total Protein Albumin Globulin Albumin/Globulin Ratio Triglycerides Cortisol 43.20 H 49.50 H Random Vancomycin MRSA (PCR) Blood Type Antibody Screen Crossmatch 05/17/18 05/17/18 05/17/18 14:00 17:00 17:00 WBC RBC Hgb Hct MCV MCH MCHC RDW RDW Differential Plt Count MPV Immature Gran % (Auto) Neut % (Auto) Lymph % (Auto) [place] % (Auto) Eos % (Auto) Baso % (Auto) Absolute Neuts (auto) Absolute Lymphs (auto) Total Counted Neutrophils % (Manual) Band Neutrophils % Lymphocytes % (Manual) Monocytes % (Manual) Differential Comment Diff Path Review Toxic Granulation Platelet Estimate RBC Morphology Hypochromasia Anisocytosis Macrocytosis PT INR APTT Specimen Type Sample Site pH Bicarbonate Actual POC Total CO2 Base Excess O2 Saturation O2 % ABG pCO2 ABG pO2 Rod Test Respiration Rate O2 Delivery Device Vent Mode Tidal Volume POC PEEP Blood Gas Notified Whom Blood Gas Notified Time Sodium Potassium Chloride Carbon Dioxide Anion Gap BUN Creatinine Estim Creat Clear Calc Est GFR (MDRD) Af Amer Est GFR (MDRD) Non-Af BUN/Creatinine Ratio Glucose Lactic Acid Calcium Phosphorus Magnesium Total Bilirubin AST ALT Alkaline Phosphatase Total Creatine Kinase Total Protein Albumin Globulin Albumin/Globulin Ratio Triglycerides Cortisol 60.60 H Random Vancomycin MRSA (PCR) Blood Type A POSITIVE Antibody Screen NEGATIVE Crossmatch See Detail 05/17/18 05/17/18 05/17/18 21:18 21:18 21:18 WBC 20.2 H RBC 2.39 L Hgb 8.7 L Hct 25.4 L MCV 106.3 H MCH 36.4 H MCHC 34.3 RDW 15.2 H RDW Differential 58.7 H Plt Count 421 MPV 11.0 Immature Gran % (Auto) 1.300 H Neut % (Auto) 90.4 H Lymph % (Auto) 2.3 L [place] % (Auto) 5.9 Eos % (Auto) 0.0 Baso % (Auto) 0.1 Absolute Neuts (auto) 18.2 H Absolute Lymphs (auto) 0.47 L Total Counted Not Reportable Neutrophils % (Manual) Band Neutrophils % Lymphocytes % (Manual) Monocytes % (Manual) Differential Comment SEE COMMENT Diff Path Review May foll Toxic Granulation RARE Platelet Estimate SLT INC RBC Morphology Hypochromasia 2+ Anisocytosis 2+ Macrocytosis 2+ PT 21.7 H INR 1.9 APTT Specimen Type Sample Site pH Bicarbonate Actual POC Total CO2 Base Excess O2 Saturation O2 % ABG pCO2 ABG pO2 Rod Test Respiration Rate O2 Delivery Device Vent Mode Tidal Volume POC PEEP Blood Gas Notified Whom Blood Gas Notified Time Sodium 134 L Potassium 3.2 L Chloride 93 L Carbon Dioxide 29.0 Anion Gap 12 BUN 47 H Creatinine 1.63 H Estim Creat Clear Calc 52.24 Est GFR (MDRD) Af Amer 56 L Est GFR (MDRD) Non-Af 46 L BUN/Creatinine Ratio 28.8 H Glucose 149 H Lactic Acid Calcium 7.5 L Phosphorus Magnesium Total Bilirubin 1.30 H AST 69 H ALT 35 Alkaline Phosphatase 90 Total Creatine Kinase Total Protein 5.9 L Albumin 2.2 L Globulin 3.7 Albumin/Globulin Ratio 0.6 L Triglycerides Cortisol Random Vancomycin MRSA (PCR) Blood Type Antibody Screen Crossmatch 05/17/18 05/17/18 05/18/18 21:18 22:02 04:50 WBC 16.3 H RBC 3.23 L Hgb 11.2 L Hct 33.5 L MCV 103.7 H MCH 34.7 H MCHC 33.4 RDW 18.1 H RDW Differential 68.9 H Plt Count 452 H MPV 11.4 Immature Gran % (Auto) 1.900 H Neut % (Auto) 85.3 H Lymph % (Auto) 3.9 L [place] % (Auto) 8.5 Eos % (Auto) 0.2 Baso % (Auto) 0.2 Absolute Neuts (auto) 13.9 H Absolute Lymphs (auto) 0.64 L Total Counted Not Reportable Neutrophils % (Manual) Band Neutrophils % Lymphocytes % (Manual) Monocytes % (Manual) Differential Comment Diff Path Review Toxic Granulation 2+ Platelet Estimate SLT INC RBC Morphology RARE Hypochromasia 1+ Anisocytosis 1+ Macrocytosis 1+ PT INR APTT Specimen Type Sample Site pH Bicarbonate Actual POC Total CO2 Base Excess O2 Saturation O2 % ABG pCO2 ABG pO2 Rod Test Respiration Rate O2 Delivery Device Vent Mode Tidal Volume POC PEEP Blood Gas Notified Whom Blood Gas Notified Time Sodium Potassium Chloride Carbon Dioxide Anion Gap BUN Creatinine Estim Creat Clear Calc Est GFR (MDRD) Af Amer Est GFR (MDRD) Non-Af BUN/Creatinine Ratio Glucose Lactic Acid 1.2 Calcium Phosphorus 5.1 H Magnesium 3.0 H Total Bilirubin AST ALT Alkaline Phosphatase Total Creatine Kinase Total Protein Albumin Globulin Albumin/Globulin Ratio Triglycerides Cortisol Random Vancomycin MRSA (PCR) Blood Type Antibody Screen Crossmatch 05/18/18 05/18/18 05/18/18 04:50 04:50 04:50 WBC RBC Hgb Hct MCV MCH MCHC RDW RDW Differential Plt Count MPV Immature Gran % (Auto) Neut % (Auto) Lymph % (Auto) [place] % (Auto) Eos % (Auto) Baso % (Auto) Absolute Neuts (auto) Absolute Lymphs (auto) Total Counted Neutrophils % (Manual) Band Neutrophils % Lymphocytes % (Manual) Monocytes % (Manual) Differential Comment Diff Path Review Toxic Granulation Platelet Estimate RBC Morphology Hypochromasia Anisocytosis Macrocytosis PT 18.6 H INR 1.6 APTT Specimen Type Sample Site pH Bicarbonate Actual POC Total CO2 Base Excess O2 Saturation O2 % ABG pCO2 ABG pO2 Rod Test Respiration Rate O2 Delivery Device Vent Mode Tidal Volume POC PEEP Blood Gas Notified Whom Blood Gas Notified Time Sodium 135 L Potassium 3.4 L Chloride 99 Carbon Dioxide 25.0 Anion Gap 11 BUN 44 H Creatinine 1.35 H Estim Creat Clear Calc 63.07 Est GFR (MDRD) Af Amer 69 Est GFR (MDRD) Non-Af 57 L BUN/Creatinine Ratio 32.6 H Glucose 123 H Lactic Acid 1.7 Calcium 6.9 L Phosphorus 5.1 H Magnesium 2.8 H Total Bilirubin 1.80 H AST 77 H ALT 31 Alkaline Phosphatase 88 Total Creatine Kinase Total Protein 4.9 L Albumin 1.7 L Globulin 3.2 Albumin/Globulin Ratio 0.5 L Triglycerides Cortisol Random Vancomycin MRSA (PCR) Blood Type Antibody Screen Crossmatch 05/18/18 05/18/18 05/18/18 04:50 04:50 04:52 WBC RBC Hgb Hct MCV MCH MCHC RDW RDW Differential Plt Count MPV Immature Gran % (Auto) Neut % (Auto) Lymph % (Auto) [place] % (Auto) Eos % (Auto) Baso % (Auto) Absolute Neuts (auto) Absolute Lymphs (auto) Total Counted Neutrophils % (Manual) Band Neutrophils % Lymphocytes % (Manual) Monocytes % (Manual) Differential Comment Diff Path Review Toxic Granulation Platelet Estimate RBC Morphology Hypochromasia Anisocytosis Macrocytosis PT INR APTT 40.4 H Specimen Type CLEOPATRA Sample Site R Radial pH 7.31 L Bicarbonate Actual 23.8 POC Total CO2 25 Base Excess -2 O2 Saturation 86 L O2 % 60 ABG pCO2 46.9 H ABG pO2 56 L Rod Test NA Respiration Rate 12 O2 Delivery Device Vent Vent Mode A-C Tidal Volume 600 POC PEEP 5 Blood Gas Notified Whom ICU MD Blood Gas Notified Time 449 Sodium Potassium Chloride Carbon Dioxide Anion Gap BUN Creatinine Estim Creat Clear Calc Est GFR (MDRD) Af Amer Est GFR (MDRD) Non-Af BUN/Creatinine Ratio Glucose Lactic Acid Calcium Phosphorus Magnesium Total Bilirubin AST ALT Alkaline Phosphatase Total Creatine Kinase 171 Total Protein Albumin Globulin Albumin/Globulin Ratio Triglycerides 80 Cortisol Random Vancomycin MRSA (PCR) Blood Type Antibody Screen Crossmatch 05/18/18 05/18/18 05/18/18 10:10 14:35 20:05 WBC 21.0 H RBC 3.59 L Hgb 12.3 L Hct 36.8 L MCV 102.5 H MCH 34.3 H MCHC 33.4 RDW 18.9 H RDW Differential 70.8 H Plt Count 454 H MPV 11.4 Immature Gran % (Auto) Neut % (Auto) Not Reportable Lymph % (Auto) [place] % (Auto) Eos % (Auto) Baso % (Auto) Absolute Neuts (auto) 19.3 H Absolute Lymphs (auto) 1.05 Total Counted 100 Neutrophils % (Manual) 88 H Band Neutrophils % 4 Lymphocytes % (Manual) 5 L Monocytes % (Manual) 3 Differential Comment Diff Path Review May foll Toxic Granulation Platelet Estimate SLT RBC Morphology N CHROM Hypochromasia Anisocytosis 1+ Macrocytosis 1+ PT INR APTT 131.5 H* Specimen Type Sample Site pH Bicarbonate Actual POC Total CO2 Base Excess O2 Saturation O2 % ABG pCO2 ABG pO2 Rod Test Respiration Rate O2 Delivery Device Vent Mode Tidal Volume POC PEEP Blood Gas Notified Whom Blood Gas Notified Time Sodium Potassium Chloride Carbon Dioxide Anion Gap BUN Creatinine Estim Creat Clear Calc Est GFR (MDRD) Af Amer Est GFR (MDRD) Non-Af BUN/Creatinine Ratio Glucose Lactic Acid Calcium Phosphorus Magnesium Total Bilirubin AST ALT Alkaline Phosphatase Total Creatine Kinase Total Protein Albumin Globulin Albumin/Globulin Ratio Triglycerides Cortisol Random Vancomycin 7.5 MRSA (PCR) Blood Type Antibody Screen Crossmatch 05/18/18 05/19/18 05/19/18 21:15 03:45 03:45 WBC 23.2 H RBC 3.34 L Hgb 11.6 L Hct 33.9 L MCV 101.5 H MCH 34.7 H MCHC 34.2 RDW 18.7 H RDW Differential 69.4 H Plt Count 446 MPV 11.7 Immature Gran % (Auto) Neut % (Auto) Not Reportable Lymph % (Auto) [place] % (Auto) Eos % (Auto) Baso % (Auto) Absolute Neuts (auto) Not Reportable Absolute Lymphs (auto) Total Counted Pending Neutrophils % (Manual) Band Neutrophils % Lymphocytes % (Manual) Monocytes % (Manual) Differential Comment Diff Path Review Toxic Granulation Platelet Estimate RBC Morphology Hypochromasia Anisocytosis Macrocytosis PT 17.0 H INR 1.4 APTT 87.5 H Specimen Type Sample Site pH Bicarbonate Actual POC Total CO2 Base Excess O2 Saturation O2 % ABG pCO2 ABG pO2 Rod Test Respiration Rate O2 Delivery Device Vent Mode Tidal Volume POC PEEP Blood Gas Notified Whom Blood Gas Notified Time Sodium Potassium Chloride Carbon Dioxide Anion Gap BUN Creatinine Estim Creat Clear Calc Est GFR (MDRD) Af Amer Est GFR (MDRD) Non-Af BUN/Creatinine Ratio Glucose Lactic Acid Calcium Phosphorus Magnesium Total Bilirubin AST ALT Alkaline Phosphatase Total Creatine Kinase Total Protein Albumin Globulin Albumin/Globulin Ratio Triglycerides Cortisol Random Vancomycin MRSA (PCR) Blood Type Antibody Screen Crossmatch 05/19/18 05/19/18 03:45 03:45 WBC RBC Hgb Hct MCV MCH MCHC RDW RDW Differential Plt Count MPV Immature Gran % (Auto) Neut % (Auto) Lymph % (Auto) [place] % (Auto) Eos % (Auto) Baso % (Auto) Absolute Neuts (auto) Absolute Lymphs (auto) Total Counted Neutrophils % (Manual) Band Neutrophils % Lymphocytes % (Manual) Monocytes % (Manual) Differential Comment Diff Path Review Toxic Granulation Platelet Estimate RBC Morphology Hypochromasia Anisocytosis Macrocytosis PT INR APTT 84.2 H Specimen Type Sample Site pH Bicarbonate Actual POC Total CO2 Base Excess O2 Saturation O2 % ABG pCO2 ABG pO2 Rod Test Respiration Rate O2 Delivery Device Vent Mode Tidal Volume POC PEEP Blood Gas Notified Whom Blood Gas Notified Time Sodium 134 L Potassium 3.3 L Chloride 100 Carbon Dioxide 23.0 Anion Gap 11 BUN 51 H Creatinine 2.00 H Estim Creat Clear Calc 42.57 Est GFR (MDRD) Af Amer 44 L Est GFR (MDRD) Non-Af 36 L BUN/Creatinine Ratio 25.5 H Glucose 150 H Lactic Acid Calcium 6.4 L* Phosphorus 4.7 Magnesium 2.8 H Total Bilirubin 1.80 H AST 76 H ALT 25 Alkaline Phosphatase 96 Total Creatine Kinase Total Protein 4.8 L Albumin 1.4 L Globulin 3.4 Albumin/Globulin Ratio 0.4 L Triglycerides Cortisol Random Vancomycin MRSA (PCR) Blood Type Antibody Screen Crossmatch Microbiology 05/12/18 17:05 Blood Culture (Wb) - Anticubital Left Blood Culture - Final No growth in 5 days. 05/12/18 17:10 Blood Culture (Wb) - Left Hand Blood Culture - Final No growth in 5 days. Clinical Impression(s) from Imaging Studies Abdomen/Pelvis CT 05/03/18 07:41 IMPRESSION: Large bladder mass as described causing a marked degree of bladder dilatation. Air is seen within the urinary bladder. This may be related to Maldonado catheter manipulation. If not, a colovesical fistula should be ruled out. Electronically Signed: Johnny Neil MD at 9:02 EST , Service support , Chest X-Ray 05/03/18 09:37 IMPRESSION: Mild cardiomegaly. Electronically Signed: Johnny Neil MD at 10:05 EST , Service support , Abdomen/Pelvis CT 05/04/18 07:00 IMPRESSION: Evaluation was performed to evaluate for a colovesical fistula. Please note that a study prior to injection of rectal contrast was not performed. This somewhat limits evaluation. There is hyperdense material in the bladder at time of prior study May 03, 2018 which most likely represented a hematoma. On today's examination again noted is gas as well as hyperdense material within the bladder. There is intimate association with a segment of the sigmoid colon with the urinary bladder. There is a small focus of gas within the bladder at this region. Findings would be concerning for a colovesical fistula. Correlate with urinalysis. Interval placement of a Maldonado catheter. The previously noted bladder hyperdense masslike lesion has significantly decreased in size. Likely representing a large hematoma. Recommend follow-up to ensure resolution. Diverticulosis is present. There is some thickening of the sigmoid colon with some stranding concerning for diverticulitis. Infrarenal abdominal aortic aneurysm. Decreasing right hydronephrosis. Evidence of prior granulomatous disease. Bilateral nephrolithiasis. Electronically Signed: Dawood Morrison at 7:57 EST Tel , Service support , Chest X-Ray 05/10/18 05:55 IMPRESSION: Atelectasis and/or infiltrates at the lung bases worse on the left side with blunting of left costophrenic angle. Electronically Signed: Johnny Neil MD at 9:43 EST , Service support , Chest X-Ray 05/12/18 16:45 IMPRESSION: 1. Decreased bibasilar atelectasis. No organizing infiltrates seen. 2. Gaseous distention of bowel in the upper abdomen, incompletely visualized. 3. Mild cardiomegaly. Electronically Signed: Tunde Cole MD at 17:03 EST , Service support , Abdomen/Pelvis CT 05/13/18 10:28 IMPRESSION: Small bilateral pleural effusions with bibasilar infiltrates and/or atelectasis. Small amount of perihepatic as well as perisplenic fluid as well as fluid in the pelvis. Small amount of fluid in the Colic gutters. Postoperative changes in the region of the umbilicus there Distention of the ascending colon and transverse colon and descending colon down to the region of the anastomosis at the rectosigmoid junction. A Maldonado catheter seen within the urinary bladder. Electronically Signed: Johnny Neil MD at 13:48 EST , Service support , Chest X-Ray 05/13/18 14:18 IMPRESSION: The tip of the right internal jugular venous catheter is in the proximal portion of the superior vena cava. There is no evidence of pneumothorax. Stable appearance of the lungs. Electronically Signed: Johnny Neil MD at 15:52 EST , Service support , Chest X-Ray 05/13/18 19:24 IMPRESSION: Interval placement endotracheal and enteric tubes as above. at 1955 Reported and signed by: Jason Goins MD Electronically Signed: Jason Goins, at 19:54 EST Tel , Service support , Chest X-Ray 05/16/18 09:45 IMPRESSION: Mild degree of increased markings at the lung bases. Free intraperitoneal air with the dilatation of the colon. Electronically Signed: Johnny Neil, at 14:24 EST , Service support , Abdomen CT 05/17/18 11:30 IMPRESSION: 1. Extensive free air and mild free fluid in the anterior abdomen, concerning for possible anastomotic leak. Open wound may be contributory. 2. Dilated small bowel with gradual transition in the pelvis, possibly due to adhesions. 3. Gas in decompressed bladder may be due to catheter placement or fistula. 4. Small pleural effusions. 5. A 3.2 cm infrarenal AAA. 6. Left femoral head collapse, likely secondary to avascular necrosis. Dr. Mayorga discussed the findings with Dr. Woo at 5:28 PM. N.B. : The above information has been verbally conveyed by Aleena Mayorga MD to Dr. Gerardo Woo MD, on 05/17/2018 17:29:57 (ET). Electronically Signed: Aleena Mayorga MD at 17:31 EST Tel , Service support , ADDENDUM: 05/17/18 1738 IMPRESSION: 1. Extensive free air and mild free fluid in the anterior abdomen, concerning for possible anastomotic leak. Open wound may be contributory. 2. Dilated small bowel with gradual transition in the pelvis, possibly due to adhesions. 3. Gas in decompressed bladder may be due to catheter placement or fistula. 4. Small pleural effusions. 5. A 3.2 cm infrarenal AAA. 6. Left femoral head collapse, likely secondary to avascular necrosis. Dr. Mayorga discussed the findings with Dr. Woo at 5:28 PM. N.B. : The above information has been verbally conveyed by Aleena Mayorga MD to Dr. Gerardo Woo MD, on 05/17/2018 17:29:57 (ET). Electronically Signed: Aleena Mayorga MD at 17:31 EST Tel , Service support , KUB X-Ray 05/17/18 22:56 IMPRESSION: NG tube terminates in the gastric antrum. Electronically Signed: Aleena Mayorga MD at 23:58 EST Tel , Service support , Abdomen CT 05/17/18 22:59 IMPRESSION: Large amount of free intraperitoneal air and moderate free fluid similar to previous. As noted on the prior study, this is more than is normally seen postoperatively and is concerning for bowel perforation or perhaps wound dehiscence. No extraluminal enteric contrast identified. However there is pneumatosis and wall thickening of the ascending colon with immediately adjacent foci of extraluminal air; suspicious for perforation here. Enteric contrast has not yet reached this loop of bowel. Slight interval worsening of bibasal atelectasis versus pneumonia. Several other chronic findings as above similar to prior. Individualized dose optimization techniques were used for this CT. at 0042 Reported and signed by: Jason Goins MD Electronically Signed: Jason Goins, at 0:40 EST Tel , Service support , ADDENDUM: 05/18/18 0052 IMPRESSION: Large amount of free intraperitoneal air and moderate free fluid similar to previous. As noted on the prior study, this is more than is normally seen postoperatively and is concerning for bowel perforation or perhaps wound dehiscence. No extraluminal enteric contrast identified. However there is pneumatosis and wall thickening of the ascending colon with immediately adjacent foci of extraluminal air; suspicious for perforation here. Enteric contrast has not yet reached this loop of bowel. Slight interval worsening of bibasal atelectasis versus pneumonia. Several other chronic findings as above similar to prior. Individualized dose optimization techniques were used for this CT. at 0042 Reported and signed by: Jason Goins MD N.B. : The above information has been verbally conveyed by Jason Goins to Yoly Gallo RN, on 05/18/2018 00:45:57 (ET). Electronically Signed: Jason Goins, at 0:40 EST Tel , Service support , Chest X-Ray 05/18/18 04:38 IMPRESSION: Compressive atelectasis in the right and left lung lower lobes. Small bilateral pleural effusions. Electronically Signed: Constanza Archer, at 7:53 EST Tel , Service support , Medical Necessity - Tobacco Use Smoking Status: Current every day smoker Tobacco Use: Cigarettes Assessment/Plan All Active Problems (Last Reviewed 05/04/18 @ 08:39 by Prasanth Pradhan MD) Gross hematuria (Acute) Overweight (Acute) MASOOD (obstructive sleep apnea) (Acute) Colovesical fistula (Acute) Large bowel anastomotic leak (Acute) Sepsis associated hypotension (Acute) Perforated abdominal viscus (Acute) Perforated viscus (Acute) Acute kidney injury (Acute) RECOMMENDATIONS: 1. Continue heparin drip. 2. Continue broad-spectrum antimicrobial coverage, per infectious diseases recommendations. 3. Continue vasopressor support in an attempt to maintain a mean arterial pressure at or above 65 mmHg. 4. Recommend judicious use of fluids, given how edematous the patient currently is. He is significantly volume up for the admission. 5. Start TPN today. 6. Wean FiO2 as tolerated. 7. Electrolyte repletion as ordered. IMPRESSIONS: 1. Septic shock secondary to perforated viscus, now POD #1 s/p exploratory laparotomy and repair of perforated jejunum The patient is currently on broad-spectrum antimicrobials. Infectious diseases is following. He remains on dual vasopressor support in an attempt to maintain hemodynamic stability. This will be continued in an attempt to maintain a mean arterial pressure at or above 65 mmHg. I recommended judicious use of supplemental IV fluids, given the patient's underlying cardiomyopathy and current volume overloaded state. Cultures remain in process. Recommend starting TPN today, per nutrition services recommendations. 2. Acute respiratory failure The patient returns to the ICU following surgery on invasive mechanical ventilation. At this time, the patient's clinical state is far too tenuous to consider aggressive weaning from mechanical ventilatory support. Adjustments have been made to the patient's tidal volume and respiratory rate this morning. We will plan to continue the patient on assist control, with plans to wean FiO2 to maintain oxygen saturations at or above 90%. 3. Coronary artery disease/chronic systolic heart failure Continue current medical therapy. The patient's Lasix and beta-bravo regimen are currently on hold. 4. Paroxysmal atrial fibrillation/chronic anticoagulation status The patient's anticoagulation was fully reversed in preparation for surgery. Given his tenuous clinical status, recommend continuing heparin drip as ordered. 5. Hypokalemia Electrolyte repletion has been ordered. Recommend rechecking levels in the morning. 6. Acute kidney injury Likely prerenal in etiology and related to ischemic ATN in the setting of #1. Will continue current supportive measures as noted above. Nephrology is currently following. 7. History of obstructive sleep apnea The patient reports a history of noncompliance with the use of nocturnal Pap therapy. TIME: 40 minutes of critical care time, independent of procedures, was spent addressing the patient's septic shock, perforated viscus, acute respiratory failure, coronary artery disease, biventricular heart failure, paroxysmal atrial fibrillation, hypokalemia, acute kidney injury, review of all data and collaboration with the care team. ([id number]) Code Visit 9xxxx: [id number] Critical care first hour
[2018-05-19 07:09] LABS: Lymphocyte 2 % (19-41); Metamyelocyte 4 % (0-1); Monocyte 6 % (0-10); Myelocyte 2 (0-0); Neutrophil-Band 36 % (0-5); Neutrophil-Segmented 50 % (47-70); Total Cells Counted 100 (MANUAL DIFF)
[2018-05-19 07:10] LABS: Absolute Lymphocyte Count 0.46 X10^3/ul (0.83-4.51); Absolute Neutrophil Count 21.3 X10^3/uL (2.0-7.7); Lymphocyte # 0.46 X10^3/ul (4.0)
[2018-05-19 07:11] LABS: Macrocytosis 1+
[2018-05-19 07:12] LABS: Anisocytosis 2+
[2018-05-19 07:13] LABS: Toxic Granulation 2+
--- NOTE | 2018-05-19 08:25 | PCM.PN.SRG ---
Patient Problems: Active and Suspected Problems (Last Reviewed 05/04/18 @ 08:39 by Prasanth Pradhan MD) Gross hematuria (Acute) Overweight (Acute) MASOOD (obstructive sleep apnea) (Acute) non-compliant with CPAP Peripheral arterial disease (Suspected) Colovesical fistula (Acute) Large bowel anastomotic leak (Acute) Sepsis associated hypotension (Acute) Perforated abdominal viscus (Acute) Perforated viscus (Acute) Acute kidney injury (Acute) Subjective: Patient is awake and on the ventilator able to understand and look at me when I am asking him questions. His pain is controlled his stoma. He remains on significant amount of pressors at this time. Objective: Stoma is pink dressings are dry right now. Serosanguineous fluid is coming out of the RICARDO at this time. - Physical Exam Vital Signs Temp Pulse Resp BP Pulse Ox 97.5 F L 115 H 18 85/55 L 91 05/19/18 04:00 05/19/18 07:54 05/19/18 07:54 05/19/18 06:00 05/19/18 07:54 Oxygen Flow Rate (L/min) 60 Oxygen Delivery Method Mechanical Ventilator Weight: 254 lb 6.615 oz Body Mass Index (BMI) 29.9 Intake and Output for Last 24 Hours 05/17/18 05/18/18 05/19/18 23:59 23:59 23:59 Intake Total 1295 / 1295 5822.2 / 5822.2 791.9 / 791.9 Output Total 785 / 785 3075 / 3075 410 / 410 Balance 510 / 510 2747.2 / 2747.2 381.9 / 381.9 Microbiology Past 72 Hours 05/12/18 17:05 Blood Culture - Final Blood Culture (Wb) - Anticubital Left No growth in 5 days. 05/12/18 17:10 Blood Culture - Final Blood Culture (Wb) - Left Hand No growth in 5 days. Laboratory Tests Past 24 Hrs 05/18/18 05/18/18 05/18/18 10:10 14:35 20:05 WBC 21.0 H RBC 3.59 L Hgb 12.3 L Hct 36.8 L MCV 102.5 H MCH 34.3 H MCHC 33.4 RDW 18.9 H RDW Differential 70.8 H Plt Count 454 H MPV 11.4 Neut % (Auto) Not Reportable Absolute Neuts (auto) 19.3 H Absolute Lymphs (auto) 1.05 Total Counted 100 Neutrophils % (Manual) 88 H Band Neutrophils % 4 Lymphocytes % (Manual) 5 L Monocytes % (Manual) 3 Metamyelocytes % Myelocytes % Diff Path Review May foll Toxic Granulation Platelet Estimate SLT RBC Morphology N CHROM Anisocytosis 1+ Macrocytosis 1+ PT INR APTT 131.5 H* Sodium Potassium Chloride Carbon Dioxide Anion Gap BUN Creatinine Estim Creat Clear Calc Est GFR (MDRD) Af Amer Est GFR (MDRD) Non-Af BUN/Creatinine Ratio Glucose Calcium Phosphorus Magnesium Total Bilirubin AST ALT Alkaline Phosphatase Total Protein Albumin Globulin Albumin/Globulin Ratio Random Vancomycin 7.5 05/18/18 05/19/18 05/19/18 21:15 03:45 03:45 WBC 23.2 H RBC 3.34 L Hgb 11.6 L Hct 33.9 L MCV 101.5 H MCH 34.7 H MCHC 34.2 RDW 18.7 H RDW Differential 69.4 H Plt Count 446 MPV 11.7 Neut % (Auto) Not Reportable Absolute Neuts (auto) 21.3 H Absolute Lymphs (auto) 0.46 L Total Counted 100 Neutrophils % (Manual) 50 Band Neutrophils % 36 H Lymphocytes % (Manual) 2 L Monocytes % (Manual) 6 Metamyelocytes % 4 H Myelocytes % 2 H Diff Path Review May foll Toxic Granulation 2+ Platelet Estimate RBC Morphology Anisocytosis 2+ Macrocytosis 1+ PT 17.0 H INR 1.4 APTT 87.5 H Sodium Potassium Chloride Carbon Dioxide Anion Gap BUN Creatinine Estim Creat Clear Calc Est GFR (MDRD) Af Amer Est GFR (MDRD) Non-Af BUN/Creatinine Ratio Glucose Calcium Phosphorus Magnesium Total Bilirubin AST ALT Alkaline Phosphatase Total Protein Albumin Globulin Albumin/Globulin Ratio Random Vancomycin 05/19/18 05/19/18 03:45 03:45 WBC RBC Hgb Hct MCV MCH MCHC RDW RDW Differential Plt Count MPV Neut % (Auto) Absolute Neuts (auto) Absolute Lymphs (auto) Total Counted Neutrophils % (Manual) Band Neutrophils % Lymphocytes % (Manual) Monocytes % (Manual) Metamyelocytes % Myelocytes % Diff Path Review Toxic Granulation Platelet Estimate RBC Morphology Anisocytosis Macrocytosis PT INR APTT 84.2 H Sodium 134 L Potassium 3.3 L Chloride 100 Carbon Dioxide 23.0 Anion Gap 11 BUN 51 H Creatinine 2.00 H Estim Creat Clear Calc 42.57 Est GFR (MDRD) Af Amer 44 L Est GFR (MDRD) Non-Af 36 L BUN/Creatinine Ratio 25.5 H Glucose 150 H Calcium 6.4 L* Phosphorus 4.7 Magnesium 2.8 H Total Bilirubin 1.80 H AST 76 H ALT 25 Alkaline Phosphatase 96 Total Protein 4.8 L Albumin 1.4 L Globulin 3.4 Albumin/Globulin Ratio 0.4 L Random Vancomycin Medical Necessity - Tobacco Use Smoking Status: Current every day smoker Tobacco Use: Cigarettes Assessment/Plan All Active Problems (Last Reviewed 05/04/18 @ 08:39 by Prasanth Pradhan MD) Gross hematuria (Acute) Overweight (Acute) MASOOD (obstructive sleep apnea) (Acute) Colovesical fistula (Acute) Large bowel anastomotic leak (Acute) Sepsis associated hypotension (Acute) Perforated abdominal viscus (Acute) Perforated viscus (Acute) Acute kidney injury (Acute) Postoperative day #2 TPN will be started today by the electric truck crane operator. Oxygen requirements are lessening but he is still not able to be extubated at this time. Still remains in guarded prognosis.
[2018-05-19] MEDS: Docusate Sodium 100 MG/10 ML UDC NG ×2 (09:30→21:09)
[2018-05-19] MEDS: Magnesium Oxide 400 MG Tablet NG (09:31)
[2018-05-19] MEDS: Chlorhexidine 15 ML PO ×2 (09:31→21:17)
[2018-05-19 12:49] LABS: Partial Thromboplast Time 95.3 Seconds (24.1-36.2)
[2018-05-19 13:27] LABS: Vancomycin, Trough Level 21.7 ug/mL (5.0-15.0)
--- NOTE | 2018-05-19 13:56 | PCM.PN.HOSP ---
Patient Problems: Active and Suspected Problems (Last Reviewed 05/04/18 @ 08:39 by Prasanth Pradhan MD) Gross hematuria (Acute) Overweight (Acute) MASOOD (obstructive sleep apnea) (Acute) non-compliant with CPAP Peripheral arterial disease (Suspected) Colovesical fistula (Acute) Large bowel anastomotic leak (Acute) Sepsis associated hypotension (Acute) Perforated abdominal viscus (Acute) Perforated viscus (Acute) Acute kidney injury (Acute) Subjective: Patient is awake and understands and responds to simple commands. No fever for last 48 hours. On vasopressor support. Intubated on 60% FiO2/500 tidal volume/5 PEEP. Vitals/I&O's: Vital Signs Temp Pulse Resp BP Pulse Ox 97.8 F 113 H 17 93/61 90 05/19/18 12:00 05/19/18 13:34 05/19/18 13:34 05/19/18 13:00 05/19/18 13:34 Oxygen Flow Rate (L/min) 60 Oxygen Delivery Method Mechanical Ventilator Weight: 254 lb 6.615 oz Body Mass Index (BMI) 29.9 Intake and Output for Last 24 Hours 05/17/18 05/18/18 05/19/18 23:59 23:59 23:59 Intake Total 1295 / 1295 5822.2 / 5822.2 841.9 / 841.9 Output Total 785 / 785 3075 / 3075 410 / 410 Balance 510 / 510 2747.2 / 2747.2 431.9 / 431.9 General: Alert, Cooperative, Lethargic HEENT: Atraumatic, PERRLA, EOMI, Normocephalic Oral: - - ET tube Lungs: Diminished, - - On vent support Cardiovascular: Regular rate, Normal S1, Normal S2, No murmurs, Irregular Rate Abdomen: Bowel Sounds Present, Hypoactive Bowel Sounds, - - Colostomy functioning with liquid bile and gas Extremities: Edema Skin: No rashes Musculoskeletal: Arthritic Changes Microbiology Past 72 Hours 05/17/18 07:27 Blood Culture (Wb) - Anticubital Right Blood Culture - Preliminary No growth in 48 hours. 05/17/18 08:25 Blood Culture (Wb) - Central Line Blood Culture - Preliminary No growth in 48 hours. 05/12/18 17:05 Blood Culture (Wb) - Anticubital Left Blood Culture - Final No growth in 5 days. 05/12/18 17:10 Blood Culture (Wb) - Left Hand Blood Culture - Final No growth in 5 days. Laboratory Results 05/18/18 14:35: APTT 131.5 H* 05/18/18 20:05: WBC 21.0 H, RBC 3.59 L, Hgb 12.3 L, Hct 36.8 L, MCV 102.5 H, MCH 34.3 H, MCHC 33.4, RDW 18.9 H, RDW Differential 70.8 H, Plt Count 454 H, MPV 11.4, Neut % (Auto) Not Reportable, Absolute Neuts (auto) 19.3 H, Absolute Lymphs (auto) 1.05, Total Counted 100, Neutrophils % (Manual) 88 H, Band Neutrophils % 4, Lymphocytes % (Manual) 5 L, Monocytes % (Manual) 3, Diff Path Review May lucy, Platelet Estimate SLT, RBC Morphology N CHROM, Anisocytosis 1+, Macrocytosis 1+ 05/18/18 21:15: APTT 87.5 H 05/19/18 03:45: PT 17.0 H, INR 1.4 05/19/18 03:45: WBC 23.2 H, RBC 3.34 L, Hgb 11.6 L, Hct 33.9 L, MCV 101.5 H, MCH 34.7 H, MCHC 34.2, RDW 18.7 H, RDW Differential 69.4 H, Plt Count 446, MPV 11.7, Neut % (Auto) Not Reportable, Absolute Neuts (auto) 21.3 H, Absolute Lymphs (auto) 0.46 L, Total Counted 100, Neutrophils % (Manual) 50, Band Neutrophils % 36 H, Lymphocytes % (Manual) 2 L, Monocytes % (Manual) 6, Metamyelocytes % 4 H, Myelocytes % 2 H, Diff Path Review May lucy, Toxic Granulation 2+, Anisocytosis 2+, Macrocytosis 1+ 05/19/18 03:45: Sodium 134 L, Potassium 3.3 L, Chloride 100, Carbon Dioxide 23.0, Anion Gap 11, BUN 51 H, Creatinine 2.00 H, Estim Creat Clear Calc 42.57, Est GFR (MDRD) Af Amer 44 L, Est GFR (MDRD) Non-Af 36 L, BUN/Creatinine Ratio 25.5 H, Glucose 150 H, Calcium 6.4 L*, Phosphorus 4.7, Magnesium 2.8 H, Total Bilirubin 1.80 H, AST 76 H, ALT 25, Alkaline Phosphatase 96, Total Protein 4.8 L, Albumin 1.4 L, Globulin 3.4, Albumin/Globulin Ratio 0.4 L 05/19/18 03:45: APTT 84.2 H 05/19/18 12:25: APTT 95.3 H* 05/19/18 12:45: Vancomycin Trough 21.7 H Current Medications Albuterol/Ipratropium (Duoneb) 3 ml INHALATION Q4H.RT PRN PRN Reason: WHEEZING Last Admin: 05/18/18 22:15 Dose: 3 ml Atorvastatin Calcium (Lipitor) 40 mg NG HS [facility] Last Admin: 05/18/18 21:17 Dose: 40 mg Bisacodyl (Dulcolax) 5 mg PO DAILY PRN PRN PRN Reason: Constipation Chlorhexidine Gluconate () 15 ml PO BID [facility] Last Admin: 05/19/18 09:31 Dose: 15 ml Chlorhexidine Gluconate () 1 each TOPICAL DAILY [facility] Last Admin: 05/19/18 05:03 Dose: 1 each Docusate Sodium (Colace Syrup) 100 mg NG BID [facility] Last Admin: 05/19/18 09:30 Dose: 100 mg Heparin Sodium (Porcine) (Heparin Na) 0 unit IV UD PRN; Protocol Meropenem 1 gm/ Sodium (Chloride) 120 mls @ 33 mls/hr IV Q8 [facility] Last Admin: 05/19/18 13:10 Dose: 33 mls/hr Vancomycin IV Pharmacy to Dose (1 ea/ Sodium Chloride) 500 mls @ 250 mls/hr IV PRN PRN; Protocol PRN Reason: Rx to Dose Vasopressin 40 units/ Sodium (Chloride) 52 mls @ 3.12 mls/hr IV .[id number] [facility] Last Admin: 05/19/18 10:19 Dose: 3.12 mls/hr Pantoprazole Sodium 40 mg/ (Sodium Chloride) 110 mls @ 330 mls/hr IV Q24 [facility] Last Admin: 05/19/18 09:30 Dose: 330 mls/hr Fentanyl () 100 mls @ 5 mls/hr IV .Q20H [facility]; Protocol Last Admin: 05/18/18 23:49 Dose: 5 mls/hr Propofol (Diprivan) 1,000 mg in 100 mls @ 6.618 mls/hr CONT INF .Q12H [facility]; Protocol Last Admin: 05/19/18 02:38 Dose: Not Given Heparin Sodium/Dextrose () 25,000 units in 250 mls @ 16 mls/hr IV .[id number] [facility]; Protocol Last Admin: 05/19/18 03:02 Dose: 16 mls/hr Norepinephrine Bitartrate 8 mg (/ Dextrose) 258 mls @ 9.68 mls/hr IV .[id number] [facility] Last Admin: 05/19/18 13:11 Dose: 9.68 mls/hr Vancomycin HCl (Vancomycin) 1,000 mg in 200 mls @ 200 mls/hr IV Q12H [facility] Last Admin: 05/19/18 00:50 Dose: 200 mls/hr Multivitamins 10 ml/ Chromium/Copper/Manganese/Seleni/Zn 1 ml/ Folic Acid 1 mg/ Amino Acids/Electrolytes 2,011.2 mls @ 84 mls/hr IV .[id number] [facility] Stop: 05/20/18 15:48 Fat Emulsion Intravenous (Intralipid 20%) 500 mls @ 42 mls/hr IV .[id number] [facility] Stop: 05/20/18 03:54 Magnesium Hydroxide (Milk Of Magnesia) 30 ml NG DAILY PRN PRN Reason: Constipation Magnesium Oxide (Mag-Ox 400) 400 mg NG DAILY [facility] Last Admin: 05/19/18 09:31 Dose: 400 mg Ondansetron HCl (Zofran) 4 mg IV Q6H PRN PRN PRN Reason: Nausea Last Admin: 05/16/18 04:56 Dose: 4 mg Sodium Chloride () 5 - 15 ml IV UD PRN PRN Reason: SALINE FLUSH Last Admin: 05/18/18 23:50 Dose: 10 ml Sodium Hypochlorite (Dakins Solution 0.25% (1/2 Strength)) 1 applic TOPICAL BID [facility]; Protocol Last Admin: 05/19/18 09:33 Dose: 1 applicatio Medical Necessity - Tobacco Use Smoking Status: Current every day smoker Tobacco Use: Cigarettes Assessment/Plan All Active Problems (Last Reviewed 05/04/18 @ 08:39 by Prasanth Pradhan MD) Gross hematuria (Acute) Overweight (Acute) MASOOD (obstructive sleep apnea) (Acute) Colovesical fistula (Acute) Large bowel anastomotic leak (Acute) Sepsis associated hypotension (Acute) Perforated abdominal viscus (Acute) Perforated viscus (Acute) Acute kidney injury (Acute) 62-year-old male with past medical history of hypertension, CAD, dilated cardiomyopathy, EF 30%, nicotine dependence who was admitted on 05/02/[address] abdomen and pelvis without contrast showed 8.7 x 8.3 single large mass in the base of the bladder with marked urinary bladder distention air-fluid level was seen in bladder along with colonic diverticulosis which raised the suspicion of colovesical fistula. Further workup for hematuria including cystoscopy revealed large bladder stone for which cystolitholaplaxy, extraction of blood clots and stone fragments was done on 05/03/2018. Patient had sigmoid colon resection and repair of colovesical fistula on 05/03/2018. Subsequently it was complicated with anastomotic leak and patient had exploratory laparotomy and creation of the end colostomy on 05/13/2018. Patient had exploratory laparotomy with jejunal repair on 05/17/2018. 1. Septic shock due to anastomotic leak and intraabdominal abscess. Overall patient clinical status deteriorated since yesterday and patient is being transferred back to ICU. Discussed with energy auditor, surgeon, wound nurse. On vasopressor support. Knowledge Engineer follow-up reviewed. Patient had mid jejunal perforation status post exploratory laparotomy with repair on 05/17/2018 ID consult. MRSA nasal screen ordered. Patient is on IV meropenem. Vancomycin was added on 05/17/2018. MRSA nasal screen came out negative Leukocytosis, coagulopathy, oliguric and acute kidney injury have improved. Leukocytosis improved. Coagulopathy corrected. Hypotension. On vasopressor support Leukocytosis 23,000. ID consult reviewed and appreciated CT abdomen with oral contrast is ordered. Acute kidney injury most probably intravascular fluid shift/ATN from intra-abdominal sepsis: Urine output has improved. Creatinine is improved. Monitor intake and output, electrolytes and kidney function: Nephrology consult reviewed. Patient has positive fluid balance of 430 mL last 24 hours and total about 10 L since admission. 2. LLE DVT: developed after surgery. Currently on IV heparin 3. Colovesical fistula s/p sigmoid colectomy complicated by anastomotic leak and intra-abdominal abscess and then jejunal perforation status post exploratory jejunal repair exploratory laparotomy for anastomotic leak with end-colostomy placement. general surgery on board 4. Acute hypoxic respiratory failure Vent support 5. Gross hematuria: resolved. Maldonado catheter in place. to follow up with urology on outpatient basis 6. Possible gout: foot pain is better. 7. CAD and ischemic cardiomyopathy has known EF of 30% has a history of left atrial appendage thrombus. cardiology on board Beta-blockers, Lasix and lisinopril on hold on account of hypotension Hold antihypertensive medications until blood pressure recovers 8. Hypertension: Carvedilol, lisinopril held on account of hypotension. 9. A. fib: Heart rate 110s 10. MASOOD: Noncompliant with CPAP. DVT prophylaxis: Coagulopathic. Bilateral SCDs. Overall, patient looks slightly better after surgery but is still in critical condition on vasopressor support and vent support. Prognosis is grim Code Visit Inpatient E&M: 18412 Init Hosp L3
--- NOTE | 2018-05-19 14:04 | PN_ITS ---
Patient Problems: Active and Suspected Problems (Last Reviewed 05/04/18 @ 08:39 by Prasanth Pradhan MD) Gross hematuria (Acute) Overweight (Acute) MASOOD (obstructive sleep apnea) (Acute) non-compliant with CPAP Peripheral arterial disease (Suspected) Colovesical fistula (Acute) Large bowel anastomotic leak (Acute) Sepsis associated hypotension (Acute) Perforated abdominal viscus (Acute) Perforated viscus (Acute) Acute kidney injury (Acute) Subjective: Patient is awake and understands and responds to simple commands. No fever for last 48 hours. On vasopressor support. Intubated on 60% FiO2/500 tidal volume/5 PEEP. Vitals/I&O's: Vital Signs Temp Pulse Resp BP Pulse Ox 97.8 F 113 H 17 93/61 90 05/19/18 12:00 05/19/18 13:34 05/19/18 13:34 05/19/18 13:00 05/19/18 13:34 Oxygen Flow Rate (L/min) 60 Oxygen Delivery Method Mechanical Ventilator Weight: 254 lb 6.615 oz Body Mass Index (BMI) 29.9 Intake and Output for Last 24 Hours 05/17/18 05/18/18 05/19/18 23:59 23:59 23:59 Intake Total 1295 / 1295 5822.2 / 5822.2 841.9 / 841.9 Output Total 785 / 785 3075 / 3075 410 / 410 Balance 510 / 510 2747.2 / 2747.2 431.9 / 431.9 General: Alert, Cooperative, Lethargic HEENT: Atraumatic, PERRLA, EOMI, Normocephalic Oral: - - ET tube Lungs: Diminished, - - On vent support Cardiovascular: Regular rate, Normal S1, Normal S2, No murmurs, Irregular Rate Abdomen: Bowel Sounds Present, Hypoactive Bowel Sounds, - - Colostomy functioning with liquid bile and gas Extremities: Edema Skin: No rashes Musculoskeletal: Arthritic Changes Microbiology Past 72 Hours 05/17/18 07:27 Blood Culture (Wb) - Anticubital Right Blood Culture - Preliminary No growth in 48 hours. 05/17/18 08:25 Blood Culture (Wb) - Central Line Blood Culture - Preliminary No growth in 48 hours. 05/12/18 17:05 Blood Culture (Wb) - Anticubital Left Blood Culture - Final No growth in 5 days. 05/12/18 17:10 Blood Culture (Wb) - Left Hand Blood Culture - Final No growth in 5 days. Laboratory Results 05/18/18 14:35: APTT 131.5 H* 05/18/18 20:05: WBC 21.0 H, RBC 3.59 L, Hgb 12.3 L, Hct 36.8 L, MCV 102.5 H, MCH 34.3 H, MCHC 33.4, RDW 18.9 H, RDW Differential 70.8 H, Plt Count 454 H, MPV 11.4, Neut % (Auto) Not Reportable, Absolute Neuts (auto) 19.3 H, Absolute Lymphs (auto) 1.05, Total Counted 100, Neutrophils % (Manual) 88 H, Band Neutrophils % 4, Lymphocytes % (Manual) 5 L, Monocytes % (Manual) 3, Diff Path Review May lucy, Platelet Estimate SLT, RBC Morphology N CHROM, Anisocytosis 1+, Macrocytosis 1+ 05/18/18 21:15: APTT 87.5 H 05/19/18 03:45: PT 17.0 H, INR 1.4 05/19/18 03:45: WBC 23.2 H, RBC 3.34 L, Hgb 11.6 L, Hct 33.9 L, MCV 101.5 H, MCH 34.7 H, MCHC 34.2, RDW 18.7 H, RDW Differential 69.4 H, Plt Count 446, MPV 11.7, Neut % (Auto) Not Reportable, Absolute Neuts (auto) 21.3 H, Absolute Lymphs (auto) 0.46 L, Total Counted 100, Neutrophils % (Manual) 50, Band Neutrophils % 36 H, Lymphocytes % (Manual) 2 L, Monocytes % (Manual) 6, Metamyelocytes % 4 H, Myelocytes % 2 H, Diff Path Review May lucy, Toxic Granulation 2+, Anisocytosis 2+, Macrocytosis 1+ 05/19/18 03:45: Sodium 134 L, Potassium 3.3 L, Chloride 100, Carbon Dioxide 23.0, Anion Gap 11, BUN 51 H, Creatinine 2.00 H, Estim Creat Clear Calc 42.57, Est GFR (MDRD) Af Amer 44 L, Est GFR (MDRD) Non-Af 36 L, BUN/Creatinine Ratio 25.5 H, Glucose 150 H, Calcium 6.4 L*, Phosphorus 4.7, Magnesium 2.8 H, Total Bilirubin 1.80 H, AST 76 H, ALT 25, Alkaline Phosphatase 96, Total Protein 4.8 L , Albumin 1.4 L, Globulin 3.4, Albumin/Globulin Ratio 0.4 L 05/19/18 03:45: APTT 84.2 H 05/19/18 12:25: APTT 95.3 H* 05/19/18 12:45: Vancomycin Trough 21.7 H Current Medications Albuterol/Ipratropium (Duoneb) 3 ml INHALATION Q4H.RT PRN PRN Reason: WHEEZING Last Admin: 05/18/18 22:15 Dose: 3 ml Atorvastatin Calcium (Lipitor) 40 mg NG HS [facility] Last Admin: 05/18/18 21:17 Dose: 40 mg Bisacodyl (Dulcolax) 5 mg PO DAILY PRN PRN PRN Reason: Constipation Chlorhexidine Gluconate () 15 ml PO BID [facility] Last Admin: 05/19/18 09:31 Dose: 15 ml Chlorhexidine Gluconate () 1 each TOPICAL DAILY [facility] Last Admin: 05/19/18 05:03 Dose: 1 each Docusate Sodium (Colace Syrup) 100 mg NG BID [facility] Last Admin: 05/19/18 09:30 Dose: 100 mg Heparin Sodium (Porcine) (Heparin Na) 0 unit IV UD PRN; Protocol Meropenem 1 gm/ Sodium (Chloride) 120 mls @ 33 mls/hr IV Q8 [facility] Last Admin: 05/19/18 13:10 Dose: 33 mls/hr Vancomycin IV Pharmacy to Dose (1 ea/ Sodium Chloride) 500 mls @ 250 mls/hr IV PRN PRN; Protocol PRN Reason: Rx to Dose Vasopressin 40 units/ Sodium (Chloride) 52 mls @ 3.12 mls/hr IV .[id number] [facility] Last Admin: 05/19/18 10:19 Dose: 3.12 mls/hr Pantoprazole Sodium 40 mg/ (Sodium Chloride) 110 mls @ 330 mls/hr IV Q24 [facility] Last Admin: 05/19/18 09:30 Dose: 330 mls/hr Fentanyl () 100 mls @ 5 mls/hr IV .Q20H [facility]; Protocol Last Admin: 05/18/18 23:49 Dose: 5 mls/hr Propofol (Diprivan) 1,000 mg in 100 mls @ 6.618 mls/hr CONT INF .Q12H [facility]; Protocol Last Admin: 05/19/18 02:38 Dose: Not Given Heparin Sodium/Dextrose () 25,000 units in 250 mls @ 16 mls/hr IV .[id number] [facility]; Protocol Last Admin: 05/19/18 03:02 Dose: 16 mls/hr Norepinephrine Bitartrate 8 mg (/ Dextrose) 258 mls @ 9.68 mls/hr IV .[id number] [facility] Last Admin: 05/19/18 13:11 Dose: 9.68 mls/hr Vancomycin HCl (Vancomycin) 1,000 mg in 200 mls @ 200 mls/hr IV Q12H [facility] Last Admin: 05/19/18 00:50 Dose: 200 mls/hr Multivitamins 10 ml/ Chromium/Copper/Manganese/Seleni/Zn 1 ml/ Folic Acid 1 mg/ Amino Acids/Electrolytes 2,011.2 mls @ 84 mls/hr IV .[id number] [facility] Stop: 05/20/18 15:48 Fat Emulsion Intravenous (Intralipid 20%) 500 mls @ 42 mls/hr IV .[id number] [facility] Stop: 05/20/18 03:54 Magnesium Hydroxide (Milk Of Magnesia) 30 ml NG DAILY PRN PRN Reason: Constipation Magnesium Oxide (Mag-Ox 400) 400 mg NG DAILY [facility] Last Admin: 05/19/18 09:31 Dose: 400 mg Ondansetron HCl (Zofran) 4 mg IV Q6H PRN PRN PRN Reason: Nausea Last Admin: 05/16/18 04:56 Dose: 4 mg Sodium Chloride () 5 - 15 ml IV UD PRN PRN Reason: SALINE FLUSH Last Admin: 05/18/18 23:50 Dose: 10 ml Sodium Hypochlorite (Dakins Solution 0.25% (1/2 Strength)) 1 applic TOPICAL BID [facility]; Protocol Last Admin: 05/19/18 09:33 Dose: 1 applicatio Medical Necessity - Tobacco Use Smoking Status: Current every day smoker Tobacco Use: Cigarettes Assessment/Plan All Active Problems (Last Reviewed 05/04/18 @ 08:39 by Prasanth Pradhan MD) Gross hematuria (Acute) Overweight (Acute) MASOOD (obstructive sleep apnea) (Acute) Colovesical fistula (Acute) Large bowel anastomotic leak (Acute) Sepsis associated hypotension (Acute) Perforated abdominal viscus (Acute) Perforated viscus (Acute) Acute kidney injury (Acute) 62-year-old male with past medical history of hypertension, CAD, dilated cardiomyopathy, EF 30%, nicotine dependence who was admitted on 05/02/[address] abdomen and pelvis without contrast showed 8.7 x 8.3 single large mass in the base of the bladder with marked urinary bladder distention air-fluid level was seen in bladder along with colonic diverticulosis which raised the suspicion of colovesical fistula. Further workup for hematuria including cystoscopy revealed large bladder stone for which cystolitholaplaxy, extraction of blood clots and stone fragments was done on 05/03/2018. Patient had sigmoid colon resection and repair of colovesical fistula on 05/03/2018. Subsequently it was complicated with anastomotic leak and patient had exploratory laparotomy and creation of the end colostomy on 05/13/2018. Patient had exploratory laparotomy with jejunal repair on 05/17/2018. 1. Septic shock due to anastomotic leak and intraabdominal abscess. Overall patient clinical status deteriorated since yesterday and patient is being transferred back to ICU. Discussed with skating rink ice maker, surgeon, wound nurse. On vasopressor support. Gambreler Helper follow-up reviewed. Patient had mid jejunal perforation status post exploratory laparotomy with repa ir on 05/17/2018 ID consult. MRSA nasal screen ordered. Patient is on IV meropenem. Vancomycin was added on 05/17/2018. MRSA nasal screen came out negative Leukocytosis, coagulopathy, oliguric and acute kidney injury have improved. Leukocytosis improved. Coagulopathy corrected. * Hypotension. On vasopressor support * Leukocytosis 23,000. * ID consult reviewed and appreciated * CT abdomen with oral contrast is ordered. Acute kidney injury most probably intravascular fluid shift/ATN from intra- abdominal sepsis: Urine output has improved. Creatinine is improved. Monitor intake and output, electrolytes and kidney function: Nephrology consult reviewed. Patient has positive fluid balance of 430 mL last 24 hours and total about 10 L since admission. 2. LLE DVT: developed after surgery. * Currently on IV heparin 3. Colovesical fistula s/p sigmoid colectomy complicated by anastomotic leak and intra-abdominal abscess and then jejunal perforation status post exploratory jejunal repair * exploratory laparotomy for anastomotic leak with end-colostomy placement. * general surgery on board 4. Acute hypoxic respiratory failure * Vent support 5. Gross hematuria: resolved. Maldonado catheter in place. to follow up with urology on outpatient basis 6. Possible gout: foot pain is better. 7. CAD and ischemic cardiomyopathy * has known EF of 30% * has a history of left atrial appendage thrombus. cardiology on board * Beta-blockers, Lasix and lisinopril on hold on account of hypotension * Hold antihypertensive medications until blood pressure recovers * 8. Hypertension: Carvedilol, lisinopril held on account of hypotension. 9. A. fib: Heart rate 110s 10. MASOOD: Noncompliant with CPAP. DVT prophylaxis: Coagulopathic. Bilateral SCDs. Overall, patient looks slightly better after surgery but is still in critical condition on vasopressor support and vent support. Prognosis is grim Code Visit Inpatient E&M: 72071 Init Hosp L3
--- NOTE | 2018-05-19 16:20 | PCM.RX.CS ---
Consult Pharmacy has been consulted to manage selected antiobiotic: Vancomycin Type of Consult: Follow-up Suspected Infection: Other Prior Doses of Antibiotics Received/Current Regimen: Previously on 1000mg IV q12h with the last dose received today at 00:50 Labs: Sodium 134 mmol/L (136-145) L 05/19/18 03:45 Potassium 3.3 mmol/L (3.5-5.1) L 05/19/18 03:45 Chloride 100 mmol/L (98-107) 05/19/18 03:45 Carbon Dioxide 23.0 mmol/L (21.0-32.0) 05/19/18 03:45 Anion Gap 11 (5-15) 05/19/18 03:45 BUN 51 mg/dL (7-18) H 05/19/18 03:45 Creatinine 2.00 mg/dL (0.70-1.30) H 05/19/18 03:45 Est GFR (MDRD) Af Amer 44 mL/min (>60) L 05/19/18 03:45 Est GFR (MDRD) Non-Af 36 mL/min (>60) L 05/19/18 03:45 BUN/Creatinine Ratio 25.5 RATIO (10-20) H 05/19/18 03:45 Glucose 150 mg/dL (74-106) H 05/19/18 03:45 Vancomycin Trough 21.7 ug/mL (5.0-15.0) H 05/19/18 12:45 Random Vancomycin 7.5 ug/mL (0.0-15.0) 05/18/18 10:10 Microbiology: Microbiology 05/17/18 07:27 Blood Culture (Wb) - Anticubital Right Blood Culture - Preliminary No growth in 48 hours. 05/17/18 08:25 Blood Culture (Wb) - Central Line Blood Culture - Preliminary No growth in 48 hours. 05/12/18 17:05 Blood Culture (Wb) - Anticubital Left Blood Culture - Final No growth in 5 days. 05/12/18 17:10 Blood Culture (Wb) - Left Hand Blood Culture - Final No growth in 5 days. Weight used for dosin.4 kg Estimated Creatinine Clearance: 43 ml/min Goal Trough: 10-15 mcg/mL Pharmacy Plan for Drug Dosing: The patient had a decrease in renal function from yesterday to today (Scr increased to 2.00 mg/dl this morning from 1.35 mg/dl yesterday). Due to this, a random vancomycin level was drawn today at 12:45 and it was 21.7 mg/l. The next dose at 13:00 was then held, and, per protocol, another random level will be taken tomorrow morning and dosing can be resumed when it is <20 mg/l. Consideration can then be given into dosing based on random levels once again until the patient's renal function has stabilized or improved. Pharmacy Service will continue to monitor and adjust dosing as required. Follow-Up Labs: Trough Vancomycin - random level Labs to be done on [date and time ordered]: 05/20/18 06:00
--- NOTE | 2018-05-19 16:40 | PCM.PN.REN ---
Patient Problems: Active and Suspected Problems (Last Reviewed 05/04/18 @ 08:39 by Prasanth Pradhan MD) Gross hematuria (Acute) Overweight (Acute) MASOOD (obstructive sleep apnea) (Acute) non-compliant with CPAP Peripheral arterial disease (Suspected) Colovesical fistula (Acute) Large bowel anastomotic leak (Acute) Sepsis associated hypotension (Acute) Perforated abdominal viscus (Acute) Perforated viscus (Acute) Acute kidney injury (Acute) Subjective: Patient remains in ICU intubated. Awake alert following command. Still on 2 blood pressure pressors. On Levophed on 25 MCG per minute and vasopressin Anuric. Kidney function worsening - Physical Exam General: Alert, No apparent distress HEENT: Atraumatic Oral: Moist Mucosa Neck: Supple, No JVD Lungs: - - On vent support. Lungs are clear to auscultation anteriorly Cardiovascular: Regular rate, Tachycardic Abdomen: Bowel Sounds Present, Soft, Non Tender Extremities: No clubbing, No cyanosis, Edema - +2 edema of lower extremities Skin: No rashes Musculoskeletal: No Tenderness to Palpation of Joints or Extremities Lymphatic: No Cervical, Supraclavicular, or Inguinal Adenopathy Psych/Mental Status: Appropriate Vital Signs Temp Pulse Resp BP Pulse Ox 97.8 F 118 H 19 H 93/61 90 05/19/18 12:00 05/19/18 16:00 05/19/18 15:45 05/19/18 13:00 05/19/18 15:45 Oxygen Flow Rate (L/min) 60 Oxygen Delivery Method Mechanical Ventilator Weight: 115.4 kg Body Mass Index (BMI) 29.9 Intake and Output for Last 24 Hours 05/17/18 05/18/18 05/19/18 23:59 23:59 23:59 Intake Total 1295 / 1295 5822.2 / 5822.2 2120.9 / 2120.9 Output Total 785 / 785 3075 / 3075 1060 / 1060 Balance 510 / 510 2747.2 / 2747.2 1060.9 / 1060.9 Microbiology Past 72 Hours 05/17/18 07:27 Blood Culture - Preliminary Blood Culture (Wb) - Anticubital Right No growth in 48 hours. 05/17/18 08:25 Blood Culture - Preliminary Blood Culture (Wb) - Central Line No growth in 48 hours. 05/12/18 17:05 Blood Culture - Final Blood Culture (Wb) - Anticubital Left No growth in 5 days. 05/12/18 17:10 Blood Culture - Final Blood Culture (Wb) - Left Hand No growth in 5 days. Laboratory Tests Past 24 Hrs 05/18/18 05/18/18 05/19/18 20:05 21:15 03:45 WBC 21.0 H RBC 3.59 L Hgb 12.3 L Hct 36.8 L MCV 102.5 H MCH 34.3 H MCHC 33.4 RDW 18.9 H RDW Differential 70.8 H Plt Count 454 H MPV 11.4 Neut % (Auto) Not Reportable Absolute Neuts (auto) 19.3 H Absolute Lymphs (auto) 1.05 Total Counted 100 Neutrophils % (Manual) 88 H Band Neutrophils % 4 Lymphocytes % (Manual) 5 L Monocytes % (Manual) 3 Metamyelocytes % Myelocytes % Diff Path Review May foll Toxic Granulation Platelet Estimate SLT RBC Morphology N CHROM Anisocytosis 1+ Macrocytosis 1+ PT 17.0 H INR 1.4 APTT 87.5 H Sodium Potassium Chloride Carbon Dioxide Anion Gap BUN Creatinine Estim Creat Clear Calc Est GFR (MDRD) Af Amer Est GFR (MDRD) Non-Af BUN/Creatinine Ratio Glucose Calcium Phosphorus Magnesium Total Bilirubin AST ALT Alkaline Phosphatase Total Protein Albumin Globulin Albumin/Globulin Ratio Vancomycin Trough 05/19/18 05/19/18 05/19/18 03:45 03:45 03:45 WBC 23.2 H RBC 3.34 L Hgb 11.6 L Hct 33.9 L MCV 101.5 H MCH 34.7 H MCHC 34.2 RDW 18.7 H RDW Differential 69.4 H Plt Count 446 MPV 11.7 Neut % (Auto) Not Reportable Absolute Neuts (auto) 21.3 H Absolute Lymphs (auto) 0.46 L Total Counted 100 Neutrophils % (Manual) 50 Band Neutrophils % 36 H Lymphocytes % (Manual) 2 L Monocytes % (Manual) 6 Metamyelocytes % 4 H Myelocytes % 2 H Diff Path Review May foll Toxic Granulation 2+ Platelet Estimate RBC Morphology Anisocytosis 2+ Macrocytosis 1+ PT INR APTT 84.2 H Sodium 134 L Potassium 3.3 L Chloride 100 Carbon Dioxide 23.0 Anion Gap 11 BUN 51 H Creatinine 2.00 H Estim Creat Clear Calc 42.57 Est GFR (MDRD) Af Amer 44 L Est GFR (MDRD) Non-Af 36 L BUN/Creatinine Ratio 25.5 H Glucose 150 H Calcium 6.4 L* Phosphorus 4.7 Magnesium 2.8 H Total Bilirubin 1.80 H AST 76 H ALT 25 Alkaline Phosphatase 96 Total Protein 4.8 L Albumin 1.4 L Globulin 3.4 Albumin/Globulin Ratio 0.4 L Vancomycin Trough 05/19/18 05/19/18 12:25 12:45 WBC RBC Hgb Hct MCV MCH MCHC RDW RDW Differential Plt Count MPV Neut % (Auto) Absolute Neuts (auto) Absolute Lymphs (auto) Total Counted Neutrophils % (Manual) Band Neutrophils % Lymphocytes % (Manual) Monocytes % (Manual) Metamyelocytes % Myelocytes % Diff Path Review Toxic Granulation Platelet Estimate RBC Morphology Anisocytosis Macrocytosis PT INR APTT 95.3 H* Sodium Potassium Chloride Carbon Dioxide Anion Gap BUN Creatinine Estim Creat Clear Calc Est GFR (MDRD) Af Amer Est GFR (MDRD) Non-Af BUN/Creatinine Ratio Glucose Calcium Phosphorus Magnesium Total Bilirubin AST ALT Alkaline Phosphatase Total Protein Albumin Globulin Albumin/Globulin Ratio Vancomycin Trough 21.7 H Medical Necessity - Tobacco Use Smoking Status: Current every day smoker Tobacco Use: Cigarettes Assessment/Plan All Active Problems (Last Reviewed 05/04/18 @ 08:39 by Prasanth Pradhan MD) Gross hematuria (Acute) Overweight (Acute) MASOOD (obstructive sleep apnea) (Acute) Colovesical fistula (Acute) Large bowel anastomotic leak (Acute) Sepsis associated hypotension (Acute) Perforated abdominal viscus (Acute) Perforated viscus (Acute) Acute kidney injury (Acute) 1-acute kidney injury most probably from ischemic acute tubular necrosis. Creatinine is rising. Creatinine is up to 2 mg/dL today. Patient is anuric since morning. No indication for hemodialysis today. Patient might need hemodialysis in the coming 24-48 hours if no recovery of kidney function. Please keep mean arterial pressure more than 65. Continue accurate input and output documentation .avoid nephrotoxic like IV contrast . Please dose medication for GFR less than 10 mL/min. Check renal panel in the morning 2-hypokalemia. Mild. Most probably from GI loss. replacement as per the ICU protocol. 3-colovesical fistula status post colectomy and colostomy. Management as per the surgery team. 4-septic shock. Hemodynamic stabilization as per ICU team. Antibiotics as per the ID. Please dose for GFR < 10 ml/min 5-respiratory failure. On vent support as per the ICU team. Renal team will continue to follow. Please call with any question or concern at my cell phone #[phone] Octaviano Sun MD
[2018-05-19] MEDS: Fat Emulsions 20% 500 ML IV (16:52)
[2018-05-19 18:33] LABS: Partial Thromboplast Time 80.9 Seconds (24.1-36.2)
[2018-05-19] MEDS: 0.9% NaCl Peripheral Flush Adult/Peds IV (18:35)
[2018-05-19] MEDS: fentaNYL drip 100 ML 5 MCG IV (18:36)
[2018-05-19] MEDS: Menthol/Lanolin/Calamine/Znox 113 GM Tube 1 APPLIC TOPICAL (21:08)
[2018-05-19] MEDS: Atorvastatin Calcium 40 MG Tablet NG (21:09)
[2018-05-20] VITALS (72 sets, daily range): BP systolic 75–135; BP diastolic 42–67; PULSE 84–112; RESP 9–25; TEMP 36.3–37.5; O2SAT 88–97
--- NOTE | 2018-05-20 00:20 | RAD_ITS ---
STUDY: X-RAY CHEST REASON FOR EXAM: Male, 62 years old. Respiratory distress TECHNIQUE: Single AP portable view of the chest. COMPARISON: 05/18/2018. FINDINGS: Central venous line is seen on the right side its tip is at the lower part of the superior vena cava. Endotracheal tube is seen its tip is 4 cm superior to the lorenzo. An NG tube is seen its tip is below the diaphragm is in good position. Compressive atelectasis in the right and left lung lower lobes. Small bilateral pleural effusions. Normal size heart. Normal mediastinum and alec. Normal visualized pulmonary arteries. Normal visualized aortic arch and descending thoracic aorta. Normal visualized thoracic spine. Normal visualized ribs, clavicles, and shoulders. There is no demonstrated abnormality of the visualized soft tissue structures of the upper abdomen. RAD/Chest 1 View (Portable) IMPRESSION: Compressive atelectasis in the right and left lung lower lobes. Small bilateral pleural effusions. Electronically Signed: Constanza Archer, at 0:52 EST Tel , Service support ,
[2018-05-20 00:51] LABS: Partial Thromboplast Time 69.4 Seconds (24.1-36.2)
[2018-05-20] MEDS: CHLORHEXIDINE GLUC 2% CLOTH 1 EACH TOWELETTE TOPICAL (03:09)
[2018-05-20] MEDS: HEPARIN/D5w 25,000 UNITS 25,000 UNITS/250 ML IV.SOLN. 16 UNITS IV ×2 (03:09→15:15)
--- NOTE | 2018-05-20 06:37 | PCM.PN.INT ---
Subjective: The patient was seen and examined at the bedside this morning. Events from the last 24 hours have been reviewed. The patient is currently afebrile and maintaining appropriate oxygen saturations on assist control with an FiO2 requirement of 60%. The patient's hemodynamics have improved over the last 24 hours. The patient's Levophed requirement is now down to 10 mcg. He remains on vasopressin. The patient is currently only receiving fentanyl at 50 mcg. He was started on TPN and lipid supplementation yesterday. He is alert, cooperative and resting comfortably. He does report a mild degree of abdominal pain. Unfortunately, the patient is essentially anuric. Nephrology is considering potential dialysis. The patient is now documented to be overall net +13.5 L for the admission. Objective: The patient's most recent lab work, culture data and imaging studies have all been personally reviewed. Blood and urine cultures are pending. A transesophageal echocardiogram from August 2017 revealed evidence of a moderately severe global LV systolic dysfunction with an ejection fraction of 30%. There is also evidence of moderate global RV systolic dysfunction. There was moderate aortic valve stenosis. General: - - Remains intubated and mechanically ventilated. The patient is alert and appropriately interactive. HEENT: Atraumatic, PERRLA, Normocephalic Oral: No Gingival or Mucosal Lesions/ Ulcerations, - - Endotracheal tube remains in place. Neck: Supple, No Nodes, Trachea Midline, - - Right-sided triple-lumen catheter currently in place. Lungs: No wheeze, No rales, Diminished, Rhonchi Cardiovascular: Regular Rhythm, Normal S1, Normal S2, Tachycardic Abdomen: Distended, - - Abdominal examination is largely unchanged from previous. Postsurgical changes noted with ostomy and RICARDO drains in place. Extremities: No clubbing, No cyanosis, Edema, - - Diffuse anasarca noted Skin: - - No significant change from previous. Musculoskeletal: No Tenderness to Palpation of Joints or Extremities Lymphatic: No Cervical, Supraclavicular, or Inguinal Adenopathy Neurological: - - No focal neurological deficits. Currently resting comfortably with a RASS of 0. Vital Signs Temp Pulse Resp BP Pulse Ox 36.8 C 106 H 18 95/53 L 91 05/20/18 06:00 05/20/18 06:00 05/20/18 06:00 05/20/18 06:00 05/20/18 06:00 Oxygen Flow Rate (L/min) 60 Oxygen Delivery Method Mechanical Ventilator Weight: 260 lb 5.855 oz Body Mass Index (BMI) 29.9 Intake and Output for Last 24 Hours 05/18/18 05/19/18 05/20/18 23:59 23:59 23:59 Intake Total 5822.2 / 5822.2 3246.0 / 3246.0 1725.8 / 1725.8 Output Total 3075 / 3075 1375 / 1375 260 / 260 Balance 2747.2 / 2747.2 1871.0 / 1871.0 1465.8 / 1465.8 Labs (Last 48 Hours) 05/17/18 05/18/18 05/18/18 17:00 04:50 10:10 WBC RBC Hgb Hct MCV MCH MCHC RDW RDW Differential Plt Count MPV Neut % (Auto) Absolute Neuts (auto) Absolute Lymphs (auto) Total Counted Neutrophils % (Manual) Band Neutrophils % Lymphocytes % (Manual) Monocytes % (Manual) Metamyelocytes % Myelocytes % Diff Path Review Toxic Granulation Platelet Estimate RBC Morphology Anisocytosis Macrocytosis PT INR APTT 40.4 H Sodium Potassium Chloride Carbon Dioxide Anion Gap BUN Creatinine Estim Creat Clear Calc Est GFR (MDRD) Af Amer Est GFR (MDRD) Non-Af BUN/Creatinine Ratio Glucose Calcium Phosphorus Magnesium Total Bilirubin AST ALT Alkaline Phosphatase Total Protein Albumin Globulin Albumin/Globulin Ratio Prealbumin Vancomycin Trough Random Vancomycin 7.5 Crossmatch See Detail 05/18/18 05/18/18 05/18/18 14:35 20:05 21:15 WBC 21.0 H RBC 3.59 L Hgb 12.3 L Hct 36.8 L MCV 102.5 H MCH 34.3 H MCHC 33.4 RDW 18.9 H RDW Differential 70.8 H Plt Count 454 H MPV 11.4 Neut % (Auto) Not Reportable Absolute Neuts (auto) 19.3 H Absolute Lymphs (auto) 1.05 Total Counted 100 Neutrophils % (Manual) 88 H Band Neutrophils % 4 Lymphocytes % (Manual) 5 L Monocytes % (Manual) 3 Metamyelocytes % Myelocytes % Diff Path Review May foll Toxic Granulation Platelet Estimate SLT RBC Morphology N CHROM Anisocytosis 1+ Macrocytosis 1+ PT INR APTT 131.5 H* 87.5 H Sodium Potassium Chloride Carbon Dioxide Anion Gap BUN Creatinine Estim Creat Clear Calc Est GFR (MDRD) Af Amer Est GFR (MDRD) Non-Af BUN/Creatinine Ratio Glucose Calcium Phosphorus Magnesium Total Bilirubin AST ALT Alkaline Phosphatase Total Protein Albumin Globulin Albumin/Globulin Ratio Prealbumin Vancomycin Trough Random Vancomycin Crossmatch 05/19/18 05/19/18 05/19/18 03:45 03:45 03:45 WBC 23.2 H RBC 3.34 L Hgb 11.6 L Hct 33.9 L MCV 101.5 H MCH 34.7 H MCHC 34.2 RDW 18.7 H RDW Differential 69.4 H Plt Count 446 MPV 11.7 Neut % (Auto) Not Reportable Absolute Neuts (auto) 21.3 H Absolute Lymphs (auto) 0.46 L Total Counted 100 Neutrophils % (Manual) 50 Band Neutrophils % 36 H Lymphocytes % (Manual) 2 L Monocytes % (Manual) 6 Metamyelocytes % 4 H Myelocytes % 2 H Diff Path Review May foll Toxic Granulation 2+ Platelet Estimate RBC Morphology Anisocytosis 2+ Macrocytosis 1+ PT 17.0 H INR 1.4 APTT Sodium 134 L Potassium 3.3 L Chloride 100 Carbon Dioxide 23.0 Anion Gap 11 BUN 51 H Creatinine 2.00 H Estim Creat Clear Calc 42.57 Est GFR (MDRD) Af Amer 44 L Est GFR (MDRD) Non-Af 36 L BUN/Creatinine Ratio 25.5 H Glucose 150 H Calcium 6.4 L* Phosphorus 4.7 Magnesium 2.8 H Total Bilirubin 1.80 H AST 76 H ALT 25 Alkaline Phosphatase 96 Total Protein 4.8 L Albumin 1.4 L Globulin 3.4 Albumin/Globulin Ratio 0.4 L Prealbumin Vancomycin Trough Random Vancomycin Crossmatch 05/19/18 05/19/18 05/19/18 03:45 12:25 12:45 WBC RBC Hgb Hct MCV MCH MCHC RDW RDW Differential Plt Count MPV Neut % (Auto) Absolute Neuts (auto) Absolute Lymphs (auto) Total Counted Neutrophils % (Manual) Band Neutrophils % Lymphocytes % (Manual) Monocytes % (Manual) Metamyelocytes % Myelocytes % Diff Path Review Toxic Granulation Platelet Estimate RBC Morphology Anisocytosis Macrocytosis PT INR APTT 84.2 H 95.3 H* Sodium Potassium Chloride Carbon Dioxide Anion Gap BUN Creatinine Estim Creat Clear Calc Est GFR (MDRD) Af Amer Est GFR (MDRD) Non-Af BUN/Creatinine Ratio Glucose Calcium Phosphorus Magnesium Total Bilirubin AST ALT Alkaline Phosphatase Total Protein Albumin Globulin Albumin/Globulin Ratio Prealbumin Vancomycin Trough 21.7 H Random Vancomycin Crossmatch 05/19/18 05/20/18 05/20/18 18:10 00:30 05:25 WBC RBC Hgb Hct MCV MCH MCHC RDW RDW Differential Plt Count MPV Neut % (Auto) Absolute Neuts (auto) Absolute Lymphs (auto) Total Counted Neutrophils % (Manual) Band Neutrophils % Lymphocytes % (Manual) Monocytes % (Manual) Metamyelocytes % Myelocytes % Diff Path Review Toxic Granulation Platelet Estimate RBC Morphology Anisocytosis Macrocytosis PT Pending INR Pending APTT 80.9 H 69.4 H Sodium Potassium Chloride Carbon Dioxide Anion Gap BUN Creatinine Estim Creat Clear Calc Est GFR (MDRD) Af Amer Est GFR (MDRD) Non-Af BUN/Creatinine Ratio Glucose Calcium Phosphorus Magnesium Total Bilirubin AST ALT Alkaline Phosphatase Total Protein Albumin Globulin Albumin/Globulin Ratio Prealbumin Vancomycin Trough Random Vancomycin Crossmatch 05/20/18 05/20/18 05/20/18 05:25 05:25 05:25 WBC Pending RBC Pending Hgb Pending Hct Pending MCV Pending MCH Pending MCHC Pending RDW Pending RDW Differential Pending Plt Count Pending MPV Neut % (Auto) Pending Absolute Neuts (auto) Pending Absolute Lymphs (auto) Total Counted Pending Neutrophils % (Manual) Band Neutrophils % Lymphocytes % (Manual) Monocytes % (Manual) Metamyelocytes % Myelocytes % Diff Path Review Toxic Granulation Platelet Estimate RBC Morphology Anisocytosis Macrocytosis PT INR APTT Sodium Pending Potassium Pending Chloride Pending Carbon Dioxide Pending Anion Gap Pending BUN Pending Creatinine Pending Estim Creat Clear Calc Est GFR (MDRD) Af Amer Pending Est GFR (MDRD) Non-Af Pending BUN/Creatinine Ratio Pending Glucose Pending Calcium Pending Phosphorus Magnesium Total Bilirubin Pending AST Pending ALT Pending Alkaline Phosphatase Pending Total Protein Pending Albumin Pending Globulin Albumin/Globulin Ratio Prealbumin Vancomycin Trough Random Vancomycin Pending Crossmatch 05/20/18 05:25 WBC RBC Hgb Hct MCV MCH MCHC RDW RDW Differential Plt Count MPV Neut % (Auto) Absolute Neuts (auto) Absolute Lymphs (auto) Total Counted Neutrophils % (Manual) Band Neutrophils % Lymphocytes % (Manual) Monocytes % (Manual) Metamyelocytes % Myelocytes % Diff Path Review Toxic Granulation Platelet Estimate RBC Morphology Anisocytosis Macrocytosis PT INR APTT Sodium Potassium Chloride Carbon Dioxide Anion Gap BUN Creatinine Estim Creat Clear Calc Est GFR (MDRD) Af Amer Est GFR (MDRD) Non-Af BUN/Creatinine Ratio Glucose Calcium Phosphorus Pending Magnesium Pending Total Bilirubin AST ALT Alkaline Phosphatase Total Protein Albumin Globulin Albumin/Globulin Ratio Prealbumin Pending Vancomycin Trough Random Vancomycin Crossmatch Microbiology 05/17/18 07:27 Blood Culture (Wb) - Anticubital Right Blood Culture - Preliminary No growth in 48 hours. 05/17/18 08:25 Blood Culture (Wb) - Central Line Blood Culture - Preliminary No growth in 48 hours. 05/12/18 17:05 Blood Culture (Wb) - Anticubital Left Blood Culture - Final No growth in 5 days. 05/12/18 17:10 Blood Culture (Wb) - Left Hand Blood Culture - Final No growth in 5 days. Clinical Impression(s) from Imaging Studies Abdomen/Pelvis CT 05/03/18 07:41 IMPRESSION: Large bladder mass as described causing a marked degree of bladder dilatation. Air is seen within the urinary bladder. This may be related to Maldonado catheter manipulation. If not, a colovesical fistula should be ruled out. Electronically Signed: Johnny Neil MD at 9:02 EST , Service support , Chest X-Ray 05/03/18 09:37 IMPRESSION: Mild cardiomegaly. Electronically Signed: Johnny Neil MD at 10:05 EST , Service support , Abdomen/Pelvis CT 05/04/18 07:00 IMPRESSION: Evaluation was performed to evaluate for a colovesical fistula. Please note that a study prior to injection of rectal contrast was not performed. This somewhat limits evaluation. There is hyperdense material in the bladder at time of prior study May 03, 2018 which most likely represented a hematoma. On today's examination again noted is gas as well as hyperdense material within the bladder. There is intimate association with a segment of the sigmoid colon with the urinary bladder. There is a small focus of gas within the bladder at this region. Findings would be concerning for a colovesical fistula. Correlate with urinalysis. Interval placement of a Maldonado catheter. The previously noted bladder hyperdense masslike lesion has significantly decreased in size. Likely representing a large hematoma. Recommend follow-up to ensure resolution. Diverticulosis is present. There is some thickening of the sigmoid colon with some stranding concerning for diverticulitis. Infrarenal abdominal aortic aneurysm. Decreasing right hydronephrosis. Evidence of prior granulomatous disease. Bilateral nephrolithiasis. Electronically Signed: Dawood Morrison at 7:57 EST Tel , Service support , Chest X-Ray 05/10/18 05:55 IMPRESSION: Atelectasis and/or infiltrates at the lung bases worse on the left side with blunting of left costophrenic angle. Electronically Signed: Johnny Neil MD at 9:43 EST , Service support , Chest X-Ray 05/12/18 16:45 IMPRESSION: 1. Decreased bibasilar atelectasis. No organizing infiltrates seen. 2. Gaseous distention of bowel in the upper abdomen, incompletely visualized. 3. Mild cardiomegaly. Electronically Signed: Tunde Cole MD at 17:03 EST , Service support , Abdomen/Pelvis CT 05/13/18 10:28 IMPRESSION: Small bilateral pleural effusions with bibasilar infiltrates and/or atelectasis. Small amount of perihepatic as well as perisplenic fluid as well as fluid in the pelvis. Small amount of fluid in the Colic gutters. Postoperative changes in the region of the umbilicus there Distention of the ascending colon and transverse colon and descending colon down to the region of the anastomosis at the rectosigmoid junction. A Maldonado catheter seen within the urinary bladder. Electronically Signed: Johnny Neil MD at 13:48 EST , Service support , Chest X-Ray 05/13/18 14:18 IMPRESSION: The tip of the right internal jugular venous catheter is in the proximal portion of the superior vena cava. There is no evidence of pneumothorax. Stable appearance of the lungs. Electronically Signed: Johnny Neil MD at 15:52 EST , Service support , Chest X-Ray 05/13/18 19:24 IMPRESSION: Interval placement endotracheal and enteric tubes as above. at 1955 Reported and signed by: Jason Goins MD Electronically Signed: Jason Goins, at 19:54 EST Tel , Service support , Chest X-Ray 05/16/18 09:45 IMPRESSION: Mild degree of increased markings at the lung bases. Free intraperitoneal air with the dilatation of the colon. Electronically Signed: Johnny Neil, at 14:24 EST , Service support , Abdomen CT 05/17/18 11:30 IMPRESSION: 1. Extensive free air and mild free fluid in the anterior abdomen, concerning for possible anastomotic leak. Open wound may be contributory. 2. Dilated small bowel with gradual transition in the pelvis, possibly due to adhesions. 3. Gas in decompressed bladder may be due to catheter placement or fistula. 4. Small pleural effusions. 5. A 3.2 cm infrarenal AAA. 6. Left femoral head collapse, likely secondary to avascular necrosis. Dr. Mayorga discussed the findings with Dr. Woo at 5:28 PM. N.B. : The above information has been verbally conveyed by Aleena Mayorga MD to Dr. Gerardo Woo MD, on 05/17/2018 17:29:57 (ET). Electronically Signed: Aleena Mayorga MD at 17:31 EST Tel , Service support , ADDENDUM: 05/17/18 1738 IMPRESSION: 1. Extensive free air and mild free fluid in the anterior abdomen, concerning for possible anastomotic leak. Open wound may be contributory. 2. Dilated small bowel with gradual transition in the pelvis, possibly due to adhesions. 3. Gas in decompressed bladder may be due to catheter placement or fistula. 4. Small pleural effusions. 5. A 3.2 cm infrarenal AAA. 6. Left femoral head collapse, likely secondary to avascular necrosis. Dr. Mayorga discussed the findings with Dr. Woo at 5:28 PM. N.B. : The above information has been verbally conveyed by Aleena Mayorga MD to Dr. Gerardo Woo MD, on 05/17/2018 17:29:57 (ET). Electronically Signed: Aleena Mayorga MD at 17:31 EST Tel , Service support , KUB X-Ray 05/17/18 22:56 IMPRESSION: NG tube terminates in the gastric antrum. Electronically Signed: Aleena Mayorga MD at 23:58 EST Tel , Service support , Abdomen CT 05/17/18 22:59 IMPRESSION: Large amount of free intraperitoneal air and moderate free fluid similar to previous. As noted on the prior study, this is more than is normally seen postoperatively and is concerning for bowel perforation or perhaps wound dehiscence. No extraluminal enteric contrast identified. However there is pneumatosis and wall thickening of the ascending colon with immediately adjacent foci of extraluminal air; suspicious for perforation here. Enteric contrast has not yet reached this loop of bowel. Slight interval worsening of bibasal atelectasis versus pneumonia. Several other chronic findings as above similar to prior. Individualized dose optimization techniques were used for this CT. at 0042 Reported and signed by: Jason Goins MD Electronically Signed: Jason Goins, at 0:40 EST Tel , Service support , ADDENDUM: 05/18/18 0052 IMPRESSION: Large amount of free intraperitoneal air and moderate free fluid similar to previous. As noted on the prior study, this is more than is normally seen postoperatively and is concerning for bowel perforation or perhaps wound dehiscence. No extraluminal enteric contrast identified. However there is pneumatosis and wall thickening of the ascending colon with immediately adjacent foci of extraluminal air; suspicious for perforation here. Enteric contrast has not yet reached this loop of bowel. Slight interval worsening of bibasal atelectasis versus pneumonia. Several other chronic findings as above similar to prior. Individualized dose optimization techniques were used for this CT. at 0042 Reported and signed by: Jason Goins MD N.B. : The above information has been verbally conveyed by Jason Goins to Yoly Gallo RN, on 05/18/2018 00:45:57 (ET). Electronically Signed: Jason Goins, at 0:40 EST Tel , Service support , Chest X-Ray 05/18/18 04:38 IMPRESSION: Compressive atelectasis in the right and left lung lower lobes. Small bilateral pleural effusions. Electronically Signed: Constanza Archer, at 7:53 EST Tel , Service support , Chest X-Ray 05/20/18 00:20 IMPRESSION: Compressive atelectasis in the right and left lung lower lobes. Small bilateral pleural effusions. Electronically Signed: Constanza Archer, at 0:52 EST Tel , Service support , Medical Necessity - Tobacco Use Smoking Status: Current every day smoker Tobacco Use: Cigarettes Assessment/Plan All Active Problems (Last Reviewed 05/04/18 @ 08:39 by Prasanth Pradhan MD) Gross hematuria (Acute) Overweight (Acute) MASOOD (obstructive sleep apnea) (Acute) Colovesical fistula (Acute) Large bowel anastomotic leak (Acute) Sepsis associated hypotension (Acute) Perforated abdominal viscus (Acute) Perforated viscus (Acute) Acute kidney injury (Acute) RECOMMENDATIONS: 1. Continue broad-spectrum antibiotics, per infectious diseases recommendations. 2. Continue vasopressor support as ordered. Wean as tolerated to maintain a mean arterial pressure at or above 65 mmHg. 3. Aggressive electrolyte repletion. 4. Continue TPN. Total volume will be decreased to 1 L daily, given the patient's volume overloaded state. 5. Continue heparin drip. 6. Continue appropriate ICU prophylaxis 7. Continue to wean FiO2 as tolerated to maintain an oxygen saturation at or above 90%. 8. Nephrology following with plans to initiate hemodialysis. 9. We will place left-sided triple-lumen catheter and guidewire exchange out the right to a temporary HD catheter. 10. We will discuss with ID about the possibility of adding antifungal coverage. IMPRESSIONS: 1. Septic shock secondary to perforated viscus, now POD #2 s/p exploratory laparotomy and repair of perforated jejunum The patient is currently on broad-spectrum antimicrobials. Infectious diseases is following. He remains on dual vasopressor support in an attempt to maintain hemodynamic stability. This will be continued in an attempt to maintain a mean arterial pressure at or above 65 mmHg. While the patient's vasopressor requirement is decreasing, his white blood cell count did increase this morning. Cultures have been unrevealing to date. I recommended judicious use of supplemental IV fluids, given the patient's underlying cardiomyopathy and current volume overloaded state. TPN will be continued for nutritional support. 2. Acute respiratory failure The patient returns to the ICU following surgery on invasive mechanical ventilation. At this time, the patient's clinical state is far too tenuous to consider aggressive weaning from mechanical ventilatory support. Unfortunately, the patient will likely need some form of volume optimization in order to wean his FiO2. Nevertheless, his hemodynamics are far too tenuous to even attempt volume removal at this time. We will plan to continue to wean FiO2 as tolerated. 3. Coronary artery disease/chronic systolic heart failure Continue current medical therapy. Continue to hold Lasix and beta-bravo. 4. Paroxysmal atrial fibrillation/chronic anticoagulation status The patient's anticoagulation was fully reversed in preparation for surgery. Given his tenuous clinical status, recommend continuing heparin drip as ordered. 5. Hypokalemia Electrolyte repletion has been ordered. Recommend rechecking levels in the morning. 6. Acute kidney injury Likely prerenal in etiology and related to ischemic ATN in the setting of #1. Will continue current supportive measures as noted above. Nephrology is currently following. Anticipate need for hemodialysis support in the very near future. 7. History of obstructive sleep apnea The patient reports a history of noncompliance with the use of nocturnal Pap therapy. TIME: 40 minutes of critical care time, independent of procedures, was spent addressing the patient's septic shock, perforated viscus, acute respiratory failure, coronary artery disease, biventricular heart failure, paroxysmal atrial fibrillation, hypokalemia, acute kidney injury, review of all data and collaboration with the care team. ([id number]) Code Visit [id number]: [id number] Critical care first hour
--- NOTE | 2018-05-20 06:40 | PN_ITS ---
Subjective: The patient was seen and examined at the bedside this morning. Events from the last 24 hours have been reviewed. The patient is currently afebrile and maintaining appropriate oxygen saturations on assist control with an FiO2 requirement of 60%. The patient's hemodynamics have improved over the last 24 hours. The patient's Levophed requirement is now down to 10 mcg. He remains on vasopressin. The patient is currently only receiving fentanyl at 50 mcg. He was started on TPN and lipid supplementation yesterday. He is alert, cooperative and resting comfortably. He does report a mild degree of abdominal pain. Unfortunately, the patient is essentially anuric. Nephrology is considering potential dialysis. The patient is now documented to be overall net +13.5 L for the admission. Objective: The patient's most recent lab work, culture data and imaging studies have all been personally reviewed. Blood and urine cultures are pending. A transesophageal echocardiogram from August 2017 revealed evidence of a moderately severe global LV systolic dysfunction with an ejection fraction of 30%. There is also evidence of moderate global RV systolic dysfunction. There was moderate aortic valve stenosis. General: - - Remains intubated and mechanically ventilated. The patient is alert and appropriately interactive. HEENT: Atraumatic, PERRLA, Normocephalic Oral: No Gingival or Mucosal Lesions/ Ulcerations, - - Endotracheal tube remains in place. Neck: Supple, No Nodes, Trachea Midline, - - Right-sided triple-lumen catheter currently in place. Lungs: No wheeze, No rales, Diminished, Rhonchi Cardiovascular: Regular Rhythm, Normal S1, Normal S2, Tachycardic Abdomen: Distended, - - Abdominal examination is largely unchanged from p revious. Postsurgical changes noted with ostomy and RICARDO drains in place. Extremities: No clubbing, No cyanosis, Edema, - - Diffuse anasarca noted Skin: - - No significant change from previous. Musculoskeletal: No Tenderness to Palpation of Joints or Extremities Lymphatic: No Cervical, Supraclavicular, or Inguinal Adenopathy Neurological: - - No focal neurological deficits. Currently resting comfortably with a RASS of 0. Vital Signs Temp Pulse Resp BP Pulse Ox 36.8 C 106 H 18 95/53 L 91 05/20/18 06:00 05/20/18 06:00 05/20/18 06:00 05/20/18 06:00 05/20/18 06:00 Oxygen Flow Rate (L/min) 60 Oxygen Delivery Method Mechanical Ventilator Weight: 260 lb 5.855 oz Body Mass Index (BMI) 29.9 Intake and Output for Last 24 Hours 05/18/18 05/19/18 05/20/18 23:59 23:59 23:59 Intake Total 5822.2 / 5822.2 3246.0 / 3246.0 1725.8 / 1725.8 Output Total 3075 / 3075 1375 / 1375 260 / 260 Balance 2747.2 / 2747.2 1871.0 / 1871.0 1465.8 / 1465.8 Labs (Last 48 Hours) 05/17/18 05/18/18 05/18/18 17:00 04:50 10:10 WBC RBC Hgb Hct MCV MCH MCHC RDW RDW Differential Plt Count MPV Neut % (Auto) Absolute Neuts (auto) Absolute Lymphs (auto) Total Counted Neutrophils % (Manual) Band Neutrophils % Lymphocytes % (Manual) Monocytes % (Manual) Metamyelocytes % Myelocytes % Diff Path Review Toxic Granulation Platelet Estimate RBC Morphology Anisocytosis Macrocytosis PT INR APTT 40.4 H Sodium Potassium Chloride Carbon Dioxide Anion Gap BUN Creatinine Estim Creat Clear Calc Est GFR (MDRD) Af Amer Est GFR (MDRD) Non-Af BUN/Creatinine Ratio Glucose Calcium Phosphorus Magnesium Total Bilirubin AST ALT Alkaline Phosphatase Total Protein Albumin Globulin Albumin/Globulin Ratio Prealbumin Vancomycin Trough Random Vancomycin 7.5 Crossmatch See Detail 05/18/18 05/18/18 05/18/18 14:35 20:05 21:15 WBC 21.0 H RBC 3.59 L Hgb 12.3 L Hct 36.8 L MCV 102.5 H MCH 34.3 H MCHC 33.4 RDW 18.9 H RDW Differential 70.8 H Plt Count 454 H MPV 11.4 Neut % (Auto) Not Reportable Absolute Neuts (auto) 19.3 H Absolute Lymphs (auto) 1.05 Total Counted 100 Neutrophils % (Manual) 88 H Band Neutrophils % 4 Lymphocytes % (Manual) 5 L Monocytes % (Manual) 3 Metamyelocytes % Myelocytes % Diff Path Review May foll Toxic Granulation Platelet Estimate SLT RBC Morphology N CHROM Anisocytosis 1+ Macrocytosis 1+ PT INR APTT 131.5 H* 87.5 H Sodium Potassium Chloride Carbon Dioxide Anion Gap BUN Creatinine Estim Creat Clear Calc Est GFR (MDRD) Af Amer Est GFR (MDRD) Non-Af BUN/Creatinine Ratio Glucose Calcium Phosphorus Magnesium Total Bilirubin AST ALT Alkaline Phosphatase Total Protein Albumin Globulin Albumin/Globulin Ratio Prealbumin Vancomycin Trough Random Vancomycin Crossmatch 05/19/18 05/19/18 05/19/18 03:45 03:45 03:45 WBC 23.2 H RBC 3.34 L Hgb 11.6 L Hct 33.9 L MCV 101.5 H MCH 34.7 H MCHC 34.2 RDW 18.7 H RDW Differential 69.4 H Plt Count 446 MPV 11.7 Neut % (Auto) Not Reportable Absolute Neuts (auto) 21.3 H Absolute Lymphs (auto) 0.46 L Total Counted 100 Neutrophils % (Manual) 50 Band Neutrophils % 36 H Lymphocytes % (Manual) 2 L Monocytes % (Manual) 6 Metamyelocytes % 4 H Myelocytes % 2 H Diff Path Review May foll Toxic Granulation 2+ Platelet Estimate RBC Morphology Anisocytosis 2+ Macrocytosis 1+ PT 17.0 H INR 1.4 APTT Sodium 134 L Potassium 3.3 L Chloride 100 Carbon Dioxide 23.0 Anion Gap 11 BUN 51 H Creatinine 2.00 H Estim Creat Clear Calc 42.57 Est GFR (MDRD) Af Amer 44 L Est GFR (MDRD) Non-Af 36 L BUN/Creatinine Ratio 25.5 H Glucose 150 H Calcium 6.4 L* Phosphorus 4.7 Magnesium 2.8 H Total Bilirubin 1.80 H AST 76 H ALT 25 Alkaline Phosphatase 96 Total Protein 4.8 L Albumin 1.4 L Globulin 3.4 Albumin/Globulin Ratio 0.4 L Prealbumin Vancomycin Trough Random Vancomycin Crossmatch 05/19/18 05/19/18 05/19/18 03:45 12:25 12:45 WBC RBC Hgb Hct MCV MCH MCHC RDW RDW Differential Plt Count MPV Neut % (Auto) Absolute Neuts (auto) Absolute Lymphs (auto) Total Counted Neutrophils % (Manual) Band Neutrophils % Lymphocytes % (Manual) Monocytes % (Manual) Metamyelocytes % Myelocytes % Diff Path Review Toxic Granulation Platelet Estimate RBC Morphology Anisocytosis Macrocytosis PT INR APTT 84.2 H 95.3 H* Sodium Potassium Chloride Carbon Dioxide Anion Gap BUN Creatinine Estim Creat Clear Calc Est GFR (MDRD) Af Amer Est GFR (MDRD) Non-Af BUN/Creatinine Ratio Glucose Calcium Phosphorus Magnesium Total Bilirubin AST ALT Alkaline Phosphatase Total Protein Albumin Globulin Albumin/Globulin Ratio Prealbumin Vancomycin Trough 21.7 H Random Vancomycin Crossmatch 05/19/18 05/20/18 05/20/18 18:10 00:30 05:25 WBC RBC Hgb Hct MCV MCH MCHC RDW RDW Differential Plt Count MPV Neut % (Auto) Absolute Neuts (auto) Absolute Lymphs (auto) Total Counted Neutrophils % (Manual) Band Neutrophils % Lymphocytes % (Manual) Monocytes % (Manual) Metamyelocytes % Myelocytes % Diff Path Review Toxic Granulation Platelet Estimate RBC Morphology Anisocytosis Macrocytosis PT Pending INR Pending APTT 80.9 H 69.4 H Sodium Potassium Chloride Carbon Dioxide Anion Gap BUN Creatinine Estim Creat Clear Calc Est GFR (MDRD) Af Amer Est GFR (MDRD) Non-Af BUN/Creatinine Ratio Glucose Calcium Phosphorus Magnesium Total Bilirubin AST ALT Alkaline Phosphatase Total Protein Albumin Globulin Albumin/Globulin Ratio Prealbumin Vancomycin Trough Random Vancomycin Crossmatch 05/20/18 05/20/18 05/20/18 05:25 05:25 05:25 WBC Pending RBC Pending Hgb Pending Hct Pending MCV Pending MCH Pending MCHC Pending RDW Pending RDW Differential Pending Plt Count Pending MPV Neut % (Auto) Pending Absolute Neuts (auto) Pending Absolute Lymphs (auto) Total Counted Pending Neutrophils % (Manual) Band Neutrophils % Lymphocytes % (Manual) Monocytes % (Manual) Metamyelocytes % Myelocytes % Diff Path Review Toxic Granulation Platelet Estimate RBC Morphology Anisocytosis Macrocytosis PT INR APTT Sodium Pending Potassium Pending Chloride Pending Carbon Dioxide Pending Anion Gap Pending BUN Pending Creatinine Pending Estim Creat Clear Calc Est GFR (MDRD) Af Amer Pending Est GFR (MDRD) Non-Af Pending BUN/Creatinine Ratio Pending Glucose Pending Calcium Pending Phosphorus Magnesium Total Bilirubin Pending AST Pending ALT Pending Alkaline Phosphatase Pending Total Protein Pending Albumin Pending Globulin Albumin/Globulin Ratio Prealbumin Vancomycin Trough Random Vancomycin Pending Crossmatch 05/20/18 05:25 WBC RBC Hgb Hct MCV MCH MCHC RDW RDW Differential Plt Count MPV Neut % (Auto) Absolute Neuts (auto) Absolute Lymphs (auto) Total Counted Neutrophils % (Manual) Band Neutrophils % Lymphocytes % (Manual) Monocytes % (Manual) Metamyelocytes % Myelocytes % Diff Path Review Toxic Granulation Platelet Estimate RBC Morphology Anisocytosis Macrocytosis PT INR APTT Sodium Potassium Chloride Carbon Dioxide Anion Gap BUN Creatinine Estim Creat Clear Calc Est GFR (MDRD) Af Amer Est GFR (MDRD) Non-Af BUN/Creatinine Ratio Glucose Calcium Phosphorus Pending Magnesium Pending Total Bilirubin AST ALT Alkaline Phosphatase Total Protein Albumin Globulin Albumin/Globulin Ratio Prealbumin Pending Vancomycin Trough Random Vancomycin Crossmatch Microbiology 05/17/18 07:27 Blood Culture (Wb) - Anticubital Right Blood Culture - Preliminary No growth in 48 hours. 05/17/18 08:25 Blood Culture (Wb) - Central Line Blood Culture - Preliminary No growth in 48 hours. 05/12/18 17:05 Blood Culture (Wb) - Anticubital Left Blood Culture - Final No growth in 5 days. 05/12/18 17:10 Blood Culture (Wb) - Left Hand Blood Culture - Final No growth in 5 days. Clinical Impression(s) from Imaging Studies Abdomen/Pelvis CT 05/03/18 07:41 IMPRESSION: Large bladder mass as described causing a marked degree of bladder dilatation. Air is seen within the urinary bladder. This may be related to Maldonado catheter manipulation. If not, a colovesical fistula should be ruled out. Electronically Signed: Johnny Neil MD at 9:02 EST , Service support , Chest X-Ray 05/03/18 09:37 IMPRESSION: Mild cardiomegaly. Electronically Signed: Johnny Neil MD at 10:05 EST , Service support , Abdomen/Pelvis CT 05/04/18 07:00 IMPRESSION: Evaluation was performed to evaluate for a colovesical fistula. Please note that a study prior to injection of rectal contrast was not performed. This somewhat limits evaluation. There is hyperdense material in the bladder at time of prior study May 03, 2018 which most likely represented a hematoma. On today's examination again noted is gas as well as hyperdense material within the bladder. There is intimate association with a segment of the sigmoid colon with the urinary bladder. There is a small focus of gas within the bladder at this region. Findings would be concerning for a colovesical fistula. Correlate with urinalysis. Interval placement of a Maldonado catheter. The previously noted bladder hyperdense masslike lesion has significantly decreased in size. Likely representing a large hematoma. Recommend follow-up to ensure resolution. Diverticulosis is present. There is some thickening of the sigmoid colon with some stranding concerning for diverticulitis. Infrarenal abdominal aortic aneurysm. Decreasing right hydronephrosis. Evidence of prior granulomatous disease. Bilateral nephrolithiasis. Electronically Signed: Dawood Morrison at 7:57 EST Tel , Service support , Chest X-Ray 05/10/18 05:55 IMPRESSION: Atelectasis and/or infiltrates at the lung bases worse on the left side with blunting of left costophrenic angle. Electronically Signed: Johnny Neil MD at 9:43 EST , Service support , Chest X-Ray 05/12/18 16:45 IMPRESSION: 1. Decreased bibasilar atelectasis. No organizing infiltrates seen. 2. Gaseous distention of bowel in the upper abdomen, incompletely visualized. 3. Mild cardiomegaly. Electronically Signed: uTnde Cole MD at 17:03 EST , Service support , Abdomen/Pelvis CT 05/13/18 10:28 IMPRESSION: Small bilateral pleural effusions with bibasilar infiltrates and/or atelectasis. Small amount of perihepatic as well as perisplenic fluid as well as fluid in the pelvis. Small amount of fluid in the Colic gutters. Postoperative changes in the region of the umbilicus there Distention of the ascending colon and transverse colon and descending colon down to the region of the anastomosis at the rectosigmoid junction. A Maldonado catheter seen within the urinary bladder. Electronically Signed: Johnny Neil MD at 13:48 EST , Service support , Chest X-Ray 05/13/18 14:18 IMPRESSION: The tip of the right internal jugular venous catheter is in the proximal portion of the superior vena cava. There is no evidence of pneumothorax. Stable appearance of the lungs. Electronically Signed: Johnny Neil MD at 15:52 EST , Service support , Chest X-Ray 05/13/18 19:24 IMPRESSION: Interval placement endotracheal and enteric tubes as above. at 1955 Reported and signed by: Jason Goins MD Electronically Signed: Jason Goins, at 19:54 EST Tel , Service support , Chest X-Ray 05/16/18 09:45 IMPRESSION: Mild degree of increased markings at the lung bases. Free intraperitoneal air with the dilatation of the colon. Electronically Signed: Johnny Neil, at 14:24 EST , Service support , Abdomen CT 05/17/18 11:30 IMPRESSION: 1. Extensive free air and mild free fluid in the anterior abdomen, concerning for possible anastomotic leak. Open wound may be contributory. 2. Dilated small bowel with gradual transition in the pelvis, possibly due to adhesions. 3. Gas in decompressed bladder may be due to catheter placement or fistula. 4. Small pleural effusions. 5. A 3.2 cm infrarenal AAA. 6. Left femoral head collapse, likely secondary to avascular necrosis. Dr. Mayorga discussed the findings with Dr. Woo at 5:28 PM. N.B. : The above information has been verbally conveyed by Aleena Mayorga MD to Dr. Gerardo Woo MD, on 05/17/2018 17:29:57 (ET). Electronically Signed: Aleena Mayorga MD at 17:31 EST Tel , Service support , ADDENDUM: 05/17/18 1738 IMPRESSION: 1. Extensive free air and mild free fluid in the anterior abdomen, concerning for possible anastomotic leak. Open wound may be contributory. 2. Dilated small bowel with gradual transition in the pelvis, possibly due to adhesions. 3. Gas in decompressed bladder may be due to catheter placement or fistula. 4. Small pleural effusions. 5. A 3.2 cm infrarenal AAA. 6. Left femoral head collapse, likely secondary to avascular necrosis. Dr. Mayorga discussed the findings with Dr. Woo at 5:28 PM. N.B. : The above information has been verbally conveyed by Aleena Mayorga MD to Dr. Gerardo Woo MD, on 05/17/2018 17:29:57 (ET). Electronically Signed: Aleena Mayorga MD at 17:31 EST Tel , Service support , KUB X-Ray 05/17/18 22:56 IMPRESSION: NG tube terminates in the gastric antrum. Electronically Signed: Aleena Mayorga MD at 23:58 EST Tel , Service support , Abdomen CT 05/17/18 22:59 IMPRESSION: Large amount of free intraperitoneal air and moderate free fluid similar to previous. As noted on the prior study, this is more than is normally seen postoperatively and is concerning for bowel perforation or perhaps wound dehiscence. No extraluminal enteric contrast identified. However there is pneumatosis and wall thickening of the ascending colon with immediately adjacent foci of extraluminal air; suspicious for perforation here. Enteric contrast has not yet reached this loop of bowel. Slight interval worsening of bibasal atelectasis versus pneumonia. Several other chronic findings as above similar to prior. Individualized dose optimization techniques were used for this CT. at 0042 Reported and signed by: Jason Goins MD Electronically Signed: Jason Goins, at 0:40 EST Tel , Service support , ADDENDUM: 05/18/18 0052 IMPRESSION: Large amount of free intraperitoneal air and moderate free fluid similar to previous. As noted on the prior study, this is more than is normally seen postoperatively and is concerning for bowel perforation or perhaps wound dehiscence. No extraluminal enteric contrast identified. However there is pneumatosis and wall thickening of the ascending colon with immediately adjacent foci of extraluminal air; suspicious for perforation here. Enteric contrast has not yet reached this loop of bowel. Slight interval worsening of bibasal atelectasis versus pneumonia. Several other chronic findings as above similar to prior. Individualized dose optimization techniques were used for this CT. at 0042 Reported and signed by: Jason Goins MD N.B. : The above information has been verbally conveyed by Jason Goins to Yoly Gallo RN, on 05/18/2018 00:45:57 (ET). Electronically Signed: Jason Goins, at 0:40 EST Tel , Service support , Chest X-Ray 05/18/18 04:38 IMPRESSION: Compressive atelectasis in the right and left lung lower lobes. Small bilateral pleural effusions. Electronically Signed: Constanza Archer, at 7:53 EST Tel , Service support , Chest X-Ray 05/20/18 00:20 IMPRESSION: Compressive atelectasis in the right and left lung lower lobes. Small bilateral pleural effusions. Electronically Signed: Constanza Archer, at 0:52 EST Tel , Service support , Medical Necessity - Tobacco Use Smoking Status: Current every day smoker Tobacco Use: Cigarettes Assessment/Plan All Active Problems (Last Reviewed 05/04/18 @ 08:39 by Prasanth Pradhan MD) Gross hematuria (Acute) Overweight (Acute) MASOOD (obstructive sleep apnea) (Acute) Colovesical fistula (Acute) Large bowel anastomotic leak (Acute) Sepsis associated hypotension (Acute) Perforated abdominal viscus (Acute) Perforated viscus (Acute) Acute kidney injury (Acute) RECOMMENDATIONS: 1. Continue broad-spectrum antibiotics, per infectious diseases recommendations. 2. Continue vasopressor support as ordered. Wean as tolerated to maintain a mean arterial pressure at or above 65 mmHg. 3. Aggressive electrolyte repletion. 4. Continue TPN. Total volume will be decreased to 1 L daily, given the patient's volume overloaded state. 5. Continue heparin drip. 6. Continue appropriate ICU prophylaxis 7. Continue to wean FiO2 as tolerated to maintain an oxygen saturation at or above 90%. 8. Nephrology following with plans to initiate hemodialysis. 9. We will place left-sided triple-lumen catheter and guidewire exchange out the right to a temporary HD catheter. 10. We will discuss with ID about the possibility of adding antifungal coverage. IMPRESSIONS: 1. Septic shock secondary to perforated viscus, now POD #2 s/p exploratory laparotomy and repair of perforated jejunum The patient is currently on broad-spectrum antimicrobials. Infectious diseases is following. He remains on dual vasopressor support in an attempt to maintain hemodynamic stability. This will be continued in an attempt to maintain a mean arterial pressure at or above 65 mmHg. While the patient's vasopressor requirement is decreasing, his white blood cell count did increase this morning. Cultures have been unrevealing to date. I recommended judicious use of supplemental IV fluids, given the patient's underlying cardiomyopathy and current volume overloaded state. TPN will be continued for nutritional support. 2. Acute respiratory failure The patient returns to the ICU following surgery on invasive mechanical ventilation. At this time, the patient's clinical state is far too tenuous to consider aggressive weaning from mechanical ventilatory support. Unfortunately, the patient will likely need some form of volume optimization in order to wean his FiO2. Nevertheless, his hemodynamics are far too tenuous to even attempt volume removal at this time. We will plan to continue to wean FiO2 as tolerated. 3. Coronary artery disease/chronic systolic heart failure Continue current medical therapy. Continue to hold Lasix and beta-bravo. 4. Paroxysmal atrial fibrillation/chronic anticoagulation status The patient's anticoagulation was fully reversed in preparation for surgery. Given his tenuous clinical status, recommend continuing heparin drip as ordered. 5. Hypokalemia Electrolyte repletion has been ordered. Recommend rechecking levels in the morning. 6. Acute kidney injury Likely prerenal in etiology and related to ischemic ATN in the setting of #1. Will continue current supportive measures as noted above. Nephrology is currently following. Anticipate need for hemodialysis support in the very near future. 7. History of obstructive sleep apnea The patient reports a history of noncompliance with the use of nocturnal Pap therapy. TIME: 40 minutes of critical care time, independent of procedures, was spent addressing the patient's septic shock, perforated viscus, acute respiratory failure, coronary artery disease, biventricular heart failure, paroxysmal atrial fibrillation, hypokalemia, acute kidney injury, review of all data and collaboration with the care team. ([id number]) Code Visit [id number]: [id number] Critical care first hour
[2018-05-20 06:42] LABS: International Normalized Ratio 1.5; Prothrombin Time (Protime)PT. 17.9 SECONDS (11.7-14.9)
[2018-05-20 06:48] LABS: ALB/GLOB Ratio 0.4 RATIO (0.9-2.4); AST(SGOT) 113 U/L (15-37); Alanine Aminotransfer ALT/SGPT 30 U/L (16-61); Albumin, Serum 1.2 g/dL (3.2-5.0); Alkaline Phosphatase 135 U/L (45-117); Anion Gap 13 (5-15); BUN 60 mg/dL (7-18); BUN/Creat Ratio 23.6 RATIO (10-20); Calcium,Total 6.4 mg/dL (8.5-10.1); Chloride 98 mmol/L (98-107); Creatinine, Serum 2.54 mg/dL (0.70-1.30); EST Glomerular Filtration Rate 28 mL/min (>60); Est Glom Filt Rate - Afr Amer 33 mL/min (>60); Estimated Creatinine Clearance 33.52 ml/min; Globulin 3.4 g/dL (2.2-4.2); Glucose 232 mg/dL (74-106); Potassium 2.6 mmol/L (3.5-5.1); Protein, Total 4.6 g/dL (6.4-8.2); Sodium Level 131 mmol/L (136-145)
[2018-05-20 06:52] LABS: Hematocrit 29.9 % (40-54); Hemoglobin 10.1 g/dl (13.0-16.5); Mean Corp Hgb Conc 33.8 g/gl (32-36); Mean Corpuscular Hgb 34.5 pg (27.0-32.0); Platelet Count 428 K/mm3 (150-450); RBC Distribution Width CV 18.7 % (11.6-14.6); RBC Distribution Width SD 69.9 fl (35.1-43.9); Red Blood Count 2.93 M/mm3 (4.6-6.2)
[2018-05-20 07:05] LABS: Differential Indicated MANUAL DIFF; POSITIVE COUNT YES; POSITIVE DIFFERENTIAL YES; POSITIVE MORPHOLOGY YES; White Blood Count 30.6 K/mm3 (4.4-11.0)
[2018-05-20 07:13] LABS: Magnesium 2.9 mg/dL (1.6-2.6); Phosphorus 4.9 mg/dL (2.5-4.9); Prealbumin < 3.0 mg/dL (20.0-40.0)
[2018-05-20 07:16] LABS: Anisocytosis 1+; Hypochromasia 1+; Lymphocyte 4 % (19-41); Metamyelocyte 1 % (0-1); Microcytosis 1+; Monocyte 4 % (0-10); Neutrophil-Band 6 % (0-5); Neutrophil-Segmented 85 % (47-70); Total Cells Counted 100 (MANUAL DIFF)
[2018-05-20 07:17] LABS: Platelet Estimate ADEQUATE (ADEQ); Platelet Morphology LARGE; Polychromasia RARE
[2018-05-20 07:18] LABS: Absolute Lymphocyte Count 1.22 X10^3/ul (0.83-4.51); Absolute Neutrophil Count 27.8 X10^3/uL (2.0-7.7)
[2018-05-20 07:19] LABS: Partial Thromboplast Time 97.7 Seconds (24.1-36.2)
--- NOTE | 2018-05-20 07:23 | PCM.PN.HOSP ---
Patient Problems: Active and Suspected Problems (Last Reviewed 05/04/18 @ 08:39 by Prasanth Pradhan MD) Gross hematuria (Acute) Overweight (Acute) MASOOD (obstructive sleep apnea) (Acute) non-compliant with CPAP Peripheral arterial disease (Suspected) Colovesical fistula (Acute) Large bowel anastomotic leak (Acute) Sepsis associated hypotension (Acute) Perforated abdominal viscus (Acute) Perforated viscus (Acute) Acute kidney injury (Acute) Subjective: Patient was seen and examined. He is awake alert. Intubated, nods and writes on a board in answering questions. He writes that his abdominal pain is 4 out of 10. Blood pressure continues to be low, remains on Levophed and vasopressin. colostomy bag(LUQ) has pinkish bloody discharge. He is on heparin drip, andTPN with lipids No fevers overnight. Remains anuric Vitals/I&O's: Vital Signs Temp Pulse Resp BP Pulse Ox 98.2 F 106 H 18 95/53 L 91 05/20/18 06:00 05/20/18 06:00 05/20/18 06:00 05/20/18 06:00 05/20/18 06:00 Oxygen Flow Rate (L/min) 60 Oxygen Delivery Method Mechanical Ventilator Weight: 118.1 kg Body Mass Index (BMI) 29.9 Intake and Output for Last 24 Hours 05/18/18 05/19/18 05/20/18 23:59 23:59 23:59 Intake Total 5822.2 / 5822.2 3246.0 / 3246.0 1725.8 / 1725.8 Output Total 3075 / 3075 1375 / 1375 260 / 260 Balance 2747.2 / 2747.2 1871.0 / 1871.0 1465.8 / 1465.8 General: Alert, Oriented x3, Cooperative, - - intubated, on mechanical ventilator, appears comfortable HEENT: Atraumatic, PERRLA, EOMI, Normocephalic Neck: Supple, No JVD, Negative Carotid Bruits Lungs: Normal air movement, Diminished - no rhonchi heard Cardiovascular: Regular rate, Regular Rhythm, Normal S1, Normal S2, No murmurs Abdomen: Bowel Sounds Present - and normal in all 4 quadrants, Soft, Non-Distended, Tender - generalised without guarding and RBT, - - midline dressing is intact, LLQ colostomy has serosanguinous fluid Extremities: Edema - +3-4 pitting, non-tender edema Skin: - - weeping of serosanguinous fluid from bilateral legs Musculoskeletal: No Tenderness to Palpation of Joints or Extremities Lymphatic: No Cervical, Supraclavicular, or Inguinal Adenopathy Neurological: Cranial nerves II-XII grossly intact Psych/Mental Status: Normal Affect, Appropriate Microbiology Past 72 Hours 05/17/18 07:27 Blood Culture (Wb) - Anticubital Right Blood Culture - Preliminary No growth in 48 hours. 05/17/18 08:25 Blood Culture (Wb) - Central Line Blood Culture - Preliminary No growth in 48 hours. 05/12/18 17:05 Blood Culture (Wb) - Anticubital Left Blood Culture - Final No growth in 5 days. 05/12/18 17:10 Blood Culture (Wb) - Left Hand Blood Culture - Final No growth in 5 days. Laboratory Results 05/19/18 12:25: APTT 95.3 H* 05/19/18 12:45: Vancomycin Trough 21.7 H 05/19/18 18:10: APTT 80.9 H 05/20/18 00:30: APTT 69.4 H 05/20/18 05:25: PT 17.9 H, INR 1.5 05/20/18 05:25: WBC 30.6 H*, RBC 2.93 L, Hgb 10.1 L, Hct 29.9 L, MCV 102.0 H, MCH 34.5 H, MCHC 33.8, RDW 18.7 H, RDW Differential 69.9 H, Plt Count 428, MPV 12.0, Neut % (Auto) Not Reportable, Absolute Neuts (auto) 27.8 H, Absolute Lymphs (auto) 1.22, Total Counted 100, Neutrophils % (Manual) 85 H, Band Neutrophils % 6 H, Lymphocytes % (Manual) 4 L, Monocytes % (Manual) 4, Metamyelocytes % 1, Diff Path Review May foll, Platelet Estimate ADEQUATE, Plt Morphology Comment LARGE, Polychromasia RARE, Hypochromasia 1+, Anisocytosis 1+, Microcytosis 1+ 05/20/18 05:25: Sodium 131 L, Potassium 2.6 L*, Chloride 98, Carbon Dioxide 20.0 L, Anion Gap 13, BUN 60 H, Creatinine 2.54 H, Estim Creat Clear Calc 33.52, Est GFR (MDRD) Af Amer 33 L, Est GFR (MDRD) Non-Af 28 L, BUN/Creatinine Ratio 23.6 H, Glucose 232 H, Calcium 6.4 L*, Total Bilirubin 1.40 H, AST 113 H, ALT 30, Alkaline Phosphatase 135 H, Total Protein 4.6 L, Albumin 1.2 L, Globulin 3.4, Albumin/Globulin Ratio 0.4 L 05/20/18 05:25: Random Vancomycin 15.0 05/20/18 05:25: Phosphorus 4.9, Magnesium 2.9 H, Prealbumin < 3.0 L 05/20/18 06:50: APTT 97.7 H* Current Medications Albuterol/Ipratropium (Duoneb) 3 ml INHALATION Q4H.RT PRN PRN Reason: WHEEZING Last Admin: 05/18/18 22:15 Dose: 3 ml Atorvastatin Calcium (Lipitor) 40 mg NG HS [facility] Last Admin: 05/19/18 21:09 Dose: 40 mg Bisacodyl (Dulcolax) 5 mg PO DAILY PRN PRN PRN Reason: Constipation Calamine/Phenol (Calmoseptine Ointment) 1 applic TOPICAL BID [facility]; Protocol Last Admin: 05/19/18 21:08 Dose: 1 applicatio Chlorhexidine Gluconate () 15 ml PO BID [facility] Last Admin: 05/19/18 21:17 Dose: 15 ml Chlorhexidine Gluconate () 1 each TOPICAL DAILY [facility] Last Admin: 05/20/18 03:09 Dose: 1 each Docusate Sodium (Colace Syrup) 100 mg NG BID [facility] Last Admin: 05/19/18 21:09 Dose: 100 mg Heparin Sodium (Porcine) (Heparin Na) 0 unit IV UD PRN; Protocol Meropenem 1 gm/ Sodium (Chloride) 120 mls @ 33 mls/hr IV Q8 [facility] Last Admin: 05/20/18 05:19 Dose: 33 mls/hr Vancomycin IV Pharmacy to Dose (1 ea/ Sodium Chloride) 500 mls @ 250 mls/hr IV PRN PRN; Protocol PRN Reason: Rx to Dose Vasopressin 40 units/ Sodium (Chloride) 52 mls @ 3.12 mls/hr IV .[id number] [facility] Last Admin: 05/20/18 05:18 Dose: 3.12 mls/hr Pantoprazole Sodium 40 mg/ (Sodium Chloride) 110 mls @ 330 mls/hr IV Q24 [facility] Last Admin: 05/19/18 09:30 Dose: 330 mls/hr Fentanyl () 100 mls @ 5 mls/hr IV .[id number] [facility]; Protocol Last Admin: 05/19/18 18:36 Dose: 5 mls/hr Heparin Sodium/Dextrose () 25,000 units in 250 mls @ 16 mls/hr IV .[id number] [facility]; Protocol Last Admin: 05/20/18 03:09 Dose: 16 mls/hr Multivitamins 10 ml/ Chromium/Copper/Manganese/Seleni/Zn 1 ml/ Folic Acid 1 mg/ Amino Acids/Electrolytes 2,011.2 mls @ 84 mls/hr IV .[id number] [facility] Stop: 05/20/18 15:48 Last Admin: 05/19/18 16:54 Dose: 84 mls/hr Norepinephrine Bitartrate 8 mg (/ Dextrose) 258 mls @ 9.68 mls/hr IV .[id number] [facility] Last Admin: 05/20/18 01:09 Dose: 9.68 mls/hr Potassium Chloride 40 meq/ (Sodium Chloride) 120 mls @ 100 mls/hr IV BOLUS Q1H [facility] Stop: 05/20/18 09:14 Calcium Gluconate 2 gm/ (Dextrose) 120 mls @ 60 mls/hr IV X1 ONE Stop: 05/20/18 09:29 Magnesium Hydroxide (Milk Of Magnesia) 30 ml NG DAILY PRN PRN Reason: Constipation Magnesium Oxide (Mag-Ox 400) 400 mg NG DAILY [facility] Last Admin: 05/19/18 09:31 Dose: 400 mg Ondansetron HCl (Zofran) 4 mg IV Q6H PRN PRN PRN Reason: Nausea Last Admin: 05/16/18 04:56 Dose: 4 mg Sodium Chloride () 5 - 15 ml IV UD PRN PRN Reason: SALINE FLUSH Last Admin: 05/19/18 18:35 Dose: 15 ml Sodium Hypochlorite (Dakins Solution 0.25% (1/2 Strength)) 1 applic TOPICAL BID [facility]; Protocol Last Admin: 05/19/18 21:04 Dose: Not Given Medical Necessity - Tobacco Use Smoking Status: Current every day smoker Tobacco Use: Cigarettes Assessment/Plan All Active Problems (Last Reviewed 05/04/18 @ 08:39 by Prasanth Pradhan MD) Gross hematuria (Acute) Overweight (Acute) MASOOD (obstructive sleep apnea) (Acute) Colovesical fistula (Acute) Large bowel anastomotic leak (Acute) Sepsis associated hypotension (Acute) Perforated abdominal viscus (Acute) Perforated viscus (Acute) Acute kidney injury (Acute) 62-year-old male with past medical history of hypertension, CAD, likely ischemic cardiomyopathy, EF 30%, nicotine dependence who was admitted on 05/02/[address] abdomen and pelvis without contrast showed 8.7 x 8.3 single large mass in the base of the bladder with marked urinary bladder distention air-fluid level suspicious of colovesical fistula. He underwent cystoscopy evacuation of blood clots, laser of a very large bladder stone, evacuation of bladder stone fragments, cystolitholapaxy on 05/03/2018. He subsequently sigmoid colon resection and repair of colovesical fistula on 05/07/2018. His post-op care was complicated with anastomotic leak and patient had exploratory laparotomy and creation of the end colostomy on 05/13/2018. Patient had exploratory laparotomy with jejunal repair on 05/17/2018. He remains in ICU, intubated, mechanical ventilator, on 2 pressors. 1. Septic shock secondary to anastomotic leak/intra-abdominal abscess, not much change, remains on 2 pressors s/p exploratory laparotomy on 05/17/18 Blood cultures showed no growth in 48 hours, urine cultures pending WBC count is worse, increased from 23.2 to 30.6 On IV meropenem and vancomycin; ID consulted Will continue to follow 2. Hypokalemia, being replaced, Mag level is 2.9, corrected calcium is 8.64, recheck levels in a.m. 3. OVI likely secondary to ischemic ATN, anuric, nephrology following, 4. Left lower extremity DVT, developed after surgery, on IV heparin drip, continue per protocol 5. Colovesical fistula status post cystoscopy, evacuation of blood clots, laser of a very large bladder stone, evacuation of bladder stone fragments, cystolitholapaxy. colectomy, s/p hardwick pouch, Remains NPO follow general surgery recommendations, wound nurse following 6. s/p exploratory laparotomy on 05/17/18, pain is fairly controlled, on fentanyl drip, NG tube in situ, will follow up with general surgery recommendation 7. Acute hypoxic respiratory failure, remains on ventilatory support 8. CAD/ischemic cardiomyopathy, EF 30% 9. Hypertension, now hypotensive 10. A. fib with RVR, secondary to septic shock 11. MASOOD, noncompliant with CPAP 12. DVT PPx- On heparin drip Code Visit Inpatient E&M: 35130 Subs Hosp L3
--- NOTE | 2018-05-20 07:53 | PHA.PHARE_ITS ---
Consult Pharmacy has been consulted to manage selected antiobiotic: Vancomycin Type of Consult: Follow-up Suspected Infection: Sepsis Labs: Sodium 131 mmol/L (136-145) L 05/20/18 05:25 Potassium 2.6 mmol/L (3.5-5.1) L* 05/20/18 05:25 Chloride 98 mmol/L (98-107) 05/20/18 05:25 Carbon Dioxide 20.0 mmol/L (21.0-32.0) L 05/20/18 05:25 Anion Gap 13 (5-15) 05/20/18 05:25 BUN 60 mg/dL (7-18) H 05/20/18 05:25 Creatinine 2.54 mg/dL (0.70-1.30) H 05/20/18 05:25 Est GFR (MDRD) Af Amer 33 mL/min (>60) L 05/20/18 05:25 Est GFR (MDRD) Non-Af 28 mL/min (>60) L 05/20/18 05:25 BUN/Creatinine Ratio 23.6 RATIO (10-20) H 05/20/18 05:25 Glucose 232 mg/dL (74-106) H 05/20/18 05:25 Vancomycin Trough 21.7 ug/mL (5.0-15.0) H 05/19/18 12:45 Random Vancomycin 15.0 ug/mL (0.0-15.0) 05/20/18 05:25 Microbiology: Microbiology 05/17/18 07:27 Blood Culture (Wb) - Anticubital Right Blood Culture - Preliminary No growth in 48 hours. 05/17/18 08:25 Blood Culture (Wb) - Central Line Blood Culture - Preliminary No growth in 48 hours. 05/12/18 17:05 Blood Culture (Wb) - Anticubital Left Blood Culture - Final No growth in 5 days. 05/12/18 17:10 Blood Culture (Wb) - Left Hand Blood Culture - Final No growth in 5 days. Weight used for dosin kg Estimated Creatinine Clearance: <10gfr Goal Trough: 10-15 mcg/mL Pharmacy Plan for Drug Dosing: Pt's SrCr has increased from 1.35 to 2.54. Will continue to dose based on random levels drawn every 24 hours. Last level was <20. Per protocol Vanc omycin will be dosed at 15mg/kg and a random level will be drawn at 0600 on 05/21/18 Pharmacy Service will continue to monitor and adjust dosing as required. Follow-Up Labs: Trough Vancomycin Labs to be done on [date and time ordered]: random level 0600 on 05/21/18
--- NOTE | 2018-05-20 09:30 | NURSING ---
update given via phone to pts father. disc pt mentation, CAM neg, need for dialysis, placement new TL and temp dialysis caths. questions answered
[2018-05-20] MEDS: Menthol/Lanolin/Calamine/Znox 113 GM Tube 1 APPLIC TOPICAL ×2 (09:53→23:08)
[2018-05-20] MEDS: Docusate Sodium 100 MG/10 ML UDC NG ×2 (09:54→23:09)
[2018-05-20] MEDS: Magnesium Oxide 400 MG Tablet NG (09:55)
--- NOTE | 2018-05-20 09:57 | NURSING ---
Removed ostomy appliance from the left lower abdomen. stoma remains edematous. beefy red in color. measures approx 2 1/4. peristomal skin is intact. cleansed with warm water. pat dry. applied a new flat 2 piece Gilberts appliance with a small amount of stoma paste. pt tolerated well. there was a moderate amount of mucous and serosanguineous drainage noted in the old appliance. see stoma photo.
[2018-05-20] MEDS: Chlorhexidine 15 ML PO ×2 (10:00→23:08)
--- NOTE | 2018-05-20 10:12 | NURSING ---
wound photo: abdomen
--- NOTE | 2018-05-20 10:14 | NURSING ---
stoma photo: left lower abdomen
--- NOTE | 2018-05-20 10:56 | CASEMGMT ---
Insurance lookup for [facility] using [facility] website. [facility] if transfer is recommended. Per Debra @ [facility] insurance- ONLY [facility] is [facility]. Antonette WALKERN RN ACM
[2018-05-20 12:12] LABS: Partial Thromboplast Time 75.3 Seconds (24.1-36.2)
[2018-05-20] MEDS: 0.9% NaCl Peripheral Flush Adult/Peds IV ×3 (12:40→17:59)
--- NOTE | 2018-05-20 13:20 | CHAPLAIN ---
Type of Pastoral Visit _x__ Initial Visit ___ Follow-up Visit ___ On-call Visit ___ General Patient Visit ___ Spiritual Assessment ___ Family Conference ___ Bereavement ___ Rapid Response ___ Code Blue ___ Other (describe below) Pastoral Care Referral From ___ Patient ___ Family _x__ Nurse ___ Physician ___ Management Advisor ___ Electroencephalographic Technician ___ Other (describe below) Sacrament/Intervention _x__ Active listening ___ Anointing ___ Mandaeism ___ Bereavement ___ Communion ___ Valentine exploration ___ ___ Life review _x__ Prayer ___ Reconciliation ___ Sacrament of Sick _x__ Supportive presence ___ Wedding ___ Other (describe below) Pastoral Comments patient was able to write down his thoughts and feelings on a white board; [facility] that he had been anxious and confused earlier in the day but was doing fine at the time of visit; pt expressed that this has been a long illness and hospitalization and that his difficulty is not being able to talk and to do anything; pt did say that visitors have come and that has been good; pt had reading material that he is able to use; pt was welcoming of presence of [facility] and the prayers offered for his healing and recovery;
--- NOTE | 2018-05-20 13:46 | PCM.PN.ID ---
Patient Problems: Active and Suspected Problems (Last Reviewed 05/04/18 @ 08:39 by Prasanth Pradhan MD) Gross hematuria (Acute) Overweight (Acute) MASOOD (obstructive sleep apnea) (Acute) non-compliant with CPAP Peripheral arterial disease (Suspected) Colovesical fistula (Acute) Large bowel anastomotic leak (Acute) Sepsis associated hypotension (Acute) Perforated abdominal viscus (Acute) Perforated viscus (Acute) Acute kidney injury (Acute) Subjective: Denies SOB. Abd pain stable. No fever. - Physical Exam General: Alert, Cooperative, No apparent distress Lungs: Diminished Cardiovascular: Tachycardic Abdomen: Distended, Tender - mild Extremities: Edema Skin: No rashes Vital Signs Temp Pulse Resp BP Pulse Ox 99.5 F H 102 H 25 H 86/50 L 92 05/20/18 08:00 05/20/18 11:00 05/20/18 11:00 05/20/18 11:00 05/20/18 11:00 Oxygen Flow Rate (L/min) 60 Oxygen Delivery Method Mechanical Ventilator Weight: 118.1 kg Body Mass Index (BMI) 29.9 Intake and Output for Last 24 Hours 05/18/18 05/19/18 05/20/18 23:59 23:59 23:59 Intake Total 5822.2 / 5822.2 3246.0 / 3246.0 1725.8 / 1725.8 Output Total 3075 / 3075 1375 / 1375 260 / 260 Balance 2747.2 / 2747.2 1871.0 / 1871.0 1465.8 / 1465.8 Microbiology Past 72 Hours 05/17/18 10:25 Urine Culture - Final Urine Catheter - Maldonado Danya albicans 05/17/18 07:27 Blood Culture - Preliminary Blood Culture (Wb) - Anticubital Right No growth in 48 hours. 05/17/18 08:25 Blood Culture - Preliminary Blood Culture (Wb) - Central Line No growth in 48 hours. 05/12/18 17:05 Blood Culture - Final Blood Culture (Wb) - Anticubital Left No growth in 5 days. 05/12/18 17:10 Blood Culture - Final Blood Culture (Wb) - Left Hand No growth in 5 days. Laboratory Tests Past 24 Hrs 05/19/18 05/20/18 05/20/18 18:10 00:30 05:25 WBC RBC Hgb Hct MCV MCH MCHC RDW RDW Differential Plt Count MPV Neut % (Auto) Absolute Neuts (auto) Absolute Lymphs (auto) Total Counted Neutrophils % (Manual) Band Neutrophils % Lymphocytes % (Manual) Monocytes % (Manual) Metamyelocytes % Diff Path Review Platelet Estimate Plt Morphology Comment Polychromasia Hypochromasia Anisocytosis Microcytosis PT 17.9 H INR 1.5 APTT 80.9 H 69.4 H Sodium Potassium Chloride Carbon Dioxide Anion Gap BUN Creatinine Estim Creat Clear Calc Est GFR (MDRD) Af Amer Est GFR (MDRD) Non-Af BUN/Creatinine Ratio Glucose Calcium Phosphorus Magnesium Total Bilirubin AST ALT Alkaline Phosphatase Total Protein Albumin Globulin Albumin/Globulin Ratio Prealbumin Random Vancomycin 05/20/18 05/20/18 05/20/18 05:25 05:25 05:25 WBC 30.6 H* RBC 2.93 L Hgb 10.1 L Hct 29.9 L MCV 102.0 H MCH 34.5 H MCHC 33.8 RDW 18.7 H RDW Differential 69.9 H Plt Count 428 MPV 12.0 Neut % (Auto) Not Reportable Absolute Neuts (auto) 27.8 H Absolute Lymphs (auto) 1.22 Total Counted 100 Neutrophils % (Manual) 85 H Band Neutrophils % 6 H Lymphocytes % (Manual) 4 L Monocytes % (Manual) 4 Metamyelocytes % 1 Diff Path Review May foll Platelet Estimate ADEQUATE Plt Morphology Comment LARGE Polychromasia RARE Hypochromasia 1+ Anisocytosis 1+ Microcytosis 1+ PT INR APTT Sodium 131 L Potassium 2.6 L* Chloride 98 Carbon Dioxide 20.0 L Anion Gap 13 BUN 60 H Creatinine 2.54 H Estim Creat Clear Calc 33.52 Est GFR (MDRD) Af Amer 33 L Est GFR (MDRD) Non-Af 28 L BUN/Creatinine Ratio 23.6 H Glucose 232 H Calcium 6.4 L* Phosphorus Magnesium Total Bilirubin 1.40 H AST 113 H ALT 30 Alkaline Phosphatase 135 H Total Protein 4.6 L Albumin 1.2 L Globulin 3.4 Albumin/Globulin Ratio 0.4 L Prealbumin Random Vancomycin 15.0 05/20/18 05/20/18 05/20/18 05:25 06:50 11:55 WBC RBC Hgb Hct MCV MCH MCHC RDW RDW Differential Plt Count MPV Neut % (Auto) Absolute Neuts (auto) Absolute Lymphs (auto) Total Counted Neutrophils % (Manual) Band Neutrophils % Lymphocytes % (Manual) Monocytes % (Manual) Metamyelocytes % Diff Path Review Platelet Estimate Plt Morphology Comment Polychromasia Hypochromasia Anisocytosis Microcytosis PT INR APTT 97.7 H* 75.3 H Sodium Potassium Chloride Carbon Dioxide Anion Gap BUN Creatinine Estim Creat Clear Calc Est GFR (MDRD) Af Amer Est GFR (MDRD) Non-Af BUN/Creatinine Ratio Glucose Calcium Phosphorus 4.9 Magnesium 2.9 H Total Bilirubin AST ALT Alkaline Phosphatase Total Protein Albumin Globulin Albumin/Globulin Ratio Prealbumin < 3.0 L Random Vancomycin Medical Necessity - Tobacco Use Smoking Status: Current every day smoker Tobacco Use: Cigarettes Route of nutrition/ use of supplements: [] Nutritional Intake: [] IV Site: [] Maldonado Catheter: [] - Assessment/Plan Antibiotics: [] Assessment/Plan: [] Active and Suspected Problems (Last Reviewed 05/04/18 @ 08:39 by Prasanth Pradhan MD) Gross hematuria (Acute) Overweight (Acute) MASOOD (obstructive sleep apnea) (Acute) non-compliant with CPAP Peripheral arterial disease (Suspected) Colovesical fistula (Acute) Large bowel anastomotic leak (Acute) Sepsis associated hypotension (Acute) Hypotension with recent abd surgeries for colovesicular fistula on 05/03 and anastamotic leak on 05/13 and 05/18. On vanc/meropenem. Now with rising wbc, Cr, and worsened pressor requirements. Had some danya in urine. Will add fluconazole. Adjusting meropenem dose, he is starting HD soon. If condition worsens, would repeat CT abd/pelvis. Will follow, d/w Dr. Woo
--- NOTE | 2018-05-20 13:48 | PCM.PN.SRG ---
Patient Problems: Active and Suspected Problems (Last Reviewed 05/04/18 @ 08:39 by Prasanth Pradhan MD) Gross hematuria (Acute) Overweight (Acute) MASOOD (obstructive sleep apnea) (Acute) non-compliant with CPAP Peripheral arterial disease (Suspected) Colovesical fistula (Acute) Large bowel anastomotic leak (Acute) Sepsis associated hypotension (Acute) Perforated abdominal viscus (Acute) Perforated viscus (Acute) Acute kidney injury (Acute) Subjective: Marginal progress with regards to blood pressure last night. Urine output has been low some debris is located within the Maldonado catheter. Patient is awake he appears frustrated. Infectious disease is asked to add some antifungal coverage. Patient's white count has elevated significantly today. Stoma is pink it does have slight output. Objective: Dressing is dry does have some discharge from inferior aspect. Stoma is pink not much coming out from his NG tube. - Physical Exam Vital Signs Temp Pulse Resp BP Pulse Ox 99.5 F H 102 H 25 H 86/50 L 92 05/20/18 08:00 05/20/18 11:00 05/20/18 11:00 05/20/18 11:00 05/20/18 11:00 Oxygen Flow Rate (L/min) 60 Oxygen Delivery Method Mechanical Ventilator Weight: 260 lb 5.855 oz Body Mass Index (BMI) 29.9 Intake and Output for Last 24 Hours 05/18/18 05/19/18 05/20/18 23:59 23:59 23:59 Intake Total 5822.2 / 5822.2 3246.0 / 3246.0 1725.8 / 1725.8 Output Total 3075 / 3075 1375 / 1375 260 / 260 Balance 2747.2 / 2747.2 1871.0 / 1871.0 1465.8 / 1465.8 Microbiology Past 72 Hours 05/17/18 10:25 Urine Culture - Final Urine Catheter - Maldonado Danya albicans 05/17/18 07:27 Blood Culture - Preliminary Blood Culture (Wb) - Anticubital Right No growth in 48 hours. 05/17/18 08:25 Blood Culture - Preliminary Blood Culture (Wb) - Central Line No growth in 48 hours. 05/12/18 17:05 Blood Culture - Final Blood Culture (Wb) - Anticubital Left No growth in 5 days. 05/12/18 17:10 Blood Culture - Final Blood Culture (Wb) - Left Hand No growth in 5 days. Laboratory Tests Past 24 Hrs 05/19/18 05/20/18 05/20/18 18:10 00:30 05:25 WBC RBC Hgb Hct MCV MCH MCHC RDW RDW Differential Plt Count MPV Neut % (Auto) Absolute Neuts (auto) Absolute Lymphs (auto) Total Counted Neutrophils % (Manual) Band Neutrophils % Lymphocytes % (Manual) Monocytes % (Manual) Metamyelocytes % Diff Path Review Platelet Estimate Plt Morphology Comment Polychromasia Hypochromasia Anisocytosis Microcytosis PT 17.9 H INR 1.5 APTT 80.9 H 69.4 H Sodium Potassium Chloride Carbon Dioxide Anion Gap BUN Creatinine Estim Creat Clear Calc Est GFR (MDRD) Af Amer Est GFR (MDRD) Non-Af BUN/Creatinine Ratio Glucose Calcium Phosphorus Magnesium Total Bilirubin AST ALT Alkaline Phosphatase Total Protein Albumin Globulin Albumin/Globulin Ratio Prealbumin Random Vancomycin 05/20/18 05/20/18 05/20/18 05:25 05:25 05:25 WBC 30.6 H* RBC 2.93 L Hgb 10.1 L Hct 29.9 L MCV 102.0 H MCH 34.5 H MCHC 33.8 RDW 18.7 H RDW Differential 69.9 H Plt Count 428 MPV 12.0 Neut % (Auto) Not Reportable Absolute Neuts (auto) 27.8 H Absolute Lymphs (auto) 1.22 Total Counted 100 Neutrophils % (Manual) 85 H Band Neutrophils % 6 H Lymphocytes % (Manual) 4 L Monocytes % (Manual) 4 Metamyelocytes % 1 Diff Path Review May foll Platelet Estimate ADEQUATE Plt Morphology Comment LARGE Polychromasia RARE Hypochromasia 1+ Anisocytosis 1+ Microcytosis 1+ PT INR APTT Sodium 131 L Potassium 2.6 L* Chloride 98 Carbon Dioxide 20.0 L Anion Gap 13 BUN 60 H Creatinine 2.54 H Estim Creat Clear Calc 33.52 Est GFR (MDRD) Af Amer 33 L Est GFR (MDRD) Non-Af 28 L BUN/Creatinine Ratio 23.6 H Glucose 232 H Calcium 6.4 L* Phosphorus Magnesium Total Bilirubin 1.40 H AST 113 H ALT 30 Alkaline Phosphatase 135 H Total Protein 4.6 L Albumin 1.2 L Globulin 3.4 Albumin/Globulin Ratio 0.4 L Prealbumin Random Vancomycin 15.0 05/20/18 05/20/18 05/20/18 05:25 06:50 11:55 WBC RBC Hgb Hct MCV MCH MCHC RDW RDW Differential Plt Count MPV Neut % (Auto) Absolute Neuts (auto) Absolute Lymphs (auto) Total Counted Neutrophils % (Manual) Band Neutrophils % Lymphocytes % (Manual) Monocytes % (Manual) Metamyelocytes % Diff Path Review Platelet Estimate Plt Morphology Comment Polychromasia Hypochromasia Anisocytosis Microcytosis PT INR APTT 97.7 H* 75.3 H Sodium Potassium Chloride Carbon Dioxide Anion Gap BUN Creatinine Estim Creat Clear Calc Est GFR (MDRD) Af Amer Est GFR (MDRD) Non-Af BUN/Creatinine Ratio Glucose Calcium Phosphorus 4.9 Magnesium 2.9 H Total Bilirubin AST ALT Alkaline Phosphatase Total Protein Albumin Globulin Albumin/Globulin Ratio Prealbumin < 3.0 L Random Vancomycin Medical Necessity - Tobacco Use Smoking Status: Current every day smoker Tobacco Use: Cigarettes Assessment/Plan All Active Problems (Last Reviewed 05/04/18 @ 08:39 by Prasanth Pradhan MD) Gross hematuria (Acute) Overweight (Acute) MASOOD (obstructive sleep apnea) (Acute) Colovesical fistula (Acute) Large bowel anastomotic leak (Acute) Sepsis associated hypotension (Acute) Perforated abdominal viscus (Acute) Perforated viscus (Acute) Acute kidney injury (Acute) Postoperative day #3 Antifungal antibiotics have been added. For dialysis catheter will be placed over his IJ catheter Still remains in guarded prognosis.
--- NOTE | 2018-05-20 14:09 | PN.RENAL_ITS ---
Patient Problems: Active and Suspected Problems (Last Reviewed 05/04/18 @ 08:39 by Prasanth Pradhan MD) Gross hematuria (Acute) Overweight (Acute) MASOOD (obstructive sleep apnea) (Acute) non-compliant with CPAP Peripheral arterial disease (Suspected) Colovesical fistula (Acute) Large bowel anastomotic leak (Acute) Sepsis associated hypotension (Acute) Perforated abdominal viscus (Acute) Perforated viscus (Acute) Acute kidney injury (Acute) Subjective: events noted - Physical Exam HEENT: Atraumatic, PERRLA, EOMI, Normocephalic Neck: Supple, No JVD, Negative Carotid Bruits Lungs: Clear to auscultation, Normal air movement Cardiovascular: Regular rate, No murmurs Abdomen: Bowel Sounds Present, Soft, Non Tender Extremities: No edema, Capillary Refill Less than 3 Seconds Skin: No rashes, No breakdown Musculoskeletal: No Tenderness to Palpation of Joints or Extremities Vital Signs Temp Pulse Resp BP Pulse Ox 99.5 F H 102 H 25 H 86/50 L 92 05/20/18 08:00 05/20/18 11:00 05/20/18 11:00 05/20/18 11:00 05/20/18 11:00 Oxygen Flow Rate (L/min) 60 Oxygen Delivery Method Mechanical Ventilator Weight: 118.1 kg Body Mass Index (BMI) 29.9 Intake and Output for Last 24 Hours 05/18/18 05/19/18 05/20/18 23:59 23:59 23:59 Intake Total 5822.2 / 5822.2 3246.0 / 3246.0 1725.8 / 1725.8 Output Total 3075 / 3075 1375 / 1375 260 / 260 Balance 2747.2 / 2747.2 1871.0 / 1871.0 1465.8 / 1465.8 Microbiology Past 72 Hours 05/17/18 10:25 Urine Culture - Final Urine Catheter - Maldonado Danya albicans 05/17/18 07:27 Blood Culture - Preliminary Blood Culture (Wb) - Anticubital Right No growth in 48 hours. 05/17/18 08:25 Blood Culture - Preliminary Blood Culture (Wb) - Central Line No growth in 48 hours. 05/12/18 17:05 Blood Culture - Final Blood Culture (Wb) - Anticubital Left No growth in 5 days. 05/12/18 17:10 Blood Culture - Final Blood Culture (Wb) - Left Hand No growth in 5 days. Laboratory Tests Past 24 Hrs 05/19/18 05/20/18 05/20/18 18:10 00:30 05:25 WBC RBC Hgb Hct MCV MCH MCHC RDW RDW Differential Plt Count MPV Neut % (Auto) Absolute Neuts (auto) Absolute Lymphs (auto) Total Counted Neutrophils % (Manual) Band Neutrophils % Lymphocytes % (Manual) Monocytes % (Manual) Metamyelocytes % Diff Path Review Platelet Estimate Plt Morphology Comment Polychromasia Hypochromasia Anisocytosis Microcytosis PT 17.9 H INR 1.5 APTT 80.9 H 69.4 H Sodium Potassium Chloride Carbon Dioxide Anion Gap BUN Creatinine Estim Creat Clear Calc Est GFR (MDRD) Af Amer Est GFR (MDRD) Non-Af BUN/Creatinine Ratio Glucose Calcium Phosphorus Magnesium Total Bilirubin AST ALT Alkaline Phosphatase Total Protein Albumin Globulin Albumin/Globulin Ratio Prealbumin Random Vancomycin 05/20/18 05/20/18 05/20/18 05:25 05:25 05:25 WBC 30.6 H* RBC 2.93 L Hgb 10.1 L Hct 29.9 L MCV 102.0 H MCH 34.5 H MCHC 33.8 RDW 18.7 H RDW Differential 69.9 H Plt Count 428 MPV 12.0 Neut % (Auto) Not Reportable Absolute Neuts (auto) 27.8 H Absolute Lymphs (auto) 1.22 Total Counted 100 Neutrophils % (Manual) 85 H Band Neutrophils % 6 H Lymphocytes % (Manual) 4 L Monocytes % (Manual) 4 Metamyelocytes % 1 Diff Path Review May foll Platelet Estimate ADEQUATE Plt Morphology Comment LARGE Polychromasia RARE Hypochromasia 1+ Anisocytosis 1+ Microcytosis 1+ PT INR APTT Sodium 131 L Potassium 2.6 L* Chloride 98 Carbon Dioxide 20.0 L Anion Gap 13 BUN 60 H Creatinine 2.54 H Estim Creat Clear Calc 33.52 Est GFR (MDRD) Af Amer 33 L Est GFR (MDRD) Non-Af 28 L BUN/Creatinine Ratio 23.6 H Glucose 232 H Calcium 6.4 L* Phosphorus Magnesium Total Bilirubin 1.40 H AST 113 H ALT 30 Alkaline Phosphatase 135 H Total Protein 4.6 L Albumin 1.2 L Globulin 3.4 Albumin/Globulin Ratio 0.4 L Prealbumin Random Vancomycin 15.0 05/20/18 05/20/18 05/20/18 05:25 06:50 11:55 WBC RBC Hgb Hct MCV MCH MCHC RDW RDW Differential Plt Count MPV Neut % (Auto) Absolute Neuts (auto) Absolute Lymphs (auto) Total Counted Neutrophils % (Manual) Band Neutrophils % Lymphocytes % (Manual) Monocytes % (Manual) Metamyelocytes % Diff Path Review Platelet Estimate Plt Morphology Comment Polychromasia Hypochromasia Anisocytosis Microcytosis PT INR APTT 97.7 H* 75.3 H Sodium Potassium Chloride Carbon Dioxide Anion Gap BUN Creatinine Estim Creat Clear Calc Est GFR (MDRD) Af Amer Est GFR (MDRD) Non-Af BUN/Creatinine Ratio Glucose Calcium Phosphorus 4.9 Magnesium 2.9 H Total Bilirubin AST ALT Alkaline Phosphatase Total Protein Albumin Globulin Albumin/Globulin Ratio Prealbumin < 3.0 L Random Vancomycin Medical Necessity - Tobacco Use Smoking Status: Current every day smoker Tobacco Use: Cigarettes Assessment/Plan All Active Problems (Last Reviewed 05/04/18 @ 08:39 by Prasanth Pradhan MD) Gross hematuria (Acute) Overweight (Acute) MASOOD (obstructive sleep apnea) (Acute) Colovesical fistula (Acute) Large bowel anastomotic leak (Acute) Sepsis associated hypotension (Acute) Perforated abdominal viscus (Acute) Perforated viscus (Acute) Acute kidney injury (Acute) OVI. likely ATN from sepsis. he was admitted with colovesical fistula, s/p sigmoid resection, fistula closure with laparotomy. there was some ? urine output noted this am. not sure where this is coming from. Cr continues to go up. WBC is higher remains on 2 pressors, levophed at higher side overall significantly positive since last few days CHF with EF 30% on high Fio2 requirements will go ahead and start [employer]. will run longer slower HD. d/w Dr Woo
[2018-05-20 14:15] LABS: Pathologist Review Reviewed
[2018-05-20 14:18] LABS: Pathologist Review Reviewed
[2018-05-20 14:23] LABS: Pathologist Review Reviewed
[2018-05-20 14:27] LABS: Pathologist Review Reviewed
--- NOTE | 2018-05-20 14:52 | NURSING ---
Kendra Walsh CNP present in pt room. set up for [facility] TL, consent signed 1500 HR 98 R 20 spO2 95% BP 96/56 procedure begin 1505 HR 99 R 15 spO2 94% BP 96/54 cont w/AFib 1510 HR 103 R 22 SpO2 94 BP 88/[address] monitor AFib. call for Stat CXR. Dr. Woo present in room.
--- NOTE | 2018-05-20 15:09 | RAD_ITS ---
STUDY: X-RAY CHEST REASON FOR EXAM: Male, 62 years old. Line placement. TECHNIQUE: Single frontal view of the chest. COMPARISON: May 20, 2018 FINDINGS: There is a new endotracheal tube in place terminating approximately 5.3 cm above the lorenzo. There is a right central venous catheter in place terminating within the superior vena cava. There appears to be a nasogastric tube in place which terminates beyond the inferior margin of the image. There is a persistent right pleural effusion. There is perihilar fullness associated with prominent interstitial markings. There is cardiomegaly. Normal visualized aortic arch and descending thoracic aorta. There are diffuse degenerative changes of the visualized thoracic spine. Normal visualized ribs, clavicles, and shoulders. There is no demonstrated abnormality of the visualized soft tissue structures of the upper abdomen. RAD/CXR for Line Placement IMPRESSION: Endotracheal tube in a grossly satisfactory position. Cardiomegaly. Right pleural effusion, cannot exclude associated right basilar atelectasis and/or pneumonia. Pulmonary venous congestion with possible associated interstitial edema. Electronically Signed: Shelbi Peacock MD at 16:17 EST Tel , Service support ,
[2018-05-20] MEDS: fentaNYL drip 100 ML 5 MCG IV (15:15)
--- NOTE | 2018-05-20 15:18 | PCM.OPRPT ---
Report of Operation Date of Procedure: 05/20/18 Surgery/Procedure Performed:: Triple lumen catheter insertion Description of Surgical Findings:: Central line placement procedure note Indication: IV access/hemodynamic instability/vasoactive medications Procedure: A time-out was completed to verify correct patient, indication, medication allergies, procedure, coagulation studies, informed consent signed, and equipment needed. The patient was placed in the supine position for a central line placement to the left IJ vein. The patients left neck was prepped using chlorhexidine and a full body sterile drape was applied. 1% lidocaine was used to anesthetize the surrounding skin. A 7fr 20 cm blue guard triple lumen catheter introduced into the internal jugular vein using the modified Seldinger technique with the assistance of ultrasound. The catheter was threaded smoothly over the guidewire, the guidewire was removed easily, nonpulsatile blood returned. All ports were aspirated of air and flushed with sterile saline. The catheter was sutured in place and covered with an occlusive dressing impregnated with chlorhexidine. Post-procedure: The patient tolerated the procedure well. Vital signs remained stable. EBL 3 cc. No complications. Chest X Ray ordered that confirmed tip placement and the absence of pneumothorax. Code Visit Procedures: [id number] Insert Non-tunnel CV Cath
--- NOTE | 2018-05-20 15:32 | NURSING ---
1530 C Nico VARMA present in pt room, begin prep [facility] temp dialysis cath 1535 HR 98 R 23 SpO2 94% BP 102/58 1540 HR 94 R 14 SpO2 94% BP 95/62 procedure begun 1545 HR 98 R 20 SpO2 94% BP 95/55 1557 1.3ml 1000u/ml heparin blue port 1.3ml 1000u/ml heparin brown port CXR ordered.
--- NOTE | 2018-05-20 15:55 | RAD_ITS ---
STUDY: X-RAY CHEST REASON FOR EXAM: Male, 62 years old. Dialysis catheter placement. TECHNIQUE: Single frontal view of the chest. COMPARISON: May 20, 2018 3:13 PM FINDINGS: There is a grossly stable right internal jugular venous catheter in place terminating within the expected region of the superior vena cava. There is a grossly stable left central venous catheter in place terminating within the superior vena cava as well. There is an endotracheal tube in place terminating approximately 5.6 cm above the lorenzo. There is a right pleural effusion. There is stable cardiomegaly. There is perihilar fullness. Normal visualized aortic arch and descending thoracic aorta. Normal visualized thoracic spine. Normal visualized ribs, clavicles, and shoulders. There is a nasogastric tube that terminates caudal to the inferior margin of the image. RAD/CXR for Line Placement IMPRESSION: Stable examination as detailed above. Electronically Signed: Shelbi Peacock MD at 16:47 EST Tel , Service support ,
--- NOTE | 2018-05-20 16:05 | PCM.OPRPT ---
Report of Operation Date of Procedure: 05/20/18 Surgery/Procedure Performed:: Temporary hemodialysis catheter insertion Description of Surgical Findings:: Temporary hemodialysis catheter placement procedure note Indication: Hemodialysis Procedure: A time-out was completed to verify correct patient, indication, medication allergies, procedure, coagulation studies, informed consent signed, and equipment needed. The patient was placed in the supine position for a central line placement to the rt IJ femoral vein. The patients rt neck was prepped using chlorhexidine and a full body sterile drape was applied. 1% lidocaine was used to anesthetize the surrounding skin. A 12fr 20 cm temporary hemodialysis catheter introduced into the internal jugular vein over a guidewire into the existing right IJ triple-lumen catheter. The triple-lumen catheter was removed. The site was dilated up twice in a stepwise fashion. The hemodialysis catheter was then placed over the guidewire. All ports were aspirated of air and flushed with sterile saline, and locked with U 1000 heparin 1.3 mL's to each port. The catheter was sutured in place and covered with an occlusive dressing impregnated with chlorhexidine. Post-procedure: The patient tolerated the procedure well. Vital signs remained stable. EBL 5 cc. No complications. Chest X Ray ordered that confirmed tip placement and the absence of pneumothorax. Code Visit Procedures: [id number] Insert Non-tunnel CV Cath
--- NOTE | 2018-05-20 16:09 | OP.PCM_ITS ---
Report of Operation Date of Procedure: 05/20/18 Surgery/Procedure Performed:: Temporary hemodialysis catheter insertion Description of Surgical Findings:: Temporary hemodialysis catheter placement procedure note Indication: Hemodialysis Procedure: A time-out was completed to verify correct patient, indication, medication allergies, procedure, coagulation studies, informed consent signed, and equipment needed. The patient was placed in the supine position for a central line placement to the rt IJ femoral vein. The patients rt neck was prepped using chlorhexidine and a full body sterile drape was applied. 1% lidocaine was used to anesthetize the surrounding skin. A 12fr 20 cm temporary h emodialysis catheter introduced into the internal jugular vein over a guidewire into the existing right IJ triple-lumen catheter. The triple-lumen catheter was removed. The site was dilated up twice in a stepwise fashion. The hemodialysis catheter was then placed over the guidewire. All ports were aspirated of air and flushed with sterile saline, and locked with U 1000 heparin 1.3 mL's to each port. The catheter was sutured in place and covered with an occlusive dressing impregnated with chlorhexidine. Post-procedure: The patient tolerated the procedure well. Vital signs remained stable. EBL 5 cc. No complications. Chest X Ray ordered that confirmed tip placement and the absence of pneumothorax. Code Visit Procedures: [id number] Insert Non-tunnel CV Cath
--- NOTE | 2018-05-20 17:00 | NURSING ---
ed re chronic illness deferred till acute illnes resolving
[2018-05-20] MEDS: Fat Emulsions 20% 500 ML IV (17:38)
[2018-05-20 19:26] LABS: Partial Thromboplast Time 65.1 Seconds (24.1-36.2)
--- NOTE | 2018-05-20 20:45 | NURSING ---
Pt is not wearing restraints for equipment protection. Educated pt on the risks of pulling ETT out by accident and if, by chance, we were not able to insert another one, there is a possibility of . Pt states understanding and still refusing to wear restraints. Pt answers all questions appropriately in yes/no fashion and is CAM Neg with RASS 0.
--- NOTE | 2018-05-20 22:36 | DIALYSIS ---
Hemodialysis completed as ordered. -1000ml off. CVC ran w/o difficulty. closed with heparin to each lumen fill volume. report to MIQUEL SMITH Dilcia.
[2018-05-20] MEDS: Atorvastatin Calcium 40 MG Tablet NG (23:08)
[2018-05-21] VITALS (50 sets, daily range): BP systolic 83–119; BP diastolic 47–69; PULSE 86–117; RESP 15–24; TEMP 36.3–36.8; O2SAT 89–98
[2018-05-21] MEDS: 0.9% NaCl Peripheral Flush Adult/Peds IV ×6 (01:05→18:50)
[2018-05-21 01:40] LABS: Partial Thromboplast Time 67.4 Seconds (24.1-36.2)
[2018-05-21 04:32] LABS: Hematocrit 29.1 % (40-54); Mean Corp Hgb Conc 34.4 g/gl (32-36); Mean Corpuscular Hgb 34.7 pg (27.0-32.0); Mean Platelet Vol. 11.5 fl (6.2-12.0); Platelet Count 347 K/mm3 (150-450); RBC Distribution Width CV 18.4 % (11.6-14.6); RBC Distribution Width SD 68.9 fl (35.1-43.9); Red Blood Count 2.88 M/mm3 (4.6-6.2)
[2018-05-21 04:34] LABS: Differential Indicated MANUAL DIFF; POSITIVE COUNT YES; POSITIVE DIFFERENTIAL YES; POSITIVE MORPHOLOGY YES
[2018-05-21 04:35] LABS: White Blood Count 37.7 K/mm3 (4.4-11.0)
[2018-05-21 04:48] LABS: Smudge Cells 2+
[2018-05-21 04:50] LABS: Anisocytosis 2+; Macrocytosis 1+
[2018-05-21 04:52] LABS: Rouleaux 1+
[2018-05-21 04:54] LABS: Platelet Estimate ADEQUATE (ADEQ)
[2018-05-21 04:57] LABS: Albumin, Serum 1.1 g/dL (3.2-5.0); BUN 45 mg/dL (7-18); Calcium,Total 6.3 mg/dL (8.5-10.1); Chloride 101 mmol/L (98-107); Creatinine, Serum 1.96 mg/dL (0.70-1.30); EST Glomerular Filtration Rate 37 mL/min (>60); Est Glom Filt Rate - Afr Amer 45 mL/min (>60); Estimated Creatinine Clearance 43.44 ml/min; Glucose 204 mg/dL (74-106); Magnesium 2.7 mg/dL (1.6-2.6); Phosphorus 3.9 mg/dL (2.5-4.9); Potassium 3.4 mmol/L (3.5-5.1); Sodium Level 134 mmol/L (136-145)
[2018-05-21 05:22] LABS: Lymphocyte 3 % (19-41); Metamyelocyte 3 % (0-1); Monocyte 6 % (0-10); Myelocyte 1 (0-0); Neutrophil-Band 21 % (0-5); Neutrophil-Segmented 62 % (47-70); Promyelocyte 4 (0-0); Total Cells Counted 100 (MANUAL DIFF)
[2018-05-21 05:23] LABS: Absolute Lymphocyte Count 1.13 X10^3/ul (0.83-4.51); Absolute Neutrophil Count 34.3 X10^3/uL (2.0-7.7); Lymphocyte # 1.13 X10^3/ul (4.0); Toxic Granulation 1+
[2018-05-21 06:40] LABS: Partial Thromboplast Time 103.1 Seconds (24.1-36.2)
[2018-05-21] MEDS: fentaNYL drip 100 ML 5 MCG IV ×2 (06:40→11:06)
--- NOTE | 2018-05-21 06:55 | PCM.PN.INT ---
Subjective: The patient was seen and examined at the bedside this morning. Events from the last 24 hours have been reviewed. The patient remains afebrile, but is still requiring both Levophed and vasopressin to maintain hemodynamic stability. His Levophed requirement remains at 20 mcg. The patient underwent a left-sided triple-lumen catheter placement yesterday and had his right IJ triple-lumen catheter guidewire exchanged to a hemodialysis catheter. The patient then underwent hemodialysis per nephrology recommendations with 1 L of fluid removed. The patient's FiO2 requirement has been weaned down to 45% this morning. Unfortunately, the patient's white blood cell count continues to rise. The patient is now documented to be overall net +15 L for the admission. Potassium is low this morning at 3.4. In addition to the patient's broad antimicrobial coverage, he was placed on antifungal coverage yesterday as well. Objective: The patient's most recent lab work, culture data and imaging studies have all been personally reviewed. A transesophageal echocardiogram from August 2017 revealed evidence of a moderately severe global LV systolic dysfunction with an ejection fraction of 30%. There is also evidence of moderate global RV systolic dysfunction. There was moderate aortic valve stenosis. Infectious workup has largely been unrevealing to date, with the exception of Danya albicans isolated from the urine culture. General: Alert, No apparent distress, - - Remains intubated and mechanically ventilated. HEENT: Atraumatic, PERRLA, Normocephalic Oral: No Gingival or Mucosal Lesions/ Ulcerations, - - Endotracheal tube remains in place. Neck: Supple, No Nodes, Trachea Midline, - - Right-sided temporary hemodialysis catheter and left-sided triple-lumen in place Lungs: No rhonchi, No wheeze, No rales, Diminished Cardiovascular: Regular rate, Regular Rhythm, Normal S1, Normal S2 Abdomen: Soft, Hypoactive Bowel Sounds, - - Abdominal wound with retention sutures, ostomy and RICARDO drains Extremities: No clubbing, No cyanosis, Edema Skin: - - No significant change from previous. Musculoskeletal: No Tenderness to Palpation of Joints or Extremities Lymphatic: No Cervical, Supraclavicular, or Inguinal Adenopathy Neurological: Neuro grossly intact Vital Signs Temp Pulse Resp BP Pulse Ox 36.8 C 93 18 96/48 L 93 05/21/18 04:00 05/21/18 06:00 05/21/18 06:00 05/21/18 06:00 05/21/18 06:00 Oxygen Flow Rate (L/min) 60 Oxygen Delivery Method Mechanical Ventilator Weight: 264 lb 8.875 oz Body Mass Index (BMI) 29.9 Intake and Output for Last 24 Hours 05/19/18 05/20/18 05/21/18 23:59 23:59 23:59 Intake Total 3246.0 / 3246.0 5557.0 / 5557.0 783.5 / 783.5 Output Total 1375 / 1375 3265 / 3265 250 / 250 Balance 1871.0 / 1871.0 2292.0 / 2292.0 533.5 / 533.5 Labs (Last 48 Hours) 05/17/18 05/18/18 05/19/18 21:18 20:05 03:45 WBC RBC Hgb Hct MCV MCH MCHC RDW RDW Differential Plt Count MPV Neut % (Auto) Absolute Neuts (auto) 21.3 H Absolute Lymphs (auto) 0.46 L Total Counted 100 Neutrophils % (Manual) 50 Band Neutrophils % 36 H Lymphocytes % (Manual) 2 L Monocytes % (Manual) 6 Metamyelocytes % 4 H Myelocytes % 2 H Promyelocytes % Diff Path Review Reviewed Reviewed Reviewed Smudge Cells Toxic Granulation 2+ Platelet Estimate Plt Morphology Comment Polychromasia Hypochromasia Anisocytosis 2+ Microcytosis Macrocytosis 1+ Rouleaux PT INR APTT Sodium Potassium Chloride Carbon Dioxide Anion Gap BUN Creatinine Estim Creat Clear Calc Est GFR (MDRD) Af Amer Est GFR (MDRD) Non-Af BUN/Creatinine Ratio Glucose Calcium Phosphorus Magnesium Total Bilirubin AST ALT Alkaline Phosphatase Total Protein Albumin Globulin Albumin/Globulin Ratio Prealbumin Vancomycin Trough Random Vancomycin Hep Bs Antigen Hep Bs Antibody Hep B Core Total Ab 05/19/18 05/19/18 05/19/18 12:25 12:45 18:10 WBC RBC Hgb Hct MCV MCH MCHC RDW RDW Differential Plt Count MPV Neut % (Auto) Absolute Neuts (auto) Absolute Lymphs (auto) Total Counted Neutrophils % (Manual) Band Neutrophils % Lymphocytes % (Manual) Monocytes % (Manual) Metamyelocytes % Myelocytes % Promyelocytes % Diff Path Review Smudge Cells Toxic Granulation Platelet Estimate Plt Morphology Comment Polychromasia Hypochromasia Anisocytosis Microcytosis Macrocytosis Rouleaux PT INR APTT 95.3 H* 80.9 H Sodium Potassium Chloride Carbon Dioxide Anion Gap BUN Creatinine Estim Creat Clear Calc Est GFR (MDRD) Af Amer Est GFR (MDRD) Non-Af BUN/Creatinine Ratio Glucose Calcium Phosphorus Magnesium Total Bilirubin AST ALT Alkaline Phosphatase Total Protein Albumin Globulin Albumin/Globulin Ratio Prealbumin Vancomycin Trough 21.7 H Random Vancomycin Hep Bs Antigen Hep Bs Antibody Hep B Core Total Ab 05/20/18 05/20/18 05/20/18 00:30 05:25 05:25 WBC 30.6 H* RBC 2.93 L Hgb 10.1 L Hct 29.9 L MCV 102.0 H MCH 34.5 H MCHC 33.8 RDW 18.7 H RDW Differential 69.9 H Plt Count 428 MPV 12.0 Neut % (Auto) Not Reportable Absolute Neuts (auto) 27.8 H Absolute Lymphs (auto) 1.22 Total Counted 100 Neutrophils % (Manual) 85 H Band Neutrophils % 6 H Lymphocytes % (Manual) 4 L Monocytes % (Manual) 4 Metamyelocytes % 1 Myelocytes % Promyelocytes % Diff Path Review Reviewed Smudge Cells Toxic Granulation Platelet Estimate ADEQUATE Plt Morphology Comment LARGE Polychromasia RARE Hypochromasia 1+ Anisocytosis 1+ Microcytosis 1+ Macrocytosis Rouleaux PT 17.9 H INR 1.5 APTT 69.4 H Sodium Potassium Chloride Carbon Dioxide Anion Gap BUN Creatinine Estim Creat Clear Calc Est GFR (MDRD) Af Amer Est GFR (MDRD) Non-Af BUN/Creatinine Ratio Glucose Calcium Phosphorus Magnesium Total Bilirubin AST ALT Alkaline Phosphatase Total Protein Albumin Globulin Albumin/Globulin Ratio Prealbumin Vancomycin Trough Random Vancomycin Hep Bs Antigen Hep Bs Antibody Hep B Core Total Ab 05/20/18 05/20/18 05/20/18 05:25 05:25 05:25 WBC RBC Hgb Hct MCV MCH MCHC RDW RDW Differential Plt Count MPV Neut % (Auto) Absolute Neuts (auto) Absolute Lymphs (auto) Total Counted Neutrophils % (Manual) Band Neutrophils % Lymphocytes % (Manual) Monocytes % (Manual) Metamyelocytes % Myelocytes % Promyelocytes % Diff Path Review Smudge Cells Toxic Granulation Platelet Estimate Plt Morphology Comment Polychromasia Hypochromasia Anisocytosis Microcytosis Macrocytosis Rouleaux PT INR APTT Sodium 131 L Potassium 2.6 L* Chloride 98 Carbon Dioxide 20.0 L Anion Gap 13 BUN 60 H Creatinine 2.54 H Estim Creat Clear Calc 33.52 Est GFR (MDRD) Af Amer 33 L Est GFR (MDRD) Non-Af 28 L BUN/Creatinine Ratio 23.6 H Glucose 232 H Calcium 6.4 L* Phosphorus 4.9 Magnesium 2.9 H Total Bilirubin 1.40 H AST 113 H ALT 30 Alkaline Phosphatase 135 H Total Protein 4.6 L Albumin 1.2 L Globulin 3.4 Albumin/Globulin Ratio 0.4 L Prealbumin < 3.0 L Vancomycin Trough Random Vancomycin 15.0 Hep Bs Antigen Hep Bs Antibody Hep B Core Total Ab 05/20/18 05/20/18 05/20/18 06:50 11:55 19:00 WBC RBC Hgb Hct MCV MCH MCHC RDW RDW Differential Plt Count MPV Neut % (Auto) Absolute Neuts (auto) Absolute Lymphs (auto) Total Counted Neutrophils % (Manual) Band Neutrophils % Lymphocytes % (Manual) Monocytes % (Manual) Metamyelocytes % Myelocytes % Promyelocytes % Diff Path Review Smudge Cells Toxic Granulation Platelet Estimate Plt Morphology Comment Polychromasia Hypochromasia Anisocytosis Microcytosis Macrocytosis Rouleaux PT INR APTT 97.7 H* 75.3 H Sodium Potassium Chloride Carbon Dioxide Anion Gap BUN Creatinine Estim Creat Clear Calc Est GFR (MDRD) Af Amer Est GFR (MDRD) Non-Af BUN/Creatinine Ratio Glucose Calcium Phosphorus Magnesium Total Bilirubin AST ALT Alkaline Phosphatase Total Protein Albumin Globulin Albumin/Globulin Ratio Prealbumin Vancomycin Trough Random Vancomycin Hep Bs Antigen Pending Hep Bs Antibody Pending Hep B Core Total Ab Pending 05/20/18 05/21/18 05/21/18 19:05 01:00 04:10 WBC 37.7 H* RBC 2.88 L Hgb 10.0 L Hct 29.1 L MCV 101.0 H MCH 34.7 H MCHC 34.4 RDW 18.4 H RDW Differential 68.9 H Plt Count 347 MPV 11.5 Neut % (Auto) Not Reportable Absolute Neuts (auto) 34.3 H Absolute Lymphs (auto) 1.13 Total Counted 100 Neutrophils % (Manual) 62 Band Neutrophils % 21 H Lymphocytes % (Manual) 3 L Monocytes % (Manual) 6 Metamyelocytes % 3 H Myelocytes % 1 H Promyelocytes % 4 H Diff Path Review May foll Smudge Cells 2+ Toxic Granulation 1+ Platelet Estimate ADEQUATE Plt Morphology Comment Polychromasia Hypochromasia Anisocytosis 2+ Microcytosis Macrocytosis 1+ Rouleaux 1+ PT INR APTT 65.1 H 67.4 H Sodium Potassium Chloride Carbon Dioxide Anion Gap BUN Creatinine Estim Creat Clear Calc Est GFR (MDRD) Af Amer Est GFR (MDRD) Non-Af BUN/Creatinine Ratio Glucose Calcium Phosphorus Magnesium Total Bilirubin AST ALT Alkaline Phosphatase Total Protein Albumin Globulin Albumin/Globulin Ratio Prealbumin Vancomycin Trough Random Vancomycin Hep Bs Antigen Hep Bs Antibody Hep B Core Total Ab 05/21/18 05/21/18 05/21/18 04:10 06:20 06:20 WBC RBC Hgb Hct MCV MCH MCHC RDW RDW Differential Plt Count MPV Neut % (Auto) Absolute Neuts (auto) Absolute Lymphs (auto) Total Counted Neutrophils % (Manual) Band Neutrophils % Lymphocytes % (Manual) Monocytes % (Manual) Metamyelocytes % Myelocytes % Promyelocytes % Diff Path Review Smudge Cells Toxic Granulation Platelet Estimate Plt Morphology Comment Polychromasia Hypochromasia Anisocytosis Microcytosis Macrocytosis Rouleaux PT INR APTT 103.1 H* Sodium 134 L Potassium 3.4 L Chloride 101 Carbon Dioxide 22.0 Anion Gap BUN 45 H Creatinine 1.96 H Estim Creat Clear Calc 43.44 Est GFR (MDRD) Af Amer 45 L Est GFR (MDRD) Non-Af 37 L BUN/Creatinine Ratio 23.0 H Glucose 204 H Calcium 6.3 L* Phosphorus 3.9 Magnesium 2.7 H Total Bilirubin AST ALT Alkaline Phosphatase Total Protein Albumin 1.1 L Globulin Albumin/Globulin Ratio Prealbumin Vancomycin Trough Random Vancomycin Pending Hep Bs Antigen Hep Bs Antibody Hep B Core Total Ab Microbiology 05/20/18 09:35 Wound Drainage - Aerobic & Anaerobic Swabs Gram Stain - Final 05/17/18 10:25 Urine Catheter - Maldonado Urine Culture - Final Danya albicans 05/17/18 07:27 Blood Culture (Wb) - Anticubital Right Blood Culture - Preliminary No growth in 48 hours. 05/17/18 08:25 Blood Culture (Wb) - Central Line Blood Culture - Preliminary No growth in 48 hours. Clinical Impression(s) from Imaging Studies Abdomen/Pelvis CT 05/03/18 07:41 IMPRESSION: Large bladder mass as described causing a marked degree of bladder dilatation. Air is seen within the urinary bladder. This may be related to Maldonado catheter manipulation. If not, a colovesical fistula should be ruled out. Electronically Signed: Johnny Neil MD at 9:02 EST , Service support , Chest X-Ray 05/03/18 09:37 IMPRESSION: Mild cardiomegaly. Electronically Signed: Johnny Neil MD at 10:05 EST , Service support , Abdomen/Pelvis CT 05/04/18 07:00 IMPRESSION: Evaluation was performed to evaluate for a colovesical fistula. Please note that a study prior to injection of rectal contrast was not performed. This somewhat limits evaluation. There is hyperdense material in the bladder at time of prior study May 03, 2018 which most likely represented a hematoma. On today's examination again noted is gas as well as hyperdense material within the bladder. There is intimate association with a segment of the sigmoid colon with the urinary bladder. There is a small focus of gas within the bladder at this region. Findings would be concerning for a colovesical fistula. Correlate with urinalysis. Interval placement of a Maldonado catheter. The previously noted bladder hyperdense masslike lesion has significantly decreased in size. Likely representing a large hematoma. Recommend follow-up to ensure resolution. Diverticulosis is present. There is some thickening of the sigmoid colon with some stranding concerning for diverticulitis. Infrarenal abdominal aortic aneurysm. Decreasing right hydronephrosis. Evidence of prior granulomatous disease. Bilateral nephrolithiasis. Electronically Signed: Dawood Morrison, at 7:57 EST Tel , Service support , Chest X-Ray 05/10/18 05:55 IMPRESSION: Atelectasis and/or infiltrates at the lung bases worse on the left side with blunting of left costophrenic angle. Electronically Signed: Johnny Neil MD at 9:43 EST , Service support , Chest X-Ray 05/12/18 16:45 IMPRESSION: 1. Decreased bibasilar atelectasis. No organizing infiltrates seen. 2. Gaseous distention of bowel in the upper abdomen, incompletely visualized. 3. Mild cardiomegaly. Electronically Signed: Tunde Cole MD at 17:03 EST , Service support , Abdomen/Pelvis CT 05/13/18 10:28 IMPRESSION: Small bilateral pleural effusions with bibasilar infiltrates and/or atelectasis. Small amount of perihepatic as well as perisplenic fluid as well as fluid in the pelvis. Small amount of fluid in the Colic gutters. Postoperative changes in the region of the umbilicus there Distention of the ascending colon and transverse colon and descending colon down to the region of the anastomosis at the rectosigmoid junction. A Maldonado catheter seen within the urinary bladder. Electronically Signed: Johnny Neil MD at 13:48 EST , Service support , Chest X-Ray 05/13/18 14:18 IMPRESSION: The tip of the right internal jugular venous catheter is in the proximal portion of the superior vena cava. There is no evidence of pneumothorax. Stable appearance of the lungs. Electronically Signed: Johnny Neil MD at 15:52 EST , Service support , Chest X-Ray 05/13/18 19:24 IMPRESSION: Interval placement endotracheal and enteric tubes as above. at 1955 Reported and signed by: Jason Goins MD Electronically Signed: Jason Goins at 19:54 EST Tel , Service support , Chest X-Ray 05/16/18 09:45 IMPRESSION: Mild degree of increased markings at the lung bases. Free intraperitoneal air with the dilatation of the colon. Electronically Signed: Johnny Neil, at 14:24 EST , Service support , Abdomen CT 05/17/18 11:30 IMPRESSION: 1. Extensive free air and mild free fluid in the anterior abdomen, concerning for possible anastomotic leak. Open wound may be contributory. 2. Dilated small bowel with gradual transition in the pelvis, possibly due to adhesions. 3. Gas in decompressed bladder may be due to catheter placement or fistula. 4. Small pleural effusions. 5. A 3.2 cm infrarenal AAA. 6. Left femoral head collapse, likely secondary to avascular necrosis. Dr. Mayorga discussed the findings with Dr. Woo at 5:28 PM. N.B. : The above information has been verbally conveyed by Aleena Mayorga MD to Dr. Gerardo Woo MD, on 05/17/2018 17:29:57 (ET). Electronically Signed: Aleena Mayorga MD at 17:31 EST Tel , Service support , ADDENDUM: 05/17/18 0418 IMPRESSION: 1. Extensive free air and mild free fluid in the anterior abdomen, concerning for possible anastomotic leak. Open wound may be contributory. 2. Dilated small bowel with gradual transition in the pelvis, possibly due to adhesions. 3. Gas in decompressed bladder may be due to catheter placement or fistula. 4. Small pleural effusions. 5. A 3.2 cm infrarenal AAA. 6. Left femoral head collapse, likely secondary to avascular necrosis. Dr. Mayorga discussed the findings with Dr. Woo at 5:28 PM. N.B. : The above information has been verbally conveyed by Aleena Mayorga MD to Dr. Gerardo Woo MD, on 05/17/2018 17:29:57 (ET). Electronically Signed: Aleena Mayorga MD at 17:31 EST Tel , Service support , KUB X-Ray 05/17/18 22:56 IMPRESSION: NG tube terminates in the gastric antrum. Electronically Signed: Aleena Mayorga MD at 23:58 EST Tel , Service support , Abdomen CT 05/17/18 22:59 IMPRESSION: Large amount of free intraperitoneal air and moderate free fluid similar to previous. As noted on the prior study, this is more than is normally seen postoperatively and is concerning for bowel perforation or perhaps wound dehiscence. No extraluminal enteric contrast identified. However there is pneumatosis and wall thickening of the ascending colon with immediately adjacent foci of extraluminal air; suspicious for perforation here. Enteric contrast has not yet reached this loop of bowel. Slight interval worsening of bibasal atelectasis versus pneumonia. Several other chronic findings as above similar to prior. Individualized dose optimization techniques were used for this CT. at 0042 Reported and signed by: Jason Goins MD Electronically Signed: Jason Gonis, at 0:40 EST Tel , Service support , ADDENDUM: 05/18/18 0052 IMPRESSION: Large amount of free intraperitoneal air and moderate free fluid similar to previous. As noted on the prior study, this is more than is normally seen postoperatively and is concerning for bowel perforation or perhaps wound dehiscence. No extraluminal enteric contrast identified. However there is pneumatosis and wall thickening of the ascending colon with immediately adjacent foci of extraluminal air; suspicious for perforation here. Enteric contrast has not yet reached this loop of bowel. Slight interval worsening of bibasal atelectasis versus pneumonia. Several other chronic findings as above similar to prior. Individualized dose optimization techniques were used for this CT. at 0042 Reported and signed by: Jason Goins MD N.B. : The above information has been verbally conveyed by Jason Goins to Yoly Gallo RN, on 05/18/2018 00:45:57 (ET). Electronically Signed: Jason Goins, at 0:40 EST Tel , Service support , Chest X-Ray 05/18/18 04:38 IMPRESSION: Compressive atelectasis in the right and left lung lower lobes. Small bilateral pleural effusions. Electronically Signed: Constanza Archer, at 7:53 EST Tel , Service support , Chest X-Ray 05/20/18 00:20 IMPRESSION: Compressive atelectasis in the right and left lung lower lobes. Small bilateral pleural effusions. Electronically Signed: Constanza Archer, at 0:52 EST Tel , Service support , Chest X-Ray 05/20/18 15:09 IMPRESSION: Endotracheal tube in a grossly satisfactory position. Cardiomegaly. Right pleural effusion, cannot exclude associated right basilar atelectasis and/or pneumonia. Pulmonary venous congestion with possible associated interstitial edema. Electronically Signed: Shelbi Peacock MD at 16:17 EST Tel , Service support , Chest X-Ray 05/20/18 15:55 IMPRESSION: Stable examination as detailed above. Electronically Signed: Shelbi Peacock MD at 16:47 EST Tel , Service support , Medical Necessity - Tobacco Use Smoking Status: Current every day smoker Tobacco Use: Cigarettes Assessment/Plan All Active Problems (Last Reviewed 05/04/18 @ 08:39 by Prasanth Pradhan MD) Gross hematuria (Acute) Overweight (Acute) MASOOD (obstructive sleep apnea) (Acute) Colovesical fistula (Acute) Large bowel anastomotic leak (Acute) Sepsis associated hypotension (Acute) Perforated abdominal viscus (Acute) Perforated viscus (Acute) Acute kidney injury (Acute) RECOMMENDATIONS: 1. Continue broad-spectrum antibiotics, per infectious diseases recommendations. 2. Continue vasopressor support as ordered. Wean as tolerated to maintain a mean arterial pressure at or above 65 mmHg. 3[address] Obt[address] repeat [address] abdomen/pelvis with p.o. contrast 4. Aggressive electrolyte repletion. 5. Continue TPN. Consider starting trickle tube feeds. 6. Continue heparin drip. 7. Continue appropriate ICU prophylaxis 8. Continue to wean FiO2 as tolerated to maintain an oxygen saturation at or above 90%. 9. Continue hemodialysis per nephrology recommendations. IMPRESSIONS: 1. Septic shock secondary to perforated viscus s/p exploratory laparotomy and repair of perforated jejunum The patient is currently on broad-spectrum antimicrobials. Infectious diseases is following. He remains on dual vasopressor support in an attempt to maintain hemodynamic stability. This will be continued in an attempt to maintain a mean arterial pressure at or above 65 mmHg. Cultures have been unrevealing to date. I recommended judicious use of supplemental IV fluids, given the patient's underlying cardiomyopathy and current volume overloaded state. TPN will be continued for nutritional support. Given the patient's rising white blood cell count, a repeat CT abdomen was obtained this morning. Given the colitis noted on abdominal imaging, I discussed the possibility of starting the patient on treatment for C. difficile with infectious diseases. 2. Acute respiratory failure The patient returns to the ICU following surgery on invasive mechanical ventilation. At this time, the patient's clinical state is far too tenuous to consider aggressive weaning from mechanical ventilatory support. Unfortunately, the patient will likely need some form of volume optimization in order to wean his FiO2. Nephrology is following to assist with volume optimization through hemodialysis. 3. Coronary artery disease/chronic systolic heart failure Continue current medical therapy. Continue to hold Lasix and beta-bravo. 4. Paroxysmal atrial fibrillation/chronic anticoagulation status The patient's anticoagulation was fully reversed in preparation for surgery. Given his tenuous clinical status, recommend continuing heparin drip as ordered. 5. Hypokalemia Electrolyte repletion has been ordered. Recommend rechecking levels in the morning. 6. Acute kidney injury Improving. Likely prerenal in etiology and related to ischemic ATN in the setting of #1. Will continue current supportive measures as noted above. Nephrology is currently following. Will defer need for ongoing hemodialysis to nephrology. 7. History of obstructive sleep apnea The patient reports a history of noncompliance with the use of nocturnal Pap therapy. TIME: 45 minutes of critical care time, independent of procedures, was spent addressing the patient's septic shock, perforated viscus, acute respiratory failure, coronary artery disease, biventricular heart failure, paroxysmal atrial fibrillation, hypokalemia, acute kidney injury, review of all data and collaboration with the care team. ([id number]) Code Visit [id number]: [id number] Critical care first hour
--- NOTE | 2018-05-21 06:56 | CT_ITS ---
STUDY: CT ABDOMEN AND PELVIS WITH CONTRAST REASON FOR EXAM: Male, 62 years old. Abdominal pain. Refractory septic shock with increasing white blood count. History of bladder mass. RADIATION DOSAGE (If Supplied By Facility): CTDIvol = ( 33.49 ) mGy, DLP = ( 1975.01 ) mGycm TECHNIQUE: Transaxial images were obtained from the dome of the diaphragm to the symphysis pubis with oral contrast. Gastrografin 15mL Oral was administered. Sagittal and coronal images were reconstructed. Individualized dose optimization techniques were used for this CT. COMPARISON: Comparison is made with prior study dated May 17, 2018. FINDINGS: Since prior study, there is progressive infiltration in both lower lobes worse on the right side. Calcified granuloma in the posterior medial segment of the right lower lobe. Small bilateral pleural effusions. Coronary artery calcification. Cardiomegaly. A percutaneous drainage catheter is seen within the right upper quadrant and mid abdomen. Minimal amount of residual free intraperitoneal air. Small amount of fluid is seen in the perihepatic space. Normal liver. Increased attenuation is seen along the dependent portion of the gallbladder suggestive of either gallstones and/or sludge. Mild dilatation of the gallbladder lumen. Normal spleen. Normal pancreas. Normal bilateral adrenal glands. Normal right kidney. Normal left kidney. There is gastric dilatation due to air as well as contrast filled stomach. An orogastric tube is seen within the stomach. Normal small intestine. Diffuse circumferential wall thickening of the descending colon as well as transverse colon. This is suggestive of a colitis. There is also evidence of circumferential wall thickening of the left hemicolon. Increased markings are seen within the peritoneal fat. Oral contrast is seen within minimally dilated small bowel loops. An ostomy is seen in the left lower quadrant. There is diffuse atherosclerotic calcification of the abdominal aorta. Stable 3 cm abdominal aortic aneurysm.. Normal inferior vena cava. Normal retroperitoneum. A Maldonado catheter is seen within a decompressed urinary bladder. There is a thickening of the anterior wall of the urinary bladder. A catheter is seen within the pelvis. Surgical clips are seen in the region of the rectosigmoid colon. A central incision is seen in the lower anterior abdominal wall. There are diffuse degenerative changes of the visualized lumbar spine. 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 CT/Abdomen/Pel W ORAL Cont Only IMPRESSION: Since prior study, there is been progressive circumferential wall thickening of the colon suggestive of colitis. Increased markings in the peritoneal fat. Progressive infiltrates in the lower lobes with small bilateral pleural effusions. Minimal residual free air. Electronically Signed: Johnny Neil, at 10:39 EST , Service support ,
[2018-05-21] MEDS: CHLORHEXIDINE GLUC 2% CLOTH 1 EACH TOWELETTE TOPICAL (07:00)
--- NOTE | 2018-05-21 07:01 | PN_ITS ---
Subjective: The patient was seen and examined at the bedside this morning. Events from the last 24 hours have been reviewed. The patient remains afebrile, but is still requiring both Levophed and vasopressin to maintain hemodynamic stability. His Levophed requirement remains at 20 mcg. The patient underwent a left-sided triple-lumen catheter placement yesterday and had his right IJ triple-lumen catheter guidewire exchanged to a hemodialysis catheter. The patient then underwent hemodialysis per nephrology recommendations with 1 L of fluid removed. The patient's FiO2 requirement has been weaned down to 45% this morning. Unfortunately, the patient's white blood cell count continues to rise. The patient is now documented to be overall net +15 L for the admission. Potassium is low this morning at 3.4. In addition to the patient's broad antimicrobial coverage, he was placed on antifungal coverage yesterday as well. Objective: The patient's most recent lab work, culture data and imaging studies have all been personally reviewed. A transesophageal echocardiogram from August 2017 revealed evidence of a moderately severe global LV systolic dysfunction with an ejection fraction of 30%. There is also evidence of moderate global RV systolic dysfunction. There was moderate aortic valve stenosis. Infectious workup has largely been unrevealing to date, with the exception of Danya albicans isolated from the urine culture. General: Alert, No apparent distress, - - Remains intubated and mechanically ventilated. HEENT: Atraumatic, PERRLA, Normocephalic Oral: No Gingival or Mucosal Lesions/ Ulcerations, - - Endotracheal tube remains in place. Neck: Supple, No Nodes, Trachea Midline, - - Right-sided temporary hemodialysis catheter and left-sided triple-lumen in place Lungs: No rhonchi, No wheeze, No rales, Diminished Cardiovascular: Regular rate, Regular Rhythm, Normal S1, Normal S2 Abdomen: Soft, Hypoactive Bowel Sounds, - - Abdominal wound with retention sutures, ostomy and RICARDO drains Extremities: No clubbing, No cyanosis, Edema Skin: - - No significant change from previous. Musculoskeletal: No Tenderness to Palpation of Joints or Extremities Lymphatic: No Cervical, Supraclavicular, or Inguinal Adenopathy Neurological: Neuro grossly intact Vital Signs Temp Pulse Resp BP Pulse Ox 36.8 C 93 18 96/48 L 93 05/21/18 04:00 05/21/18 06:00 05/21/18 06:00 05/21/18 06:00 05/21/18 06:00 Oxygen Flow Rate (L/min) 60 Oxygen Delivery Method Mechanical Ventilator Weight: 264 lb 8.875 oz Body Mass Index (BMI) 29.9 Intake and Output for Last 24 Hours 05/19/18 05/20/18 05/21/18 23:59 23:59 23:59 Intake Total 3246.0 / 3246.0 5557.0 / 5557.0 783.5 / 783.5 Output Total 1375 / 1375 3265 / 3265 250 / 250 Balance 1871.0 / 1871.0 2292.0 / 2292.0 533.5 / 533.5 Labs (Last 48 Hours) 05/17/18 05/18/18 05/19/18 21:18 20:05 03:45 WBC RBC Hgb Hct MCV MCH MCHC RDW RDW Differential Plt Count MPV Neut % (Auto) Absolute Neuts (auto) 21.3 H Absolute Lymphs (auto) 0.46 L Total Counted 100 Neutrophils % (Manual) 50 Band Neutrophils % 36 H Lymphocytes % (Manual) 2 L Monocytes % (Manual) 6 Metamyelocytes % 4 H Myelocytes % 2 H Promyelocytes % Diff Path Review Reviewed Reviewed Reviewed Smudge Cells Toxic Granulation 2+ Platelet Estimate Plt Morphology Comment Polychromasia Hypochromasia Anisocytosis 2+ Microcytosis Macrocytosis 1+ Rouleaux PT INR APTT Sodium Potassium Chloride Carbon Dioxide Anion Gap BUN Creatinine Estim Creat Clear Calc Est GFR (MDRD) Af Amer Est GFR (MDRD) Non-Af BUN/Creatinine Ratio Glucose Calcium Phosphorus Magnesium Total Bilirubin AST ALT Alkaline Phosphatase Total Protein Albumin Globulin Albumin/Globulin Ratio Prealbumin Vancomycin Trough Random Vancomycin Hep Bs Antigen Hep Bs Antibody Hep B Core Total Ab 05/19/18 05/19/18 05/19/18 12:25 12:45 18:10 WBC RBC Hgb Hct MCV MCH MCHC RDW RDW Differential Plt Count MPV Neut % (Auto) Absolute Neuts (auto) Absolute Lymphs (auto) Total Counted Neutrophils % (Manual) Band Neutrophils % Lymphocytes % (Manual) Monocytes % (Manual) Metamyelocytes % Myelocytes % Promyelocytes % Diff Path Review Smudge Cells Toxic Granulation Platelet Estimate Plt Morphology Comment Polychromasia Hypochromasia Anisocytosis Microcytosis Macrocytosis Rouleaux PT INR APTT 95.3 H* 80.9 H Sodium Potassium Chloride Carbon Dioxide Anion Gap BUN Creatinine Estim Creat Clear Calc Est GFR (MDRD) Af Amer Est GFR (MDRD) Non-Af BUN/Creatinine Ratio Glucose Calcium Phosphorus Magnesium Total Bilirubin AST ALT Alkaline Phosphatase Total Protein Albumin Globulin Albumin/Globulin Ratio Prealbumin Vancomycin Trough 21.7 H Random Vancomycin Hep Bs Antigen Hep Bs Antibody Hep B Core Total Ab 05/20/18 05/20/18 05/20/18 00:30 05:25 05:25 WBC 30.6 H* RBC 2.93 L Hgb 10.1 L Hct 29.9 L MCV 102.0 H MCH 34.5 H MCHC 33.8 RDW 18.7 H RDW Differential 69.9 H Plt Count 428 MPV 12.0 Neut % (Auto) Not Reportable Absolute Neuts (auto) 27.8 H Absolute Lymphs (auto) 1.22 Total Counted 100 Neutrophils % (Manual) 85 H Band Neutrophils % 6 H Lymphocytes % (Manual) 4 L Monocytes % (Manual) 4 Metamyelocytes % 1 Myelocytes % Promyelocytes % Diff Path Review Reviewed Smudge Cells Toxic Granulation Platelet Estimate ADEQUATE Plt Morphology Comment LARGE Polychromasia RARE Hypochromasia 1+ Anisocytosis 1+ Microcytosis 1+ Macrocytosis Rouleaux PT 17.9 H INR 1.5 APTT 69.4 H Sodium Potassium Chloride Carbon Dioxide Anion Gap BUN Creatinine Estim Creat Clear Calc Est GFR (MDRD) Af Amer Est GFR (MDRD) Non-Af BUN/Creatinine Ratio Glucose Calcium Phosphorus Magnesium Total Bilirubin AST ALT Alkaline Phosphatase Total Protein Albumin Globulin Albumin/Globulin Ratio Prealbumin Vancomycin Trough Random Vancomycin Hep Bs Antigen Hep Bs Antibody Hep B Core Total Ab 05/20/18 05/20/18 05/20/18 05:25 05:25 05:25 WBC RBC Hgb Hct MCV MCH MCHC RDW RDW Differential Plt Count MPV Neut % (Auto) Absolute Neuts (auto) Absolute Lymphs (auto) Total Counted Neutrophils % (Manual) Band Neutrophils % Lymphocytes % (Manual) Monocytes % (Manual) Metamyelocytes % Myelocytes % Promyelocytes % Diff Path Review Smudge Cells Toxic Granulation Platelet Estimate Plt Morphology Comment Polychromasia Hypochromasia Anisocytosis Microcytosis Macrocytosis Rouleaux PT INR APTT Sodium 131 L Potassium 2.6 L* Chloride 98 Carbon Dioxide 20.0 L Anion Gap 13 BUN 60 H Creatinine 2.54 H Estim Creat Clear Calc 33.52 Est GFR (MDRD) Af Amer 33 L Est GFR (MDRD) Non-Af 28 L BUN/Creatinine Ratio 23.6 H Glucose 232 H Calcium 6.4 L* Phosphorus 4.9 Magnesium 2.9 H Total Bilirubin 1.40 H AST 113 H ALT 30 Alkaline Phosphatase 135 H Total Protein 4.6 L Albumin 1.2 L Globulin 3.4 Albumin/Globulin Ratio 0.4 L Prealbumin < 3.0 L Vancomycin Trough Random Vancomycin 15.0 Hep Bs Antigen Hep Bs Antibody Hep B Core Total Ab 05/20/18 05/20/18 05/20/18 06:50 11:55 19:00 WBC RBC Hgb Hct MCV MCH MCHC RDW RDW Differential Plt Count MPV Neut % (Auto) Absolute Neuts (auto) Absolute Lymphs (auto) Total Counted Neutrophils % (Manual) Band Neutrophils % Lymphocytes % (Manual) Monocytes % (Manual) Metamyelocytes % Myelocytes % Promyelocytes % Diff Path Review Smudge Cells Toxic Granulation Platelet Estimate Plt Morphology Comment Polychromasia Hypochromasia Anisocytosis Microcytosis Macrocytosis Rouleaux PT INR APTT 97.7 H* 75.3 H Sodium Potassium Chloride Carbon Dioxide Anion Gap BUN Creatinine Estim Creat Clear Calc Est GFR (MDRD) Af Amer Est GFR (MDRD) Non-Af BUN/Creatinine Ratio Glucose Calcium Phosphorus Magnesium Total Bilirubin AST ALT Alkaline Phosphatase Total Protein Albumin Globulin Albumin/Globulin Ratio Prealbumin Vancomycin Trough Random Vancomycin Hep Bs Antigen Pending Hep Bs Antibody Pending Hep B Core Total Ab Pending 05/20/18 05/21/18 05/21/18 19:05 01:00 04:10 WBC 37.7 H* RBC 2.88 L Hgb 10.0 L Hct 29.1 L MCV 101.0 H MCH 34.7 H MCHC 34.4 RDW 18.4 H RDW Differential 68.9 H Plt Count 347 MPV 11.5 Neut % (Auto) Not Reportable Absolute Neuts (auto) 34.3 H Absolute Lymphs (auto) 1.13 Total Counted 100 Neutrophils % (Manual) 62 Band Neutrophils % 21 H Lymphocytes % (Manual) 3 L Monocytes % (Manual) 6 Metamyelocytes % 3 H Myelocytes % 1 H Promyelocytes % 4 H Diff Path Review May foll Smudge Cells 2+ Toxic Granulation 1+ Platelet Estimate ADEQUATE Plt Morphology Comment Polychromasia Hypochromasia Anisocytosis 2+ Microcytosis Macrocytosis 1+ Rouleaux 1+ PT INR APTT 65.1 H 67.4 H Sodium Potassium Chloride Carbon Dioxide Anion Gap BUN Creatinine Estim Creat Clear Calc Est GFR (MDRD) Af Amer Est GFR (MDRD) Non-Af BUN/Creatinine Ratio Glucose Calcium Phosphorus Magnesium Total Bilirubin AST ALT Alkaline Phosphatase Total Protein Albumin Globulin Albumin/Globulin Ratio Prealbumin Vancomycin Trough Random Vancomycin Hep Bs Antigen Hep Bs Antibody Hep B Core Total Ab 05/21/18 05/21/18 05/21/18 04:10 06:20 06:20 WBC RBC Hgb Hct MCV MCH MCHC RDW RDW Differential Plt Count MPV Neut % (Auto) Absolute Neuts (auto) Absolute Lymphs (auto) Total Counted Neutrophils % (Manual) Band Neutrophils % Lymphocytes % (Manual) Monocytes % (Manual) Metamyelocytes % Myelocytes % Promyelocytes % Diff Path Review Smudge Cells Toxic Granulation Platelet Estimate Plt Morphology Comment Polychromasia Hypochromasia Anisocytosis Microcytosis Macrocytosis Rouleaux PT INR APTT 103.1 H* Sodium 134 L Potassium 3.4 L Chloride 101 Carbon Dioxide 22.0 Anion Gap BUN 45 H Creatinine 1.96 H Estim Creat Clear Calc 43.44 Est GFR (MDRD) Af Amer 45 L Est GFR (MDRD) Non-Af 37 L BUN/Creatinine Ratio 23.0 H Glucose 204 H Calcium 6.3 L* Phosphorus 3.9 Magnesium 2.7 H Total Bilirubin AST ALT Alkaline Phosphatase Total Protein Albumin 1.1 L Globulin Albumin/Globulin Ratio Prealbumin Vancomycin Trough Random Vancomycin Pending Hep Bs Antigen Hep Bs Antibody Hep B Core Total Ab Microbiology 05/20/18 09:35 Wound Drainage - Aerobic & Anaerobic Swabs Gram Stain - Final 05/17/18 10:25 Urine Catheter - Maldonado Urine Culture - Final Danya albicans 05/17/18 07:27 Blood Culture (Wb) - Anticubital Right Blood Culture - Preliminary No growth in 48 hours. 05/17/18 08:25 Blood Culture (Wb) - Central Line Blood Culture - Preliminary No growth in 48 hours. Clinical Impression(s) from Imaging Studies Abdomen/Pelvis CT 05/03/18 07:41 IMPRESSION: Large bladder mass as described causing a marked degree of bladder dilatation. Air is seen within the urinary bladder. This may be related to Maldonado catheter manipulation. If not, a colovesical fistula should be ruled out. Electronically Signed: Johnny Neil MD at 9:02 EST , Service support , Chest X-Ray 05/03/18 09:37 IMPRESSION: Mild cardiomegaly. Electronically Signed: Johnny Neil MD at 10:05 EST , Service support , Abdomen/Pelvis CT 05/04/18 07:00 IMPRESSION: Evaluation was performed to evaluate for a colovesical fistula. Please note that a study prior to injection of rectal contrast was not performed. This somewhat limits evaluation. There is hyperdense material in the bladder at time of prior study May 03, 2018 which most likely represented a hematoma. On today's examination again noted is gas as well as hyperdense material within the bladder. There is intimate association with a segment of the sigmoid colon with the urinary bladder. There is a small focus of gas within the bladder at this region. Findings would be concerning for a colovesical fistula. Correlate with urinalysis. Interval placement of a Maldonado catheter. The previously noted bladder hyperdense masslike lesion has significantly decreased in size. Likely representing a large hematoma. Recommend follow-up to ensure resolution. Diverticulosis is present. There is some thickening of the sigmoid colon with some stranding concerning for diverticulitis. Infrarenal abdominal aortic aneurysm. Decreasing right hydronephrosis. Evidence of prior granulomatous disease. Bilateral nephrolithiasis. Electronically Signed: Dawood Morrison, at 7:57 EST Tel , Service support , Chest X-Ray 05/10/18 05:55 IMPRESSION: Atelectasis and/or infiltrates at the lung bases worse on the left side with blunting of left costophrenic angle. Electronically Signed: Johnny Neil MD at 9:43 EST , Service support , Chest X-Ray 05/12/18 16:45 IMPRESSION: 1. Decreased bibasilar atelectasis. No organizing infiltrates seen. 2. Gaseous distention of bowel in the upper abdomen, incompletely visualized. 3. Mild cardiomegaly. Electronically Signed: Tunde Cole MD at 17:03 EST , Service support , Abdomen/Pelvis CT 05/13/18 10:28 IMPRESSION: Small bilateral pleural effusions with bibasilar infiltrates and/or atelectasis. Small amount of perihepatic as well as perisplenic fluid as well as fluid in the pelvis. Small amount of fluid in the Colic gutters. Postoperative changes in the region of the umbilicus there Distention of the ascending colon and transverse colon and descending colon down to the region of the anastomosis at the rectosigmoid junction. A Maldonado catheter seen within the urinary bladder. Electronically Signed: Johnny Neil MD at 13:48 EST , Service support , Chest X-Ray 05/13/18 14:18 IMPRESSION: The tip of the right internal jugular venous catheter is in the proximal portion of the superior vena cava. There is no evidence of pneumothorax. Stable appearance of the lungs. Electronically Signed: Johnny Neil MD at 15:52 EST , Service support , Chest X-Ray 05/13/18 19:24 IMPRESSION: Interval placement endotracheal and enteric tubes as above. at 1955 Reported and signed by: Jason Goins MD Electronically Signed: Jason Goins at 19:54 EST Tel , Service support , Chest X-Ray 05/16/18 09:45 IMPRESSION: Mild degree of increased markings at the lung bases. Free intraperitoneal air with the dilatation of the colon. Electronically Signed: Johnny Neil, at 14:24 EST , Service support , Abdomen CT 05/17/18 11:30 IMPRESSION: 1. Extensive free air and mild free fluid in the anterior abdomen, concerning for possible anastomotic leak. Open wound may be contributory. 2. Dilated small bowel with gradual transition in the pelvis, possibly due to adhesions. 3. Gas in decompressed bladder may be due to catheter placement or fistula. 4. Small pleural effusions. 5. A 3.2 cm infrarenal AAA. 6. Left femoral head collapse, likely secondary to avascular necrosis. Dr. Mayorga discussed the findings with Dr. Woo at 5:28 PM. N.B. : The above information has been verbally conveyed by Aleena Mayorga MD to Dr. Gerardo Woo MD, on 05/17/2018 17:29:57 (ET). Electronically Signed: Aleena Mayorga MD at 17:31 EST Tel , Service support , ADDENDUM: 05/17/18 8428 IMPRESSION: 1. Extensive free air and mild free fluid in the anterior abdomen, concerning for possible anastomotic leak. Open wound may be contributory. 2. Dilated small bowel with gradual transition in the pelvis, possibly due to adhesions. 3. Gas in decompressed bladder may be due to catheter placement or fistula. 4. Small pleural effusions. 5. A 3.2 cm infrarenal AAA. 6. Left femoral head collapse, likely secondary to avascular necrosis. Dr. Mayorga discussed the findings with Dr. Woo at 5:28 PM. N.B. : The above information has been verbally conveyed by Aleena Mayorga MD to Dr. Gerardo Woo MD, on 05/17/2018 17:29:57 (ET). Electronically Signed: Aleena Mayorga MD at 17:31 EST Tel , Service support , KUB X-Ray 05/17/18 22:56 IMPRESSION: NG tube terminates in the gastric antrum. Electronically Signed: Aleena Mayorga MD at 23:58 EST Tel , Service support , Abdomen CT 05/17/18 22:59 IMPRESSION: Large amount of free intraperitoneal air and moderate free fluid similar to previous. As noted on the prior study, this is more than is normally seen postoperatively and is concerning for bowel perforation or perhaps wound dehiscence. No extraluminal enteric contrast identified. However there is pneumatosis and wall thickening of the ascending colon with immediately adjacent foci of extraluminal air; suspicious for perforation here. Enteric contrast has not yet reached this loop of bowel. Slight interval worsening of bibasal atelectasis versus pneumonia. Several other chronic findings as above similar to prior. Individualized dose optimization techniques were used for this CT. at 0042 Reported and signed by: Jason Goins MD Electronically Signed: Jason Goins, at 0:40 EST Tel , Service support , ADDENDUM: 05/18/18 0052 IMPRESSION: Large amount of free intraperitoneal air and moderate free fluid similar to previous. As noted on the prior study, this is more than is normally seen postoperatively and is concerning for bowel perforation or perhaps wound dehiscence. No extraluminal enteric contrast identified. However there is pneumatosis and wall thickening of the ascending colon with immediately adjacent foci of extraluminal air; suspicious for perforation here. Enteric contrast has not yet reached this loop of bowel. Slight interval worsening of bibasal atelectasis versus pneumonia. Several other chronic findings as above similar to prior. Individualized dose optimization techniques were used for this CT. at 0042 Reported and signed by: Jason Goins MD N.B. : The above information has been verbally conveyed by Jason Goins to Yoly Gallo RN, on 05/18/2018 00:45:57 (ET). Electronically Signed: Jason Goins, at 0:40 EST Tel , Service support , Chest X-Ray 05/18/18 04:38 IMPRESSION: Compressive atelectasis in the right and left lung lower lobes. Small bilateral pleural effusions. Electronically Signed: Constanza Archer, at 7:53 EST Tel , Service support , Chest X-Ray 05/20/18 00:20 IMPRESSION: Compressive atelectasis in the right and left lung lower lobes. Small bilateral pleural effusions. Electronically Signed: Constanza Archer, at 0:52 EST Tel , Service support , Chest X-Ray 05/20/18 15:09 IMPRESSION: Endotracheal tube in a grossly satisfactory position. Cardiomegaly. Right pleural effusion, cannot exclude associated right basilar atelectasis and/or pneumonia. Pulmonary venous congestion with possible associated interstitial edema. Electronically Signed: Shelbi Peacock MD at 16:17 EST Tel , Service support , Chest X-Ray 05/20/18 15:55 IMPRESSION: Stable examination as detailed above. Electronically Signed: Shelbi Peacock MD at 16:47 EST Tel , Service support , Medical Necessity - Tobacco Use Smoking Status: Current every day smoker Tobacco Use: Cigarettes Assessment/Plan All Active Problems (Last Reviewed 05/04/18 @ 08:39 by Prasanth Pradhan MD) Gross hematuria (Acute) Overweight (Acute) MASOOD (obstructive sleep apnea) (Acute) Colovesical fistula (Acute) Large bowel anastomotic leak (Acute) Sepsis associated hypotension (Acute) Perforated abdominal viscus (Acute) Perforated viscus (Acute) Acute kidney injury (Acute) RECOMMENDATIONS: 1. Continue broad-spectrum antibiotics, per infectious diseases recomme ndations. 2. Continue vasopressor support as ordered. Wean as tolerated to maintain a mean arterial pressure at or above 65 mmHg. 3[address] Obt[address] repeat [address] abdomen/pelvis with p.o. contrast 4. Aggressive electrolyte repletion. 5. Continue TPN. Consider starting trickle tube feeds. 6. Continue heparin drip. 7. Continue appropriate ICU prophylaxis 8. Continue to wean FiO2 as tolerated to maintain an oxygen saturation at or above 90%. 9. Continue hemodialysis per nephrology recommendations. IMPRESSIONS: 1. Septic shock secondary to perforated viscus s/p exploratory laparotomy and repair of perforated jejunum The patient is currently on broad-spectrum antimicrobials. Infectious diseases is following. He remains on dual vasopressor support in an attempt to maintain hemodynamic stability. This will be continued in an attempt to maintain a mean arterial pressure at or above 65 mmHg. Cultures have been unrevealing to date. I recommended judicious use of supplemental IV fluids, given the patient's underlying cardiomyopathy and current volume overloaded state. TPN will be continued for nutritional support. Given the patient's rising white blood cell count, a repeat CT abdomen was obtained this morning. Given the colitis noted on abdominal imaging, I discussed the possibility of starting the patient on treatment for C. difficile with infectious diseases. 2. Acute respiratory failure The patient returns to the ICU following surgery on invasive mechanical ventilation. At this time, the patient's clinical state is far too tenuous to consider aggressive weaning from mechanical ventilatory support. Unfortunately, the patient will likely need some form of volume optimization in order to wean his FiO2. Nephrology is following to assist with volume optimization through hemodialysis. 3. Coronary artery disease/chronic systolic heart failure Continue current medical therapy. Continue to hold Lasix and beta-bravo. 4. Paroxysmal atrial fibrillation/chronic anticoagulation status The patient's anticoagulation was fully reversed in preparation for surgery. Given his tenuous clinical status, recommend continuing heparin drip as ordered. 5. Hypokalemia Electrolyte repletion has been ordered. Recommend rechecking levels in the morning. 6. Acute kidney injury Improving. Likely prerenal in etiology and related to ischemic ATN in the setting of #1. Will continue current supportive measures as noted above. Nephrology is currently following. Will defer need for ongoing hemodialysis to nephrology. 7. History of obstructive sleep apnea The patient reports a history of noncompliance with the use of nocturnal Pap therapy. TIME: 45 minutes of critical care time, independent of procedures, was spent addressing the patient's septic shock, perforated viscus, acute respiratory failure, coronary artery disease, biventricular heart failure, paroxysmal atrial fibrillation, hypokalemia, acute kidney injury, review of all data and collaboration with the care team. ([id number]) Code Visit [id number]: [id number] Critical care first hour
[2018-05-21 07:15] LABS: Vancomycin, Random Level 19.6 ug/mL (0.0-15.0)
--- NOTE | 2018-05-21 08:16 | PN_ITS ---
Patient Problems: Active and Suspected Problems (Last Reviewed 05/04/18 @ 08:39 by Prasanth Pradhan MD) Gross hematuria (Acute) Overweight (Acute) MASOOD (obstructive sleep apnea) (Acute) non-compliant with CPAP Peripheral arterial disease (Suspected) Colovesical fistula (Acute) Large bowel anastomotic leak (Acute) Sepsis associated hypotension (Acute) Perforated abdominal viscus (Acute) Perforated viscus (Acute) Acute kidney injury (Acute) Subjective: Patient was seen and examined. Remains on 2 pressors. Heparin drip turned off briefly during the night. He had a tunneled catheter out in and was started on dialysis yesterday. Urine output was 2065 mls yesterday. Dialysis pulled out 1000 mls yesterday. No other events overnight. Objective: Physical exam: General: Alert, Oriented x3, Cooperative, - - intubated, on mechanical ventilator, appears comfortable HEENT: Atraumatic, PERRLA, EOMI, Normocephalic Neck: Supple, No JVD, Negative Carotid Bruits Lungs: Normal air movement, Diminished - no rhonchi heard Cardiovascular: Regular rate, Regular Rhythm, Normal S1, Normal S2, No murmurs Abdomen: Bowel Sounds Present - and normal in all 4 quadrants, Soft, Non- Distended, Tender - generalised without guarding and RBT, - - midline dressing is intact, LLQ colostomy appears empty with air and minimal serosanguinous pink fluid, RICARDO drains have serosanguinous fluid Extremities: Edema - +3-4 pitting, non-tender edema Skin: - - weeping of serosanguinous fluid from bilateral legs Musculoskeletal: No Tenderness to Palpation of Joints or Extremities Lymphatic: No Cervical, Supraclavicular, or Inguinal Adenopathy Neurological: Cranial nerves II-XII grossly intact Psych/Mental Status: Normal Affect, Appropriate Vitals/I&O's: Vital Signs Temp Pulse Resp BP Pulse Ox 98.3 F 90 16 91/47 L 93 05/21/18 04:00 05/21/18 07:00 05/21/18 07:00 05/21/18 07:00 05/21/18 07:00 Oxygen Flow Rate (L/min) 60 Oxygen Delivery Method Mechanical Ventilator Weight: 120 kg Body Mass Index (BMI) 29.9 Intake and Output for Last 24 Hours 05/19/18 05/20/18 05/21/18 23:59 23:59 23:59 Intake Total 3246.0 / 3246.0 5557.0 / 5557.0 783.5 / 783.5 Output Total 1375 / 1375 3265 / 3265 250 / 250 Balance 1871.0 / 1871.0 2292.0 / 2292.0 533.5 / 533.5 Microbiology Past 72 Hours 05/20/18 09:35 Wound Drainage - Aerobic & Anaerobic Swabs Gram Stain - Final 05/17/18 10:25 Urine Catheter - Maldonado Urine Culture - Final Michelet albicans 05/17/18 07:27 Blood Culture (Wb) - Anticubital Right Blood Culture - Preliminary No growth in 48 hours. 05/17/18 08:25 Blood Culture (Wb) - Central Line Blood Culture - Preliminary No growth in 48 hours. 05/12/18 17:05 Blood Culture (Wb) - Anticubital Left Blood Culture - Final No growth in 5 days. 05/12/18 17:10 Blood Culture (Wb) - Left Hand Blood Culture - Final No growth in 5 days. Laboratory Results 05/17/18 21:18: Diff Path Review Reviewed 05/18/18 20:05: Diff Path Review Reviewed 05/19/18 03:45: Diff Path Review Reviewed 05/20/18 05:25: Diff Path Review Reviewed 05/20/18 11:55: APTT 75.3 H 05/20/18 19:00: Hep Bs Antigen Pending, Hep Bs Antibody Pending, Hep B Core Total Ab Pending 05/20/18 19:05: APTT 65.1 H 05/21/18 01:00: APTT 67.4 H 05/21/18 04:10: WBC 37.7 H*, RBC 2.88 L, Hgb 10.0 L, Hct 29.1 L, MCV 101.0 H, MCH 34.7 H, MCHC 34.4, RDW 18.4 H, RDW Differential 68.9 H, Plt Count 347, MPV 11.5, Neut % (Auto) Not Reportable, Absolute Neuts (auto) 34.3 H, Absolute Lymphs (auto) 1.13, Total Counted 100, Neutrophils % (Manual) 62, Band Neutrophils % 21 H, Lymphocytes % (Manual) 3 L, Monocytes % (Manual) 6, Metamyelocytes % 3 H, Myelocytes % 1 H, Promyelocytes % 4 H, Diff Path Review May foll, Smudge Cells 2+, Toxic Granulation 1+, Platelet Estimate ADEQUATE, Anisocytosis 2+, Macrocytosis 1+, Rouleaux 1+ 05/21/18 04:10: Sodium 134 L, Potassium 3.4 L, Chloride 101, Carbon Dioxide 22.0, BUN 45 H, Creatinine 1.96 H, Estim Creat Clear Calc 43.44, Est GFR (MDRD) Af Amer 45 L, Est GFR (MDRD) Non-Af 37 L, BUN/Creatinine Ratio 23.0 H, Glucose 204 H, Calcium 6.3 L*, Phosphorus 3.9, Magnesium 2.7 H, Albumin 1.1 L 05/21/18 06:20: Random Vancomycin 19.6 H 05/21/18 06:20: APTT 103.1 H* Current Medications Albuterol/Ipratropium (Duoneb) 3 ml INHALATION Q4H.RT PRN PRN Reason: WHEEZING Last Admin: 05/18/18 22:15 Dose: 3 ml Atorvastatin Calcium (Lipitor) 40 mg NG HS [facility] Last Admin: 05/20/18 23:08 Dose: 40 mg Bisacodyl (Dulcolax) 5 mg PO DAILY PRN PRN PRN Reason: Constipation Calamine/Phenol (Calmoseptine Ointment) 1 applic TOPICAL BID [facility]; Protocol Last Admin: 05/20/18 23:08 Dose: 1 applicatio Chlorhexidine Gluconate () 15 ml PO BID [facility] Last Admin: 05/20/18 23:08 Dose: 15 ml Chlorhexidine Gluconate () 1 each TOPICAL DAILY [facility] Last Admin: 05/20/18 03:09 Dose: 1 each Docusate Sodium (Colace Syrup) 100 mg NG BID [facility] Last Admin: 05/20/18 23:09 Dose: 100 mg Heparin Sodium (Porcine) (Heparin Na) 0 unit IV UD PRN; Protocol Heparin Sodium (Porcine) () 2,500 units IV UD PRN PRN Reason: HEPARIN FLUSH Vancomycin IV Pharmacy to Dose (1 ea/ Sodium Chloride) 500 mls @ 250 mls/hr IV PRN PRN; Protocol PRN Reason: Rx to Dose Vasopressin 40 units/ Sodium (Chloride) 52 mls @ 3.12 mls/hr IV .[id number] [facility] Stop: 05/21/18 19:59 Last Admin: 05/21/18 02:55 Dose: 3.12 mls/hr Pantoprazole Sodium 40 mg/ (Sodium Chloride) 110 mls @ 330 mls/hr IV Q24 [facility] Last Admin: 05/20/18 09:55 Dose: 330 mls/hr Fentanyl () 100 mls @ 5 mls/hr IV .Q20H [facility]; Protocol Last Admin: 05/21/18 06:40 Dose: 5 mls/hr Heparin Sodium/Dextrose () 25,000 units in 250 mls @ 16 mls/hr IV .[id number] [facility]; Protocol Last Admin: 05/20/18 15:15 Dose: 16 mls/hr Norepinephrine Bitartrate 8 mg (/ Dextrose) 258 mls @ 9.68 mls/hr IV .[id number] [facility] Last Admin: 05/21/18 01:27 Dose: 9.68 mls/hr Multivitamins 10 ml/ Chromium/Copper/Manganese/Seleni/Zn 1 ml/ Folic Acid 1 mg/ Potassium Chloride 40 meq/ Amino Acids/Electrolytes 2,031.2 mls @ 42 mls/hr IV .Q24H [facility] Stop: 05/21/18 15:47 Last Admin: 05/20/18 17:39 Dose: 42 mls/hr Meropenem 500 mg/ Sodium (Chloride) 60 mls @ 100 mls/hr IV Q24H [facility] Last Admin: 05/20/18 23:07 Dose: 100 mls/hr Calcium Gluconate 2 gm/ (Dextrose) 120 mls @ 60 mls/hr IV X1 ONE Stop: 05/21/18 09:59 Potassium Chloride 40 meq/ (Sodium Chloride) 120 mls @ 100 mls/hr IV BOLUS X1 ONE Stop: 05/21/18 09:11 Vasopressin 20 units/ Sodium (Chloride) 25 mls @ 3 mls/hr IV .[id number] [facility] Magnesium Hydroxide (Milk Of Magnesia) 30 ml NG DAILY PRN PRN Reason: Constipation Magnesium Oxide (Mag-Ox 400) 400 mg NG DAILY [facility] Last Admin: 05/20/18 09:55 Dose: 400 mg Ondansetron HCl (Zofran) 4 mg IV Q6H PRN PRN PRN Reason: Nausea Last Admin: 05/16/18 04:56 Dose: 4 mg Sodium Chloride () 5 - 15 ml IV UD PRN PRN Reason: SALINE FLUSH Last Admin: 05/21/18 01:05 Dose: 10 ml Sodium Hypochlorite (Dakins Solution 0.25% (1/2 Strength)) 1 applic TOPICAL BID [facility]; Protocol Last Admin: 05/20/18 23:09 Dose: 1 applicatio Medical Necessity - Tobacco Use Smoking Status: Current every day smoker Tobacco Use: Cigarettes Assessment/Plan All Active Problems (Last Reviewed 05/04/18 @ 08:39 by Prasanth Pradhan MD) Gross hematuria (Acute) Overweight (Acute) MASOOD (obstructive sleep apnea) (Acute) Colovesical fistula (Acute) Large bowel anastomotic leak (Acute) Sepsis associated hypotension (Acute) Perforated abdominal viscus (Acute) Perforated viscus (Acute) Acute kidney injury (Acute) 62-year-old male with past medical history of hypertension, CAD, likely ischemic cardiomyopathy, EF 30%, nicotine dependence who was admitted on 05/02/[address] abdomen and pelvis without contrast showed 8.7 x 8.3 single large mass in the base of the bladder with marked urinary bladder distention air-fluid level suspicious of colovesical fistula. He underwent cystoscopy evacuation of blood clots, laser of a very large bladder stone, evacuation of bladder stone fragments, cystolitholapaxy on 05/03/2018. He subsequently sigmoid colon resection and repair of colovesical fistula on 05/07/2018. His post-op care was complicated with anastomotic leak and patient had exploratory laparotomy and creation of the end colostomy on 05/13/2018. Patient had exploratory laparotomy with jejunal repair on 05/17/2018. He remains in ICU, intubated, mechanical ventilator, on 2 pressors. 1. Septic shock secondary to anastomotic leak/intra-abdominal abscess, not much change, WBC is getting worse, 37.7 from 30.6 yesterday, Repeat CT abdomen is pending, remains on 2 pressors s/p exploratory laparotomy on 05/17/18 Blood cultures showed no growth in 48 hours, urine cultures show michelet On IV meropenem and vancomycin; ID consulted Will continue to follow 2. Hypokalemia, K 3.4, replaced 3. OVI likely secondary to ischemic ATN, creatinine is improved to 1.96 from 2.54 from yesterday Urine output surprisingly picked up yesterday -1065 mls, status post right-sided dialysis tunneled catheter, started on [employer] yesterday, nephrology following 4. Candiduria, status post 1 dose of 400mg fluconazole by ID, will continue to monitor 5. Hyperglycemia secondary to TPN, will start patient on low-dose insulin sliding scale with Accu-Cheks 6. Left lower extremity DVT, developed after surgery, on IV heparin drip, continue per protocol 7. Colovesical fistula status post cystoscopy, evacuation of blood clots, laser of a very large bladder stone, evacuation of bladder stone fragments, cystolitholapaxy. colectomy, s/p hardwick pouch, Remains NPO follow general surgery recommendations, wound nurse following 8. s/p exploratory laparotomy on 05/17/18, pain is fairly controlled, on fentanyl drip, NG tube in situ, will follow up with general surgery recommendation 9. Acute hypoxic respiratory failure, remains on ventilatory support 10. CAD/ischemic cardiomyopathy, EF 30% 11. Hypertension, now hypotensive 12. A. fib with RVR, secondary to septic shock 13. MASOOD, noncompliant with CPAP 14. DVT PPx- On heparin drip Code Visit Inpatient E&M: 60680 Subs Hosp L3
--- NOTE | 2018-05-21 08:56 | PN.SURG_ITS ---
Patient Problems: Active and Suspected Problems (Last Reviewed 05/04/18 @ 08:39 by Prasanth Pradhan MD) Gross hematuria (Acute) Overweight (Acute) MASOOD (obstructive sleep apnea) (Acute) non-compliant with CPAP Peripheral arterial disease (Suspected) Colovesical fistula (Acute) Large bowel anastomotic leak (Acute) Sepsis associated hypotension (Acute) Perforated abdominal viscus (Acute) Perforated viscus (Acute) Acute kidney injury (Acute) Subjective: Patient evaluated intubated resting in bed. Patient grimaces with deep abdominal palpation. He has had 200 cc output from the NG tube. He has serous liquid within his ostomy bag with air bubbles. He had dialysis over night with 1000 mL drawn off. - Physical Exam General: Alert, Cooperative Abdomen: Soft, Hypoactive Bowel Sounds, Distended - slightly, - - Stoma- pink. yellowish/serous fluid noted within the ostomy bag. RICARDO drains with SA fluid. Incision held with retention sutures open between the retention sutures. Minimal amount of bleeding noted at the superior aspect of the incision. Open incision is being packed with Dakin dampened gauze. Moderate amount of necrosis in the inferior aspect of the incision. Vital Signs Temp Pulse Resp BP Pulse Ox 98.3 F 90 16 91/47 L 93 05/21/18 04:00 05/21/18 07:00 05/21/18 07:00 05/21/18 07:00 05/21/18 07:00 Oxygen Flow Rate (L/min) 60 Oxygen Delivery Method Mechanical Ventilator Weight: 264 lb 8.875 oz Body Mass Index (BMI) 29.9 Intake and Output for Last 24 Hours 05/19/18 05/20/18 05/21/18 23:59 23:59 23:59 Intake Total 3246.0 / 3246.0 5557.0 / 5557.0 783.5 / 783.5 Output Total 1375 / 1375 3265 / 3265 250 / 250 Balance 1871.0 / 1871.0 2292.0 / 2292.0 533.5 / 533.5 Microbiology Past 72 Hours 05/20/18 09:35 Gram Stain - Final Wound Drainage - Aerobic & Anaerobic Swabs 05/17/18 10:25 Urine Culture - Final Urine Catheter - Maldonado Danya albicans 05/17/18 07:27 Blood Culture - Preliminary Blood Culture (Wb) - Anticubital Right No growth in 48 hours. 05/17/18 08:25 Blood Culture - Preliminary Blood Culture (Wb) - Central Line No growth in 48 hours. 05/12/18 17:05 Blood Culture - Final Blood Culture (Wb) - Anticubital Left No growth in 5 days. 05/12/18 17:10 Blood Culture - Final Blood Culture (Wb) - Left Hand No growth in 5 days. Laboratory Tests Past 24 Hrs 05/17/18 05/18/18 05/19/18 21:18 20:05 03:45 WBC RBC Hgb Hct MCV MCH MCHC RDW RDW Differential Plt Count MPV Neut % (Auto) Absolute Neuts (auto) Absolute Lymphs (auto) Total Counted Neutrophils % (Manual) Band Neutrophils % Lymphocytes % (Manual) Monocytes % (Manual) Metamyelocytes % Myelocytes % Promyelocytes % Diff Path Review Reviewed Reviewed Reviewed Smudge Cells Toxic Granulation Platelet Estimate Anisocytosis Macrocytosis Rouleaux APTT Sodium Potassium Chloride Carbon Dioxide BUN Creatinine Estim Creat Clear Calc Est GFR (MDRD) Af Amer Est GFR (MDRD) Non-Af BUN/Creatinine Ratio Glucose Calcium Phosphorus Magnesium Albumin Random Vancomycin Hep Bs Antigen Hep Bs Antibody Hep B Core Total Ab 05/20/18 05/20/18 05/20/18 05:25 11:55 19:00 WBC RBC Hgb Hct MCV MCH MCHC RDW RDW Differential Plt Count MPV Neut % (Auto) Absolute Neuts (auto) Absolute Lymphs (auto) Total Counted Neutrophils % (Manual) Band Neutrophils % Lymphocytes % (Manual) Monocytes % (Manual) Metamyelocytes % Myelocytes % Promyelocytes % Diff Path Review Reviewed Smudge Cells Toxic Granulation Platelet Estimate Anisocytosis Macrocytosis Rouleaux APTT 75.3 H Sodium Potassium Chloride Carbon Dioxide BUN Creatinine Estim Creat Clear Calc Est GFR (MDRD) Af Amer Est GFR (MDRD) Non-Af BUN/Creatinine Ratio Glucose Calcium Phosphorus Magnesium Albumin Random Vancomycin Hep Bs Antigen Pending Hep Bs Antibody Pending Hep B Core Total Ab Pending 05/20/18 05/21/18 05/21/18 19:05 01:00 04:10 WBC 37.7 H* RBC 2.88 L Hgb 10.0 L Hct 29.1 L MCV 101.0 H MCH 34.7 H MCHC 34.4 RDW 18.4 H RDW Differential 68.9 H Plt Count 347 MPV 11.5 Neut % (Auto) Not Reportable Absolute Neuts (auto) 34.3 H Absolute Lymphs (auto) 1.13 Total Counted 100 Neutrophils % (Manual) 62 Band Neutrophils % 21 H Lymphocytes % (Manual) 3 L Monocytes % (Manual) 6 Metamyelocytes % 3 H Myelocytes % 1 H Promyelocytes % 4 H Diff Path Review May foll Smudge Cells 2+ Toxic Granulation 1+ Platelet Estimate ADEQUATE Anisocytosis 2+ Macrocytosis 1+ Rouleaux 1+ APTT 65.1 H 67.4 H Sodium Potassium Chloride Carbon Dioxide BUN Creatinine Estim Creat Clear Calc Est GFR (MDRD) Af Amer Est GFR (MDRD) Non-Af BUN/Creatinine Ratio Glucose Calcium Phosphorus Magnesium Albumin Random Vancomycin Hep Bs Antigen Hep Bs Antibody Hep B Core Total Ab 05/21/18 05/21/18 05/21/18 04:10 06:20 06:20 WBC RBC Hgb Hct MCV MCH MCHC RDW RDW Differential Plt Count MPV Neut % (Auto) Absolute Neuts (auto) Absolute Lymphs (auto) Total Counted Neutrophils % (Manual) Band Neutrophils % Lymphocytes % (Manual) Monocytes % (Manual) Metamyelocytes % Myelocytes % Promyelocytes % Diff Path Review Smudge Cells Toxic Granulation Platelet Estimate Anisocytosis Macrocytosis Rouleaux APTT 103.1 H* Sodium 134 L Potassium 3.4 L Chloride 101 Carbon Dioxide 22.0 BUN 45 H Creatinine 1.96 H Estim Creat Clear Calc 43.44 Est GFR (MDRD) Af Amer 45 L Est GFR (MDRD) Non-Af 37 L BUN/Creatinine Ratio 23.0 H Glucose 204 H Calcium 6.3 L* Phosphorus 3.9 Magnesium 2.7 H Albumin 1.1 L Random Vancomycin 19.6 H Hep Bs Antigen Hep Bs Antibody Hep B Core Total Ab Medical Necessity - Tobacco Use Smoking Status: Current every day smoker Tobacco Use: Cigarettes Assessment/Plan All Active Problems (Last Reviewed 05/04/18 @ 08:39 by Prasanth Pradhan MD) Gross hematuria (Acute) Overweight (Acute) MASOOD (obstructive sleep apnea) (Acute) Colovesical fistula (Acute) Large bowel anastomotic leak (Acute) Sepsis associated hypotension (Acute) Perforated abdominal viscus (Acute) Perforated viscus (Acute) Acute kidney injury (Acute) I am following this patient with Dr. Pradhan S/p sigmoid colectomy and cystoscopy for colovesical fistula in conjunction with Eddy 05/07. Anastomotic leak. S/p urgent exploratory laparotomy with end colostomy creation 05/13. S/p urgent exploratory laparotomy with repair of perforated jejunum. Labs reviewed. WBC elevated Repeat CT scan of the abdomen/pelvis being obtained today Discussed patient with Dr. Pradhan We will continue to closely monitor this patient Code Visit Inpatient E&M: 91806 [facility] Hosp L1 - NO CHARGE
[2018-05-21] MEDS: Chlorhexidine 15 ML PO ×2 (10:22→21:39)
[2018-05-21] MEDS: Menthol/Lanolin/Calamine/Znox 113 GM Tube 1 APPLIC TOPICAL ×2 (10:23→21:39)
[2018-05-21] MEDS: Docusate Sodium 100 MG/10 ML UDC NG ×2 (10:24→21:38)
[2018-05-21] MEDS: Magnesium Oxide 400 MG Tablet NG (10:25)
[2018-05-21 10:32] LABS: Pathologist Review Reviewed
--- NOTE | 2018-05-21 11:00 | PCM.PN.ID ---
Patient Problems: Active and Suspected Problems (Last Reviewed 05/04/18 @ 08:39 by Prasanth Pradhan MD) Gross hematuria (Acute) Overweight (Acute) MASOOD (obstructive sleep apnea) (Acute) non-compliant with CPAP Peripheral arterial disease (Suspected) Colovesical fistula (Acute) Large bowel anastomotic leak (Acute) Sepsis associated hypotension (Acute) Perforated abdominal viscus (Acute) Perforated viscus (Acute) Acute kidney injury (Acute) Subjective: Abd pain stable, no fever, CT done this AM - Physical Exam General: Cooperative, No apparent distress Lungs: Clear to auscultation, Diminished Cardiovascular: Tachycardic Abdomen: Distended, Tender - mild Skin: No rashes Vital Signs Temp Pulse Resp BP Pulse Ox 97.5 F L 101 H 24 H 97/54 L 90 05/21/18 08:00 05/21/18 10:20 05/21/18 10:20 05/21/18 08:00 05/21/18 10:20 Oxygen Flow Rate (L/min) 60 Oxygen Delivery Method Mechanical Ventilator Weight: 120 kg Body Mass Index (BMI) 29.9 Intake and Output for Last 24 Hours 05/19/18 05/20/18 05/21/18 23:59 23:59 23:59 Intake Total 3246.0 / 3246.0 5557.0 / 5557.0 783.5 / 783.5 Output Total 1375 / 1375 3265 / 3265 250 / 250 Balance 1871.0 / 1871.0 2292.0 / 2292.0 533.5 / 533.5 Microbiology Past 72 Hours 05/20/18 09:35 Gram Stain - Final Wound Drainage - Aerobic & Anaerobic Swabs Wound Culture - Preliminary Gram positive organism Yeast Like Organism 05/17/18 10:25 Urine Culture - Final Urine Catheter - Maldonado Danya albicans 05/17/18 07:27 Blood Culture - Preliminary Blood Culture (Wb) - Anticubital Right No growth in 48 hours. 05/17/18 08:25 Blood Culture - Preliminary Blood Culture (Wb) - Central Line No growth in 48 hours. 05/12/18 17:05 Blood Culture - Final Blood Culture (Wb) - Anticubital Left No growth in 5 days. 05/12/18 17:10 Blood Culture - Final Blood Culture (Wb) - Left Hand No growth in 5 days. Laboratory Tests Past 24 Hrs 05/17/18 05/18/18 05/19/18 21:18 20:05 03:45 WBC RBC Hgb Hct MCV MCH MCHC RDW RDW Differential Plt Count MPV Neut % (Auto) Absolute Neuts (auto) Absolute Lymphs (auto) Total Counted Neutrophils % (Manual) Band Neutrophils % Lymphocytes % (Manual) Monocytes % (Manual) Metamyelocytes % Myelocytes % Promyelocytes % Diff Path Review Reviewed Reviewed Reviewed Smudge Cells Toxic Granulation Platelet Estimate Anisocytosis Macrocytosis Rouleaux APTT Sodium Potassium Chloride Carbon Dioxide BUN Creatinine Estim Creat Clear Calc Est GFR (MDRD) Af Amer Est GFR (MDRD) Non-Af BUN/Creatinine Ratio Glucose Calcium Phosphorus Magnesium Albumin Random Vancomycin Hep Bs Antigen Hep Bs Antibody Hep B Core Total Ab 05/20/18 05/20/18 05/20/18 05:25 11:55 19:00 WBC RBC Hgb Hct MCV MCH MCHC RDW RDW Differential Plt Count MPV Neut % (Auto) Absolute Neuts (auto) Absolute Lymphs (auto) Total Counted Neutrophils % (Manual) Band Neutrophils % Lymphocytes % (Manual) Monocytes % (Manual) Metamyelocytes % Myelocytes % Promyelocytes % Diff Path Review Reviewed Smudge Cells Toxic Granulation Platelet Estimate Anisocytosis Macrocytosis Rouleaux APTT 75.3 H Sodium Potassium Chloride Carbon Dioxide BUN Creatinine Estim Creat Clear Calc Est GFR (MDRD) Af Amer Est GFR (MDRD) Non-Af BUN/Creatinine Ratio Glucose Calcium Phosphorus Magnesium Albumin Random Vancomycin Hep Bs Antigen Pending Hep Bs Antibody Pending Hep B Core Total Ab Pending 05/20/18 05/21/18 05/21/18 19:05 01:00 04:10 WBC 37.7 H* RBC 2.88 L Hgb 10.0 L Hct 29.1 L MCV 101.0 H MCH 34.7 H MCHC 34.4 RDW 18.4 H RDW Differential 68.9 H Plt Count 347 MPV 11.5 Neut % (Auto) Not Reportable Absolute Neuts (auto) 34.3 H Absolute Lymphs (auto) 1.13 Total Counted 100 Neutrophils % (Manual) 62 Band Neutrophils % 21 H Lymphocytes % (Manual) 3 L Monocytes % (Manual) 6 Metamyelocytes % 3 H Myelocytes % 1 H Promyelocytes % 4 H Diff Path Review Reviewed Smudge Cells 2+ Toxic Granulation 1+ Platelet Estimate ADEQUATE Anisocytosis 2+ Macrocytosis 1+ Rouleaux 1+ APTT 65.1 H 67.4 H Sodium Potassium Chloride Carbon Dioxide BUN Creatinine Estim Creat Clear Calc Est GFR (MDRD) Af Amer Est GFR (MDRD) Non-Af BUN/Creatinine Ratio Glucose Calcium Phosphorus Magnesium Albumin Random Vancomycin Hep Bs Antigen Hep Bs Antibody Hep B Core Total Ab 05/21/18 05/21/18 05/21/18 04:10 06:20 06:20 WBC RBC Hgb Hct MCV MCH MCHC RDW RDW Differential Plt Count MPV Neut % (Auto) Absolute Neuts (auto) Absolute Lymphs (auto) Total Counted Neutrophils % (Manual) Band Neutrophils % Lymphocytes % (Manual) Monocytes % (Manual) Metamyelocytes % Myelocytes % Promyelocytes % Diff Path Review Smudge Cells Toxic Granulation Platelet Estimate Anisocytosis Macrocytosis Rouleaux APTT 103.1 H* Sodium 134 L Potassium 3.4 L Chloride 101 Carbon Dioxide 22.0 BUN 45 H Creatinine 1.96 H Estim Creat Clear Calc 43.44 Est GFR (MDRD) Af Amer 45 L Est GFR (MDRD) Non-Af 37 L BUN/Creatinine Ratio 23.0 H Glucose 204 H Calcium 6.3 L* Phosphorus 3.9 Magnesium 2.7 H Albumin 1.1 L Random Vancomycin 19.6 H Hep Bs Antigen Hep Bs Antibody Hep B Core Total Ab Medical Necessity - Tobacco Use Smoking Status: Current every day smoker Tobacco Use: Cigarettes Route of nutrition/ use of supplements: [] Nutritional Intake: [] IV Site: [] Maldonado Catheter: [] - Assessment/Plan Antibiotics: [] Assessment/Plan: [] Active and Suspected Problems (Last Reviewed 05/04/18 @ 08:39 by Prasanth Pradhan MD) Gross hematuria (Acute) Overweight (Acute) MASOOD (obstructive sleep apnea) (Acute) non-compliant with CPAP Peripheral arterial disease (Suspected) Colovesical fistula (Acute) Large bowel anastomotic leak (Acute) Sepsis associated hypotension (Acute) Septic shock with recent abd surgeries for colovesicular fistula on 05/03 and anastamotic leak on 05/13 and 05/18. On vanc/meropenem. Now with rising wbc, Cr, and worsened pressor requirements. Had some danya in urine. 05/20 added fluconazole. Now on HD. CT done this AM, showed worsened colitis. Will add empiric po vanc and iv flagyl for cdiff coverage Will follow, d/w Dr. Woo
--- NOTE | 2018-05-21 11:46 | PCM.PN.REN ---
Patient Problems: Active and Suspected Problems (Last Reviewed 05/04/18 @ 08:39 by Prasanth Pradhan MD) Gross hematuria (Acute) Overweight (Acute) MASOOD (obstructive sleep apnea) (Acute) non-compliant with CPAP Peripheral arterial disease (Suspected) Colovesical fistula (Acute) Large bowel anastomotic leak (Acute) Sepsis associated hypotension (Acute) Perforated abdominal viscus (Acute) Perforated viscus (Acute) Acute kidney injury (Acute) Subjective: events noted WBC is higher, CT abd with contrast now has colitis being started on C Diff treatment pressor requirements somewhat better ? urine output - Physical Exam HEENT: Atraumatic, PERRLA, EOMI, Normocephalic Neck: Supple, No JVD, Negative Carotid Bruits Lungs: Clear to auscultation, Normal air movement Cardiovascular: Regular rate, No murmurs Abdomen: Bowel Sounds Present, Soft, Non Tender Extremities: Capillary Refill Less than 3 Seconds, Edema Skin: No rashes, No breakdown Musculoskeletal: No Tenderness to Palpation of Joints or Extremities Vital Signs Temp Pulse Resp BP Pulse Ox 97.5 F L 101 H 24 H 97/54 L 90 05/21/18 08:00 05/21/18 10:20 05/21/18 10:20 05/21/18 08:00 05/21/18 10:20 Oxygen Flow Rate (L/min) 60 Oxygen Delivery Method Mechanical Ventilator Weight: 120 kg Body Mass Index (BMI) 29.9 Intake and Output for Last 24 Hours 05/19/18 05/20/18 05/21/18 23:59 23:59 23:59 Intake Total 3246.0 / 3246.0 5557.0 / 5557.0 783.5 / 783.5 Output Total 1375 / 1375 3265 / 3265 250 / 250 Balance 1871.0 / 1871.0 2292.0 / 2292.0 533.5 / 533.5 Microbiology Past 72 Hours 05/20/18 09:35 Gram Stain - Final Wound Drainage - Aerobic & Anaerobic Swabs Wound Culture - Preliminary Gram positive organism Yeast Like Organism 05/17/18 10:25 Urine Culture - Final Urine Catheter - Maldonado Danya albicans 05/17/18 07:27 Blood Culture - Preliminary Blood Culture (Wb) - Anticubital Right No growth in 48 hours. 05/17/18 08:25 Blood Culture - Preliminary Blood Culture (Wb) - Central Line No growth in 48 hours. 05/12/18 17:05 Blood Culture - Final Blood Culture (Wb) - Anticubital Left No growth in 5 days. 05/12/18 17:10 Blood Culture - Final Blood Culture (Wb) - Left Hand No growth in 5 days. Laboratory Tests Past 24 Hrs 05/17/18 05/18/18 05/19/18 21:18 20:05 03:45 WBC RBC Hgb Hct MCV MCH MCHC RDW RDW Differential Plt Count MPV Neut % (Auto) Absolute Neuts (auto) Absolute Lymphs (auto) Total Counted Neutrophils % (Manual) Band Neutrophils % Lymphocytes % (Manual) Monocytes % (Manual) Metamyelocytes % Myelocytes % Promyelocytes % Diff Path Review Reviewed Reviewed Reviewed Smudge Cells Toxic Granulation Platelet Estimate Anisocytosis Macrocytosis Rouleaux APTT Sodium Potassium Chloride Carbon Dioxide BUN Creatinine Estim Creat Clear Calc Est GFR (MDRD) Af Amer Est GFR (MDRD) Non-Af BUN/Creatinine Ratio Glucose Calcium Phosphorus Magnesium Albumin Random Vancomycin Hep Bs Antigen Hep Bs Antibody Hep B Core Total Ab 05/20/18 05/20/18 05/20/18 05:25 11:55 19:00 WBC RBC Hgb Hct MCV MCH MCHC RDW RDW Differential Plt Count MPV Neut % (Auto) Absolute Neuts (auto) Absolute Lymphs (auto) Total Counted Neutrophils % (Manual) Band Neutrophils % Lymphocytes % (Manual) Monocytes % (Manual) Metamyelocytes % Myelocytes % Promyelocytes % Diff Path Review Reviewed Smudge Cells Toxic Granulation Platelet Estimate Anisocytosis Macrocytosis Rouleaux APTT 75.3 H Sodium Potassium Chloride Carbon Dioxide BUN Creatinine Estim Creat Clear Calc Est GFR (MDRD) Af Amer Est GFR (MDRD) Non-Af BUN/Creatinine Ratio Glucose Calcium Phosphorus Magnesium Albumin Random Vancomycin Hep Bs Antigen Pending Hep Bs Antibody Pending Hep B Core Total Ab Pending 05/20/18 05/21/18 05/21/18 19:05 01:00 04:10 WBC 37.7 H* RBC 2.88 L Hgb 10.0 L Hct 29.1 L MCV 101.0 H MCH 34.7 H MCHC 34.4 RDW 18.4 H RDW Differential 68.9 H Plt Count 347 MPV 11.5 Neut % (Auto) Not Reportable Absolute Neuts (auto) 34.3 H Absolute Lymphs (auto) 1.13 Total Counted 100 Neutrophils % (Manual) 62 Band Neutrophils % 21 H Lymphocytes % (Manual) 3 L Monocytes % (Manual) 6 Metamyelocytes % 3 H Myelocytes % 1 H Promyelocytes % 4 H Diff Path Review Reviewed Smudge Cells 2+ Toxic Granulation 1+ Platelet Estimate ADEQUATE Anisocytosis 2+ Macrocytosis 1+ Rouleaux 1+ APTT 65.1 H 67.4 H Sodium Potassium Chloride Carbon Dioxide BUN Creatinine Estim Creat Clear Calc Est GFR (MDRD) Af Amer Est GFR (MDRD) Non-Af BUN/Creatinine Ratio Glucose Calcium Phosphorus Magnesium Albumin Random Vancomycin Hep Bs Antigen Hep Bs Antibody Hep B Core Total Ab 05/21/18 05/21/18 05/21/18 04:10 06:20 06:20 WBC RBC Hgb Hct MCV MCH MCHC RDW RDW Differential Plt Count MPV Neut % (Auto) Absolute Neuts (auto) Absolute Lymphs (auto) Total Counted Neutrophils % (Manual) Band Neutrophils % Lymphocytes % (Manual) Monocytes % (Manual) Metamyelocytes % Myelocytes % Promyelocytes % Diff Path Review Smudge Cells Toxic Granulation Platelet Estimate Anisocytosis Macrocytosis Rouleaux APTT 103.1 H* Sodium 134 L Potassium 3.4 L Chloride 101 Carbon Dioxide 22.0 BUN 45 H Creatinine 1.96 H Estim Creat Clear Calc 43.44 Est GFR (MDRD) Af Amer 45 L Est GFR (MDRD) Non-Af 37 L BUN/Creatinine Ratio 23.0 H Glucose 204 H Calcium 6.3 L* Phosphorus 3.9 Magnesium 2.7 H Albumin 1.1 L Random Vancomycin 19.6 H Hep Bs Antigen Hep Bs Antibody Hep B Core Total Ab Medical Necessity - Tobacco Use Smoking Status: Current every day smoker Tobacco Use: Cigarettes Assessment/Plan All Active Problems (Last Reviewed 05/04/18 @ 08:39 by Prasanth Pradhan MD) Gross hematuria (Acute) Overweight (Acute) MASOOD (obstructive sleep apnea) (Acute) Colovesical fistula (Acute) Large bowel anastomotic leak (Acute) Sepsis associated hypotension (Acute) Perforated abdominal viscus (Acute) Perforated viscus (Acute) Acute kidney injury (Acute) OVI. likely ATN from sepsis. he was admitted with colovesical fistula, s/p sigmoid resection, fistula closure with laparotomy. repeat exploration due to anastamotic leak and repair of jejunal perforation ? urine output yesterday vs debris from bladder. tolerated dialysis ok yesterday WBC is higher pressor requirements about the same FiO2 somewhat better overall 16 L positive since admission, on TPN will try slow dialysis again today d/w Dr Woo, Dr Whatley
[2018-05-21 12:51] LABS: Bedside Glucose 175 mg/dL (70-110)
[2018-05-21] MEDS: Insulin Lispro 100 UNIT/ML INSULN.PEN SC ×3 (12:52→23:08)
[2018-05-21 13:25] LABS: Partial Thromboplast Time 88.4 Seconds (24.1-36.2)
[2018-05-21] MEDS: Heparin 10,000 UNITS/10 ML Vial IV (18:56)
[2018-05-21 19:41] LABS: Bedside Glucose 144 mg/dL (70-110)
[2018-05-21 20:28] LABS: Partial Thromboplast Time 96.6 Seconds (24.1-36.2)
[2018-05-21] MEDS: Atorvastatin Calcium 40 MG Tablet NG (21:39)
[2018-05-22] VITALS (81 sets, daily range): BP systolic 75–112; BP diastolic 45–71; PULSE 82–118; RESP 15–24; TEMP 36.4–37; O2SAT 87–98
[2018-05-22] MEDS: 0.9% NaCl Peripheral Flush Adult/Peds IV ×2 (00:17→05:11)
[2018-05-22 00:20] LABS: Bedside Glucose 176 mg/dL (70-110)
[2018-05-22 00:47] LABS: Partial Thromboplast Time 78.6 Seconds (24.1-36.2)
[2018-05-22 04:24] LABS: Anion Gap 11 (5-15); BUN 34 mg/dL (7-18); Calcium,Total 6.9 mg/dL (8.5-10.1); Chloride 98 mmol/L (98-107); EST Glomerular Filtration Rate 36 mL/min (>60); Est Glom Filt Rate - Afr Amer 44 mL/min (>60); Estimated Creatinine Clearance 42.57 ml/min; Glucose 179 mg/dL (74-106); Magnesium 2.5 mg/dL (1.6-2.6); Potassium 2.9 mmol/L (3.5-5.1); Sodium Level 135 mmol/L (136-145)
[2018-05-22 04:29] LABS: Hematocrit 29.6 % (40-54); Mean Corp Hgb Conc 33.8 g/gl (32-36); Mean Corpuscular Hgb 34.4 pg (27.0-32.0); Mean Corpuscular Volume 101.7 fL (80-94); Mean Platelet Vol. 11.9 fl (6.2-12.0); Platelet Count 289 K/mm3 (150-450); RBC Distribution Width CV 18.2 % (11.6-14.6); RBC Distribution Width SD 67.8 fl (35.1-43.9); Red Blood Count 2.91 M/mm3 (4.6-6.2)
[2018-05-22 04:33] LABS: Differential Indicated MANUAL DIFF; POSITIVE COUNT YES; POSITIVE DIFFERENTIAL NO; POSITIVE MORPHOLOGY YES; White Blood Count 30.8 K/mm3 (4.4-11.0)
[2018-05-22 04:48] LABS: Eosinophil 1 % (0-5); Lymphocyte 7 % (19-41); Metamyelocyte 3 % (0-1); Monocyte 6 % (0-10); Neutrophil-Band 26 % (0-5); Neutrophil-Segmented 55 % (47-70); Other WBC Type 1 %; Plasma Cell 1 %; Total Cells Counted 100 (MANUAL DIFF)
[2018-05-22 04:51] LABS: Absolute Lymphocyte Count 2.16 X10^3/ul (0.83-4.51); Absolute Neutrophil Count 25.9 X10^3/uL (2.0-7.7); Lymphocyte # 2.16 X10^3/ul (4.0)
[2018-05-22 04:52] LABS: Anisocytosis 1+; Macrocytosis 1+; Platelet Estimate ADEQUATE (ADEQ)
[2018-05-22 04:53] LABS: Hypochromasia 1+; Toxic Granulation 1+
[2018-05-22 04:58] LABS: Absolute Nucleated RBC Count 0.09 10^3/uL (0-5); NRBC Flagged by Analyzer 0.3 % (0-5)
[2018-05-22] MEDS: Insulin Lispro 100 UNIT/ML INSULN.PEN SC ×4 (05:12→23:08)
[2018-05-22 05:26] LABS: Bedside Glucose 184 mg/dL (70-110)
[2018-05-22] MEDS: fentaNYL drip 100 ML 5 MCG IV ×2 (05:26→17:24)
[2018-05-22 06:07] LABS: HEPATITIS B SURFACE AG Negative (Negative)
--- NOTE | 2018-05-22 06:36 | PCM.PN.INT ---
Subjective: The patient was seen and examined at the bedside this morning. Events from the last 24 hours have been reviewed. The patient is currently afebrile, but still requiring vasopressor support to maintain hemodynamic stability. The patient remains on vasopressin, but his Levophed requirement has been weaned down to 10 mcg this morning. He remains on a continuous heparin infusion. His FiO2 requirement has also been able to be weaned down over the course of the night to 60% this morning. He remains on fentanyl for pain control. The patient tolerated dialysis yesterday with fluid removal. He remains on TPN. Attempts at trickle tube feeds yesterday was unsuccessful. The patient's white blood cell count is now beginning to decrease. He was started on empiric treatment for C. difficile yesterday. Potassium is low at 2.9 this morning. Supplementation has been ordered. Nursing staff does report that they are concerned that the patient is becoming more depressed. The patient is now documented to be overall net +16.7 L for the admission. There are plans for the patient to undergo hemodialysis this morning. Objective: The patient's most recent lab work, culture data and imaging studies have all been personally reviewed. A transesophageal echocardiogram from August 2017 revealed evidence of a moderately severe global LV systolic dysfunction with an ejection fraction of 30%. There is also evidence of moderate global RV systolic dysfunction. There was moderate aortic valve stenosis. General: Alert, No apparent distress, - - Remains intubated and mechanically ventilated. HEENT: Atraumatic, PERRLA, Normocephalic Oral: No Gingival or Mucosal Lesions/ Ulcerations, - - Endotracheal tube remains in place Neck: Supple, No Nodes, Trachea Midline, - - Right IJ temporary hemodialysis catheter and left sided triple-lumen catheter in place Lungs: No rhonchi, No wheeze, No rales, Diminished Cardiovascular: Normal S1, Normal S2, No murmurs, Tachycardic Abdomen: Bowel Sounds Present, - - Abdominal wound is largely unchanged from previous with retention sutures in place, ostomy and RICARDO drains. Extremities: No clubbing, No cyanosis, - - Diffuse anasarca Skin: - - No significant change from previous Musculoskeletal: No Tenderness to Palpation of Joints or Extremities Lymphatic: No Cervical, Supraclavicular, or Inguinal Adenopathy Neurological: Neuro grossly intact Psych/Mental Status: Flat Affect, Depressed Vital Signs Temp Pulse Resp BP Pulse Ox 36.4 C L 93 17 93/54 L 95 05/22/18 00:00 05/22/18 06:30 05/22/18 06:00 05/22/18 06:30 05/22/18 06:00 Oxygen Flow Rate (L/min) 60 Oxygen Delivery Method Mechanical Ventilator Weight: 263 lb 0.183 oz Body Mass Index (BMI) 29.9 Intake and Output for Last 24 Hours 05/20/18 05/21/18 05/22/18 23:59 23:59 23:59 Intake Total 5557.0 / 5557.0 2541.3 / 2541.3 1294.0 / 1294.0 Output Total 3265 / 3265 875 / 875 640 / 640 Balance 2292.0 / 2292.0 1666.3 / 1666.3 654.0 / 654.0 Labs (Last 48 Hours) 05/17/18 05/18/18 05/19/18 21:18 20:05 03:45 WBC RBC Hgb Hct MCV MCH MCHC RDW RDW Differential Plt Count MPV Neut % (Auto) Absolute Neuts (auto) Absolute Lymphs (auto) Total Counted Neutrophils % (Manual) Band Neutrophils % Lymphocytes % (Manual) Monocytes % (Manual) Eosinophils % (Manual) Metamyelocytes % Myelocytes % Promyelocytes % Plasma Cell % (Manual) Other Cells % Nucleated RBC % Diff Path Review Reviewed Reviewed Reviewed Smudge Cells Toxic Granulation Platelet Estimate Plt Morphology Comment Polychromasia Hypochromasia Anisocytosis Microcytosis Macrocytosis Rouleaux Absolute Retic PT INR APTT Sodium Potassium Chloride Carbon Dioxide Anion Gap BUN Creatinine Estim Creat Clear Calc Est GFR (MDRD) Af Amer Est GFR (MDRD) Non-Af BUN/Creatinine Ratio Glucose Calcium Phosphorus Magnesium Total Bilirubin AST ALT Alkaline Phosphatase Total Protein Albumin Globulin Albumin/Globulin Ratio Prealbumin Random Vancomycin Hep Bs Antigen Hep Bs Antibody Hep B Core Total Ab POC Glucose 05/20/18 05/20/18 05/20/18 05:25 05:25 05:25 WBC 30.6 H* RBC 2.93 L Hgb 10.1 L Hct 29.9 L MCV 102.0 H MCH 34.5 H MCHC 33.8 RDW 18.7 H RDW Differential 69.9 H Plt Count 428 MPV 12.0 Neut % (Auto) Not Reportable Absolute Neuts (auto) 27.8 H Absolute Lymphs (auto) 1.22 Total Counted 100 Neutrophils % (Manual) 85 H Band Neutrophils % 6 H Lymphocytes % (Manual) 4 L Monocytes % (Manual) 4 Eosinophils % (Manual) Metamyelocytes % 1 Myelocytes % Promyelocytes % Plasma Cell % (Manual) Other Cells % Nucleated RBC % Diff Path Review Reviewed Smudge Cells Toxic Granulation Platelet Estimate ADEQUATE Plt Morphology Comment LARGE Polychromasia RARE Hypochromasia 1+ Anisocytosis 1+ Microcytosis 1+ Macrocytosis Rouleaux Absolute Retic PT 17.9 H INR 1.5 APTT Sodium 131 L Potassium 2.6 L* Chloride 98 Carbon Dioxide 20.0 L Anion Gap 13 BUN 60 H Creatinine 2.54 H Estim Creat Clear Calc 33.52 Est GFR (MDRD) Af Amer 33 L Est GFR (MDRD) Non-Af 28 L BUN/Creatinine Ratio 23.6 H Glucose 232 H Calcium 6.4 L* Phosphorus Magnesium Total Bilirubin 1.40 H AST 113 H ALT 30 Alkaline Phosphatase 135 H Total Protein 4.6 L Albumin 1.2 L Globulin 3.4 Albumin/Globulin Ratio 0.4 L Prealbumin Random Vancomycin Hep Bs Antigen Hep Bs Antibody Hep B Core Total Ab POC Glucose 05/20/18 05/20/18 05/20/18 05:25 05:25 06:50 WBC RBC Hgb Hct MCV MCH MCHC RDW RDW Differential Plt Count MPV Neut % (Auto) Absolute Neuts (auto) Absolute Lymphs (auto) Total Counted Neutrophils % (Manual) Band Neutrophils % Lymphocytes % (Manual) Monocytes % (Manual) Eosinophils % (Manual) Metamyelocytes % Myelocytes % Promyelocytes % Plasma Cell % (Manual) Other Cells % Nucleated RBC % Diff Path Review Smudge Cells Toxic Granulation Platelet Estimate Plt Morphology Comment Polychromasia Hypochromasia Anisocytosis Microcytosis Macrocytosis Rouleaux Absolute Retic PT INR APTT 97.7 H* Sodium Potassium Chloride Carbon Dioxide Anion Gap BUN Creatinine Estim Creat Clear Calc Est GFR (MDRD) Af Amer Est GFR (MDRD) Non-Af BUN/Creatinine Ratio Glucose Calcium Phosphorus 4.9 Magnesium 2.9 H Total Bilirubin AST ALT Alkaline Phosphatase Total Protein Albumin Globulin Albumin/Globulin Ratio Prealbumin < 3.0 L Random Vancomycin 15.0 Hep Bs Antigen Hep Bs Antibody Hep B Core Total Ab POC Glucose 05/20/18 05/20/18 05/20/18 11:55 19:00 19:05 WBC RBC Hgb Hct MCV MCH MCHC RDW RDW Differential Plt Count MPV Neut % (Auto) Absolute Neuts (auto) Absolute Lymphs (auto) Total Counted Neutrophils % (Manual) Band Neutrophils % Lymphocytes % (Manual) Monocytes % (Manual) Eosinophils % (Manual) Metamyelocytes % Myelocytes % Promyelocytes % Plasma Cell % (Manual) Other Cells % Nucleated RBC % Diff Path Review Smudge Cells Toxic Granulation Platelet Estimate Plt Morphology Comment Polychromasia Hypochromasia Anisocytosis Microcytosis Macrocytosis Rouleaux Absolute Retic PT INR APTT 75.3 H 65.1 H Sodium Potassium Chloride Carbon Dioxide Anion Gap BUN Creatinine Estim Creat Clear Calc Est GFR (MDRD) Af Amer Est GFR (MDRD) Non-Af BUN/Creatinine Ratio Glucose Calcium Phosphorus Magnesium Total Bilirubin AST ALT Alkaline Phosphatase Total Protein Albumin Globulin Albumin/Globulin Ratio Prealbumin Random Vancomycin Hep Bs Antigen Pending Hep Bs Antibody Pending Hep B Core Total Ab Pending POC Glucose 05/21/18 05/21/18 05/21/18 01:00 04:10 04:10 WBC 37.7 H* RBC 2.88 L Hgb 10.0 L Hct 29.1 L MCV 101.0 H MCH 34.7 H MCHC 34.4 RDW 18.4 H RDW Differential 68.9 H Plt Count 347 MPV 11.5 Neut % (Auto) Not Reportable Absolute Neuts (auto) 34.3 H Absolute Lymphs (auto) 1.13 Total Counted 100 Neutrophils % (Manual) 62 Band Neutrophils % 21 H Lymphocytes % (Manual) 3 L Monocytes % (Manual) 6 Eosinophils % (Manual) Metamyelocytes % 3 H Myelocytes % 1 H Promyelocytes % 4 H Plasma Cell % (Manual) Other Cells % Nucleated RBC % Diff Path Review Reviewed Smudge Cells 2+ Toxic Granulation 1+ Platelet Estimate ADEQUATE Plt Morphology Comment Polychromasia Hypochromasia Anisocytosis 2+ Microcytosis Macrocytosis 1+ Rouleaux 1+ Absolute Retic PT INR APTT 67.4 H Sodium 134 L Potassium 3.4 L Chloride 101 Carbon Dioxide 22.0 Anion Gap BUN 45 H Creatinine 1.96 H Estim Creat Clear Calc 43.44 Est GFR (MDRD) Af Amer 45 L Est GFR (MDRD) Non-Af 37 L BUN/Creatinine Ratio 23.0 H Glucose 204 H Calcium 6.3 L* Phosphorus 3.9 Magnesium 2.7 H Total Bilirubin AST ALT Alkaline Phosphatase Total Protein Albumin 1.1 L Globulin Albumin/Globulin Ratio Prealbumin Random Vancomycin Hep Bs Antigen Hep Bs Antibody Hep B Core Total Ab POC Glucose 05/21/18 05/21/18 05/21/18 06:20 06:20 12:44 WBC RBC Hgb Hct MCV MCH MCHC RDW RDW Differential Plt Count MPV Neut % (Auto) Absolute Neuts (auto) Absolute Lymphs (auto) Total Counted Neutrophils % (Manual) Band Neutrophils % Lymphocytes % (Manual) Monocytes % (Manual) Eosinophils % (Manual) Metamyelocytes % Myelocytes % Promyelocytes % Plasma Cell % (Manual) Other Cells % Nucleated RBC % Diff Path Review Smudge Cells Toxic Granulation Platelet Estimate Plt Morphology Comment Polychromasia Hypochromasia Anisocytosis Microcytosis Macrocytosis Rouleaux Absolute Retic PT INR APTT 103.1 H* Sodium Potassium Chloride Carbon Dioxide Anion Gap BUN Creatinine Estim Creat Clear Calc Est GFR (MDRD) Af Amer Est GFR (MDRD) Non-Af BUN/Creatinine Ratio Glucose Calcium Phosphorus Magnesium Total Bilirubin AST ALT Alkaline Phosphatase Total Protein Albumin Globulin Albumin/Globulin Ratio Prealbumin Random Vancomycin 19.6 H Hep Bs Antigen Hep Bs Antibody Hep B Core Total Ab POC Glucose 175 H 05/21/18 05/21/18 05/21/18 13:00 18:43 20:00 WBC RBC Hgb Hct MCV MCH MCHC RDW RDW Differential Plt Count MPV Neut % (Auto) Absolute Neuts (auto) Absolute Lymphs (auto) Total Counted Neutrophils % (Manual) Band Neutrophils % Lymphocytes % (Manual) Monocytes % (Manual) Eosinophils % (Manual) Metamyelocytes % Myelocytes % Promyelocytes % Plasma Cell % (Manual) Other Cells % Nucleated RBC % Diff Path Review Smudge Cells Toxic Granulation Platelet Estimate Plt Morphology Comment Polychromasia Hypochromasia Anisocytosis Microcytosis Macrocytosis Rouleaux Absolute Retic PT INR APTT 88.4 H 96.6 H* Sodium Potassium Chloride Carbon Dioxide Anion Gap BUN Creatinine Estim Creat Clear Calc Est GFR (MDRD) Af Amer Est GFR (MDRD) Non-Af BUN/Creatinine Ratio Glucose Calcium Phosphorus Magnesium Total Bilirubin AST ALT Alkaline Phosphatase Total Protein Albumin Globulin Albumin/Globulin Ratio Prealbumin Random Vancomycin Hep Bs Antigen Hep Bs Antibody Hep B Core Total Ab POC Glucose 144 H 05/21/18 05/22/18 05/22/18 23:07 00:15 04:00 WBC 30.8 H* RBC 2.91 L Hgb 10.0 L Hct 29.6 L MCV 101.7 H MCH 34.4 H MCHC 33.8 RDW 18.2 H RDW Differential 67.8 H Plt Count 289 MPV 11.9 Neut % (Auto) Not Reportable Absolute Neuts (auto) 25.9 H Absolute Lymphs (auto) 2.16 Total Counted 100 Neutrophils % (Manual) 55 Band Neutrophils % 26 H Lymphocytes % (Manual) 7 L Monocytes % (Manual) 6 Eosinophils % (Manual) 1 Metamyelocytes % 3 H Myelocytes % Promyelocytes % Plasma Cell % (Manual) 1 Other Cells % 1 Nucleated RBC % 0.3 Diff Path Review May foll Smudge Cells Toxic Granulation 1+ Platelet Estimate ADEQUATE Plt Morphology Comment Polychromasia Hypochromasia 1+ Anisocytosis 1+ Microcytosis Macrocytosis 1+ Rouleaux Absolute Retic 0.09 PT INR APTT 78.6 H Sodium Potassium Chloride Carbon Dioxide Anion Gap BUN Creatinine Estim Creat Clear Calc Est GFR (MDRD) Af Amer Est GFR (MDRD) Non-Af BUN/Creatinine Ratio Glucose Calcium Phosphorus Magnesium Total Bilirubin AST ALT Alkaline Phosphatase Total Protein Albumin Globulin Albumin/Globulin Ratio Prealbumin Random Vancomycin Hep Bs Antigen Hep Bs Antibody Hep B Core Total Ab POC Glucose 176 H 05/22/18 05/22/18 05/22/18 04:00 04:00 04:00 WBC RBC Hgb Hct MCV MCH MCHC RDW RDW Differential Plt Count MPV Neut % (Auto) Absolute Neuts (auto) Absolute Lymphs (auto) Total Counted Neutrophils % (Manual) Band Neutrophils % Lymphocytes % (Manual) Monocytes % (Manual) Eosinophils % (Manual) Metamyelocytes % Myelocytes % Promyelocytes % Plasma Cell % (Manual) Other Cells % Nucleated RBC % Diff Path Review Smudge Cells Toxic Granulation Platelet Estimate Plt Morphology Comment Polychromasia Hypochromasia Anisocytosis Microcytosis Macrocytosis Rouleaux Absolute Retic PT INR APTT 66.0 H Sodium 135 L Potassium 2.9 L Chloride 98 Carbon Dioxide 26.0 Anion Gap 11 BUN 34 H Creatinine 2.00 H Estim Creat Clear Calc 42.57 Est GFR (MDRD) Af Amer 44 L Est GFR (MDRD) Non-Af 36 L BUN/Creatinine Ratio 17.0 Glucose 179 H Calcium 6.9 L Phosphorus 4.0 Magnesium 2.5 Total Bilirubin AST ALT Alkaline Phosphatase Total Protein Albumin Globulin Albumin/Globulin Ratio Prealbumin Random Vancomycin Hep Bs Antigen Hep Bs Antibody Hep B Core Total Ab POC Glucose 05/22/18 05/22/18 05:08 05:38 WBC RBC Hgb Hct MCV MCH MCHC RDW RDW Differential Plt Count MPV Neut % (Auto) Absolute Neuts (auto) Absolute Lymphs (auto) Total Counted Neutrophils % (Manual) Band Neutrophils % Lymphocytes % (Manual) Monocytes % (Manual) Eosinophils % (Manual) Metamyelocytes % Myelocytes % Promyelocytes % Plasma Cell % (Manual) Other Cells % Nucleated RBC % Diff Path Review Smudge Cells Toxic Granulation Platelet Estimate Plt Morphology Comment Polychromasia Hypochromasia Anisocytosis Microcytosis Macrocytosis Rouleaux Absolute Retic PT INR APTT Sodium Potassium Chloride Carbon Dioxide Anion Gap BUN Creatinine Estim Creat Clear Calc Est GFR (MDRD) Af Amer Est GFR (MDRD) Non-Af BUN/Creatinine Ratio Glucose Calcium Phosphorus Magnesium Total Bilirubin AST ALT Alkaline Phosphatase Total Protein Albumin Globulin Albumin/Globulin Ratio Prealbumin Random Vancomycin Pending Hep Bs Antigen Hep Bs Antibody Hep B Core Total Ab POC Glucose 184 H Microbiology 05/20/18 09:35 Wound Drainage - Aerobic & Anaerobic Swabs Gram Stain - Final 05/20/18 09:35 Wound Drainage - Aerobic & Anaerobic Swabs Wound Culture - Preliminary Gram positive organism Yeast Like Organism 05/17/18 10:25 Urine Catheter - Maldonado Urine Culture - Final Danya albicans Clinical Impression(s) from Imaging Studies Abdomen/Pelvis CT 05/03/18 07:41 IMPRESSION: Large bladder mass as described causing a marked degree of bladder dilatation. Air is seen within the urinary bladder. This may be related to Maldonado catheter manipulation. If not, a colovesical fistula should be ruled out. Electronically Signed: Johnny Neil MD at 9:02 EST , Service support , Chest X-Ray 05/03/18 09:37 IMPRESSION: Mild cardiomegaly. Electronically Signed: Johnny Neil MD at 10:05 EST , Service support , Abdomen/Pelvis CT 05/04/18 07:00 IMPRESSION: Evaluation was performed to evaluate for a colovesical fistula. Please note that a study prior to injection of rectal contrast was not performed. This somewhat limits evaluation. There is hyperdense material in the bladder at time of prior study May 03, 2018 which most likely represented a hematoma. On today's examination again noted is gas as well as hyperdense material within the bladder. There is intimate association with a segment of the sigmoid colon with the urinary bladder. There is a small focus of gas within the bladder at this region. Findings would be concerning for a colovesical fistula. Correlate with urinalysis. Interval placement of a Maldonado catheter. The previously noted bladder hyperdense masslike lesion has significantly decreased in size. Likely representing a large hematoma. Recommend follow-up to ensure resolution. Diverticulosis is present. There is some thickening of the sigmoid colon with some stranding concerning for diverticulitis. Infrarenal abdominal aortic aneurysm. Decreasing right hydronephrosis. Evidence of prior granulomatous disease. Bilateral nephrolithiasis. Electronically Signed: Dawood Morrison at 7:57 EST Tel , Service support , Chest X-Ray 05/10/18 05:55 IMPRESSION: Atelectasis and/or infiltrates at the lung bases worse on the left side with blunting of left costophrenic angle. Electronically Signed: Johnny Neil MD at 9:43 EST , Service support , Chest X-Ray 05/12/18 16:45 IMPRESSION: 1. Decreased bibasilar atelectasis. No organizing infiltrates seen. 2. Gaseous distention of bowel in the upper abdomen, incompletely visualized. 3. Mild cardiomegaly. Electronically Signed: Tunde Cole MD at 17:03 EST , Service support , Abdomen/Pelvis CT 05/13/18 10:28 IMPRESSION: Small bilateral pleural effusions with bibasilar infiltrates and/or atelectasis. Small amount of perihepatic as well as perisplenic fluid as well as fluid in the pelvis. Small amount of fluid in the Colic gutters. Postoperative changes in the region of the umbilicus there Distention of the ascending colon and transverse colon and descending colon down to the region of the anastomosis at the rectosigmoid junction. A Maldonado catheter seen within the urinary bladder. Electronically Signed: Johnny Neil MD at 13:48 EST , Service support , Chest X-Ray 05/13/18 14:18 IMPRESSION: The tip of the right internal jugular venous catheter is in the proximal portion of the superior vena cava. There is no evidence of pneumothorax. Stable appearance of the lungs. Electronically Signed: Johnny Neil MD at 15:52 EST , Service support , Chest X-Ray 05/13/18 19:24 IMPRESSION: Interval placement endotracheal and enteric tubes as above. at 1955 Reported and signed by: Jason Goins MD Electronically Signed: Jason Goins, at 19:54 EST Tel , Service support , Chest X-Ray 05/16/18 09:45 IMPRESSION: Mild degree of increased markings at the lung bases. Free intraperitoneal air with the dilatation of the colon. Electronically Signed: Johnny Neil, at 14:24 EST , Service support , Abdomen CT 05/17/18 11:30 IMPRESSION: 1. Extensive free air and mild free fluid in the anterior abdomen, concerning for possible anastomotic leak. Open wound may be contributory. 2. Dilated small bowel with gradual transition in the pelvis, possibly due to adhesions. 3. Gas in decompressed bladder may be due to catheter placement or fistula. 4. Small pleural effusions. 5. A 3.2 cm infrarenal AAA. 6. Left femoral head collapse, likely secondary to avascular necrosis. Dr. Mayorga discussed the findings with Dr. Woo at 5:28 PM. N.B. : The above information has been verbally conveyed by Aleena Mayorga MD to Dr. Gerardo Woo MD, on 05/17/2018 17:29:57 (ET). Electronically Signed: Aleena Mayorga MD at 17:31 EST Tel , Service support , ADDENDUM: 05/17/18 1738 IMPRESSION: 1. Extensive free air and mild free fluid in the anterior abdomen, concerning for possible anastomotic leak. Open wound may be contributory. 2. Dilated small bowel with gradual transition in the pelvis, possibly due to adhesions. 3. Gas in decompressed bladder may be due to catheter placement or fistula. 4. Small pleural effusions. 5. A 3.2 cm infrarenal AAA. 6. Left femoral head collapse, likely secondary to avascular necrosis. Dr. Mayorga discussed the findings with Dr. Woo at 5:28 PM. N.B. : The above information has been verbally conveyed by Aleena Mayorga MD to Dr. Gerardo Woo MD, on 05/17/2018 17:29:57 (ET). Electronically Signed: Aleena Mayorga MD at 17:31 EST Tel , Service support , KUB X-Ray 05/17/18 22:56 IMPRESSION: NG tube terminates in the gastric antrum. Electronically Signed: Aleena Mayorga MD at 23:58 EST Tel , Service support , Abdomen CT 05/17/18 22:59 IMPRESSION: Large amount of free intraperitoneal air and moderate free fluid similar to previous. As noted on the prior study, this is more than is normally seen postoperatively and is concerning for bowel perforation or perhaps wound dehiscence. No extraluminal enteric contrast identified. However there is pneumatosis and wall thickening of the ascending colon with immediately adjacent foci of extraluminal air; suspicious for perforation here. Enteric contrast has not yet reached this loop of bowel. Slight interval worsening of bibasal atelectasis versus pneumonia. Several other chronic findings as above similar to prior. Individualized dose optimization techniques were used for this CT. at 0042 Reported and signed by: Jason Goins MD Electronically Signed: Jason Goins, at 0:40 EST Tel , Service support , ADDENDUM: 05/18/18 0052 IMPRESSION: Large amount of free intraperitoneal air and moderate free fluid similar to previous. As noted on the prior study, this is more than is normally seen postoperatively and is concerning for bowel perforation or perhaps wound dehiscence. No extraluminal enteric contrast identified. However there is pneumatosis and wall thickening of the ascending colon with immediately adjacent foci of extraluminal air; suspicious for perforation here. Enteric contrast has not yet reached this loop of bowel. Slight interval worsening of bibasal atelectasis versus pneumonia. Several other chronic findings as above similar to prior. Individualized dose optimization techniques were used for this CT. at 0042 Reported and signed by: Jason Goins MD N.B. : The above information has been verbally conveyed by Jason Goins to Yoly Gallo RN, on 05/18/2018 00:45:57 (ET). Electronically Signed: Jason Goins, at 0:40 EST Tel , Service support , Chest X-Ray 05/18/18 04:38 IMPRESSION: Compressive atelectasis in the right and left lung lower lobes. Small bilateral pleural effusions. Electronically Signed: Constanza Archer, at 7:53 EST Tel , Service support , Chest X-Ray 05/20/18 00:20 IMPRESSION: Compressive atelectasis in the right and left lung lower lobes. Small bilateral pleural effusions. Electronically Signed: Constanza Archer, at 0:52 EST Tel , Service support , Chest X-Ray 05/20/18 15:09 IMPRESSION: Endotracheal tube in a grossly satisfactory position. Cardiomegaly. Right pleural effusion, cannot exclude associated right basilar atelectasis and/or pneumonia. Pulmonary venous congestion with possible associated interstitial edema. Electronically Signed: Shelbi Peacock MD at 16:17 EST Tel , Service support , Chest X-Ray 05/20/18 15:55 IMPRESSION: Stable examination as detailed above. Electronically Signed: Shelbi Peacock MD at 16:47 EST Tel , Service support , Abdomen CT 05/21/18 06:56 IMPRESSION: Since prior study, there is been progressive circumferential wall thickening of the colon suggestive of colitis. Increased markings in the peritoneal fat. Progressive infiltrates in the lower lobes with small bilateral pleural effusions. Minimal residual free air. Electronically Signed: Johnny Neil, at 10:39 EST , Service support , Medical Necessity - Tobacco Use Smoking Status: Current every day smoker Tobacco Use: Cigarettes Assessment/Plan All Active Problems (Last Reviewed 05/04/18 @ 08:39 by Prasanth Pradhan MD) Gross hematuria (Acute) Overweight (Acute) MASOOD (obstructive sleep apnea) (Acute) Colovesical fistula (Acute) Large bowel anastomotic leak (Acute) Sepsis associated hypotension (Acute) Perforated abdominal viscus (Acute) Perforated viscus (Acute) Acute kidney injury (Acute) RECOMMENDATIONS: 1. Continue broad-spectrum antibiotics, per infectious diseases recommendations. 2. Continue vasopressor support as ordered. Wean as tolerated to maintain a mean arterial pressure at or above 65 mmHg. 3. Aggressive electrolyte repletion. 4. Continue TPN. 5. Resume heparin drip. 6. Continue appropriate ICU prophylaxis 7. Continue to wean FiO2 as tolerated to maintain an oxygen saturation at or above 90%. 8. Continue hemodialysis per nephrology recommendations. IMPRESSIONS: 1. Septic shock secondary to perforated viscus s/p exploratory laparotomy and repair of perforated jejunum The patient is currently on broad-spectrum antimicrobials. Infectious diseases is following. He remains on dual vasopressor support in an attempt to maintain hemodynamic stability. This will be continued in an attempt to maintain a mean arterial pressure at or above 65 mmHg. I recommended judicious use of supplemental IV fluids, given the patient's underlying cardiomyopathy and current volume overloaded state. TPN will be continued for nutritional support. 2. Acute respiratory failure The patient returns to the ICU following surgery on invasive mechanical ventilation. At this time, the patient's clinical state is far too tenuous to consider aggressive weaning from mechanical ventilatory support. Unfortunately, the patient will likely need some form of volume optimization in order to wean his FiO2. Nephrology is following to assist with volume optimization through hemodialysis. 3. Coronary artery disease/chronic systolic heart failure Continue current medical therapy. Continue to hold Lasix and beta-bravo. 4. Paroxysmal atrial fibrillation/chronic anticoagulation status/lower extremity DVT The patient's anticoagulation was fully reversed in preparation for surgery. Given his tenuous clinical status, recommend continuing heparin drip as ordered. 5. Hypokalemia Electrolyte repletion has been ordered. Recommend rechecking levels in the morning. 6. Acute kidney injury Improving. Likely prerenal in etiology and related to ischemic ATN in the setting of #1. Will continue current supportive measures as noted above. Nephrology is currently following. Will defer need for ongoing hemodialysis to nephrology. 7. History of obstructive sleep apnea The patient reports a history of noncompliance with the use of nocturnal Pap therapy. TIME: 40 minutes of critical care time, independent of procedures, was spent addressing the patient's septic shock, perforated viscus, acute respiratory failure, coronary artery disease, biventricular heart failure, paroxysmal atrial fibrillation, hypokalemia, acute kidney injury, review of all data and collaboration with the care team. ([id number]) Code Visit [id number]: [id number] Critical care first hour
--- NOTE | 2018-05-22 06:40 | PN_ITS ---
Subjective: The patient was seen and examined at the bedside this morning. Events from the last 24 hours have been reviewed. The patient is currently afebrile, but still requiring vasopressor support to maintain hemodynamic stability. The patient remains on vasopressin, but his Levophed requirement has been weaned down to 10 mcg this morning. He remains on a continuous heparin infusion. His FiO2 requirement has also been able to be weaned down over the course of the night to 60% this morning. He remains on fentanyl for pain control. The patient pretty erated dialysis yesterday with fluid removal. He remains on TPN. Attempts at trickle tube feeds yesterday was unsuccessful. The patient's white blood cell count is now beginning to decrease. He was started on empiric treatment for C. difficile yesterday. Potassium is low at 2.9 this morning. Supplementation has been ordered. Nursing staff does report that they are concerned that the patient is becoming more depressed. The patient is now documented to be overall net +16.7 L for the admission. There are plans for the patient to undergo hemodialysis this morning. Objective: The patient's most recent lab work, culture data and imaging studies have all been personally reviewed. A transesophageal echocardiogram from August 2017 revealed evidence of a moderately severe global LV systolic dysfunction with an ejection fraction of 30%. There is also evidence of moderate global RV systolic dysfunction. There was moderate aortic valve stenosis. General: Alert, No apparent distress, - - Remains intubated and mechanically ventilated. HEENT: Atraumatic, PERRLA, Normocephalic Oral: No Gingival or Mucosal Lesions/ Ulcerations, - - Endotracheal tube remains in place Neck: Supple, No Nodes, Trachea Midline, - - Right IJ temporary hemodialysis catheter and left sided triple-lumen catheter in place Lungs: No rhonchi, No wheeze, No rales, Diminished Cardiovascular: Normal S1, Normal S2, No murmurs, Tachycardic Abdomen: Bowel Sounds Present, - - Abdominal wound is largely unchanged from previous with retention sutures in place, ostomy and RICARDO drains. Extremities: No clubbing, No cyanosis, - - Diffuse anasarca Skin: - - No significant change from previous Musculoskeletal: No Tenderness to Palpation of Joints or Extremities Lymphatic: No Cervical, Supraclavicular, or Inguinal Adenopathy Neurological: Neuro grossly intact Psych/Mental Status: Flat Affect, Depressed Vital Signs Temp Pulse Resp BP Pulse Ox 36.4 C L 93 17 93/54 L 95 05/22/18 00:00 05/22/18 06:30 05/22/18 06:00 05/22/18 06:30 05/22/18 06:00 Oxygen Flow Rate (L/min) 60 Oxygen Delivery Method Mechanical Ventilator Weight: 263 lb 0.183 oz Body Mass Index (BMI) 29.9 Intake and Output for Last 24 Hours 05/20/18 05/21/18 05/22/18 23:59 23:59 23:59 Intake Total 5557.0 / 5557.0 2541.3 / 2541.3 1294.0 / 1294.0 Output Total 3265 / 3265 875 / 875 640 / 640 Balance 2292.0 / 2292.0 1666.3 / 1666.3 654.0 / 654.0 Labs (Last 48 Hours) 05/17/18 05/18/18 05/19/18 21:18 20:05 03:45 WBC RBC Hgb Hct MCV MCH MCHC RDW RDW Differential Plt Count MPV Neut % (Auto) Absolute Neuts (auto) Absolute Lymphs (auto) Total Counted Neutrophils % (Manual) Band Neutrophils % Lymphocytes % (Manual) Monocytes % (Manual) Eosinophils % (Manual) Metamyelocytes % Myelocytes % Promyelocytes % Plasma Cell % (Manual) Other Cells % Nucleated RBC % Diff Path Review Reviewed Reviewed Reviewed Smudge Cells Toxic Granulation Platelet Estimate Plt Morphology Comment Polychromasia Hypochromasia Anisocytosis Microcytosis Macrocytosis Rouleaux Absolute Retic PT INR APTT Sodium Potassium Chloride Carbon Dioxide Anion Gap BUN Creatinine Estim Creat Clear Calc Est GFR (MDRD) Af Amer Est GFR (MDRD) Non-Af BUN/Creatinine Ratio Glucose Calcium Phosphorus Magnesium Total Bilirubin AST ALT Alkaline Phosphatase Total Protein Albumin Globulin Albumin/Globulin Ratio Prealbumin Random Vancomycin Hep Bs Antigen Hep Bs Antibody Hep B Core Total Ab POC Glucose 05/20/18 05/20/18 05/20/18 05:25 05:25 05:25 WBC 30.6 H* RBC 2.93 L Hgb 10.1 L Hct 29.9 L MCV 102.0 H MCH 34.5 H MCHC 33.8 RDW 18.7 H RDW Differential 69.9 H Plt Count 428 MPV 12.0 Neut % (Auto) Not Reportable Absolute Neuts (auto) 27.8 H Absolute Lymphs (auto) 1.22 Total Counted 100 Neutrophils % (Manual) 85 H Band Neutrophils % 6 H Lymphocytes % (Manual) 4 L Monocytes % (Manual) 4 Eosinophils % (Manual) Metamyelocytes % 1 Myelocytes % Promyelocytes % Plasma Cell % (Manual) Other Cells % Nucleated RBC % Diff Path Review Reviewed Smudge Cells Toxic Granulation Platelet Estimate ADEQUATE Plt Morphology Comment LARGE Polychromasia RARE Hypochromasia 1+ Anisocytosis 1+ Microcytosis 1+ Macrocytosis Rouleaux Absolute Retic PT 17.9 H INR 1.5 APTT Sodium 131 L Potassium 2.6 L* Chloride 98 Carbon Dioxide 20.0 L Anion Gap 13 BUN 60 H Creatinine 2.54 H Estim Creat Clear Calc 33.52 Est GFR (MDRD) Af Amer 33 L Est GFR (MDRD) Non-Af 28 L BUN/Creatinine Ratio 23.6 H Glucose 232 H Calcium 6.4 L* Phosphorus Magnesium Total Bilirubin 1.40 H AST 113 H ALT 30 Alkaline Phosphatase 135 H Total Protein 4.6 L Albumin 1.2 L Globulin 3.4 Albumin/Globulin Ratio 0.4 L Prealbumin Random Vancomycin Hep Bs Antigen Hep Bs Antibody Hep B Core Total Ab POC Glucose 05/20/18 05/20/18 05/20/18 05:25 05:25 06:50 WBC RBC Hgb Hct MCV MCH MCHC RDW RDW Differential Plt Count MPV Neut % (Auto) Absolute Neuts (auto) Absolute Lymphs (auto) Total Counted Neutrophils % (Manual) Band Neutrophils % Lymphocytes % (Manual) Monocytes % (Manual) Eosinophils % (Manual) Metamyelocytes % Myelocytes % Promyelocytes % Plasma Cell % (Manual) Other Cells % Nucleated RBC % Diff Path Review Smudge Cells Toxic Granulation Platelet Estimate Plt Morphology Comment Polychromasia Hypochromasia Anisocytosis Microcytosis Macrocytosis Rouleaux Absolute Retic PT INR APTT 97.7 H* Sodium Potassium Chloride Carbon Dioxide Anion Gap BUN Creatinine Estim Creat Clear Calc Est GFR (MDRD) Af Amer Est GFR (MDRD) Non-Af BUN/Creatinine Ratio Glucose Calcium Phosphorus 4.9 Magnesium 2.9 H Total Bilirubin AST ALT Alkaline Phosphatase Total Protein Albumin Globulin Albumin/Globulin Ratio Prealbumin < 3.0 L Random Vancomycin 15.0 Hep Bs Antigen Hep Bs Antibody Hep B Core Total Ab POC Glucose 05/20/18 05/20/18 05/20/18 11:55 19:00 19:05 WBC RBC Hgb Hct MCV MCH MCHC RDW RDW Differential Plt Count MPV Neut % (Auto) Absolute Neuts (auto) Absolute Lymphs (auto) Total Counted Neutrophils % (Manual) Band Neutrophils % Lymphocytes % (Manual) Monocytes % (Manual) Eosinophils % (Manual) Metamyelocytes % Myelocytes % Promyelocytes % Plasma Cell % (Manual) Other Cells % Nucleated RBC % Diff Path Review Smudge Cells Toxic Granulation Platelet Estimate Plt Morphology Comment Polychromasia Hypochromasia Anisocytosis Microcytosis Macrocytosis Rouleaux Absolute Retic PT INR APTT 75.3 H 65.1 H Sodium Potassium Chloride Carbon Dioxide Anion Gap BUN Creatinine Estim Creat Clear Calc Est GFR (MDRD) Af Amer Est GFR (MDRD) Non-Af BUN/Creatinine Ratio Glucose Calcium Phosphorus Magnesium Total Bilirubin AST ALT Alkaline Phosphatase Total Protein Albumin Globulin Albumin/Globulin Ratio Prealbumin Random Vancomycin Hep Bs Antigen Pending Hep Bs Antibody Pending Hep B Core Total Ab Pending POC Glucose 05/21/18 05/21/18 05/21/18 01:00 04:10 04:10 WBC 37.7 H* RBC 2.88 L Hgb 10.0 L Hct 29.1 L MCV 101.0 H MCH 34.7 H MCHC 34.4 RDW 18.4 H RDW Differential 68.9 H Plt Count 347 MPV 11.5 Neut % (Auto) Not Reportable Absolute Neuts (auto) 34.3 H Absolute Lymphs (auto) 1.13 Total Counted 100 Neutrophils % (Manual) 62 Band Neutrophils % 21 H Lymphocytes % (Manual) 3 L Monocytes % (Manual) 6 Eosinophils % (Manual) Metamyelocytes % 3 H Myelocytes % 1 H Promyelocytes % 4 H Plasma Cell % (Manual) Other Cells % Nucleated RBC % Diff Path Review Reviewed Smudge Cells 2+ Toxic Granulation 1+ Platelet Estimate ADEQUATE Plt Morphology Comment Polychromasia Hypochromasia Anisocytosis 2+ Microcytosis Macrocytosis 1+ Rouleaux 1+ Absolute Retic PT INR APTT 67.4 H Sodium 134 L Potassium 3.4 L Chloride 101 Carbon Dioxide 22.0 Anion Gap BUN 45 H Creatinine 1.96 H Estim Creat Clear Calc 43.44 Est GFR (MDRD) Af Amer 45 L Est GFR (MDRD) Non-Af 37 L BUN/Creatinine Ratio 23.0 H Glucose 204 H Calcium 6.3 L* Phosphorus 3.9 Magnesium 2.7 H Total Bilirubin AST ALT Alkaline Phosphatase Total Protein Albumin 1.1 L Globulin Albumin/Globulin Ratio Prealbumin Random Vancomycin Hep Bs Antigen Hep Bs Antibody Hep B Core Total Ab POC Glucose 05/21/18 05/21/18 05/21/18 06:20 06:20 12:44 WBC RBC Hgb Hct MCV MCH MCHC RDW RDW Differential Plt Count MPV Neut % (Auto) Absolute Neuts (auto) Absolute Lymphs (auto) Total Counted Neutrophils % (Manual) Band Neutrophils % Lymphocytes % (Manual) Monocytes % (Manual) Eosinophils % (Manual) Metamyelocytes % Myelocytes % Promyelocytes % Plasma Cell % (Manual) Other Cells % Nucleated RBC % Diff Path Review Smudge Cells Toxic Granulation Platelet Estimate Plt Morphology Comment Polychromasia Hypochromasia Anisocytosis Microcytosis Macrocytosis Rouleaux Absolute Retic PT INR APTT 103.1 H* Sodium Potassium Chloride Carbon Dioxide Anion Gap BUN Creatinine Estim Creat Clear Calc Est GFR (MDRD) Af Amer Est GFR (MDRD) Non-Af BUN/Creatinine Ratio Glucose Calcium Phosphorus Magnesium Total Bilirubin AST ALT Alkaline Phosphatase Total Protein Albumin Globulin Albumin/Globulin Ratio Prealbumin Random Vancomycin 19.6 H Hep Bs Antigen Hep Bs Antibody Hep B Core Total Ab POC Glucose 175 H 05/21/18 05/21/18 05/21/18 13:00 18:43 20:00 WBC RBC Hgb Hct MCV MCH MCHC RDW RDW Differential Plt Count MPV Neut % (Auto) Absolute Neuts (auto) Absolute Lymphs (auto) Total Counted Neutrophils % (Manual) Band Neutrophils % Lymphocytes % (Manual) Monocytes % (Manual) Eosinophils % (Manual) Metamyelocytes % Myelocytes % Promyelocytes % Plasma Cell % (Manual) Other Cells % Nucleated RBC % Diff Path Review Smudge Cells Toxic Granulation Platelet Estimate Plt Morphology Comment Polychromasia Hypochromasia Anisocytosis Microcytosis Macrocytosis Rouleaux Absolute Retic PT INR APTT 88.4 H 96.6 H* Sodium Potassium Chloride Carbon Dioxide Anion Gap BUN Creatinine Estim Creat Clear Calc Est GFR (MDRD) Af Amer Est GFR (MDRD) Non-Af BUN/Creatinine Ratio Glucose Calcium Phosphorus Magnesium Total Bilirubin AST ALT Alkaline Phosphatase Total Protein Albumin Globulin Albumin/Globulin Ratio Prealbumin Random Vancomycin Hep Bs Antigen Hep Bs Antibody Hep B Core Total Ab POC Glucose 144 H 05/21/18 05/22/18 05/22/18 23:07 00:15 04:00 WBC 30.8 H* RBC 2.91 L Hgb 10.0 L Hct 29.6 L MCV 101.7 H MCH 34.4 H MCHC 33.8 RDW 18.2 H RDW Differential 67.8 H Plt Count 289 MPV 11.9 Neut % (Auto) Not Reportable Absolute Neuts (auto) 25.9 H Absolute Lymphs (auto) 2.16 Total Counted 100 Neutrophils % (Manual) 55 Band Neutrophils % 26 H Lymphocytes % (Manual) 7 L Monocytes % (Manual) 6 Eosinophils % (Manual) 1 Metamyelocytes % 3 H Myelocytes % Promyelocytes % Plasma Cell % (Manual) 1 Other Cells % 1 Nucleated RBC % 0.3 Diff Path Review May foll Smudge Cells Toxic Granulation 1+ Platelet Estimate ADEQUATE Plt Morphology Comment Polychromasia Hypochromasia 1+ Anisocytosis 1+ Microcytosis Macrocytosis 1+ Rouleaux Absolute Retic 0.09 PT INR APTT 78.6 H Sodium Potassium Chloride Carbon Dioxide Anion Gap BUN Creatinine Estim Creat Clear Calc Est GFR (MDRD) Af Amer Est GFR (MDRD) Non-Af BUN/Creatinine Ratio Glucose Calcium Phosphorus Magnesium Total Bilirubin AST ALT Alkaline Phosphatase Total Protein Albumin Globulin Albumin/Globulin Ratio Prealbumin Random Vancomycin Hep Bs Antigen Hep Bs Antibody Hep B Core Total Ab POC Glucose 176 H 05/22/18 05/22/18 05/22/18 04:00 04:00 04:00 WBC RBC Hgb Hct MCV MCH MCHC RDW RDW Differential Plt Count MPV Neut % (Auto) Absolute Neuts (auto) Absolute Lymphs (auto) Total Counted Neutrophils % (Manual) Band Neutrophils % Lymphocytes % (Manual) Monocytes % (Manual) Eosinophils % (Manual) Metamyelocytes % Myelocytes % Promyelocytes % Plasma Cell % (Manual) Other Cells % Nucleated RBC % Diff Path Review Smudge Cells Toxic Granulation Platelet Estimate Plt Morphology Comment Polychromasia Hypochromasia Anisocytosis Microcytosis Macrocytosis Rouleaux Absolute Retic PT INR APTT 66.0 H Sodium 135 L Potassium 2.9 L Chloride 98 Carbon Dioxide 26.0 Anion Gap 11 BUN 34 H Creatinine 2.00 H Estim Creat Clear Calc 42.57 Est GFR (MDRD) Af Amer 44 L Est GFR (MDRD) Non-Af 36 L BUN/Creatinine Ratio 17.0 Glucose 179 H Calcium 6.9 L Phosphorus 4.0 Magnesium 2.5 Total Bilirubin AST ALT Alkaline Phosphatase Total Protein Albumin Globulin Albumin/Globulin Ratio Prealbumin Random Vancomycin Hep Bs Antigen Hep Bs Antibody Hep B Core Total Ab POC Glucose 05/22/18 05/22/18 05:08 05:38 WBC RBC Hgb Hct MCV MCH MCHC RDW RDW Differential Plt Count MPV Neut % (Auto) Absolute Neuts (auto) Absolute Lymphs (auto) Total Counted Neutrophils % (Manual) Band Neutrophils % Lymphocytes % (Manual) Monocytes % (Manual) Eosinophils % (Manual) Metamyelocytes % Myelocytes % Promyelocytes % Plasma Cell % (Manual) Other Cells % Nucleated RBC % Diff Path Review Smudge Cells Toxic Granulation Platelet Estimate Plt Morphology Comment Polychromasia Hypochromasia Anisocytosis Microcytosis Macrocytosis Rouleaux Absolute Retic PT INR APTT Sodium Potassium Chloride Carbon Dioxide Anion Gap BUN Creatinine Estim Creat Clear Calc Est GFR (MDRD) Af Amer Est GFR (MDRD) Non-Af BUN/Creatinine Ratio Glucose Calcium Phosphorus Magnesium Total Bilirubin AST ALT Alkaline Phosphatase Total Protein Albumin Globulin Albumin/Globulin Ratio Prealbumin Random Vancomycin Pending Hep Bs Antigen Hep Bs Antibody Hep B Core Total Ab POC Glucose 184 H Microbiology 05/20/18 09:35 Wound Drainage - Aerobic & Anaerobic Swabs Gram Stain - Final 05/20/18 09:35 Wound Drainage - Aerobic & Anaerobic Swabs Wound Culture - Preliminary Gram positive organism Yeast Like Organism 05/17/18 10:25 Urine Catheter - Maldonado Urine Culture - Final Danya albicans Clinical Impression(s) from Imaging Studies Abdomen/Pelvis CT 05/03/18 07:41 IMPRESSION: Large bladder mass as described causing a marked degree of bladder dilatation. Air is seen within the urinary bladder. This may be related to Maldonado catheter manipulation. If not, a colovesical fistula should be ruled out. Electronically Signed: Johnny Neil MD at 9:02 EST , Service support , Chest X-Ray 05/03/18 09:37 IMPRESSION: Mild cardiomegaly. Electronically Signed: Johnny Neil MD at 10:05 EST , Service support , Abdomen/Pelvis CT 05/04/18 07:00 IMPRESSION: Evaluation was performed to evaluate for a colovesical fistula. Please note that a study prior to injection of rectal contrast was not performed. This somewhat limits evaluation. There is hyperdense material in the bladder at time of prior study May 03, 2018 which most likely represented a hematoma. On today's examination again noted is gas as well as hyperdense material within the bladder. There is intimate association with a segment of the sigmoid colon with the urinary bladder. There is a small focus of gas within the bladder at this region. Findings would be concerning for a colovesical fistula. Correlate with urinalysis. Interval placement of a Maldonado catheter. The previously noted bladder hyperdense masslike lesion has significantly decreased in size. Likely representing a large hematoma. Recommend follow-up to ensure resolution. Diverticulosis is present. There is some thickening of the sigmoid colon with some stranding concerning for diverticulitis. Infrarenal abdominal aortic aneurysm. Decreasing right hydronephrosis. Evidence of prior granulomatous disease. Bilateral nephrolithiasis. Electronically Signed: Dawood Morrison at 7:57 EST Tel , Service support , Chest X-Ray 05/10/18 05:55 IMPRESSION: Atelectasis and/or infiltrates at the lung bases worse on the left side with blunting of left costophrenic angle. Electronically Signed: Johnny Neil MD at 9:43 EST , Service support , Chest X-Ray 05/12/18 16:45 IMPRESSION: 1. Decreased bibasilar atelectasis. No organizing infiltrates seen. 2. Gaseous distention of bowel in the upper abdomen, incompletely visualized. 3. Mild cardiomegaly. Electronically Signed: Tunde Cole MD at 17:03 EST , Service support , Abdomen/Pelvis CT 05/13/18 10:28 IMPRESSION: Small bilateral pleural effusions with bibasilar infiltrates and/or atelectasis. Small amount of perihepatic as well as perisplenic fluid as well as fluid in the pelvis. Small amount of fluid in the Colic gutters. Postoperative changes in the region of the umbilicus there Distention of the ascending colon and transverse colon and descending colon down to the region of the anastomosis at the rectosigmoid junction. A Maldonado catheter seen within the urinary bladder. Electronically Signed: Johnny Neil MD at 13:48 EST , Service support , Chest X-Ray 05/13/18 14:18 IMPRESSION: The tip of the right internal jugular venous catheter is in the proximal portion of the superior vena cava. There is no evidence of pneumothorax. Stable appearance of the lungs. Electronically Signed: Johnny Neil MD at 15:52 EST , Service support , Chest X-Ray 05/13/18 19:24 IMPRESSION: Interval placement endotracheal and enteric tubes as above. at 1955 Reported and signed by: Jason Goins MD Electronically Signed: Jason Goins, at 19:54 EST Tel , Service support , Chest X-Ray 05/16/18 09:45 IMPRESSION: Mild degree of increased markings at the lung bases. Free intraperitoneal air with the dilatation of the colon. Electronically Signed: Johnny Neil, at 14:24 EST , Service support , Abdomen CT 05/17/18 11:30 IMPRESSION: 1. Extensive free air and mild free fluid in the anterior abdomen, concerning for possible anastomotic leak. Open wound may be contributory. 2. Dilated small bowel with gradual transition in the pelvis, possibly due to adhesions. 3. Gas in decompressed bladder may be due to catheter placement or fistula. 4. Small pleural effusions. 5. A 3.2 cm infrarenal AAA. 6. Left femoral head collapse, likely secondary to avascular necrosis. Dr. Mayorga discussed the findings with Dr. Woo at 5:28 PM. N.B. : The above information has been verbally conveyed by Aleena Mayorga MD to Dr. Gerardo Woo MD, on 05/17/2018 17:29:57 (ET). Electronically Signed: Aleena Mayorga MD at 17:31 EST Tel , Service support , ADDENDUM: 05/17/18 1738 IMPRESSION: 1. Extensive free air and mild free fluid in the anterior abdomen, concerning for possible anastomotic leak. Open wound may be contributory. 2. Dilated small bowel with gradual transition in the pelvis, possibly due to adhesions. 3. Gas in decompressed bladder may be due to catheter placement or fistula. 4. Small pleural effusions. 5. A 3.2 cm infrarenal AAA. 6. Left femoral head collapse, likely secondary to avascular necrosis. Dr. Mayorga discussed the findings with Dr. Woo at 5:28 PM. N.B. : The above information has been verbally conveyed by Aleena Mayorga MD to Dr. Gerardo Woo MD, on 05/17/2018 17:29:57 (ET). Electronically Signed: Aleena Mayorga MD at 17:31 EST Tel , Service support , KUB X-Ray 05/17/18 22:56 IMPRESSION: NG tube terminates in the gastric antrum. Electronically Signed: Aleena Mayorga MD at 23:58 EST Tel , Service support , Abdomen CT 05/17/18 22:59 IMPRESSION: Large amount of free intraperitoneal air and moderate free fluid similar to previous. As noted on the prior study, this is more than is normally seen postoperatively and is concerning for bowel perforation or perhaps wound dehiscence. No extraluminal enteric contrast identified. However there is pneumatosis and wall thickening of the ascending colon with immediately adjacent foci of extraluminal air; suspicious for perforation here. Enteric contrast has not yet reached this loop of bowel. Slight interval worsening of bibasal atelectasis versus pneumonia. Several other chronic findings as above similar to prior. Individualized dose optimization techniques were used for this CT. at 0042 Reported and signed by: Jason Goins MD Electronically Signed: Jason Goins, at 0:40 EST Tel , Service support , ADDENDUM: 05/18/18 0052 IMPRESSION: Large amount of free intraperitoneal air and moderate free fluid similar to previous. As noted on the prior study, this is more than is normally seen postoperatively and is concerning for bowel perforation or perhaps wound dehiscence. No extraluminal enteric contrast identified. However there is pneumatosis and wall thickening of the ascending colon with immediately adjacent foci of extraluminal air; suspicious for perforation here. Enteric contrast has not yet reached this loop of bowel. Slight interval worsening of bibasal atelectasis versus pneumonia. Several other chronic findings as above similar to prior. Individualized dose optimization techniques were used for this CT. at 0042 Reported and signed by: Jason Goins MD N.B. : The above information has been verbally conveyed by Jason Goins to Yoly Gallo RN, on 05/18/2018 00:45:57 (ET). Electronically Signed: Jason Goins, at 0:40 EST Tel , Service support , Chest X-Ray 05/18/18 04:38 IMPRESSION: Compressive atelectasis in the right and left lung lower lobes. Small bilateral pleural effusions. Electronically Signed: Constanza Archer, at 7:53 EST Tel , Service support , Chest X-Ray 05/20/18 00:20 IMPRESSION: Compressive atelectasis in the right and left lung lower lobes. Small bilateral pleural effusions. Electronically Signed: Constanza Curielan, at 0:52 EST Tel , Service support , Chest X-Ray 05/20/18 15:09 IMPRESSION: Endotracheal tube in a grossly satisfactory position. Cardiomegaly. Right pleural effusion, cannot exclude associated right basilar atelectasis and/or pneumonia. Pulmonary venous congestion with possible associated interstitial edema. Electronically Signed: Shelbi Peacock MD at 16:17 EST Tel , Service support , Chest X-Ray 05/20/18 15:55 IMPRESSION: Stable examination as detailed above. Electronically Signed: Shelbi Peacock MD at 16:47 EST Tel , Service support , Abdomen CT 05/21/18 06:56 IMPRESSION: Since prior study, there is been progressive circumferential wall thickening of the colon suggestive of colitis. Increased markings in the peritoneal fat. Progressive infiltrates in the lower lobes with small bilateral pleural effusions. Minimal residual free air. Electronically Signed: Johnny Neil, at 10:39 EST , Service support , Medical Necessity - Tobacco Use Smoking Status: Current every day smoker Tobacco Use: Cigarettes Assessment/Plan All Active Problems (Last Reviewed 02/16/19 @ 08:39 by Prasanth Pradhan MD) Gross hematuria (Acute) Overweight (Acute) MASOOD (obstructive sleep apnea) (Acute) Colovesical fistula (Acute) Large bowel anastomotic leak (Acute) Sepsis associated hypotension (Acute) Perforated abdominal viscus (Acute) Perforated viscus (Acute) Acute kidney injury (Acute) RECOMMENDATIONS: 1. Continue broad-spectrum antibiotics, per infectious diseases recommendations. 2. Continue vasopressor support as ordered. Wean as tolerated to maintain a mean arterial pressure at or above 65 mmHg. 3. Aggressive electrolyte repletion. 4. Continue TPN. 5. Resume heparin drip. 6. Continue appropriate ICU prophylaxis 7. Continue to wean FiO2 as tolerated to maintain an oxygen saturation at or above 90%. 8. Continue hemodialysis per nephrology recommendations. IMPRESSIONS: 1. Septic shock secondary to perforated viscus s/p exploratory laparotomy and repair of perforated jejunum The patient is currently on broad-spectrum antimicrobials. Infectious diseases is following. He remains on dual vasopressor support in an attempt to maintain hemodynamic stability. This will be continued in an attempt to maintain a mean arterial pressure at or above 65 mmHg. I recommended judicious use of supplemental IV fluids, given the patient's underlying cardiomyopathy and current volume overloaded state. TPN will be continued for nutritional support. 2. Acute respiratory failure The patient returns to the ICU following surgery on invasive mechanical ventilation. At this time, the patient's clinical state is far too tenuous to consider aggressive weaning from mechanical ventilatory support. Unfortunately, the patient will likely need some form of volume optimization in order to wean his FiO2. Nephrology is following to assist with volume optimization through hemodialysis. 3. Coronary artery disease/chronic systolic heart failure Continue current medical therapy. Continue to hold Lasix and beta-bravo. 4. Paroxysmal atrial fibrillation/chronic anticoagulation status/lower extremity DVT The patient's anticoagulation was fully reversed in preparation for surgery. Given his tenuous clinical status, recommend continuing heparin drip as ordered. 5. Hypokalemia Electrolyte repletion has been ordered. Recommend rechecking levels in the morning. 6. Acute kidney injury Improving. Likely prerenal in etiology and related to ischemic ATN in the setting of #1. Will continue current supportive measures as noted above. Nephrology is currently following. Will defer need for ongoing hemodialysis to nephrology. 7. History of obstructive sleep apnea The patient reports a history of noncompliance with the use of nocturnal Pap therapy. TIME: 40 minutes of critical care time, independent of procedures, was spent addressing the patient's septic shock, perforated viscus, acute respiratory failure, coronary artery disease, biventricular heart failure, paroxysmal atrial fibrillation, hypokalemia, acute kidney injury, review of all data and collaboration with the care team. ([id number]) Code Visit 9xxxx: [id number] Critical care first hour
[2018-05-22 06:41] LABS: Vancomycin, Random Level 14.4 ug/mL (0.0-15.0)
--- NOTE | 2018-05-22 07:48 | PN_ITS ---
Patient Problems: Active and Suspected Problems (Last Reviewed 05/04/18 @ 08:39 by Prasanth Pradhan MD) Gross hematuria (Acute) Overweight (Acute) MASOOD (obstructive sleep apnea) (Acute) non-compliant with CPAP Peripheral arterial disease (Suspected) Colovesical fistula (Acute) Large bowel anastomotic leak (Acute) Sepsis associated hypotension (Acute) Perforated abdominal viscus (Acute) Perforated viscus (Acute) Acute kidney injury (Acute) Subjective: Patient was seen and examined. He remains on pressors. Bloody discharge from colostomy bag- Heparin put on hold. Patient complains of abdominal pain. RICARDO drains have sero-sanguinous discharge. Objective: Physical exam: General: Alert, Oriented x3, Cooperative, - - intubated, on mechanical ventilator, appears fairly comfortable HEENT: Atraumatic, PERRLA, EOMI, Normocephalic Neck: Supple, No JVD, Negative Carotid Bruits Lungs: Normal air movement, Diminished - no rhonchi heard Cardiovascular: Regular rate, Regular Rhythm, Normal S1, Normal S2, No murmurs Abdomen: Bowel Sounds Present - and normal in all 4 quadrants, Soft, Non- Distended, Tender - generalised without guarding and RBT, - - midline dressing is intact, LLQ colostomy appears empty with air and minimal serosanguinous pink fluid, RICARDO drains have serosanguinous fluid Extremities: Edema - +3-4 pitting, non-tender edema Skin: - - weeping of serosanguinous fluid from bilateral legs Musculoskeletal: No Tenderness to Palpation of Joints or Extremities Lymphatic: No Cervical, Supraclavicular, or Inguinal Adenopathy Neurological: Cranial nerves II-XII grossly intact Psych/Mental Status: Normal Affect, Appropriate Vitals/I&O's: Vital Signs Temp Pulse Resp BP Pulse Ox 97.5 F L 98 15 90/53 L 93 05/22/18 00:00 05/22/18 07:15 05/22/18 07:00 05/22/18 07:15 05/22/18 07:00 Oxygen Flow Rate (L/min) 60 Oxygen Delivery Method Mechanical Ventilator Weight: 119.3 kg Body Mass Index (BMI) 29.9 Intake and Output for Last 24 Hours 05/20/18 05/21/18 05/22/18 23:59 23:59 23:59 Intake Total 5557.0 / 5557.0 2541.3 / 2541.3 1294.0 / 1294.0 Output Total 3265 / 3265 875 / 875 640 / 640 Balance 2292.0 / 2292.0 1666.3 / 1666.3 654.0 / 654.0 Microbiology Past 72 Hours 05/20/18 09:35 Wound Drainage - Aerobic & Anaerobic Swabs Gram Stain - Final 05/20/18 09:35 Wound Drainage - Aerobic & Anaerobic Swabs Wound Culture - Preliminary Gram positive organism Yeast Like Organism 05/17/18 10:25 Urine Catheter - Maldonado Urine Culture - Final Danya albicans 05/17/18 07:27 Blood Culture (Wb) - Anticubital Right Blood Culture - Preliminary No growth in 48 hours. 05/17/18 08:25 Blood Culture (Wb) - Central Line Blood Culture - Preliminary No growth in 48 hours. Laboratory Results 05/21/18 04:10: Diff Path Review Reviewed 05/21/18 12:44: POC Glucose 175 H 05/21/18 13:00: APTT 88.4 H 05/21/18 18:43: POC Glucose 144 H 05/21/18 20:00: APTT 96.6 H* 05/21/18 23:07: POC Glucose 176 H 05/22/18 00:15: APTT 78.6 H 05/22/18 04:00: WBC 30.8 H*, RBC 2.91 L, Hgb 10.0 L, Hct 29.6 L, MCV 101.7 H, MCH 34.4 H, MCHC 33.8, RDW 18.2 H, RDW Differential 67.8 H, Plt Count 289, MPV 11.9, Neut % (Auto) Not Reportable, Absolute Neuts (auto) 25.9 H, Absolute Lymphs (auto) 2.16, Total Counted 100, Neutrophils % (Manual) 55, Band Neutrophils % 26 H, Lymphocytes % (Manual) 7 L, Monocytes % (Manual) 6, Eosinophils % (Manual) 1, Metamyelocytes % 3 H, Plasma Cell % (Manual) 1, Other Cells % 1, Nucleated RBC % 0.3, Diff Path Review May foll, Toxic Granulation 1+, Platelet Estimate ADEQUATE, Hypochromasia 1+, Anisocytosis 1+, Macrocytosis 1+, Absolute Retic 0.09 05/22/18 04:00: Sodium 135 L, Potassium 2.9 L, Chloride 98, Carbon Dioxide 26.0, Anion Gap 11, BUN 34 H, Creatinine 2.00 H, Estim Creat Clear Calc 42.57, Est GFR (MDRD) Af Amer 44 L, Est GFR (MDRD) Non-Af 36 L, BUN/Creatinine Ratio 17.0, Glucose 179 H, Calcium 6.9 L, Magnesium 2.5 05/22/18 04:00: Phosphorus 4.0 05/22/18 04:00: APTT 66.0 H 05/22/18 05:08: POC Glucose 184 H 05/22/18 05:38: Random Vancomycin 14.4 Current Medications Albuterol/Ipratropium (Duoneb) 3 ml INHALATION Q4H.RT PRN PRN Reason: WHEEZING Last Admin: 05/18/18 22:15 Dose: 3 ml Atorvastatin Calcium (Lipitor) 40 mg NG HS [facility] Last Admin: 05/21/18 21:39 Dose: 40 mg Bisacodyl (Dulcolax) 5 mg PO DAILY PRN PRN PRN Reason: Constipation Calamine/Phenol (Calmoseptine Ointment) 1 applic TOPICAL BID [facility]; Protocol Last Admin: 05/21/18 21:39 Dose: 1 applicatio Chlorhexidine Gluconate () 15 ml PO BID [facility] Last Admin: 05/21/18 21:39 Dose: 15 ml Chlorhexidine Gluconate () 1 each TOPICAL DAILY [facility] Last Admin: 05/21/18 07:00 Dose: 1 each Docusate Sodium (Colace Syrup) 100 mg NG BID [facility] Last Admin: 05/21/18 21:38 Dose: 100 mg Heparin Sodium (Porcine) (Heparin Na) 0 unit IV UD PRN; Protocol Heparin Sodium (Porcine) () 2,500 units IV UD PRN PRN Reason: HEPARIN FLUSH Vancomycin IV Pharmacy to Dose (1 ea/ Sodium Chloride) 500 mls @ 250 mls/hr IV PRN PRN; Protocol PRN Reason: Rx to Dose Pantoprazole Sodium 40 mg/ (Sodium Chloride) 110 mls @ 330 mls/hr IV Q24 [facility] Last Admin: 05/21/18 10:27 Dose: 330 mls/hr Fentanyl () 100 mls @ 5 mls/hr IV .Q20H [facility]; Protocol Last Admin: 05/22/18 05:26 Dose: 5 mls/hr Heparin Sodium/Dextrose () 25,000 units in 250 mls @ 16 mls/hr IV .[id number] [facility]; Protocol Last Admin: 05/22/18 04:50 Dose: Not Given Norepinephrine Bitartrate 8 mg (/ Dextrose) 258 mls @ 9.68 mls/hr IV .[id number] [facility] Last Admin: 05/22/18 00:12 Dose: 9.68 mls/hr Meropenem 500 mg/ Sodium (Chloride) 60 mls @ 100 mls/hr IV Q24H [facility] Last Admin: 05/21/18 18:50 Dose: 100 mls/hr Vasopressin 20 units/ Sodium (Chloride) 25 mls @ 3 mls/hr IV .[id number] [facility] Last Admin: 05/22/18 00:11 Dose: 3 mls/hr Multivitamins 10 ml/ Chromium/Copper/Manganese/Seleni/Zn 1 ml/ Folic Acid 1 mg/ Amino Acids/Electrolytes 2,011.2 mls @ 42 mls/hr IV .Q24H [facility] Stop: 05/22/18 15:47 Last Admin: 05/21/18 17:25 Dose: 42 mls/hr Fluconazole (Diflucan) 200 mg in 100 mls @ 100 mls/hr IV Q24 [facility] Last Admin: 05/21/18 10:25 Dose: 100 mls/hr Metronidazole (Flagyl) 500 mg in 100 mls @ 100 mls/hr IV Q8 [facility] Last Admin: 05/22/18 05:12 Dose: 100 mls/hr Potassium Chloride 40 meq/ (Sodium Chloride) 120 mls @ 100 mls/hr IV BOLUS X1 ONE Stop: 05/22/18 08:41 Potassium Chloride 40 meq/ (Sodium Chloride) 120 mls @ 100 mls/hr IV BOLUS X1 ONE Stop: 05/22/18 09:56 Vancomycin HCl 1,250 mg/ (Sodium Chloride) 275 mls @ 167 mls/hr IV X1 ONE Stop: 05/22/18 10:08 Insulin Human Lispro (Humalog Kwikpen (Bkc)) 0 unit SC Q6 [facility]; Protocol Last Admin: 05/22/18 05:12 Dose: 1 u Magnesium Hydroxide (Milk Of Magnesia) 30 ml NG DAILY PRN PRN Reason: Constipation Magnesium Oxide (Mag-Ox 400) 400 mg NG DAILY [facility] Last Admin: 05/21/18 10:25 Dose: 400 mg Ondansetron HCl (Zofran) 4 mg IV Q6H PRN PRN PRN Reason: Nausea Last Admin: 05/16/18 04:56 Dose: 4 mg Sodium Chloride () 5 - 15 ml IV UD PRN PRN Reason: SALINE FLUSH Last Admin: 05/22/18 05:11 Dose: 15 ml Sodium Hypochlorite (Dakins Solution 0.25% (1/2 Strength)) 1 applic TOPICAL BID [facility]; Protocol Last Admin: 05/21/18 21:39 Dose: 1 applicatio Vancomycin HCl () 500 mg NG Q6 [facility] Last Admin: 05/22/18 05:11 Dose: 500 mg Medical Necessity - Tobacco Use Smoking Status: Current every day smoker Tobacco Use: Cigarettes Assessment/Plan All Active Problems (Last Reviewed 05/04/18 @ 08:39 by Prasanth Pradhan MD) Gross hematuria (Acute) Overweight (Acute) MASOOD (obstructive sleep apnea) (Acute) Colovesical fistula (Acute) Large bowel anastomotic leak (Acute) Sepsis associated hypotension (Acute) Perforated abdominal viscus (Acute) Perforated viscus (Acute) Acute kidney injury (Acute) 62-year-old male with past medical history of hypertension, CAD, likely ischemic cardiomyopathy, EF 30%, nicotine dependence who was admitted on 05/02/[address] abdomen and pelvis without contrast showed 8.7 x 8.3 single large mass in the base of the bladder with marked urinary bladder distention air-fluid level suspicious of colovesical fistula. He underwent cystoscopy evacuation of blood clots, laser of a very large bladder stone, evacuation of bladder stone fragments, cystolitholapaxy on 05/03/2018. He subsequently sigmoid colon resection and repair of colovesical fistula on 05/07/2018. His post-op care was complicated with anastomotic leak and patient had exploratory laparotomy and creation of the end colostomy on 05/13/2018. Patient had exploratory laparotomy with jejunal repair on 05/17/2018. He remains in ICU, intubated, mechanical ventilator, on 2 pressors. 1. Septic shock secondary to anastomotic leak/intra-abdominal abscess, remains on 2 pressors, slight decrease in WBC, Repeat CT abdomen/pelvis showed colitis and patient has since been treated for c. diff Wound cultures growing, staph and enterococcus 2. Hypokalemia, K 2.9, replaced, recheck in am 3. OVI likely secondary to ischemic ATN, on slow HD, nephrology ff 4. Candiduria, status post 1 dose of 400mg fluconazole by ID, will continue per their recommendations 5. Hyperglycemia secondary to TPN, BS fairly controlled, continue on low-dose insulin sliding scale with Accu-Cheks 6. Left lower extremity DVT, developed after surgery, on IV heparin drip, continue per protocol 7. Colovesical fistula status post cystoscopy, evacuation of blood clots, laser of a very large bladder stone, evacuation of bladder stone fragments, cystolitholapaxy. colectomy, s/p hardwick pouch, Remains NPO, will follow general surgery recommendations, wound nurse following 8. s/p exploratory laparotomy on 05/17/18, pain is fairly controlled, on fentanyl drip, NG tube in situ, will follow up with general surgery recommendation 9. Acute hypoxic respiratory failure, remains on ventilatory support 10. CAD/ischemic cardiomyopathy, EF 30%, in acute exacerbation, fluid removal via HD 11. Hypertension, now hypotensive, will continue to monitor 12. A. fib with RVR, secondary to septic shock, HR is fairly controlled 13. MASOOD, noncompliant with CPAP 14. DVT PPx- On heparin drip Code Visit Inpatient E&M: [id number] Subs Hosp L2
[2018-05-22] MEDS: Menthol/Lanolin/Calamine/Znox 113 GM Tube 1 APPLIC TOPICAL ×2 (09:37→22:11)
[2018-05-22] MEDS: Docusate Sodium 100 MG/10 ML UDC NG ×2 (09:37→22:10)
--- NOTE | 2018-05-22 09:45 | PN.SURG_ITS ---
Patient Problems: Active and Suspected Problems (Last Reviewed 05/04/18 @ 08:39 by Prasanth Pradhan MD) Gross hematuria (Acute) Overweight (Acute) MASOOD (obstructive sleep apnea) (Acute) non-compliant with CPAP Peripheral arterial disease (Suspected) Colovesical fistula (Acute) Large bowel anastomotic leak (Acute) Sepsis associated hypotension (Acute) Perforated abdominal viscus (Acute) Perforated viscus (Acute) Acute kidney injury (Acute) Subjective: Patient evaluated this morning. He is intubated. Is able to communicate via [employer] board. He notes abdominal pain. He notes this is the same. Has not changed. He denies nausea. NG tube still intact with bilious drainage within the canister. No bowel sounds noted. Light brown/dark blood noted within the ostomy bag. Patient currently being treated for C Diff secondary to CT scan showing colitis. Wound culture preliminary shows C Albicans, Staph and GPC poss enterococcus. Infectious disease on the case. RICARDO drains intact with SA fluid noted. Slight erythema surrounding the drain sites. Patient was currently starting dialysis at the time of evaluation. - Physical Exam General: Alert, Cooperative HEENT: - - NG tube intact with bilious material within the canister Abdomen: Soft, Hypoactive Bowel Sounds, Distended - slightly, Tender - generalized, - - Open midline incision with retention sutures intact. slight amount of bleeding noted. inferior aspect of the open incision with notable tissue necrosis. Dakins solution is being used with packing. Stoma with edema noted. light brown/dark blood within the ostomy bag. RICARDO drains x 2 intact with SA fluid noted. Vital Signs Temp Pulse Resp BP Pulse Ox 97.5 F L 98 15 90/53 L 93 05/22/18 00:00 05/22/18 07:15 05/22/18 07:00 05/22/18 07:15 05/22/18 07:00 Oxygen Flow Rate (L/min) 60 Oxygen Delivery Method Mechanical Ventilator Weight: 263 lb 0.183 oz Body Mass Index (BMI) 29.9 Intake and Output for Last 24 Hours 05/20/18 05/21/18 05/22/18 23:59 23:59 23:59 Intake Total 5557.0 / 5557.0 2541.3 / 2541.3 1294.0 / 1294.0 Output Total 3265 / 3265 875 / 875 640 / 640 Balance 2292.0 / 2292.0 1666.3 / 1666.3 654.0 / 654.0 Microbiology Past 72 Hours 05/20/18 09:35 Gram Stain - Final Wound Drainage - Aerobic & Anaerobic Swabs Wound Culture - Preliminary Presumptive C albicans Staphylococcus species GPC Poss Enterococcus sp Anaerobic Culture - Preliminary Checking for anaerobes, further studies to follow. 05/17/18 10:25 Urine Culture - Final Urine Catheter - Maldonado Danya albicans 05/17/18 07:27 Blood Culture - Preliminary Blood Culture (Wb) - Anticubital Right No growth in 48 hours. 05/17/18 08:25 Blood Culture - Preliminary Blood Culture (Wb) - Central Line No growth in 48 hours. Laboratory Tests Past 24 Hrs 05/21/18 05/21/18 05/21/18 04:10 13:00 20:00 WBC RBC Hgb Hct MCV MCH MCHC RDW RDW Differential Plt Count MPV Neut % (Auto) Absolute Neuts (auto) Absolute Lymphs (auto) Total Counted Neutrophils % (Manual) Band Neutrophils % Lymphocytes % (Manual) Monocytes % (Manual) Eosinophils % (Manual) Metamyelocytes % Plasma Cell % (Manual) Other Cells % Nucleated RBC % Diff Path Review Reviewed Toxic Granulation Platelet Estimate Hypochromasia Anisocytosis Macrocytosis Absolute Retic APTT 88.4 H 96.6 H* Sodium Potassium Chloride Carbon Dioxide Anion Gap BUN Creatinine Estim Creat Clear Calc Est GFR (MDRD) Af Amer Est GFR (MDRD) Non-Af BUN/Creatinine Ratio Glucose Calcium Phosphorus Magnesium Random Vancomycin 05/22/18 05/22/18 05/22/18 00:15 04:00 04:00 WBC 30.8 H* RBC 2.91 L Hgb 10.0 L Hct 29.6 L MCV 101.7 H MCH 34.4 H MCHC 33.8 RDW 18.2 H RDW Differential 67.8 H Plt Count 289 MPV 11.9 Neut % (Auto) Not Reportable Absolute Neuts (auto) 25.9 H Absolute Lymphs (auto) 2.16 Total Counted 100 Neutrophils % (Manual) 55 Band Neutrophils % 26 H Lymphocytes % (Manual) 7 L Monocytes % (Manual) 6 Eosinophils % (Manual) 1 Metamyelocytes % 3 H Plasma Cell % (Manual) 1 Other Cells % 1 Nucleated RBC % 0.3 Diff Path Review May foll Toxic Granulation 1+ Platelet Estimate ADEQUATE Hypochromasia 1+ Anisocytosis 1+ Macrocytosis 1+ Absolute Retic 0.09 APTT 78.6 H Sodium 135 L Potassium 2.9 L Chloride 98 Carbon Dioxide 26.0 Anion Gap 11 BUN 34 H Creatinine 2.00 H Estim Creat Clear Calc 42.57 Est GFR (MDRD) Af Amer 44 L Est GFR (MDRD) Non-Af 36 L BUN/Creatinine Ratio 17.0 Glucose 179 H Calcium 6.9 L Phosphorus Magnesium 2.5 Random Vancomycin 05/22/18 05/22/18 05/22/18 04:00 04:00 05:38 WBC RBC Hgb Hct MCV MCH MCHC RDW RDW Differential Plt Count MPV Neut % (Auto) Absolute Neuts (auto) Absolute Lymphs (auto) Total Counted Neutrophils % (Manual) Band Neutrophils % Lymphocytes % (Manual) Monocytes % (Manual) Eosinophils % (Manual) Metamyelocytes % Plasma Cell % (Manual) Other Cells % Nucleated RBC % Diff Path Review Toxic Granulation Platelet Estimate Hypochromasia Anisocytosis Macrocytosis Absolute Retic APTT 66.0 H Sodium Potassium Chloride Carbon Dioxide Anion Gap BUN Creatinine Estim Creat Clear Calc Est GFR (MDRD) Af Amer Est GFR (MDRD) Non-Af BUN/Creatinine Ratio Glucose Calcium Phosphorus 4.0 Magnesium Random Vancomycin 14.4 POC Glucose 05/22/18 05/21/18 05/21/18 05:08 23:07 18:43 POC Glucose 184 H 176 H 144 H 05/21/18 12:44 POC Glucose 175 H Medical Necessity - Tobacco Use Smoking Status: Current every day smoker Tobacco Use: Cigarettes Assessment/Plan All Active Problems (Last Reviewed 05/04/18 @ 08:39 by Prasanth Pradhan MD) Gross hematuria (Acute) Overweight (Acute) MASOOD (obstructive sleep apnea) (Acute) Colovesical fistula (Acute) Large bowel anastomotic leak (Acute) Sepsis associated hypotension (Acute) Perforated abdominal viscus (Acute) Perforated viscus (Acute) Acute kidney injury (Acute) I am following this patient with Dr. Pradhan S/p sigmoid colectomy and cystoscopy for colovesical fistula in conjunction with Eddy 05/07. Anastomotic leak. S/p urgent exploratory laparotomy with end colostomy creation 05/13. S/p urgent exploratory laparotomy with repair of perf orated jejunum on 05/18. Labs reviewed. WBC has decreased to 30,000. Hgb decreasing. PTT noted to be 66.0. On Heparin drip. Potassium low. Currently being replaced. Creatinine remains elevated at 2.00. Dialysis again today. CT scan yesterday demonstrated colitis. Being treated for C Diff Tube feeds discontinued yesterday due to nausea. Continue TPN NG tube on HIWS with bilious fluid Patient with liquidy stool. Probable ileus from infection and multiple surgeries RICARDO drains intact with SA fluid noted. Will discuss patient with Dr. Pradhan We will continue to closely monitor this patient
[2018-05-22 09:54] LABS: Hematocrit 28.8 % (40-54); Hemoglobin 9.8 g/dl (13.0-16.5)
[2018-05-22 10:03] LABS: Partial Thromboplast Time 50.3 Seconds (24.1-36.2)
[2018-05-22 10:17] LABS: Hep B Surface Antibodies Non Reactive (.); Hepatitis B Core Ab Total Negative (Negative)
--- NOTE | 2018-05-22 10:59 | PCM.PN.REN ---
Patient Problems: Active and Suspected Problems (Last Reviewed 05/04/18 @ 08:39 by Prasanth Pradhan MD) Gross hematuria (Acute) Overweight (Acute) MASOOD (obstructive sleep apnea) (Acute) non-compliant with CPAP Peripheral arterial disease (Suspected) Colovesical fistula (Acute) Large bowel anastomotic leak (Acute) Sepsis associated hypotension (Acute) Perforated abdominal viscus (Acute) Perforated viscus (Acute) Acute kidney injury (Acute) Subjective: events noted some blood tinged drain from end colostomy, Hb stable pressor requirements better TPN 42 cc/hr WBC is better - Physical Exam HEENT: Atraumatic, PERRLA, EOMI, Normocephalic Neck: Supple, No JVD, Negative Carotid Bruits Lungs: Clear to auscultation, Normal air movement Cardiovascular: Regular rate, No murmurs Abdomen: Bowel Sounds Present, Soft, Non Tender Extremities: No edema, Capillary Refill Less than 3 Seconds Skin: No rashes, No breakdown Musculoskeletal: No Tenderness to Palpation of Joints or Extremities Vital Signs Temp Pulse Resp BP Pulse Ox 98.5 F 103 H 15 85/52 L 93 05/22/18 09:00 05/22/18 09:00 05/22/18 09:00 05/22/18 09:00 05/22/18 07:00 Oxygen Flow Rate (L/min) 60 Oxygen Delivery Method Mechanical Ventilator Weight: 119.3 kg Body Mass Index (BMI) 29.9 Intake and Output for Last 24 Hours 05/20/18 05/21/18 05/22/18 23:59 23:59 23:59 Intake Total 5557.0 / 5557.0 2541.3 / 2541.3 1294.0 / 1294.0 Output Total 3265 / 3265 875 / 875 640 / 640 Balance 2292.0 / 2292.0 1666.3 / 1666.3 654.0 / 654.0 Microbiology Past 72 Hours 05/17/18 07:27 Blood Culture - Final Blood Culture (Wb) - Anticubital Right No growth in 5 days. 05/17/18 08:25 Blood Culture - Final Blood Culture (Wb) - Central Line No growth in 5 days. 05/20/18 09:35 Gram Stain - Final Wound Drainage - Aerobic & Anaerobic Swabs Wound Culture - Preliminary Presumptive C albicans Staphylococcus species GPC Poss Enterococcus sp Anaerobic Culture - Preliminary Checking for anaerobes, further studies to follow. 05/17/18 10:25 Urine Culture - Final Urine Catheter - Maldonado Danya albicans Laboratory Tests Past 24 Hrs 05/20/18 05/21/18 05/21/18 19:00 13:00 20:00 WBC RBC Hgb Hct MCV MCH MCHC RDW RDW Differential Plt Count MPV Neut % (Auto) Absolute Neuts (auto) Absolute Lymphs (auto) Total Counted Neutrophils % (Manual) Band Neutrophils % Lymphocytes % (Manual) Monocytes % (Manual) Eosinophils % (Manual) Metamyelocytes % Plasma Cell % (Manual) Other Cells % Nucleated RBC % Diff Path Review Toxic Granulation Platelet Estimate Hypochromasia Anisocytosis Macrocytosis Absolute Retic APTT 88.4 H 96.6 H* Sodium Potassium Chloride Carbon Dioxide Anion Gap BUN Creatinine Estim Creat Clear Calc Est GFR (MDRD) Af Amer Est GFR (MDRD) Non-Af BUN/Creatinine Ratio Glucose Calcium Phosphorus Magnesium Random Vancomycin Hep Bs Antigen Negative Hep Bs Antibody Non Reactive Hep B Core Total Ab Negative 05/22/18 05/22/18 05/22/18 00:15 04:00 04:00 WBC 30.8 H* RBC 2.91 L Hgb 10.0 L Hct 29.6 L MCV 101.7 H MCH 34.4 H MCHC 33.8 RDW 18.2 H RDW Differential 67.8 H Plt Count 289 MPV 11.9 Neut % (Auto) Not Reportable Absolute Neuts (auto) 25.9 H Absolute Lymphs (auto) 2.16 Total Counted 100 Neutrophils % (Manual) 55 Band Neutrophils % 26 H Lymphocytes % (Manual) 7 L Monocytes % (Manual) 6 Eosinophils % (Manual) 1 Metamyelocytes % 3 H Plasma Cell % (Manual) 1 Other Cells % 1 Nucleated RBC % 0.3 Diff Path Review May foll Toxic Granulation 1+ Platelet Estimate ADEQUATE Hypochromasia 1+ Anisocytosis 1+ Macrocytosis 1+ Absolute Retic 0.09 APTT 78.6 H Sodium 135 L Potassium 2.9 L Chloride 98 Carbon Dioxide 26.0 Anion Gap 11 BUN 34 H Creatinine 2.00 H Estim Creat Clear Calc 42.57 Est GFR (MDRD) Af Amer 44 L Est GFR (MDRD) Non-Af 36 L BUN/Creatinine Ratio 17.0 Glucose 179 H Calcium 6.9 L Phosphorus Magnesium 2.5 Random Vancomycin Hep Bs Antigen Hep Bs Antibody Hep B Core Total Ab 05/22/18 05/22/18 05/22/18 04:00 04:00 05:38 WBC RBC Hgb Hct MCV MCH MCHC RDW RDW Differential Plt Count MPV Neut % (Auto) Absolute Neuts (auto) Absolute Lymphs (auto) Total Counted Neutrophils % (Manual) Band Neutrophils % Lymphocytes % (Manual) Monocytes % (Manual) Eosinophils % (Manual) Metamyelocytes % Plasma Cell % (Manual) Other Cells % Nucleated RBC % Diff Path Review Toxic Granulation Platelet Estimate Hypochromasia Anisocytosis Macrocytosis Absolute Retic APTT 66.0 H Sodium Potassium Chloride Carbon Dioxide Anion Gap BUN Creatinine Estim Creat Clear Calc Est GFR (MDRD) Af Amer Est GFR (MDRD) Non-Af BUN/Creatinine Ratio Glucose Calcium Phosphorus 4.0 Magnesium Random Vancomycin 14.4 Hep Bs Antigen Hep Bs Antibody Hep B Core Total Ab 05/22/18 05/22/18 09:45 09:45 WBC RBC Hgb 9.8 L Hct 28.8 L MCV MCH MCHC RDW RDW Differential Plt Count MPV Neut % (Auto) Absolute Neuts (auto) Absolute Lymphs (auto) Total Counted Neutrophils % (Manual) Band Neutrophils % Lymphocytes % (Manual) Monocytes % (Manual) Eosinophils % (Manual) Metamyelocytes % Plasma Cell % (Manual) Other Cells % Nucleated RBC % Diff Path Review Toxic Granulation Platelet Estimate Hypochromasia Anisocytosis Macrocytosis Absolute Retic APTT 50.3 H Sodium Potassium Chloride Carbon Dioxide Anion Gap BUN Creatinine Estim Creat Clear Calc Est GFR (MDRD) Af Amer Est GFR (MDRD) Non-Af BUN/Creatinine Ratio Glucose Calcium Phosphorus Magnesium Random Vancomycin Hep Bs Antigen Hep Bs Antibody Hep B Core Total Ab POC Glucose 05/22/18 05/21/18 05/21/18 05:08 23:07 18:43 POC Glucose 184 H 176 H 144 H 05/21/18 12:44 POC Glucose 175 H Medical Necessity - Tobacco Use Smoking Status: Current every day smoker Tobacco Use: Cigarettes Assessment/Plan All Active Problems (Last Reviewed 05/04/18 @ 08:39 by Prasanth Pradhan MD) Gross hematuria (Acute) Overweight (Acute) MASOOD (obstructive sleep apnea) (Acute) Colovesical fistula (Acute) Large bowel anastomotic leak (Acute) Sepsis associated hypotension (Acute) Perforated abdominal viscus (Acute) Perforated viscus (Acute) Acute kidney injury (Acute) OVI. likely ATN from sepsis. he was admitted with colovesical fistula, s/p sigmoid resection, fistula closure with laparotomy. repeat exploration due to anastamotic leak and repair of jejunal perforation did pretty well on HD yesterday able to remove about 4.4 L with slow dialysis UF today, will try for fluid removal as tolerated Hypokalemia. UF only today, replete K IV or through TPN
--- NOTE | 2018-05-22 12:00 | NURSING ---
dialysis complete. per RN 1.5l removed
[2018-05-22] MEDS: Heparin 10,000 UNITS/10 ML Vial IV (12:22)
--- NOTE | 2018-05-22 12:25 | PCM.PN.ID ---
Patient Problems: Active and Suspected Problems (Last Reviewed 05/04/18 @ 08:39 by Prasanth Pradhan MD) Gross hematuria (Acute) Overweight (Acute) MASOOD (obstructive sleep apnea) (Acute) non-compliant with CPAP Peripheral arterial disease (Suspected) Colovesical fistula (Acute) Large bowel anastomotic leak (Acute) Sepsis associated hypotension (Acute) Perforated abdominal viscus (Acute) Perforated viscus (Acute) Acute kidney injury (Acute) Subjective: Feeling about the same. No fever. Still on pressors. - Physical Exam General: Cooperative Lungs: Diminished Cardiovascular: Tachycardic Abdomen: Soft, Distended, Tender Skin: No rashes Vital Signs Temp Pulse Resp BP Pulse Ox 98.5 F 104 H 18 93/57 L 90 05/22/18 09:00 05/22/18 11:18 05/22/18 11:18 05/22/18 10:45 05/22/18 11:18 Oxygen Flow Rate (L/min) 60 Oxygen Delivery Method Mechanical Ventilator Weight: 119.3 kg Body Mass Index (BMI) 29.9 Intake and Output for Last 24 Hours 05/20/18 05/21/18 05/22/18 23:59 23:59 23:59 Intake Total 5557.0 / 5557.0 2541.3 / 2541.3 1324.0 / 1324.0 Output Total 3265 / 3265 875 / 875 640 / 640 Balance 2292.0 / 2292.0 1666.3 / 1666.3 684.0 / 684.0 Microbiology Past 72 Hours 05/17/18 07:27 Blood Culture - Final Blood Culture (Wb) - Anticubital Right No growth in 5 days. 05/17/18 08:25 Blood Culture - Final Blood Culture (Wb) - Central Line No growth in 5 days. 05/20/18 09:35 Gram Stain - Final Wound Drainage - Aerobic & Anaerobic Swabs Wound Culture - Preliminary Presumptive C albicans Staphylococcus species GPC Poss Enterococcus sp Anaerobic Culture - Preliminary Checking for anaerobes, further studies to follow. 05/17/18 10:25 Urine Culture - Final Urine Catheter - Maldonado Danya albicans Laboratory Tests Past 24 Hrs 05/20/18 05/21/18 05/21/18 19:00 13:00 20:00 WBC RBC Hgb Hct MCV MCH MCHC RDW RDW Differential Plt Count MPV Neut % (Auto) Absolute Neuts (auto) Absolute Lymphs (auto) Total Counted Neutrophils % (Manual) Band Neutrophils % Lymphocytes % (Manual) Monocytes % (Manual) Eosinophils % (Manual) Metamyelocytes % Plasma Cell % (Manual) Other Cells % Nucleated RBC % Diff Path Review Toxic Granulation Platelet Estimate Hypochromasia Anisocytosis Macrocytosis Absolute Retic APTT 88.4 H 96.6 H* Sodium Potassium Chloride Carbon Dioxide Anion Gap BUN Creatinine Estim Creat Clear Calc Est GFR (MDRD) Af Amer Est GFR (MDRD) Non-Af BUN/Creatinine Ratio Glucose Calcium Phosphorus Magnesium Random Vancomycin Hep Bs Antigen Negative Hep Bs Antibody Non Reactive Hep B Core Total Ab Negative 05/22/18 05/22/18 05/22/18 00:15 04:00 04:00 WBC 30.8 H* RBC 2.91 L Hgb 10.0 L Hct 29.6 L MCV 101.7 H MCH 34.4 H MCHC 33.8 RDW 18.2 H RDW Differential 67.8 H Plt Count 289 MPV 11.9 Neut % (Auto) Not Reportable Absolute Neuts (auto) 25.9 H Absolute Lymphs (auto) 2.16 Total Counted 100 Neutrophils % (Manual) 55 Band Neutrophils % 26 H Lymphocytes % (Manual) 7 L Monocytes % (Manual) 6 Eosinophils % (Manual) 1 Metamyelocytes % 3 H Plasma Cell % (Manual) 1 Other Cells % 1 Nucleated RBC % 0.3 Diff Path Review May foll Toxic Granulation 1+ Platelet Estimate ADEQUATE Hypochromasia 1+ Anisocytosis 1+ Macrocytosis 1+ Absolute Retic 0.09 APTT 78.6 H Sodium 135 L Potassium 2.9 L Chloride 98 Carbon Dioxide 26.0 Anion Gap 11 BUN 34 H Creatinine 2.00 H Estim Creat Clear Calc 42.57 Est GFR (MDRD) Af Amer 44 L Est GFR (MDRD) Non-Af 36 L BUN/Creatinine Ratio 17.0 Glucose 179 H Calcium 6.9 L Phosphorus Magnesium 2.5 Random Vancomycin Hep Bs Antigen Hep Bs Antibody Hep B Core Total Ab 05/22/18 05/22/18 05/22/18 04:00 04:00 05:38 WBC RBC Hgb Hct MCV MCH MCHC RDW RDW Differential Plt Count MPV Neut % (Auto) Absolute Neuts (auto) Absolute Lymphs (auto) Total Counted Neutrophils % (Manual) Band Neutrophils % Lymphocytes % (Manual) Monocytes % (Manual) Eosinophils % (Manual) Metamyelocytes % Plasma Cell % (Manual) Other Cells % Nucleated RBC % Diff Path Review Toxic Granulation Platelet Estimate Hypochromasia Anisocytosis Macrocytosis Absolute Retic APTT 66.0 H Sodium Potassium Chloride Carbon Dioxide Anion Gap BUN Creatinine Estim Creat Clear Calc Est GFR (MDRD) Af Amer Est GFR (MDRD) Non-Af BUN/Creatinine Ratio Glucose Calcium Phosphorus 4.0 Magnesium Random Vancomycin 14.4 Hep Bs Antigen Hep Bs Antibody Hep B Core Total Ab 05/22/18 05/22/18 09:45 09:45 WBC RBC Hgb 9.8 L Hct 28.8 L MCV MCH MCHC RDW RDW Differential Plt Count MPV Neut % (Auto) Absolute Neuts (auto) Absolute Lymphs (auto) Total Counted Neutrophils % (Manual) Band Neutrophils % Lymphocytes % (Manual) Monocytes % (Manual) Eosinophils % (Manual) Metamyelocytes % Plasma Cell % (Manual) Other Cells % Nucleated RBC % Diff Path Review Toxic Granulation Platelet Estimate Hypochromasia Anisocytosis Macrocytosis Absolute Retic APTT 50.3 H Sodium Potassium Chloride Carbon Dioxide Anion Gap BUN Creatinine Estim Creat Clear Calc Est GFR (MDRD) Af Amer Est GFR (MDRD) Non-Af BUN/Creatinine Ratio Glucose Calcium Phosphorus Magnesium Random Vancomycin Hep Bs Antigen Hep Bs Antibody Hep B Core Total Ab POC Glucose 05/22/18 05/21/18 05/21/18 05:08 23:07 18:43 POC Glucose 184 H 176 H 144 H 05/21/18 12:44 POC Glucose 175 H Medical Necessity - Tobacco Use Smoking Status: Current every day smoker Tobacco Use: Cigarettes Route of nutrition/ use of supplements: [] Nutritional Intake: [] IV Site: [] Maldonado Catheter: [] - Assessment/Plan Antibiotics: [] Assessment/Plan: [] Active and Suspected Problems (Last Reviewed 05/04/18 @ 08:39 by Prasanth Pradhan MD) Gross hematuria (Acute) Overweight (Acute) MASOOD (obstructive sleep apnea) (Acute) non-compliant with CPAP Peripheral arterial disease (Suspected) Colovesical fistula (Acute) Large bowel anastomotic leak (Acute) Sepsis associated hypotension (Acute) Septic shock with recent abd surgeries for colovesicular fistula on 05/03 and anastamotic leak on 05/13 and 05/18. On vanc/meropenem. Now with rising wbc, Cr, and worsened pressor requirements. Had some danya in urine. 05/20 added fluconazole. Now on HD. CT done 05/21, showed worsened colitis, so added empiric po vanc and iv flagyl for cdiff coverage. Will check stool for cdiff. Wbc improved today. Will follow
[2018-05-22] MEDS: Magnesium Oxide 400 MG Tablet NG (12:26)
--- NOTE | 2018-05-22 12:27 | CASEMGMT ---
Pt remains on a ventilator at this time. SW will continue to follow for discharge needs. If pt needs dialysis and/or TPN at discharge, he will not be able to go to TCU. JACKIE Fagan, MANAGER IN TRAINING
--- NOTE | 2018-05-22 13:13 | PCM.RX.CS ---
Consult Pharmacy has been consulted to manage selected antiobiotic: Vancomycin Type of Consult: Follow-up Suspected Infection: Other Labs: Sodium 135 mmol/L (136-145) L 05/22/18 04:00 Potassium 2.9 mmol/L (3.5-5.1) L 05/22/18 04:00 Chloride 98 mmol/L (98-107) 05/22/18 04:00 Carbon Dioxide 26.0 mmol/L (21.0-32.0) 05/22/18 04:00 Anion Gap 11 (5-15) 05/22/18 04:00 BUN 34 mg/dL (7-18) H 05/22/18 04:00 Creatinine 2.00 mg/dL (0.70-1.30) H 05/22/18 04:00 Est GFR (MDRD) Af Amer 44 mL/min (>60) L 05/22/18 04:00 Est GFR (MDRD) Non-Af 36 mL/min (>60) L 05/22/18 04:00 BUN/Creatinine Ratio 17.0 RATIO (10-20) 05/22/18 04:00 Glucose 179 mg/dL (74-106) H 05/22/18 04:00 Vancomycin Trough 21.7 ug/mL (5.0-15.0) H 05/19/18 12:45 Random Vancomycin 14.4 ug/mL (0.0-15.0) 05/22/18 05:38 Microbiology: Microbiology 05/17/18 07:27 Blood Culture (Wb) - Anticubital Right Blood Culture - Final No growth in 5 days. 05/17/18 08:25 Blood Culture (Wb) - Central Line Blood Culture - Final No growth in 5 days. 05/20/18 09:35 Wound Drainage - Aerobic & Anaerobic Swabs Gram Stain - Final 05/20/18 09:35 Wound Drainage - Aerobic & Anaerobic Swabs Wound Culture - Preliminary Presumptive C albicans Staphylococcus species GPC Poss Enterococcus sp 05/20/18 09:35 Wound Drainage - Aerobic & Anaerobic Swabs Anaerobic Culture - Preliminary Checking for anaerobes, further studies to follow. 05/17/18 10:25 Urine Catheter - Maldonado Urine Culture - Final Danya albicans 05/12/18 17:05 Blood Culture (Wb) - Anticubital Left Blood Culture - Final No growth in 5 days. 02/24/19 17:10 Blood Culture (Wb) - Left Hand Blood Culture - Final No growth in 5 days. Estimated Creatinine Clearance: Dialysis Goal Trough: 15-20 mcg/mL Pharmacy Plan for Drug Dosing: Discussed with Dr Woo due to random nature, times, and flow of dialysis sessions. Dr Woo ordered for no dose on 05/21, 1250mg IV x1 05/22, recheck random level 05/23 in the morning and reassess again at that time. Pharmacy Service will continue to monitor and adjust dosing as required. Follow-Up Labs: Trough Vancomycin - RANDOM 05/23 @ 0600
[2018-05-22 13:25] LABS: Bedside Glucose 179 mg/dL (70-110)
--- NOTE | 2018-05-22 14:37 | DIALYSIS ---
Hemodialysis today for 2.5 hours (IUF) 1500ml removed. Tolerated well after some initial titration of vasopressors.
[2018-05-22 14:50] LABS: Hematocrit 29.3 % (40-54); Hemoglobin 9.8 g/dl (13.0-16.5); Mean Corp Hgb Conc 33.4 g/gl (32-36); Mean Corpuscular Hgb 33.9 pg (27.0-32.0); Mean Corpuscular Volume 101.4 fL (80-94); Mean Platelet Vol. 11.7 fl (6.2-12.0); Platelet Count 256 K/mm3 (150-450); RBC Distribution Width CV 18.3 % (11.6-14.6); Red Blood Count 2.89 M/mm3 (4.6-6.2); White Blood Count 33.4 K/mm3 (4.4-11.0)
[2018-05-22 14:56] LABS: Differential Indicated MANUAL DIFF; POSITIVE COUNT YES; POSITIVE DIFFERENTIAL YES; POSITIVE MORPHOLOGY YES
[2018-05-22 15:11] LABS: Lymphocyte 3 % (19-41); Metamyelocyte 3 % (0-1); Monocyte 5 % (0-10); Myelocyte 1 (0-0); Neutrophil-Band 7 % (0-5); Neutrophil-Segmented 76 % (47-70); Other WBC Type 1 %; Plasma Cell 3 %; Promyelocyte 1 (0-0); Total Cells Counted 100 (MANUAL DIFF)
[2018-05-22 15:12] LABS: Platelet Morphology LARGE; Toxic Granulation 3+
[2018-05-22 15:15] LABS: Anisocytosis RARE; Macrocytosis 1+
[2018-05-22 15:16] LABS: Platelet Estimate ADEQUATE (ADEQ); Red Cell Morphology N CHROM NORMAL (NORM C&C)
[2018-05-22 15:18] LABS: Absolute Neutrophil Count 26.9 X10^3/uL (2.0-7.7); Neutrophil # 26.93 X10^3/uL (2.7-7.7)
[2018-05-22 15:19] LABS: Absolute Lymphocyte Count 0.97 X10^3/ul (0.83-4.51); Lymphocyte # 0.97 X10^3/ul (4.0)
[2018-05-22] MEDS: CHLORHEXIDINE GLUC 2% CLOTH 1 EACH TOWELETTE TOPICAL (17:15)
[2018-05-22 19:06] LABS: Bedside Glucose 166 mg/dL (70-110)
--- NOTE | 2018-05-22 19:33 | NURSING ---
ed re chronic illness deferred till acute illness resolving
[2018-05-22] MEDS: Chlorhexidine 15 ML PO (22:10)
[2018-05-22] MEDS: Atorvastatin Calcium 40 MG Tablet NG (22:10)
[2018-05-22 23:26] LABS: Bedside Glucose 167 mg/dL (70-110)
[2018-05-23] VITALS (51 sets, daily range): BP systolic 68–103; BP diastolic 43–67; PULSE 100–128; RESP 13–24; TEMP 36.8–38.4; O2SAT 91–98
[2018-05-23] MEDS: fentaNYL drip 100 ML 5 MCG IV ×3 (02:19→19:59)
[2018-05-23] MEDS: CHLORHEXIDINE GLUC 2% CLOTH 1 EACH TOWELETTE TOPICAL (03:06)
[2018-05-23 04:45] LABS: Anion Gap 11 (5-15); BUN 48 mg/dL (7-18); BUN/Creat Ratio 15.8 RATIO (10-20); Chloride 102 mmol/L (98-107); Creatinine, Serum 3.04 mg/dL (0.70-1.30); EST Glomerular Filtration Rate 22 mL/min (>60); Est Glom Filt Rate - Afr Amer 27 mL/min (>60); Estimated Creatinine Clearance 28.01 ml/min; Glucose 163 mg/dL (74-106); Magnesium 2.6 mg/dL (1.6-2.6); Potassium 3.1 mmol/L (3.5-5.1); Sodium Level 137 mmol/L (136-145)
[2018-05-23 04:57] LABS: Vancomycin, Random Level 22.1 ug/mL (0.0-15.0)
[2018-05-23] MEDS: 0.9% NaCl Peripheral Flush Adult/Peds IV ×2 (05:42→10:39)
[2018-05-23] MEDS: Insulin Lispro 100 UNIT/ML INSULN.PEN SC ×2 (05:43→23:44)
--- NOTE | 2018-05-23 06:21 | PCM.PN.INT ---
Subjective: The patient was seen and examined at the bedside this morning. Events from the last 24 hours have been reviewed. The patient remains afebrile. He continues to require vasopressin and 10 mcg of Levophed to maintain hemodynamic stability. While his PEEP remains at 10, his FiO2 was able to be weaned overnight to 50% this morning. The patient continues to have no urine output. He remains on a continuous fentanyl drip at 125 mcg. The patient's continuous heparin infusion was discontinued yesterday. There are tentative plans for the patient to undergo endoscopic evaluation at the bedside this morning. The patient is currently documented to be overall net +14.5 L for the admission. He did undergo hemodialysis yesterday for 2.5 hours with 1.5 L of fluid removed. This morning, the patient underwent upper endoscopy by Dr. Pradhan at the bedside. A CorPak was subsequently placed. Objective: The patient's most recent lab work, culture data and imaging studies have all been personally reviewed. A transesophageal echocardiogram from August 2017 revealed evidence of a moderately severe global LV systolic dysfunction with an ejection fraction of 30%. There is also evidence of moderate global RV systolic dysfunction. There was moderate aortic valve stenosis. General: Alert, No apparent distress, - - Remains intubated, sedated and mechanically ventilated. HEENT: Atraumatic, PERRLA, Normocephalic, - - CorPak now present Oral: Moist Mucosa, - - Endotracheal tube in place Neck: Supple, No Nodes, Trachea Midline, - - Right IJ temporary hemodialysis catheter and left sided triple-lumen catheter in place Lungs: No rhonchi, No wheeze, No rales, Diminished Cardiovascular: Normal S1, Normal S2, No murmurs, Tachycardic Abdomen: Bowel Sounds Present, - - No significant change from previous with abdominal wound present, viable ostomy, retention sutures and RICARDO drains. Extremities: No clubbing, No cyanosis, - - Diffuse anasarca Skin: - - No significant change from previous Musculoskeletal: No Tenderness to Palpation of Joints or Extremities Lymphatic: No Cervical, Supraclavicular, or Inguinal Adenopathy Neurological: Neuro grossly intact Psych/Mental Status: Flat Affect, Depressed Vital Signs Temp Pulse Resp BP Pulse Ox 36.8 C 115 H 17 96/65 95 05/23/18 00:00 05/23/18 06:00 05/23/18 06:00 05/23/18 06:00 05/23/18 06:00 Oxygen Flow Rate (L/min) 60 Oxygen Delivery Method Mechanical Ventilator Weight: 257 lb 15.053 oz Body Mass Index (BMI) 29.9 Intake and Output for Last 24 Hours 05/21/18 05/22/18 05/23/18 23:59 23:59 23:59 Intake Total 2541.3 / 2541.3 3816.0 / 3816.0 546.4 / 546.4 Output Total 875 / 875 5475 / 5475 470 / 470 Balance 1666.3 / 1666.3 -1659.0 / -1659.0 76.4 / 76.4 Labs (Last 48 Hours) 05/20/18 05/21/18 05/21/18 19:00 04:10 06:20 WBC RBC Hgb Hct MCV MCH MCHC RDW RDW Differential Plt Count MPV Neut % (Auto) Absolute Neuts (auto) Absolute Lymphs (auto) Total Counted Neutrophils % (Manual) Band Neutrophils % Lymphocytes % (Manual) Monocytes % (Manual) Eosinophils % (Manual) Metamyelocytes % Myelocytes % Promyelocytes % Plasma Cell % (Manual) Other Cells % Nucleated RBC % Diff Path Review Reviewed Toxic Granulation Platelet Estimate Plt Morphology Comment RBC Morphology Hypochromasia Anisocytosis Macrocytosis Absolute Retic APTT Sodium Potassium Chloride Carbon Dioxide Anion Gap BUN Creatinine Estim Creat Clear Calc Est GFR (MDRD) Af Amer Est GFR (MDRD) Non-Af BUN/Creatinine Ratio Glucose Calcium Phosphorus Magnesium Random Vancomycin 19.6 H Hep Bs Antigen Negative Hep Bs Antibody Non Reactive Hep B Core Total Ab Negative POC Glucose 05/21/18 05/21/18 05/21/18 06:20 12:44 13:00 WBC RBC Hgb Hct MCV MCH MCHC RDW RDW Differential Plt Count MPV Neut % (Auto) Absolute Neuts (auto) Absolute Lymphs (auto) Total Counted Neutrophils % (Manual) Band Neutrophils % Lymphocytes % (Manual) Monocytes % (Manual) Eosinophils % (Manual) Metamyelocytes % Myelocytes % Promyelocytes % Plasma Cell % (Manual) Other Cells % Nucleated RBC % Diff Path Review Toxic Granulation Platelet Estimate Plt Morphology Comment RBC Morphology Hypochromasia Anisocytosis Macrocytosis Absolute Retic APTT 103.1 H* 88.4 H Sodium Potassium Chloride Carbon Dioxide Anion Gap BUN Creatinine Estim Creat Clear Calc Est GFR (MDRD) Af Amer Est GFR (MDRD) Non-Af BUN/Creatinine Ratio Glucose Calcium Phosphorus Magnesium Random Vancomycin Hep Bs Antigen Hep Bs Antibody Hep B Core Total Ab POC Glucose 175 H 05/21/18 05/21/18 05/21/18 18:43 20:00 23:07 WBC RBC Hgb Hct MCV MCH MCHC RDW RDW Differential Plt Count MPV Neut % (Auto) Absolute Neuts (auto) Absolute Lymphs (auto) Total Counted Neutrophils % (Manual) Band Neutrophils % Lymphocytes % (Manual) Monocytes % (Manual) Eosinophils % (Manual) Metamyelocytes % Myelocytes % Promyelocytes % Plasma Cell % (Manual) Other Cells % Nucleated RBC % Diff Path Review Toxic Granulation Platelet Estimate Plt Morphology Comment RBC Morphology Hypochromasia Anisocytosis Macrocytosis Absolute Retic APTT 96.6 H* Sodium Potassium Chloride Carbon Dioxide Anion Gap BUN Creatinine Estim Creat Clear Calc Est GFR (MDRD) Af Amer Est GFR (MDRD) Non-Af BUN/Creatinine Ratio Glucose Calcium Phosphorus Magnesium Random Vancomycin Hep Bs Antigen Hep Bs Antibody Hep B Core Total Ab POC Glucose 144 H 176 H 05/22/18 05/22/18 05/22/18 00:15 04:00 04:00 WBC 30.8 H* RBC 2.91 L Hgb 10.0 L Hct 29.6 L MCV 101.7 H MCH 34.4 H MCHC 33.8 RDW 18.2 H RDW Differential 67.8 H Plt Count 289 MPV 11.9 Neut % (Auto) Not Reportable Absolute Neuts (auto) 25.9 H Absolute Lymphs (auto) 2.16 Total Counted 100 Neutrophils % (Manual) 55 Band Neutrophils % 26 H Lymphocytes % (Manual) 7 L Monocytes % (Manual) 6 Eosinophils % (Manual) 1 Metamyelocytes % 3 H Myelocytes % Promyelocytes % Plasma Cell % (Manual) 1 Other Cells % 1 Nucleated RBC % 0.3 Diff Path Review May foll Toxic Granulation 1+ Platelet Estimate ADEQUATE Plt Morphology Comment RBC Morphology Hypochromasia 1+ Anisocytosis 1+ Macrocytosis 1+ Absolute Retic 0.09 APTT 78.6 H Sodium 135 L Potassium 2.9 L Chloride 98 Carbon Dioxide 26.0 Anion Gap 11 BUN 34 H Creatinine 2.00 H Estim Creat Clear Calc 42.57 Est GFR (MDRD) Af Amer 44 L Est GFR (MDRD) Non-Af 36 L BUN/Creatinine Ratio 17.0 Glucose 179 H Calcium 6.9 L Phosphorus Magnesium 2.5 Random Vancomycin Hep Bs Antigen Hep Bs Antibody Hep B Core Total Ab POC Glucose 05/22/18 05/22/18 05/22/18 04:00 04:00 05:08 WBC RBC Hgb Hct MCV MCH MCHC RDW RDW Differential Plt Count MPV Neut % (Auto) Absolute Neuts (auto) Absolute Lymphs (auto) Total Counted Neutrophils % (Manual) Band Neutrophils % Lymphocytes % (Manual) Monocytes % (Manual) Eosinophils % (Manual) Metamyelocytes % Myelocytes % Promyelocytes % Plasma Cell % (Manual) Other Cells % Nucleated RBC % Diff Path Review Toxic Granulation Platelet Estimate Plt Morphology Comment RBC Morphology Hypochromasia Anisocytosis Macrocytosis Absolute Retic APTT 66.0 H Sodium Potassium Chloride Carbon Dioxide Anion Gap BUN Creatinine Estim Creat Clear Calc Est GFR (MDRD) Af Amer Est GFR (MDRD) Non-Af BUN/Creatinine Ratio Glucose Calcium Phosphorus 4.0 Magnesium Random Vancomycin Hep Bs Antigen Hep Bs Antibody Hep B Core Total Ab POC Glucose 184 H 05/22/18 05/22/18 05/22/18 05:38 09:45 09:45 WBC RBC Hgb 9.8 L Hct 28.8 L MCV MCH MCHC RDW RDW Differential Plt Count MPV Neut % (Auto) Absolute Neuts (auto) Absolute Lymphs (auto) Total Counted Neutrophils % (Manual) Band Neutrophils % Lymphocytes % (Manual) Monocytes % (Manual) Eosinophils % (Manual) Metamyelocytes % Myelocytes % Promyelocytes % Plasma Cell % (Manual) Other Cells % Nucleated RBC % Diff Path Review Toxic Granulation Platelet Estimate Plt Morphology Comment RBC Morphology Hypochromasia Anisocytosis Macrocytosis Absolute Retic APTT 50.3 H Sodium Potassium Chloride Carbon Dioxide Anion Gap BUN Creatinine Estim Creat Clear Calc Est GFR (MDRD) Af Amer Est GFR (MDRD) Non-Af BUN/Creatinine Ratio Glucose Calcium Phosphorus Magnesium Random Vancomycin 14.4 Hep Bs Antigen Hep Bs Antibody Hep B Core Total Ab POC Glucose 05/22/18 05/22/18 05/22/18 13:01 14:25 18:34 WBC 33.4 H* RBC 2.89 L Hgb 9.8 L Hct 29.3 L MCV 101.4 H MCH 33.9 H MCHC 33.4 RDW 18.3 H RDW Differential 68.0 H Plt Count 256 MPV 11.7 Neut % (Auto) Not Reportable Absolute Neuts (auto) 26.9 H Absolute Lymphs (auto) 0.97 Total Counted 100 Neutrophils % (Manual) 76 H Band Neutrophils % 7 H Lymphocytes % (Manual) 3 L Monocytes % (Manual) 5 Eosinophils % (Manual) Metamyelocytes % 3 H Myelocytes % 1 H Promyelocytes % 1 H Plasma Cell % (Manual) 3 Other Cells % 1 Nucleated RBC % Diff Path Review May foll Toxic Granulation 3+ Platelet Estimate ADEQUATE Plt Morphology Comment LARGE RBC Morphology N CHROM Hypochromasia Anisocytosis RARE Macrocytosis 1+ Absolute Retic APTT Sodium Potassium Chloride Carbon Dioxide Anion Gap BUN Creatinine Estim Creat Clear Calc Est GFR (MDRD) Af Amer Est GFR (MDRD) Non-Af BUN/Creatinine Ratio Glucose Calcium Phosphorus Magnesium Random Vancomycin Hep Bs Antigen Hep Bs Antibody Hep B Core Total Ab POC Glucose 179 H 166 H 05/22/18 05/23/18 05/23/18 23:07 04:10 04:10 WBC RBC Hgb Hct MCV MCH MCHC RDW RDW Differential Plt Count MPV Neut % (Auto) Absolute Neuts (auto) Absolute Lymphs (auto) Total Counted Neutrophils % (Manual) Band Neutrophils % Lymphocytes % (Manual) Monocytes % (Manual) Eosinophils % (Manual) Metamyelocytes % Myelocytes % Promyelocytes % Plasma Cell % (Manual) Other Cells % Nucleated RBC % Diff Path Review Toxic Granulation Platelet Estimate Plt Morphology Comment RBC Morphology Hypochromasia Anisocytosis Macrocytosis Absolute Retic APTT Sodium 137 Potassium 3.1 L Chloride 102 Carbon Dioxide 24.0 Anion Gap 11 BUN 48 H Creatinine 3.04 H Estim Creat Clear Calc 28.01 Est GFR (MDRD) Af Amer 27 L Est GFR (MDRD) Non-Af 22 L BUN/Creatinine Ratio 15.8 Glucose 163 H Calcium 7.0 L Phosphorus Magnesium 2.6 Random Vancomycin 22.1 H Hep Bs Antigen Hep Bs Antibody Hep B Core Total Ab POC Glucose 167 H Microbiology 05/22/18 13:10 Stool C. difficile DNA Amplification - Final 05/17/18 07:27 Blood Culture (Wb) - Anticubital Right Blood Culture - Final No growth in 5 days. 05/17/18 08:25 Blood Culture (Wb) - Central Line Blood Culture - Final No growth in 5 days. 05/20/18 09:35 Wound Drainage - Aerobic & Anaerobic Swabs Gram Stain - Final 05/20/18 09:35 Wound Drainage - Aerobic & Anaerobic Swabs Wound Culture - Preliminary Presumptive C albicans Staphylococcus species GPC Poss Enterococcus sp 05/20/18 09:35 Wound Drainage - Aerobic & Anaerobic Swabs Anaerobic Culture - Preliminary Checking for anaerobes, further studies to follow. Clinical Impression(s) from Imaging Studies Abdomen/Pelvis CT 05/03/18 07:41 IMPRESSION: Large bladder mass as described causing a marked degree of bladder dilatation. Air is seen within the urinary bladder. This may be related to Maldonado catheter manipulation. If not, a colovesical fistula should be ruled out. Electronically Signed: Johnny Neil MD at 9:02 EST , Service support , Chest X-Ray 05/03/18 09:37 IMPRESSION: Mild cardiomegaly. Electronically Signed: Johnny Neil MD at 10:05 EST , Service support , Abdomen/Pelvis CT 05/04/18 07:00 IMPRESSION: Evaluation was performed to evaluate for a colovesical fistula. Please note that a study prior to injection of rectal contrast was not performed. This somewhat limits evaluation. There is hyperdense material in the bladder at time of prior study May 03, 2018 which most likely represented a hematoma. On today's examination again noted is gas as well as hyperdense material within the bladder. There is intimate association with a segment of the sigmoid colon with the urinary bladder. There is a small focus of gas within the bladder at this region. Findings would be concerning for a colovesical fistula. Correlate with urinalysis. Interval placement of a Maldonado catheter. The previously noted bladder hyperdense masslike lesion has significantly decreased in size. Likely representing a large hematoma. Recommend follow-up to ensure resolution. Diverticulosis is present. There is some thickening of the sigmoid colon with some stranding concerning for diverticulitis. Infrarenal abdominal aortic aneurysm. Decreasing right hydronephrosis. Evidence of prior granulomatous disease. Bilateral nephrolithiasis. Electronically Signed: Dawood Marksford, at 7:57 EST Tel , Service support , Chest X-Ray 05/10/18 05:55 IMPRESSION: Atelectasis and/or infiltrates at the lung bases worse on the left side with blunting of left costophrenic angle. Electronically Signed: Johnny Neil MD at 9:43 EST , Service support , Chest X-Ray 05/12/18 16:45 IMPRESSION: 1. Decreased bibasilar atelectasis. No organizing infiltrates seen. 2. Gaseous distention of bowel in the upper abdomen, incompletely visualized. 3. Mild cardiomegaly. Electronically Signed: Tunde Cole MD at 17:03 EST , Service support , Abdomen/Pelvis CT 05/13/18 10:28 IMPRESSION: Small bilateral pleural effusions with bibasilar infiltrates and/or atelectasis. Small amount of perihepatic as well as perisplenic fluid as well as fluid in the pelvis. Small amount of fluid in the Colic gutters. Postoperative changes in the region of the umbilicus there Distention of the ascending colon and transverse colon and descending colon down to the region of the anastomosis at the rectosigmoid junction. A Maldonado catheter seen within the urinary bladder. Electronically Signed: Johnny Neil MD at 13:48 EST , Service support , Chest X-Ray 05/13/18 14:18 IMPRESSION: The tip of the right internal jugular venous catheter is in the proximal portion of the superior vena cava. There is no evidence of pneumothorax. Stable appearance of the lungs. Electronically Signed: Johnny Neil MD at 15:52 EST , Service support , Chest X-Ray 05/13/18 19:24 IMPRESSION: Interval placement endotracheal and enteric tubes as above. at 1955 Reported and signed by: Jason Goins MD Electronically Signed: Jason Goins, at 19:54 EST Tel , Service support , Chest X-Ray 05/16/18 09:45 IMPRESSION: Mild degree of increased markings at the lung bases. Free intraperitoneal air with the dilatation of the colon. Electronically Signed: Johnny Jolynn, at 14:24 EST , Service support , Abdomen CT 05/17/18 11:30 IMPRESSION: 1. Extensive free air and mild free fluid in the anterior abdomen, concerning for possible anastomotic leak. Open wound may be contributory. 2. Dilated small bowel with gradual transition in the pelvis, possibly due to adhesions. 3. Gas in decompressed bladder may be due to catheter placement or fistula. 4. Small pleural effusions. 5. A 3.2 cm infrarenal AAA. 6. Left femoral head collapse, likely secondary to avascular necrosis. Dr. Mayorga discussed the findings with Dr. Woo at 5:28 PM. N.B. : The above information has been verbally conveyed by Aleena Mayorga MD to Dr. Gerardo Woo MD, on 05/17/2018 17:29:57 (ET). Electronically Signed: Aleena Mayorga MD at 17:31 EST Tel , Service support , ADDENDUM: 05/17/18 1738 IMPRESSION: 1. Extensive free air and mild free fluid in the anterior abdomen, concerning for possible anastomotic leak. Open wound may be contributory. 2. Dilated small bowel with gradual transition in the pelvis, possibly due to adhesions. 3. Gas in decompressed bladder may be due to catheter placement or fistula. 4. Small pleural effusions. 5. A 3.2 cm infrarenal AAA. 6. Left femoral head collapse, likely secondary to avascular necrosis. Dr. Mayorga discussed the findings with Dr. Woo at 5:28 PM. N.B. : The above information has been verbally conveyed by Aleena Mayorga MD to Dr. Gerardo Woo MD, on 05/17/2018 17:29:57 (ET). Electronically Signed: Aleena Mayorga MD at 17:31 EST Tel , Service support , KUB X-Ray 05/17/18 22:56 IMPRESSION: NG tube terminates in the gastric antrum. Electronically Signed: Aleena Mayorga MD at 23:58 EST Tel , Service support , Abdomen CT 05/17/18 22:59 IMPRESSION: Large amount of free intraperitoneal air and moderate free fluid similar to previous. As noted on the prior study, this is more than is normally seen postoperatively and is concerning for bowel perforation or perhaps wound dehiscence. No extraluminal enteric contrast identified. However there is pneumatosis and wall thickening of the ascending colon with immediately adjacent foci of extraluminal air; suspicious for perforation here. Enteric contrast has not yet reached this loop of bowel. Slight interval worsening of bibasal atelectasis versus pneumonia. Several other chronic findings as above similar to prior. Individualized dose optimization techniques were used for this CT. at 0042 Reported and signed by: Jason Goins MD Electronically Signed: Jason Goins, at 0:40 EST Tel , Service support , ADDENDUM: 05/18/18 0052 IMPRESSION: Large amount of free intraperitoneal air and moderate free fluid similar to previous. As noted on the prior study, this is more than is normally seen postoperatively and is concerning for bowel perforation or perhaps wound dehiscence. No extraluminal enteric contrast identified. However there is pneumatosis and wall thickening of the ascending colon with immediately adjacent foci of extraluminal air; suspicious for perforation here. Enteric contrast has not yet reached this loop of bowel. Slight interval worsening of bibasal atelectasis versus pneumonia. Several other chronic findings as above similar to prior. Individualized dose optimization techniques were used for this CT. at 0042 Reported and signed by: Jason Goins MD N.B. : The above information has been verbally conveyed by Jason Goins to Yoly Gallo RN, on 05/18/2018 00:45:57 (ET). Electronically Signed: Jason Goins, at 0:40 EST Tel , Service support , Chest X-Ray 05/18/18 04:38 IMPRESSION: Compressive atelectasis in the right and left lung lower lobes. Small bilateral pleural effusions. Electronically Signed: Constanza Archer, at 7:53 EST Tel , Service support , Chest X-Ray 05/20/18 00:20 IMPRESSION: Compressive atelectasis in the right and left lung lower lobes. Small bilateral pleural effusions. Electronically Signed: Constanza Archer, at 0:52 EST Tel , Service support , Chest X-Ray 05/20/18 15:09 IMPRESSION: Endotracheal tube in a grossly satisfactory position. Cardiomegaly. Right pleural effusion, cannot exclude associated right basilar atelectasis and/or pneumonia. Pulmonary venous congestion with possible associated interstitial edema. Electronically Signed: Shelbi Peacock MD at 16:17 EST Tel , Service support , Chest X-Ray 05/20/18 15:55 IMPRESSION: Stable examination as detailed above. Electronically Signed: Shelbi Peacock MD at 16:47 EST Tel , Service support , Abdomen CT 05/21/18 06:56 IMPRESSION: Since prior study, there is been progressive circumferential wall thickening of the colon suggestive of colitis. Increased markings in the peritoneal fat. Progressive infiltrates in the lower lobes with small bilateral pleural effusions. Minimal residual free air. Electronically Signed: Johnny Neil, at 10:39 EST , Service support , Medical Necessity - Tobacco Use Smoking Status: Current every day smoker Tobacco Use: Cigarettes Assessment/Plan All Active Problems (Last Reviewed 05/04/18 @ 08:39 by Prasanth Pradhan MD) Gross hematuria (Acute) Overweight (Acute) MASOOD (obstructive sleep apnea) (Acute) Colovesical fistula (Acute) Large bowel anastomotic leak (Acute) Sepsis associated hypotension (Acute) Perforated abdominal viscus (Acute) Perforated viscus (Acute) Acute kidney injury (Acute) RECOMMENDATIONS: 1. Continue broad-spectrum antibiotics, per infectious diseases recommendations. 2. Continue vasopressor support as ordered. Wean as tolerated to maintain a mean arterial pressure at or above 65 mmHg. 3. Continued potassium repletion. 4. Continue TPN. 5. Resume heparin drip. 6. Continue appropriate ICU prophylaxis. 7. Continue to wean FiO2 as tolerated to maintain an oxygen saturation at or above 90%. 8. Continue hemodialysis per nephrology recommendations. IMPRESSIONS: 1. Septic shock secondary to perforated viscus s/p exploratory laparotomy and repair of perforated jejunum The patient is currently on broad-spectrum antimicrobials. Infectious diseases is following. He remains on dual vasopressor support in an attempt to maintain hemodynamic stability. This will be continued in an attempt to maintain a mean arterial pressure at or above 65 mmHg. I recommended judicious use of supplemental IV fluids, given the patient's underlying cardiomyopathy and current volume overloaded state. TPN will be continued for nutritional support. 2. Acute respiratory failure The patient returns to the ICU following surgery on invasive mechanical ventilation. At this time, the patient's clinical state is far too tenuous to consider aggressive weaning from mechanical ventilatory support. Unfortunately, the patient will likely need some form of volume optimization in order to wean his FiO2. Nephrology is following to assist with volume optimization through hemodialysis. 3. Coronary artery disease/chronic systolic heart failure Continue current medical therapy. Continue to hold Lasix and beta-bravo. 4. Paroxysmal atrial fibrillation/chronic anticoagulation status/lower extremity DVT The patient's anticoagulation was fully reversed in preparation for surgery. Given his tenuous clinical status, recommend continuing heparin drip as ordered. 5. Hypokalemia Electrolyte repletion has been ordered. Recommend rechecking levels in the morning. 6. Acute kidney injury Improving. Likely prerenal in etiology and related to ischemic ATN in the setting of #1. Will continue current supportive measures as noted above. Nephrology is currently following. Will defer need for ongoing hemodialysis to nephrology. 7. History of obstructive sleep apnea The patient reports a history of noncompliance with the use of nocturnal Pap therapy. TIME: 50 minutes of critical care time, independent of procedures, was spent addressing the patient's septic shock, perforated viscus, acute respiratory failure, coronary artery disease, biventricular heart failure, paroxysmal atrial fibrillation, hypokalemia, acute kidney injury, review of all data and collaboration with the care team. ([id number], [id number]) Code Visit [id number]: [id number] Critical care first hour
--- NOTE | 2018-05-23 06:24 | PN_ITS ---
Subjective: The patient was seen and examined at the bedside this morning. Events from the last 24 hours have been reviewed. The patient remains afebrile. He continues to require vasopressin and 10 mcg of Levophed to maintain hemodynamic stability. While his PEEP remains at 10, his FiO2 was able to be weaned overnight to 50% this morning. The patient continues to have no urine output. He remains on a continuous fentanyl drip at 125 mcg. The patient's continuous heparin infusion was discontinued yesterday. There are tentative plans for the patient to undergo endoscopic evaluation at the bedside this morning. The patient is currently documented to be overall net +14.5 L for the admission. He did undergo hemodialysis yesterday for 2.5 hours with 1.5 L of fluid removed. This morning, the patient underwent upper endoscopy by Dr. Pradhan at the bedside. A CorPak was subsequently placed. Objective: The patient's most recent lab work, culture data and imaging studies have all been personally reviewed. A transesophageal echocardiogram from August 2017 revealed evidence of a moderately severe global LV systolic dysfunction with an ejection fraction of 30%. There is also evidence of moderate global RV systolic dysfunction. There was moderate aortic valve stenosis. General: Alert, No apparent distress, - - Remains intubated, sedated and mechanically ventilated. HEENT: Atraumatic, PERRLA, Normocephalic, - - CorPak now present Oral: Moist Mucosa, - - Endotracheal tube in place Neck: Supple, No Nodes, Trachea Midline, - - Right IJ temporary hemodialysis catheter and left sided triple-lumen catheter in place Lungs: No rhonchi, No wheeze, No rales, Diminished Cardiovascular: Normal S1, Normal S2, No murmurs, Tachycardic Abdomen: Bowel Sounds Present, - - No significant change from previous with abdominal wound present, viable ostomy, retention sutures and RICARDO drains. Extremities: No clubbing, No cyanosis, - - Diffuse anasarca Skin: - - No significant change from previous Musculoskeletal: No Tenderness to Palpation of Joints or Extremities Lymphatic: No Cervical, Supraclavicular, or Inguinal Adenopathy Neurological: Neuro grossly intact Psych/Mental Status: Flat Affect, Depressed Vital Signs Temp Pulse Resp BP Pulse Ox 36.8 C 115 H 17 96/65 95 05/23/18 00:00 05/23/18 06:00 05/23/18 06:00 05/23/18 06:00 05/23/18 06:00 Oxygen Flow Rate (L/min) 60 Oxygen Delivery Method Mechanical Ventilator Weight: 257 lb 15.053 oz Body Mass Index (BMI) 29.9 Intake and Output for Last 24 Hours 05/21/18 05/22/18 05/23/18 23:59 23:59 23:59 Intake Total 2541.3 / 2541.3 3816.0 / 3816.0 546.4 / 546.4 Output Total 875 / 875 5475 / 5475 470 / 470 Balance 1666.3 / 1666.3 -1659.0 / -1659.0 76.4 / 76.4 Labs (Last 48 Hours) 05/20/18 05/21/18 05/21/18 19:00 04:10 06:20 WBC RBC Hgb Hct MCV MCH MCHC RDW RDW Differential Plt Count MPV Neut % (Auto) Absolute Neuts (auto) Absolute Lymphs (auto) Total Counted Neutrophils % (Manual) Band Neutrophils % Lymphocytes % (Manual) Monocytes % (Manual) Eosinophils % (Manual) Metamyelocytes % Myelocytes % Promyelocytes % Plasma Cell % (Manual) Other Cells % Nucleated RBC % Diff Path Review Reviewed Toxic Granulation Platelet Estimate Plt Morphology Comment RBC Morphology Hypochromasia Anisocytosis Macrocytosis Absolute Retic APTT Sodium Potassium Chloride Carbon Dioxide Anion Gap BUN Creatinine Estim Creat Clear Calc Est GFR (MDRD) Af Amer Est GFR (MDRD) Non-Af BUN/Creatinine Ratio Glucose Calcium Phosphorus Magnesium Random Vancomycin 19.6 H Hep Bs Antigen Negative Hep Bs Antibody Non Reactive Hep B Core Total Ab Negative POC Glucose 05/21/18 05/21/18 05/21/18 06:20 12:44 13:00 WBC RBC Hgb Hct MCV MCH MCHC RDW RDW Differential Plt Count MPV Neut % (Auto) Absolute Neuts (auto) Absolute Lymphs (auto) Total Counted Neutrophils % (Manual) Band Neutrophils % Lymphocytes % (Manual) Monocytes % (Manual) Eosinophils % (Manual) Metamyelocytes % Myelocytes % Promyelocytes % Plasma Cell % (Manual) Other Cells % Nucleated RBC % Diff Path Review Toxic Granulation Platelet Estimate Plt Morphology Comment RBC Morphology Hypochromasia Anisocytosis Macrocytosis Absolute Retic APTT 103.1 H* 88.4 H Sodium Potassium Chloride Carbon Dioxide Anion Gap BUN Creatinine Estim Creat Clear Calc Est GFR (MDRD) Af Amer Est GFR (MDRD) Non-Af BUN/Creatinine Ratio Glucose Calcium Phosphorus Magnesium Random Vancomycin Hep Bs Antigen Hep Bs Antibody Hep B Core Total Ab POC Glucose 175 H 05/21/18 05/21/18 05/21/18 18:43 20:00 23:07 WBC RBC Hgb Hct MCV MCH MCHC RDW RDW Differential Plt Count MPV Neut % (Auto) Absolute Neuts (auto) Absolute Lymphs (auto) Total Counted Neutrophils % (Manual) Band Neutrophils % Lymphocytes % (Manual) Monocytes % (Manual) Eosinophils % (Manual) Metamyelocytes % Myelocytes % Promyelocytes % Plasma Cell % (Manual) Other Cells % Nucleated RBC % Diff Path Review Toxic Granulation Platelet Estimate Plt Morphology Comment RBC Morphology Hypochromasia Anisocytosis Macrocytosis Absolute Retic APTT 96.6 H* Sodium Potassium Chloride Carbon Dioxide Anion Gap BUN Creatinine Estim Creat Clear Calc Est GFR (MDRD) Af Amer Est GFR (MDRD) Non-Af BUN/Creatinine Ratio Glucose Calcium Phosphorus Magnesium Random Vancomycin Hep Bs Antigen Hep Bs Antibody Hep B Core Total Ab POC Glucose 144 H 176 H 05/22/18 05/22/18 05/22/18 00:15 04:00 04:00 WBC 30.8 H* RBC 2.91 L Hgb 10.0 L Hct 29.6 L MCV 101.7 H MCH 34.4 H MCHC 33.8 RDW 18.2 H RDW Differential 67.8 H Plt Count 289 MPV 11.9 Neut % (Auto) Not Reportable Absolute Neuts (auto) 25.9 H Absolute Lymphs (auto) 2.16 Total Counted 100 Neutrophils % (Manual) 55 Band Neutrophils % 26 H Lymphocytes % (Manual) 7 L Monocytes % (Manual) 6 Eosinophils % (Manual) 1 Metamyelocytes % 3 H Myelocytes % Promyelocytes % Plasma Cell % (Manual) 1 Other Cells % 1 Nucleated RBC % 0.3 Diff Path Review May foll Toxic Granulation 1+ Platelet Estimate ADEQUATE Plt Morphology Comment RBC Morphology Hypochromasia 1+ Anisocytosis 1+ Macrocytosis 1+ Absolute Retic 0.09 APTT 78.6 H Sodium 135 L Potassium 2.9 L Chloride 98 Carbon Dioxide 26.0 Anion Gap 11 BUN 34 H Creatinine 2.00 H Estim Creat Clear Calc 42.57 Est GFR (MDRD) Af Amer 44 L Est GFR (MDRD) Non-Af 36 L BUN/Creatinine Ratio 17.0 Glucose 179 H Calcium 6.9 L Phosphorus Magnesium 2.5 Random Vancomycin Hep Bs Antigen Hep Bs Antibody Hep B Core Total Ab POC Glucose 05/22/18 05/22/18 05/22/18 04:00 04:00 05:08 WBC RBC Hgb Hct MCV MCH MCHC RDW RDW Differential Plt Count MPV Neut % (Auto) Absolute Neuts (auto) Absolute Lymphs (auto) Total Counted Neutrophils % (Manual) Band Neutrophils % Lymphocytes % (Manual) Monocytes % (Manual) Eosinophils % (Manual) Metamyelocytes % Myelocytes % Promyelocytes % Plasma Cell % (Manual) Other Cells % Nucleated RBC % Diff Path Review Toxic Granulation Platelet Estimate Plt Morphology Comment RBC Morphology Hypochromasia Anisocytosis Macrocytosis Absolute Retic APTT 66.0 H Sodium Potassium Chloride Carbon Dioxide Anion Gap BUN Creatinine Estim Creat Clear Calc Est GFR (MDRD) Af Amer Est GFR (MDRD) Non-Af BUN/Creatinine Ratio Glucose Calcium Phosphorus 4.0 Magnesium Random Vancomycin Hep Bs Antigen Hep Bs Antibody Hep B Core Total Ab POC Glucose 184 H 05/22/18 05/22/18 05/22/18 05:38 09:45 09:45 WBC RBC Hgb 9.8 L Hct 28.8 L MCV MCH MCHC RDW RDW Differential Plt Count MPV Neut % (Auto) Absolute Neuts (auto) Absolute Lymphs (auto) Total Counted Neutrophils % (Manual) Band Neutrophils % Lymphocytes % (Manual) Monocytes % (Manual) Eosinophils % (Manual) Metamyelocytes % Myelocytes % Promyelocytes % Plasma Cell % (Manual) Other Cells % Nucleated RBC % Diff Path Review Toxic Granulation Platelet Estimate Plt Morphology Comment RBC Morphology Hypochromasia Anisocytosis Macrocytosis Absolute Retic APTT 50.3 H Sodium Potassium Chloride Carbon Dioxide Anion Gap BUN Creatinine Estim Creat Clear Calc Est GFR (MDRD) Af Amer Est GFR (MDRD) Non-Af BUN/Creatinine Ratio Glucose Calcium Phosphorus Magnesium Random Vancomycin 14.4 Hep Bs Antigen Hep Bs Antibody Hep B Core Total Ab POC Glucose 05/22/18 05/22/18 05/22/18 13:01 14:25 18:34 WBC 33.4 H* RBC 2.89 L Hgb 9.8 L Hct 29.3 L MCV 101.4 H MCH 33.9 H MCHC 33.4 RDW 18.3 H RDW Differential 68.0 H Plt Count 256 MPV 11.7 Neut % (Auto) Not Reportable Absolute Neuts (auto) 26.9 H Absolute Lymphs (auto) 0.97 Total Counted 100 Neutrophils % (Manual) 76 H Band Neutrophils % 7 H Lymphocytes % (Manual) 3 L Monocytes % (Manual) 5 Eosinophils % (Manual) Metamyelocytes % 3 H Myelocytes % 1 H Promyelocytes % 1 H Plasma Cell % (Manual) 3 Other Cells % 1 Nucleated RBC % Diff Path Review May foll Toxic Granulation 3+ Platelet Estimate ADEQUATE Plt Morphology Comment LARGE RBC Morphology N CHROM Hypochromasia Anisocytosis RARE Macrocytosis 1+ Absolute Retic APTT Sodium Potassium Chloride Carbon Dioxide Anion Gap BUN Creatinine Estim Creat Clear Calc Est GFR (MDRD) Af Amer Est GFR (MDRD) Non-Af BUN/Creatinine Ratio Glucose Calcium Phosphorus Magnesium Random Vancomycin Hep Bs Antigen Hep Bs Antibody Hep B Core Total Ab POC Glucose 179 H 166 H 05/22/18 05/23/18 05/23/18 23:07 04:10 04:10 WBC RBC Hgb Hct MCV MCH MCHC RDW RDW Differential Plt Count MPV Neut % (Auto) Absolute Neuts (auto) Absolute Lymphs (auto) Total Counted Neutrophils % (Manual) Band Neutrophils % Lymphocytes % (Manual) Monocytes % (Manual) Eosinophils % (Manual) Metamyelocytes % Myelocytes % Promyelocytes % Plasma Cell % (Manual) Other Cells % Nucleated RBC % Diff Path Review Toxic Granulation Platelet Estimate Plt Morphology Comment RBC Morphology Hypochromasia Anisocytosis Macrocytosis Absolute Retic APTT Sodium 137 Potassium 3.1 L Chloride 102 Carbon Dioxide 24.0 Anion Gap 11 BUN 48 H Creatinine 3.04 H Estim Creat Clear Calc 28.01 Est GFR (MDRD) Af Amer 27 L Est GFR (MDRD) Non-Af 22 L BUN/Creatinine Ratio 15.8 Glucose 163 H Calcium 7.0 L Phosphorus Magnesium 2.6 Random Vancomycin 22.1 H Hep Bs Antigen Hep Bs Antibody Hep B Core Total Ab POC Glucose 167 H Microbiology 05/22/18 13:10 Stool C. difficile DNA Amplification - Final 05/17/18 07:27 Blood Culture (Wb) - Anticubital Right Blood Culture - Final No growth in 5 days. 05/17/18 08:25 Blood Culture (Wb) - Central Line Blood Culture - Final No growth in 5 days. 05/20/18 09:35 Wound Drainage - Aerobic & Anaerobic Swabs Gram Stain - Final 05/20/18 09:35 Wound Drainage - Aerobic & Anaerobic Swabs Wound Culture - Preliminary Presumptive C albicans Staphylococcus species GPC Poss Enterococcus sp 05/20/18 09:35 Wound Drainage - Aerobic & Anaerobic Swabs Anaerobic Culture - Preliminary Checking for anaerobes, further studies to follow. Clinical Impression(s) from Imaging Studies Abdomen/Pelvis CT 05/03/18 07:41 IMPRESSION: Large bladder mass as described causing a marked degree of bladder dilatation. Air is seen within the urinary bladder. This may be related to Maldonado catheter manipulation. If not, a colovesical fistula should be ruled out. Electronically Signed: Johnny Neil MD at 9:02 EST , Service support , Chest X-Ray 05/03/18 09:37 IMPRESSION: Mild cardiomegaly. Electronically Signed: Johnny Neil MD at 10:05 EST , Service support , Abdomen/Pelvis CT 05/04/18 07:00 IMPRESSION: Evaluation was performed to evaluate for a colovesical fistula. Please note that a study prior to injection of rectal contrast was not performed. This somewhat limits evaluation. There is hyperdense material in the bladder at time of prior study May 03, 2018 which most likely represented a hematoma. On today's examination again noted is gas as well as hyperdense material within the bladder. There is intimate association with a segment of the sigmoid colon with the urinary bladder. There is a small focus of gas within the bladder at this region. Findings would be concerning for a colovesical fistula. Correlate with urinalysis. Interval placement of a Maldonado catheter. The previously noted bladder hyperdense masslike lesion has significantly decreased in size. Likely representing a large hematoma. Recommend follow-up to ensure resolution. Diverticulosis is present. There is some thickening of the sigmoid colon with some stranding concerning for diverticulitis. Infrarenal abdominal aortic aneurysm. Decreasing right hydronephrosis. Evidence of prior granulomatous disease. Bilateral nephrolithiasis. Electronically Signed: Dawood Marksford, at 7:57 EST Tel , Service support , Chest X-Ray 05/10/18 05:55 IMPRESSION: Atelectasis and/or infiltrates at the lung bases worse on the left side with blunting of left costophrenic angle. Electronically Signed: Johnny Neil MD at 9:43 EST , Service support , Chest X-Ray 05/12/18 16:45 IMPRESSION: 1. Decreased bibasilar atelectasis. No organizing infiltrates seen. 2. Gaseous distention of bowel in the upper abdomen, incompletely visualized. 3. Mild cardiomegaly. Electronically Signed: Tunde Cole MD at 17:03 EST , Service support , Abdomen/Pelvis CT 05/13/18 10:28 IMPRESSION: Small bilateral pleural effusions with bibasilar infiltrates and/or atelectasis. Small amount of perihepatic as well as perisplenic fluid as well as fluid in the pelvis. Small amount of fluid in the Colic gutters. Postoperative changes in the region of the umbilicus there Distention of the ascending colon and transverse colon and descending colon down to the region of the anastomosis at the rectosigmoid junction. A Maldonado catheter seen within the urinary bladder. Electronically Signed: Johnny Neil MD at 13:48 EST , Service support , Chest X-Ray 05/13/18 14:18 IMPRESSION: The tip of the right internal jugular venous catheter is in the proximal portion of the superior vena cava. There is no evidence of pneumothorax. Stable appearance of the lungs. Electronically Signed: Johnny Neil MD at 15:52 EST , Service support , Chest X-Ray 05/13/18 19:24 IMPRESSION: Interval placement endotracheal and enteric tubes as above. at 1955 Reported and signed by: Jason Goins MD Electronically Signed: Jason Goins, at 19:54 EST Tel , Service support , Chest X-Ray 05/16/18 09:45 IMPRESSION: Mild degree of increased markings at the lung bases. Free intraperitoneal air with the dilatation of the colon. Electronically Signed: Johnny Jolynn, at 14:24 EST , Service support , Abdomen CT 05/17/18 11:30 IMPRESSION: 1. Extensive free air and mild free fluid in the anterior abdomen, concerning for possible anastomotic leak. Open wound may be contributory. 2. Dilated small bowel with gradual transition in the pelvis, possibly due to adhesions. 3. Gas in decompressed bladder may be due to catheter placement or fistula. 4. Small pleural effusions. 5. A 3.2 cm infrarenal AAA. 6. Left femoral head collapse, likely secondary to avascular necrosis. Dr. Mayorga discussed the findings with Dr. Woo at 5:28 PM. N.B. : The above information has been verbally conveyed by Aleena Mayorga MD to Dr. Gerardo Woo MD, on 05/17/2018 17:29:57 (ET). Electronically Signed: Aleena Mayorga MD at 17:31 EST Tel , Service support , ADDENDUM: 05/17/18 1738 IMPRESSION: 1. Extensive free air and mild free fluid in the anterior abdomen, concerning for possible anastomotic leak. Open wound may be contributory. 2. Dilated small bowel with gradual transition in the pelvis, possibly due to adhesions. 3. Gas in decompressed bladder may be due to catheter placement or fistula. 4. Small pleural effusions. 5. A 3.2 cm infrarenal AAA. 6. Left femoral head collapse, likely secondary to avascular necrosis. Dr. Mayorga discussed the findings with Dr. Woo at 5:28 PM. N.B. : The above information has been verbally conveyed by Aleena Mayorga MD to Dr. Gerardo Woo MD, on 05/17/2018 17:29:57 (ET). Electronically Signed: Aleena Mayorga MD at 17:31 EST Tel , Service support , KUB X-Ray 05/17/18 22:56 IMPRESSION: NG tube terminates in the gastric antrum. Electronically Signed: Aleena Mayorga MD at 23:58 EST Tel , Service support , Abdomen CT 05/17/18 22:59 IMPRESSION: Large amount of free intraperitoneal air and moderate free fluid similar to previous. As noted on the prior study, this is more than is normally seen postoperatively and is concerning for bowel perforation or perhaps wound dehiscence. No extraluminal enteric contrast identified. However there is pneumatosis and wall thickening of the ascending colon with immediately adjacent foci of extraluminal air; suspicious for perforation here. Enteric contrast has not yet reached this loop of bowel. Slight interval worsening of bibasal atelectasis versus pneumonia. Several other chronic findings as above similar to prior. Individualized dose optimization techniques were used for this CT. at 0042 Reported and signed by: Jason Goins MD Electronically Signed: Jason Goins, at 0:40 EST Tel , Service support , ADDENDUM: 05/18/18 0052 IMPRESSION: Large amount of free intraperitoneal air and moderate free fluid similar to previous. As noted on the prior study, this is more than is normally seen postoperatively and is concerning for bowel perforation or perhaps wound dehiscence. No extraluminal enteric contrast identified. However there is pneumatosis and wall thickening of the ascending colon with immediately adjacent foci of extraluminal air; suspicious for perforation here. Enteric contrast has not yet reached this loop of bowel. Slight interval worsening of bibasal atelectasis versus pneumonia. Several other chronic findings as above similar to prior. Individualized dose optimization techniques were used for this CT. at 0042 Reported and signed by: Jason Goins MD N.B. : The above information has been verbally conveyed by Jason Goins to Yoly Gallo RN, on 05/18/2018 00:45:57 (ET). Electronically Signed: Jason Goins, at 0:40 EST Tel , Service support , Chest X-Ray 05/18/18 04:38 IMPRESSION: Compressive atelectasis in the right and left lung lower lobes. Small bilateral pleural effusions. Electronically Signed: Constanza Archer, at 7:53 EST Tel , Service support , Chest X-Ray 05/20/18 00:20 IMPRESSION: Compressive atelectasis in the right and left lung lower lobes. Small bilateral pleural effusions. Electronically Signed: Constanza Archer, at 0:52 EST Tel , Service support , Chest X-Ray 05/20/18 15:09 IMPRESSION: Endotracheal tube in a grossly satisfactory position. Cardiomegaly. Right pleural effusion, cannot exclude associated right basilar atelectasis and/or pneumonia. Pulmonary venous congestion with possible associated interstitial edema. Electronically Signed: Shelbi Peacock MD at 16:17 EST Tel , Service support , Chest X-Ray 05/20/18 15:55 IMPRESSION: Stable examination as detailed above. Electronically Signed: Shelbi Peacock MD at 16:47 EST Tel , Service support , Abdomen CT 05/21/18 06:56 IMPRESSION: Since prior study, there is been progressive circumferential wall thickening of the colon suggestive of colitis. Increased markings in the peritoneal fat. Progressive infiltrates in the lower lobes with small bilateral pleural effusions. Minimal residual free air. Electronically Signed: Johnny Neil, at 10:39 EST , Service support , Medical Necessity - Tobacco Use Smoking Status: Current every day smoker Tobacco Use: Cigarettes Assessment/Plan All Active Problems (Last Reviewed 05/04/18 @ 08:39 by Prasanth Pradhan MD) Gross hematuria (Acute) Overweight (Acute) MASOOD (obstructive sleep apnea) (Acute) Colovesical fistula (Acute) Large bowel anastomotic leak (Acute) Sepsis associated hypotension (Acute) Perforated abdominal viscus (Acute) Perforated viscus (Acute) Acute kidney injury (Acute) RECOMMENDATIONS: 1. Continue broad-spectrum antibiotics, per infectious diseases recommendations. 2. Continue vasopressor support as ordered. Wean as tolerated to maintain a mean arterial pressure at or above 65 mmHg. 3. Continued potassium repletion. 4. Continue TPN. 5. Resume heparin drip. 6. Continue appropriate ICU prophylaxis. 7. Continue to wean FiO2 as tolerated to maintain an oxygen saturation at or above 90%. 8. Continue hemodialysis per nephrology recommendations. IMPRESSIONS: 1. Septic shock secondary to perforated viscus s/p exploratory laparotomy and repair of perforated jejunum The patient is currently on broad-spectrum antimicrobials. Infectious diseases is following. He remains on dual vasopressor support in an attempt to maintain hemodynamic stability. This will be continued in an attempt to maintain a mean arterial pressure at or above 65 mmHg. I recommended judicious use of supplemental IV fluids, given the patient's underlying cardiomyopathy and cu rrent volume overloaded state. TPN will be continued for nutritional support. 2. Acute respiratory failure The patient returns to the ICU following surgery on invasive mechanical ventilation. At this time, the patient's clinical state is far too tenuous to consider aggressive weaning from mechanical ventilatory support. Unfortunately, the patient will likely need some form of volume optimization in order to wean his FiO2. Nephrology is following to assist with volume optimization through hemodialysis. 3. Coronary artery disease/chronic systolic heart failure Continue current medical therapy. Continue to hold Lasix and beta-bravo. 4. Paroxysmal atrial fibrillation/chronic anticoagulation status/lower extremity DVT The patient's anticoagulation was fully reversed in preparation for surgery. Given his tenuous clinical status, recommend continuing heparin drip as ordered. 5. Hypokalemia Electrolyte repletion has been ordered. Recommend rechecking levels in the morning. 6. Acute kidney injury Improving. Likely prerenal in etiology and related to ischemic ATN in the setting of #1. Will continue current supportive measures as noted above. Nephrology is currently following. Will defer need for ongoing hemodialysis to nephrology. 7. History of obstructive sleep apnea The patient reports a history of noncompliance with the use of nocturnal Pap therapy. TIME: 50 minutes of critical care time, independent of procedures, was spent addressing the patient's septic shock, perforated viscus, acute respiratory failure, coronary artery disease, biventricular heart failure, paroxysmal atrial fibrillation, hypokalemia, acute kidney injury, review of all data and collaboration with the care team. ([id number], [id number]) Code Visit [id number]: [id number] Critical care first hour
[2018-05-23 06:31] LABS: International Normalized Ratio 1.5; Prothrombin Time (Protime)PT. 18.2 SECONDS (11.7-14.9)
[2018-05-23 06:39] LABS: Hematocrit 29.3 % (40-54); Hemoglobin 9.7 g/dl (13.0-16.5); Mean Corp Hgb Conc 33.1 g/gl (32-36); Mean Corpuscular Hgb 33.7 pg (27.0-32.0); Mean Corpuscular Volume 101.7 fL (80-94); Mean Platelet Vol. 12.5 fl (6.2-12.0); Platelet Count 261 K/mm3 (150-450); RBC Distribution Width CV 18.4 % (11.6-14.6); RBC Distribution Width SD 68.7 fl (35.1-43.9); Red Blood Count 2.88 M/mm3 (4.6-6.2); White Blood Count 29.9 K/mm3 (4.4-11.0)
[2018-05-23 06:43] LABS: Differential Indicated MANUAL DIFF; POSITIVE COUNT NO; POSITIVE DIFFERENTIAL YES; POSITIVE MORPHOLOGY YES
[2018-05-23 06:51] LABS: Bedside Glucose 165 mg/dL (70-110)
[2018-05-23 07:11] LABS: Absolute Nucleated RBC Count 0.04 10^3/uL (0-5); NRBC Flagged by Analyzer 0.1 % (0-5)
[2018-05-23 07:13] LABS: Basophil 1 % (0-1); Eosinophil 1 % (0-5); Lymphocyte 5 % (19-41); Monocyte 5 % (0-10); Myelocyte 2 (0-0); Neutrophil-Band 3 % (0-5); Neutrophil-Segmented 83 % (47-70); Total Cells Counted 100 (MANUAL DIFF)
[2018-05-23 07:14] LABS: Anisocytosis 1+; Hypochromasia 1+; Microcytosis 1+; Platelet Estimate ADEQUATE (ADEQ); Platelet Morphology LARGE; Toxic Granulation 1+
[2018-05-23 07:15] LABS: Reactive Lymphocyte 1+
[2018-05-23 07:16] LABS: Absolute Lymphocyte Count 1.49 X10^3/ul (0.83-4.51); Absolute Neutrophil Count 25.7 X10^3/uL (2.0-7.7)
--- NOTE | 2018-05-23 07:52 | PCM.PN.HOSP ---
Patient Problems: Active and Suspected Problems (Last Reviewed 05/04/18 @ 08:39 by Prasanth Pradhan MD) Gross hematuria (Acute) Overweight (Acute) MASOOD (obstructive sleep apnea) (Acute) non-compliant with CPAP Peripheral arterial disease (Suspected) Colovesical fistula (Acute) Large bowel anastomotic leak (Acute) Sepsis associated hypotension (Acute) Perforated abdominal viscus (Acute) Perforated viscus (Acute) Acute kidney injury (Acute) Subjective: Patient was seen and examined. Had EGD/colonoscopy done this am - findings show mild mucosal diffuse changes suggestive of pancolitis secondary to ischemic colitis. Patient remains about the same. No fevers seen Objective: Physical exam: General: Alert, Oriented x3, Cooperative, - - intubated, on mechanical ventilator, appears fairly comfortable HEENT: Atraumatic, PERRLA, EOMI, Normocephalic Neck: Supple, No JVD, Negative Carotid Bruits Lungs: Normal air movement, Diminished - no rhonchi heard Cardiovascular: Regular rate, Regular Rhythm, Normal S1, Normal S2, No murmurs Abdomen: Bowel Sounds Present - and normal in all 4 quadrants, Soft, Non-Distended, Tender - generalised without guarding and RBT, - - midline dressing is intact, LLQ colostomy appears empty with air and minimal serosanguinous pink fluid, RICARDO drains have serosanguinous fluid Extremities: Edema - +3-4 pitting, non-tender edema Skin: - - weeping of serosanguinous fluid from bilateral legs Musculoskeletal: No Tenderness to Palpation of Joints or Extremities Lymphatic: No Cervical, Supraclavicular, or Inguinal Adenopathy Neurological: Cranial nerves II-XII grossly intact Psych/Mental Status: Normal Affect, Appropriate Vitals/I&O's: Vital Signs Temp Pulse Resp BP Pulse Ox 98.2 F 109 H 20 H 98/52 L 92 05/23/18 00:00 05/23/18 07:00 05/23/18 07:00 05/23/18 07:00 05/23/18 07:00 Oxygen Flow Rate (L/min) 60 Oxygen Delivery Method Mechanical Ventilator Weight: 117 kg Body Mass Index (BMI) 29.9 Intake and Output for Last 24 Hours 05/21/18 05/22/18 05/23/18 23:59 23:59 23:59 Intake Total 2541.3 / 2541.3 3816.0 / 3816.0 576.4 / 576.4 Output Total 875 / 875 5475 / 5475 470 / 470 Balance 1666.3 / 1666.3 -1659.0 / -1659.0 106.4 / 106.4 Microbiology Past 72 Hours 05/20/18 09:35 Wound Drainage - Aerobic & Anaerobic Swabs Gram Stain - Final 05/20/18 09:35 Wound Drainage - Aerobic & Anaerobic Swabs Wound Culture - Final Presumptive C albicans Staphylococcus epidermidis Enterococcus faecalis 05/20/18 09:35 Wound Drainage - Aerobic & Anaerobic Swabs Anaerobic Culture - Preliminary Checking for anaerobes, further studies to follow. 05/22/18 13:10 Stool C. difficile DNA Amplification - Final 05/17/18 07:27 Blood Culture (Wb) - Anticubital Right Blood Culture - Final No growth in 5 days. 05/17/18 08:25 Blood Culture (Wb) - Central Line Blood Culture - Final No growth in 5 days. 05/17/18 10:25 Urine Catheter - Maldonado Urine Culture - Final Michelet albicans Laboratory Results 05/20/18 19:00: Hep Bs Antigen Negative, Hep Bs Antibody Non Reactive, Hep B Core Total Ab Negative 05/22/18 09:45: Hgb 9.8 L, Hct 28.8 L 05/22/18 09:45: APTT 50.3 H 05/22/18 13:01: POC Glucose 179 H 05/22/18 14:25: WBC 33.4 H*, RBC 2.89 L, Hgb 9.8 L, Hct 29.3 L, MCV 101.4 H, MCH 33.9 H, MCHC 33.4, RDW 18.3 H, RDW Differential 68.0 H, Plt Count 256, MPV 11.7, Neut % (Auto) Not Reportable, Absolute Neuts (auto) 26.9 H, Absolute Lymphs (auto) 0.97, Total Counted 100, Neutrophils % (Manual) 76 H, Band Neutrophils % 7 H, Lymphocytes % (Manual) 3 L, Monocytes % (Manual) 5, Metamyelocytes % 3 H, Myelocytes % 1 H, Promyelocytes % 1 H, Plasma Cell % (Manual) 3, Other Cells % 1, Diff Path Review May foll, Toxic Granulation 3+, Platelet Estimate ADEQUATE, Plt Morphology Comment LARGE, RBC Morphology N CHROM, Anisocytosis RARE, Macrocytosis 1+ 05/22/18 18:34: POC Glucose 166 H 05/22/18 23:07: POC Glucose 167 H 05/23/18 04:10: Sodium 137, Potassium 3.1 L, Chloride 102, Carbon Dioxide 24.0, Anion Gap 11, BUN 48 H, Creatinine 3.04 H, Estim Creat Clear Calc 28.01, Est GFR (MDRD) Af Amer 27 L, Est GFR (MDRD) Non-Af 22 L, BUN/Creatinine Ratio 15.8, Glucose 163 H, Calcium 7.0 L, Magnesium 2.6 05/23/18 04:10: Random Vancomycin 22.1 H 05/23/18 04:10: WBC 29.9 H, RBC 2.88 L, Hgb 9.7 L, Hct 29.3 L, MCV 101.7 H, MCH 33.7 H, MCHC 33.1, RDW 18.4 H, RDW Differential 68.7 H, Plt Count 261, MPV 12.5 H, Neut % (Auto) Not Reportable, Absolute Neuts (auto) 25.7 H, Absolute Lymphs (auto) 1.49, Total Counted 100, Neutrophils % (Manual) 83 H, Band Neutrophils % 3, Lymphocytes % (Manual) 5 L, Monocytes % (Manual) 5, Eosinophils % (Manual) 1, Basophils % (Manual) 1, Myelocytes % 2 H, Nucleated RBC % 0.1, Diff Path Review May foll, Reactive Lymphocytes 1+, Toxic Granulation 1+, Platelet Estimate ADEQUATE, Plt Morphology Comment LARGE, Hypochromasia 1+, Anisocytosis 1+, Microcytosis 1+, Absolute Retic 0.04 05/23/18 04:10: PT 18.2 H, INR 1.5, APTT 48.0 H 05/23/18 05:41: POC Glucose 165 H Current Medications Albuterol/Ipratropium (Duoneb) 3 ml INHALATION Q4H.RT PRN PRN Reason: WHEEZING Last Admin: 05/18/18 22:15 Dose: 3 ml Atorvastatin Calcium (Lipitor) 40 mg NG HS ERROL Last Admin: 05/22/18 22:10 Dose: 40 mg Bisacodyl (Dulcolax) 5 mg PO DAILY PRN PRN PRN Reason: Constipation Calamine/Phenol (Calmoseptine Ointment) 1 applic TOPICAL BID [facility]; Protocol Last Admin: 05/22/18 22:11 Dose: 1 applicatio Chlorhexidine Gluconate () 15 ml PO BID [facility] Last Admin: 05/22/18 22:10 Dose: 15 ml Chlorhexidine Gluconate () 1 each TOPICAL DAILY [facility] Last Admin: 05/23/18 03:06 Dose: 1 each Docusate Sodium (Colace Syrup) 100 mg NG BID [facility] Last Admin: 05/22/18 22:10 Dose: 100 mg Heparin Sodium (Porcine) (Heparin Na) 0 unit IV UD PRN; Protocol Heparin Sodium (Porcine) () 2,500 units IV UD PRN PRN Reason: HEPARIN FLUSH Vancomycin IV Pharmacy to Dose (1 ea/ Sodium Chloride) 500 mls @ 250 mls/hr IV PRN PRN; Protocol PRN Reason: Rx to Dose Fentanyl () 100 mls @ 5 mls/hr IV .Q20H [facility]; Protocol Last Admin: 05/23/18 02:19 Dose: 5 mls/hr Meropenem 500 mg/ Sodium (Chloride) 60 mls @ 100 mls/hr IV Q24H [facility] Last Admin: 05/22/18 18:41 Dose: 100 mls/hr Vasopressin 20 units/ Sodium (Chloride) 25 mls @ 3 mls/hr IV .Q8H20M [facility] Last Admin: 05/23/18 03:06 Dose: 3 mls/hr Fluconazole (Diflucan) 200 mg in 100 mls @ 100 mls/hr IV Q24 [facility] Last Admin: 05/22/18 12:24 Dose: 100 mls/hr Metronidazole (Flagyl) 500 mg in 100 mls @ 100 mls/hr IV Q8 [facility] Last Admin: 05/23/18 05:42 Dose: 100 mls/hr Multivitamins 10 ml/ Chromium/Copper/Manganese/Seleni/Zn 1 ml/ Folic Acid 1 mg/ Amino Acids/Electrolytes 2,011.2 mls @ 42 mls/hr IV .Q24H [facility] Stop: 05/24/18 15:36 Last Admin: 05/22/18 17:28 Dose: 42 mls/hr Norepinephrine Bitartrate 16 (mg/ Dextrose) 266 mls @ 4.99 mls/hr IV .[id number] [facility] Last Admin: 05/22/18 10:20 Dose: 4.99 mls/hr Insulin Human Lispro (Humalog Kwikpen (Bkc)) 0 unit SC Q6 [facility]; Protocol Last Admin: 05/23/18 05:43 Dose: 1 u Lansoprazole (Prevacid) 30 mg NG DAILY [facility] Last Admin: 05/22/18 12:27 Dose: 30 mg Magnesium Hydroxide (Milk Of Magnesia) 30 ml NG DAILY PRN PRN Reason: Constipation Magnesium Oxide (Mag-Ox 400) 400 mg NG DAILY [facility] Last Admin: 05/22/18 12:26 Dose: 400 mg Ondansetron HCl (Zofran) 4 mg IV Q6H PRN PRN PRN Reason: Nausea Last Admin: 05/16/18 04:56 Dose: 4 mg Potassium Bicarb/Potassium Chloride (Potassium Chl 25 Meq Eff (For Liquid)) 50 meq NG BID [facility] Last Admin: 05/22/18 22:10 Dose: 50 meq Sodium Chloride () 5 - 15 ml IV UD PRN PRN Reason: SALINE FLUSH Last Admin: 05/23/18 05:42 Dose: 15 ml Sodium Hypochlorite (Dakins Solution 0.25% (1/2 Strength)) 1 applic TOPICAL BID [facility]; Protocol Last Admin: 05/22/18 22:11 Dose: 1 applicatio Vancomycin HCl () 500 mg NG Q6 [facility] Last Admin: 05/23/18 05:42 Dose: 500 mg Medical Necessity - Tobacco Use Smoking Status: Current every day smoker Tobacco Use: Cigarettes Assessment/Plan All Active Problems (Last Reviewed 05/04/18 @ 08:39 by Prasanth Pradhan MD) Gross hematuria (Acute) Overweight (Acute) MASOOD (obstructive sleep apnea) (Acute) Colovesical fistula (Acute) Large bowel anastomotic leak (Acute) Sepsis associated hypotension (Acute) Perforated abdominal viscus (Acute) Perforated viscus (Acute) Acute kidney injury (Acute) 62-year-old male with past medical history of hypertension, CAD, likely ischemic cardiomyopathy, EF 30%, nicotine dependence who was admitted on 05/02/[address] abdomen and pelvis without contrast showed 8.7 x 8.3 single large mass in the base of the bladder with marked urinary bladder distention air-fluid level suspicious of colovesical fistula. He underwent cystoscopy evacuation of blood clots, laser of a very large bladder stone, evacuation of bladder stone fragments, cystolitholapaxy on 05/03/2018. He subsequently sigmoid colon resection and repair of colovesical fistula on 05/07/2018. His post-op care was complicated with anastomotic leak and patient had exploratory laparotomy and creation of the end colostomy on 05/13/2018. Patient had exploratory laparotomy with jejunal repair on 05/17/2018. He remains in ICU, intubated, mechanical ventilator, on pressors 1. Septic shock secondary to anastomotic leak/intra-abdominal abscess, not much improvement WBC count is 29.9 from 33.4 C. diff is negative. Repeat CT abdomen/pelvis showed colitis, Wound cultures growing staph epidermidis, enterococcus, presumptive michelet Urine cultures growing michelet. ID consulted. On fluconazole, meropenem, vancomycin Will trend labs in am 2. Hypokalemia, K 3.1, replaced, recheck in am 3. OVI likely secondary to ischemic ATN, on slow HD, nephrology ff 4. Candiduria, on IV fluconazole 5. Hyperglycemia secondary to TPN, BS fairly controlled, continue on low-dose insulin sliding scale with Accu-Cheks 6. Left lower extremity DVT, developed after surgery, on IV heparin drip. It was held for a short while today, to be resumed. 7. Colovesical fistula status post cystoscopy, evacuation of blood clots, laser of a very large bladder stone, evacuation of bladder stone fragments, cystolitholapaxy. colectomy, s/p hardwick pouch, Remains NPO, in ileus, s/p NG tube to intermittent suction will follow general surgery recommendations, wound nurse following 8. s/p exploratory laparotomy on 05/17/18, pain is fairly controlled, on fentanyl drip, NG tube in situ, will follow up with general surgery recommendation 9. Acute hypoxic respiratory failure, remains on ventilatory support 10. CAD/ischemic cardiomyopathy, EF 30%, in acute exacerbation, fluid removal via HD 11. Hypertension, now hypotensive, will continue to monitor 12. A. fib with RVR, secondary to septic shock, HR is fairly controlled 13. MASOOD, noncompliant with CPAP 14. Hypoalbuminemia, on TPN, s/p corpak placement, tube feeds to start today 15. DVT PPx- On heparin drip Code Visit Inpatient E&M: 92667 Subs Hosp L3
--- NOTE | 2018-05-23 09:26 | NURSING ---
and Dr. Woo present in pt room 0925 HR 124, R 19, SpO2 91% 50% fio2 BP 96/60 fent to 200mcg/hr, levo to 20mcg/min prop 40mcg IV push per Dr. Woo 0930 HR 115 R 16 SpO2 94 BP 82/[address] Woo levo increased to 30mcq 0935 HR 111 R 16 SpO2 95 BP 96/63 slt turn to L dobhoff placed per Dr. Pradhan in duodenum 0940 HR 98 R 16 SpO2 94 BP 99/57 fent return to 125mcq dobhoff L nare and NG R nare secured EGD complete, move to colonoscopy 0945 HR 107 R 16 SpO2 94 BP 94/60 scope complete 0950 HR 106 R 16 SpO2 94 BP 88/58 (67) Manuela RN present to redress colostomy 0955 HR 106 R 18 SpO2 93 BP 84/53 (63) 1000 HR 107, R 16, SpO2 93 BP 81/55 (62)
[2018-05-23] MEDS: Lidocaine Jelly 2% 20 ML Syringe (URO-JET) 20 APPLIC TOPICAL (09:30)
[2018-05-23] MEDS: Propofol 200 MG/20 ML Vial 60 MG IV BOLUS (09:32)
--- NOTE | 2018-05-23 09:33 | CASEMGMT ---
SW participated in ICU rounds this morning. Discharge plan at this time to be determined. Pt remains on a vent at this time. SW will continue to follow. JACKIE Fagan, NOCTURNIST PHYSICIAN
--- NOTE | 2018-05-23 10:05 | NURSING ---
Removed ostomy appliance. stoma remains beefy red and edematous. peristomal skin is intact. some old blood noted to the outer edges of the stoma. no bleeding noted currently. cleansed peristomal skin with warm water. pat dry. stoma measures approx 2 1/4. applied a new 2 piece flat [place] [employer] appliance with a small amount of stoma paste. pt tolerated well.
--- NOTE | 2018-05-23 10:27 | PN.ID_ITS ---
Patient Problems: Active and Suspected Problems (Last Reviewed 05/04/18 @ 08:39 by Prasanth Pradhan MD) Gross hematuria (Acute) Overweight (Acute) MASOOD (obstructive sleep apnea) (Acute) non-compliant with CPAP Peripheral arterial disease (Suspected) Colovesical fistula (Acute) Large bowel anastomotic leak (Acute) Sepsis associated hypotension (Acute) Perforated abdominal viscus (Acute) Perforated viscus (Acute) Acute kidney injury (Acute) Subjective: Scope done this AM. No fever overnight. - Physical Exam General: No apparent distress Lungs: Clear to auscultation, Normal air movement Cardiovascular: Tachycardic Abdomen: Distended Skin: No rashes, Incision Vital Signs Temp Pulse Resp BP Pulse Ox 98.2 F 109 H 20 H 98/52 L 92 05/23/18 00:00 05/23/18 07:00 05/23/18 07:00 05/23/18 07:00 05/23/18 07:00 Oxygen Flow Rate (L/min) 60 Oxygen Delivery Method Mechanical Ventilator Weight: 117 kg Body Mass Index (BMI) 29.9 Intake and Output for Last 24 Hours 05/21/18 05/22/18 05/23/18 23:59 23:59 23:59 Intake Total 2541.3 / 2541.3 3816.0 / 3816.0 576.4 / 576.4 Output Total 875 / 875 5475 / 5475 470 / 470 Balance 1666.3 / 1666.3 -1659.0 / -1659.0 106.4 / 106.4 Microbiology Past 72 Hours 05/20/18 09:35 Gram Stain - Final Wound Drainage - Aerobic & Anaerobic Swabs Wound Culture - Final Presumptive C albicans Staphylococcus epidermidis Enterococcus faecalis Anaerobic Culture - Final No anaerobic bacteria isolated. 05/22/18 13:10 C. difficile DNA Amplification - Final Stool 05/17/18 07:27 Blood Culture - Final Blood Culture (Wb) - Anticubital Right No growth in 5 days. 05/17/18 08:25 Blood Culture - Final Blood Culture (Wb) - Central Line No growth in 5 days. 05/17/18 10:25 Urine Culture - Final Urine Catheter - Maldonado Danya albicans Laboratory Tests Past 24 Hrs 05/22/18 05/23/18 05/23/18 14:25 04:10 04:10 WBC 33.4 H* RBC 2.89 L Hgb 9.8 L Hct 29.3 L MCV 101.4 H MCH 33.9 H MCHC 33.4 RDW 18.3 H RDW Differential 68.0 H Plt Count 256 MPV 11.7 Neut % (Auto) Not Reportable Absolute Neuts (auto) 26.9 H Absolute Lymphs (auto) 0.97 Total Counted 100 Neutrophils % (Manual) 76 H Band Neutrophils % 7 H Lymphocytes % (Manual) 3 L Monocytes % (Manual) 5 Eosinophils % (Manual) Basophils % (Manual) Metamyelocytes % 3 H Myelocytes % 1 H Promyelocytes % 1 H Plasma Cell % (Manual) 3 Other Cells % 1 Nucleated RBC % Diff Path Review May foll Reactive Lymphocytes Toxic Granulation 3+ Platelet Estimate ADEQUATE Plt Morphology Comment LARGE RBC Morphology N CHROM Hypochromasia Anisocytosis RARE Microcytosis Macrocytosis 1+ Absolute Retic PT INR APTT Sodium 137 Potassium 3.1 L Chloride 102 Carbon Dioxide 24.0 Anion Gap 11 BUN 48 H Creatinine 3.04 H Estim Creat Clear Calc 28.01 Est GFR (MDRD) Af Amer 27 L Est GFR (MDRD) Non-Af 22 L BUN/Creatinine Ratio 15.8 Glucose 163 H Calcium 7.0 L Magnesium 2.6 Random Vancomycin 22.1 H 05/23/18 05/23/18 04:10 04:10 WBC 29.9 H RBC 2.88 L Hgb 9.7 L Hct 29.3 L MCV 101.7 H MCH 33.7 H MCHC 33.1 RDW 18.4 H RDW Differential 68.7 H Plt Count 261 MPV 12.5 H Neut % (Auto) Not Reportable Absolute Neuts (auto) 25.7 H Absolute Lymphs (auto) 1.49 Total Counted 100 Neutrophils % (Manual) 83 H Band Neutrophils % 3 Lymphocytes % (Manual) 5 L Monocytes % (Manual) 5 Eosinophils % (Manual) 1 Basophils % (Manual) 1 Metamyelocytes % Myelocytes % 2 H Promyelocytes % Plasma Cell % (Manual) Other Cells % Nucleated RBC % 0.1 Diff Path Review May foll Reactive Lymphocytes 1+ Toxic Granulation 1+ Platelet Estimate ADEQUATE Plt Morphology Comment LARGE RBC Morphology Hypochromasia 1+ Anisocytosis 1+ Microcytosis 1+ Macrocytosis Absolute Retic 0.04 PT 18.2 H INR 1.5 APTT 48.0 H Sodium Potassium Chloride Carbon Dioxide Anion Gap BUN Creatinine Estim Creat Clear Calc Est GFR (MDRD) Af Amer Est GFR (MDRD) Non-Af BUN/Creatinine Ratio Glucose Calcium Magnesium Random Vancomycin POC Glucose 05/23/18 05/22/18 05/22/18 05:41 23:07 18:34 POC Glucose 165 H 167 H 166 H 05/22/18 13:01 POC Glucose 179 H Medical Necessity - Tobacco Use Smoking Status: Current every day smoker Tobacco Use: Cigarettes Route of nutrition/ use of supplements: [] Nutritional Intake: [] IV Site: [] Maldonado Catheter: [] - Assessment/Plan Antibiotics: [] Assessment/Plan: [] Active and Suspected Problems (Last Reviewed 05/04/18 @ 08:39 by Prasanth Pradhan MD) Gross hematuria (Acute) Overweight (Acute) MASOOD (obstructive sleep apnea) (Acute) non-compliant with CPAP Peripheral arterial disease (Suspected) Colovesical fistula (Acute) Large bowel anastomotic leak (Acute) Sepsis associated hypotension (Acute) Septic shock with recent abd surgeries for colovesicular fistula on 05/03 and anastamotic leak on 05/13 and 05/18. On vanc/meropenem. Now with rising wbc, Cr, and worsened pressor requirements. Had some danya in urine. 05/20 added flu conazole. Now on HD. CT done 05/21, showed worsened colitis, so added empiric po vanc and iv flagyl for cdiff coverage. Cdiff was neg, will stop the flagyl and po vanc. Wbc up, BP improving. Will follow
[2018-05-23] MEDS: Chlorhexidine 15 ML PO ×2 (10:50→21:31)
[2018-05-23] MEDS: Nystatin Powder 15gm Bottle 1 APPLIC TOPICAL ×2 (10:50→21:31)
--- NOTE | 2018-05-23 11:15 | NURSING ---
pressing machine operator present in pt room, setting up
--- NOTE | 2018-05-23 11:33 | OP.ENDO_ITS ---
05/23/2018 Gina Wong, [place] [address] [place] [address] Re : Colonoscopy procedure for Abdirizak Magaña Dear Ms. Wong This procedure was performed on May. My impressions and recommendations are as follows: Impressions : - Preparation of the colon was fair. - Diffuse mild mucosal changes were found in the descending colon secondary to pancolitis and secondary to ischemic colitis. No specimens collected. Minimal sign of ischemic colitis - The examination was otherwise normal. Recommendations : - Discharge patient to home. - Tube feeds today. - Continue present medications. - Await pathology results. - Repeat colonoscopy (date not yet determined) for surveillance. - Return to my office in 1 week. My findings are described in the full procedure note, which is enclosed. If I can be of further assistance, please feel free to contact me at Doctor phone number(s): , Fax: [phone], Work: . Sincerely, MD Prasanth Do MD 05/23/2018 11:33:24 AM This report has been signed electronically.
--- NOTE | 2018-05-23 11:41 | OP.ENDO_ITS ---
05/23/2018 Gina Wong, [place] [address] [place] [address] Re : Upper GI endoscopy procedure for Abdirizak Magaña Dear Ms. Wong This procedure was performed on May. My impressions and recommendations are as follows: Impressions : - Normal esophagus. - Normal stomach. No specimens collected. - No gross lesions in the duodenal bulb. No specimens collected. - Normal esophagus. - Normal stomach. - Feeding tube placement was successfully performed. Recommendations : - Return patient to ICU for ongoing care. - Tube feeds today. - Continue present medications. - Repeat upper endoscopy (date not yet determined) for surveillance. - Return to my office in 1 week. My findings are described in the full procedure note, which is enclosed. If I can be of further assistance, please feel free to contact me at Doctor phone number(s): , Fax: [phone], Work: . Sincerely, MD Prasanth Do MD 05/23/2018 11:40:58 AM This report has been signed electronically.
[2018-05-23 12:21] LABS: Bedside Glucose 143 mg/dL (70-110)
[2018-05-23 13:31] LABS: Pathologist Review Reviewed
[2018-05-23 13:35] LABS: Pathologist Review Reviewed
[2018-05-23 13:45] LABS: Pathologist Review Reviewed
[2018-05-23 13:52] LABS: Hemoglobin A1c 6.7 % (4.2-6.3)
--- NOTE | 2018-05-23 14:37 | CHAPLAIN ---
Type of Pastoral Visit ___ Initial Visit _x__ Follow-up Visit ___ On-call Visit ___ General Patient Visit ___ Spiritual Assessment ___ Family Conference ___ Bereavement ___ Rapid Response ___ Code Blue ___ Other (describe below) Pastoral Care Referral From ___ Patient ___ Family _x__ Nurse _x__ Physician ___ Honey Producer ___ Blue Crabber ___ Other (describe below) Sacrament/Intervention ___ Active listening ___ Anointing ___ Denominational ___ Bereavement ___ Communion ___ Valentine exploration ___ ___ Life review _x__ Prayer ___ Reconciliation ___ Sacrament of Sick _x__ Supportive presence ___ Wedding ___ Other (describe below) Pastoral Comments patient is receiving dialysis at this time but alert; pt sees this high school history teacher and folds his hands to ask for prayers; prayer given; supportive presence; pt communicates through a writing board and says never ending; offered support and ongoing prayers; stayed at bedside for a few minutes
--- NOTE | 2018-05-23 15:05 | PCM.PN.REN ---
Patient Problems: Active and Suspected Problems (Last Reviewed 05/04/18 @ 08:39 by Prasanth Pradhan MD) Gross hematuria (Acute) Overweight (Acute) MASOOD (obstructive sleep apnea) (Acute) non-compliant with CPAP Peripheral arterial disease (Suspected) Colovesical fistula (Acute) Large bowel anastomotic leak (Acute) Sepsis associated hypotension (Acute) Perforated abdominal viscus (Acute) Perforated viscus (Acute) Acute kidney injury (Acute) Subjective: events noted EGD this am BP is better now FiO2 somewhat better, PEEP still at 10 percent appears edematous - Physical Exam HEENT: Atraumatic, PERRLA, EOMI, Normocephalic Neck: Supple, No JVD, Negative Carotid Bruits Lungs: Clear to auscultation, Normal air movement Cardiovascular: Regular rate, No murmurs Abdomen: Bowel Sounds Present, Soft, Non Tender Extremities: No edema, Capillary Refill Less than 3 Seconds Skin: No rashes, No breakdown Musculoskeletal: No Tenderness to Palpation of Joints or Extremities Vital Signs Temp Pulse Resp BP Pulse Ox 98.8 F 119 H 19 H 85/61 L 96 05/23/18 15:00 05/23/18 15:00 05/23/18 15:00 05/23/18 15:00 05/23/18 15:00 Oxygen Flow Rate (L/min) 60 Oxygen Delivery Method Mechanical Ventilator Weight: 117 kg Body Mass Index (BMI) 29.9 Intake and Output for Last 24 Hours 05/21/18 05/22/18 05/23/18 23:59 23:59 23:59 Intake Total 2541.3 / 2541.3 3816.0 / 3816.0 1298.4 / 1298.4 Output Total 875 / 875 5475 / 5475 1390 / 1390 Balance 1666.3 / 1666.3 -1659.0 / -1659.0 -91.6 / -91.6 Microbiology Past 72 Hours 05/20/18 09:35 Gram Stain - Final Wound Drainage - Aerobic & Anaerobic Swabs Wound Culture - Final Presumptive C albicans Staphylococcus epidermidis Enterococcus faecalis Anaerobic Culture - Final No anaerobic bacteria isolated. 05/22/18 13:10 C. difficile DNA Amplification - Final Stool 05/17/18 07:27 Blood Culture - Final Blood Culture (Wb) - Anticubital Right No growth in 5 days. 05/17/18 08:25 Blood Culture - Final Blood Culture (Wb) - Central Line No growth in 5 days. 05/17/18 10:25 Urine Culture - Final Urine Catheter - Maldonado Danya albicans Laboratory Tests Past 24 Hrs 05/22/18 05/22/18 05/23/18 04:00 14:25 04:10 WBC 33.4 H* RBC 2.89 L Hgb 9.8 L Hct 29.3 L MCV 101.4 H MCH 33.9 H MCHC 33.4 RDW 18.3 H RDW Differential 68.0 H Plt Count 256 MPV 11.7 Neut % (Auto) Absolute Neuts (auto) 26.9 H Absolute Lymphs (auto) 0.97 Total Counted 100 Neutrophils % (Manual) 76 H Band Neutrophils % 7 H Lymphocytes % (Manual) 3 L Monocytes % (Manual) 5 Eosinophils % (Manual) Basophils % (Manual) Metamyelocytes % 3 H Myelocytes % 1 H Promyelocytes % 1 H Plasma Cell % (Manual) 3 Other Cells % 1 Nucleated RBC % Diff Path Review Reviewed Reviewed Reactive Lymphocytes Toxic Granulation 3+ Platelet Estimate ADEQUATE Plt Morphology Comment LARGE RBC Morphology N CHROM Hypochromasia Anisocytosis RARE Microcytosis Macrocytosis 1+ Absolute Retic PT INR APTT Sodium 137 Potassium 3.1 L Chloride 102 Carbon Dioxide 24.0 Anion Gap 11 BUN 48 H Creatinine 3.04 H Estim Creat Clear Calc 28.01 Est GFR (MDRD) Af Amer 27 L Est GFR (MDRD) Non-Af 22 L BUN/Creatinine Ratio 15.8 Glucose 163 H Hemoglobin A1c Calcium 7.0 L Magnesium 2.6 Random Vancomycin 05/23/18 05/23/18 05/23/18 04:10 04:10 04:10 WBC 29.9 H RBC 2.88 L Hgb 9.7 L Hct 29.3 L MCV 101.7 H MCH 33.7 H MCHC 33.1 RDW 18.4 H RDW Differential 68.7 H Plt Count 261 MPV 12.5 H Neut % (Auto) Not Reportable Absolute Neuts (auto) 25.7 H Absolute Lymphs (auto) 1.49 Total Counted 100 Neutrophils % (Manual) 83 H Band Neutrophils % 3 Lymphocytes % (Manual) 5 L Monocytes % (Manual) 5 Eosinophils % (Manual) 1 Basophils % (Manual) 1 Metamyelocytes % Myelocytes % 2 H Promyelocytes % Plasma Cell % (Manual) Other Cells % Nucleated RBC % 0.1 Diff Path Review Reviewed Reactive Lymphocytes 1+ Toxic Granulation 1+ Platelet Estimate ADEQUATE Plt Morphology Comment LARGE RBC Morphology Hypochromasia 1+ Anisocytosis 1+ Microcytosis 1+ Macrocytosis Absolute Retic 0.04 PT 18.2 H INR 1.5 APTT 48.0 H Sodium Potassium Chloride Carbon Dioxide Anion Gap BUN Creatinine Estim Creat Clear Calc Est GFR (MDRD) Af Amer Est GFR (MDRD) Non-Af BUN/Creatinine Ratio Glucose Hemoglobin A1c Calcium Magnesium Random Vancomycin 22.1 H 05/23/18 04:10 WBC RBC Hgb Hct MCV MCH MCHC RDW RDW Differential Plt Count MPV Neut % (Auto) Absolute Neuts (auto) Absolute Lymphs (auto) Total Counted Neutrophils % (Manual) Band Neutrophils % Lymphocytes % (Manual) Monocytes % (Manual) Eosinophils % (Manual) Basophils % (Manual) Metamyelocytes % Myelocytes % Promyelocytes % Plasma Cell % (Manual) Other Cells % Nucleated RBC % Diff Path Review Reactive Lymphocytes Toxic Granulation Platelet Estimate Plt Morphology Comment RBC Morphology Hypochromasia Anisocytosis Microcytosis Macrocytosis Absolute Retic PT INR APTT Sodium Potassium Chloride Carbon Dioxide Anion Gap BUN Creatinine Estim Creat Clear Calc Est GFR (MDRD) Af Amer Est GFR (MDRD) Non-Af BUN/Creatinine Ratio Glucose Hemoglobin A1c 6.7 H Calcium Magnesium Random Vancomycin POC Glucose 05/23/18 05/23/18 05/22/18 12:18 05:41 23:07 POC Glucose 143 H 165 H 167 H 05/22/18 18:34 POC Glucose 166 H Medical Necessity - Tobacco Use Smoking Status: Current every day smoker Tobacco Use: Cigarettes Assessment/Plan All Active Problems (Last Reviewed 05/04/18 @ 08:39 by Prasanth Pradhan MD) Gross hematuria (Acute) Overweight (Acute) MASOOD (obstructive sleep apnea) (Acute) Colovesical fistula (Acute) Large bowel anastomotic leak (Acute) Sepsis associated hypotension (Acute) Perforated abdominal viscus (Acute) Perforated viscus (Acute) Acute kidney injury (Acute) OVI. likely ATN from sepsis. he was admitted with colovesical fistula, s/p sigmoid resection, fistula closure with laparotomy. repeat exploration due to anastamotic leak and repair of jejunal perforation Hypokalemia. UF only today, replete K IV or through TPN PLan seen on dialysis today. see orders/ flowsheets Use sodium modeling, cool dialysate to try for fluid removal, at least 2-3 L if not more overall still 14 L positive since admission, looks edematous WBC is better
[2018-05-23] MEDS: Heparin 10,000 UNITS/10 ML Vial IV (17:17)
--- NOTE | 2018-05-23 17:45 | DIALYSIS ---
Hemodialysis completed as ordered x 5 hours today at slow flows. delay initiating d/t hypotension. -2800ml off and stable while on with no further adjustment to pressor meds after tx initiated. CVC closed with Heparin to each lumen fill volume. Report to Christie at bedside.
[2018-05-23 17:51] LABS: Bedside Glucose 145 mg/dL (70-110)
[2018-05-23] MEDS: Menthol/Lanolin/Calamine/Znox 113 GM Tube 1 APPLIC TOPICAL (21:30)
[2018-05-24] VITALS (68 sets, daily range): BP systolic 26–101; BP diastolic 20–63; PULSE 71–150; RESP 12–111; TEMP 37.1–37.5; O2SAT 39–100
[2018-05-24] LABS: Bedside Glucose 171 mg/dL (70-110)
--- NOTE | 2018-05-24 | IMM_PTH ---
PATIENT: SABRA DAVID LOC: [facility] U#:[id number] AGE/SX: 62/M ROOM: ICU03 RE05/03/[address]: Dr. Catalina Whatley MD : 1955 BED: 1 DIS: 05/24/2018 SPEC #: [id number] RECD: 05/28/18 12:21 STATUS: JJ REQ #: [id number] LAMBERTO: 05/24/18 00:[address]: Markie Kent DEPT: IMMUNOHISTOCHEMISTRY RECD BY: Angeles Peña ENTERED: 05/28/18 12:22 SP TYPE: IMMUNO OTHR DR: MD Dr. Tomas Villegas MD Dr. Cyril Ofori, MD Dr. Mary Catherine Sementi, DO Dr. Daniel Peabody, MD Dr. Jayaprakas Dasari, MD Dr. Juan Miguel Proano, MD Dr. Robert Leininger, MD Mary Ciesa, DAMPER FITTER-C Tissues: A - Colon, NOS Procedures: Peewee Ret (add) DESMIN (add) FROYLAN (add) MACRO (add) P53 (add) Vimentin (add) Pankeratin (initial) Comments: @ Ordering doctor for CALRET. edited from to @ by RGOBRANDON at 05/28/18 1223 @ Ordering doctor for DESMIN. edited from to @ by RGOOD at 05/28/18 1223 @ Ordering doctor for FROYLAN. edited from to @ by RGOOD at 05/28/18 1223 @ Ordering doctor for P53. edited from to @ by RGOOD at 05/28/18 1223 @ Ordering doctor for VIM. edited from to @ by RGOOD at 05/28/18 1223 @ Ordering doctor for DELTA edited from to @ tonja REY at 05/28/18 1223 @ Submitting doctor edited from to @ by RGOOD at 05/28/18 1223 PHYSICIAN & INSTITUTION [place] [id number] SPECIMEN INFORMATION: Tissue Source: A - Colon Clinical Info: Colonic ischemia, sepsis Specimen Number: [id number] CPT code: 91951, 58944 x6 METHODOLOGY: Deparaffinized sections of prefer/formalin-fixed tissue or PAP/DQ stained slides are incubated with monoclonal/polyclonal antibodies/oligonucleotide probes. Localization is made via biotin free immunoperoxidase method. Appropriate controls are performed and reacted as expected. Results on target cell population are indicated in the following table: RESULTS: ANTIBODY / CLONE RESULT Block A3 AE1-3 (AE1/AE3/PCK26) positive CALRET (polyclonal) positive Vimentin (V9) positive FROYLAN (E29) negative Desmin (CE-R-11) negative P53 (DO-7) negative Macro (HAM-56) positive These tests were developed and their performance characteristics determined by [facility]. They may not have been cleared or approved by the [place]. Food and Drug Administration. The FDA has determined that such clearance or approval is not necessary. INTERPRETATION: A. Colon: Acute serositis with associated reactive change. AM:pietro 05/30/18
--- NOTE | 2018-05-24 | COL_PTH ---
PATIENT: SABRA DAVID LOC: [facility] U#:[id number] AGE/SX: 62/M ROOM: ICU03 RE05/03/[address]: Dr. Catalina Whatley MD : 1955 BED: 1 DIS: 05/24/2018 SPEC #: [id number] RECD: 05/24/18 13:38 STATUS: JJ RE #: [id number] LAMBERTO: 05/24/18 00:[address]: Markie Kent DEPT: SURGICAL PATHOLOGY RECD BY: Alejo Isabel ENTERED: 05/24/18 14:22 SP TYPE: COLON OTHR DR: MD Dr. Tomas Villegas MD Dr. Cyril Ofori, MD Dr. Mary Catherine Sementi, DO Dr. Jayaprakas Dasari, MD Dr. Juan Miguel Proano, MD Dr. Linda Wang, MD Dr. Robert Leininger, MD Mary Ciesa, RUNNING SPECIALIST-C Tissues: A - Colon, NOS B - Gallbladder, NOS Procedures: Surgery Specimen Level III Surgery Specimen Level IV Surgery Specimen Level V HEADER OPERATION: Exploratory laparotomy with total abdominal colectomy; cholecystectomy PRE-OP DIAGNOSIS: Colonic ischemia, sepsis TISSUE SUBMITTED: A - Colon, B - Gallbladder MICROSCOPIC DIAGNOSIS A. Colon, total abdominal colectomy with segmental small bowel resection: Acute and chronic serositis with focal microabscesses, fibrinoid degeneration and associated reparative and reactive change. Massive submucosal edema. Appendix with no significant pathologic change. Four out of four lymph nodes with no pathologic change. Margins of excision with no pathologic change. See comment. Omentum, partial excision: Acute and chronic inflammation, microabscess formation and fibrinoid degeneration. B. Gallbladder, cholecystectomy: Acute and chronic cholecystitis. AM:pietro 05/28/18 COMMENT A. Immunohistochemistry ([id number]) supports the above diagnosis. The entire serosal surface includes small and large bowel and periappendiceal soft tissue contains acute and chronic serositis with benign histiocytic proliferation, focal microabscess formation, massive edema and reparative and reactive change. Clinical correlation is necessary. 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 Case has been reviewed in consultation with Dr. Tinsley who concurs with the above diagnosis. IDC:DESTIN MICROSCOPIC DESCRIPTION Slides are reviewed. GROSS DESCRIPTION A - Received is one container labeled with the patient's name and not further designated. The specimen consists of a 27 cm segment of small bowel with attached 68 cm of large bowel and attached 7 cm of appendix that has an average diameter of 0.7 cm. No gross perforations are evident. The specimen is surrounded by dense [id number] fibrofatty tissue. The small bowel mucosa is thrown into normal folds. No mucosal mass lesions are identified. The ileocecal valve is grossly unremarkable. The colon segment is cobblestoned and edematous. The distal portion of the bowel is sutured and contains a thin rim of march skin measuring 8.5 x 0.6 cm. No distinct mass lesions are identified. Serial sections do not reveal perforation. Serial sections of the attached fibrofatty tissue reveal multiple grossly unremarkable lymph nodes. The pericolic fibrofatty tissue in areas is soft and grayish-march in color. Serial sections of the appendix reveal a patent lumen. Also attached to the large bowel is an irregular fragment of omentum measuring 21 x 19 x 4 cm. Serial sections of the omentum do not reveal mass lesions. Biometric Screener sections are submitted as follows: 1 - proximal and distal mucosal margins, 2 - ileocecal valve, 3 - appendix, 4 - apparel trimmings sales representative section of small bowel, 5 - apparel trimmings sales representative pericolic lymph nodes, 6-10 - apparel trimmings sales representative sections of large bowel, 11 - pericolic fatty tissue, 12 - omentum. B - Received is one container labeled with the patient's name and designated gallbladder. The specimen consists of an open gallbladder measuring 12 x 8 x 2.5 cm. The external surface is smooth and glistening. Focally, it is granular, hemorrhagic and contains cautery artifact. The lumen of the gallbladder contains yellow-green mucoid bile and no calculi. The mucosa is bile-stained and without any mass lesions. A distinct bile duct is not identified. The gallbladder wall averages 0.4 cm in thickness and is free of mass lesions. Biometric Screener sections of the gallbladder and the cystic duct are submitted in one cassette. / AM:pietro 05/27/18 TC:2 CPT: 82229, 15616, 58020
[2018-05-24] MEDS: CHLORHEXIDINE GLUC 2% CLOTH 1 EACH TOWELETTE TOPICAL (03:44)
[2018-05-24] MEDS: fentaNYL drip 100 ML 5 MCG IV ×2 (05:29→16:03)
[2018-05-24] MEDS: Insulin Lispro 100 UNIT/ML INSULN.PEN SC ×2 (05:41→11:11)
[2018-05-24 05:45] LABS: Bedside Glucose 185 mg/dL (70-110)
--- NOTE | 2018-05-24 06:36 | PCM.PN.INT ---
Subjective: The patient was seen and examined at the bedside this morning. Events from the last 24 hours have been reviewed. The patient did have a transient fever yesterday morning shortly after upper endoscopy with a T-max of 38.4 ?C. He remains hemodynamically stable on vasopressin and Levophed. His Levophed requirement remained steady at 20 mcg. He remains on an FiO2 of 50% and PEEP of 10, which is currently being weaned. The patient did tolerate hemodialysis yesterday and had 2.8 L of fluid removed. He essentially remains anuric. Potassium is low this morning at 3.3. Objective: The patient's most recent lab work, culture data and imaging studies have all been personally reviewed. A transesophageal echocardiogram from August 2017 revealed evidence of a moderately severe global LV systolic dysfunction with an ejection fraction of 30%. There is also evidence of moderate global RV systolic dysfunction. There was moderate aortic valve stenosis. General: - - The patient is alert and appropriately interactive. He remains intubated and mechanically ventilated. HEENT: Atraumatic, PERRLA, Normocephalic, - - CorPak in place Oral: Moist Mucosa, - - Endotracheal tube in place Neck: Supple, No Nodes, Trachea Midline, - - Right IJ temporary hemodialysis catheter. Left triple-lumen catheter in place Lungs: No rhonchi, No wheeze, No rales, Diminished Cardiovascular: Normal S1, Normal S2, No murmurs, Tachycardic Abdomen: - - No significant change from previous Extremities: - - Anasarca present Skin: - - No significant change from previous Musculoskeletal: No Tenderness to Palpation of Joints or Extremities Lymphatic: No Cervical, Supraclavicular, or Inguinal Adenopathy Neurological: Neuro grossly intact Psych/Mental Status: Flat Affect Vital Signs Temp Pulse Resp BP Pulse Ox 37.5 C H 106 H 16 92/62 95 05/24/18 04:00 05/24/18 06:00 05/24/18 06:00 05/24/18 06:00 05/24/18 06:00 Oxygen Flow Rate (L/min) 60 Oxygen Delivery Method Mechanical Ventilator Weight: 252 lb 3.341 oz Body Mass Index (BMI) 29.9 Finger Stick Blood Glucose 185 Intake and Output for Last 24 Hours 05/22/18 05/23/18 05/24/18 23:59 23:59 23:59 Intake Total 3816.0 / 3816.0 2617.8 / 2617.8 543.5 / 543.5 Output Total 5475 / 5475 4558 / 4558 185 / 185 Balance -1659.0 / -1659.0 -1940.2 / -1940.2 358.5 / 358.5 Labs (Last 48 Hours) 05/20/18 05/22/18 05/22/18 19:00 04:00 05:38 WBC RBC Hgb Hct MCV MCH MCHC RDW RDW Differential Plt Count MPV Neut % (Auto) Absolute Neuts (auto) Absolute Lymphs (auto) Total Counted Neutrophils % (Manual) Band Neutrophils % Lymphocytes % (Manual) Monocytes % (Manual) Eosinophils % (Manual) Basophils % (Manual) Metamyelocytes % Myelocytes % Promyelocytes % Plasma Cell % (Manual) Other Cells % Nucleated RBC % Diff Path Review Reviewed Reactive Lymphocytes Toxic Granulation Platelet Estimate Plt Morphology Comment RBC Morphology Hypochromasia Anisocytosis Microcytosis Macrocytosis Absolute Retic PT INR APTT Sodium Potassium Chloride Carbon Dioxide Anion Gap BUN Creatinine Estim Creat Clear Calc Est GFR (MDRD) Af Amer Est GFR (MDRD) Non-Af BUN/Creatinine Ratio Glucose Hemoglobin A1c Calcium Magnesium Random Vancomycin 14.4 Hep Bs Antigen Negative Hep Bs Antibody Non Reactive Hep B Core Total Ab Negative POC Glucose 05/22/18 05/22/18 05/22/18 09:45 09:45 13:01 WBC RBC Hgb 9.8 L Hct 28.8 L MCV MCH MCHC RDW RDW Differential Plt Count MPV Neut % (Auto) Absolute Neuts (auto) Absolute Lymphs (auto) Total Counted Neutrophils % (Manual) Band Neutrophils % Lymphocytes % (Manual) Monocytes % (Manual) Eosinophils % (Manual) Basophils % (Manual) Metamyelocytes % Myelocytes % Promyelocytes % Plasma Cell % (Manual) Other Cells % Nucleated RBC % Diff Path Review Reactive Lymphocytes Toxic Granulation Platelet Estimate Plt Morphology Comment RBC Morphology Hypochromasia Anisocytosis Microcytosis Macrocytosis Absolute Retic PT INR APTT 50.3 H Sodium Potassium Chloride Carbon Dioxide Anion Gap BUN Creatinine Estim Creat Clear Calc Est GFR (MDRD) Af Amer Est GFR (MDRD) Non-Af BUN/Creatinine Ratio Glucose Hemoglobin A1c Calcium Magnesium Random Vancomycin Hep Bs Antigen Hep Bs Antibody Hep B Core Total Ab POC Glucose 179 H 05/22/18 05/22/18 05/22/18 14:25 18:34 23:07 WBC 33.4 H* RBC 2.89 L Hgb 9.8 L Hct 29.3 L MCV 101.4 H MCH 33.9 H MCHC 33.4 RDW 18.3 H RDW Differential 68.0 H Plt Count 256 MPV 11.7 Neut % (Auto) Not Reportable Absolute Neuts (auto) 26.9 H Absolute Lymphs (auto) 0.97 Total Counted 100 Neutrophils % (Manual) 76 H Band Neutrophils % 7 H Lymphocytes % (Manual) 3 L Monocytes % (Manual) 5 Eosinophils % (Manual) Basophils % (Manual) Metamyelocytes % 3 H Myelocytes % 1 H Promyelocytes % 1 H Plasma Cell % (Manual) 3 Other Cells % 1 Nucleated RBC % Diff Path Review Reviewed Reactive Lymphocytes Toxic Granulation 3+ Platelet Estimate ADEQUATE Plt Morphology Comment LARGE RBC Morphology N CHROM Hypochromasia Anisocytosis RARE Microcytosis Macrocytosis 1+ Absolute Retic PT INR APTT Sodium Potassium Chloride Carbon Dioxide Anion Gap BUN Creatinine Estim Creat Clear Calc Est GFR (MDRD) Af Amer Est GFR (MDRD) Non-Af BUN/Creatinine Ratio Glucose Hemoglobin A1c Calcium Magnesium Random Vancomycin Hep Bs Antigen Hep Bs Antibody Hep B Core Total Ab POC Glucose 166 H 167 H 05/23/18 05/23/18 05/23/18 04:10 04:10 04:10 WBC 29.9 H RBC 2.88 L Hgb 9.7 L Hct 29.3 L MCV 101.7 H MCH 33.7 H MCHC 33.1 RDW 18.4 H RDW Differential 68.7 H Plt Count 261 MPV 12.5 H Neut % (Auto) Not Reportable Absolute Neuts (auto) 25.7 H Absolute Lymphs (auto) 1.49 Total Counted 100 Neutrophils % (Manual) 83 H Band Neutrophils % 3 Lymphocytes % (Manual) 5 L Monocytes % (Manual) 5 Eosinophils % (Manual) 1 Basophils % (Manual) 1 Metamyelocytes % Myelocytes % 2 H Promyelocytes % Plasma Cell % (Manual) Other Cells % Nucleated RBC % 0.1 Diff Path Review Reviewed Reactive Lymphocytes 1+ Toxic Granulation 1+ Platelet Estimate ADEQUATE Plt Morphology Comment LARGE RBC Morphology Hypochromasia 1+ Anisocytosis 1+ Microcytosis 1+ Macrocytosis Absolute Retic 0.04 PT INR APTT Sodium 137 Potassium 3.1 L Chloride 102 Carbon Dioxide 24.0 Anion Gap 11 BUN 48 H Creatinine 3.04 H Estim Creat Clear Calc 28.01 Est GFR (MDRD) Af Amer 27 L Est GFR (MDRD) Non-Af 22 L BUN/Creatinine Ratio 15.8 Glucose 163 H Hemoglobin A1c Calcium 7.0 L Magnesium 2.6 Random Vancomycin 22.1 H Hep Bs Antigen Hep Bs Antibody Hep B Core Total Ab POC Glucose 05/23/18 05/23/18 05/23/18 04:10 04:10 05:41 WBC RBC Hgb Hct MCV MCH MCHC RDW RDW Differential Plt Count MPV Neut % (Auto) Absolute Neuts (auto) Absolute Lymphs (auto) Total Counted Neutrophils % (Manual) Band Neutrophils % Lymphocytes % (Manual) Monocytes % (Manual) Eosinophils % (Manual) Basophils % (Manual) Metamyelocytes % Myelocytes % Promyelocytes % Plasma Cell % (Manual) Other Cells % Nucleated RBC % Diff Path Review Reactive Lymphocytes Toxic Granulation Platelet Estimate Plt Morphology Comment RBC Morphology Hypochromasia Anisocytosis Microcytosis Macrocytosis Absolute Retic PT 18.2 H INR 1.5 APTT 48.0 H Sodium Potassium Chloride Carbon Dioxide Anion Gap BUN Creatinine Estim Creat Clear Calc Est GFR (MDRD) Af Amer Est GFR (MDRD) Non-Af BUN/Creatinine Ratio Glucose Hemoglobin A1c 6.7 H Calcium Magnesium Random Vancomycin Hep Bs Antigen Hep Bs Antibody Hep B Core Total Ab POC Glucose 165 H 05/23/18 05/23/18 05/23/18 12:18 17:43 23:43 WBC RBC Hgb Hct MCV MCH MCHC RDW RDW Differential Plt Count MPV Neut % (Auto) Absolute Neuts (auto) Absolute Lymphs (auto) Total Counted Neutrophils % (Manual) Band Neutrophils % Lymphocytes % (Manual) Monocytes % (Manual) Eosinophils % (Manual) Basophils % (Manual) Metamyelocytes % Myelocytes % Promyelocytes % Plasma Cell % (Manual) Other Cells % Nucleated RBC % Diff Path Review Reactive Lymphocytes Toxic Granulation Platelet Estimate Plt Morphology Comment RBC Morphology Hypochromasia Anisocytosis Microcytosis Macrocytosis Absolute Retic PT INR APTT Sodium Potassium Chloride Carbon Dioxide Anion Gap BUN Creatinine Estim Creat Clear Calc Est GFR (MDRD) Af Amer Est GFR (MDRD) Non-Af BUN/Creatinine Ratio Glucose Hemoglobin A1c Calcium Magnesium Random Vancomycin Hep Bs Antigen Hep Bs Antibody Hep B Core Total Ab POC Glucose 143 H 145 H 171 H 05/24/18 05/24/18 05/24/18 05:40 06:05 06:05 WBC RBC Hgb Hct MCV MCH MCHC RDW RDW Differential Plt Count MPV Neut % (Auto) Absolute Neuts (auto) Absolute Lymphs (auto) Total Counted Neutrophils % (Manual) Band Neutrophils % Lymphocytes % (Manual) Monocytes % (Manual) Eosinophils % (Manual) Basophils % (Manual) Metamyelocytes % Myelocytes % Promyelocytes % Plasma Cell % (Manual) Other Cells % Nucleated RBC % Diff Path Review Reactive Lymphocytes Toxic Granulation Platelet Estimate Plt Morphology Comment RBC Morphology Hypochromasia Anisocytosis Microcytosis Macrocytosis Absolute Retic PT INR APTT Sodium Pending Potassium Pending Chloride Pending Carbon Dioxide Pending Anion Gap Pending BUN Pending Creatinine Pending Estim Creat Clear Calc Est GFR (MDRD) Af Amer Pending Est GFR (MDRD) Non-Af Pending BUN/Creatinine Ratio Pending Glucose Pending Hemoglobin A1c Calcium Pending Magnesium Random Vancomycin Pending Hep Bs Antigen Hep Bs Antibody Hep B Core Total Ab POC Glucose 185 H 05/24/18 06:05 WBC Pending RBC Pending Hgb Pending Hct Pending MCV Pending MCH Pending MCHC Pending RDW Pending RDW Differential Pending Plt Count Pending MPV Neut % (Auto) Pending Absolute Neuts (auto) Pending Absolute Lymphs (auto) Total Counted Pending Neutrophils % (Manual) Band Neutrophils % Lymphocytes % (Manual) Monocytes % (Manual) Eosinophils % (Manual) Basophils % (Manual) Metamyelocytes % Myelocytes % Promyelocytes % Plasma Cell % (Manual) Other Cells % Nucleated RBC % Diff Path Review Reactive Lymphocytes Toxic Granulation Platelet Estimate Plt Morphology Comment RBC Morphology Hypochromasia Anisocytosis Microcytosis Macrocytosis Absolute Retic PT INR APTT Sodium Potassium Chloride Carbon Dioxide Anion Gap BUN Creatinine Estim Creat Clear Calc Est GFR (MDRD) Af Amer Est GFR (MDRD) Non-Af BUN/Creatinine Ratio Glucose Hemoglobin A1c Calcium Magnesium Random Vancomycin Hep Bs Antigen Hep Bs Antibody Hep B Core Total Ab POC Glucose Microbiology 05/20/18 09:35 Wound Drainage - Aerobic & Anaerobic Swabs Gram Stain - Final 05/20/18 09:35 Wound Drainage - Aerobic & Anaerobic Swabs Wound Culture - Final Presumptive C albicans Staphylococcus epidermidis Enterococcus faecalis 05/20/18 09:35 Wound Drainage - Aerobic & Anaerobic Swabs Anaerobic Culture - Final No anaerobic bacteria isolated. 05/22/18 13:10 Stool C. difficile DNA Amplification - Final 05/17/18 07:27 Blood Culture (Wb) - Anticubital Right Blood Culture - Final No growth in 5 days. 05/17/18 08:25 Blood Culture (Wb) - Central Line Blood Culture - Final No growth in 5 days. Clinical Impression(s) from Imaging Studies Abdomen/Pelvis CT 05/03/18 07:41 IMPRESSION: Large bladder mass as described causing a marked degree of bladder dilatation. Air is seen within the urinary bladder. This may be related to Maldonado catheter manipulation. If not, a colovesical fistula should be ruled out. Electronically Signed: Johnny Neil MD at 9:02 EST , Service support , Chest X-Ray 05/03/18 09:37 IMPRESSION: Mild cardiomegaly. Electronically Signed: Johnny Neil MD at 10:05 EST , Service support , Abdomen/Pelvis CT 05/04/18 07:00 IMPRESSION: Evaluation was performed to evaluate for a colovesical fistula. Please note that a study prior to injection of rectal contrast was not performed. This somewhat limits evaluation. There is hyperdense material in the bladder at time of prior study May 03, 2018 which most likely represented a hematoma. On today's examination again noted is gas as well as hyperdense material within the bladder. There is intimate association with a segment of the sigmoid colon with the urinary bladder. There is a small focus of gas within the bladder at this region. Findings would be concerning for a colovesical fistula. Correlate with urinalysis. Interval placement of a Maldonado catheter. The previously noted bladder hyperdense masslike lesion has significantly decreased in size. Likely representing a large hematoma. Recommend follow-up to ensure resolution. Diverticulosis is present. There is some thickening of the sigmoid colon with some stranding concerning for diverticulitis. Infrarenal abdominal aortic aneurysm. Decreasing right hydronephrosis. Evidence of prior granulomatous disease. Bilateral nephrolithiasis. Electronically Signed: Dawood Marksford, at 7:57 EST Tel , Service support , Chest X-Ray 05/10/18 05:55 IMPRESSION: Atelectasis and/or infiltrates at the lung bases worse on the left side with blunting of left costophrenic angle. Electronically Signed: Johnny Neil MD at 9:43 EST , Service support , Chest X-Ray 05/12/18 16:45 IMPRESSION: 1. Decreased bibasilar atelectasis. No organizing infiltrates seen. 2. Gaseous distention of bowel in the upper abdomen, incompletely visualized. 3. Mild cardiomegaly. Electronically Signed: Tunde Cole MD at 17:03 EST , Service support , Abdomen/Pelvis CT 05/13/18 10:28 IMPRESSION: Small bilateral pleural effusions with bibasilar infiltrates and/or atelectasis. Small amount of perihepatic as well as perisplenic fluid as well as fluid in the pelvis. Small amount of fluid in the Colic gutters. Postoperative changes in the region of the umbilicus there Distention of the ascending colon and transverse colon and descending colon down to the region of the anastomosis at the rectosigmoid junction. A Maldonado catheter seen within the urinary bladder. Electronically Signed: Johnny Neil MD at 13:48 EST , Service support , Chest X-Ray 05/13/18 14:18 IMPRESSION: The tip of the right internal jugular venous catheter is in the proximal portion of the superior vena cava. There is no evidence of pneumothorax. Stable appearance of the lungs. Electronically Signed: Johnny Neil MD at 15:52 EST , Service support , Chest X-Ray 05/13/18 19:24 IMPRESSION: Interval placement endotracheal and enteric tubes as above. at 1955 Reported and signed by: Jason Goins MD Electronically Signed: Jason Goins, at 19:54 EST Tel , Service support , Chest X-Ray 05/16/18 09:45 IMPRESSION: Mild degree of increased markings at the lung bases. Free intraperitoneal air with the dilatation of the colon. Electronically Signed: Johnny Jolynn, at 14:24 EST , Service support , Abdomen CT 05/17/18 11:30 IMPRESSION: 1. Extensive free air and mild free fluid in the anterior abdomen, concerning for possible anastomotic leak. Open wound may be contributory. 2. Dilated small bowel with gradual transition in the pelvis, possibly due to adhesions. 3. Gas in decompressed bladder may be due to catheter placement or fistula. 4. Small pleural effusions. 5. A 3.2 cm infrarenal AAA. 6. Left femoral head collapse, likely secondary to avascular necrosis. Dr. Mayorga discussed the findings with Dr. Woo at 5:28 PM. N.B. : The above information has been verbally conveyed by Aleena Mayorga MD to Dr. Gerardo Woo MD, on 05/17/2018 17:29:57 (ET). Electronically Signed: Aleena Mayorga MD at 17:31 EST Tel , Service support , ADDENDUM: 05/17/18 1738 IMPRESSION: 1. Extensive free air and mild free fluid in the anterior abdomen, concerning for possible anastomotic leak. Open wound may be contributory. 2. Dilated small bowel with gradual transition in the pelvis, possibly due to adhesions. 3. Gas in decompressed bladder may be due to catheter placement or fistula. 4. Small pleural effusions. 5. A 3.2 cm infrarenal AAA. 6. Left femoral head collapse, likely secondary to avascular necrosis. Dr. Mayorga discussed the findings with Dr. Woo at 5:28 PM. N.B. : The above information has been verbally conveyed by Aleena Mayorga MD to Dr. Gerardo Woo MD, on 05/17/2018 17:29:57 (ET). Electronically Signed: Aleena Mayorga MD at 17:31 EST Tel , Service support , KUB X-Ray 05/17/18 22:56 IMPRESSION: NG tube terminates in the gastric antrum. Electronically Signed: Aleena Mayorga MD at 23:58 EST Tel , Service support , Abdomen CT 05/17/18 22:59 IMPRESSION: Large amount of free intraperitoneal air and moderate free fluid similar to previous. As noted on the prior study, this is more than is normally seen postoperatively and is concerning for bowel perforation or perhaps wound dehiscence. No extraluminal enteric contrast identified. However there is pneumatosis and wall thickening of the ascending colon with immediately adjacent foci of extraluminal air; suspicious for perforation here. Enteric contrast has not yet reached this loop of bowel. Slight interval worsening of bibasal atelectasis versus pneumonia. Several other chronic findings as above similar to prior. Individualized dose optimization techniques were used for this CT. at 0042 Reported and signed by: Jason Goins MD Electronically Signed: Jason Goins, at 0:40 EST Tel , Service support , ADDENDUM: 05/18/18 0052 IMPRESSION: Large amount of free intraperitoneal air and moderate free fluid similar to previous. As noted on the prior study, this is more than is normally seen postoperatively and is concerning for bowel perforation or perhaps wound dehiscence. No extraluminal enteric contrast identified. However there is pneumatosis and wall thickening of the ascending colon with immediately adjacent foci of extraluminal air; suspicious for perforation here. Enteric contrast has not yet reached this loop of bowel. Slight interval worsening of bibasal atelectasis versus pneumonia. Several other chronic findings as above similar to prior. Individualized dose optimization techniques were used for this CT. at 0042 Reported and signed by: Jason Goins MD N.B. : The above information has been verbally conveyed by Jason Goins to Yoly Gallo RN, on 05/18/2018 00:45:57 (ET). Electronically Signed: Jason Goins, at 0:40 EST Tel , Service support , Chest X-Ray 05/18/18 04:38 IMPRESSION: Compressive atelectasis in the right and left lung lower lobes. Small bilateral pleural effusions. Electronically Signed: Constanza Archer, at 7:53 EST Tel , Service support , Chest X-Ray 05/20/18 00:20 IMPRESSION: Compressive atelectasis in the right and left lung lower lobes. Small bilateral pleural effusions. Electronically Signed: Constanza Archer, at 0:52 EST Tel , Service support , Chest X-Ray 05/20/18 15:09 IMPRESSION: Endotracheal tube in a grossly satisfactory position. Cardiomegaly. Right pleural effusion, cannot exclude associated right basilar atelectasis and/or pneumonia. Pulmonary venous congestion with possible associated interstitial edema. Electronically Signed: Shelbi Peacock MD at 16:17 EST Tel , Service support , Chest X-Ray 05/20/18 15:55 IMPRESSION: Stable examination as detailed above. Electronically Signed: Shelbi Peacock MD at 16:47 EST Tel , Service support , Abdomen CT 05/21/18 06:56 IMPRESSION: Since prior study, there is been progressive circumferential wall thickening of the colon suggestive of colitis. Increased markings in the peritoneal fat. Progressive infiltrates in the lower lobes with small bilateral pleural effusions. Minimal residual free air. Electronically Signed: Johnny Neil, at 10:39 EST , Service support , Medical Necessity - Tobacco Use Smoking Status: Current every day smoker Tobacco Use: Cigarettes Assessment/Plan All Active Problems (Last Reviewed 05/04/18 @ 08:39 by Prasanth Pradhan MD) Gross hematuria (Acute) Overweight (Acute) MASOOD (obstructive sleep apnea) (Acute) Colovesical fistula (Acute) Large bowel anastomotic leak (Acute) Sepsis associated hypotension (Acute) Perforated abdominal viscus (Acute) Perforated viscus (Acute) Acute kidney injury (Acute) RECOMMENDATIONS: 1. Continue broad-spectrum antibiotics, per infectious diseases recommendations. 2. Continue vasopressor support as ordered. Wean as tolerated to maintain a mean arterial pressure at or above 65 mmHg. 3. Continued potassium repletion. 4. Continue TPN. 5. Start scheduled midodrine today. 6. Continue appropriate ICU prophylaxis. 7. Continue to wean FiO2 as tolerated to maintain an oxygen saturation at or above 90%. 8. Continue hemodialysis per nephrology recommendations. IMPRESSIONS: 1. Septic shock secondary to perforated viscus s/p exploratory laparotomy and repair of perforated jejunum The patient is currently on broad-spectrum antimicrobials. Infectious diseases is following. He remains on dual vasopressor support in an attempt to maintain hemodynamic stability. This will be continued in an attempt to maintain a mean arterial pressure at or above 65 mmHg. I recommended judicious use of supplemental IV fluids, given the patient's underlying cardiomyopathy and current volume overloaded state. TPN will be continued for nutritional support. Will add midodrine to medication regimen in hopes of weaning from IV vasopressor support. 2. Acute respiratory failure The patient returns to the ICU following surgery on invasive mechanical ventilation. At this time, the patient's clinical state is far too tenuous to consider aggressive weaning from mechanical ventilatory support. Unfortunately, the patient will likely need some form of volume optimization in order to wean his FiO2. Nephrology is following to assist with volume optimization through hemodialysis. 3. Coronary artery disease/chronic systolic heart failure Continue current medical therapy. Continue to hold Lasix and beta-bravo. 4. Paroxysmal atrial fibrillation/chronic anticoagulation status/lower extremity DVT The patient's anticoagulation was fully reversed in preparation for surgery. Given his tenuous clinical status, recommend continuing heparin drip as ordered. 5. Hypokalemia Electrolyte repletion has been ordered. Recommend rechecking levels in the morning. 6. Acute kidney injury Improving. Likely prerenal in etiology and related to ischemic ATN in the setting of #1. Will continue current supportive measures as noted above. Nephrology is currently following. Will defer need for ongoing hemodialysis to nephrology. 7. History of obstructive sleep apnea The patient reports a history of noncompliance with the use of nocturnal Pap therapy. TIME: 45 minutes of critical care time, independent of procedures, was spent addressing the patient's septic shock, perforated viscus, acute respiratory failure, coronary artery disease, biventricular heart failure, paroxysmal atrial fibrillation, hypokalemia, acute kidney injury, review of all data and collaboration with the care team. ([id number]) Code Visit [id number]: [id number] Critical care first hour
[2018-05-24 06:48] LABS: Hematocrit 28.4 % (40-54); Hemoglobin 9.5 g/dl (13.0-16.5); Mean Corp Hgb Conc 33.5 g/gl (32-36); Mean Corpuscular Hgb 33.8 pg (27.0-32.0); Mean Corpuscular Volume 101.1 fL (80-94); Mean Platelet Vol. 13.1 fl (6.2-12.0); Platelet Count 232 K/mm3 (150-450); RBC Distribution Width CV 18.5 % (11.6-14.6); RBC Distribution Width SD 68.1 fl (35.1-43.9); Red Blood Count 2.81 M/mm3 (4.6-6.2)
[2018-05-24 06:50] LABS: Differential Indicated MANUAL DIFF; POSITIVE COUNT YES; POSITIVE DIFFERENTIAL YES; POSITIVE MORPHOLOGY YES
[2018-05-24 06:51] LABS: White Blood Count 32.7 K/mm3 (4.4-11.0)
[2018-05-24 06:55] LABS: Anion Gap 8 (5-15); BUN 42 mg/dL (7-18); BUN/Creat Ratio 12.5 RATIO (10-20); Chloride 105 mmol/L (98-107); Creatinine, Serum 3.36 mg/dL (0.70-1.30); EST Glomerular Filtration Rate 20 mL/min (>60); Est Glom Filt Rate - Afr Amer 24 mL/min (>60); Estimated Creatinine Clearance 25.34 ml/min; Glucose 183 mg/dL (74-106); Potassium 3.3 mmol/L (3.5-5.1); Sodium Level 137 mmol/L (136-145)
[2018-05-24 06:58] LABS: Vancomycin, Random Level 17.9 ug/mL (0.0-15.0)
[2018-05-24 07:16] LABS: Lymphocyte 5 % (19-41); Metamyelocyte 2 % (0-1); Monocyte 2 % (0-10); Myelocyte 1 (0-0); Neutrophil-Band 2 % (0-5); Neutrophil-Segmented 87 % (47-70); Plasma Cell 1 %; Total Cells Counted 100 (MANUAL DIFF)
[2018-05-24 07:17] LABS: Anisocytosis 1+; Hypochromasia 1+; Microcytosis 1+; Reactive Lymphocyte 1+; Toxic Granulation 1+; Vacuolated Cells RARE
[2018-05-24 07:18] LABS: Platelet Estimate ADEQUATE (ADEQ); Platelet Morphology LARGE; Polychromasia RARE
[2018-05-24 07:19] LABS: Absolute Lymphocyte Count 1.64 X10^3/ul (0.83-4.51); Absolute Neutrophil Count 29.1 X10^3/uL (2.0-7.7)
--- NOTE | 2018-05-24 07:30 | PCM.PN.SRG ---
Patient Problems: Active and Suspected Problems (Last Reviewed 05/04/18 @ 08:39 by Prasanth Pradhan MD) Gross hematuria (Acute) Overweight (Acute) MASOOD (obstructive sleep apnea) (Acute) non-compliant with CPAP Peripheral arterial disease (Suspected) Colovesical fistula (Acute) Large bowel anastomotic leak (Acute) Sepsis associated hypotension (Acute) Perforated abdominal viscus (Acute) Perforated viscus (Acute) Acute kidney injury (Acute) Subjective: Patient remains on the ventilator. Underwent an EGD yesterday where a CorPak feeding tube was placed distal to the pylorus. NG tube was brought back into the stomach and really is only bringing some slight green fluid in it. Tube feeds were not started yesterday secondary to showing some minor ischemic changes within the colon itself. Objective: Abdomen is distended stoma is pink and viable no blood is coming out of it at this time. - Physical Exam Vital Signs Temp Pulse Resp BP Pulse Ox 99.5 F H 101 H 16 81/56 L 95 05/24/18 04:00 05/24/18 07:00 05/24/18 07:00 05/24/18 07:00 05/24/18 07:00 Oxygen Flow Rate (L/min) 60 Oxygen Delivery Method Mechanical Ventilator Weight: 252 lb 3.341 oz Body Mass Index (BMI) 29.9 Finger Stick Blood Glucose 185 Intake and Output for Last 24 Hours 05/22/18 05/23/18 05/24/18 23:59 23:59 23:59 Intake Total 3816.0 / 3816.0 2617.8 / 2617.8 543.5 / 543.5 Output Total 5475 / 5475 4558 / 4558 185 / 185 Balance -1659.0 / -1659.0 -1940.2 / -1940.2 358.5 / 358.5 Microbiology Past 72 Hours 05/20/18 09:35 Gram Stain - Final Wound Drainage - Aerobic & Anaerobic Swabs Wound Culture - Final Presumptive C albicans Staphylococcus epidermidis Enterococcus faecalis Anaerobic Culture - Final No anaerobic bacteria isolated. 05/22/18 13:10 C. difficile DNA Amplification - Final Stool 05/17/18 07:27 Blood Culture - Final Blood Culture (Wb) - Anticubital Right No growth in 5 days. 05/17/18 08:25 Blood Culture - Final Blood Culture (Wb) - Central Line No growth in 5 days. Laboratory Tests Past 24 Hrs 05/22/18 05/22/18 05/23/18 04:00 14:25 04:10 WBC RBC Hgb Hct MCV MCH MCHC RDW RDW Differential Plt Count MPV Neut % (Auto) Absolute Neuts (auto) Absolute Lymphs (auto) Total Counted Neutrophils % (Manual) Band Neutrophils % Lymphocytes % (Manual) Monocytes % (Manual) Metamyelocytes % Myelocytes % Plasma Cell % (Manual) Differential Comment Diff Path Review Reviewed Reviewed Reviewed Reactive Lymphocytes Toxic Granulation Platelet Estimate Plt Morphology Comment Polychromasia Hypochromasia Anisocytosis Microcytosis Absolute Retic Sodium Potassium Chloride Carbon Dioxide Anion Gap BUN Creatinine Estim Creat Clear Calc Est GFR (MDRD) Af Amer Est GFR (MDRD) Non-Af BUN/Creatinine Ratio Glucose Hemoglobin A1c Calcium Random Vancomycin 05/23/18 05/24/18 05/24/18 04:10 06:05 06:05 WBC RBC Hgb Hct MCV MCH MCHC RDW RDW Differential Plt Count MPV Neut % (Auto) Absolute Neuts (auto) Absolute Lymphs (auto) Total Counted Neutrophils % (Manual) Band Neutrophils % Lymphocytes % (Manual) Monocytes % (Manual) Metamyelocytes % Myelocytes % Plasma Cell % (Manual) Differential Comment Diff Path Review Reactive Lymphocytes Toxic Granulation Platelet Estimate Plt Morphology Comment Polychromasia Hypochromasia Anisocytosis Microcytosis Absolute Retic Sodium 137 Potassium 3.3 L Chloride 105 Carbon Dioxide 24.0 Anion Gap 8 BUN 42 H Creatinine 3.36 H Estim Creat Clear Calc 25.34 Est GFR (MDRD) Af Amer 24 L Est GFR (MDRD) Non-Af 20 L BUN/Creatinine Ratio 12.5 Glucose 183 H Hemoglobin A1c 6.7 H Calcium 7.0 L Random Vancomycin 17.9 H 05/24/18 06:05 WBC 32.7 H* RBC 2.81 L Hgb 9.5 L Hct 28.4 L MCV 101.1 H MCH 33.8 H MCHC 33.5 RDW 18.5 H RDW Differential 68.1 H Plt Count 232 MPV 13.1 H Neut % (Auto) Not Reportable Absolute Neuts (auto) 29.1 H Absolute Lymphs (auto) 1.64 Total Counted 100 Neutrophils % (Manual) 87 H Band Neutrophils % 2 Lymphocytes % (Manual) 5 L Monocytes % (Manual) 2 Metamyelocytes % 2 H Myelocytes % 1 H Plasma Cell % (Manual) 1 Differential Comment RARE Diff Path Review May foll Reactive Lymphocytes 1+ Toxic Granulation 1+ Platelet Estimate ADEQUATE Plt Morphology Comment LARGE Polychromasia RARE Hypochromasia 1+ Anisocytosis 1+ Microcytosis 1+ Absolute Retic Pending Sodium Potassium Chloride Carbon Dioxide Anion Gap BUN Creatinine Estim Creat Clear Calc Est GFR (MDRD) Af Amer Est GFR (MDRD) Non-Af BUN/Creatinine Ratio Glucose Hemoglobin A1c Calcium Random Vancomycin POC Glucose 05/24/18 05/23/18 05/23/18 05:40 23:43 17:43 POC Glucose 185 H 171 H 145 H 05/23/18 12:18 POC Glucose 143 H Medical Necessity - Tobacco Use Smoking Status: Current every day smoker Tobacco Use: Cigarettes Assessment/Plan All Active Problems (Last Reviewed 05/04/18 @ 08:39 by Prasanth Pradhan MD) Gross hematuria (Acute) Overweight (Acute) MASOOD (obstructive sleep apnea) (Acute) Colovesical fistula (Acute) Large bowel anastomotic leak (Acute) Sepsis associated hypotension (Acute) Perforated abdominal viscus (Acute) Perforated viscus (Acute) Acute kidney injury (Acute) Believe that it is safe to start tube feedings on him today. Nutritional status is at a critically poor level. will be taking over care while I am gone.
--- NOTE | 2018-05-24 08:21 | PCM.RX.CS ---
Consult Pharmacy has been consulted to manage selected antiobiotic: Vancomycin Type of Consult: Follow-up Suspected Infection: Other Labs: Sodium 137 mmol/L (136-145) 05/24/18 06:05 Potassium 3.3 mmol/L (3.5-5.1) L 05/24/18 06:05 Chloride 105 mmol/L (98-107) 05/24/18 06:05 Carbon Dioxide 24.0 mmol/L (21.0-32.0) 05/24/18 06:05 Anion Gap 8 (5-15) 05/24/18 06:05 BUN 42 mg/dL (7-18) H 05/24/18 06:05 Creatinine 3.36 mg/dL (0.70-1.30) H 05/24/18 06:05 Est GFR (MDRD) Af Amer 24 mL/min (>60) L 05/24/18 06:05 Est GFR (MDRD) Non-Af 20 mL/min (>60) L 05/24/18 06:05 BUN/Creatinine Ratio 12.5 RATIO (10-20) 05/24/18 06:05 Glucose 183 mg/dL (74-106) H 05/24/18 06:05 Vancomycin Trough 21.7 ug/mL (5.0-15.0) H 05/19/18 12:45 Random Vancomycin 17.9 ug/mL (0.0-15.0) H 05/24/18 06:05 Microbiology: Microbiology 05/20/18 09:35 Wound Drainage - Aerobic & Anaerobic Swabs Gram Stain - Final 05/20/18 09:35 Wound Drainage - Aerobic & Anaerobic Swabs Wound Culture - Final Presumptive C albicans Staphylococcus epidermidis Enterococcus faecalis 05/20/18 09:35 Wound Drainage - Aerobic & Anaerobic Swabs Anaerobic Culture - Final No anaerobic bacteria isolated. 05/22/18 13:10 Stool C. difficile DNA Amplification - Final 05/17/18 07:27 Blood Culture (Wb) - Anticubital Right Blood Culture - Final No growth in 5 days. 05/17/18 08:25 Blood Culture (Wb) - Central Line Blood Culture - Final No growth in 5 days. 05/17/18 10:25 Urine Catheter - Maldonado Urine Culture - Final Danya albicans 05/12/18 17:05 Blood Culture (Wb) - Anticubital Left Blood Culture - Final No growth in 5 days. 05/12/18 17:10 Blood Culture (Wb) - Left Hand Blood Culture - Final No growth in 5 days. Estimated Creatinine Clearance: Dialysis Goal Trough: 15-20 mcg/mL Pharmacy Plan for Drug Dosing: Discussed with Dr Woo. Per his direct order will give vancomycin 1000mg IV, not per the algorithm. Next level prior to next dialysis. Pharmacy Service will continue to monitor and adjust dosing as required.
[2018-05-24] MEDS: Chlorhexidine 15 ML PO (10:14)
[2018-05-24] MEDS: Menthol/Lanolin/Calamine/Znox 113 GM Tube 1 APPLIC TOPICAL (10:14)
[2018-05-24] MEDS: Nystatin Powder 15gm Bottle 1 APPLIC TOPICAL (10:15)
--- NOTE | 2018-05-24 10:18 | PCM.PN.BLA ---
Progress Note I am taking over the patient's care today from Dr. Pradhan. I saw the patient this morning and the pressor requirements have remained the same. His white count has increased. The patient remains an uric with increasing creatinine. The patient has been diuresed the last 2 days using dialysis. I reviewed the patient's CT scan that was done 2 days ago. The patient has thickening of the colon throughout. 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 I believe the colon ischemia is what is keeping him septic as he has been on high-dose broad-spectrum antibiotics for several days as well as pressors. I believe the only chance of getting him off of pressors and saving his kidney function is to remove the ischemic colon. I am hoping that removing the ischemic colon will get him off pressors and off the vent and his kidney function can be saved. I believe if we do not take the patient for surgery he will remain on pressors and failed to improve. The patients last surgery was 7 days ago and he has shown minimal improvement in those 7 days. I believe the colitis is the cause of this and I believe once his colon is removed he will begin to improve. I explained this to the patient in detail as he is awake and alert on the ventilator. I explained that there are risks of bleeding, heart attack, stroke, , injury to ureters or bladder, injury to small bowel, evisceration and wound dehiscence. I also explained that I would be leaving an end ileostomy which would likely be permanent. The patient understands and wrote down that he is willing to proceed. I will explained the risks to the patient's next of kin and have them sign consent as the patient is under narcotics. I will take him emergently for a laparotomy with total abdominal colectomy and end ileostomy. Markie Kent MD Pager: [facility] [address] [place] [phone] [place] [address] Office:
--- NOTE | 2018-05-24 10:21 | PN_ITS ---
Progress Note I am taking over the patient's care today from Dr. Pradhan. I saw the patient this morning and the pressor requirements have remained the same. His white count has increased. The patient remains an uric with increasing creatinine. The patient has been diuresed the last 2 days using dialysis. I reviewed the patient's CT scan that was done 2 days ago. The patient has thickening of the colon throughout. 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 I believe the colon ischemia is what is keeping him septic as he has been on high- dose broad-spectrum antibiotics for several days as well as pressors. I believe the only chance of getting him off of pressors and saving his kidney function is to remove the ischemic colon. I am hoping that removing the ischemic colon will get him off pressors and off the vent and his kidney function can be saved. I believe if we do not take the patient for surgery he will remain on pressors and failed to improve. The patients last surgery was 7 days ago and he has shown minimal improvement in those 7 days. I believe the colitis is the cause of this and I believe once his colon is removed he will begin to improve. I explained this to the patient in detail as he is awake and alert on the ventilator. I explained that there are risks of bleeding, heart attack, stroke, , injury to ureters or bladder, injury to small bowel, evisceration and wound dehiscence. I also explained that I would be leaving an end ileostomy which would likely be permanent. The patient understands and wrote down that he is willing to proceed. I will explained the risks to the patient's next of kin and have them sign consent as the patient is under narcotics. I will take him emergently for a laparotomy with total abdominal colectomy and end ileostomy. Markie Kent MD Pager: [facility] [address] [place] [address] [address] [place] [address] Office:
--- NOTE | 2018-05-24 10:50 | CASEMGMT ---
SW participated in ICU rounds. Pt awake, though remains on the vent. SW/CM will continue to follow for discharge needs, at this time it is too soon to know what will be the appropriate level of care at discharge. JACKIE Fagan, PYTHON ENGINEER
--- NOTE | 2018-05-24 11:15 | NURSING ---
Wound photo: abdomen
--- NOTE | 2018-05-24 11:19 | NURSING ---
TO OR PER BED, FAMILY PRESENT & AWARE OF PROCEDURE
[2018-05-24 11:20] LABS: Bedside Glucose 192 mg/dL (70-110)
--- NOTE | 2018-05-24 11:48 | PCM.PN.ID ---
Patient Problems: Active and Suspected Problems (Last Reviewed 05/04/18 @ 08:39 by Prasanth Pradhan MD) Gross hematuria (Acute) Overweight (Acute) MASOOD (obstructive sleep apnea) (Acute) non-compliant with CPAP Peripheral arterial disease (Suspected) Colovesical fistula (Acute) Large bowel anastomotic leak (Acute) Sepsis associated hypotension (Acute) Perforated abdominal viscus (Acute) Perforated viscus (Acute) Acute kidney injury (Acute) Subjective: Going to OR this AM. No fever. Remains on pressors. - Physical Exam General: No apparent distress, - - ill appearing Lungs: Diminished Cardiovascular: Tachycardic Abdomen: Distended, Tender Skin: No rashes Vital Signs Temp Pulse Resp BP Pulse Ox 99.5 F H 103 H 22 H 97/63 100 05/24/18 04:00 05/24/18 11:00 05/24/18 10:49 05/24/18 11:00 05/24/18 11:00 Oxygen Flow Rate (L/min) 60 Oxygen Delivery Method Mechanical Ventilator Weight: 114.4 kg Body Mass Index (BMI) 29.9 Finger Stick Blood Glucose 185 Intake and Output for Last 24 Hours 05/22/18 05/23/18 05/24/18 23:59 23:59 23:59 Intake Total 3816.0 / 3816.0 2617.8 / 2617.8 543.5 / 543.5 Output Total 5475 / 5475 4558 / 4558 185 / 185 Balance -1659.0 / -1659.0 -1940.2 / -1940.2 358.5 / 358.5 Microbiology Past 72 Hours 05/20/18 09:35 Gram Stain - Final Wound Drainage - Aerobic & Anaerobic Swabs Wound Culture - Final Presumptive C albicans Staphylococcus epidermidis Enterococcus faecalis Anaerobic Culture - Final No anaerobic bacteria isolated. 05/22/18 13:10 C. difficile DNA Amplification - Final Stool 05/17/18 07:27 Blood Culture - Final Blood Culture (Wb) - Anticubital Right No growth in 5 days. 05/17/18 08:25 Blood Culture - Final Blood Culture (Wb) - Central Line No growth in 5 days. Laboratory Tests Past 24 Hrs 05/22/18 05/22/18 05/23/18 04:00 14:25 04:10 WBC RBC Hgb Hct MCV MCH MCHC RDW RDW Differential Plt Count MPV Neut % (Auto) Absolute Neuts (auto) Absolute Lymphs (auto) Total Counted Neutrophils % (Manual) Band Neutrophils % Lymphocytes % (Manual) Monocytes % (Manual) Metamyelocytes % Myelocytes % Plasma Cell % (Manual) Differential Comment Diff Path Review Reviewed Reviewed Reviewed Reactive Lymphocytes Toxic Granulation Platelet Estimate Plt Morphology Comment Polychromasia Hypochromasia Anisocytosis Microcytosis Absolute Retic Sodium Potassium Chloride Carbon Dioxide Anion Gap BUN Creatinine Estim Creat Clear Calc Est GFR (MDRD) Af Amer Est GFR (MDRD) Non-Af BUN/Creatinine Ratio Glucose Hemoglobin A1c Calcium Random Vancomycin 05/23/18 05/24/18 05/24/18 04:10 06:05 06:05 WBC RBC Hgb Hct MCV MCH MCHC RDW RDW Differential Plt Count MPV Neut % (Auto) Absolute Neuts (auto) Absolute Lymphs (auto) Total Counted Neutrophils % (Manual) Band Neutrophils % Lymphocytes % (Manual) Monocytes % (Manual) Metamyelocytes % Myelocytes % Plasma Cell % (Manual) Differential Comment Diff Path Review Reactive Lymphocytes Toxic Granulation Platelet Estimate Plt Morphology Comment Polychromasia Hypochromasia Anisocytosis Microcytosis Absolute Retic Sodium 137 Potassium 3.3 L Chloride 105 Carbon Dioxide 24.0 Anion Gap 8 BUN 42 H Creatinine 3.36 H Estim Creat Clear Calc 25.34 Est GFR (MDRD) Af Amer 24 L Est GFR (MDRD) Non-Af 20 L BUN/Creatinine Ratio 12.5 Glucose 183 H Hemoglobin A1c 6.7 H Calcium 7.0 L Random Vancomycin 17.9 H 05/24/18 06:05 WBC 32.7 H* RBC 2.81 L Hgb 9.5 L Hct 28.4 L MCV 101.1 H MCH 33.8 H MCHC 33.5 RDW 18.5 H RDW Differential 68.1 H Plt Count 232 MPV 13.1 H Neut % (Auto) Not Reportable Absolute Neuts (auto) 29.1 H Absolute Lymphs (auto) 1.64 Total Counted 100 Neutrophils % (Manual) 87 H Band Neutrophils % 2 Lymphocytes % (Manual) 5 L Monocytes % (Manual) 2 Metamyelocytes % 2 H Myelocytes % 1 H Plasma Cell % (Manual) 1 Differential Comment RARE Diff Path Review May foll Reactive Lymphocytes 1+ Toxic Granulation 1+ Platelet Estimate ADEQUATE Plt Morphology Comment LARGE Polychromasia RARE Hypochromasia 1+ Anisocytosis 1+ Microcytosis 1+ Absolute Retic Pending Sodium Potassium Chloride Carbon Dioxide Anion Gap BUN Creatinine Estim Creat Clear Calc Est GFR (MDRD) Af Amer Est GFR (MDRD) Non-Af BUN/Creatinine Ratio Glucose Hemoglobin A1c Calcium Random Vancomycin POC Glucose 05/24/18 05/24/18 05/23/18 11:08 05:40 23:43 POC Glucose 192 H 185 H 171 H 05/23/18 05/23/18 17:43 12:18 POC Glucose 145 H 143 H Medical Necessity - Tobacco Use Smoking Status: Current every day smoker Tobacco Use: Cigarettes Route of nutrition/ use of supplements: [] Nutritional Intake: [] IV Site: [] Maldonado Catheter: [] - Assessment/Plan Antibiotics: [] Assessment/Plan: [] Active and Suspected Problems (Last Reviewed 05/04/18 @ 08:39 by Prasanth Pradhan MD) Gross hematuria (Acute) Overweight (Acute) MASOOD (obstructive sleep apnea) (Acute) non-compliant with CPAP Peripheral arterial disease (Suspected) Colovesical fistula (Acute) Large bowel anastomotic leak (Acute) Sepsis associated hypotension (Acute) Septic shock with recent abd surgeries for colovesicular fistula on 05/03 and anastamotic leak on 05/13 and 05/18. On vanc/meropenem. Now with rising wbc, Cr, and worsened pressor requirements. Had some michelet in urine. 05/20 added fluconazole. Now on HD. OR today for colectomy given ongoing shock, ischemic bowel. Will follow
[2018-05-24] MEDS: Hetastarch 6% /Ns 30 GM/500 ML BAG IV (12:20)
[2018-05-24 12:51] LABS: Pathologist Review Reviewed
--- NOTE | 2018-05-24 14:02 | PCM.PN.REN ---
Patient Problems: Active and Suspected Problems (Last Reviewed 05/04/18 @ 08:39 by Prasanth Pradhan MD) Gross hematuria (Acute) Overweight (Acute) MASOOD (obstructive sleep apnea) (Acute) non-compliant with CPAP Peripheral arterial disease (Suspected) Colovesical fistula (Acute) Large bowel anastomotic leak (Acute) Sepsis associated hypotension (Acute) Perforated abdominal viscus (Acute) Perforated viscus (Acute) Acute kidney injury (Acute) Subjective: patient is currently in OR - Physical Exam HEENT: Atraumatic, PERRLA, EOMI, Normocephalic Neck: Supple, No JVD, Negative Carotid Bruits Lungs: Clear to auscultation, Normal air movement Cardiovascular: Regular rate, No murmurs Abdomen: Bowel Sounds Present, Soft, Non Tender Extremities: No edema, Capillary Refill Less than 3 Seconds Skin: No rashes, No breakdown Musculoskeletal: No Tenderness to Palpation of Joints or Extremities Vital Signs Temp Pulse Resp BP Pulse Ox 99.5 F H 103 H 22 H 97/63 100 05/24/18 04:00 05/24/18 11:00 05/24/18 10:49 05/24/18 11:00 05/24/18 11:00 Oxygen Flow Rate (L/min) 60 Oxygen Delivery Method Mechanical Ventilator Weight: 114.4 kg Body Mass Index (BMI) 29.9 Finger Stick Blood Glucose 185 Intake and Output for Last 24 Hours 05/22/18 05/23/18 05/24/18 23:59 23:59 23:59 Intake Total 3816.0 / 3816.0 2617.8 / 2617.8 543.5 / 543.5 Output Total 5475 / 5475 4558 / 4558 185 / 185 Balance -1659.0 / -1659.0 -1940.2 / -1940.2 358.5 / 358.5 Microbiology Past 72 Hours 05/20/18 09:35 Gram Stain - Final Wound Drainage - Aerobic & Anaerobic Swabs Wound Culture - Final Presumptive C albicans Staphylococcus epidermidis Enterococcus faecalis Anaerobic Culture - Final No anaerobic bacteria isolated. 05/22/18 13:10 C. difficile DNA Amplification - Final Stool 05/17/18 07:27 Blood Culture - Final Blood Culture (Wb) - Anticubital Right No growth in 5 days. 05/17/18 08:25 Blood Culture - Final Blood Culture (Wb) - Central Line No growth in 5 days. Laboratory Tests Past 24 Hrs 05/24/18 05/24/18 05/24/18 06:05 06:05 06:05 WBC 32.7 H* RBC 2.81 L Hgb 9.5 L Hct 28.4 L MCV 101.1 H MCH 33.8 H MCHC 33.5 RDW 18.5 H RDW Differential 68.1 H Plt Count 232 MPV 13.1 H Neut % (Auto) Not Reportable Absolute Neuts (auto) 29.1 H Absolute Lymphs (auto) 1.64 Total Counted 100 Neutrophils % (Manual) 87 H Band Neutrophils % 2 Lymphocytes % (Manual) 5 L Monocytes % (Manual) 2 Metamyelocytes % 2 H Myelocytes % 1 H Plasma Cell % (Manual) 1 Differential Comment RARE Diff Path Review Reviewed Reactive Lymphocytes 1+ Toxic Granulation 1+ Platelet Estimate ADEQUATE Plt Morphology Comment LARGE Polychromasia RARE Hypochromasia 1+ Anisocytosis 1+ Microcytosis 1+ Absolute Retic Pending Sodium 137 Potassium 3.3 L Chloride 105 Carbon Dioxide 24.0 Anion Gap 8 BUN 42 H Creatinine 3.36 H Estim Creat Clear Calc 25.34 Est GFR (MDRD) Af Amer 24 L Est GFR (MDRD) Non-Af 20 L BUN/Creatinine Ratio 12.5 Glucose 183 H Calcium 7.0 L Random Vancomycin 17.9 H Blood Type Antibody Screen Crossmatch 05/24/18 12:05 WBC RBC Hgb Hct MCV MCH MCHC RDW RDW Differential Plt Count MPV Neut % (Auto) Absolute Neuts (auto) Absolute Lymphs (auto) Total Counted Neutrophils % (Manual) Band Neutrophils % Lymphocytes % (Manual) Monocytes % (Manual) Metamyelocytes % Myelocytes % Plasma Cell % (Manual) Differential Comment Diff Path Review Reactive Lymphocytes Toxic Granulation Platelet Estimate Plt Morphology Comment Polychromasia Hypochromasia Anisocytosis Microcytosis Absolute Retic Sodium Potassium Chloride Carbon Dioxide Anion Gap BUN Creatinine Estim Creat Clear Calc Est GFR (MDRD) Af Amer Est GFR (MDRD) Non-Af BUN/Creatinine Ratio Glucose Calcium Random Vancomycin Blood Type A POSITIVE Antibody Screen NEGATIVE Crossmatch See Detail POC Glucose 05/24/18 05/24/18 05/23/18 11:08 05:40 23:43 POC Glucose 192 H 185 H 171 H 05/23/18 17:43 POC Glucose 145 H Medical Necessity - Tobacco Use Smoking Status: Current every day smoker Tobacco Use: Cigarettes Assessment/Plan All Active Problems (Last Reviewed 05/04/18 @ 08:39 by Prasanth Pradhan MD) Gross hematuria (Acute) Overweight (Acute) MASOOD (obstructive sleep apnea) (Acute) Colovesical fistula (Acute) Large bowel anastomotic leak (Acute) Sepsis associated hypotension (Acute) Perforated abdominal viscus (Acute) Perforated viscus (Acute) Acute kidney injury (Acute) OVI. likely ATN from sepsis. he was admitted with colovesical fistula, s/p sigmoid resection, fistula closure with laparotomy. repeat exploration due to anastamotic leak and repair of jejunal perforation Hypokalemia. repleted PLan Reviewed surgery note. For total colectomy today. remains on 2 pressors. hold off on HD today due to ongoing events likely HD tomorrow
--- NOTE | 2018-05-24 14:08 | PCM.PN.HOSP ---
Patient Problems: Active and Suspected Problems (Last Reviewed 05/04/18 @ 08:39 by Prasanth Pradhan MD) Gross hematuria (Acute) Overweight (Acute) MASOOD (obstructive sleep apnea) (Acute) non-compliant with CPAP Peripheral arterial disease (Suspected) Colovesical fistula (Acute) Large bowel anastomotic leak (Acute) Sepsis associated hypotension (Acute) Perforated abdominal viscus (Acute) Perforated viscus (Acute) Acute kidney injury (Acute) Subjective: Patient seen and examined. He is going for total colectomy today. He had his pressors increased. No fevers seen. WBC elevated again. Objective: Physical exam: General: Alert, Oriented x3, Cooperative, - - intubated, on mechanical ventilator, appears fairly comfortable HEENT: Atraumatic, PERRLA, EOMI, Normocephalic Neck: Supple, No JVD, Negative Carotid Bruits Lungs: Normal air movement, Diminished - no rhonchi heard Cardiovascular: Regular rate, Regular Rhythm, Normal S1, Normal S2, No murmurs Abdomen: Bowel Sounds Present - and normal in all 4 quadrants, Soft, Non-Distended, Tender - generalised without guarding and RBT, - - midline dressing is intact, LLQ colostomy appears empty with air and minimal serosanguinous pink fluid, RICARDO drains have serosanguinous fluid Extremities: Edema - +3-4 pitting, non-tender edema Skin: - - weeping of serosanguinous fluid from bilateral legs Musculoskeletal: No Tenderness to Palpation of Joints or Extremities Lymphatic: No Cervical, Supraclavicular, or Inguinal Adenopathy Neurological: Cranial nerves II-XII grossly intact Psych/Mental Status: Normal Affect, Appropriate Vitals/I&O's: Vital Signs Temp Pulse Resp BP Pulse Ox 99.5 F H 103 H 22 H 97/63 100 05/24/18 04:00 05/24/18 11:00 05/24/18 10:49 05/24/18 11:00 05/24/18 11:00 Oxygen Flow Rate (L/min) 60 Oxygen Delivery Method Mechanical Ventilator Weight: 114.4 kg Body Mass Index (BMI) 29.9 Finger Stick Blood Glucose 185 Intake and Output for Last 24 Hours 05/22/18 05/23/18 05/24/18 23:59 23:59 23:59 Intake Total 3816.0 / 3816.0 2617.8 / 2617.8 543.5 / 543.5 Output Total 5475 / 5475 4558 / 4558 185 / 185 Balance -1659.0 / -1659.0 -1940.2 / -1940.2 358.5 / 358.5 Microbiology Past 72 Hours 05/20/18 09:35 Wound Drainage - Aerobic & Anaerobic Swabs Gram Stain - Final 05/20/18 09:35 Wound Drainage - Aerobic & Anaerobic Swabs Wound Culture - Final Presumptive C albicans Staphylococcus epidermidis Enterococcus faecalis 05/20/18 09:35 Wound Drainage - Aerobic & Anaerobic Swabs Anaerobic Culture - Final No anaerobic bacteria isolated. 05/22/18 13:10 Stool C. difficile DNA Amplification - Final 05/17/18 07:27 Blood Culture (Wb) - Anticubital Right Blood Culture - Final No growth in 5 days. 05/17/18 08:25 Blood Culture (Wb) - Central Line Blood Culture - Final No growth in 5 days. Laboratory Results 05/23/18 17:43: POC Glucose 145 H 05/23/18 23:43: POC Glucose 171 H 05/24/18 05:40: POC Glucose 185 H 05/24/18 06:05: Random Vancomycin 17.9 H 05/24/18 06:05: Sodium 137, Potassium 3.3 L, Chloride 105, Carbon Dioxide 24.0, Anion Gap 8, BUN 42 H, Creatinine 3.36 H, Estim Creat Clear Calc 25.34, Est GFR (MDRD) Af Amer 24 L, Est GFR (MDRD) Non-Af 20 L, BUN/Creatinine Ratio 12.5, Glucose 183 H, Calcium 7.0 L 05/24/18 06:05: WBC 32.7 H*, RBC 2.81 L, Hgb 9.5 L, Hct 28.4 L, MCV 101.1 H, MCH 33.8 H, MCHC 33.5, RDW 18.5 H, RDW Differential 68.1 H, Plt Count 232, MPV 13.1 H, Neut % (Auto) Not Reportable, Absolute Neuts (auto) 29.1 H, Absolute Lymphs (auto) 1.64, Total Counted 100, Neutrophils % (Manual) 87 H, Band Neutrophils % 2, Lymphocytes % (Manual) 5 L, Monocytes % (Manual) 2, Metamyelocytes % 2 H, Myelocytes % 1 H, Plasma Cell % (Manual) 1, Differential Comment RARE, Diff Path Review Reviewed, Reactive Lymphocytes 1+, Toxic Granulation 1+, Platelet Estimate ADEQUATE, Plt Morphology Comment LARGE, Polychromasia RARE, Hypochromasia 1+, Anisocytosis 1+, Microcytosis 1+, Absolute Retic Pending 05/24/18 11:08: POC Glucose 192 H 05/24/18 12:05: Blood Type A POSITIVE, Antibody Screen NEGATIVE, Crossmatch See Detail Current Medications Albuterol/Ipratropium (Duoneb) 3 ml INHALATION Q4H.RT PRN PRN Reason: WHEEZING Last Admin: 05/18/18 22:15 Dose: 3 ml Calamine/Phenol (Calmoseptine Ointment) 1 applic TOPICAL BID [facility]; Protocol Last Admin: 05/24/18 10:14 Dose: 1 applicatio Chlorhexidine Gluconate () 15 ml PO BID [facility] Last Admin: 05/24/18 10:14 Dose: 15 ml Chlorhexidine Gluconate () 1 each TOPICAL DAILY [facility] Last Admin: 05/24/18 03:44 Dose: 1 each Heparin Sodium (Porcine) () 2,500 units IV UD PRN PRN Reason: HEPARIN FLUSH Vancomycin IV Pharmacy to Dose (1 ea/ Sodium Chloride) 500 mls @ 250 mls/hr IV PRN PRN; Protocol PRN Reason: Rx to Dose Fentanyl () 100 mls @ 5 mls/hr IV .Q20H [facility]; Protocol Last Admin: 05/24/18 05:29 Dose: 5 mls/hr Meropenem 500 mg/ Sodium (Chloride) 60 mls @ 100 mls/hr IV Q24H [facility] Last Admin: 05/23/18 17:30 Dose: 100 mls/hr Vasopressin 20 units/ Sodium (Chloride) 25 mls @ 3 mls/hr IV .Q8H20M [facility] Last Admin: 05/24/18 10:25 Dose: 3 mls/hr Fluconazole (Diflucan) 200 mg in 100 mls @ 100 mls/hr IV Q24 [facility] Last Admin: 05/24/18 11:15 Dose: 100 mls/hr Norepinephrine Bitartrate 16 (mg/ Dextrose) 266 mls @ 4.99 mls/hr IV .[id number] [facility] Last Admin: 05/24/18 01:21 Dose: 4.99 mls/hr Pantoprazole Sodium 40 mg/ (Sodium Chloride) 110 mls @ 330 mls/hr IV Q24 [facility] Last Admin: 05/24/18 11:16 Dose: 330 mls/hr Potassium Chloride 40 meq/ (Sodium Chloride) 120 mls @ 100 mls/hr IV BOLUS Q24 [facility] Last Admin: 05/24/18 11:10 Dose: 100 mls/hr Multivitamins 10 ml/ Chromium/Copper/Manganese/Seleni/Zn 1 ml/ Folic Acid 1 mg/ Amino Acids/Electrolytes 2,011.2 mls @ 42 mls/hr IV .Q24H [facility] Stop: 05/24/18 15:47 Last Admin: 05/23/18 17:32 Dose: 42 mls/hr Multivitamins 10 ml/ Chromium/Copper/Manganese/Seleni/Zn 1 ml/ Folic Acid 1 mg/ Amino Acids/Electrolytes 2,011.2 mls @ 42 mls/hr IV .Q24H [facility] Stop: 05/25/18 15:47 Dexmedetomidine HCl 400 mcg/ (Sodium Chloride) 100 mls @ 14.3 mls/hr IV .Q7H [facility] Insulin Human Lispro (Humalog Kwikpen (Bkc)) 0 unit SC Q6 [facility]; Protocol Last Admin: 05/24/18 11:11 Dose: 1 u Midodrine (Proamatine) 10 mg NG TID ERROL Nystatin (Mycostatin Powder) 1 applic TOPICAL BID [facility]; Protocol Last Admin: 05/24/18 10:15 Dose: 1 applicatio Ondansetron HCl (Zofran) 4 mg IV Q6H PRN PRN PRN Reason: Nausea Last Admin: 05/16/18 04:56 Dose: 4 mg Sodium Chloride () 5 - 15 ml IV UD PRN PRN Reason: SALINE FLUSH Last Admin: 05/23/18 10:39 Dose: 15 ml Medical Necessity - Tobacco Use Smoking Status: Current every day smoker Tobacco Use: Cigarettes Assessment/Plan All Active Problems (Last Reviewed 05/04/18 @ 08:39 by Prasanth Pradhan MD) Gross hematuria (Acute) Overweight (Acute) MASOOD (obstructive sleep apnea) (Acute) Colovesical fistula (Acute) Large bowel anastomotic leak (Acute) Sepsis associated hypotension (Acute) Perforated abdominal viscus (Acute) Perforated viscus (Acute) Acute kidney injury (Acute) 62-year-old male with past medical history of hypertension, CAD, likely ischemic cardiomyopathy, EF 30%, nicotine dependence who was admitted on 05/02/[address] abdomen and pelvis without contrast showed 8.7 x 8.3 single large mass in the base of the bladder with marked urinary bladder distention air-fluid level suspicious of colovesical fistula. He underwent cystoscopy evacuation of blood clots, laser of a very large bladder stone, evacuation of bladder stone fragments, cystolitholapaxy on 05/03/2018. He subsequently sigmoid colon resection and repair of colovesical fistula on 05/07/2018. His post-op care was complicated with anastomotic leak and patient had exploratory laparotomy and creation of the end colostomy on 05/13/2018. Patient had exploratory laparotomy with jejunal repair on 05/17/2018. He remains in ICU, intubated, mechanical ventilator, on pressors 1. Septic shock secondary to anastomotic leak/intra-abdominal abscess, not much improvement, WBC increased again Going to OR for total colectomy. C. diff is negative. Repeat CT abdomen/pelvis showed colitis. Wound cultures growing staph epidermidis, enterococcus, presumptive michelet Urine cultures growing michelet. ID consulted. On fluconazole, meropenem, vancomycin Will trend labs in am 2. Hypokalemia, K 3.3, replaced, recheck in am 3. OVI likely secondary to ischemic ATN, on slow HD, nephrology ff 4. Candiduria, on IV fluconazole 5. Hyperglycemia secondary to TPN, BS fairly controlled, continue on low-dose insulin sliding scale with Accu-Cheks 6. Left lower extremity DVT, developed after surgery, off IV heparin drip. 7. Colovesical fistula status post cystoscopy, evacuation of blood clots, laser of a very large bladder stone, evacuation of bladder stone fragments, cystolitholapaxy. colectomy, s/p hardwick pouch, Remains NPO, in ileus, s/p NG tube to intermittent suction will follow general surgery recommendations, wound nurse following 8. s/p exploratory laparotomy on 05/17/18, pain is fairly controlled, on fentanyl drip, NG tube in situ, will follow up with general surgery recommendation 9. Acute hypoxic respiratory failure, remains on ventilatory support 10. CAD/ischemic cardiomyopathy, EF 30%, in acute exacerbation, fluid removal via HD 11. Hypertension, now hypotensive, will continue to monitor 12. A. fib with RVR secondary to septic shock, HR is fairly controlled 13. MASOOD, noncompliant with CPAP 14. Hypoalbuminemia, on TPN, s/p Corpak placement, tube feeds to start today 15. DVT PPx- SCDs Code Visit Inpatient E&M: 55840 Subs Hosp L3
--- NOTE | 2018-05-24 14:12 | PN_ITS ---
Patient Problems: Active and Suspected Problems (Last Reviewed 05/04/18 @ 08:39 by Prasanth Pradhan MD) Gross hematuria (Acute) Overweight (Acute) MASOOD (obstructive sleep apnea) (Acute) non-compliant with CPAP Peripheral arterial disease (Suspected) Colovesical fistula (Acute) Large bowel anastomotic leak (Acute) Sepsis associated hypotension (Acute) Perforated abdominal viscus (Acute) Perforated viscus (Acute) Acute kidney injury (Acute) Subjective: Patient seen and examined. He is going for total colectomy today. He had his pressors increased. No fevers seen. WBC elevated again. Objective: Physical exam: General: Alert, Oriented x3, Cooperative, - - intubated, on mechanical ventilator, appears fairly comfortable HEENT: Atraumatic, PERRLA, EOMI, Normocephalic Neck: Supple, No JVD, Negative Carotid Bruits Lungs: Normal air movement, Diminished - no rhonchi heard Cardiovascular: Regular rate, Regular Rhythm, Normal S1, Normal S2, No murmurs Abdomen: Bowel Sounds Present - and normal in all 4 quadrants, Soft, Non- Distended, Tender - generalised without guarding and RBT, - - midline dressing is intact, LLQ colostomy appears empty with air and minimal serosanguinous pink fluid, RICARDO drains have serosanguinous fluid Extremities: Edema - +3-4 pitting, non-tender edema Skin: - - weeping of serosanguinous fluid from bilateral legs Musculoskeletal: No Tenderness to Palpation of Joints or Extremities Lymphatic: No Cervical, Supraclavicular, or Inguinal Adenopathy Neurological: Cranial nerves II-XII grossly intact Psych/Mental Status: Normal Affect, Appropriate Vitals/I&O's: Vital Signs Temp Pulse Resp BP Pulse Ox 99.5 F H 103 H 22 H 97/63 100 05/24/18 04:00 05/24/18 11:00 05/24/18 10:49 05/24/18 11:00 05/24/18 11:00 Oxygen Flow Rate (L/min) 60 Oxygen Delivery Method Mechanical Ventilator Weight: 114.4 kg Body Mass Index (BMI) 29.9 Finger Stick Blood Glucose 185 Intake and Output for Last 24 Hours 05/22/18 05/23/18 05/24/18 23:59 23:59 23:59 Intake Total 3816.0 / 3816.0 2617.8 / 2617.8 543.5 / 543.5 Output Total 5475 / 5475 4558 / 4558 185 / 185 Balance -1659.0 / -1659.0 -1940.2 / -1940.2 358.5 / 358.5 Microbiology Past 72 Hours 05/20/18 09:35 Wound Drainage - Aerobic & Anaerobic Swabs Gram Stain - Final 05/20/18 09:35 Wound Drainage - Aerobic & Anaerobic Swabs Wound Culture - Final Presumptive C albicans Staphylococcus epidermidis Enterococcus faecalis 05/20/18 09:35 Wound Drainage - Aerobic & Anaerobic Swabs Anaerobic Culture - Final No anaerobic bacteria isolated. 05/22/18 13:10 Stool C. difficile DNA Amplification - Final 05/17/18 07:27 Blood Culture (Wb) - Anticubital Right Blood Culture - Final No growth in 5 days. 05/17/18 08:25 Blood Culture (Wb) - Central Line Blood Culture - Final No growth in 5 days. Laboratory Results 05/23/18 17:43: POC Glucose 145 H 05/23/18 23:43: POC Glucose 171 H 05/24/18 05:40: POC Glucose 185 H 05/24/18 06:05: Random Vancomycin 17.9 H 05/24/18 06:05: Sodium 137, Potassium 3.3 L, Chloride 105, Carbon Dioxide 24.0, Anion Gap 8, BUN 42 H, Creatinine 3.36 H, Estim Creat Clear Calc 25.34, Est GFR (MDRD) Af Amer 24 L, Est GFR (MDRD) Non-Af 20 L, BUN/Creatinine Ratio 12.5, Glucose 183 H, Calcium 7.0 L 05/24/18 06:05: WBC 32.7 H*, RBC 2.81 L, Hgb 9.5 L, Hct 28.4 L, MCV 101.1 H, MCH 33.8 H, MCHC 33.5, RDW 18.5 H, RDW Differential 68.1 H, Plt Count 232, MPV 13.1 H, Neut % (Auto) Not Reportable, Absolute Neuts (auto) 29.1 H, Absolute Lymphs (auto) 1.64, Total Counted 100, Neutrophils % (Manual) 87 H, Band Neutrophils % 2, Lymphocytes % (Manual) 5 L, Monocytes % (Manual) 2, Metamyelocytes % 2 H, Myelocytes % 1 H, Plasma Cell % (Manual) 1, Differential Comment RARE, Diff Path Review Reviewed, Reactive Lymphocytes 1+, Toxic Granulation 1+, Platelet Estimate ADEQUATE, Plt Morphology Comment LARGE, Polychromasia RARE, Hypochromasia 1+, Anisocytosis 1+, Microcytosis 1+, Absolute Retic Pending 05/24/18 11:08: POC Glucose 192 H 05/24/18 12:05: Blood Type A POSITIVE, Antibody Screen NEGATIVE, Crossmatch See Detail Current Medications Albuterol/Ipratropium (Duoneb) 3 ml INHALATION Q4H.RT PRN PRN Reason: WHEEZING Last Admin: 05/18/18 22:15 Dose: 3 ml Calamine/Phenol (Calmoseptine Ointment) 1 applic TOPICAL BID [facility]; Protocol Last Admin: 05/24/18 10:14 Dose: 1 applicatio Chlorhexidine Gluconate () 15 ml PO BID [facility] Last Admin: 05/24/18 10:14 Dose: 15 ml Chlorhexidine Gluconate () 1 each TOPICAL DAILY [facility] Last Admin: 05/24/18 03:44 Dose: 1 each Heparin Sodium (Porcine) () 2,500 units IV UD PRN PRN Reason: HEPARIN FLUSH Vancomycin IV Pharmacy to Dose (1 ea/ Sodium Chloride) 500 mls @ 250 mls/hr IV PRN PRN; Protocol PRN Reason: Rx to Dose Fentanyl () 100 mls @ 5 mls/hr IV .Q20H [facility]; Protocol Last Admin: 05/24/18 05:29 Dose: 5 mls/hr Meropenem 500 mg/ Sodium (Chloride) 60 mls @ 100 mls/hr IV Q24H [facility] Last Admin: 05/23/18 17:30 Dose: 100 mls/hr Vasopressin 20 units/ Sodium (Chloride) 25 mls @ 3 mls/hr IV .Q8H20M [facility] Last Admin: 05/24/18 10:25 Dose: 3 mls/hr Fluconazole (Diflucan) 200 mg in 100 mls @ 100 mls/hr IV Q24 [facility] Last Admin: 05/24/18 11:15 Dose: 100 mls/hr Norepinephrine Bitartrate 16 (mg/ Dextrose) 266 mls @ 4.99 mls/hr IV .[id number] [facility] Last Admin: 05/24/18 01:21 Dose: 4.99 mls/hr Pantoprazole Sodium 40 mg/ (Sodium Chloride) 110 mls @ 330 mls/hr IV Q24 [facility] Last Admin: 05/24/18 11:16 Dose: 330 mls/hr Potassium Chloride 40 meq/ (Sodium Chloride) 120 mls @ 100 mls/hr IV BOLUS Q24 [facility] Last Admin: 05/24/18 11:10 Dose: 100 mls/hr Multivitamins 10 ml/ Chromium/Copper/Manganese/Seleni/Zn 1 ml/ Folic Acid 1 mg/ Amino Acids/Electrolytes 2,011.2 mls @ 42 mls/hr IV .Q24H [facility] Stop: 05/24/18 15:47 Last Admin: 05/23/18 17:32 Dose: 42 mls/hr Multivitamins 10 ml/ Chromium/Copper/Manganese/Seleni/Zn 1 ml/ Folic Acid 1 mg/ Amino Acids/Electrolytes 2,011.2 mls @ 42 mls/hr IV .Q24H [facility] Stop: 05/25/18 15:47 Dexmedetomidine HCl 400 mcg/ (Sodium Chloride) 100 mls @ 14.3 mls/hr IV .Q7H [facility] Insulin Human Lispro (Humalog Kwikpen (Bkc)) 0 unit SC Q6 [facility]; Protocol Last Admin: 05/24/18 11:11 Dose: 1 u Midodrine (Proamatine) 10 mg NG TID ERROL Nystatin (Mycostatin Powder) 1 applic TOPICAL BID [facility]; Protocol Last Admin: 05/24/18 10:15 Dose: 1 applicatio Ondansetron HCl (Zofran) 4 mg IV Q6H PRN PRN PRN Reason: Nausea Last Admin: 05/16/18 04:56 Dose: 4 mg Sodium Chloride () 5 - 15 ml IV UD PRN PRN Reason: SALINE FLUSH Last Admin: 05/23/18 10:39 Dose: 15 ml Medical Necessity - Tobacco Use Smoking Status: Current every day smoker Tobacco Use: Cigarettes Assessment/Plan All Active Problems (Last Reviewed 05/04/18 @ 08:39 by Prasanth Pradhan MD) Gross hematuria (Acute) Overweight (Acute) MASOOD (obstructive sleep apnea) (Acute) Colovesical fistula (Acute) Large bowel anastomotic leak (Acute) Sepsis associated hypotension (Acute) Perforated abdominal viscus (Acute) Perforated viscus (Acute) Acute kidney injury (Acute) 62-year-old male with past medical history of hypertension, CAD, likely ischemic cardiomyopathy, EF 30%, nicotine dependence who was admitted on 05/02/[address] abdomen and pelvis without contrast showed 8.7 x 8.3 single large mass in the base of the bladder with marked urinary bladder distention air-fluid level suspicious of colovesical fistula. He underwent cystoscopy evacuation of blood clots, laser of a very large bladder stone, evacuation of bladder stone fragments, cystolitholapaxy on 05/03/2018. He subsequently sigmoid colon resection and repair of colovesical fistula on 05/07/2018. His post-op care was complicated with anastomotic leak and patient had exploratory laparotomy and creation of the end colostomy on 05/13/2018. Patient had exploratory laparotomy with jejunal repair on 05/17/2018. He remains in ICU, intubated, mechanical ventilator, on pressors 1. Septic shock secondary to anastomotic leak/intra-abdominal abscess, not much improvement, WBC increased again Going to OR for total colectomy. C. diff is negative. Repeat CT abdomen/pelvis showed colitis. Wound cultures growing staph epidermidis, enterococcus, presumptive michelet Urine cultures growing michelet. ID consulted. On fluconazole, meropenem, vancomycin Will trend labs in am 2. Hypokalemia, K 3.3, replaced, recheck in am 3. OVI likely secondary to ischemic ATN, on slow HD, nephrology ff 4. Candiduria, on IV fluconazole 5. Hyperglycemia secondary to TPN, BS fairly controlled, continue on low-dose insulin sliding scale with Accu-Cheks 6. Left lower extremity DVT, developed after surgery, off IV heparin drip. 7. Colovesical fistula status post cystoscopy, evacuation of blood clots, laser of a very large bladder stone, evacuation of bladder stone fragments, cystolitholapaxy. colectomy, s/p hardwick pouch, Remains NPO, in ileus, s/p NG tube to intermittent suction will follow general surgery recommendations, wound nurse following 8. s/p exploratory laparotomy on 05/17/18, pain is fairly controlled, on fentanyl drip, NG tube in situ, will follow up with general surgery recommendation 9. Acute hypoxic respiratory failure, remains on ventilatory support 10. CAD/ischemic cardiomyopathy, EF 30%, in acute exacerbation, fluid removal via HD 11. Hypertension, now hypotensive, will continue to monitor 12. A. fib with RVR secondary to septic shock, HR is fairly controlled 13. MASOOD, noncompliant with CPAP 14. Hypoalbuminemia, on TPN, s/p Corpak placement, tube feeds to start today 15. DVT PPx- SCDs Code Visit Inpatient E&M: 59169 Subs Hosp L3
--- NOTE | 2018-05-24 14:21 | OP.PCM_ITS ---
Problem List (1) Acute cholecystitis Status: Acute (2) Colonic ischemia Status: Acute Report of Operation Date of Procedure: 05/24/18 Pre-Operative Diagnosis: 1. Colonic ischemia. 2. Sepsis Post-Operative Diagnosis: 1. Colonic ischemia. 2. Acute cholecystitis. 3. Sepsis Surgery/Procedure Performed:: 1. Exploratory laparotomy with total abdominal colectomy and end ileostomy. 2. Cholecystectomy Special Medications: 2 units of PRBC and 2 units of FFP Specimen's removed: 1. Colon. 2. Gallbladder and contents Drains: RICARDO to bulb suction Estimated Blood Loss (mL): 300 Fluids Replaced: 900 Description of Procedure: The patient was brought back to the operating room and general anesthesia was induced. The patient's abdomen was prepped with Betadine and the stoma was closed with a 0 suture. The retention sutures were removed as well as the old drains. The fascia was opened and the abdomen was bluntly dissected of loose adhesions. The skin around the colostomy site was incised with a scalpel and deepened with electrocautery. The colostomy was reduced into the abdomen. The colon did have several very thickened areas. The small bowel adhesions and interloop abscesses were freed up bluntly. The colon had been mobilized previously during the last surgery. The cecum was delivered into the incision and the terminal ileum was divided with a JOSEFINA stapler. Impact harmonic device was used to take down the mesentery of the terminal ileum as well as the right colon. The duodenum was bluntly from the hepatic flexure and the hepatic flexure was taken. This worked its way to the splenic flexure and the splenic flexure was released and taken down. The descending colon was also taken from its mesentery using the impact device. Any areas of bleeding were isolated and sutured with 3-0 Vicryl sutures or the impact device to gain hemostasis. Next the abdomen was inspected and the gallbladder also appeared gangrenous. The gallbladder was opened and the contents were suctioned from it. And hand with index finger was placed into the infundibulum so that the dissection went and at the infundibulum. The gallbladder was bluntly freed from the liver bed and dissection was taken down to the infundibulum and cystic duct. The cystic duct was ligated with an 0 silk suture ligature and divided. The gallbladder was sent for pathology. The right upper quadrant was irrigated. The liver bed was cauterized to gain hemostasis. An area of skin in the right lower quadrant was elevated and electrocautery was used to make a window. [place]'s were used to retract the fat into the an terior fascia was revealed and a cruciate incision was made in the anterior fascia. The muscle was spared and the posterior rectus sheath was opened. The terminal ileum was delivered through this to the skin. A 15 [place] round drain was placed into the right upper quadrant and through the right abdominal wall and to bulb suction. The entire abdomen was irrigated once more and suctioned dry. There appeared to be oozing. The patient was getting blood and plasma during the case. Next for closure 0 Ethibond sutures were used in an interrupted [id number] fashion. #2 Ethibond retention sutures were also placed intermittently and tied to bolsters. Once the fascia was completely closed the fascia to the former colostomy site was also closed with a running 0 Ethibond suture. The anterior abdominal wound was packed with a soaked Kerlix as was the left lower quadrant prior ostomy site. The drain was sutured in place with a 2-0 nylon suture. Next to the ileostomy was matured. The staple line was removed and the ileostomy was brooked and matured with interrupted 3-0 Vicryl sutures. An appliance was placed over the stoma. The patient was taken back to the ICU in critical condition on vasopressors receiving plasma. Patient made minimal urine during the case. - Admit VTE Documentation VTE Mechan Device Prophylaxis: SCD's
--- NOTE | 2018-05-24 14:25 | NURSING ---
RETURNED FROM OR HR 148 BP 64/[address] KOENIG [address] HR 109
[2018-05-24 14:35] LABS: International Normalized Ratio 1.8; Prothrombin Time (Protime)PT. 20.3 SECONDS (11.7-14.9)
[2018-05-24 14:42] LABS: Hematocrit 25.2 % (40-54); Hemoglobin 8.4 g/dl (13.0-16.5); Mean Corp Hgb Conc 33.3 g/gl (32-36); Mean Corpuscular Hgb 32.8 pg (27.0-32.0); Mean Corpuscular Volume 98.4 fL (80-94); Mean Platelet Vol. 12.8 fl (6.2-12.0); Platelet Count 182 K/mm3 (150-450); RBC Distribution Width SD 64.3 fl (35.1-43.9); Red Blood Count 2.56 M/mm3 (4.6-6.2); White Blood Count 25.6 K/mm3 (4.4-11.0)
[2018-05-24 14:43] LABS: Differential Indicated MANUAL DIFF; POSITIVE COUNT NO; POSITIVE DIFFERENTIAL NO; POSITIVE MORPHOLOGY YES
[2018-05-24 14:46] LABS: ALB/GLOB Ratio 0.3 RATIO (0.9-2.4); AST(SGOT) 86 U/L (15-37); Alanine Aminotransfer ALT/SGPT 18 U/L (16-61); Alkaline Phosphatase 173 U/L (45-117); Anion Gap 10 (5-15); BUN 50 mg/dL (7-18); BUN/Creat Ratio 13.3 RATIO (10-20); Calcium,Total 6.3 mg/dL (8.5-10.1); Chloride 107 mmol/L (98-107); Creatinine, Serum 3.75 mg/dL (0.70-1.30); EST Glomerular Filtration Rate 18 mL/min (>60); Est Glom Filt Rate - Afr Amer 21 mL/min (>60); Estimated Creatinine Clearance 22.71 ml/min; Glucose 179 mg/dL (74-106); Potassium 3.5 mmol/L (3.5-5.1); Sodium Level 138 mmol/L (136-145)
[2018-05-24 14:46] LABS: Base Excess -5 mmol/L (-2 to +2); Blood Gas Specimen Type ALINE; FI02 40; Mode VC+; O2 Delivery Device Vent; PEEP 5; PO2 68 mmHG (75-100); RR 16; SITE OTHER; SO2 93 % (95-99); Time Given 1442; Total Carbon Dioxide 21 mmol/L; Vt 500; pCO2 35.4 mmHg (35-45); pH 7.36 (7.35-7.45)
[2018-05-24] MEDS: Sodium Bicarbonate 8.4% 50 ML Syringe 50 MEQ IV (15:05)
[2018-05-24 15:19] LABS: Lymphocyte 3 % (19-41); Monocyte 5 % (0-10); Myelocyte 1 (0-0); Neutrophil-Segmented 87 % (47-70); Platelet Estimate ADEQUATE (ADEQ); Promyelocyte 4 (0-0); Total Cells Counted 100 (MANUAL DIFF); Toxic Granulation 1+
[2018-05-24 15:20] LABS: Absolute Neutrophil Count 22.3 X10^3/uL (2.0-7.7); Red Cell Morphology NORM C+C NORMAL (NORM C&C)
--- NOTE | 2018-05-24 15:48 | NURSING ---
father Mckinley notified condition is extremely grave encouraged to come in and notify additional family , he siad it is just himself & sister of patient they would not be coming in @ this time, will keep informed of condition , francisco gtt @ 60mcg/min ,vasopressin 0.04units/min , levo 30mcg min/28..1ml amio bag #1 1 mg 33.3ml precedex 0.5 mcg/kg/hr 14.4
[2018-05-24 16:26] LABS: Hematocrit 24.3 % (40-54); Mean Corp Hgb Conc 32.9 g/gl (32-36); Mean Corpuscular Hgb 31.6 pg (27.0-32.0); Mean Platelet Vol. 12.9 fl (6.2-12.0); Platelet Count 133 K/mm3 (150-450); RBC Distribution Width CV 17.5 % (11.6-14.6); Red Blood Count 2.53 M/mm3 (4.6-6.2)
[2018-05-24 16:27] LABS: Differential Indicated MANUAL DIFF; POSITIVE COUNT YES; POSITIVE DIFFERENTIAL YES; POSITIVE MORPHOLOGY YES
[2018-05-24] MEDS: Hydrocortisone Sod Succinate 100 MG/2 ML Vial IV (16:28)
[2018-05-24 16:44] LABS: Lymphocyte 7 % (19-41); Monocyte 2 % (0-10); Neutrophil-Segmented 91 % (47-70); Total Cells Counted 100 (MANUAL DIFF)
[2018-05-24 16:45] LABS: Anisocytosis 1+; Hypochromasia 1+
[2018-05-24 16:46] LABS: Platelet Estimate SLT DEC (ADEQ)
[2018-05-24 16:50] LABS: Polychromasia RARE; Toxic Granulation 1+
[2018-05-24 16:52] LABS: Absolute Lymphocyte Count 1.75 X10^3/ul (0.83-4.51); Absolute Neutrophil Count 22.8 X10^3/uL (2.0-7.7)
--- NOTE | 2018-05-24 17:25 | NURSING ---
pt raoul on monitor dr gil notified, sister @ bedside, no bp ,
--- NOTE | 2018-05-24 17:30 | NURSING ---
pt , warehouse assistant & vacuum furnace operator notified
--- NOTE | 2018-05-24 17:36 | NURSING ---
pt clearing house clerk & rubber flap tuber machine operator notified
--- NOTE | 2018-05-25 05:57 | PCM.DEATH ---
Preliminary Cause of Septic shock Date of Admission: 05/03/18 Date of : 05/24/18 - Principle Diagnosis Septic shock Acute kidney injury, on HD Acute hypoxic respiratory failure, s/p mechanical ventilator A. fib with RVR Hypokalemia Left lower extremity DVT Left colovesical fistula status post cystoscopy, post evacuation of blood clots, laser of bladder stone Status post exploratory laparotomy, status post colectomy Hospital Course 62-year-old male who had had a long and protracted hospital stay. He was admitted on 05/03/18 with hematuria. He has history of hypertension, dilated cardiomyopathy with EF of 30%, coronary artery disease, nicotine dependence, chronic atrial fibrillation on chronic Coumadin. He was admitted to the telemetry bed, his Coumadin was stopped, INR reversed. Urology was consulted, he underwent cystoscopy on 05/03/18 which showed colovesical vesicular fistula. Patient underwent colonoscopy on 05/06/18 by general surgery. Cardiac clearance was obtained. Patient underwent sigmoid colectomy with anastomosis on 05/07/18 in conjunction with urology that recommended chronic Maldonado placement with healing anticipated for the colovesicular fistula. Operatively, patient was found to be hypotensive in the immediate postop. Improved with IV fluids. He was managed conservatively with improvement in his diet. He was found to have a left gastrocnemius vein DVT. Started on IV heparin. He was subsequently was found to be hypotensive again. Imaging of his abdomen found an anastomotic leak. He underwent exploratory laparotomy with creation of end colostomy on 05/13/18. Patient was subsequently managed in the ICU. Had improved and was transferred out of the ICU. He became hypotensive again and was transferred back to ICU. He was found to have a perforated viscus. He underwent exploratory laparoscopy, laparotomy with repair of perforated jejunum. Patient subsequently was managed on IV pressors. Infectious disease was consulted. He was on IV antibiotics. Patient was for the most part off sedative, intubated, on mechanical ventilator, communicates by hand gestures and writing on the board. Shins white cell count continue to get worse, repeat abdominal CT showed possible colitis of the descending colon. Patient was empirically started on p.o. vancomycin as well as IV Flagyl for possible C. difficile. C. difficile panel was negative. These antibiotics were discontinued. Continued on IV vancomycin and meropenem. Found to have candiduria, fluconazole was started. Patient continued to have persistent leukocytosis. He subsequently had acute kidney injury which was not getting better, he was seen by nephrology. He was started on dialysis via right tunneled catheter. Patient continued to remain the same, had a bedside colonoscopy done through his colostomy that showed ischemic colitis. Patient was sent to surgery on 05/24/18 for total colectomy with his consent. His father and sister were at the bedside. Patient return back hypotensive, requiring a third pressor. Patient was given plasma and volume with no improvement. Blood pressure continued to drop. Patient at 5:25 PM
[2018-05-28 13:09] LABS: Pathologist Review Reviewed
[2018-05-28 13:09] LABS: Pathologist Review Reviewed
== END 2018-05-24 19:20 | DRG 981 ==
LOC: ED 07:57 → PCU 10:06 → ICU 05-13 11:55 → PCU 05-15 14:27 → ICU 05-17 10:12
PROVIDERS: Anesthesiology; Hospitalist; Internal Medicine; Internal Medicine Cardiovascular Disease; Internal Medicine Critical Care Medicine; Internal Medicine Nephrology; Student in an Organized Health Care Education/Training Program; Surgery; Urology; Admitting Provider Internal Medicine; Emergency Provider Emergency Medicine; Family Provider Nurse Practitioner; PCP Nurse Practitioner; Visit Provider Internal Medicine
PROC: 0TBB8ZX Excision of Bladder, Via Natural or Artificial Opening Endoscopic, Diagnostic (ICD-10-PCS; principal; 2018-05-03 17:40)
PROC: 0DJD8ZZ Inspection of Lower Intestinal Tract, Via Natural or Artificial Opening Endoscopic (ICD-10-PCS; CPT 45378; principal; 2018-05-06 07:25)
PROC: 0DTN0ZZ Resection of Sigmoid Colon, Open Approach (ICD-10-PCS; CPT 44204; principal; 2018-05-07 12:25)
PROC: 0TJB8ZZ Inspection of Bladder, Via Natural or Artificial Opening Endoscopic (ICD-10-PCS; CPT 51550; 2018-05-07 12:25)
PROC: 0DQA0ZZ Repair Jejunum, Open Approach (ICD-10-PCS; principal; 2018-05-18 01:30)
PROC: 0DTE0ZZ Resection of Large Intestine, Open Approach (ICD-10-PCS; principal; 2018-05-24 11:35)
DX: N32.1 Vesicointestinal fistula (principal); J96.01 Acute respiratory failure with hypoxia; A41.9 Sepsis, unspecified organism; R65.21 Severe sepsis with septic shock; K65.1 Peritoneal abscess; K63.1 Perforation of intestine (nontraumatic); N17.0 Acute kidney failure with tubular necrosis; I82.4Z2 Acute embolism and thrombosis of unspecified deep veins of left distal lower extremity; K91.89 Other postprocedural complications and disorders of digestive system; K81.0 Acute cholecystitis; T81.49XA Infection following a procedure, other surgical site, initial encounter; T81.44XA Sepsis following a procedure, initial encounter; I50.22 Chronic systolic (congestive) heart failure; B37.49 Other urogenital candidiasis; K55.9 Vascular disorder of intestine, unspecified; I42.9 Cardiomyopathy, unspecified; N21.0 Calculus in bladder; E87.6 Hypokalemia; I48.2 Chronic atrial fibrillation; I25.10 Atherosclerotic heart disease of native coronary artery without angina pectoris; F17.210 Nicotine dependence, cigarettes, uncomplicated; E66.3 Overweight; I27.20 Pulmonary hypertension, unspecified; I35.0 Nonrheumatic aortic (valve) stenosis; G47.33 Obstructive sleep apnea (adult) (pediatric); Z79.899 Other long term (current) drug therapy; Z79.01 Long term (current) use of anticoagulants; Z68.29 Body mass index [BMI] 29.0-29.9, adult; K57.30 Diverticulosis of large intestine without perforation or abscess without bleeding; Z53.31 Laparoscopic surgical procedure converted to open procedure; K42.9 Umbilical hernia without obstruction or gangrene; Y83.2 Surgical operation with anastomosis, bypass or graft as the cause of abnormal reaction of the patient, or of later complication, without mention of misadventure at the time of the procedure; R31.0 Gross hematuria; I11.0 Hypertensive heart disease with heart failure; Z66 Do not resuscitate; D64.9 Anemia, unspecified
CPT/HCPCS: 31720; 36415; 36620; 71045; 74018; 74176; 74177; 80048; 80053; 80069; 80076; 80202; 81001; 82533; 82550; 82607; 82747; 82803; 82962; 83036; 83090; 83605; 83735; 83880; 83921; 84100; 84134; 84443; 84478; 85014; 85018; 85025; 85027; 85610; 85730; 86704; 86706; 86850; 86900; 86920; 87040; 87070; 87075; 87077; 87086; 87088; 87186; 87205; 87340; 87493; 87641; 88302; 88304; 88305; 88307; 88341; 88342; 90937; 93005; 93971; 94002; 94003; 94640; 94660; 94762; 95831; 97110; 97162; 97165; 97530; 97535; 97802; 97803; 99282; J2185; J7030; J7040; J7050; J7120; P9016; P9017; Q9967; A4216; C1751; C1752; C1760; G0257; J0610; J0834; J1170; J1610; J1940; J2405; J3490